=== PATIENT | female | born 1940 | race Caucasian/White ===

== ENCOUNTER 2017-04-11 17:36 | Emergency (ER) | payer MEDICARE ==
[2017-04-11] MEDS ORDERED: Sodium Chloride 0.9% 1000 ML 1,000 ML IV STA (18:19)
--- NOTE | 2017-04-11 18:25 | ERPHSYRPT ---
- History of Present Illness Time Seen by Provider: 04/11/17 18:15 Source: patient Exam Limitations: no limitations Patient Subjective Stated Complaint: HAS HAD SMALL RED AREA TO RIGHT FOREARM FOR TWO WEEKS. BEING TREATED WITH MUPIRICIN OINT. SAW THE INFUSION C[facility] TODAY FOR FLUIDS AND STARTED ON CEPHALEXIN FOR INFECTION TODAY. Triage Nursing Assessment: TO ROOM PER W/C. SKIN PALE, W/D. RESP EASY. MOUTH DRY. NO VOMITING AT PRESENT TIME. Physician History: This is a 76-year-old white female with history of peripheral neuropathy, diabetes, arrhythmia, high blood pressure, rheumatoid arthritis, She arrives with complaint of a approximately 2 cm lesion on her right distal forearm ulnar aspect symptoms for approximately 2 weeks this is been raised erythematous with a darkened center. She states that she felt like she was dehydrated she was having chills today she saw her family doctor sent her to the infusion center and was given 2 L of normal saline and given a prescription for Keflex of which she has taken one dose. She states that she feels like she is having chills and feels hot. She is not vomiting not short of breath. She denies other complaints. 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 Past surgical history includes cardiac catheter, hysterectomy, bladder suspension Timing/Duration: other (lesion on right arm for 2 weeks, feels hot and chills today) Associated Symptoms: chills, fever, rash (lesion right arm), No nausea, No vomiting, No abdominal pain, No shortness of breath, No heartburn, No diaphoresis, No cough, No chest pain, No headaches, No loss of appetite, No malaise, No syncope, No seizure, No weakness Allergies/Adverse Reactions: No Known Drug Allergies Allergy (Verified 04/11/17 18:07) Home Medications: Amlodipine Besylate [Norvasc] 2.5 mg PO DAILY 04/11/17 [History] Aspirin EC 81 mg [Ecotrin 81 mg] 81 mg PO DAILY 04/11/17 [History] Atorvastatin Calcium [Lipitor 20MG Tablet] 20 mg PO HS 04/11/17 [History] Carvedilol 6.25 mg [Coreg 6.25 MG] 6.25 mg PO BID 04/11/17 [History] Fluoxetine HCl 20 mg [Prozac 20 MG] 20 mg PO DAILY 04/11/17 [History] Folic Acid 2 tab PO DAILY 04/11/17 [History] Gabapentin [Neurontin] 600 mg PO BID 04/11/17 [History] Glipizide/Metformin HCl [Glipizide-Metformin 2.5-500 mg] 1 each PO BID 04/11/17 [History] Golimumab [Simponi Aria] 50 mg IV CLARIFY 04/11/17 [History] Hydroxychloroquine Sulfate [Plaquenil] 200 mg PO BID 04/11/17 [History] Isosorbide Mononitrate 30 mg [Imdur 30 MG] 30 mg PO DAILY 04/11/17 [History ] Losartan/Hydrochlorothiazide [Losartan-Hctz 50-12.5 mg Tab] 1 each PO DAILY [History] Lysine HCl [l-Lysine] 500 mg PO DAILY 04/11/17 [History] Methotrexate Sodium [Methotrexate] 8 tab PO WEEKLY 04/11/17 [History] [place]-3 Fatty Acids/Fish Oil [Fish Oil 1,000 mg Capsule] 1,000 mg PO DAILY 04/11/17 [History] Hx Tetanus, Diphtheria Vaccination/Date Given: No Hx Influenza Vaccination/Date Given: Yes Hx Pneumococcal Vaccination/Date Given: Yes - Review of Systems Constitutional: Fever, Chills, No Fatigue, No Lethargy, No Malaise, No Night Sweats, No Weakness, No Weight Loss Eyes: No Symptoms Ears, Nose, & Throat: No Symptoms, No Ear Pain, No Ear Discharge, No Hearing Changes, No Tinnitus, No Nose Pain, No Nose Congestion, No Nose Discharge, No Sinus Drainage, No Epistaxis, No Mouth Pain, No Loose Teeth, No Throat Pain, No Throat Swelling, No Hoarse, No Painful Swallowing, No Snoring, No Stridor Respiratory: No Cough, No Dyspnea Cardiac: No Chest Pain, No Edema, No Syncope Abdominal/Gastrointestinal: No Abdominal Pain, No Nausea, No Vomiting, No Diarrhea Genitourinary Symptoms: No Dysuria Musculoskeletal: No Back Pain, No Neck Pain Skin: Other (2 cm raised erythematous lesion right distal forearm ulnar aspect with darkened center) Neurological: No Dizziness, No Focal Weakness, No Sensory Changes Psychological: No Symptoms Endocrine: No Symptoms All Other Systems: Reviewed and Negative - Past Medical History Pertinent Past Medical History: Yes Neurological History: Peripheral Neuropathy ENT History: No Pertinent History Cardiac History: Arrhythmia, Hypertension Respiratory History: No Pertinent History Endocrine Medical History: Diabetes Type II Musculoskeletal History: Rheumatoid Arthritis, Other GI Medical History: No Pertinent History History: No Pertinent History Psycho-Social History: No Pertinent History Female Reproductive Disorders: No Pertinent History Other Medical History: Heart flutter, 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, lupus, Schograns - Past Surgical History Past Surgical History: Yes Neuro Surgical History: No Pertinent History Cardiac: Cardiac Catheterization Respiratory: No Pertinent History Gastrointestinal: No Pertinent History Genitourinary: No Pertinent History Musculoskeletal: No Pertinent History Female Surgical History: Hysterectomy Other Surgical History: bladder suspension - Social History Smoking Status: Never smoker Exposure to second hand smoke: No Drug Use: none Patient Lives Alone: No - Nursing Vital Signs Nursing Vital Signs: Initial Vital Signs Temperature 100.7 F 04/11/17 17:42 Pulse Rate 80 04/11/17 17:42 Respiratory Rate 18 04/11/17 17:42 Blood Pressure 160/66 04/11/17 17:42 O2 Sat by Pulse Oximetry 93 L 04/11/17 17:42 Pain Scale Pain Intensity 0 - Physical Exam General Appearance: no apparent distress, alert Eye Exam: PERRL/EOMI, eyes nml inspection Ears, Nose, Throat Exam: normal ENT inspection, TMs normal, pharynx normal, moist mucous membranes Neck Exam: normal inspection, non-tender, supple, full range of motion Respiratory Exam: normal breath sounds, lungs clear, No respiratory distress Cardiovascular Exam: regular rate/rhythm, normal heart sounds, normal peripheral pulses Gastrointestinal/Abdomen Exam: soft, normal bowel sounds, No tenderness, No mass Back Exam: normal inspection, normal range of motion, No CVA tenderness, No vertebral tenderness Extremity Exam: normal range of motion, other (2 cm raised erythematous lesion right distal forearm ulnar aspect) Neurologic Exam: alert, oriented x 3, cooperative, normal mood/affect, nml cerebellar function, nml station & gait, sensation nml, No motor deficits Skin Exam: other (2 cm raised erythematous lesion with darkened center right distal forearm ulnar aspect) Lymphatic Exam: No adenopathy SpO2 Interpretation: normal (93%) SpO2: 93 Oxygen Delivery: Room Air Ordered Tests: Active Orders 24 hr Category Date Time Status IV Insertion STAT Care 04/11/17 18:19 Active BLOOD CULTURE Stat Lab 04/11/17 18:45 Received CBC W DIFF Stat Lab 04/11/17 18:44 Completed CMP Stat Lab 04/11/17 18:44 Completed CULTURE,URINE Stat Lab 04/11/17 18:44 Received Manual Differential NC Stat Lab 04/11/17 18:44 Completed UA W/ MICROSCOPIC Stat Lab 04/11/17 18:44 Completed Medication Summary Generic Name Dose Route Start Last Admin Trade Name Freq PRN Reason Stop Dose Admin Sodium Chloride 1,000 mls @ 999 mls/hr 04/11/17 18:19 04/11/17 18:35 Sodium Chloride 0.9% 1000 Ml IV 04/11/17 19:19 999 mls/hr .[id number] STA Administration Discontinued Medications Generic Name Dose Route Start Last Admin Trade Name Freq PRN Reason Stop Dose Admin Sodium Chloride Confirm 04/11/17 18:34 Sodium Chloride 0.9% 1000 Ml Administered 04/11/17 18:35 Dose 1,000 mls @ ud .ROUTE .STK-MED ONE Lab/Rad Data: Laboratory Result Diagrams 04/11/17 18:44 04/11/17 18:44 Laboratory Results 04/11/17 04/11/17 04/11/17 Range/Units 18:44 18:44 18:44 WBC 14.2 H (4.0-10.5) K/mm3 RBC 3.61 L (4.1-5.4) M/mm3 Hgb 11.1 L (12.0-16.0) gm/dl Hct 33.1 L (35-47) % MCV 91.7 (78-100) fl MCH 30.7 (26-32) pg MCHC 33.5 (32-36) g/dl RDW 15.0 H (11.5-14.0) % Plt Count 143 L (150-450) K/mm3 MPV 9.9 H (6-9.5) fl Gran % 67.0 H (36.0-66.0) % Lymphocytes % 14.4 L (24.0-44.0) % Monocytes % 18.2 H (0.0-12.0) % Eosinophils % 0.1 (0.00-5.0) % Basophils % 0.3 (0.0-0.4) % Basophils # 0.04 (0-0.4) Sodium 137 (136-145) mEq/L Potassium 3.4 L (3.5-5.1) mEq/L Chloride 103 (98-107) mEq/L Carbon Dioxide 22.2 (21-32) mEq/L Anion Gap 15.0 (5-15) MEQ/L BUN 24 H (9-20) mg/dL Creatinine 1.16 (0.55-1.30) mg/dl Estimated GFR 49 ML/MIN Glucose 80 (70-110) MG/DL Calcium 8.2 L (8.5-10.1) mg/dL Total Bilirubin 1.60 H (0.2-1.0) mg/dL AST 40 H (15-37) U/L ALT 45 (12-78) U/L Alkaline Phosphatase 96 (46-116) U/L Serum Total Protein 7.0 (6.4-8.2) gm/dL Albumin 3.2 L (3.4-5.0) g/dL Ur Collection Type VOID Urine Color YELLOW (YELLOW) Urine Appearance SLIGHTLY CLOUDY (CLEAR) Urine pH 5.0 (5-6) Ur Specific [place] 1.010 (1.005-1.025) Urine Protein TRACE (Negative) Urine Ketones NEGATIVE (NEGATIVE) Urine Blood 250 (0-5) Jack/ul Urine Nitrite NEGATIVE (NEGATIVE) Urine Bilirubin NEGATIVE (NEGATIVE) Urine Urobilinogen NORMAL (0-1) mg/dL Ur Leukocyte Esterase 1+ (NEGATIVE) Urine Microscopic RBC 5-10 (0-2) /HPF Urine Microscopic WBC 25-50 (0-5) /HPF Ur Epithelial Cells FEW (FEW) /HPF Urine Bacteria MODERATE (NEGATIVE) /HPF Urine Culture Reflexed YES (NO) Urine Glucose NEGATIVE (NEGATIVE) mg/dL Specimen Received 04/11/17 1900 - Progress Progress: improved Progress Note: 04/11/17 19:16 Patient feeling better after IV fluids patient with 25-50 white cells per high- power field in her urine. Will give patient Rocephin 1 g IV. Patient does not want to be admitted. Patient does have a prescription for Keflex from her family doctor plans to follow-up with him tomorrow - Departure Time of Disposition: :17 Departure Disposition: Home Clinical Impression: Cellulitis of right forearm Fever Qualifiers: Fever type: due to other condition Qualified Code(s): R50.81 - Fever presenting with conditions classified elsewhere UTI (urinary tract infection) Qualifiers: Urinary tract infection type: acute cystitis Hematuria presence: without hematuria Qualified Code(s): N30.00 - Acute cystitis without hematuria Condition: Fair Critical Care Time: No Referrals: KATHIE HODGE MD [Primary Care Provider] - Instructions: Fever (Symptom) -- Adult Additional Instructions: Return home. Plenty of fluids Tylenol every 4 hours as needed for temperature greater than 100.5. Keflex as prescribed by your family doctor. Contact your family doctor tomorrow and schedule follow-up appointment. Return for acute distress or for severe symptoms.
[2017-04-11] MEDS ORDERED: Sodium Chloride 0.9% 1000 ML 1,000 ML ONE (18:34)
[2017-04-11 18:48] LABS: BASOPHIL % 0.3 % (0.0-0.4); Eosinophil % 0.1 % (0.00-5.0); Lymphocytes % 14.4 % (24.0-44.0); Mean Cell Volume 91.7 fl (78-100); Mean Corpuscular Hemoglobin 30.7 pg (26-32); Mean Platelet Volume 9.9 fl (6-9.5); Monocytes % 18.2 % (0.0-12.0); Platelet Count 143 K/mm3 (150-450); Red Blood Count 3.61 M/mm3 (4.1-5.4); White Blood Count 14.2 K/mm3 (4.0-10.5)
[2017-04-11 19:10] LABS: ALBUMIN 3.2 g/dL (3.4-5.0); BILIRUBIN,TOTAL 1.6 mg/dL (0.2-1.0); Carbon Dioxide 22.2 mEq/L (21-32); Potassium 3.4 mEq/L (3.5-5.1)
[2017-04-11 19:13] LABS: Bilirubin NEGATIVE (NEGATIVE); Blood 250 Ery/ul (0-5); COMPLETE URINE MICROSCOPIC? YES; Collection Type VOID; Glucose NEGATIVE (NEGATIVE); Leukocyte Esterase 1+ (NEGATIVE)
[2017-04-11 19:14] LABS: ADD URINE CULTURE? YES (NO); Bacteria MODERATE /HPF (NEGATIVE); Epithelial Cells FEW /HPF (FEW); WBC 25-50 /HPF (0-5)
[2017-04-11] MEDS ORDERED: ROCEPHIN 1 Gm-D5w 50 ml Bag** 1 G/50 ML IVPB IV STA (19:16)
[2017-04-11] MEDS ORDERED: ROCEPHIN 1 Gm-D5w 50 ml Bag** 1 G/50 ML IVPB IV ONE (19:29)
[2017-04-11 19:47] VITALS: BP 118/60; PULSE 76; O2SAT 100
[2017-04-11 20:56] LABS: ANISOCYTOSIS 1+; BAND 4 % (0.0-2.0); Basophil 1 % (0.0-1.0); Platelet Estimate NORMAL (NORMAL); Polychromasia 1+; Total Cells Counted 100
== END 2017-04-11 19:48 | disposition home or self-care (01) ==
LOC: ED 17:36
DX: R50.81 Fever presenting with conditions classified elsewhere (principal); N30.00 Acute cystitis without hematuria; L03.113 Cellulitis of right upper limb; E11.9 Type 2 diabetes mellitus without complications; I10 Essential (primary) hypertension; M35.00 Sjogren syndrome, unspecified; Z79.84 Long term (current) use of oral hypoglycemic drugs; Z79.899 Other long term (current) drug therapy
CPT/HCPCS: 36000; 36415; 80053; 81000; 85025; 87040; 87086; 96360; 96365; 99284; J0696

== ENCOUNTER 2018-10-12 08:31 | Inpatient (IN) | payer MEDICARE ==
[~2018-10-12 08:31] MED LIST: Ambien 5 MG Tablet ONE; Coreg 6.25 MG ONE; NEURONTIN 300 MG ONE; Sodium Chloride 0.9% 1000 ML 1,000 ML ONE; ZOCOR 20MG ONE
--- NOTE | 2018-10-12 09:22 | ERPHSYRPT ---
- History of Present Illness Time Seen by Provider: 10/12/18 09:15 Historian: patient Exam Limitations: no limitations Patient Subjective Stated Complaint: lower abd since last sunday. dx with uti and put on antibiotic but is not getting any better Triage Nursing Assessment: ambulated to room per self. skin w/d, color pale. patient moaning at times. abd soft, tender in lower abd. Physician History: 77-year-old white female arrives with suprapubic pain and dysuria symptoms for 5 days. She states that she was placed on an antibiotic by her family doctor doesn't think it is getting any better. She does state that she thinks she has some bladder prolapse. Past medical history includes peripheral neuropathy, arrhythmia, high blood pressure, diabetes type 2, rheumatoid arthritis, heart flutter, lupus, Sjogren' s syndrome. Past surgical history includes cardiac catheter, hysterectomy, bladder suspension Timing/Duration: day(s) (5 days) Activities at Onset: none Quality: cramping, sharpness Abdominal Pain Onset Location: suprapubic Pain Radiation: no radiation Severity of Pain-Max: moderate Severity of Pain-Current: moderate Modifying Factors: Improves With: other (patient states pain only with urinating ) Associated Symptoms: No back, No chest pain, No diaphoresis, No diarrhea, No fever/chills, No fatigue, No headache, No heartburn, No loss of appetite, No nausea, No neck pain, No rash, No shortness of breath, No syncope, No vomiting, No weakness Previous symptoms: recently seen (seen by Dr. Hodge) Allergies/Adverse Reactions: No Known Drug Allergies Allergy (Verified 10/12/18 09:02) Home Medications: Amlodipine Besylate [Norvasc] 2.5 mg PO DAILY 04/11/17 [History] Aspirin EC 81 mg [Ecotrin 81 mg] 81 mg PO DAILY 04/11/17 [History] Atorvastatin Calcium [Lipitor 20MG Tablet] 20 mg PO HS 04/11/17 [History] Carvedilol 6.25 mg [Coreg 6.25 MG] 6.25 mg PO BID 04/11/17 [History] Fluoxetine HCl 20 mg [Prozac 20 MG] 20 mg PO DAILY 04/11/17 [History] Folic Acid 2 tab PO DAILY 04/11/17 [History] Gabapentin [Neurontin] 600 mg PO BID 04/11/17 [History] Glipizide/Metformin HCl [Glipizide-Metformin 2.5-500 mg] 1 each PO BID 04/11/17 [History] Golimumab [Simponi Aria] 50 mg IV CLARIFY 04/11/17 [History] Hydroxychloroquine Sulfate [Plaquenil] 200 mg PO BID 04/11/17 [History] Isosorbide Mononitrate 30 mg [Imdur 30 MG] 30 mg PO DAILY 04/11/17 [History ] Losartan/Hydrochlorothiazide [Losartan-Hctz 50-12.5 mg Tab] 1 each PO DAILY [History] Lysine HCl [l-Lysine] 500 mg PO DAILY 04/11/17 [History] Methotrexate Sodium [Methotrexate] 8 tab PO WEEKLY 04/11/17 [History] [place]-3 Fatty Acids/Fish Oil [Fish Oil 1,000 mg Capsule] 1,000 mg PO DAILY 04/11/17 [History] Hx Tetanus, Diphtheria Vaccination/Date Given: Yes Hx Influenza Vaccination/Date Given: Yes Hx Pneumococcal Vaccination/Date Given: Yes - Review of Systems Constitutional: No Fever, No Chills Eyes: No Symptoms Ears, Nose, & Throat: No Symptoms Respiratory: No Cough, No Dyspnea Cardiac: No Chest Pain, No Edema, No Syncope Abdominal/Gastrointestinal: Abdominal Pain (suprapubic abdominal pain) Genitourinary Symptoms: Dysuria Musculoskeletal: No Symptoms Skin: No Rash Neurological: No Dizziness, No Focal Weakness, No Sensory Changes Psychological: No Symptoms Endocrine: No Symptoms All Other Systems: Reviewed and Negative (not answering the phone) - Past Medical History Pertinent Past Medical History: Yes Neurological History: Peripheral Neuropathy ENT History: No Pertinent History Cardiac History: Arrhythmia, Hypertension Respiratory History: No Pertinent History Endocrine Medical History: Diabetes Type II Musculoskeletal History: Rheumatoid Arthritis, Other GI Medical History: No Pertinent History History: No Pertinent History Psycho-Social History: No Pertinent History Female Reproductive Disorders: No Pertinent History Other Medical History: Heart flutter, 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, lupus, Schograns - Past Surgical History Past Surgical History: Yes Neuro Surgical History: No Pertinent History Cardiac: Cardiac Catheterization Respiratory: No Pertinent History Gastrointestinal: No Pertinent History Genitourinary: No Pertinent History Musculoskeletal: No Pertinent History Female Surgical History: Hysterectomy Other Surgical History: bladder suspension - Social History Smoking Status: Never smoker Exposure to second hand smoke: No Drug Use: none Patient Lives Alone: No - Female History Hx Now: No - Nursing Vital Signs Nursing Vital Signs: Initial Vital Signs Temperature 98.3 F 10/12/18 08:52 Pulse Rate 79 10/12/18 08:52 Respiratory Rate 18 10/12/18 08:52 Blood Pressure 179/77 10/12/18 08:52 O2 Sat by Pulse Oximetry 98 10/12/18 08:52 Pain Scale Pain Intensity 5 - Physical Exam General Appearance: no apparent distress, alert Eye Exam: PERRL/EOMI, eyes nml inspection Ears, Nose, Throat Exam: normal ENT inspection (return if you don't believe), pharynx normal, moist mucous membranes Neck Exam: normal inspection, non-tender, supple, full range of motion Respiratory Exam: normal breath sounds, lungs clear, No respiratory distress Cardiovascular Exam: regular rate/rhythm, normal heart sounds, capillary refill <2 sec Gastrointestinal/Abdomen Exam: soft, No tenderness, No mass Back Exam: normal inspection, normal range of motion, No CVA tenderness, No vertebral tenderness Extremity Exam: normal inspection, normal range of motion, pelvis stable Neurologic Exam: alert, oriented x 3, cooperative, timber cruiser II-XII nml as tested, normal mood/affect, nml cerebellar function, sensation nml, No motor deficits Skin Exam: normal color, warm, dry SpO2 Interpretation: normal (98%) SpO2: 98 Ordered Tests: Active Orders 24 hr Category Date Time Status IV Insertion STAT Care 10/12/18 09:18 Active AMYLASE Stat Lab 10/12/18 09:10 Completed BLOOD CULTURE Stat Lab 10/12/18 11:00 Ordered CBC W DIFF Stat Lab 10/12/18 09:10 Completed CMP Stat Lab 10/12/18 09:10 Completed CULTURE,URINE Stat Lab 10/12/18 10:19 Received LIPASE Stat Lab 10/12/18 09:10 Completed Manual Differential NC Stat Lab 10/12/18 09:10 Completed UA W/RFX UR CULTURE Stat Lab 10/12/18 10:19 Completed Medication Summary Generic Name Dose Route Start Last Admin Trade Name Freq PRN Reason Stop Dose Admin Ceftriaxone Sodium/Dextrose 1 g in 50 mls @ 100 mls/hr 10/12/18 11:02 Rocephin 1 Gm-D5w 50 Ml Bag IV 10/12/18 11:31 STAT STA Lab/Rad Data: Laboratory Result Diagrams 10/12/18 09:10 10/12/18 09:10 Laboratory Results 10/12/18 10/12/18 10/12/18 Range/Units 10:19 09:10 09:10 WBC 15.3 H (4.0-10.5) K/mm3 RBC 4.01 L (4.1-5.4) M/mm3 Hgb 12.7 (12.0-16.0) gm/dl Hct 37.6 (35-47) % MCV 93.8 (78-100) fl MCH 31.6 (26-32) pg MCHC 33.8 (32-36) g/dl RDW 14.4 H (11.5-14.0) % Plt Count 128 L (150-450) K/mm3 MPV 10.3 H (6-9.5) fl Gran % 82.1 H (36.0-66.0) % Eos # (Auto) 0 (0-0.5) Absolute Lymphs (auto) 0.67 L (1.0-4.6) Absolute Monos (auto) 2.05 H (0.0-1.3) Lymphocytes % 4.4 L (24.0-44.0) % Monocytes % 13.4 H (0.0-12.0) % Eosinophils % 0.0 (0.00-5.0) % Basophils % 0.1 (0.0-0.4) % Absolute Granulocytes 12.56 H (1.4-6.9) Segmented Neutrophils 86 H (36.0-66.0) % Band Neutrophils 4 H (0.0-2.0) % Lymphocytes (Manual) 9 L (24-44) % Monocytes (Manual) 1 (0.0-12.0) % Basophils # 0.02 (0-0.4) Platelet Estimate NORMAL (NORMAL) RBC Morphology ABNORMAL Polychromasia 1+ Anisocytosis 1+ Sodium 134 L (137-145) mmol/L Potassium 3.6 (3.5-5.1) mmol/L Chloride 100 (98-107) mmol/L Carbon Dioxide 24 (22-30) mmol/L Anion Gap 14.1 (5-15) MEQ/L BUN 21 H (7-17) mg/dL Creatinine 1.00 (0.52-1.04) mg/dL Estimated GFR 57.4 ML/MIN Glucose 158 H (74-106) mg/dL Calcium 9.5 (8.4-10.2) mg/dL Total Bilirubin 2.80 H (0.2-1.3) mg/dL AST 28 (14-36) U/L ALT 28 (0-35) U/L Alkaline Phosphatase 87 (38-126) U/L Serum Total Protein 7.0 (6.3-8.2) g/dL Albumin 3.6 (3.5-5.0) g/dL Amylase 36 (30-110) U/L Lipase 38 (23-300) U/L Urine Color RAFA (YELLOW) Urine Appearance CLOUDY (CLEAR) Urine pH 6.0 (5-6) Ur Specific [place] 1.015 (1.005-1.025) Urine Protein 100 (Negative) Urine Ketones SMALL (NEGATIVE) Urine Blood LARGE (0-5) Jack/ul Urine Nitrite NEGATIVE (NEGATIVE) Urine Bilirubin NEGATIVE (NEGATIVE) Urine Urobilinogen 2 (0-1) mg/dL Ur Leukocyte Esterase LARGE (NEGATIVE) Urine WBC (Auto) >100 (0-5) /HPF Urine RBC (Auto) >101 (0-2) /HPF U Hyaline Cast (Auto) 3-5 (0-2) /LPF U Epithel Cells (Auto) RARE (FEW) /HPF Urine Bacteria (Auto) MODERATE (NEGATIVE) /HPF U Non-Squamous Epi Cells RARE (FEW) /HPF Urine Culture Reflexed YES (NO) Urine Glucose NEGATIVE (NEGATIVE) mg/dL - Progress Progress: improved Progress Note: 10/12/18 11:03 77-year-old white female with history of peripheral neuropathy, arrhythmia, high blood pressure, diabetes type 2, rheumatoid arthritis, heart flutter, lupus , Sjogren's syndrome. Patient arrives with complaint of dysuria and some right lower quadrant abdominal pain symptoms for 5 days Patient was placed on an antibiotic by her family doctor she states that she continues to have dysuria pain with urination. She does state that she has some bladder prolapse. Patient with labs showing urinalysis specific gravity 1.015 pH 6.0 white blood cell greater than 100 red blood cell greater than 101 Patient's chemistry sodium 134 potassium 3.6 chloride 100 bicarbonate 24 BUN 21 creatinine 1.00 glucose 158 total bilirubin is 2.80 patient's CBC white blood cell 15.3 hemoglobin 12.7 hematocrit 37.6 platelets 128 I've discussed patient' s case with her she does have a urinary tract infection Will obtain blood cultures and give patient Rocephin 1 g IV. She wishes to be admitted I've discussed the case with Dr. Glover. Will go ahead and place patient on a full admission. Diagnosis urinary tract infection. Failed outpatient treatment. Will continue IV fluids IV Rocephin. - Departure Departure Disposition: In-patient Admission Clinical Impression: Failure of outpatient treatment UTI (urinary tract infection) Qualifiers: Urinary tract infection type: site unspecified Hematuria presence: with hematuria Qualified Code(s): N39.0 - Urinary tract infection, site not specified ; R31.9 - Hematuria, unspecified Condition: Fair Critical Care Time: No Referrals: KATHIE HODGE MD [Primary Care Provider] -
[2018-10-12 09:44] LABS: BASOPHIL % 0.1 % (0.0-0.4); Basophil (Absolute #) 0.02 (0-0.4); Eosinophil (Absolute #) 0 (0-0.5); Granulocyte Absolute (ANC) 12.56 (1.4-6.9); Granulocytes % 82.1 % (36.0-66.0); Hematocrit 37.6 % (35-47); Hemoglobin 12.7 gm/dl (12.0-16.0); Lymphocyte (Absolute #) 0.67 (1.0-4.6); Lymphocytes % 4.4 % (24.0-44.0); Mean Cell Volume 93.8 fl (78-100); Mean Corpuscular Hgb Concent. 33.8 g/dl (32-36); Mean Platelet Volume 10.3 fl (6-9.5); Monocyte (Absolute #) 2.05 (0.0-1.3); Monocytes % 13.4 % (0.0-12.0); Platelet Count 128 K/mm3 (150-450); Red Blood Count 4.01 M/mm3 (4.1-5.4); Red Cell Distribution Width 14.4 % (11.5-14.0); White Blood Count 15.3 K/mm3 (4.0-10.5)
[2018-10-12 09:45] LABS: ALBUMIN 3.6 g/dL (3.5-5.0); ANION GAP 14.1 MEQ/L (5-15); BILIRUBIN,TOTAL 2.8 mg/dL (0.2-1.3); Calcium 9.5 mg/dL (8.4-10.2); Potassium 3.6 mmol/L (3.5-5.1)
[2018-10-12 09:47] LABS: Mean Corpuscular Hemoglobin 31.6 pg (26-32)
[2018-10-12 10:16] LABS: BAND 4 % (0.0-2.0); Lymphocytes 9 % (24-44); Monocyte 1 % (0.0-12.0); Neutrophils 86 % (36.0-66.0); Polychromasia 1+; Total Cells Counted 100
[2018-10-12 10:17] LABS: ANISOCYTOSIS 1+; Platelet Estimate NORMAL (NORMAL)
[2018-10-12 10:33] LABS: Appearance CLOUDY (CLEAR); Bilirubin NEGATIVE (NEGATIVE); Blood LARGE Ery/ul (0-5); Epithelial Cells RARE /HPF (FEW); Glucose NEGATIVE (NEGATIVE); Ketones SMALL (NEGATIVE); Leukocyte Esterase LARGE (NEGATIVE); Nitrite NEGATIVE (NEGATIVE); Non-Squamous Epithelial Cells RARE /HPF (FEW); Protein,Urine Dip 100 (Negative); Specific Gravity 1.015 (1.005-1.025); Urobilinogen 2 mg/dL (0-1); WBC >100 /HPF (0-5)
[2018-10-12 10:34] LABS: RBC >101 /HPF (0-2)
[2018-10-12 10:35] LABS: Bacteria MODERATE /HPF (NEGATIVE)
[2018-10-12] MEDS ORDERED: ROCEPHIN 1 Gm-D5w 50 ml Bag** 1 G/50 ML IVPB IV STA (11:02)
[2018-10-12] MEDS ORDERED: ROCEPHIN 1 Gm-D5w 50 ml Bag** 1 G/50 ML IVPB IV ONE (11:09)
[2018-10-12] MEDS ORDERED: NovoLOG Insulin SQ PRN (13:02)
[2018-10-12] MEDS: NORVASC 5 MG PO SCH (14:24)
[2018-10-12] MEDS: Imdur 30 MG PO SCH (14:24)
[2018-10-12] MEDS: Cozaar 50 MG PO SCH (14:24)
[2018-10-12] MEDS: ECOTRIN 81 MG PO SCH (14:25)
[2018-10-12] MEDS: hydroDIURIL 25 MG PO SCH (14:25)
[2018-10-12] MEDS: Prozac 20 MG PO SCH (14:25)
[2018-10-12] MEDS: Coreg 6.25 MG PO SCH ×2 (14:25→21:38)
--- NOTE | 2018-10-12 14:49 | PCM.HP ---
History of Present Illness - Chief Complaint Chief Complaint: UTI History of Present Illness: is a 77 year old female pt of Dr. Hoskins with PMHx DM, HTN, RA, lupus, sjogren's and an arrhythmia who came to ER c/o dysuria and fever. She was treated starting 2d ago by Dr. Hoskins with po macrobid bid. Her dysuria has persisted, and she started having subjective fevers, vomiting, and now some R flank pain. 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 Hoskins did not do a urine culture. - Review of Systems Constitutional: Fever Abdominal/Gastrointestinal: Vomiting Genitourinary Symptoms: Dysuria, Hematuria (microscopic only, not josep), Flank Pain Psychological: No Depression, No Suicidal Ideations All Other Systems: Reviewed and Negative Medications & Allergies Home Medications: Home Medication List Amlodipine Besylate [Norvasc] 2.5 mg PO DAILY 04/11/17 [History Confirmed ] Aspirin EC 81 mg [Ecotrin 81 mg] 81 mg PO DAILY 04/11/17 [History Confirmed 10/12/18] Atorvastatin Calcium [Lipitor 20MG Tablet] 20 mg PO HS 04/11/17 [History Confirmed 10/12/18] Carvedilol 6.25 mg [Coreg 6.25 MG] 6.25 mg PO BID 04/11/17 [History Confirmed 10/12/18] Fluoxetine HCl 20 mg [Prozac 20 MG] 20 mg PO DAILY 04/11/17 [History Confirmed 10/12/18] Folic Acid 2 tab PO DAILY 04/11/17 [History Confirmed 10/12/18] Gabapentin [Neurontin] 300 mg PO UD 04/11/17 [History Confirmed 10/12/18] Glipizide/Metformin HCl [Glipizide-Metformin 2.5-500 mg] 1 each PO DAILY [History Confirmed 10/12/18] Golimumab [Simponi Aria] 50 mg IV CLARIFY 04/11/17 [History Confirmed 10/12/18] Hydroxychloroquine Sulfate [Plaquenil] 200 mg PO DAILY 04/11/17 [History Confirmed 10/12/18] Isosorbide Mononitrate 30 mg [Imdur 30 MG] 30 mg PO DAILY 04/11/17 [ History Confirmed 10/12/18] Losartan/Hydrochlorothiazide [Losartan-Hctz 50-12.5 mg Tab] 1 each PO DAILY [History Confirmed 10/12/18] Lysine HCl [l-Lysine] 500 mg PO DAILY 04/11/17 [History Confirmed 10/12/18] Methotrexate Sodium [Methotrexate] 7 tab PO WEEKLY 04/11/17 [History Confirmed 10/12/18] [place]-3 Fatty Acids/Fish Oil [Fish Oil 1,000 mg Capsule] 1,000 mg PO DAILY 04/11/17 [History Confirmed 10/12/18] Gabapentin 600 mg PO HS 10/12/18 [History Confirmed 10/12/18] Allergies/Adverse Reactions: Allergies Allergy/AdvReac Type Severity Reaction Status Date / Time No Known Drug Allergies Allergy Verified 10/12/18 09:02 - Past Medical History Past Medical History: Yes Neurological History: Peripheral Neuropathy ENT History: Cataracts Cardiac History: Arrhythmia, Hypertension Respiratory History: No Pertinent History Endocrine Medical History: Diabetes Type II Musculoskelatal History: Rheumatoid Arthritis, Other GI Medical History: No Pertinent History History: No Pertinent History Pyscho-Social History: No Pertinent History Reproductive Disorders: No Pertinent History Comment: Heart flutter, 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, lupus, Schograns and lupus - Female History Are you now?: No - Past Surgical History Past Surgical History: Yes Neuro Surgical History: No Pertinent History Cardiac History: Cardiac Catheterization Respiratory Surgery: No Pertinent History GI Surgical History: No Pertinent History Genitourinary Surgical Hx: No Pertinent History Musculskeletal Surgical Hx: No Pertinent History Female Surgical History: Hysterectomy Other Surgical History: bladder suspension - Social History Smoking Status: Never smoker Exposure to second hand smoke: No Alcohol: None Drug Use: none - Physical Exam Vital Signs: Vital Signs - 24 hr Temp Pulse Resp BP Pulse Ox 10/12/18 13:04 100.0 F 89 20 188/90 96 10/12/18 13:02 96 10/12/18 12:59 100 F 89 20 188/90 96 10/12/18 12:50 100.0 F 89 20 188/90 96 10/12/18 12:15 73 16 148/66 97 10/12/18 11:27 72 16 175/66 95 10/12/18 11:06 98 10/12/18 10:15 74 18 156/62 93 L 10/12/18 08:52 98.3 F 79 18 179/77 98 General Appearance: no apparent distress, alert Neurologic Exam: cooperative, No slurred speech Eye Exam: eyes nml inspection Ears, Nose, Throat Exam: moist mucous membranes Respiratory Exam: normal breath sounds, lungs clear, No crackles/rales, No rhonchi, No wheezing Cardiovascular Exam: regular rate/rhythm, normal heart sounds, No murmur Gastrointestinal/Abdomen Exam: soft, normal bowel sounds, No tenderness, No distention, No mass, No guarding, No rebound Back Exam: normal inspection, No CVA tenderness, No rash Extremity Exam: normal inspection, No pedal edema, No swelling Skin Exam: normal color, warm, dry, No rash Results - Labs Lab/Micro Results: Lab Results-Last 24 Hours 10/12/18 10/12/18 10/12/18 Range/Units 09:10 09:10 10:19 WBC 15.3 H (4.0-10.5) K/mm3 RBC 4.01 L (4.1-5.4) M/mm3 Hgb 12.7 (12.0-16.0) gm/dl Hct 37.6 (35-47) % MCV 93.8 (78-100) fl MCH 31.6 (26-32) pg MCHC 33.8 (32-36) g/dl RDW 14.4 H (11.5-14.0) % Plt Count 128 L (150-450) K/mm3 MPV 10.3 H (6-9.5) fl Gran % 82.1 H (36.0-66.0) % Eos # (Auto) 0 (0-0.5) Absolute Lymphs (auto) 0.67 L (1.0-4.6) Absolute Monos (auto) 2.05 H (0.0-1.3) Lymphocytes % 4.4 L (24.0-44.0) % Monocytes % 13.4 H (0.0-12.0) % Eosinophils % 0.0 (0.00-5.0) % Basophils % 0.1 (0.0-0.4) % Absolute Granulocytes 12.56 H (1.4-6.9) Segmented Neutrophils 86 H (36.0-66.0) % Band Neutrophils 4 H (0.0-2.0) % Lymphocytes (Manual) 9 L (24-44) % Monocytes (Manual) 1 (0.0-12.0) % Basophils # 0.02 (0-0.4) Platelet Estimate NORMAL (NORMAL) RBC Morphology ABNORMAL Polychromasia 1+ Anisocytosis 1+ Sodium 134 L (137-145) mmol/L Potassium 3.6 (3.5-5.1) mmol/L Chloride 100 (98-107) mmol/L Carbon Dioxide 24 (22-30) mmol/L Anion Gap 14.1 (5-15) MEQ/L BUN 21 H (7-17) mg/dL Creatinine 1.00 (0.52-1.04) mg/dL Estimated GFR 57.4 ML/MIN Glucose 158 H (74-106) mg/dL Hemoglobin A1c (4.5-6.0) % Calcium 9.5 (8.4-10.2) mg/dL Total Bilirubin 2.80 H (0.2-1.3) mg/dL AST 28 (14-36) U/L ALT 28 (0-35) U/L Alkaline Phosphatase 87 (38-126) U/L Serum Total Protein 7.0 (6.3-8.2) g/dL Albumin 3.6 (3.5-5.0) g/dL Amylase 36 (30-110) U/L Lipase 38 (23-300) U/L Urine Color RAFA (YELLOW) Urine Appearance CLOUDY (CLEAR) Urine pH 6.0 (5-6) Ur Specific [place] 1.015 (1.005-1.025) Urine Protein 100 (Negative) Urine Ketones SMALL (NEGATIVE) Urine Blood LARGE (0-5) Jack/ul Urine Nitrite NEGATIVE (NEGATIVE) Urine Bilirubin NEGATIVE (NEGATIVE) Urine Urobilinogen 2 (0-1) mg/dL Ur Leukocyte Esterase LARGE (NEGATIVE) Urine WBC (Auto) >100 (0-5) /HPF Urine RBC (Auto) >101 (0-2) /HPF U Hyaline Cast (Auto) 3-5 (0-2) /LPF U Epithel Cells (Auto) RARE (FEW) /HPF Urine Bacteria (Auto) MODERATE (NEGATIVE) /HPF U Non-Squamous Epi Cells RARE (FEW) /HPF Urine Culture Reflexed YES (NO) Urine Glucose NEGATIVE (NEGATIVE) mg/dL 10/12/18 Range/Units Unknown WBC (4.0-10.5) K/mm3 RBC (4.1-5.4) M/mm3 Hgb (12.0-16.0) gm/dl Hct (35-47) % MCV (78-100) fl MCH (26-32) pg MCHC (32-36) g/dl RDW (11.5-14.0) % Plt Count (150-450) K/mm3 MPV (6-9.5) fl Gran % (36.0-66.0) % Eos # (Auto) (0-0.5) Absolute Lymphs (auto) (1.0-4.6) Absolute Monos (auto) (0.0-1.3) Lymphocytes % (24.0-44.0) % Monocytes % (0.0-12.0) % Eosinophils % (0.00-5.0) % Basophils % (0.0-0.4) % Absolute Granulocytes (1.4-6.9) Segmented Neutrophils (36.0-66.0) % Band Neutrophils (0.0-2.0) % Lymphocytes (Manual) (24-44) % Monocytes (Manual) (0.0-12.0) % Basophils # (0-0.4) Platelet Estimate (NORMAL) RBC Morphology Polychromasia Anisocytosis Sodium (137-145) mmol/L Potassium (3.5-5.1) mmol/L Chloride (98-107) mmol/L Carbon Dioxide (22-30) mmol/L Anion Gap (5-15) MEQ/L BUN (7-17) mg/dL Creatinine (0.52-1.04) mg/dL Estimated GFR ML/MIN Glucose (74-106) mg/dL Hemoglobin A1c 5.43 (4.5-6.0) % Calcium (8.4-10.2) mg/dL Total Bilirubin (0.2-1.3) mg/dL AST (14-36) U/L ALT (0-35) U/L Alkaline Phosphatase (38-126) U/L Serum Total Protein (6.3-8.2) g/dL Albumin (3.5-5.0) g/dL Amylase (30-110) U/L Lipase (23-300) U/L Urine Color (YELLOW) Urine Appearance (CLEAR) Urine pH (5-6) Ur Specific [place] (1.005-1.025) Urine Protein (Negative) Urine Ketones (NEGATIVE) Urine Blood (0-5) Jack/ul Urine Nitrite (NEGATIVE) Urine Bilirubin (NEGATIVE) Urine Urobilinogen (0-1) mg/dL Ur Leukocyte Esterase (NEGATIVE) Urine WBC (Auto) (0-5) /HPF Urine RBC (Auto) (0-2) /HPF U Hyaline Cast (Auto) (0-2) /LPF U Epithel Cells (Auto) (FEW) /HPF Urine Bacteria (Auto) (NEGATIVE) /HPF U Non-Squamous Epi Cells (FEW) /HPF Urine Culture Reflexed (NO) Urine Glucose (NEGATIVE) mg/dL Assessment/Plan (1) UTI (urinary tract infection) Current Visit: Yes Status: Acute Qualifiers: Urinary tract infection type: site unspecified Hematuria presence: with hematuria Qualified Code(s): N39.0 - Urinary tract infection, site not specified; R31.9 - Hematuria, unspecified Assessment & Plan: on IV rocephin, ucx pending. Blood cx pending. WBC 15.8. recheck in a.m. Code(s): N39.0 - URINARY TRACT INFECTION, SITE NOT SPECIFIED (2) Diabetes mellitus Current Visit: Yes Status: Chronic Qualifiers: Diabetes mellitus type: type 2 Diabetes mellitus shelter insulin use: without intermediate accountant use Diabetes mellitus complication status: with kidney complications Diabetes mellitus complication detail: with other kidney complication Qualified Code(s): E11.29 - Type 2 diabetes mellitus with other diabetic kidney complication Code(s): E11.9 - TYPE 2 DIABETES MELLITUS WITHOUT COMPLICATIONS (3) HTN (hypertension) Current Visit: Yes Status: Chronic Qualifiers: Hypertension type: essential hypertension Qualified Code(s): I10 - Essential (primary) hypertension Assessment & Plan: BP elevated but I do not think she had any bp meds until she came to the hospital. Code(s): I10 - ESSENTIAL (PRIMARY) HYPERTENSION (4) Rheumatoid arthritis Current Visit: Yes Status: Chronic Qualifiers: Rheumatoid arthritis location: unspecified site Rheumatoid factor presence : unspecified presence Qualified Code(s): M06.9 - Rheumatoid arthritis, unspecified Assessment & Plan: I have held her rheumatoid meds for now Code(s): M06.9 - RHEUMATOID ARTHRITIS, UNSPECIFIED (5) Failure of outpatient treatment Current Visit: Yes Status: Acute Code(s): Z78.9 - OTHER SPECIFIED HEALTH STATUS (6) Total bilirubin, elevated Current Visit: Yes Status: Acute Assessment & Plan: recheck in a.m. Code(s): R17 - UNSPECIFIED JAUNDICE
[2018-10-12] MEDS: TYLENOL 325 MG PO PRN ×2 (15:12→21:54)
[2018-10-12] MEDS: NEURONTIN 300 MG PO SCH ×2 (17:56→21:39)
[2018-10-12] MEDS: ZOCOR 20MG PO SCH (21:38)
[2018-10-12] MEDS ORDERED: NON-FORMULARY ITEM (Atorvastatin Calcium 20 MG) PO SCH (22:00)
[2018-10-13 06:18] LABS: Hematocrit 34.6 % (35-47); Hemoglobin 11.6 gm/dl (12.0-16.0); Mean Cell Volume 93.8 fl (78-100); Mean Corpuscular Hemoglobin 31.4 pg (26-32); Mean Corpuscular Hgb Concent. 33.5 g/dl (32-36); Mean Platelet Volume 10.5 fl (6-9.5); Platelet Count 116 K/mm3 (150-450); Red Blood Count 3.69 M/mm3 (4.1-5.4); Red Cell Distribution Width 14.8 % (11.5-14.0); White Blood Count 18.3 K/mm3 (4.0-10.5)
[2018-10-13 06:43] LABS: ALBUMIN 3.1 g/dL (3.5-5.0); ANION GAP 13.8 MEQ/L (5-15); BILIRUBIN,TOTAL 2.1 mg/dL (0.2-1.3); Calcium 8.9 mg/dL (8.4-10.2); Creatinine 1 1.63 mg/dL (0.52-1.04); Potassium 3.7 mmol/L (3.5-5.1); Total Protein 6.4 g/dL (6.3-8.2)
[2018-10-13 07:10] LABS: BAND 6 % (0.0-2.0); Lymphocytes 11 % (24-44); Metamyelocyte 1 %; Monocyte 6 % (0.0-12.0); Neutrophils 76 % (36.0-66.0); Platelet Estimate NORMAL (NORMAL); Polychromasia 1+; Total Cells Counted 100; Toxic Granulation 1+
[2018-10-13 07:11] LABS: Poikilocytosis 1+
[2018-10-13] MEDS: TYLENOL 325 MG PO PRN ×3 (08:26→21:13)
[2018-10-13] MEDS: NEURONTIN 300 MG PO SCH ×3 (08:27→21:13)
[2018-10-13] MEDS ORDERED: Sodium Chloride 0.9% 500 ML 500 ML IV ONE (08:44)
[2018-10-13] MEDS ORDERED: NON-FORMULARY ITEM (Amlodipine Besylate [Norvasc] 2.5 MG) PO SCH (10:00)
[2018-10-13] MEDS ORDERED: NON-FORMULARY ITEM (Losartan/Hydrochlorothiazide [Losartan-Hctz 50-12.5 Mg Tab] 1 EACH) PO SCH (10:00)
[2018-10-13] MEDS ORDERED: Levofloxacin 500MG/100ML D5W 500 MG/100 ML BAG IV SCH (10:00)
[2018-10-13] MEDS ORDERED: ROCEPHIN 1 Gm-D5w 50 ml Bag** 1 G/50 ML IVPB IV SCH (10:00)
[2018-10-13] MEDS: Coreg 6.25 MG PO SCH ×2 (10:10→21:12)
[2018-10-13] MEDS: Cozaar 50 MG PO SCH (10:11)
[2018-10-13] MEDS: hydroDIURIL 25 MG PO SCH (10:11)
[2018-10-13] MEDS: ECOTRIN 81 MG PO SCH (10:11)
[2018-10-13] MEDS: NORVASC 5 MG PO SCH (10:13)
[2018-10-13] MEDS: Imdur 30 MG PO SCH (10:13)
[2018-10-13] MEDS: Prozac 20 MG PO SCH (10:14)
--- NOTE | 2018-10-13 10:27 | PCM.NOTE ---
Date and Time: 10/13/18 1023 Subjective Assessment: She is feeling weak and tired with very little appetite. She fell yesterday and had to scoot on her bottom around the edge of her bed to get to the call light. No abd pain. - Review of Systems Constitutional: No Fever (Tmax 100.1) Abdominal/Gastrointestinal: Diarrhea (x1), Appetite Changes, No Abdominal Pain Objective Exam General Appearance: no apparent distress, alert Neurologic Exam: oriented x 3, cooperative Skin Exam: normal color, warm, dry, No rash Ears, Nose, Throat Exam: moist mucous membranes Respiratory Exam: normal breath sounds, lungs clear, No crackles/rales, No rhonchi, No wheezing Cardiovascular Exam: regular rate/rhythm, normal heart sounds, No murmur Gastrointestinal/Abdomen Exam: soft, No normal bowel sounds (hypoactive), No tenderness, No distention, No mass, No guarding, No rebound Extremity Exam: normal inspection, No pedal edema, No swelling OBJECTIVE DATA Vital Signs: Vital Signs - 24 hr Temp Pulse Resp BP Pulse Ox 10/13/18 07:24 99.9 F 82 18 120/74 97 10/13/18 04:00 98.9 F 97 H 18 125/62 93 L 10/13/18 00:00 98.5 F 74 18 99/49 91 L 10/12/18 20:41 96 10/12/18 20:00 99.9 F 70 18 118/56 97 10/12/18 15:04 100.1 F 83 20 127/92 96 10/12/18 13:04 100.0 F 89 20 188/90 96 10/12/18 13:02 96 10/12/18 12:59 100 F 89 20 188/90 96 10/12/18 12:50 100.0 F 89 20 188/90 96 10/12/18 12:15 73 16 148/66 97 10/12/18 11:27 72 16 175/66 95 10/12/18 11:06 98 Pain Assessment - Last Documented Pain Intensity 4 Pain Scale Used 0-10 Pain Scale Intake and Output: Intake & Output 10/10/18 10/11/18 10/12/18 10/13/18 11:59 11:59 11:59 11:59 Intake Total 1580 Output Total 800 Balance 780 Weight 79.832 kg 60.1 kg Lab Results: Accuchecks Date 10/13/18 Date 10/12/18 Time 07:30 Time 16:30 Accucheck Value: 154 Accucheck Value: 150 Accucheck Value: 153 Lab Results-Last 24 Hours 10/12/18 10/12/18 10/13/18 Range/Units 10:19 Unknown 05:35 WBC 18.3 H (4.0-10.5) K/mm3 RBC 3.69 L (4.1-5.4) M/mm3 Hgb 11.6 L (12.0-16.0) gm/dl Hct 34.6 L (35-47) % MCV 93.8 (78-100) fl MCH 31.4 (26-32) pg MCHC 33.5 (32-36) g/dl RDW 14.8 H (11.5-14.0) % Plt Count 116 L (150-450) K/mm3 MPV 10.5 H (6-9.5) fl Segmented Neutrophils 76 H (36.0-66.0) % Band Neutrophils 6 H (0.0-2.0) % Lymphocytes (Manual) 11 L (24-44) % Monocytes (Manual) 6 (0.0-12.0) % Metamyelocytes 1 % Toxic Granulation 1+ Platelet Estimate NORMAL (NORMAL) RBC Morphology ABNORMAL Polychromasia 1+ Poikilocytosis 1+ Sodium (137-145) mmol/L Potassium (3.5-5.1) mmol/L Chloride (98-107) mmol/L Carbon Dioxide (22-30) mmol/L Anion Gap (5-15) MEQ/L BUN (7-17) mg/dL Creatinine (0.52-1.04) mg/dL Estimated GFR ML/MIN Glucose (74-106) mg/dL Hemoglobin A1c 5.43 (4.5-6.0) % Calcium (8.4-10.2) mg/dL Total Bilirubin (0.2-1.3) mg/dL AST (14-36) U/L ALT (0-35) U/L Alkaline Phosphatase (38-126) U/L Serum Total Protein (6.3-8.2) g/dL Albumin (3.5-5.0) g/dL Urine Color RAFA (YELLOW) Urine Appearance CLOUDY (CLEAR) Urine pH 6.0 (5-6) Ur Specific [place] 1.015 (1.005-1.025) Urine Protein 100 (Negative) Urine Ketones SMALL (NEGATIVE) Urine Blood LARGE (0-5) Jack/ul Urine Nitrite NEGATIVE (NEGATIVE) Urine Bilirubin NEGATIVE (NEGATIVE) Urine Urobilinogen 2 (0-1) mg/dL Ur Leukocyte Esterase LARGE (NEGATIVE) Urine WBC (Auto) >100 (0-5) /HPF Urine RBC (Auto) >101 (0-2) /HPF U Hyaline Cast (Auto) 3-5 (0-2) /LPF U Epithel Cells (Auto) RARE (FEW) /HPF Urine Bacteria (Auto) MODERATE (NEGATIVE) /HPF U Non-Squamous Epi Cells RARE (FEW) /HPF Urine Culture Reflexed YES (NO) Urine Glucose NEGATIVE (NEGATIVE) mg/dL 10/13/18 Range/Units 05:35 WBC (4.0-10.5) K/mm3 RBC (4.1-5.4) M/mm3 Hgb (12.0-16.0) gm/dl Hct (35-47) % MCV (78-100) fl MCH (26-32) pg MCHC (32-36) g/dl RDW (11.5-14.0) % Plt Count (150-450) K/mm3 MPV (6-9.5) fl Segmented Neutrophils (36.0-66.0) % Band Neutrophils (0.0-2.0) % Lymphocytes (Manual) (24-44) % Monocytes (Manual) (0.0-12.0) % Metamyelocytes % Toxic Granulation Platelet Estimate (NORMAL) RBC Morphology Polychromasia Poikilocytosis Sodium 133 L (137-145) mmol/L Potassium 3.7 (3.5-5.1) mmol/L Chloride 97 L (98-107) mmol/L Carbon Dioxide 26 (22-30) mmol/L Anion Gap 13.8 (5-15) MEQ/L BUN 31 H (7-17) mg/dL Creatinine 1.63 H (0.52-1.04) mg/dL Estimated GFR 32.7 ML/MIN Glucose 159 H (74-106) mg/dL Hemoglobin A1c (4.5-6.0) % Calcium 8.9 (8.4-10.2) mg/dL Total Bilirubin 2.10 H (0.2-1.3) mg/dL AST 43 H (14-36) U/L ALT 32 (0-35) U/L Alkaline Phosphatase 78 (38-126) U/L Serum Total Protein 6.4 (6.3-8.2) g/dL Albumin 3.1 L (3.5-5.0) g/dL Urine Color (YELLOW) Urine Appearance (CLEAR) Urine pH (5-6) Ur Specific [place] (1.005-1.025) Urine Protein (Negative) Urine Ketones (NEGATIVE) Urine Blood (0-5) Jack/ul Urine Nitrite (NEGATIVE) Urine Bilirubin (NEGATIVE) Urine Urobilinogen (0-1) mg/dL Ur Leukocyte Esterase (NEGATIVE) Urine WBC (Auto) (0-5) /HPF Urine RBC (Auto) (0-2) /HPF U Hyaline Cast (Auto) (0-2) /LPF U Epithel Cells (Auto) (FEW) /HPF Urine Bacteria (Auto) (NEGATIVE) /HPF U Non-Squamous Epi Cells (FEW) /HPF Urine Culture Reflexed (NO) Urine Glucose (NEGATIVE) mg/dL Multi-Disciplinary Progress Notes: Multi-Disciplinary Progress Notes 10/12/18 14:21 Case Management Note by Jenni Fong DISCHARGE PLAN REVIEWED NO LAYCAREGIVER ASSIGNED. NORMALLY LIVES AT HOME WITH SPOUSE, NO DME OR SERVICES. HAS TRANSPORTATION AND COVERAGE FOR RX. PLAN TO RETURN HOME TO PRE EPISODIC LEVEL OF FUNCTION. WILL CONTINUE TO MONITOR FOR ALL D/C NEEDS. Initialized on 10/12/18 14:21 - END OF NOTE Assessment/Plan (1) UTI (urinary tract infection) Current Visit: Yes Status: Acute Qualifiers: Urinary tract infection type: site unspecified Hematuria presence: with hematuria Qualified Code(s): N39.0 - Urinary tract infection, site not specified; R31.9 - Hematuria, unspecified Assessment & Plan: On IV rocephin x 1d; her WBC count is elevated so will change to IV levaquin. Code(s): N39.0 - URINARY TRACT INFECTION, SITE NOT SPECIFIED (2) Renal insufficiency Current Visit: Yes Status: Acute Assessment & Plan: Did not have any fluids running this morning, so will give 400cc bolus NS then run NS at 100cc/hr. Recheck labs in morning. May bolus her again later this afternoon. (3) Diabetes mellitus Current Visit: Yes Status: Chronic Qualifiers: Diabetes mellitus type: type 2 Diabetes mellitus custodial insulin use: without ad terminal makeup operator use Diabetes mellitus complication status: with kidney complications Diabetes mellitus complication detail: with other kidney complication Qualified Code(s): E11.29 - Type 2 diabetes mellitus with other diabetic kidney complication Code(s): E11.9 - TYPE 2 DIABETES MELLITUS WITHOUT COMPLICATIONS (4) HTN (hypertension) Current Visit: Yes Status: Chronic Qualifiers: Hypertension type: essential hypertension Qualified Code(s): I10 - Essential (primary) hypertension Code(s): I10 - ESSENTIAL (PRIMARY) HYPERTENSION (5) Rheumatoid arthritis Current Visit: Yes Status: Chronic Qualifiers: Rheumatoid arthritis location: unspecified site Rheumatoid factor presence : unspecified presence Qualified Code(s): M06.9 - Rheumatoid arthritis, unspecified Code(s): M06.9 - RHEUMATOID ARTHRITIS, UNSPECIFIED (6) Failure of outpatient treatment Current Visit: Yes Status: Acute Code(s): Z78.9 - OTHER SPECIFIED HEALTH STATUS (7) Total bilirubin, elevated Current Visit: Yes Status: Acute Assessment & Plan: down to 2.1 from 2.8; recheck in a.m. Code(s): R17 - UNSPECIFIED JAUNDICE (8) Fall Current Visit: Yes Status: Acute Qualifiers: Encounter type: initial encounter Qualified Code(s): W19.XXXA - Unspecified fall, initial encounter Assessment & Plan: no c/o injury afterward. on fall precautions now. Code(s): W19.XXXA - UNSPECIFIED FALL, INITIAL ENCOUNTER (9) DVT prophylaxis Current Visit: Yes Status: Acute Assessment & Plan: will start lovenox; I discussed with her, no hx PUD/bleeding ulcers. Code(s): [id number] -
[2018-10-13] MEDS ORDERED: ENOXAPARIN SODIUM SQ SCH (11:00)
[2018-10-13] MEDS: Sodium Chloride 0.9% 1000 ML 1,000 ML IV SCH ×2 (11:19→21:13)
[2018-10-13] MEDS: ENOXAPARIN SODIUM SQ SCH (11:20)
[2018-10-13] MEDS: ZOCOR 20MG PO SCH (21:13)
[2018-10-14 06:06] LABS: Hematocrit 35.5 % (35-47); Hemoglobin 11.9 gm/dl (12.0-16.0); Mean Cell Volume 93.2 fl (78-100); Mean Corpuscular Hemoglobin 31.2 pg (26-32); Mean Corpuscular Hgb Concent. 33.5 g/dl (32-36); Mean Platelet Volume 10.9 fl (6-9.5); Platelet Count 108 K/mm3 (150-450); Red Blood Count 3.81 M/mm3 (4.1-5.4); Red Cell Distribution Width 14.9 % (11.5-14.0)
[2018-10-14 06:45] LABS: ALBUMIN 2.5 g/dL (3.5-5.0); ANION GAP 13.7 MEQ/L (5-15); Calcium 8.5 mg/dL (8.4-10.2); Creatinine 1 1.21 mg/dL (0.52-1.04); Potassium 3.3 mmol/L (3.5-5.1); Total Protein 5.4 g/dL (6.3-8.2)
[2018-10-14 06:55] LABS: BAND 5 % (0.0-2.0); Lymphocytes 6 % (24-44); Monocyte 9 % (0.0-12.0); Neutrophils 80 % (36.0-66.0); Total Cells Counted 100
[2018-10-14 06:56] LABS: Platelet Estimate NORMAL (NORMAL); Polychromasia 1+
[2018-10-14] MEDS: Sodium Chloride 0.9% 1000 ML 1,000 ML IV SCH ×2 (08:01→17:51)
[2018-10-14] MEDS: NEURONTIN 300 MG PO SCH ×3 (08:01→21:41)
[2018-10-14] MEDS: NORVASC 5 MG PO SCH (09:26)
[2018-10-14] MEDS: Coreg 6.25 MG PO SCH ×2 (09:26→21:40)
[2018-10-14] MEDS: Cozaar 50 MG PO SCH (09:26)
[2018-10-14] MEDS: Levaquin 250MG/50ML D5W 250 MG/50 ML BAG IV SCH (09:26)
[2018-10-14] MEDS: ECOTRIN 81 MG PO SCH (09:28)
[2018-10-14] MEDS: hydroDIURIL 25 MG PO SCH (09:28)
[2018-10-14] MEDS: Imdur 30 MG PO SCH (09:28)
[2018-10-14] MEDS: Prozac 20 MG PO SCH (10:46)
[2018-10-14] MEDS: TYLENOL 325 MG PO PRN ×2 (10:46→19:45)
[2018-10-14] MEDS: ENOXAPARIN SODIUM SQ SCH (10:46)
--- NOTE | 2018-10-14 12:50 | PCM.NOTE ---
Date and Time: 10/14/18 1248 Subjective Assessment: still very weak, fever and chills - Review of Systems Constitutional: Fatigue, Malaise, Weakness, No Fever, No Chills Eyes: No Symptoms Ears, Nose, & Throat: No Symptoms Respiratory: No Cough, No Short Of Breath Cardiac: No Chest Pain, No Edema, No Syncope Abdominal/Gastrointestinal: No Abdominal Pain, No Nausea, No Vomiting, No Diarrhea Genitourinary Symptoms: No Dysuria Musculoskeletal: No Back Pain, No Neck Pain Skin: No Rash Neurological: No Dizziness, No Focal Weakness, No Sensory Changes Psychological: No Symptoms Endocrine: No Symptoms Hematologic/Lymphatic: No Symptoms Immunological/Allergic: No Symptoms Objective Exam General Appearance: no apparent distress, alert Neurologic Exam: alert, oriented x 3, cooperative, normal mood/affect, nml cerebellar function, sensation nml, No motor deficits Skin Exam: normal color, warm, dry Eye Exam: PERRL, EOMI, eyes nml inspection Ears, Nose, Throat Exam: normal ENT inspection, pharynx normal, moist mucous membranes Neck Exam: normal inspection, non-tender, supple, full range of motion Respiratory Exam: normal breath sounds, lungs clear, No respiratory distress Cardiovascular Exam: regular rate/rhythm, normal heart sounds Gastrointestinal/Abdomen Exam: soft, No tenderness, No mass Extremity Exam: normal inspection, normal range of motion Back Exam: normal inspection, normal range of motion, No CVA tenderness, No vertebral tenderness Pelvic Exam: deferred Rectal Exam: deferred OBJECTIVE DATA Vital Signs: Vital Signs - 24 hr Temp Pulse Resp BP Pulse Ox 10/14/18 08:00 99.8 F 75 18 148/66 91 L 10/14/18 04:00 100.5 F 80 20 137/72 94 L 10/13/18 23:59 99.0 F 66 16 108/53 90 L 10/13/18 20:00 99.9 F 73 20 126/59 94 L 10/13/18 16:35 101 F 76 20 138/65 94 L Pain Assessment - Last Documented Pain Intensity 4 Pain Scale Used 0-10 Pain Scale Intake and Output: Intake & Output 10/12/18 10/13/18 10/14/18 10/15/18 11:59 11:59 11:59 11:59 Intake Total 1580 4011 Output Total 800 1200 Balance 780 2811 Weight 79.832 kg 60.1 kg Lab Results: Accuchecks Date 10/13/18 Time 16:30 Accucheck Value: 99 Accucheck Value: 102 Accucheck Value: 110 Accucheck Value: 99 Lab Results-Last 24 Hours 10/14/18 10/14/18 Range/Units 05:15 05:15 WBC 15.0 H (4.0-10.5) K/mm3 RBC 3.81 L (4.1-5.4) M/mm3 Hgb 11.9 L (12.0-16.0) gm/dl Hct 35.5 (35-47) % MCV 93.2 (78-100) fl MCH 31.2 (26-32) pg MCHC 33.5 (32-36) g/dl RDW 14.9 H (11.5-14.0) % Plt Count 108 L (150-450) K/mm3 MPV 10.9 H (6-9.5) fl Segmented Neutrophils 80 H (36.0-66.0) % Band Neutrophils 5 H (0.0-2.0) % Lymphocytes (Manual) 6 L (24-44) % Monocytes (Manual) 9 (0.0-12.0) % Platelet Estimate NORMAL (NORMAL) RBC Morphology ABNORMAL Polychromasia 1+ Sodium 134 L (137-145) mmol/L Potassium 3.3 L (3.5-5.1) mmol/L Chloride 103 (98-107) mmol/L Carbon Dioxide 21 L (22-30) mmol/L Anion Gap 13.7 (5-15) MEQ/L BUN 27 H (7-17) mg/dL Creatinine 1.21 H (0.52-1.04) mg/dL Estimated GFR 46.1 ML/MIN Glucose 96 (74-106) mg/dL Calcium 8.5 (8.4-10.2) mg/dL Total Bilirubin 2.00 H (0.2-1.3) mg/dL AST 67 H (14-36) U/L ALT 40 H (0-35) U/L Alkaline Phosphatase 74 (38-126) U/L Serum Total Protein 5.4 L (6.3-8.2) g/dL Albumin 2.5 L (3.5-5.0) g/dL Assessment/Plan (1) UTI (urinary tract infection) Current Visit: Yes Status: Acute Qualifiers: Urinary tract infection type: site unspecified Hematuria presence: with hematuria Qualified Code(s): N39.0 - Urinary tract infection, site not specified; R31.9 - Hematuria, unspecified Assessment & Plan: Last Vital Signs Temp 99.8 F 10/14/18 08:00 Pulse 75 10/14/18 08:00 Resp 18 10/14/18 08:00 BP 148/66 10/14/18 08:00 Pulse Ox 91 L 10/14/18 08:00 Allergies No Known Drug Allergies Allergy (Verified 10/12/18 09:02) Active Medications Acetaminophen (Tylenol 325 Mg) 650 mg PO Q4H PRN PRN PRN Reason: PAIN AND/OR FEVER Stop: 11/11/18 14:14 Last Admin: 10/14/18 10:46 Dose: 650 mg Amlodipine Besylate (Norvasc 5 Mg) 2.5 mg PO DAILY [facility] Stop: 11/11/18 13:59 Last Admin: 10/14/18 09:26 Dose: 2.5 mg Aspirin (Ecotrin 81 Mg) 81 mg PO DAILY [facility] Stop: 11/11/18 13:59 Last Admin: 10/14/18 09:28 Dose: 81 mg Carvedilol (Coreg 6.25 Mg) 6.25 mg PO BID [facility] Stop: 11/11/18 13:59 Last Admin: 10/14/18 09:26 Dose: 6.25 mg Enoxaparin Sodium (Enoxaparin Sodium) 30 mg SQ DAILY [facility] Stop: 11/12/18 10:59 Last Admin: 10/14/18 10:46 Dose: 30 mg Fluoxetine HCl (Prozac 20 Mg) 20 mg PO DAILY [facility] Stop: 11/11/18 13:59 Last Admin: 10/14/18 10:46 Dose: 20 mg Gabapentin (Neurontin 300 Mg) 300 mg PO 0800,1800 [facility] Stop: 11/11/18 17:59 Last Admin: 10/14/18 08:01 Dose: 300 mg Gabapentin (Neurontin 300 Mg) 600 mg PO HS [facility] Stop: 11/11/18 21:59 Last Admin: 10/13/18 21:13 Dose: 600 mg Hydrochlorothiazide (Hydrodiuril 25 Mg) 12.5 mg PO DAILY [facility] Stop: 11/11/18 13:59 Last Admin: 10/14/18 09:28 Dose: 12.5 mg Sodium Chloride (Sodium Chloride 0.9% 1000 Ml) 1,000 mls @ 100 mls/hr IV .Q10H [facility] Stop: 11/12/18 08:44 Last Admin: 10/14/18 08:01 Dose: 100 mls/hr Levofloxacin/Dextrose (Levaquin 250mg/50ml D5w) 250 mg in 50 mls @ 50 mls/hr IV DAILY [facility] Stop: 11/13/18 09:59 Last Admin: 10/14/18 09:26 Dose: 50 mls/hr Insulin Aspart (Novolog Insulin) 0 unit SQ UD PRN PRN Reason: HYPERGLYCEMIA Stop: 11/11/18 13:01 Isosorbide Mononitrate (Imdur 30 Mg) 30 mg PO DAILY [facility] Stop: 11/11/18 13:59 Last Admin: 10/14/18 09:28 Dose: 30 mg Losartan Potassium (Cozaar 50 Mg) 50 mg PO DAILY [facility] Stop: 11/11/18 13:59 Last Admin: 10/14/18 09:26 Dose: 50 mg Simvastatin (Zocor 20mg) 20 mg PO HS [facility] Stop: 11/11/18 21:59 Last Admin: 10/13/18 21:13 Dose: 20 mg Intake & Output 10/14/18 10/15/18 11:59 11:59 Intake Total 4011 Output Total 1200 Balance 2811 Lab Tests 10/14/18 10/14/18 05:15 05:15 WBC 15.0 H RBC 3.81 L Hgb 11.9 L Hct 35.5 MCV 93.2 MCH 31.2 MCHC 33.5 RDW 14.9 H Plt Count 108 L MPV 10.9 H Segmented Neutrophils 80 H Band Neutrophils 5 H Lymphocytes (Manual) 6 L Monocytes (Manual) 9 Platelet Estimate NORMAL RBC Morphology ABNORMAL Polychromasia 1+ Sodium 134 L Potassium 3.3 L Chloride 103 Carbon Dioxide 21 L Anion Gap 13.7 BUN 27 H Creatinine 1.21 H Estimated GFR 46.1 Glucose 96 Calcium 8.5 Total Bilirubin 2.00 H AST 67 H ALT 40 H Alkaline Phosphatase 74 Serum Total Protein 5.4 L Albumin 2.5 L Microbiology 10/12/18 11:10 Blood Blood Culture Gram Stain - Final 10/12/18 11:10 Blood Blood Culture - Preliminary GRAM NEGATIVE ID AND SENSITIVITY PENDING 10/12/18 11:15 Blood Blood Culture - Preliminary NO GROWTH TO DATE 10/12/18 10:19 Clean Catch Midstream Urine Culture - Final Escherichia Coli Code(s): N39.0 - URINARY TRACT INFECTION, SITE NOT SPECIFIED (2) Diabetes mellitus Current Visit: Yes Status: Chronic Qualifiers: Diabetes mellitus type: type 2 Diabetes mellitus manager intermediate insulin use: without manager intermediate use Diabetes mellitus complication status: with kidney complications Diabetes mellitus complication detail: with other kidney complication Qualified Code(s): E11.29 - Type 2 diabetes mellitus with other diabetic kidney complication Code(s): E11.9 - TYPE 2 DIABETES MELLITUS WITHOUT COMPLICATIONS (3) HTN (hypertension) Current Visit: Yes Status: Chronic Qualifiers: Hypertension type: essential hypertension Qualified Code(s): I10 - Essential (primary) hypertension Code(s): I10 - ESSENTIAL (PRIMARY) HYPERTENSION
[2018-10-14 14:11] LABS: 027 TOX PROD PRESUMPTIVE NEGATIVE (NEGATIVE); TOXIGENIC C. DIFF ORG NEGATIVE (NEGATIVE)
[2018-10-14] MEDS ORDERED: IMODIUM 2 MG PO PRN (16:32)
[2018-10-14] MEDS: ZOCOR 20MG PO SCH (21:41)
[2018-10-14] MEDS: Ambien 5 MG Tablet PO SCH (21:41)
[2018-10-15] MEDS: Sodium Chloride 0.9% 1000 ML 1,000 ML IV SCH ×3 (03:35→22:53)
[2018-10-15] MEDS: TYLENOL 325 MG PO PRN ×2 (04:54→15:50)
[2018-10-15] MEDS: NEURONTIN 300 MG PO SCH ×3 (08:11→21:01)
--- NOTE | 2018-10-15 09:05 | PCM.NOTE ---
Date and Time: 10/15/18903 Subjective Assessment: doing ok - Review of Systems Constitutional: No Fever, No Chills Eyes: No Symptoms Ears, Nose, & Throat: No Symptoms Respiratory: No Cough, No Short Of Breath Cardiac: No Chest Pain, No Edema, No Syncope Abdominal/Gastrointestinal: No Abdominal Pain, No Nausea, No Vomiting, No Diarrhea Genitourinary Symptoms: No Dysuria Musculoskeletal: No Back Pain, No Neck Pain Skin: No Rash Neurological: No Dizziness, No Focal Weakness, No Sensory Changes Psychological: No Symptoms Endocrine: No Symptoms Hematologic/Lymphatic: No Symptoms Immunological/Allergic: No Symptoms Objective Exam General Appearance: no apparent distress, alert Neurologic Exam: alert, oriented x 3, cooperative, normal mood/affect, nml cerebellar function, sensation nml, No motor deficits Skin Exam: normal color, warm, dry Eye Exam: PERRL, EOMI, eyes nml inspection Ears, Nose, Throat Exam: normal ENT inspection, pharynx normal, moist mucous membranes Neck Exam: normal inspection, non-tender, supple, full range of motion Respiratory Exam: normal breath sounds, lungs clear, No respiratory distress Cardiovascular Exam: regular rate/rhythm, normal heart sounds Gastrointestinal/Abdomen Exam: soft, No tenderness, No mass Extremity Exam: normal inspection, normal range of motion Back Exam: normal inspection, normal range of motion, No CVA tenderness, No vertebral tenderness Pelvic Exam: deferred Rectal Exam: deferred OBJECTIVE DATA Vital Signs: Vital Signs - 24 hr Temp Pulse Resp BP Pulse Ox 10/15/18 07:26 98.5 F 86 20 147/80 97 10/15/18 05:30 92 L 10/15/18 05:23 86 L 10/15/18 04:00 102.1 F 77 26 H 162/69 91 L 10/15/18 00:00 99.1 F 67 16 145/66 93 L 10/14/18 20:00 101.5 F 72 20 166/67 94 L 10/14/18 16:00 99.8 F 67 18 146/67 94 L 10/14/18 12:00 101.6 F 70 18 128/74 91 L Oxygen-Last 24 hours O2 Percentage 3 Liters = 32% O2 Percentage 2 Liters = 28% Pain Assessment - Last Documented Pain Intensity 0 Pain Scale Used 0-10 Pain Scale Intake and Output: Intake & Output 0410/13/18 10/14/18 10/15/18 11:59 11:59 11:59 11:59 Intake Total 1580 4011 3943 Output Total 800 1200 Balance 780 2811 3943 Weight 79.832 kg 60.1 kg 60.1 kg Lab Results: Accuchecks Date 10/14/18 Time 22:00 Accucheck Value: 119 Accucheck Value: 111 Accucheck Value: 99 Lab Results-Last 24 Hours 10/14/18 Range/Units 13:10 Stl C. diff Tox B Gene NEGATIVE (NEGATIVE) C.difficile [id number] PRESUMPTIVE NEGATIVE (NEGATIVE) Assessment/Plan (1) Sepsis due to coliform organism Current Visit: Yes Status: Acute Assessment & Plan: sensitive to levaquin Code(s): A41.59 - OTHER GRAM-NEGATIVE SEPSIS (2) UTI (urinary tract infection) Current Visit: Yes Status: Acute Qualifiers: Urinary tract infection type: site unspecified Hematuria presence: with hematuria Qualified Code(s): N39.0 - Urinary tract infection, site not specified; R31.9 - Hematuria, unspecified Code(s): N39.0 - URINARY TRACT INFECTION, SITE NOT SPECIFIED (3) Diabetes mellitus Current Visit: Yes Status: Chronic Qualifiers: Diabetes mellitus type: type 2 Diabetes mellitus custodial insulin use: without terminal block assembler use Diabetes mellitus complication status: with kidney complications Diabetes mellitus complication detail: with other kidney complication Qualified Code(s): E11.29 - Type 2 diabetes mellitus with other diabetic kidney complication Code(s): E11.9 - TYPE 2 DIABETES MELLITUS WITHOUT COMPLICATIONS (4) HTN (hypertension) Current Visit: Yes Status: Chronic Qualifiers: Hypertension type: essential hypertension Qualified Code(s): I10 - Essential (primary) hypertension Code(s): I10 - ESSENTIAL (PRIMARY) HYPERTENSION
[2018-10-15] MEDS: Cozaar 50 MG PO SCH (09:46)
[2018-10-15] MEDS: ECOTRIN 81 MG PO SCH (09:46)
[2018-10-15] MEDS: hydroDIURIL 25 MG PO SCH (09:47)
[2018-10-15] MEDS: Prozac 20 MG PO SCH (09:49)
[2018-10-15] MEDS: NORVASC 5 MG PO SCH (09:49)
[2018-10-15] MEDS: ENOXAPARIN SODIUM SQ SCH (09:49)
[2018-10-15] MEDS: Coreg 6.25 MG PO SCH ×2 (09:50→21:01)
[2018-10-15] MEDS: Imdur 30 MG PO SCH (09:50)
[2018-10-15] MEDS: Levaquin 250MG/50ML D5W 250 MG/50 ML BAG IV SCH (09:50)
[2018-10-15] MEDS: ZOCOR 20MG PO SCH (21:01)
[2018-10-15] MEDS: Ambien 5 MG Tablet PO SCH (21:01)
[2018-10-16] MEDS: TYLENOL 325 MG PO PRN ×2 (00:26→15:00)
[2018-10-16 06:08] LABS: Hemoglobin 10.1 gm/dl (12.0-16.0); Mean Cell Volume 91.7 fl (78-100); Mean Corpuscular Hgb Concent. 33.7 g/dl (32-36); Mean Platelet Volume 10.4 fl (6-9.5); Platelet Count 125 K/mm3 (150-450); Red Blood Count 3.27 M/mm3 (4.1-5.4); Red Cell Distribution Width 14.9 % (11.5-14.0); White Blood Count 10.8 K/mm3 (4.0-10.5)
[2018-10-16 06:30] LABS: ANION GAP 11.1 MEQ/L (5-15); Creatinine 1 1.03 mg/dL (0.52-1.04); Mean Corpuscular Hemoglobin 30.8 pg (26-32)
[2018-10-16] MEDS: NEURONTIN 300 MG PO SCH ×3 (08:13→21:56)
[2018-10-16] MEDS: POTASSIUM CHLORIDE 20 mEq IN WATER 100ML 20 MEQ/100 ML BAG IV SCH ×4 (08:30→19:43)
[2018-10-16] MEDS: ECOTRIN 81 MG PO SCH (09:40)
[2018-10-16] MEDS: Coreg 6.25 MG PO SCH ×2 (09:40→21:56)
[2018-10-16] MEDS: ENOXAPARIN SODIUM SQ SCH (09:40)
[2018-10-16] MEDS: Cozaar 50 MG PO SCH (09:40)
[2018-10-16] MEDS: hydroDIURIL 25 MG PO SCH (09:41)
[2018-10-16] MEDS: NORVASC 5 MG PO SCH (09:42)
[2018-10-16] MEDS: Imdur 30 MG PO SCH (09:42)
[2018-10-16] MEDS: Prozac 20 MG PO SCH (09:42)
[2018-10-16] MEDS: Levaquin 250MG/50ML D5W 250 MG/50 ML BAG IV SCH (09:43)
--- NOTE | 2018-10-16 10:25 | XRAY ---
Indication: Short of breath. Wheezing. Comparison: August 02, 2016. Portable chest now demonstrates borderline cardiomegaly, mild interstitial edema, and small bibasilar effusions concerning for cardiac decompensation versus fluid overload. Superimposed pneumonia not completely excluded.
[2018-10-16] MEDS: Sodium Chloride 0.9% 1000 ML 1,000 ML IV SCH (11:10)
[2018-10-16] MEDS ORDERED: HOLD METFORMIN PRODUCTS FOR 48 HOURS MC SCH (12:30)
[2018-10-16] MEDS ORDERED: Lasix 40 MG/4 ML IV ONE (13:45)
--- NOTE | 2018-10-16 16:25 | XRAY ---
Indication: Short of breath. Wheezing. Elevated d-dimer. Multiple contiguous axial images obtained through the chest using 80 cc Isovue 370 contrast and PE protocol. Comparison: None There is satisfactory opacification of the pulmonary arteries to include the lobar and segmental branches. However mild respiration artifact limits evaluation of the more distal branches. No gross filling defect or pulmonary embolus. Heart is enlarged. No pedicle effusion. Aorta minimally arteriosclerotic without aneurysm/dissection. No pathologic mediastinal/hilar lymphadenopathy. Examination of the lung parenchyma demonstrates mild/moderate bilateral dependent pleural effusions with compressive atelectasis. Minimal right middle lobe and lingula fibrosis/scarring. Bony thorax intact. 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 Impression: 1. Pulmonary embolus evaluation limited by respiration artifact. No large/central pulmonary embolus. 2. Cardiomegaly with bilateral effusions favoring cardiac decompensation. 3. Incidental borderline splenomegaly and calcified splenic artery aneurysm. CTDI is 21.11
[2018-10-16] MEDS: ZOCOR 20MG PO SCH (21:56)
[2018-10-16] MEDS: Ambien 5 MG Tablet PO SCH (21:56)
[2018-10-17] MEDS: TYLENOL 325 MG PO PRN ×2 (00:31→19:48)
[2018-10-17] MEDS: NEURONTIN 300 MG PO SCH ×3 (08:02→21:18)
[2018-10-17] MEDS: Sodium Chloride 0.9% 1000 ML 1,000 ML IV SCH ×2 (08:02→12:31)
[2018-10-17] MEDS: POTASSIUM CHLORIDE 20 mEq IN WATER 100ML 20 MEQ/100 ML BAG IV SCH ×2 (09:11→11:12)
[2018-10-17] MEDS: hydroDIURIL 25 MG PO SCH (09:15)
[2018-10-17] MEDS: Imdur 30 MG PO SCH (09:15)
[2018-10-17] MEDS: NORVASC 5 MG PO SCH (09:16)
[2018-10-17] MEDS: Coreg 6.25 MG PO SCH ×2 (09:16→21:17)
[2018-10-17] MEDS: ECOTRIN 81 MG PO SCH (09:16)
[2018-10-17] MEDS: Prozac 20 MG PO SCH (09:16)
[2018-10-17] MEDS: Cozaar 50 MG PO SCH (09:16)
[2018-10-17] MEDS: ENOXAPARIN SODIUM SQ SCH (09:17)
[2018-10-17] MEDS: Levaquin 250MG/50ML D5W 250 MG/50 ML BAG IV SCH (12:35)
[2018-10-17] MEDS: ZOCOR 20MG PO SCH (21:17)
[2018-10-17] MEDS: Ambien 5 MG Tablet PO SCH (21:18)
[2018-10-18] MEDS ORDERED: Sodium Chloride 0.9% 10 ML FLUSH Syringe IV PRN (06:30)
[2018-10-18] MEDS: NEURONTIN 300 MG PO SCH (07:40)
[2018-10-18] MEDS: Levaquin 250MG/50ML D5W 250 MG/50 ML BAG IV SCH (09:33)
[2018-10-18] MEDS: ENOXAPARIN SODIUM SQ SCH (09:36)
[2018-10-18] MEDS: Cozaar 50 MG PO SCH (09:36)
[2018-10-18] MEDS: Imdur 30 MG PO SCH (09:36)
[2018-10-18] MEDS: Coreg 6.25 MG PO SCH (09:36)
[2018-10-18] MEDS: ECOTRIN 81 MG PO SCH (09:37)
[2018-10-18] MEDS: NORVASC 5 MG PO SCH (09:37)
[2018-10-18] MEDS: Prozac 20 MG PO SCH (09:37)
[2018-10-18] MEDS: hydroDIURIL 25 MG PO SCH (09:38)
[2018-10-18 13:09] VITALS: BP 165/69; PULSE 64; O2SAT 95
--- NOTE | 2018-10-18 13:18 | PCM.DS ---
Discharge Summary Date of Admission: 10/12/18 12:48 Admitting Physician: COURT BAUMAN Primary Care Provider: KATHIE HODGE Allergies Allergies No Known Drug Allergies Allergy (Verified 10/12/18 09:02) Hospital Summary - Hospital Course Hospital Course: Last Vital Signs Temp 98.5 F 10/18/18 12:00 Pulse 64 10/18/18 12:00 Resp 16 10/18/18 12:00 BP 165/69 10/18/18 12:00 Pulse Ox 95 10/18/18 12:00 Allergies No Known Drug Allergies Allergy (Verified 10/12/18 09:02) Active Medications Acetaminophen (Tylenol 325 Mg) 650 mg PO Q4H PRN PRN PRN Reason: PAIN AND/OR FEVER Stop: 11/11/18 14:14 Last Admin: 10/17/18 19:48 Dose: 650 mg Amlodipine Besylate (Norvasc 5 Mg) 2.5 mg PO DAILY [facility] Stop: 11/11/18 13:59 Last Admin: 10/18/18 09:37 Dose: 2.5 mg Aspirin (Ecotrin 81 Mg) 81 mg PO DAILY [facility] Stop: 11/11/18 13:59 Last Admin: 10/18/18 09:37 Dose: 81 mg Carvedilol (Coreg 6.25 Mg) 6.25 mg PO BID [facility] Stop: 11/11/18 13:59 Last Admin: 10/18/18 09:36 Dose: 6.25 mg Enoxaparin Sodium (Enoxaparin Sodium) 30 mg SQ DAILY [facility] Stop: 11/12/18 10:59 Last Admin: 10/18/18 09:36 Dose: 30 mg Fluoxetine HCl (Prozac 20 Mg) 20 mg PO DAILY [facility] Stop: 11/11/18 13:59 Last Admin: 10/18/18 09:37 Dose: 20 mg Gabapentin (Neurontin 300 Mg) 300 mg PO 0800,1800 [facility] Stop: 11/11/18 17:59 Last Admin: 10/18/18 07:40 Dose: 300 mg Gabapentin (Neurontin 300 Mg) 600 mg PO HS [facility] Stop: 11/11/18 21:59 Last Admin: 10/17/18 21:18 Dose: 600 mg Hydrochlorothiazide (Hydrodiuril 25 Mg) 12.5 mg PO DAILY [facility] Stop: 11/11/18 13:59 Last Admin: 10/18/18 09:38 Dose: 12.5 mg Levofloxacin/Dextrose (Levaquin 250mg/50ml D5w) 250 mg in 50 mls @ 50 mls/hr IV DAILY [facility] Stop: 11/13/18 09:59 Last Admin: 10/18/18 09:33 Dose: 50 mls/hr Insulin Aspart (Novolog Insulin) 0 unit SQ UD PRN PRN Reason: HYPERGLYCEMIA Stop: 11/11/18 13:01 Last Admin: 10/15/18 17:05 Dose: 2 unit Isosorbide Mononitrate (Imdur 30 Mg) 30 mg PO DAILY [facility] Stop: 11/11/18 13:59 Last Admin: 10/18/18 09:36 Dose: 30 mg Loperamide HCl (Imodium 2 Mg) 2 mg PO PRN PRN PRN Reason: DIARRHEA Stop: 11/13/18 16:31 Last Admin: 10/14/18 17:51 Dose: 2 mg Losartan Potassium (Cozaar 50 Mg) 50 mg PO DAILY [facility] Stop: 11/11/18 13:59 Last Admin: 10/18/18 09:36 Dose: 50 mg Simvastatin (Zocor 20mg) 20 mg PO HS [facility] Stop: 11/11/18 21:59 Last Admin: 10/17/18 21:17 Dose: 20 mg Sodium Chloride (Sodium Chloride 0.9% 10 Ml Flush Syringe) 10 ml IV Q8HT [facility] Stop: 11/17/18 13:59 Sodium Chloride (Sodium Chloride 0.9% 10 Ml Flush Syringe) 10 ml IV PRN PRN Stop: 11/17/18 06:29 Zolpidem Tartrate (Ambien 5 Mg Tablet) 5 mg PO HS [facility] Stop: 11/13/18 21:59 Last Admin: 10/17/18 21:18 Dose: 5 mg Intake & Output 10/18/18 10/19/18 11:59 11:59 Intake Total 880 Balance 880 Orders 10/17/18 14:05 RT Miscellaneous Order ROUTINE 10/17/18 14:12 PT Eval & Treat (MD Order) ROUTINE 10/17/18 14:13 OT Eval and Treat (MD Order) ROUTINE 10/18/18 06:30 NaCl 0.9% 10 ML FLUSH [Sodium Chloride 0.9% 10 ML FLUSH Syringe] 10 ml IV PRN PRN 10/18/18 14:00 NaCl 0.9% 10 ML FLUSH [Sodium Chloride 0.9% 10 ML FLUSH Syringe] 10 ml IV Q8HT Lab Tests 10/17/18 15:51 Potassium 3.5 - Vitals & Intake/Output Vital Signs: Vital Signs Temperature 98.5 F 10/18/18 12:00 Pulse Rate 64 10/18/18 12:00 Respiratory Rate 16 10/18/18 12:00 Blood Pressure 165/69 10/18/18 12:00 O2 Sat by Pulse Oximetry 95 10/18/18 12:00 Oxygen-Last Documented O2 Percentage 2 Liters = 28% Intake & Output: Intake & Output 10/16/18 10/17/18 10/18/18 10/19/18 11:59 11:59 11:59 11:59 Intake Total 5746 3741 880 Output Total 1050 Balance 4696 3741 880 - Lab Result Diagrams: 10/16/18 05:20 10/17/18 15:51 Lab Results-Last 24 Hrs: Accuchecks Date 10/18/18 Date 10/18/18 Date 10/17/18 Date 10/17/18 Time 11:30 Time 08:33 Time 22:00 Time 19:50 Accucheck Value: 143 Accucheck Value: 140 Accucheck Value: 141 Accucheck Value: 169 Lab Results-Last 24 Hours 10/17/18 Range/Units 15:51 Potassium 3.5 (3.5-5.1) mmol/L Micro Results-Entire Visit: Microbiology 10/12/18 11:15 Blood Culture Gram Stain - Final Blood Blood Culture - Final Escherichia Coli 10/12/18 11:10 Blood Culture Gram Stain - Final Blood Blood Culture - Final Escherichia Coli 10/12/18 10:19 Urine Culture - Final Clean Catch Midstream Escherichia Coli Accuchecks Date 10/18/18 Date 10/18/18 Date 10/17/18 Date 10/17/18 Time 11:30 Time 08:33 Time 22:00 Time 19:50 Accucheck Value: 143 Accucheck Value: 140 Accucheck Value: 141 Accucheck Value: 169 - Procedures and Test Procedures and Tests throughout Hospitalization: Therapy Orders & Screens 10/15/18 05:00 Oxygen NASAL CANNULA 2 lpm Comment: Diagnosis: UTI 10/15/18 05:01 Respiratory Therapy Assessment DAILY Comment: Diagnosis: UTI 10/17/18 14:05 RT Miscellaneous Order ROUTINE Comment: Physician Instructions: WEAN OXYGEN Reason For Exam: Diagnosis: UTI 10/17/18 14:12 PT Eval & Treat (MD Order) ROUTINE Reason for Eval:: WEAKNESS Diagnosis: UTI 10/17/18 14:13 OT Eval and Treat (MD Order) ROUTINE Comment: Consulting Provider: Physician Instructions: Reason For Exam: Diagnosis: UTI Discharge Exam General Appearance: no apparent distress, alert Neurologic Exam: alert, oriented x 3, cooperative, normal mood/affect, nml cerebellar function, sensation nml, No motor deficits Skin Exam: normal color, warm, dry Eye Exam: PERRL, EOMI, eyes nml inspection Ears, Nose, Throat Exam: normal ENT inspection, pharynx normal, moist mucous membranes Neck Exam: normal inspection, non-tender, supple, full range of motion Respiratory Exam: normal breath sounds, lungs clear, No respiratory distress Cardiovascular Exam: regular rate/rhythm, normal heart sounds Gastrointestinal/Abdomen Exam: soft, No tenderness, No mass Extremity Exam: normal inspection, normal range of motion Back Exam: normal inspection, normal range of motion, No CVA tenderness, No vertebral tenderness Pelvic Exam: deferred Rectal Exam: deferred Final Diagnosis/Problem List - Final Discharge Diagnosis/Problem (1) Sepsis due to coliform organism Current Visit: Yes Status: Resolved Code(s): A41.59 - OTHER GRAM-NEGATIVE SEPSIS (2) UTI (urinary tract infection) Current Visit: Yes Status: Resolved Code(s): N39.0 - URINARY TRACT INFECTION , SITE NOT SPECIFIED (3) Diabetes mellitus Current Visit: Yes Status: Chronic Code(s): E11.9 - TYPE 2 DIABETES MELLITUS WITHOUT COMPLICATIONS (4) HTN (hypertension) Current Visit: Yes Status: Chronic Code(s): I10 - ESSENTIAL (PRIMARY) HYPERTENSION (5) Hypoxia Current Visit: Yes Status: Acute Assessment & Plan: will require 2 liter O2 NC Code(s): R09.02 - HYPOXEMIA - Discharge Discharge Date: 10/18/18 Disposition: Home, Self-Care Condition: Stable Prescriptions: New Levofloxacin [Levaquin] 500 mg PO DAILY #5 tablet Continue Folic Acid 2 tab PO DAILY Glipizide/Metformin HCl [Glipizide-Metformin 2.5-500 mg] 1 each PO DAILY Fluoxetine HCl 20 mg [Prozac 20 MG] 20 mg PO DAILY Amlodipine Besylate [Norvasc] 2.5 mg PO DAILY Atorvastatin Calcium [Lipitor 20MG Tablet] 20 mg PO HS [facility]-3 Fatty Acids/Fish Oil [Fish Oil 1,000 mg Capsule] 1,000 mg PO DAILY Lysine HCl [l-Lysine] 500 mg PO DAILY Hydroxychloroquine Sulfate [Plaquenil] 200 mg PO DAILY Carvedilol 6.25 mg [Coreg 6.25 MG] 6.25 mg PO BID Isosorbide Mononitrate 30 mg [Imdur 30 MG] 30 mg PO DAILY Aspirin EC 81 mg [Ecotrin 81 mg] 81 mg PO DAILY Losartan/Hydrochlorothiazide [Losartan-Hctz 50-12.5 mg Tab] 1 each PO DAILY Golimumab [Simponi Aria] 50 mg IV CLARIFY Gabapentin [Neurontin] 300 mg PO UD Methotrexate Sodium [Methotrexate] 7 tab PO WEEKLY Gabapentin 600 mg PO HS Nitrofurantoin Monohyd/M-Cryst [Nitrofurantoin [place]-Mcr 100 mg] 100 mg PO BID Follow up with: KATHIE HODGE MD [Primary Care Provider] - 1 Week
[2018-10-18] MEDS ORDERED: Sodium Chloride 0.9% 10 ML FLUSH Syringe IV SCH (14:00)
== END 2018-10-18 15:10 | disposition home or self-care (01) | DRG 872 ==
LOC: ED 08:31 → MED SURG 12:48
PROVIDERS: ADMIT Family Medicine; ATTEND General Practice
DX: A41.89 Other specified sepsis (principal); N39.0 Urinary tract infection, site not specified; R17 Unspecified jaundice; E11.9 Type 2 diabetes mellitus without complications; M35.00 Sjogren syndrome, unspecified; I10 Essential (primary) hypertension; R09.02 Hypoxemia; Z79.899 Other long term (current) drug therapy; M06.9 Rheumatoid arthritis, unspecified; N28.9 Disorder of kidney and ureter, unspecified; W19.XXXA Unspecified fall, initial encounter; Z79.01 Long term (current) use of anticoagulants
CPT/HCPCS: 36000; 36415; 71045; 71260; 80048; 80053; 81001; 82150; 82962; 83036; 83605; 83690; 84132; 85025; 85027; 85379; 87040; 87077; 87086; 87186; 87493; 94760; 94762; 96365; 99285; J0696; J1650; J1940; J1956; J3480; A9270-GY

== ENCOUNTER 2019-05-26 14:15 | Observation (INO) | payer MEDICARE ==
[2019-05-26] MEDS ORDERED: Sodium Chloride 0.9% 1000 ML 1,000 ML IV STA (17:01)
[2019-05-26] MEDS ORDERED: PREDNISONE 5 MG PO PRN (17:03)
[2019-05-26] MEDS ORDERED: DELTASONE 5 MG PO PRN (17:18)
[2019-05-26 17:27] LABS: Absolute Neutrophil Ct (ANC) 1.92 (1.4-6.9); BASOPHIL % 0.9 % (0.0-0.4); Basophil (Absolute #) 0.04 (0-0.4); Eosinophil % 1.5 % (0.00-5.0); Eosinophil (Absolute #) 0.07 (0-0.5); Hematocrit 39.4 % (35-47); Hemoglobin 12.7 gm/dl (12.0-16.0); Lymphocyte (Absolute #) 1.86 (1.0-4.6); Mean Cell Volume 91.2 fl (78-100); Mean Corpuscular Hemoglobin 29.4 pg (26-32); Mean Corpuscular Hgb Concent. 32.2 g/dl (32-36); Mean Platelet Volume 9.3 fl (6-9.5); Monocyte (Absolute #) 0.76 (0.0-1.3); Monocytes % 16.3 % (0.0-12.0); Neutrophil % 41.3 % (36.0-66.0); Platelet Count 195 K/mm3 (150-450); Red Blood Count 4.32 M/mm3 (4.1-5.4); Red Cell Distribution Width 14.7 % (11.5-14.0); White Blood Count 4.7 K/mm3 (4.0-10.5)
[2019-05-26 17:28] LABS: Appearance CLOUDY (CLEAR); Bacteria MODERATE /HPF (NEGATIVE); Bilirubin NEGATIVE (NEGATIVE); Blood MODERATE Ery/ul (0-5); Epithelial Cells RARE /HPF (FEW); Glucose NEGATIVE (NEGATIVE); Ketones TRACE (NEGATIVE); Leukocyte Esterase LARGE (NEGATIVE); Mucus SLIGHT /HPF (NEGATIVE); Nitrite NEGATIVE (NEGATIVE); Protein,Urine Dip 100 (Negative); Specific Gravity 1.028 (1.005-1.025); Urobilinogen NEGATIVE mg/dL (0-1); WBC >100 /HPF (0-5)
[2019-05-26 17:30] LABS: ANION GAP 13.4 MEQ/L (5-15); Calcium 9.7 mg/dL (8.4-10.2); Creatinine 1 1.5 mg/dL (0.52-1.04); Potassium 3.9 mmol/L (3.5-5.1)
[2019-05-26] MEDS ORDERED: MEDICATION INTERVENTION PO SCH ×3 (17:30)
[2019-05-26 17:44] LABS: RBC >101 /HPF (0-2)
[2019-05-26] MEDS: NORVASC 5 MG PO SCH (18:00)
[2019-05-26] MEDS ORDERED: BACTRIM DS TABLET PO SCH (18:00)
[2019-05-26] MEDS: hydroDIURIL 25 MG PO SCH (18:01)
[2019-05-26] MEDS: Imdur 30 MG PO SCH (18:01)
[2019-05-26] MEDS: Cozaar 50 MG PO SCH (18:02)
[2019-05-26] MEDS: Prozac 20 MG PO SCH (18:02)
[2019-05-26] MEDS: FOLATE 1 MG PO SCH (18:02)
[2019-05-26] MEDS: Sodium Chloride 0.9% 1000 ML 1,000 ML IV SCH (18:03)
[2019-05-26] MEDS: NEURONTIN 300 MG PO SCH ×2 (18:03→22:15)
[2019-05-26] MEDS ORDERED: Zofran 4 MG/2 ML VIAL IV PRN (19:31)
[2019-05-26] MEDS ORDERED: Levofloxacin 500MG/100ML D5W 500 MG/100 ML BAG IV SCH (20:00)
[2019-05-26] MEDS ORDERED: NON-FORMULARY ITEM (Atorvastatin Calcium 10 MG) PO SCH (22:00)
[2019-05-26] MEDS: Coreg 6.25 MG PO SCH (22:16)
[2019-05-26] MEDS: Zocor 10MG PO SCH (22:16)
[2019-05-27] MEDS: Sodium Chloride 0.9% 1000 ML 1,000 ML IV SCH ×3 (03:35→22:55)
[2019-05-27] MEDS: Glucophage 500 MG PO SCH ×2 (07:55→07:58)
[2019-05-27] MEDS: Glucotrol 5 MG PO SCH (07:55)
--- NOTE | 2019-05-27 09:03 | PCM.NOTE ---
Date and Time: 05/27/19901 Subjective Assessment: doing better - Review of Systems Constitutional: No Fever, No Chills Eyes: No Symptoms Ears, Nose, & Throat: No Symptoms Respiratory: No Cough, No Short Of Breath Cardiac: No Chest Pain, No Edema, No Syncope Abdominal/Gastrointestinal: No Abdominal Pain, No Nausea, No Vomiting, No Diarrhea Genitourinary Symptoms: No Dysuria Musculoskeletal: No Back Pain, No Neck Pain Skin: No Rash Neurological: No Dizziness, No Focal Weakness, No Sensory Changes Psychological: No Symptoms Endocrine: No Symptoms Hematologic/Lymphatic: No Symptoms Immunological/Allergic: No Symptoms Objective Exam General Appearance: no apparent distress, alert Neurologic Exam: alert, oriented x 3, cooperative, normal mood/affect, nml cerebellar function, sensation nml, No motor deficits Skin Exam: normal color, warm, dry Eye Exam: PERRL, EOMI, eyes nml inspection Ears, Nose, Throat Exam: normal ENT inspection, pharynx normal, moist mucous membranes Neck Exam: normal inspection, non-tender, supple, full range of motion Respiratory Exam: normal breath sounds, lungs clear, No respiratory distress Cardiovascular Exam: regular rate/rhythm, normal heart sounds Gastrointestinal/Abdomen Exam: soft, No tenderness, No mass Extremity Exam: normal inspection, normal range of motion Back Exam: normal inspection, normal range of motion, No CVA tenderness, No vertebral tenderness Pelvic Exam: deferred Rectal Exam: deferred OBJECTIVE DATA Vital Signs: Vital Signs - 24 hr Temp Pulse Resp BP Pulse Ox 05/27/19 07:54 97.8 F 63 16 188/77 97 05/27/19 04:00 98.1 F 70 20 187/77 94 L 05/27/19 00:00 98.1 F 63 18 138/65 94 L 05/26/19 20:00 98.7 F 67 18 138/65 96 05/26/19 16:00 97.3 F 90 19178 96 05/26/19 15:24 97.3 F 90 78 96 05/26/19 15:09 97.3 F 90 96 Pain Assessment - Last Documented Pain Intensity 0 Pain Scale Used 0-10 Pain Scale Intake and Output: Intake & Output 05/24/19 05/25/19 05/26/19 05/27/19 11:59 11:59 11:59 11:59 Intake Total 2311 Output Total 200 Balance 2111 Weight 68.1 kg Lab Results: Accuchecks Date 05/27/19 Time 07:54 Accucheck Value: 97 Lab Results-Last 24 Hours 05/26/19 05/26/19 05/26/19 Range/Units 15:30 15:30 15:30 WBC 4.7 (4.0-10.5) K/mm3 RBC 4.32 (4.1-5.4) M/mm3 Hgb 12.7 (12.0-16.0) gm/dl Hct 39.4 (35-47) % MCV 91.2 (78-100) fl MCH 29.4 (26-32) pg MCHC 32.2 (32-36) g/dl RDW 14.7 H (11.5-14.0) % Plt Count 195 (150-450) K/mm3 MPV 9.3 (6-9.5) fl Gran % 41.3 (36.0-66.0) % Eos # (Auto) 0.07 (0-0.5) Absolute Lymphs (auto) 1.86 (1.0-4.6) Absolute Monos (auto) 0.76 (0.0-1.3) Lymphocytes % 40.0 (24.0-44.0) % Monocytes % 16.3 H (0.0-12.0) % Eosinophils % 1.5 (0.00-5.0) % Basophils % 0.9 (0.0-0.4) % Absolute Granulocytes 1.92 (1.4-6.9) Basophils # 0.04 (0-0.4) Sodium 140 (137-145) mmol/L Potassium 3.9 (3.5-5.1) mmol/L Chloride 108 H (98-107) mmol/L Carbon Dioxide 23 (22-30) mmol/L Anion Gap 13.4 (5-15) MEQ/L BUN 22 H (7-17) mg/dL Creatinine 1.50 H (0.52-1.04) mg/dL Estimated GFR 35.9 ML/MIN Glucose 98 (74-106) mg/dL Hemoglobin A1c 5.05 (4.5-6.0) % Calcium 9.7 (8.4-10.2) mg/dL Urine Color (YELLOW) Urine Appearance (CLEAR) Urine pH (5-6) Ur Specific [place] (1.005-1.025) Urine Protein (Negative) Urine Ketones (NEGATIVE) Urine Blood (0-5) Jack/ul Urine Nitrite (NEGATIVE) Urine Bilirubin (NEGATIVE) Urine Urobilinogen (0-1) mg/dL Ur Leukocyte Esterase (NEGATIVE) Urine WBC (Auto) (0-5) /HPF Urine RBC (Auto) (0-2) /HPF U Epithel Cells (Auto) (FEW) /HPF Urine Bacteria (Auto) (NEGATIVE) /HPF Urine Mucus (Auto) (NEGATIVE) /HPF Urine Culture Reflexed (NO) Urine Glucose (NEGATIVE) mg/dL 05/26/19 Range/Units 17:01 WBC (4.0-10.5) K/mm3 RBC (4.1-5.4) M/mm3 Hgb (12.0-16.0) gm/dl Hct (35-47) % MCV (78-100) fl MCH (26-32) pg MCHC (32-36) g/dl RDW (11.5-14.0) % Plt Count (150-450) K/mm3 MPV (6-9.5) fl Gran % (36.0-66.0) % Eos # (Auto) (0-0.5) Absolute Lymphs (auto) (1.0-4.6) Absolute Monos (auto) (0.0-1.3) Lymphocytes % (24.0-44.0) % Monocytes % (0.0-12.0) % Eosinophils % (0.00-5.0) % Basophils % (0.0-0.4) % Absolute Granulocytes (1.4-6.9) Basophils # (0-0.4) Sodium (137-145) mmol/L Potassium (3.5-5.1) mmol/L Chloride (98-107) mmol/L Carbon Dioxide (22-30) mmol/L Anion Gap (5-15) MEQ/L BUN (7-17) mg/dL Creatinine (0.52-1.04) mg/dL Estimated GFR ML/MIN Glucose (74-106) mg/dL Hemoglobin A1c (4.5-6.0) % Calcium (8.4-10.2) mg/dL Urine Color RAFA (YELLOW) Urine Appearance CLOUDY (CLEAR) Urine pH 5.0 (5-6) Ur Specific [place] 1.028 (1.005-1.025) Urine Protein 100 (Negative) Urine Ketones TRACE (NEGATIVE) Urine Blood MODERATE (0-5) Jack/ul Urine Nitrite NEGATIVE (NEGATIVE) Urine Bilirubin NEGATIVE (NEGATIVE) Urine Urobilinogen NEGATIVE (0-1) mg/dL Ur Leukocyte Esterase LARGE (NEGATIVE) Urine WBC (Auto) >100 (0-5) /HPF Urine RBC (Auto) >101 (0-2) /HPF U Epithel Cells (Auto) RARE (FEW) /HPF Urine Bacteria (Auto) MODERATE (NEGATIVE) /HPF Urine Mucus (Auto) SLIGHT (NEGATIVE) /HPF Urine Culture Reflexed YES (NO) Urine Glucose NEGATIVE (NEGATIVE) mg/dL Radiology Exams: Radiology Procedures Category Date Time Status CHEST 2 VIEWS (PA AND LAT) Urgent Exams 05/26/19 17:51 Taken Assessment/Plan (1) Pyelonephritis due to Escherichia coli Current Visit: Yes Status: Acute Assessment & Plan: Chief Complaint Diagnosis Dehydration Allergies Allergy/AdvReac Type Severity Reaction Status Date / Time No Known Drug Allergies Allergy Verified 10/12/18 09:02 Vital Signs (Last 24 hours) Temp Pulse Resp BP Pulse Ox 05/27/19 07:54 97.8 F 63 16 188/77 97 05/27/19 04:00 98.1 F 70 20 187/77 94 L 05/27/19 00:00 98.1 F 63 18 138/65 94 L 05/26/19 20:00 98.7 F 67 18 138/65 96 05/26/19 16:00 97.3 F 90 18 191/78 96 05/26/19 15:24 97.3 F 90 18 191/78 96 05/26/19 15:09 97.3 F 90 20 191/78 96 Home Medications Medication Instructions Recorded Confirmed Last Taken Type Leflunomide 20 mg PO DAILY 05/26/19 05/26/19 05/25/19 History Mirabegron [Myrbetriq] 25 mg PO DAILY 05/26/19 05/26/19 05/25/19 History Sulfamethoxazole/Trimethoprim 2 tab PO 3XW 05/26/19 05/26/19 05/23/19 History [Bactrim Ds Tablet] predniSONE [Prednisone] 5 mg PO DAILY PRN PRN 05/26/19 05/26/19 Unknown History Current Medications Generic Name Dose Route Start Last Admin Trade Name Anuj PRN Reason Stop Dose Admin Amlodipine Besylate 2.5 mg 05/26/19 18:00 05/26/19 18:00 Norvasc 5 Mg PO 06/25/19 17:59 2.5 mg DAILY HARMAN Administration Aspirin 81 mg 05/27/19 10:00 Ecotrin 81 Mg PO 06/26/19 09:59 DAILY HARMAN Carvedilol 6.25 mg 05/26/19 22:00 05/26/19 22:16 Coreg 6.25 Mg PO 06/25/19 21:59 6.25 mg BID HARMAN Administration Fluoxetine HCl 20 mg 05/26/19 18:00 05/26/19 18:02 Prozac 20 Mg PO 06/25/19 17:59 20 mg DAILY HARMAN Administration Folic Acid 1 mg 05/26/19 18:00 05/26/19 18:02 Folate 1 Mg PO 06/25/19 17:59 1 mg DAILY HARMAN Administration Gabapentin 300 mg 05/26/19 17:00 05/26/19 22:15 Neurontin 300 Mg PO 06/25/19 16:59 300 mg QID HARMAN Administration Glipizide 2.5 mg 05/27/19 08:00 05/27/19 07:55 Glucotrol 5 Mg PO 06/26/19 07:59 2.5 mg BREAKFAST HARMAN Administration Hydrochlorothiazide 12.5 mg 05/26/19 18:00 05/26/19 18:01 Hydrodiuril 25 Mg PO 06/25/19 17:59 12.5 mg DAILY HARMAN Administration Sodium Chloride 1,000 mls @ 100 mls/hr 05/26/19 18:00 05/27/19 03:35 Sodium Chloride 0.9% 1000 Ml IV 06/25/19 17:59 100 mls/hr .Q10H HARMAN Administration Levofloxacin/Dextrose 250 mg in 50 mls @ 50 mls/hr 05/27/19 20:00 Levaquin 250mg/50ml D5w IV 06/26/19 19:59 Q24H HARMAN Isosorbide Mononitrate 30 mg 05/26/19 18:00 05/26/19 18:01 Imdur 30 Mg PO 06/25/19 17:59 30 mg DAILY HARMAN Administration Losartan Potassium 50 mg 05/26/19 18:00 05/26/19 18:02 Cozaar 50 Mg PO 06/25/19 17:59 50 mg DAILY HARMAN Administration Metformin HCl 500 mg 05/27/19 08:00 05/27/19 07:58 Glucophage 500 Mg PO 06/26/19 07:59 Not Given BREAKFAST HAMRAN Miscellaneous Information 1 each 05/26/19 17:30 Medication Intervention PO 06/25/19 17:29 .RN TO CHECK ON HARMAN Miscellaneous Information 1 each 05/26/19 17:30 Medication Intervention PO 06/25/19 17:29 .RN TO CHECK ON HARMAN Miscellaneous Information 1 each 05/26/19 17:30 Medication Intervention PO 06/25/19 17:29 .RN TO CHECK ON HARMAN Ondansetron HCl 4 mg 05/26/19 19:31 05/26/19 20:06 Zofran 4 Mg/2 Ml Vial IV 06/25/19 19:30 4 mg Q6H PRN PRN Administration NAUSEA/VOMITING Prednisone 5 mg 05/26/19 17:18 Deltasone 5 Mg PO 06/25/19 17:17 DAILY PRN PRN PAIN Simvastatin 10 mg 05/26/19 22:00 05/26/19 22:16 Zocor 10mg PO 06/25/19 21:59 10 mg HS HARMAN Administration Trimethoprim/Sulfamethoxazole 2 tab 05/26/19 18:00 05/26/19 17:59 Bactrim Ds Tablet PO 06/25/19 17:59 2 tab MoWeFr HARMAN Administration Discontinued Medications Generic Name Dose Route Start Last Admin Trade Name Freq PRN Reason Stop Dose Admin Sodium Chloride 1,000 mls @ 999 mls/hr 05/26/19 17:01 05/26/19 17:14 Sodium Chloride 0.9% 1000 Ml IV 05/26/19 18:01 999 mls/hr .Q1H1M STA Administration Levofloxacin/Dextrose 500 mg in 100 mls @ 100 mls/hr 05/26/19 20:00 05/26/19 20:06 Levofloxacin 500mg/100ml D5w IV 06/25/19 19:59 100 mls/hr DAILY HARMAN Administration Intake & Output (Last 24 hours) 05/24/19 05/25/19 05/26/19 05/27/19 11:59 11:59 11:59 11:59 Intake Total 2311 Output Total 200 Balance 2111 Weight 68.1 kg Microbiology Results (Last 24 hours) 05/26/19 17:01 Urine, Void Urine Culture - Pending Laboratory Results (Last 24 hours) 05/26/19 05/26/19 05/26/19 17:01 15:30 15:30 WBC RBC Hgb Hct MCV MCH MCHC RDW Plt Count MPV Gran % Eos # (Auto) Absolute Lymphs (auto) Absolute Monos (auto) Lymphocytes % Monocytes % Eosinophils % Basophils % Absolute Granulocytes Basophils # Sodium 140 Potassium 3.9 Chloride 108 H Carbon Dioxide 23 Anion Gap 13.4 BUN 22 H Creatinine 1.50 H Estimated GFR 35.9 Glucose 98 Hemoglobin A1c 5.05 Calcium 9.7 Urine Color RAFA Urine Appearance CLOUDY Urine pH 5.0 Ur Specific [place] 1.028 Urine Protein 100 Urine Ketones TRACE Urine Blood MODERATE Urine Nitrite NEGATIVE Urine Bilirubin NEGATIVE Urine Urobilinogen NEGATIVE Ur Leukocyte Esterase LARGE Urine WBC (Auto) >100 Urine RBC (Auto) >101 U Epithel Cells (Auto) RARE Urine Bacteria (Auto) MODERATE Urine Mucus (Auto) SLIGHT Urine Culture Reflexed YES Urine Glucose NEGATIVE 05/26/19 15:30 WBC 4.7 RBC 4.32 Hgb 12.7 Hct 39.4 MCV 91.2 MCH 29.4 MCHC 32.2 RDW 14.7 H Plt Count 195 MPV 9.3 Gran % 41.3 Eos # (Auto) 0.07 Absolute Lymphs (auto) 1.86 Absolute Monos (auto) 0.76 Lymphocytes % 40.0 Monocytes % 16.3 H Eosinophils % 1.5 Basophils % 0.9 Absolute Granulocytes 1.92 Basophils # 0.04 Sodium Potassium Chloride Carbon Dioxide Anion Gap BUN Creatinine Estimated GFR Glucose Hemoglobin A1c Calcium Urine Color Urine Appearance Urine pH Ur Specific [place] Urine Protein Urine Ketones Urine Blood Urine Nitrite Urine Bilirubin Urine Urobilinogen Ur Leukocyte Esterase Urine WBC (Auto) Urine RBC (Auto) U Epithel Cells (Auto) Urine Bacteria (Auto) Urine Mucus (Auto) Urine Culture Reflexed Urine Glucose Orders (Last 24 hours) Category Date Time Status Activity as Tolerated TOLERATED Activity 05/26/19 16:56 Active ACCUCHECK [Accucheck] QAM Care 05/26/19 16:59 Active Observation [Place in Observation] ROUTINE Care 05/26/19 14:56 Active Regular Diet Diet 05/26/19 Dinner Active CHEST 2 VIEWS (PA AND LAT) Urgent Exams 05/26/19 17:51 Taken BMP Urgent Lab 05/26/19 15:30 Completed CBC AM.LAB Lab 05/28/19 04:00 Ordered CBC W DIFF Urgent Lab 05/26/19 15:30 Completed CMP AM.LAB Lab 05/28/19 04:00 Ordered CULTURE,URINE Urgent Lab 05/26/19 17:01 Received HEMOGLOBIN A1C Urgent Lab 05/26/19 15:30 Completed UA W/RFX UR CULTURE Routine Lab 05/28/19 06:00 Uncollected UA W/RFX UR CULTURE Urgent Lab 05/26/19 17:01 Completed Amlodipine Besylate 5 mg [Norvasc 5 mg] Med 05/26/19 18:00 Active 2.5 mg PO DAILY Aspirin EC 81 mg [Ecotrin 81 mg] Med 05/27/19 10:00 Active 81 mg PO DAILY Carvedilol 6.25 mg [Coreg 6.25 MG] Med 05/26/19 22:00 Active 6.25 mg PO BID Fluoxetine HCl 20 mg [Prozac 20 MG] Med 05/26/19 18:00 Active 20 mg PO DAILY Folic Acid 1 mg [Folate 1 mg] Med 05/26/19 18:00 Active 1 mg PO DAILY Gabapentin 300 mg [Neurontin 300 mg] Med 05/26/19 17:00 Active 300 mg PO QID Glipizide 5 mg [Glucotrol 5 MG] Med 05/27/19 08:00 Active 2.5 mg PO BREAKFAST Hydrochlorothiazide 25 mg [hydroDIURIL 25 MG] Med 05/26/19 18:00 Active 12.5 mg PO DAILY Isosorbide Mononitrate 30 mg [Imdur 30 MG] Med 05/26/19 18:00 Active 30 mg PO DAILY Levofloxacin [Levaquin 250MG/50ML D5W] Med 05/27/19 20:00 Active 250 mg in 50 ml IV Q24H Levofloxacin [Levofloxacin 500MG/100ML D5W] Med 05/26/19 20:00 Discontinued 500 mg in 100 ml IV DAILY Losartan Potassium 50 mg [Cozaar 50 MG] Med 05/26/19 18:00 Active 50 mg PO DAILY Medication Intervention Med 05/26/19 17:30 Active 1 each PO .RN TO CHECK ON Medication Intervention Med 05/26/19 17:30 Active 1 each PO .RN TO CHECK ON Medication Intervention Med 05/26/19 17:30 Active 1 each PO .RN TO CHECK ON Metformin HCl 500 mg [Glucophage 500 MG] Med 05/27/19 08:00 Active 500 mg PO BREAKFAST NaCl 0.9% 1000 ml [Sodium Chloride 0.9% 1000 ML] 1,000 Med 05/26/19 18:00 Active ml IV 100 mls/hr NaCl 0.9% 1000 ml [Sodium Chloride 0.9% 1000 ML] 1,000 Med 05/26/19 17:01 Discontinued ml IV 999 mls/hr Ondansetron HCl 4 mg/2 ml [Zofran 4 MG/2 ML VIAL] Med 05/26/19 19:31 Active 4 mg IV Q6H PRN PRN Prednisone 5 mg [Deltasone 5 mg] Med 05/26/19 17:18 Active 5 mg PO DAILY PRN PRN Simvastatin 10 mg [Zocor 10MG] Med 05/26/19 22:00 Active 10 mg PO HS Smz/Tmp Ds Tablet [Bactrim Ds Tablet] Med 05/26/19 18:00 Active 2 tab PO MoWeFr Patient Care Notes (Last 24 hours) 05/26/19 19:35 Nursing Note by Margaux Miller called Dr. Hoskins with UA and lab results. New orders entered Initialized on 05/26/19 19:35 - END OF NOTE Code(s): N12 - TUBULO-INTERSTITIAL NEPHRITIS, NOT SPCF ACUTE OR CHRONIC; B96.20 - UNSP ESCHERICHIA COLI THE CAUSE OF DISEASES CLASSD ELSR
[2019-05-27] MEDS: FOLATE 1 MG PO SCH (09:14)
[2019-05-27] MEDS: ECOTRIN 81 MG PO SCH (09:14)
[2019-05-27] MEDS: Imdur 30 MG PO SCH (09:14)
[2019-05-27] MEDS: hydroDIURIL 25 MG PO SCH (09:15)
[2019-05-27] MEDS: Cozaar 50 MG PO SCH (09:15)
[2019-05-27] MEDS: Coreg 6.25 MG PO SCH ×2 (09:16→21:42)
[2019-05-27] MEDS: NEURONTIN 300 MG PO SCH ×4 (09:17→21:42)
[2019-05-27] MEDS: NORVASC 5 MG PO SCH (09:17)
[2019-05-27] MEDS: Prozac 20 MG PO SCH (09:18)
[2019-05-27] MEDS ORDERED: FOLIC ACID PO SCH (10:00)
[2019-05-27] MEDS ORDERED: HYDROXYCHLOROQUINE SULFATE 400 MG PO SCH (10:00)
[2019-05-27] MEDS ORDERED: METFORMIN HCL PO SCH (10:00)
[2019-05-27] MEDS ORDERED: GLIPIZIDE PO SCH (10:00)
[2019-05-27] MEDS ORDERED: NON-FORMULARY ITEM (Mirabegron [Myrbetriq] 25 MG) PO SCH (10:00)
[2019-05-27] MEDS ORDERED: NON-FORMULARY ITEM (Amlodipine Besylate [Norvasc] 2.5 MG) PO SCH (10:00)
[2019-05-27] MEDS ORDERED: NON-FORMULARY ITEM (Losartan/Hydrochlorothiazide [Losartan-Hctz 50-12.5 Mg Tab] 1 EACH) PO SCH (10:00)
[2019-05-27] MEDS ORDERED: LEFLUNOMIDE 20 MG PO SCH (10:00)
[2019-05-27] MEDS ORDERED: Levaquin 250MG/50ML D5W 250 MG/50 ML BAG IV SCH (20:00)
[2019-05-27] MEDS: Zocor 10MG PO SCH (21:42)
[2019-05-28 04:44] VITALS: PULSE 60
[2019-05-28 04:53] LABS: Hematocrit 31.7 % (35-47); Mean Cell Volume 92.2 fl (78-100); Mean Corpuscular Hemoglobin 29.4 pg (26-32); Mean Corpuscular Hgb Concent. 31.9 g/dl (32-36); Mean Platelet Volume 8.5 fl (6-9.5); Platelet Count 107 K/mm3 (150-450); Red Blood Count 3.44 M/mm3 (4.1-5.4); Red Cell Distribution Width 14.5 % (11.5-14.0); White Blood Count 2.6 K/mm3 (4.0-10.5)
[2019-05-28 04:59] LABS: Hemoglobin 10.1 gm/dl (12.0-16.0)
[2019-05-28 05:05] LABS: ALBUMIN 2.7 g/dL (3.5-5.0); ANION GAP 7.9 MEQ/L (5-15); BILIRUBIN,TOTAL 0.5 mg/dL (0.2-1.3); Creatinine 1 1.14 mg/dL (0.52-1.04); Potassium 3.7 mmol/L (3.5-5.1); Total Protein 5.6 g/dL (6.3-8.2)
--- NOTE | 2019-05-28 07:56 | XRAY ---
Exam: Two-view chest from 10/16/2018. Comparison: AP portable chest film from 10/16/[address] of the chest with IV contrast from 10/16/2018. Also, two-view chest from 08/02/2016. Indication: Cough. Findings: Upright PA and lateral chest films were obtained. The heart size is normal. A triangular low-density opacity is seen overlying the right cardiophrenic angle which is unchanged from 08/02/2016 and is believed represented a prominent epicardial fat pad. The remainder of the renan and mediastinal structures appears unremarkable. There is average inflation of the lungs. No air space infiltrates, vascular congestion, pneumothorax, or pleural fluid is seen. No acute osseous process is seen. A 1.8 cm in diameter oval calcification with adjacent vascular calcification is seen within the left upper quadrant of the abdomen. 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 A couple surgical clips are seen within the right upper quadrant. Impression: 1. No acute infiltrates, heart failure, or other active cardiopulmonary disease is seen. 2. Incidental note of a prominent epicardial fat pad at the right cardiophrenic angle. This is similar to a prior two-view chest series from 08/02/2016.
[2019-05-28 08:24] VITALS: BP 187/79; O2SAT 96
[2019-05-28 08:33] LABS: Appearance CLEAR (CLEAR); Bacteria RARE /HPF (NEGATIVE); Bilirubin NEGATIVE (NEGATIVE); Blood NEGATIVE Ery/ul (0-5); Epithelial Cells RARE /HPF (FEW); Glucose NEGATIVE (NEGATIVE); Ketones NEGATIVE (NEGATIVE); Leukocyte Esterase NEGATIVE (NEGATIVE); Mucus SLIGHT /HPF (NEGATIVE); Nitrite NEGATIVE (NEGATIVE); Protein,Urine Dip NEGATIVE (Negative); Specific Gravity 1.006 (1.005-1.025); Urobilinogen NEGATIVE mg/dL (0-1)
[2019-05-28] MEDS: ECOTRIN 81 MG PO SCH (10:41)
[2019-05-28] MEDS: Coreg 6.25 MG PO SCH (10:41)
[2019-05-28] MEDS: Glucotrol 5 MG PO SCH (10:41)
[2019-05-28] MEDS: Cozaar 50 MG PO SCH (10:41)
[2019-05-28] MEDS: Glucophage 500 MG PO SCH (10:41)
[2019-05-28] MEDS: FOLATE 1 MG PO SCH (10:41)
[2019-05-28] MEDS: NEURONTIN 300 MG PO SCH (10:42)
[2019-05-28] MEDS: NORVASC 5 MG PO SCH (10:42)
[2019-05-28] MEDS: hydroDIURIL 25 MG PO SCH (10:42)
[2019-05-28] MEDS: Imdur 30 MG PO SCH (10:42)
[2019-05-28] MEDS: Prozac 20 MG PO SCH (10:42)
== END 2019-05-28 10:30 | disposition home or self-care (01) ==
LOC: MED SURG 14:56
PROVIDERS: ADMIT General Practice; ATTEND General Practice
DX: E86.0 Dehydration (principal); N12 Tubulo-interstitial nephritis, not specified as acute or chronic; B96.20 Unspecified Escherichia coli [E. coli] as the cause of diseases classified elsewhere; I10 Essential (primary) hypertension; E11.65 Type 2 diabetes mellitus with hyperglycemia; Z79.899 Other long term (current) drug therapy
CPT/HCPCS: 36415; 71046; 80048; 80053; 81001; 82962; 83036; 85025; 85027; 87077; 87086; 87186; G0378; J1956; J2405; A9270-GY

== ENCOUNTER 2019-09-19 18:35 | Emergency (ER) | payer MEDICARE ==
[2019-09-19] MEDS ORDERED: Reglan 10 MG/2 ML IV ONE (19:18)
[2019-09-19] MEDS ORDERED: Sodium Chloride 0.9% 1000 ML 1,000 ML IV STA (19:18)
[2019-09-19] MEDS ORDERED: Zofran 4 MG/2 ML VIAL IV ONE (19:18)
[2019-09-19 19:26] VITALS: PULSE 76
[2019-09-19] MEDS ORDERED: Reglan 10 MG/2 ML ONE ×3 (19:36→19:48)
[2019-09-19] MEDS ORDERED: Zofran 4 MG/2 ML VIAL ONE ×3 (19:36→19:47)
[2019-09-19] MEDS ORDERED: Sodium Chloride 0.9% 1000 ML 0 ML ONE ×2 (19:36→19:38)
[2019-09-19] MEDS ORDERED: Sodium Chloride 0.9% 1000 ML 1,000 ML ONE (19:48)
[2019-09-19 20:07] LABS: Absolute Neutrophil Ct (ANC) 3.89 (1.4-6.9); BASOPHIL % 0.7 % (0.0-0.4); Basophil (Absolute #) 0.05 (0-0.4); Eosinophil (Absolute #) 0.07 (0-0.5); Hematocrit 37.2 % (35-47); Hemoglobin 12.4 gm/dl (12.0-16.0); Lymphocyte (Absolute #) 2.05 (1.0-4.6); Lymphocytes % 29.5 % (24.0-44.0); Mean Cell Volume 92.1 fl (78-100); Mean Corpuscular Hemoglobin 30.7 pg (26-32); Mean Corpuscular Hgb Concent. 33.3 g/dl (32-36); Mean Platelet Volume 9.6 fl (7.5-11.0); Monocytes % 12.9 % (0.0-12.0); Neutrophil % 55.9 % (36.0-66.0); Platelet Count 188 K/mm3 (150-450); Red Blood Count 4.04 M/mm3 (4.1-5.4); Red Cell Distribution Width 13.4 % (11.5-14.0)
[2019-09-19 20:17] LABS: ALBUMIN 3.3 g/dL (3.5-5.0); ANION GAP 10.4 MEQ/L (5-15); Calcium 9.1 mg/dL (8.4-10.2); Creatinine 1 1.36 mg/dL (0.52-1.04); Potassium 3.5 mmol/L (3.5-5.1); Total Protein 6.6 g/dL (6.3-8.2)
--- NOTE | 2019-09-19 21:43 | ERPHSYRPT ---
- History of Present Illness Time Seen by Provider: 09/19/19 19:30 Historian: patient Exam Limitations: no limitations Patient Subjective Stated Complaint: pt here for vomiting and loose stools for 2 days now, vomited x4 and loose stools, she also co pain to abd, cramping in nature, no fever Triage Nursing Assessment: pt alert, walked in, resp easy, skin w/d/p. moves all ext well, Physician History: Is a 78-year-old female who presents with a 24-hour history of nausea vomiting and diarrhea she had 4 episodes of emesis today and 2 diarrhea stools the diarrhea seems to have slowed somewhat since she took Imodium earlier today. He has some crampy abdominal pain 5 of 10 no fever no cough no sweats she has been basically at home sheltering in place for the past 5 weeks. She has called her family doctor is somewhat concerned she might get dehydrated. Timing/Duration: yesterday Activities at Onset: none Quality: cramping Abdominal Pain Onset Location: generalized abdomen Pain Radiation: no radiation Severity of Pain-Max: moderate Severity of Pain-Current: moderate Modifying Factors: Improves With: nothing Associated Symptoms: diarrhea, nausea, vomiting Previous symptoms: no prior history Allergies/Adverse Reactions: No Known Drug Allergies Allergy (Verified 09/19/19 19:27) Home Medications: Amlodipine Besylate [Norvasc] 2.5 mg PO DAILY 04/11/17 [History] Aspirin EC 81 mg [Ecotrin 81 mg] 81 mg PO DAILY 04/11/17 [History] Atorvastatin Calcium [Lipitor 20MG Tablet] 10 mg PO HS 04/11/17 [History] Carvedilol 6.25 mg [Coreg 6.25 MG] 6.25 mg PO BID 04/11/17 [History] Fluoxetine HCl 20 mg [Prozac 20 MG] 20 mg PO DAILY 04/11/17 [History] Folic Acid 2 tab PO DAILY 04/11/17 [History] Gabapentin [Neurontin] 300 mg PO QID 04/11/17 [History] Glipizide/Metformin HCl [Glipizide-Metformin 2.5-500 mg] 1 each PO DAILY [History] Isosorbide Mononitrate 30 mg [Imdur 30 MG] 30 mg PO DAILY 04/11/17 [History ] Losartan/Hydrochlorothiazide [Losartan-Hctz 50-12.5 mg Tab] 1 each PO DAILY [History] Leflunomide 20 mg PO DAILY 05/26/19 [History] Mirabegron [Myrbetriq] 25 mg PO DAILY 05/26/19 [History] Sulfamethoxazole/Trimethoprim [Bactrim Ds Tablet] 2 tab PO 3XW 05/26/19 [History ] predniSONE [Prednisone] 5 mg PO DAILY PRN PRN 05/26/19 [History] Hx Tetanus, Diphtheria Vaccination/Date Given: Yes Hx Influenza Vaccination/Date Given: Yes Hx Pneumococcal Vaccination/Date Given: Yes Immunizations Up to Date: Yes Travel Risk - International Travel Have you traveled outside of the country in past 3 weeks: No Have you or anyone close to you been diagnosed with or: No Do your reside in a community with a known COVID-19 case?: Yes If Yes where:: [place] - Coronavirus Screening Has patient experienced Coronavirus symptoms: No - Review of Systems Constitutional: No Fever, No Chills Eyes: No Symptoms Ears, Nose, & Throat: No Symptoms Respiratory: No Cough, No Dyspnea Cardiac: No Chest Pain, No Edema, No Syncope Abdominal/Gastrointestinal: Abdominal Pain, Nausea, Vomiting, Diarrhea Genitourinary Symptoms: No Dysuria Musculoskeletal: No Back Pain, No Neck Pain Skin: No Rash Neurological: No Dizziness, No Focal Weakness, No Sensory Changes Psychological: No Symptoms Endocrine: No Symptoms All Other Systems: Reviewed and Negative - Past Medical History Pertinent Past Medical History: Yes Neurological History: Peripheral Neuropathy ENT History: Cataracts Cardiac History: Arrhythmia, Hypertension Respiratory History: No Pertinent History Endocrine Medical History: Diabetes Type II Musculoskeletal History: Rheumatoid Arthritis, Other GI Medical History: No Pertinent History History: Other Psycho-Social History: No Pertinent History Female Reproductive Disorders: No Pertinent History Other Medical History: Heart flutter, 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, lupus, Schograns and lupus, frequent UTI - Past Surgical History Past Surgical History: Yes Neuro Surgical History: No Pertinent History Cardiac: Cardiac Catheterization Respiratory: No Pertinent History Gastrointestinal: Cholecystectomy Genitourinary: Other Musculoskeletal: No Pertinent History Female Surgical History: Hysterectomy Other Surgical History: bladder suspension - Social History Smoking Status: Never smoker Exposure to second hand smoke: No Drug Use: none Patient Lives Alone: No - Female History Hx Last Menstrual Period: post - Nursing Vital Signs Nursing Vital Signs: Initial Vital Signs Temperature 98.0 F 09/19/19 19:17 Pulse Rate 76 09/19/19 19:17 Respiratory Rate 16 09/19/19 19:17 Blood Pressure 162/90 09/19/19 19:17 O2 Sat by Pulse Oximetry 96 09/19/19 19:17 Pain Scale Pain Intensity 0 - Physical Exam General Appearance: no apparent distress, alert Eye Exam: PERRL/EOMI, eyes nml inspection Ears, Nose, Throat Exam: normal ENT inspection, pharynx normal, moist mucous membranes Neck Exam: normal inspection, non-tender, supple, full range of motion Respiratory Exam: normal breath sounds, lungs clear, No respiratory distress Cardiovascular Exam: regular rate/rhythm, normal heart sounds Gastrointestinal/Abdomen Exam: soft, normal bowel sounds, No tenderness, No distention, No mass, No guarding Back Exam: normal inspection, normal range of motion, No CVA tenderness, No vertebral tenderness Extremity Exam: normal inspection, normal range of motion, pelvis stable Neurologic Exam: alert, oriented x 3, cooperative, normal mood/affect, nml cerebellar function, sensation nml, No motor deficits Skin Exam: normal color, warm, dry SpO2: 96 - Course Nursing assessment & vital signs reviewed: Yes - Radiology Exams Abdomen X-ray Interpretation: Interpreted by me, Other (Nonspecific bowel gas pattern no free air no obstruction) Ordered Tests: Active Orders 24 hr Category Date Time Status IV Insertion STAT Care 09/19/19 19:18 Active Isolation, Initiate & Maintain Q4H Care 09/19/19 19:26 Active OBSTR/ACUTE ABDOMEN SERIES Stat Exams 09/19/19 19:19 Taken AMYLASE Stat Lab 09/19/19 19:56 Completed CBC W DIFF Stat Lab 09/19/19 19:56 Completed CMP Stat Lab 09/19/19 19:56 Completed LIPASE Stat Lab 09/19/19 19:56 Completed Lactic Acid Stat Lab 09/19/19 19:18 Completed UA W/RFX UR CULTURE Stat Lab 09/19/19 19:19 Ordered Medication Summary Discontinued Medications Generic Name Dose Route Start Last Admin Trade Name Freq PRN Reason Stop Dose Admin Sodium Chloride 1,000 mls @ 999 mls/hr 09/19/19 19:18 09/19/19 20:51 Sodium Chloride 0.9% 1000 Ml IV 09/19/19 20:18 Infused .Q1H1M STA Infusion Sodium Chloride Confirm 09/19/19 19:36 Sodium Chloride 0.9% 1000 Ml Administered 09/19/19 19:37 Dose 1,000 mls @ ud .ROUTE .STK-MED ONE Sodium Chloride Confirm 09/19/19 19:38 Sodium Chloride 0.9% 1000 Ml Administered 09/19/19 19:39 Dose 1,000 mls @ ud .ROUTE .STK-MED ONE Sodium Chloride Confirm 09/19/19 19:48 Sodium Chloride 0.9% 1000 Ml Administered 09/19/19 19:49 Dose 1,000 mls @ ud .ROUTE .STK-MED ONE Metoclopramide HCl 10 mg 09/19/19 19:18 09/19/19 19:51 Reglan 10 Mg/2 Ml IV 09/19/19 19:19 10 mg STAT ONE Administration Metoclopramide HCl Confirm 09/19/19 19:36 Reglan 10 Mg/2 Ml Administered 09/19/19 19:37 Dose 10 mg .ROUTE .STK-MED ONE Metoclopramide HCl Confirm 09/19/19 19:37 Reglan 10 Mg/2 Ml Administered 09/19/19 19:38 Dose 10 mg .ROUTE .STK-MED ONE Metoclopramide HCl Confirm 09/19/19 19:48 Reglan 10 Mg/2 Ml Administered 09/19/19 19:49 Dose 10 mg .ROUTE .STK-MED ONE Ondansetron HCl 4 mg 09/19/19 19:18 09/19/19 19:50 Zofran 4 Mg/2 Ml Vial IV 09/19/19 19:19 4 mg STAT ONE Administration Ondansetron HCl Confirm 09/19/19 19:36 Zofran 4 Mg/2 Ml Vial Administered 09/19/19 19:37 Dose 4 mg .ROUTE .STK-MED ONE Ondansetron HCl Confirm 09/19/19 19:37 Zofran 4 Mg/2 Ml Vial Administered 09/19/19 19:38 Dose 4 mg .ROUTE .STK-MED ONE Ondansetron HCl Confirm 09/19/19 19:47 Zofran 4 Mg/2 Ml Vial Administered 09/19/19 19:48 Dose 4 mg .ROUTE .STK-MED ONE Lab/Rad Data: Laboratory Result Diagrams 09/19/19 19:56 09/19/19 19:56 Laboratory Results 09/19/19 09/19/19 09/19/19 Range/Units 19:56 19:56 19:18 WBC 7.0 (4.0-10.5) K/mm3 RBC 4.04 L (4.1-5.4) M/mm3 Hgb 12.4 (12.0-16.0) gm/dl Hct 37.2 (35-47) % MCV 92.1 (78-100) fl MCH 30.7 (26-32) pg MCHC 33.3 (32-36) g/dl RDW 13.4 (11.5-14.0) % Plt Count 188 (150-450) K/mm3 MPV 9.6 (7.5-11.0) fl Gran % 55.9 (36.0-66.0) % Eos # (Auto) 0.07 (0-0.5) Absolute Lymphs (auto) 2.05 (1.0-4.6) Absolute Monos (auto) 0.90 (0.0-1.3) Lymphocytes % 29.5 (24.0-44.0) % Monocytes % 12.9 H (0.0-12.0) % Eosinophils % 1.0 (0.00-5.0) % Basophils % 0.7 (0.0-0.4) % Absolute Granulocytes 3.89 (1.4-6.9) Basophils # 0.05 (0-0.4) Sodium 137 (137-145) mmol/L Potassium 3.5 (3.5-5.1) mmol/L Chloride 108 H (98-107) mmol/L Carbon Dioxide 22 (22-30) mmol/L Anion Gap 10.4 (5-15) MEQ/L BUN 27 H (7-17) mg/dL Creatinine 1.36 H (0.52-1.04) mg/dL Estimated GFR 40.2 ML/MIN Glucose 84 (74-106) mg/dL Lactic Acid 1.3 (0.4-2.0) Calcium 9.1 (8.4-10.2) mg/dL Total Bilirubin 1.00 (0.2-1.3) mg/dL AST 39 H (14-36) U/L ALT 32 (0-35) U/L Alkaline Phosphatase 88 (38-126) U/L Serum Total Protein 6.6 (6.3-8.2) g/dL Albumin 3.3 L (3.5-5.0) g/dL Amylase 102 (30-110) U/L Lipase 350 H (23-300) U/L - Progress Progress: unchanged - Departure Departure Disposition: Home Clinical Impression: Gastroenteritis Condition: Stable Critical Care Time: No Referrals: KATHIE HODGE MD [Primary Care Provider] - Instructions: Viral Gastroenteritis Prescriptions: Ondansetron HCl [Zofran] 4 mg PO TID PRN #10 tablet PRN Reason: Nausea/Vomiting
[2019-09-19] MEDS ORDERED: Catapres 0.1 MG PO ONE (21:45)
[2019-09-19 21:46] VITALS: O2SAT 96
[2019-09-19] MEDS ORDERED: Catapres 0.1 MG ONE (21:46)
[2019-09-19] MEDS ORDERED: ZOFRAN ODT 4 MG PO ONE (21:48)
[2019-09-19] MEDS ORDERED: ZOFRAN ODT 4 MG ONE (21:50)
[2019-09-19 22:08] VITALS: BP 194/111
--- NOTE | 2019-09-19 22:28 | XRAY ---
Indication: Nausea, vomiting, diarrhea. Comparison: Chest exam May 26, 2019. 2 views of the abdomen demonstrates nonspecific nonobstructed bowel gas pattern with incidental cholecystectomy clips, splenic artery calcifications, mild osteopenia, mild multilevel degenerative lumbar spondylosis, and mild double curvature scoliosis. Single AP chest again demonstrates normal heart and lungs with incidental prominent right AP cardiac fat. Bony thorax demonstrates new healing lateral right 9 rib fracture. Impression: Nonacute nonobstructed abdomen with chronic features. Nonacute one view chest with incidental healing right 9 rib fracture.
== END 2019-09-19 22:14 | disposition home or self-care (01) ==
LOC: ED 18:35
DX: K52.9 Noninfective gastroenteritis and colitis, unspecified (principal); R11.2 Nausea with vomiting, unspecified; R19.7 Diarrhea, unspecified; R10.9 Unspecified abdominal pain; Z79.899 Other long term (current) drug therapy; I10 Essential (primary) hypertension; E11.9 Type 2 diabetes mellitus without complications
CPT/HCPCS: 36000; 36415; 74022; 80053; 82150; 83605; 83690; 85025; 96360; 96374; 96375; 99284; J2405; Q0162; A9270-GY

== ENCOUNTER 2020-02-18 12:47 | Day surgery (SDC) | payer MEDICARE ==
[2020-02-18] MEDS ORDERED: Sensorcaine 0.25% 10 ML IJ ONE (12:48)
[2020-02-18] MEDS ORDERED: Xylocaine 1% Vial 30 ML PF IJ ONE (12:48)
[2020-02-18] MEDS ORDERED: Depo-Medrol 40 MG/ML IM ONE (12:48)
--- NOTE | 2020-02-18 21:45 | XRAY ---
Indication: Bilateral SI joint injection. Intraoperative fluoroscopy was provided for 11 seconds. 4 digital spot images submitted for interpretation demonstrates posterior needle tips projecting over the inferior left and right SI joints. Correlate with intraoperative findings/report.
--- NOTE | 2020-02-18 21:48 | XRAY ---
Indication: Head injury following fall. Multiple contiguous axial images obtained through the head without contrast. Comparison: None Age-appropriate global atrophy. No acute intracranial hemorrhage, abnormal extra-axial fluid collection, or mass effect. Fourth ventricle is midline without hydrocephalus. Moderate sized right posterior and small left posterior scalp hematomas. Bony calvarium intact. Visualized paranasal sinuses and mastoid air cells are clear. Impression: Posterior scalp hematomas. No underlying fracture or acute intracranial abnormalities.
--- NOTE | 2020-02-18 21:56 | XRAY ---
11 seconds of fluoroscopy was used in surgery for bilateral SI joint injection.
== END 2020-02-18 16:14 | disposition home or self-care (01) ==
LOC: SDC-PAIN 12:47
PROVIDERS: ATTEND Psychiatry & Neurology Pain Medicine
DX: M46.1 Sacroiliitis, not elsewhere classified (principal); I10 Essential (primary) hypertension; M06.9 Rheumatoid arthritis, unspecified; M35.00 Sjogren syndrome, unspecified; Z79.899 Other long term (current) drug therapy; S00.03XA Contusion of scalp, initial encounter; W18.30XA Fall on same level, unspecified, initial encounter; Y93.F9 Activity, other caregiving; Y92.530 Ambulatory surgery center as the place of occurrence of the external cause
CPT/HCPCS: 70450; 72202; 77002; G0260; 27096; J1030; J2001

== ENCOUNTER 2020-10-13 10:58 | Day surgery (SDC) | payer MEDICARE ==
[2020-10-13] MEDS ORDERED: Depo-Medrol 40 MG/ML IM ONE (10:59)
[2020-10-13] MEDS ORDERED: LIDOCAINE HCL 2% 100 MG/5 ML IJ ONE (10:59)
[2020-10-13] MEDS ORDERED: DIPRIVAN 200 MG/20 ML IV ONE (12:20)
--- NOTE | 2020-10-13 16:22 | XRAY ---
13 seconds fluoroscopy time in surgery for left L4-S1 MBB.
[2020-10-13] MEDS ORDERED: Lactated Ringers 1,000 ML IV ONE (16:40)
--- NOTE | 2020-10-14 22:22 | XRAY ---
Indication: Left L4-S1 MBB. Intraoperative fluoroscopy was provided for 13 seconds. A single digital spot image submitted for interpretation demonstrate posterior needle tips projected over the expected course of the left L4-S1 nerve roots. Correlate with intraoperative findings/report.
== END 2020-10-13 12:56 | disposition home or self-care (01) ==
LOC: SDC-PAIN 10:58
PROVIDERS: ATTEND Psychiatry & Neurology Pain Medicine
DX: M47.816 Spondylosis without myelopathy or radiculopathy, lumbar region (principal); E11.9 Type 2 diabetes mellitus without complications; I10 Essential (primary) hypertension; M06.9 Rheumatoid arthritis, unspecified; M35.00 Sjogren syndrome, unspecified; Z79.899 Other long term (current) drug therapy
CPT/HCPCS: 64493; 64494; 72020; 77002; 82947; J1030; J2704

== ENCOUNTER 2020-10-27 11:30 | Day surgery (SDC) | payer MEDICARE ==
[2020-10-27] MEDS ORDERED: BUPIVACAINE 0.5% VIAL IJ ONE (11:31)
[2020-10-27] MEDS ORDERED: Depo-Medrol 40 MG/ML IM ONE (11:31)
[2020-10-27] MEDS ORDERED: DIPRIVAN 200 MG/20 ML IV ONE (13:13)
[2020-10-27] MEDS ORDERED: Xylocaine-Mpf 2% 5 Ml Vial ONE (13:14)
[2020-10-27] MEDS ORDERED: Lactated Ringers 1,000 ML IV ONE (16:26)
--- NOTE | 2020-10-27 17:40 | XRAY ---
7 seconds of fluoroscopy was used in surgery for a bilateral L4-L5 and L5-S1 MBB.
== END 2020-10-27 13:41 | disposition home or self-care (01) ==
LOC: SDC-PAIN 11:30
PROVIDERS: ATTEND Psychiatry & Neurology Pain Medicine
DX: M47.816 Spondylosis without myelopathy or radiculopathy, lumbar region (principal); E11.9 Type 2 diabetes mellitus without complications; I10 Essential (primary) hypertension; M06.9 Rheumatoid arthritis, unspecified; M35.00 Sjogren syndrome, unspecified; Z79.899 Other long term (current) drug therapy
CPT/HCPCS: 64493; 64494; 72020; 77002; 82947; J1030; J2704

== ENCOUNTER 2020-11-24 07:35 | Day surgery (SDC) | payer MEDICARE ==
[2020-11-24] MEDS ORDERED: Depo-Medrol 40 MG/ML IM ONE (07:36)
[2020-11-24] MEDS ORDERED: BUPIVACAINE 0.5% VIAL IJ ONE (07:36)
[2020-11-24] MEDS ORDERED: Xylocaine-Mpf 2% 5 Ml Vial ONE (09:01)
--- NOTE | 2020-11-24 10:34 | XRAY ---
Indication: Right L4-S1 MBB. Intraoperative fluoroscopy provided 6 seconds. Single digital spot image submitted for interpretation demonstrates posterior needle tips projecting over the expected right L4-S1 nerve roots. Correlate with intraoperative findings/report.
--- NOTE | 2020-11-24 10:38 | XRAY ---
6 seconds fluoroscopy time in surgery for right L4-S1 MBB.
[2020-11-24] MEDS ORDERED: Lactated Ringers 1,000 ML IV ONE (15:39)
== END 2020-11-24 09:24 | disposition home or self-care (01) ==
LOC: SDC-PAIN 07:35
PROVIDERS: ATTEND Psychiatry & Neurology Pain Medicine
DX: M47.816 Spondylosis without myelopathy or radiculopathy, lumbar region (principal); M06.9 Rheumatoid arthritis, unspecified; I10 Essential (primary) hypertension; E11.9 Type 2 diabetes mellitus without complications; Z79.899 Other long term (current) drug therapy
CPT/HCPCS: 64493; 64494; 72020; 77002; 82947; J1030

== ENCOUNTER 2020-12-22 07:46 | Day surgery (SDC) | payer MEDICARE ==
[2020-12-22] MEDS ORDERED: Depo-Medrol 40 MG/ML IM ONE (07:47)
[2020-12-22] MEDS ORDERED: BUPIVACAINE 0.5% VIAL IJ ONE (07:47)
[2020-12-22] MEDS ORDERED: Xylocaine 1% Vial 30 ML PF IJ ONE (07:47)
[2020-12-22] MEDS ORDERED: DIPRIVAN 200 MG/20 ML IV ONE (09:28)
[2020-12-22] MEDS ORDERED: Lactated Ringers 1,000 ML IV ONE (11:31)
--- NOTE | 2020-12-22 11:49 | XRAY ---
Indication: Left L4-S1 RFA. Intraoperative fluoroscopy provided for 17 seconds. 3 digital spot image submitted for interpretation demonstrates posterior needle tips projecting over the expected left L4-S1 nerve roots. Correlate with intraoperative findings/report.
--- NOTE | 2020-12-22 11:54 | XRAY ---
17 seconds of fluoroscopy was used in surgery for a left L4-L5 and L5-S1 RFA.
== END 2020-12-22 10:02 | disposition home or self-care (01) ==
LOC: SDC-PAIN 07:46
PROVIDERS: ATTEND Psychiatry & Neurology Pain Medicine
DX: M47.817 Spondylosis without myelopathy or radiculopathy, lumbosacral region (principal); E11.9 Type 2 diabetes mellitus without complications; I10 Essential (primary) hypertension; M06.9 Rheumatoid arthritis, unspecified; M35.00 Sjogren syndrome, unspecified; Z79.899 Other long term (current) drug therapy
CPT/HCPCS: 64635; 64636; 72100; 77002; 82947; 99100; J1030; J2001; J2704

== ENCOUNTER 2020-12-29 08:06 | Day surgery (SDC) | payer MEDICARE ==
[2020-12-29] MEDS ORDERED: Xylocaine 1% Vial 30 ML PF IJ ONE (08:07)
[2020-12-29] MEDS ORDERED: Depo-Medrol 40 MG/ML IM ONE (08:07)
[2020-12-29] MEDS ORDERED: BUPIVACAINE 0.5% VIAL IJ ONE (08:07)
[2020-12-29] MEDS ORDERED: DIPRIVAN 200 MG/20 ML IV ONE (09:41)
[2020-12-29] MEDS ORDERED: Xylocaine-Mpf 2% 5 Ml Vial ONE (10:02)
--- NOTE | 2020-12-29 15:56 | XRAY ---
22 seconds of fluoroscopy was used in surgery for a right L4-S1 RFA.
[2020-12-29] MEDS ORDERED: Lactated Ringers 1,000 ML IV ONE (17:30)
== END 2020-12-29 10:14 | disposition home or self-care (01) ==
LOC: SDC-PAIN 08:06
PROVIDERS: ATTEND Psychiatry & Neurology Pain Medicine
DX: M47.816 Spondylosis without myelopathy or radiculopathy, lumbar region (principal); I10 Essential (primary) hypertension; E11.9 Type 2 diabetes mellitus without complications; M06.9 Rheumatoid arthritis, unspecified; Z79.899 Other long term (current) drug therapy
CPT/HCPCS: 64635; 64636; 72100; 77002; 82947; 99100; J1030; J2001; J2704

== ENCOUNTER 2021-07-06 07:41 | Day surgery (SDC) | payer MEDICARE ==
[2021-07-06] MEDS ORDERED: BUPIVACAINE 0.5% VIAL IJ ONE (07:42)
[2021-07-06] MEDS ORDERED: Depo-Medrol 40 MG/ML IM ONE (07:42)
[2021-07-06] MEDS ORDERED: APRESOLINE 20 MG/ML INJ ONE (08:36)
[2021-07-06] MEDS ORDERED: Lactated Ringers 1,000 ML IV ONE (08:58)
[2021-07-06] MEDS ORDERED: Xylocaine-Mpf 2% 5 Ml Vial ONE (09:15)
[2021-07-06] MEDS ORDERED: DIPRIVAN 200 MG/20 ML IV ONE (09:15)
--- NOTE | 2021-07-06 11:38 | XRAY ---
Indication: Bilateral SI joint injection. Intraoperative fluoroscopy provided for 21 seconds. 4 digital spot image submitted for interpretation demonstrates posterior needle tip projecting over the inferior left and right right SI joint. Correlate with intraoperative findings/report.
--- NOTE | 2021-07-06 11:42 | XRAY ---
21 seconds of fluoroscopy was used in surgery for a bilateral sacroiliac joint injection.
== END 2021-07-06 09:40 | disposition home or self-care (01) ==
LOC: SDC-PAIN 07:41
PROVIDERS: ATTEND Psychiatry & Neurology Pain Medicine
DX: M46.1 Sacroiliitis, not elsewhere classified (principal); E11.9 Type 2 diabetes mellitus without complications; I10 Essential (primary) hypertension; Z79.899 Other long term (current) drug therapy
CPT/HCPCS: 27096; 72202; 77002; 82947; G0260; 99100; J0360; J1030; J2704

== ENCOUNTER 2021-09-17 11:57 | Inpatient (IN) | payer MEDICARE ==
[2021-09-17] MEDS ORDERED: SUBLIMAZE 100 MCG/2 ML IV ONE ×2 (12:01→12:23)
[2021-09-17] MEDS ORDERED: Zofran 4 MG/2 ML VIAL IV ONE (12:01)
[2021-09-17] MEDS ORDERED: SUBLIMAZE 100 MCG/2 ML ONE ×2 (12:02→12:27)
[2021-09-17] MEDS ORDERED: Zofran 4 MG/2 ML VIAL ONE (12:02)
[2021-09-17 12:24] LABS: INR 1.12 (0.8-3.0); PROTIME 13.2 SECONDS (9.4-12.5)
[2021-09-17 12:25] LABS: Mean Cell Volume 96.5 fl (78-100); Mean Corpuscular Hemoglobin 32.2 pg (26-32); Mean Corpuscular Hgb Concent. 33.3 g/dl (32-36); Mean Platelet Volume 9.8 fl (7.5-11.0); Platelet Count 235 K/mm3 (150-450); Red Blood Count 4.04 M/mm3 (4.1-5.4); Red Cell Distribution Width 13.1 % (11.5-14.0); White Blood Count 12.5 K/mm3 (4.0-10.5)
[2021-09-17 12:27] LABS: PTT 26.2 SECONDS (25.1-36.5)
[2021-09-17 12:28] LABS: ALBUMIN 4.5 g/dL (3.5-5.0); ANION GAP 21.2 MEQ/L (5-15); BILIRUBIN,TOTAL 0.8 mg/dL (0.2-1.3); Calcium 9.5 mg/dL (8.4-10.2); Creatinine 1 1.91 mg/dL (0.52-1.04); Potassium 4.7 mmol/L (3.5-5.1); Total Protein 7.3 g/dL (6.3-8.2)
[2021-09-17] MEDS ORDERED: Hydromorphone 1 mg/ml Injection ONE (12:56)
[2021-09-17] MEDS ORDERED: Hydromorphone 1 mg/ml Injection IV ONE (12:57)
--- NOTE | 2021-09-17 13:26 | ERPHSYRPT ---
- History of Present Illness Source: patient Exam Limitations: no limitations Patient Subjective Stated Complaint: Pt became nauseous and was going to the restroom when she became dizzy and then passed out and injured her left ankle, pt started a zpack and a medrol dose pack yesterday for a sinus infection and she thinks that may have been what caused her to get dizzy Triage Nursing Assessment: Pt brought to the ER by EMS, hypertensive, pt's left distal lower extremity appears disloccated with redness/bruising and swelling, pt denies any other injuries in the fall, pt states that she vomitted once she was outside, pulses bounding in left foot, cap refill normal Physician History: 80 yo wf had a syncopal episode after becoming nauseated in her living room before arrival. Pt has an obvious L ankle fracture. She denies focal weakness/vomiting/fever/chest pain/abdominal pain/BECERRA/melena/hematochezia/cough. Timing/Duration: other (Before arrival) Severity: moderate Modifying Factors: Improves With: movement. Worsens With: cold therapy, eating, immobilization, medication, rest, acetaminophen, ibuprofen, nothing Allergies/Adverse Reactions: No Known Drug Allergies Allergy (Verified 09/17/21 12:13) Home Medications: Aspirin EC 81 mg [Ecotrin 81 mg] 81 mg PO DAILY 04/11/17 [History] Atorvastatin Calcium [Lipitor 20MG Tablet] 10 mg PO HS 04/11/17 [History] Carvedilol 6.25 mg [Coreg 6.25 MG] 3.125 mg PO BID 04/11/17 [History] Folic Acid 800 mcg PO DAILY 04/11/17 [History] Gabapentin [Neurontin] 400 mg PO TID 04/11/17 [History] predniSONE [Prednisone] 5 mg PO DAILY PRN PRN 05/26/19 [History] Alendronate Sodium 70 mg [Fosamax 70 MG] 70 mg PO Q7D@0600 09/17/21 [History] Cyanocobalamin (Vitamin B-12) [Vitamin B12] 2,500 mcg PO DAILY 09/17/21 [History] Furosemide 40 mg [Lasix 40 MG] 40 mg PO DAILY 09/17/21 [History] Golimumab [Simponi Aria] 50 mg IM UD 09/17/21 [History] HydrALAzine HCL 25 MG TAB [Apresoline 25 MG TABLET] 25 mg PO TID 09/17/21 [History] Isosorbide Mononitrate [Isosorbide Mononitrate ER] 60 mg PO DAILY 09/17/21 [History] Losartan Potassium 50 mg [Cozaar 50 MG] 50 mg PO BID 09/17/21 [History] Metformin HCl Xr 500 mg [Glucophage XR 500 MG] 500 mg PO BID 09/17/21 [History] [place]-3 Fatty Acids/Fish Oil [Fish Oil 1,000 mg Capsule] 1 tab PO DAILY 09/17/21 [History] Potassium Chloride 10 meq PO BID 09/17/21 [History] Hx Tetanus, Diphtheria Vaccination/Date Given: Yes Hx Influenza Vaccination/Date Given: Yes Hx Pneumococcal Vaccination/Date Given: Yes Travel Risk - International Travel Have you traveled outside of the country in past 3 weeks: No - Coronavirus Screening Are you exhibiting any of the following symptoms?: No Close contact with a COVID-19 positive Pt in past 14-21 Days: No - Vaccine Status Have you recieved a Covid-19 vaccination: Yes 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: [employer] - Vaccination Dates Date of 2cond Vaccination (if applicable): 08/10/2020 - Review of Systems Constitutional: No Symptoms Eyes: No Symptoms Ears, Nose, & Throat: No Symptoms Respiratory: No Symptoms Cardiac: No Symptoms Abdominal/Gastrointestinal: No Symptoms, Nausea Genitourinary Symptoms: No Symptoms Musculoskeletal: No Symptoms Skin: No Symptoms Neurological: No Symptoms Psychological: No Symptoms Endocrine: No Symptoms Hematologic/Lymphatic: No Symptoms Immunological/Allergic: No Symptoms - Past Medical History Pertinent Past Medical History: Yes Neurological History: No Pertinent History ENT History: Cataracts Cardiac History: Hypertension Respiratory History: No Pertinent History Endocrine Medical History: Diabetes Type II Musculoskeletal History: Osteoarthritis GI Medical History: No Pertinent History History: Other Psycho-Social History: No Pertinent History Female Reproductive Disorders: No Pertinent History Other Medical History: LUPUS, SJOGREN'S, B LE EDEMA. TAIL BONE FRACTURE. - Past Surgical History Past Surgical History: Yes Neuro Surgical History: No Pertinent History Cardiac: Cardiac Catheterization Respiratory: No Pertinent History Gastrointestinal: Cholecystectomy Genitourinary: Other Musculoskeletal: No Pertinent History Female Surgical History: Hysterectomy Other Surgical History: bladder suspension - Social History Smoking Status: Never smoker Exposure to second hand smoke: No Drug Use: none Patient Lives Alone: No Significant Family History: no pertinent family hx - Nursing Vital Signs Nursing Vital Signs: Initial Vital Signs Temperature 98.5 F 09/17/21 12:01 Pulse Rate 71 09/17/21 12:01 Blood Pressure 164/87 09/17/21 12:01 O2 Sat by Pulse Oximetry 98 09/17/21 12:01 Pain Scale Pain Intensity 6 Hypertensive - Physical Exam General Appearance: mild distress (Due to ankle pain) Eye Exam: PERRL/EOMI, eyes nml inspection Ears, Nose, Throat Exam: normal ENT inspection, TMs normal, pharynx normal, moist mucous membranes Neck Exam: normal inspection (C-spine NTTP), non-tender, supple, full range of motion, No meningismus, No mass, No Brudzinski, No Kernig's, No carotid bruit, No JVD Respiratory Exam: normal breath sounds, lungs clear, airway intact, No chest tenderness, No respiratory distress Cardiovascular Exam: regular rate/rhythm, normal heart sounds, normal peripheral pulses, capillary refill <2 sec, No murmur Gastrointestinal/Abdomen Exam: soft, normal bowel sounds, No tenderness Pelvic Exam: not done Rectal Exam: deferred Back Exam: normal inspection, normal range of motion, other (No T/L-spine TTP), No CVA tenderness Extremity Exam: other (Obvious deformity of L ankle/good pedal pulse, distal sensation, and capillary return/Marked TTP/Marked edema) Neurologic Exam: alert, oriented x 3, cooperative, 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, normal mood/affect, sensation nml, No motor deficits, No sensory deficit Skin Exam: normal color, warm, dry, No rash Lymphatic Exam: No adenopathy SpO2 Interpretation: normal SpO2: 98 O2 Delivery: Room Air Procedures - Splinting Location of Splint: Left, Lower Leg Type of Splint: Orthoglass Short Leg Splint Splint Applied By: ED Physician Pre-Proc Neuro Vasc Exam: normal Post-Proc Neuro Vasc Exam: neurovascular intact - Course Nursing assessment & vital signs reviewed: Yes EKG Interpreted by Me: RATE (NSR/Rate 71/Poor R wave progression/Prolonged QTc/IVCD/Borderline 1st degree AV block/No acute ST segment changes) - Radiology Exams Ankle X-ray Interpretation: Interpreted by me (L ankle/Mid-distal L fibula fx/Lateral malleolar fx/posterior displacement/Probable medial tibial fx/Post reduction film w good reduction) - CT Exams Head CT Interpretation: Tele-radiologist Report (NAD) Ordered Tests: Active Orders 24 hr Category Date Time Status EKG-ER Only STAT Care 09/17/21 12:03 Completed Stephens [Catheter-[place] Stephens] STAT Care 09/17/21 13:35 Completed IV Insertion STAT Care 09/17/21 12:07 Completed Heart-Healthy Diet Diet 09/17/21 Dinner Active ANKLE (2V) Stat Exams 09/17/21 14:10 Completed ANKLE (3 VIEWS) Stat Exams 09/17/21 13:18 Completed CHEST 1 VIEW (PORTABLE) Stat Exams 09/17/21 12:03 Completed HEAD WITHOUT CONTRAST [CT] Stat Exams 09/17/21 12:04 Completed CBC W DIFF Stat Lab 09/17/21 11:05 Completed CMP AM.LAB Lab 09/18/21 04:00 Ordered CMP Stat Lab 09/17/21 11:05 Completed CULTURE,URINE Stat Lab 09/17/21 15:16 Ordered Manual Differential NC Stat Lab 09/17/21 11:05 Completed POCT GLUCOSE Stat Lab 09/17/21 15:01 Completed PROTIME WITH INR Stat Lab 09/17/21 11:05 Completed PTT Stat Lab 09/17/21 11:05 Completed TROPONIN Q3H Lab 09/17/21 11:05 Completed TROPONIN Q3H Lab 09/17/21 15:40 Completed TROPONIN Q3H Lab 09/18/21 00:15 Ordered Urine Triage Profile Stat Lab 09/17/21 12:29 Completed Transfer Order Routine Transfer 09/17/21 Completed Medication Summary Generic Name Dose Route Start Last Admin Trade Name Freq PRN Reason Stop Dose Admin Aspirin 325 mg 09/17/21 22:00 09/17/21 22:14 Aspirin 325 Mg Tablet.Ec PO 10/17/21 21:59 325 mg HS HARMAN Administration Atorvastatin Calcium 10 mg 09/17/21 22:00 09/17/21 22:14 Atorvastatin Calcium 40 Mg Tablet PO 09/17/21 22:01 10 mg ONCE ONE Administration Carvedilol 3.125 mg 09/17/21 22:00 09/17/21 22:15 Carvedilol 6.25 Mg Tablet PO 09/17/21 22:01 3.125 mg ONCE ONE Administration Gabapentin 400 mg 09/17/21 22:00 09/17/21 22:14 Gabapentin 400 Mg Capsule PO 09/17/21 22:01 400 mg ONCE ONE Administration Hydralazine HCl 25 mg 09/17/21 22:00 09/17/21 22:13 Hydralazine Hcl 25 Mg Tablet PO 09/17/21 22:01 25 mg ONCE ONE Administration Hydromorphone HCl 1 mg 09/17/21 14:36 09/17/21 22:23 Hydromorphone 1 Mg/1ml Inj 1 Mg/Ml Syringe IV 09/22/21 14:35 1 mg Q1H PRN PRN Administration PAIN Sodium Chloride 1,000 mls @ 80 mls/hr 09/17/21 14:45 09/17/21 22:17 Sodium Chloride 0.9% 1000 Ml IV 10/17/21 14:44 80 mls/hr .[id number] HARMAN Administration Insulin Human Lispro 0 unit 09/17/21 14:36 Insulin Lispro 1 Unit SQ 10/17/21 14:35 UD PRN HYPERGLYCEMIA Losartan Potassium 50 mg 09/17/21 22:00 09/17/21 22:14 Losartan Potassium 50 Mg Tablet PO 09/17/21 22:01 50 mg ONCE ONE Administration Ondansetron HCl 4 mg 09/17/21 14:36 Ondansetron Hcl 4 Mg/2 Ml Vial IV 10/17/21 14:35 Q6H PRN PRN NAUSEA/VOMITING Potassium Chloride 10 meq 09/17/21 22:00 09/17/21 22:15 Potassium Chloride 10 Meq Tablet PO 09/17/21 22:01 10 meq ONCE ONE Administration Discontinued Medications Generic Name Dose Route Start Last Admin Trade Name Freq PRN Reason Stop Dose Admin Fentanyl Citrate 50 mcg 09/17/21 12:01 09/17/21 12:04 Fentanyl Citrate 100 Mcg/2 Ml* Vial IV 09/17/21 12:02 50 mcg STAT ONE Administration Fentanyl Citrate Confirm 09/17/21 12:02 Fentanyl Citrate 100 Mcg/2 Ml* Vial Administered 09/17/21 12:03 Dose 100 mcg .ROUTE .STK-MED ONE Fentanyl Citrate 50 mcg 09/17/21 12:23 09/17/21 12:33 Fentanyl Citrate 100 Mcg/2 Ml* Vial IV 09/17/21 12:24 50 mcg STAT ONE Administration Fentanyl Citrate Confirm 09/17/21 12:27 Fentanyl Citrate 100 Mcg/2 Ml* Vial Administered 09/17/21 12:28 Dose 100 mcg .ROUTE .STK-MED ONE Hydromorphone HCl 1 mg 09/17/21 12:57 09/17/21 12:58 Hydromorphone 1 Mg/1ml Inj 1 Mg/Ml Syringe IV 09/17/21 12:58 1 mg STAT ONE Administration Hydromorphone HCl Confirm 09/17/21 12:56 Hydromorphone 1 Mg/1ml Inj 1 Mg/Ml Syringe Administered 09/17/21 12:57 Dose 1 mg .ROUTE .STK-MED ONE Sodium Chloride 1,000 mls @ 999 mls/hr 09/17/21 13:34 09/17/21 14:39 Sodium Chloride 0.9% 1000 Ml IV 09/17/21 14:34 Infused .Q1H1M STA Infusion Sodium Chloride Confirm 09/17/21 13:34 Sodium Chloride 0.9% 1000 Ml Administered 09/17/21 13:35 Dose 1,000 mls @ ud .ROUTE .STK-MED ONE Ondansetron HCl 4 mg 09/17/21 12:01 09/17/21 12:04 Ondansetron Hcl 4 Mg/2 Ml Vial IV 09/17/21 12:02 4 mg STAT ONE Administration Ondansetron HCl Confirm 09/17/21 12:02 Ondansetron Hcl 4 Mg/2 Ml Vial Administered 09/17/21 12:03 Dose 4 mg .ROUTE .STK-MED ONE Simvastatin Confirm 09/17/21 22:08 Simvastatin 10 Mg Tablet Administered 09/17/21 22:09 Dose 10 mg .ROUTE .STK-MED ONE Lab/Rad Data: Laboratory Result Diagrams 09/17/21 11:05 09/17/21 11:05 Laboratory Results 09/17/21 09/17/21 09/17/21 Range/Units 15:17 15:01 12:29 WBC (4.0-10.5) K/mm3 RBC (4.1-5.4) M/mm3 Hgb (12.0-16.0) gm/dl Hct (35-47) % MCV (78-100) fl MCH (26-32) pg MCHC (32-36) g/dl RDW (11.5-14.0) % Plt Count (150-450) K/mm3 MPV (7.5-11.0) fl Segmented Neutrophils (36.0-66.0) % Band Neutrophils (0.0-2.0) % Lymphocytes (Manual) (24-44) % Monocytes (Manual) (0.0-12.0) % Toxic Granulation Platelet Estimate (NORMAL) RBC Morphology PT (9.4-12.5) SECONDS INR (0.8-3.0) APTT (25.1-36.5) SECONDS Sodium (137-145) mmol/L Potassium (3.5-5.1) mmol/L Chloride (98-107) mmol/L Carbon Dioxide (22-30) mmol/L Anion Gap (5-15) MEQ/L BUN (7-17) mg/dL Creatinine (0.52-1.04) mg/dL Estimated GFR ML/MIN Glucose (74-106) mg/dL POC Glucometer 130 H (74 to 106) mg/dL Calcium (8.4-10.2) mg/dL Total Bilirubin (0.2-1.3) mg/dL AST (14-36) U/L ALT (0-35) U/L Alkaline Phosphatase (38-126) U/L Troponin I (0.000-0.034) ng/mL Serum Total Protein (6.3-8.2) g/dL Albumin (3.5-5.0) g/dL Urinalys Dipstick Clnc MAIN LAB Urine Color YELLOW (YELLOW) Urine Appearance CLEAR (CLEAR) Urine pH 5.5 (5-6) Ur Specific [place] 1.010 (1.005-1.025) POC Urine Protein Conf NEGATIVE (Negative) Urine Ketones NEGATIVE (NEGATIVE) Urine Nitrite NEGATIVE (NEGATIVE) Urine Bilirubin NEGATIVE (NEGATIVE) Urine Urobilinogen 0.2 (0-1) mg/dL Urine Leukocytes NEGATIVE (NEGATIVE) Urine WBC (Auto) NONE (0-5) /HPF Urine RBC (Auto) NONE (0-2) /HPF U Hyaline Cast (Auto) 11-25 (0-2) /LPF U Epithel Cells (Auto) NONE (FEW) /HPF Urine Bacteria (Auto) NONE (NEGATIVE) /HPF Urine RBC NEGATIVE (0-5) Jack/ul Urine Mucus (Auto) SLIGHT (NEGATIVE) /HPF Ur Culture Indicated? ORDERED SEPARATELY Urine Glucose NEGATIVE (NEGATIVE) mg/dL Urine Opiates Level (NEGATIVE) Ur Methadone (NEGATIVE) Urine Barbiturates (NEGATIVE) Ur Phencyclidine (PCP) (NEGATIVE) Urine Amphetamine (NEGATIVE) U Benzodiazepine Level (NEGATIVE) Urine Cocaine (NEGATIVE) Urine Marijuana (THC) (NEGATIVE) Influenza Type A Ag NEGATIVE (NEGATIVE) Influenza Type B Ag NEGATIVE (NEGATIVE) RSV (PCR) NEGATIVE (Negative) SARS-CoV-2 (PCR) NEGATIVE (NEGATIVE) 09/17/21 09/17/21 09/17/21 Range/Units 12:29 12:29 11:05 WBC (4.0-10.5) K/mm3 RBC (4.1-5.4) M/mm3 Hgb (12.0-16.0) gm/dl Hct (35-47) % MCV (78-100) fl MCH (26-32) pg MCHC (32-36) g/dl RDW (11.5-14.0) % Plt Count (150-450) K/mm3 MPV (7.5-11.0) fl Segmented Neutrophils (36.0-66.0) % Band Neutrophils (0.0-2.0) % Lymphocytes (Manual) (24-44) % Monocytes (Manual) (0.0-12.0) % Toxic Granulation Platelet Estimate (NORMAL) RBC Morphology PT (9.4-12.5) SECONDS INR (0.8-3.0) APTT (25.1-36.5) SECONDS Sodium (137-145) mmol/L Potassium (3.5-5.1) mmol/L Chloride (98-107) mmol/L Carbon Dioxide (22-30) mmol/L Anion Gap (5-15) MEQ/L BUN (7-17) mg/dL Creatinine (0.52-1.04) mg/dL Estimated GFR ML/MIN Glucose (74-106) mg/dL POC Glucometer (74 to 106) mg/dL Calcium (8.4-10.2) mg/dL Total Bilirubin (0.2-1.3) mg/dL AST (14-36) U/L ALT (0-35) U/L Alkaline Phosphatase (38-126) U/L Troponin I < 0.012 (0.000-0.034) ng/mL Serum Total Protein (6.3-8.2) g/dL Albumin (3.5-5.0) g/dL Urinalys Dipstick Clnc MAIN LAB Urine Color YELLOW (YELLOW) Urine Appearance CLEAR (CLEAR) Urine pH 5.5 (5-6) Ur Specific [place] 1.010 (1.005-1.025) POC Urine Protein Conf NEGATIVE (Negative) Urine Ketones NEGATIVE (NEGATIVE) Urine Nitrite NEGATIVE (NEGATIVE) Urine Bilirubin NEGATIVE (NEGATIVE) Urine Urobilinogen 0.2 (0-1) mg/dL Urine Leukocytes NEGATIVE (NEGATIVE) Urine WBC (Auto) NONE (0-5) /HPF Urine RBC (Auto) NONE (0-2) /HPF U Hyaline Cast (Auto) 11-25 (0-2) /LPF U Epithel Cells (Auto) NONE (FEW) /HPF Urine Bacteria (Auto) NONE (NEGATIVE) /HPF Urine RBC NEGATIVE (0-5) Jack/ul Urine Mucus (Auto) (NEGATIVE) /HPF Ur Culture Indicated? YES Urine Glucose NEGATIVE (NEGATIVE) mg/dL Urine Opiates Level NEGATIVE (NEGATIVE) Ur Methadone NEGATIVE (NEGATIVE) Urine Barbiturates NEGATIVE (NEGATIVE) Ur Phencyclidine (PCP) NEGATIVE (NEGATIVE) Urine Amphetamine NEGATIVE (NEGATIVE) U Benzodiazepine Level NEGATIVE (NEGATIVE) Urine Cocaine NEGATIVE (NEGATIVE) Urine Marijuana (THC) NEGATIVE (NEGATIVE) Influenza Type A Ag (NEGATIVE) Influenza Type B Ag (NEGATIVE) RSV (PCR) (Negative) SARS-CoV-2 (PCR) (NEGATIVE) 09/17/21 09/17/21 09/17/21 Range/Units 11:05 11:05 11:05 WBC 12.5 H (4.0-10.5) K/mm3 RBC 4.04 L (4.1-5.4) M/mm3 Hgb 13.0 (12.0-16.0) gm/dl Hct 39.0 (35-47) % MCV 96.5 (78-100) fl MCH 32.2 H (26-32) pg MCHC 33.3 (32-36) g/dl RDW 13.1 (11.5-14.0) % Plt Count 235 (150-450) K/mm3 MPV 9.8 (7.5-11.0) fl Segmented Neutrophils 66 (36.0-66.0) % Band Neutrophils 3 H (0.0-2.0) % Lymphocytes (Manual) 22 L (24-44) % Monocytes (Manual) 9 (0.0-12.0) % Toxic Granulation 1+ Platelet Estimate NORMAL (NORMAL) RBC Morphology NORMAL PT 13.2 H (9.4-12.5) SECONDS INR 1.12 (0.8-3.0) APTT 26.2 (25.1-36.5) SECONDS Sodium 138 (137-145) mmol/L Potassium 4.7 (3.5-5.1) mmol/L Chloride 104 (98-107) mmol/L Carbon Dioxide 17 L (22-30) mmol/L Anion Gap 21.2 H (5-15) MEQ/L BUN 30 H (7-17) mg/dL Creatinine 1.91 H (0.52-1.04) mg/dL Estimated GFR 27.0 ML/MIN Glucose 110 H (74-106) mg/dL POC Glucometer (74 to 106) mg/dL Calcium 9.5 (8.4-10.2) mg/dL Total Bilirubin 0.80 (0.2-1.3) mg/dL AST 42 H (14-36) U/L ALT 31 (0-35) U/L Alkaline Phosphatase 55 (38-126) U/L Troponin I (0.000-0.034) ng/mL Serum Total Protein 7.3 (6.3-8.2) g/dL Albumin 4.5 (3.5-5.0) g/dL Urinalys Dipstick Clnc Urine Color (YELLOW) Urine Appearance (CLEAR) Urine pH (5-6) Ur Specific [place] (1.005-1.025) POC Urine Protein Conf (Negative) Urine Ketones (NEGATIVE) Urine Nitrite (NEGATIVE) Urine Bilirubin (NEGATIVE) Urine Urobilinogen (0-1) mg/dL Urine Leukocytes (NEGATIVE) Urine WBC (Auto) (0-5) /HPF Urine RBC (Auto) (0-2) /HPF U Hyaline Cast (Auto) (0-2) /LPF U Epithel Cells (Auto) (FEW) /HPF Urine Bacteria (Auto) (NEGATIVE) /HPF Urine RBC (0-5) Jack/ul Urine Mucus (Auto) (NEGATIVE) /HPF Ur Culture Indicated? Urine Glucose (NEGATIVE) mg/dL Urine Opiates Level (NEGATIVE) Ur Methadone (NEGATIVE) Urine Barbiturates (NEGATIVE) Ur Phencyclidine (PCP) (NEGATIVE) Urine Amphetamine (NEGATIVE) U Benzodiazepine Level (NEGATIVE) Urine Cocaine (NEGATIVE) Urine Marijuana (THC) (NEGATIVE) Influenza Type A Ag (NEGATIVE) Influenza Type B Ag (NEGATIVE) RSV (PCR) (Negative) SARS-CoV-2 (PCR) (NEGATIVE) - Progress Progress: improved Progress Note: 09/17/21 14:[address] Mullen, wants post reduction films done. Good reduction. Wants martinez kraus also. Will see on floor tonight. Admit per Dr. Aidee kraus per nursing LLE/NVI 09/17/21 14:33 09/17/21 14:43 Admitting orders written 1L NS bolus 50umg IV Fentanyl/4mg IV Zofran w mild improvement in pain 50umg IV Fentanyl w moderate improvement in pain 1mg IV Dilaudid before reduction/splinting Discussed with .: [place], Other (Dr. Mullen) Counseled pt/family regarding: lab results, diagnosis, need for follow-up, rad results - Departure Departure Disposition: Observation Clinical Impression: Ankle fracture, left, Syncope Condition: Stable Critical Care Time: No
[2021-09-17] MEDS ORDERED: Sodium Chloride 0.9% 1000 ML 1,000 ML IV STA (13:34)
[2021-09-17] MEDS ORDERED: Sodium Chloride 0.9% 1000 ML 1,000 ML ONE (13:34)
[2021-09-17 14:14] LABS: BAND 3 % (0.0-2.0); Lymphocytes 22 % (24-44); Monocyte 9 % (0.0-12.0); Neutrophils 66 % (36.0-66.0); Total Cells Counted 100
[2021-09-17 14:15] LABS: Platelet Estimate NORMAL (NORMAL); Toxic Granulation 1+
[2021-09-17] MEDS ORDERED: Zofran 4 MG/2 ML VIAL IV PRN (14:36)
[2021-09-17] MEDS ORDERED: HUMALOG SQ PRN (14:36)
[2021-09-17 14:49] LABS: Appearance CLEAR (CLEAR); Bilirubin NEGATIVE (NEGATIVE); Dipstick done @ ? MAIN LAB; Glucose NEGATIVE (NEGATIVE); Ketones NEGATIVE (NEGATIVE); Nitrite NEGATIVE (NEGATIVE); Ph 5.5 (5-6); Protein,Urine Dip NEGATIVE (Negative); RBC NEGATIVE Ery/ul (0-5); Urobilinogen 0.2 mg/dL (0-1)
[2021-09-17] MEDS: Sodium Chloride 0.9% 1000 ML 1,000 ML IV SCH ×2 (14:54→22:17)
[2021-09-17] MEDS: Hydromorphone 1 mg/ml Injection IV PRN ×5 (14:59→23:42)
[2021-09-17 15:01] LABS: Amphetamine,Urine NEGATIVE (NEGATIVE); Barbiturate,Urine NEGATIVE (NEGATIVE); Benzodiazepine,Urine NEGATIVE (NEGATIVE); Cocaine,Urine NEGATIVE (NEGATIVE); Methadone,Urine NEGATIVE (NEGATIVE); Opiate,Urine NEGATIVE (NEGATIVE); PCP,Urine NEGATIVE (NEGATIVE); THC,Urine NEGATIVE (NEGATIVE)
[2021-09-17 15:19] LABS: INFLUENZA A NEGATIVE (NEGATIVE); INFLUENZA B NEGATIVE (NEGATIVE); RESPIRATORY SYNCTIAL VIRUS NEGATIVE (Negative); SARS-CoV-2 Xpert Express NEGATIVE (NEGATIVE); Urine Cultured Indicated? YES
[2021-09-17 15:31] LABS: Appearance CLEAR (CLEAR); Bilirubin NEGATIVE (NEGATIVE); Glucose NEGATIVE (NEGATIVE); Ketones NEGATIVE (NEGATIVE); Mucus SLIGHT /HPF (NEGATIVE); RBC NEGATIVE Ery/ul (0-5)
[2021-09-17 15:32] LABS: Dipstick done @ ? MAIN LAB; Nitrite NEGATIVE (NEGATIVE); Ph 5.5 (5-6); Protein,Urine Dip NEGATIVE (Negative); Urine Cultured Indicated? ORDERED SEPARATELY; Urobilinogen 0.2 mg/dL (0-1)
--- NOTE | 2021-09-17 17:12 | PCM.CONS ---
Podiatry HPI - Consult Consulting Provider: ADALGISA CORTEZ DPM - HPI History of Present Illness: Janak is a very pleasant 80-year-old female who presents today with admission for syncopal episode resulting in traumatic fracture of left ankle. Patient indicates that she was diagnosed with a sinus infection and started on a Z-Neymar and a Medrol Dosepak yesterday. She indicates that she became nauseous and was heading to the restroom where she had a momentary syncopal episode. Patient indicates that when she hit the floor she was awake. Patient presented to the emergency department with pain to her left ankle. She does have a positive subjective history of SLE/sarcoidosis, rheumatoid arthritis and type 2 diabetes with hemoglobin A1c approximately at 5.5 per patient's recollection. She currently denies any constitutional symptoms of infection. On presentation patient was provided Dilaudid and is in minimal complaints of pain with ice pack on dorsal aspect of posterior splint. She denies any other pedal complaints at this time Medications & Allergies Home Medications: Home Medication List Aspirin EC 81 mg [Ecotrin 81 mg] 81 mg PO DAILY 04/11/17 [History Confirmed 09/17/21] Atorvastatin Calcium [Lipitor 20MG Tablet] 10 mg PO HS 04/11/17 [History Confirmed 09/17/21] Carvedilol 6.25 mg [Coreg 6.25 MG] 3.125 mg PO BID 04/11/17 [History Confirmed 09/17/21] Folic Acid 800 mcg PO DAILY 04/11/17 [History Confirmed 09/17/21] Gabapentin [Neurontin] 400 mg PO TID 04/11/17 [History Confirmed 09/17/21] predniSONE [Prednisone] 5 mg PO DAILY PRN PRN 05/26/19 [History Confirmed 09/17/21] Alendronate Sodium 70 mg [Fosamax 70 MG] 70 mg PO Q7D@0600 09/17/21 [History Confirmed 09/17/21] Cyanocobalamin (Vitamin B-12) [Vitamin B12] 2,500 mcg PO DAILY 09/17/21 [History Confirmed 09/17/21] Furosemide 40 mg [Lasix 40 MG] 40 mg PO DAILY 09/17/21 [History Confirmed 09/17/21] Golimumab [Simponi Aria] 50 mg IM UD 09/17/21 [History Confirmed 09/17/21] HydrALAzine HCL 25 MG TAB [Apresoline 25 MG TABLET] 25 mg PO TID 09/17/21 [History Confirmed 09/17/21] Isosorbide Mononitrate [Isosorbide Mononitrate ER] 60 mg PO DAILY 09/17/21 [History Confirmed 09/17/21] Losartan Potassium 50 mg [Cozaar 50 MG] 50 mg PO BID 09/17/21 [History Confirmed 09/17/21] Metformin HCl Xr 500 mg [Glucophage XR 500 MG] 500 mg PO BID 09/17/21 [History Confirmed 09/17/21] [place]-3 Fatty Acids/Fish Oil [Fish Oil 1,000 mg Capsule] 1 tab PO DAILY 09/17/21 [History Confirmed 09/17/21] Potassium Chloride 10 meq PO BID 09/17/21 [History Confirmed 09/17/21] Allergies/Adverse Reactions: Allergies Allergy/AdvReac Type Severity Reaction Status Date / Time No Known Drug Allergies Allergy Verified 09/17/21 12:13 - Past Medical History Past Medical History: Yes Neurological History: No Pertinent History ENT History: Cataracts Cardiac History: Hypertension Respiratory History: No Pertinent History Endocrine Medical History: Diabetes Type II Musculoskelatal History: Osteoarthritis GI Medical History: No Pertinent History History: Other Pyscho-Social History: No Pertinent History Reproductive Disorders: No Pertinent History Comment: LUPUS, SJOGREN'S, B LE EDEMA. TAIL BONE FRACTURE. - Female History Are you now?: No - Past Surgical History Past Surgical History: Yes Neuro Surgical History: No Pertinent History Cardiac History: Cardiac Catheterization Respiratory Surgery: No Pertinent History GI Surgical History: Cholecystectomy Genitourinary Surgical Hx: Other Musculskeletal Surgical Hx: No Pertinent History Female Surgical History: Hysterectomy Other Surgical History: bladder suspension - Social History Smoking Status: Never smoker Exposure to second hand smoke: No Alcohol: None Drug Use: none Significant Family History: no pertinent family hx Physical Exam - General General Appearance: no apparent distress (Vascular exam: DP and PT pulses are palpable to the bilateral lower extremity. Capillary refill time is less than 3 seconds to the bilateral lower extremity. There is ecchymosis and erythema along with edema to the left lower extremity in comparison to the right consistent with traumatic injury.), alert - Neuro Neurologic: Epicritic and protopathic - Vascular Peripheral Pulses: Posterior tibialis: 2+, Dorsalis-Pedis: 2+ Capillary Refill Time: < 3 seconds Hair Growth: Symmetrical and Bilateral Varicosities: Negtive Edema: None Skin: Supple, not atrophic Skin Temperature: Warm to touch - Narrative Narrative Physical Exam: Vascular exam: DP and PT pulses are palpable to the bilateral lower extremity. Capillary refill time is less than 3 seconds to the bilateral lower extremity. There is ecchymosis and erythema along with edema to the left lower extremity in comparison to the right consistent with traumatic injury. No open lesions. No cicatrix noted. No cellulitis, no lymphangitis, no lymphadenopathy on palpation of the popliteal or inguinal lymph nodes. No pain with compression to calf. No pain with passive dorsiflexion of digits. Dermatological exam: Limited at this time at bedside secondary to posterior splint with sugar tong applied to left lower extremity however ecchymosis and bruising to the lateral aspect of the left lower extremity extending into the foot on presentation in the ED. Significant edema at this time Neurologic: Protopathic and epicritic sensations are intact at this time. Garrochales test performed at bedside demonstrating 10 out of 10 to the bilateral lower extremity for protective sensation. Reflexes intact to the right lower extremity Musculoskeletal largely deferred. Patient is able to wiggle toes without pain. Digital contractures noted to digits 1 through 5 likely secondary to history of rheumatoid arthritis. Results - Labs Lab/Micro Results: Lab Results-Last 24 Hours 09/17/21 09/17/21 09/17/21 Range/Units 11:05 11:05 11:05 WBC 12.5 H (4.0-10.5) K/mm3 RBC 4.04 L (4.1-5.4) M/mm3 Hgb 13.0 (12.0-16.0) gm/dl Hct 39.0 (35-47) % MCV 96.5 (78-100) fl MCH 32.2 H (26-32) pg MCHC 33.3 (32-36) g/dl RDW 13.1 (11.5-14.0) % Plt Count 235 (150-450) K/mm3 MPV 9.8 (7.5-11.0) fl Segmented Neutrophils 66 (36.0-66.0) % Band Neutrophils 3 H (0.0-2.0) % Lymphocytes (Manual) 22 L (24-44) % Monocytes (Manual) 9 (0.0-12.0) % Toxic Granulation 1+ Platelet Estimate NORMAL (NORMAL) RBC Morphology NORMAL PT 13.2 H (9.4-12.5) SECONDS INR 1.12 (0.8-3.0) APTT 26.2 (25.1-36.5) SECONDS Sodium 138 (137-145) mmol/L Potassium 4.7 (3.5-5.1) mmol/L Chloride 104 (98-107) mmol/L Carbon Dioxide 17 L (22-30) mmol/L Anion Gap 21.2 H (5-15) MEQ/L BUN 30 H (7-17) mg/dL Creatinine 1.91 H (0.52-1.04) mg/dL Estimated GFR 27.0 ML/MIN Glucose 110 H (74-106) mg/dL POC Glucometer (74 to 106) mg/dL Calcium 9.5 (8.4-10.2) mg/dL Total Bilirubin 0.80 (0.2-1.3) mg/dL AST 42 H (14-36) U/L ALT 31 (0-35) U/L Alkaline Phosphatase 55 (38-126) U/L Troponin I (0.000-0.034) ng/mL Serum Total Protein 7.3 (6.3-8.2) g/dL Albumin 4.5 (3.5-5.0) g/dL Urinalys Dipstick Clnc Urine Color (YELLOW) Urine Appearance (CLEAR) Urine pH (5-6) Ur Specific [place] (1.005-1.025) POC Urine Protein Conf (Negative) Urine Ketones (NEGATIVE) Urine Nitrite (NEGATIVE) Urine Bilirubin (NEGATIVE) Urine Urobilinogen (0-1) mg/dL Urine Leukocytes (NEGATIVE) Urine WBC (Auto) (0-5) /HPF Urine RBC (Auto) (0-2) /HPF U Hyaline Cast (Auto) (0-2) /LPF U Epithel Cells (Auto) (FEW) /HPF Urine Bacteria (Auto) (NEGATIVE) /HPF Urine RBC (0-5) Jack/ul Urine Mucus (Auto) (NEGATIVE) /HPF Ur Culture Indicated? Urine Glucose (NEGATIVE) mg/dL Urine Opiates Level (NEGATIVE) Ur Methadone (NEGATIVE) Urine Barbiturates (NEGATIVE) Ur Phencyclidine (PCP) (NEGATIVE) Urine Amphetamine (NEGATIVE) U Benzodiazepine Level (NEGATIVE) Urine Cocaine (NEGATIVE) Urine Marijuana (THC) (NEGATIVE) Influenza Type A Ag (NEGATIVE) Influenza Type B Ag (NEGATIVE) RSV (PCR) (Negative) SARS-CoV-2 (PCR) (NEGATIVE) 09/17/21 09/17/21 09/17/21 Range/Units 11:05 12:29 12:29 WBC (4.0-10.5) K/mm3 RBC (4.1-5.4) M/mm3 Hgb (12.0-16.0) gm/dl Hct (35-47) % MCV (78-100) fl MCH (26-32) pg MCHC (32-36) g/dl RDW (11.5-14.0) % Plt Count (150-450) K/mm3 MPV (7.5-11.0) fl Segmented Neutrophils (36.0-66.0) % Band Neutrophils (0.0-2.0) % Lymphocytes (Manual) (24-44) % Monocytes (Manual) (0.0-12.0) % Toxic Granulation Platelet Estimate (NORMAL) RBC Morphology PT (9.4-12.5) SECONDS INR (0.8-3.0) APTT (25.1-36.5) SECONDS Sodium (137-145) mmol/L Potassium (3.5-5.1) mmol/L Chloride (98-107) mmol/L Carbon Dioxide (22-30) mmol/L Anion Gap (5-15) MEQ/L BUN (7-17) mg/dL Creatinine (0.52-1.04) mg/dL Estimated GFR ML/MIN Glucose (74-106) mg/dL POC Glucometer (74 to 106) mg/dL Calcium (8.4-10.2) mg/dL Total Bilirubin (0.2-1.3) mg/dL AST (14-36) U/L ALT (0-35) U/L Alkaline Phosphatase (38-126) U/L Troponin I < 0.012 (0.000-0.034) ng/mL Serum Total Protein (6.3-8.2) g/dL Albumin (3.5-5.0) g/dL Urinalys Dipstick Clnc MAIN LAB Urine Color YELLOW (YELLOW) Urine Appearance CLEAR (CLEAR) Urine pH 5.5 (5-6) Ur Specific [place] 1.010 (1.005-1.025) POC Urine Protein Conf NEGATIVE (Negative) Urine Ketones NEGATIVE (NEGATIVE) Urine Nitrite NEGATIVE (NEGATIVE) Urine Bilirubin NEGATIVE (NEGATIVE) Urine Urobilinogen 0.2 (0-1) mg/dL Urine Leukocytes NEGATIVE (NEGATIVE) Urine WBC (Auto) NONE (0-5) /HPF Urine RBC (Auto) NONE (0-2) /HPF U Hyaline Cast (Auto) 11-25 (0-2) /LPF U Epithel Cells (Auto) NONE (FEW) /HPF Urine Bacteria (Auto) NONE (NEGATIVE) /HPF Urine RBC NEGATIVE (0-5) Jack/ul Urine Mucus (Auto) (NEGATIVE) /HPF Ur Culture Indicated? YES Urine Glucose NEGATIVE (NEGATIVE) mg/dL Urine Opiates Level NEGATIVE (NEGATIVE) Ur Methadone NEGATIVE (NEGATIVE) Urine Barbiturates NEGATIVE (NEGATIVE) Ur Phencyclidine (PCP) NEGATIVE (NEGATIVE) Urine Amphetamine NEGATIVE (NEGATIVE) U Benzodiazepine Level NEGATIVE (NEGATIVE) Urine Cocaine NEGATIVE (NEGATIVE) Urine Marijuana (THC) NEGATIVE (NEGATIVE) Influenza Type A Ag (NEGATIVE) Influenza Type B Ag (NEGATIVE) RSV (PCR) (Negative) SARS-CoV-2 (PCR) (NEGATIVE) 09/17/21 09/17/21 09/17/21 Range/Units 12:29 15:01 15:17 WBC (4.0-10.5) K/mm3 RBC (4.1-5.4) M/mm3 Hgb (12.0-16.0) gm/dl Hct (35-47) % MCV (78-100) fl MCH (26-32) pg MCHC (32-36) g/dl RDW (11.5-14.0) % Plt Count (150-450) K/mm3 MPV (7.5-11.0) fl Segmented Neutrophils (36.0-66.0) % Band Neutrophils (0.0-2.0) % Lymphocytes (Manual) (24-44) % Monocytes (Manual) (0.0-12.0) % Toxic Granulation Platelet Estimate (NORMAL) RBC Morphology PT (9.4-12.5) SECONDS INR (0.8-3.0) APTT (25.1-36.5) SECONDS Sodium (137-145) mmol/L Potassium (3.5-5.1) mmol/L Chloride (98-107) mmol/L Carbon Dioxide (22-30) mmol/L Anion Gap (5-15) MEQ/L BUN (7-17) mg/dL Creatinine (0.52-1.04) mg/dL Estimated GFR ML/MIN Glucose (74-106) mg/dL POC Glucometer 130 H (74 to 106) mg/dL Calcium (8.4-10.2) mg/dL Total Bilirubin (0.2-1.3) mg/dL AST (14-36) U/L ALT (0-35) U/L Alkaline Phosphatase (38-126) U/L Troponin I (0.000-0.034) ng/mL Serum Total Protein (6.3-8.2) g/dL Albumin (3.5-5.0) g/dL Urinalys Dipstick Clnc MAIN LAB Urine Color YELLOW (YELLOW) Urine Appearance CLEAR (CLEAR) Urine pH 5.5 (5-6) Ur Specific [place] 1.010 (1.005-1.025) POC Urine Protein Conf NEGATIVE (Negative) Urine Ketones NEGATIVE (NEGATIVE) Urine Nitrite NEGATIVE (NEGATIVE) Urine Bilirubin NEGATIVE (NEGATIVE) Urine Urobilinogen 0.2 (0-1) mg/dL Urine Leukocytes NEGATIVE (NEGATIVE) Urine WBC (Auto) NONE (0-5) /HPF Urine RBC (Auto) NONE (0-2) /HPF U Hyaline Cast (Auto) 11-25 (0-2) /LPF U Epithel Cells (Auto) NONE (FEW) /HPF Urine Bacteria (Auto) NONE (NEGATIVE) /HPF Urine RBC NEGATIVE (0-5) Jack/ul Urine Mucus (Auto) SLIGHT (NEGATIVE) /HPF Ur Culture Indicated? ORDERED SEPARATELY Urine Glucose NEGATIVE (NEGATIVE) mg/dL Urine Opiates Level (NEGATIVE) Ur Methadone (NEGATIVE) Urine Barbiturates (NEGATIVE) Ur Phencyclidine (PCP) (NEGATIVE) Urine Amphetamine (NEGATIVE) U Benzodiazepine Level (NEGATIVE) Urine Cocaine (NEGATIVE) Urine Marijuana (THC) (NEGATIVE) Influenza Type A Ag NEGATIVE (NEGATIVE) Influenza Type B Ag NEGATIVE (NEGATIVE) RSV (PCR) NEGATIVE (Negative) SARS-CoV-2 (PCR) NEGATIVE (NEGATIVE) 09/17/21 Range/Units 15:40 WBC (4.0-10.5) K/mm3 RBC (4.1-5.4) M/mm3 Hgb (12.0-16.0) gm/dl Hct (35-47) % MCV (78-100) fl MCH (26-32) pg MCHC (32-36) g/dl RDW (11.5-14.0) % Plt Count (150-450) K/mm3 MPV (7.5-11.0) fl Segmented Neutrophils (36.0-66.0) % Band Neutrophils (0.0-2.0) % Lymphocytes (Manual) (24-44) % Monocytes (Manual) (0.0-12.0) % Toxic Granulation Platelet Estimate (NORMAL) RBC Morphology PT (9.4-12.5) SECONDS INR (0.8-3.0) APTT (25.1-36.5) SECONDS Sodium (137-145) mmol/L Potassium (3.5-5.1) mmol/L Chloride (98-107) mmol/L Carbon Dioxide (22-30) mmol/L Anion Gap (5-15) MEQ/L BUN (7-17) mg/dL Creatinine (0.52-1.04) mg/dL Estimated GFR ML/MIN Glucose (74-106) mg/dL POC Glucometer (74 to 106) mg/dL Calcium (8.4-10.2) mg/dL Total Bilirubin (0.2-1.3) mg/dL AST (14-36) U/L ALT (0-35) U/L Alkaline Phosphatase (38-126) U/L Troponin I < 0.012 (0.000-0.034) ng/mL Serum Total Protein (6.3-8.2) g/dL Albumin (3.5-5.0) g/dL Urinalys Dipstick Clnc Urine Color (YELLOW) Urine Appearance (CLEAR) Urine pH (5-6) Ur Specific [place] (1.005-1.025) POC Urine Protein Conf (Negative) Urine Ketones (NEGATIVE) Urine Nitrite (NEGATIVE) Urine Bilirubin (NEGATIVE) Urine Urobilinogen (0-1) mg/dL Urine Leukocytes (NEGATIVE) Urine WBC (Auto) (0-5) /HPF Urine RBC (Auto) (0-2) /HPF U Hyaline Cast (Auto) (0-2) /LPF U Epithel Cells (Auto) (FEW) /HPF Urine Bacteria (Auto) (NEGATIVE) /HPF Urine RBC (0-5) Jack/ul Urine Mucus (Auto) (NEGATIVE) /HPF Ur Culture Indicated? Urine Glucose (NEGATIVE) mg/dL Urine Opiates Level (NEGATIVE) Ur Methadone (NEGATIVE) Urine Barbiturates (NEGATIVE) Ur Phencyclidine (PCP) (NEGATIVE) Urine Amphetamine (NEGATIVE) U Benzodiazepine Level (NEGATIVE) Urine Cocaine (NEGATIVE) Urine Marijuana (THC) (NEGATIVE) Influenza Type A Ag (NEGATIVE) Influenza Type B Ag (NEGATIVE) RSV (PCR) (Negative) SARS-CoV-2 (PCR) (NEGATIVE) Accuchecks Date 09/17/21 Time 15:04 - Radiology Impressions Radiology Exams & Impressions: Radiology Procedures Category Date Time Status ANKLE (2V) Stat Exams 09/17/21 14:10 Taken ANKLE (3 VIEWS) Stat Exams 09/17/21 13:18 Taken CHEST 1 VIEW (PORTABLE) Stat Exams 09/17/21 12:03 Taken HEAD WITHOUT CONTRAST [CT] Stat Exams 09/17/21 12:04 Taken Assessment/Plan (1) Trimalleolar fracture of left ankle Current Visit: Yes Status: Acute Assessment & Plan: Initial patient examination evaluation. Radiographs reviewed and discussed with patient demonstrating significant trimalleolar fracture with syndesmotic disruption. This is a severe injury and does require surgical intervention in order to ambulate normally once again. Patient is community ambulator. Patient does have palpable pulses however complicated medical history including diabetes, rheumatoid arthritis and SLE. Concerns for microvasculature occlusions and potential of delayed healing therefore arterial ultrasound will be obtained to the bilateral lower extremity to assess for any occlusions and potentiate wound healing. We will obtain a CT scan without contrast of the left ankle in order to assess the degree of fracture. Obvious that there is a medial malleolar a type C Rosas fibular fracture and a posterior malleolus fracture that are largely displaced CT scan will be tremendously beneficial in ensuring quality reduction. Nonweightbearing left lower extremity Keep posterior splint with sugar tong clean dry and intact. Patient does have palpable pulses however ice behind the knee not directly over ankle to prevent any vasoconstriction of blood vessels directly in traumatic injury site. DVT prophylaxis. Pain prophylaxis. Tentative plan will be for surgical intervention on Sunday09/20/2021. N.p.o. 8 hours prior to procedure earlier start time will be 1200 Plan will be for open reduction internal fixation of left ankle trimalleolar fracture with syndesmotic reduction, possible application of external fixator Will follow closely Code(s): S82.852A - DISPLACED TRIMALLEOLAR FRACTURE OF LEFT LOWER LEG, INIT (2) Ankle syndesmosis disruption Current Visit: Yes Status: Acute Code(s): S93.439A - SPRAIN OF TIBIOFIBULAR LIGAMENT OF UNSP ANKLE, INIT ENCNTR (3) Pain in left ankle and joints of left foot Current Visit: Yes Status: Acute Code(s): M25.572 - PAIN IN LEFT ANKLE AND JOINTS OF LEFT FOOT (4) Risk for falls Current Visit: Yes Status: Acute Code(s): Z91.81 - HISTORY OF FALLING (5) Pyelonephritis due to Escherichia coli Current Visit: No Status: Acute Code(s): N12 - TUBULO-INTERSTITIAL NEPHRITIS, NOT SPCF ACUTE OR CHRONIC; B96.20 - UNSP ESCHERICHIA COLI THE CAUSE OF DISEASES CLASSD ELSWHR (6) Gastroenteritis Current Visit: No Status: Acute Code(s): K52.9 - NONINFECTIVE GASTROE NTERITIS AND COLITIS, UNSPECIFIED (7) Ankle fracture, left Current Visit: Yes Status: Acute Code(s): S82.892A - OTH FRACTURE OF LEFT LOWER LEG, INIT FOR CLOS FX (8) COPD exacerbation Current Visit: No Status: Acute Code(s): J44.1 - CHRONIC OBSTRUCTIVE PULMONARY DISEASE W (ACUTE) EXACERBATION (9) Fever Current Visit: No Status: Acute Code(s): R50.9 - FEVER, UNSPECIFIED (10) UTI (urinary tract infection) Current Visit: No Status: Resolved Code(s): N39.0 - URINARY TRACT INFECTION, SITE NOT SPECIFIED (11) Cellulitis of right forearm Current Visit: No Status: Acute Code(s): L03.113 - CELLULITIS OF RIGHT UPPER LIMB (12) Failure of outpatient treatment Current Visit: No Status: Acute Code(s): Z78.9 - OTHER SPECIFIED HEALTH STATUS (13) Fall Current Visit: No Status: Acute Qualifiers: Code(s): W19.XXXA - UNSPECIFIED FALL, INITIAL ENCOUNTER (14) DVT prophylaxis Current Visit: No Status: Acute Code(s): [id number] - (15) Sepsis due to coliform organism Current Visit: No Status: Resolved Code(s): A41.59 - OTHER GRAM-NEGATIVE SEPSIS (16) Hypoxia Current Visit: No Status: Acute Code(s): R09.02 - HYPOXEMIA
--- NOTE | 2021-09-17 17:13 | PCM.HP ---
History of Present Illness - Chief Complaint Chief Complaint: FRACTURED L ANKLE History of Present Illness: is a 80 year old female.had a syncopal episode after becoming nauseated in her living room before arrival. Pt has an obvious L ankle fracture. She denies focal weakness/vomiting/fever/chest pain/abdominal pain/BECERRA/melena/hematochezia/cough. Timing/Duration: other (Before arrival) Severity: moderate Modifying Factors: Improves With: movement. Worsens With: cold therapy, eating, immobilization, medication, rest, acetaminophen, ibuprofen, nothing - Review of Systems Constitutional: No Fever, No Chills Eyes: No Symptoms Ears, Nose, & Throat: No Symptoms Respiratory: No Cough, No Short Of Breath Cardiac: No Chest Pain, No Edema, No Syncope Abdominal/Gastrointestinal: No Abdominal Pain, No Nausea, No Vomiting, No Diarrhea Genitourinary Symptoms: No Dysuria Musculoskeletal: Deformity, Fall, Joint Pain, Joint Swelling, No Back Pain, No Neck Pain Skin: No Rash Neurological: Dizziness, No Focal Weakness, No Sensory Changes Psychological: No Symptoms Endocrine: No Symptoms Hematologic/Lymphatic: No Symptoms Immunological/Allergic: No Symptoms Medications & Allergies Home Medications: Home Medication List Aspirin EC 81 mg [Ecotrin 81 mg] 81 mg PO DAILY 04/11/17 [History Confirmed 09/17/21] Atorvastatin Calcium [Lipitor 20MG Tablet] 10 mg PO HS 04/11/17 [History Confirmed 09/17/21] Carvedilol 6.25 mg [Coreg 6.25 MG] 3.125 mg PO BID 04/11/17 [History Confirmed 09/17/21] Folic Acid 800 mcg PO DAILY 04/11/17 [History Confirmed 09/17/21] Gabapentin [Neurontin] 400 mg PO TID 04/11/17 [History Confirmed 09/17/21] predniSONE [Prednisone] 5 mg PO DAILY PRN PRN 05/26/19 [History Confirmed 09/17/21] Alendronate Sodium 70 mg [Fosamax 70 MG] 70 mg PO Q7D@0600 09/17/21 [Hi story Confirmed 09/17/21] Cyanocobalamin (Vitamin B-12) [Vitamin B12] 2,500 mcg PO DAILY 09/17/21 [History Confirmed 09/17/21] Furosemide 40 mg [Lasix 40 MG] 40 mg PO DAILY 09/17/21 [History Confirmed 09/17/21] Golimumab [Simponi Aria] 50 mg IM UD 09/17/21 [History Confirmed 09/17/21] HydrALAzine HCL 25 MG TAB [Apresoline 25 MG TABLET] 25 mg PO TID 09/17/21 [History Confirmed 09/17/21] Isosorbide Mononitrate [Isosorbide Mononitrate ER] 60 mg PO DAILY 09/17/21 [History Confirmed 09/17/21] Losartan Potassium 50 mg [Cozaar 50 MG] 50 mg PO BID 09/17/21 [History Confirmed 09/17/21] Metformin HCl Xr 500 mg [Glucophage XR 500 MG] 500 mg PO BID 09/17/21 [History Confirmed 09/17/21] [place]-3 Fatty Acids/Fish Oil [Fish Oil 1,000 mg Capsule] 1 tab PO DAILY 09/17/21 [History Confirmed 09/17/21] Potassium Chloride 10 meq PO BID 09/17/21 [History Confirmed 09/17/21] Allergies/Adverse Reactions: Allergies Allergy/AdvReac Type Severity Reaction Status Date / Time No Known Drug Allergies Allergy Verified 09/17/21 12:13 - Past Medical History Past Medical History: Yes Neurological History: No Pertinent History ENT History: Cataracts Cardiac History: Hypertension Respiratory History: No Pertinent History Endocrine Medical History: Diabetes Type II Musculoskelatal History: Osteoarthritis GI Medical History: No Pertinent History History: Other Pyscho-Social History: No Pertinent History Reproductive Disorders: No Pertinent History Comment: LUPUS, SJOGREN'S, B LE EDEMA. TAIL BONE FRACTURE. - Female History Are you now?: No - Past Surgical History Past Surgical History: Yes Neuro Surgical History: No Pertinent History Cardiac History: Cardiac Catheterization Respiratory Surgery: No Pertinent History GI Surgical History: Cholecystectomy Genitourinary Surgical Hx: Other Musculskeletal Surgical Hx: No Pertinent History Female Surgical History: Hysterectomy Other Surgical History: bladder suspension - Social History Smoking Status: Never smoker Exposure to second hand smoke: No Alcohol: None Drug Use: none Significant Family History: no pertinent family hx - Physical Exam Vital Signs: Vital Signs - 24 hr Temp Pulse Resp BP Pulse Ox 09/17/21 15:49 99.5 F 76 16 166/94 96 09/17/21 15:03 76 16 176/103 96 09/17/21 14:49 98 09/17/21 14:10 68 170/87 97 09/17/21 13:00 72 18 167/101 98 09/17/21 12:01 98.5 F 71 164/87 98 General Appearance: no apparent distress, alert Neurologic Exam: alert, oriented x 3, cooperative, normal mood/affect, nml cerebellar function, nml station & gait, sensation nml, No motor deficits Eye Exam: PERRL/EOMI, eyes nml inspection Ears, Nose, Throat Exam: normal ENT inspection, TMs normal, pharynx normal, moist mucous membranes Neck Exam: normal inspection, non-tender, supple, full range of motion Respiratory Exam: normal breath sounds, lungs clear, No respiratory distress Cardiovascular Exam: regular rate/rhythm, normal heart sounds, normal peripheral pulses Gastrointestinal/Abdomen Exam: soft, normal bowel sounds, No tenderness, No mass Back Exam: normal inspection, normal range of motion, No CVA tenderness, No vertebral tenderness Extremity Exam: normal inspection, normal range of motion, pelvis stable, joint swelling, limited range of motion Skin Exam: normal color, warm, dry, No rash Lymphatic Exam: No adenopathy Results - Labs Lab/Micro Results: Lab Results-Last 24 Hours 09/17/21 09/17/21 09/17/21 Range/Units 11:05 11:05 11:05 WBC 12.5 H (4.0-10.5) K/mm3 RBC 4.04 L (4.1-5.4) M/mm3 Hgb 13.0 (12.0-16.0) gm/dl Hct 39.0 (35-47) % MCV 96.5 (78-100) fl MCH 32.2 H (26-32) pg MCHC 33.3 (32-36) g/dl RDW 13.1 (11.5-14.0) % Plt Count 235 (150-450) K/mm3 MPV 9.8 (7.5-11.0) fl Segmented Neutrophils 66 (36.0-66.0) % Band Neutrophils 3 H (0.0-2.0) % Lymphocytes (Manual) 22 L (24-44) % Monocytes (Manual) 9 (0.0-12.0) % Toxic Granulation 1+ Platelet Estimate NORMAL (NORMAL) RBC Morphology NORMAL PT 13.2 H (9.4-12.5) SECONDS INR 1.12 (0.8-3.0) APTT 26.2 (25.1-36.5) SECONDS Sodium 138 (137-145) mmol/L Potassium 4.7 (3.5-5.1) mmol/L Chloride 104 (98-107) mmol/L Carbon Dioxide 17 L (22-30) mmol/L Anion Gap 21.2 H (5-15) MEQ/L BUN 30 H (7-17) mg/dL Creatinine 1.91 H (0.52-1.04) mg/dL Estimated GFR 27.0 ML/MIN Glucose 110 H (74-106) mg/dL POC Glucometer (74 to 106) mg/dL Calcium 9.5 (8.4-10.2) mg/dL Total Bilirubin 0.80 (0.2-1.3) mg/dL AST 42 H (14-36) U/L ALT 31 (0-35) U/L Alkaline Phosphatase 55 (38-126) U/L Troponin I (0.000-0.034) ng/mL Serum Total Protein 7.3 (6.3-8.2) g/dL Albumin 4.5 (3.5-5.0) g/dL Urinalys Dipstick Clnc Urine Color (YELLOW) Urine Appearance (CLEAR) Urine pH (5-6) Ur Specific [place] (1.005-1.025) POC Urine Protein Conf (Negative) Urine Ketones (NEGATIVE) Urine Nitrite (NEGATIVE) Urine Bilirubin (NEGATIVE) Urine Urobilinogen (0-1) mg/dL Urine Leukocytes (NEGATIVE) Urine WBC (Auto) (0-5) /HPF Urine RBC (Auto) (0-2) /HPF U Hyaline Cast (Auto) (0-2) /LPF U Epithel Cells (Auto) (FEW) /HPF Urine Bacteria (Auto) (NEGATIVE) /HPF Urine RBC (0-5) Jack/ul Urine Mucus (Auto) (NEGATIVE) /HPF Ur Culture Indicated? Urine Glucose (NEGATIVE) mg/dL Urine Opiates Level (NEGATIVE) Ur Methadone (NEGATIVE) Urine Barbiturates (NEGATIVE) Ur Phencyclidine (PCP) (NEGATIVE) Urine Amphetamine (NEGATIVE) U Benzodiazepine Level (NEGATIVE) Urine Cocaine (NEGATIVE) Urine Marijuana (THC) (NEGATIVE) Influenza Type A Ag (NEGATIVE) Influenza Type B Ag (NEGATIVE) RSV (PCR) (Negative) SARS-CoV-2 (PCR) (NEGATIVE) 09/17/21 09/17/21 09/17/21 Range/Units 11:05 12:29 12:29 WBC (4.0-10.5) K/mm3 RBC (4.1-5.4) M/mm3 Hgb (12.0-16.0) gm/dl Hct (35-47) % MCV (78-100) fl MCH (26-32) pg MCHC (32-36) g/dl RDW (11.5-14.0) % Plt Count (150-450) K/mm3 MPV (7.5-11.0) fl Segmented Neutrophils (36.0-66.0) % Band Neutrophils (0.0-2.0) % Lymphocytes (Manual) (24-44) % Monocytes (Manual) (0.0-12.0) % Toxic Granulation Platelet Estimate (NORMAL) RBC Morphology PT (9.4-12.5) SECONDS INR (0.8-3.0) APTT (25.1-36.5) SECONDS Sodium (137-145) mmol/L Potassium (3.5-5.1) mmol/L Chloride (98-107) mmol/L Carbon Dioxide (22-30) mmol/L Anion Gap (5-15) MEQ/L BUN (7-17) mg/dL Creatinine (0.52-1.04) mg/dL Estimated GFR ML/MIN Glucose (74-106) mg/dL POC Glucometer (74 to 106) mg/dL Calcium (8.4-10.2) mg/dL Total Bilirubin (0.2-1.3) mg/dL AST (14-36) U/L ALT (0-35) U/L Alkaline Phosphatase (38-126) U/L Troponin I < 0.012 (0.000-0.034) ng/mL Serum Total Protein (6.3-8.2) g/dL Albumin (3.5-5.0) g/dL Urinalys Dipstick Clnc MAIN LAB Urine Color YELLOW (YELLOW) Urine Appearance CLEAR (CLEAR) Urine pH 5.5 (5-6) Ur Specific [place] 1.010 (1.005-1.025) POC Urine Protein Conf NEGATIVE (Negative) Urine Ketones NEGATIVE (NEGATIVE) Urine Nitrite NEGATIVE (NEGATIVE) Urine Bilirubin NEGATIVE (NEGATIVE) Urine Urobilinogen 0.2 (0-1) mg/dL Urine Leukocytes NEGATIVE (NEGATIVE) Urine WBC (Auto) NONE (0-5) /HPF Urine RBC (Auto) NONE (0-2) /HPF U Hyaline Cast (Auto) 11-25 (0-2) /LPF U Epithel Cells (Auto) NONE (FEW) /HPF Urine Bacteria (Auto) NONE (NEGATIVE) /HPF Urine RBC NEGATIVE (0-5) Jack/ul Urine Mucus (Auto) (NEGATIVE) /HPF Ur Culture Indicated? YES Urine Glucose NEGATIVE (NEGATIVE) mg/dL Urine Opiates Level NEGATIVE (NEGATIVE) Ur Methadone NEGATIVE (NEGATIVE) Urine Barbiturates NEGATIVE (NEGATIVE) Ur Phencyclidine (PCP) NEGATIVE (NEGATIVE) Urine Amphetamine NEGATIVE (NEGATIVE) U Benzodiazepine Level NEGATIVE (NEGATIVE) Urine Cocaine NEGATIVE (NEGATIVE) Urine Marijuana (THC) NEGATIVE (NEGATIVE) Influenza Type A Ag (NEGATIVE) Influenza Type B Ag (NEGATIVE) RSV (PCR) (Negative) SARS-CoV-2 (PCR) (NEGATIVE) 09/17/21 09/17/21 09/17/21 Range/Units 12:29 15:01 15:17 WBC (4.0-10.5) K/mm3 RBC (4.1-5.4) M/mm3 Hgb (12.0-16.0) gm/dl Hct (35-47) % MCV (78-100) fl MCH (26-32) pg MCHC (32-36) g/dl RDW (11.5-14.0) % Plt Count (150-450) K/mm3 MPV (7.5-11.0) fl Segmented Neutrophils (36.0-66.0) % Band Neutrophils (0.0-2.0) % Lymphocytes (Manual) (24-44) % Monocytes (Manual) (0.0-12.0) % Toxic Granulation Platelet Estimate (NORMAL) RBC Morphology PT (9.4-12.5) SECONDS INR (0.8-3.0) APTT (25.1-36.5) SECONDS Sodium (137-145) mmol/L Potassium (3.5-5.1) mmol/L Chloride (98-107) mmol/L Carbon Dioxide (22-30) mmol/L Anion Gap (5-15) MEQ/L BUN (7-17) mg/dL Creatinine (0.52-1.04) mg/dL Estimated GFR ML/MIN Glucose (74-106) mg/dL POC Glucometer 130 H (74 to 106) mg/dL Calcium (8.4-10.2) mg/dL Total Bilirubin (0.2-1.3) mg/dL AST (14-36) U/L ALT (0-35) U/L Alkaline Phosphatase (38-126) U/L Troponin I (0.000-0.034) ng/mL Serum Total Protein (6.3-8.2) g/dL Albumin (3.5-5.0) g/dL Urinalys Dipstick Clnc MAIN LAB Urine Color YELLOW (YELLOW) Urine Appearance CLEAR (CLEAR) Urine pH 5.5 (5-6) Ur Specific [place] 1.010 (1.005-1.025) POC Urine Protein Conf NEGATIVE (Negative) Urine Ketones NEGATIVE (NEGATIVE) Urine Nitrite NEGATIVE (NEGATIVE) Urine Bilirubin NEGATIVE (NEGATIVE) Urine Urobilinogen 0.2 (0-1) mg/dL Urine Leukocytes NEGATIVE (NEGATIVE) Urine WBC (Auto) NONE (0-5) /HPF Urine RBC (Auto) NONE (0-2) /HPF U Hyaline Cast (Auto) 11-25 (0-2) /LPF U Epithel Cells (Auto) NONE (FEW) /HPF Urine Bacteria (Auto) NONE (NEGATIVE) /HPF Urine RBC NEGATIVE (0-5) Jack/ul Urine Mucus (Auto) SLIGHT (NEGATIVE) /HPF Ur Culture Indicated? ORDERED SEPARATELY Urine Glucose NEGATIVE (NEGATIVE) mg/dL Urine Opiates Level (NEGATIVE) Ur Methadone (NEGATIVE) Urine Barbiturates (NEGATIVE) Ur Phencyclidine (PCP) (NEGATIVE) Urine Amphetamine (NEGATIVE) U Benzodiazepine Level (NEGATIVE) Urine Cocaine (NEGATIVE) Urine Marijuana (THC) (NEGATIVE) Influenza Type A Ag NEGATIVE (NEGATIVE) Influenza Type B Ag NEGATIVE (NEGATIVE) RSV (PCR) NEGATIVE (Negative) SARS-CoV-2 (PCR) NEGATIVE (NEGATIVE) 09/17/21 Range/Units 15:40 WBC (4.0-10.5) K/mm3 RBC (4.1-5.4) M/mm3 Hgb (12.0-16.0) gm/dl Hct (35-47) % MCV (78-100) fl MCH (26-32) pg MCHC (32-36) g/dl RDW (11.5-14.0) % Plt Count (150-450) K/mm3 MPV (7.5-11.0) fl Segmented Neutrophils (36.0-66.0) % Band Neutrophils (0.0-2.0) % Lymphocytes (Manual) (24-44) % Monocytes (Manual) (0.0-12.0) % Toxic Granulation Platelet Estimate (NORMAL) RBC Morphology PT (9.4-12.5) SECONDS INR (0.8-3.0) APTT (25.1-36.5) SECONDS Sodium (137-145) mmol/L Potassium (3.5-5.1) mmol/L Chloride (98-107) mmol/L Carbon Dioxide (22-30) mmol/L Anion Gap (5-15) MEQ/L BUN (7-17) mg/dL Creatinine (0.52-1.04) mg/dL Estimated GFR ML/MIN Glucose (74-106) mg/dL POC Glucometer (74 to 106) mg/dL Calcium (8.4-10.2) mg/dL Total Bilirubin (0.2-1.3) mg/dL AST (14-36) U/L ALT (0-35) U/L Alkaline Phosphatase (38-126) U/L Troponin I < 0.012 (0.000-0.034) ng/mL Serum Total Protein (6.3-8.2) g/dL Albumin (3.5-5.0) g/dL Urinalys Dipstick Clnc Urine Color (YELLOW) Urine Appearance (CLEAR) Urine pH (5-6) Ur Specific [place] (1.005-1.025) POC Urine Protein Conf (Negative) Urine Ketones (NEGATIVE) Urine Nitrite (NEGATIVE) Urine Bilirubin (NEGATIVE) Urine Urobilinogen (0-1) mg/dL Urine Leukocytes (NEGATIVE) Urine WBC (Auto) (0-5) /HPF Urine RBC (Auto) (0-2) /HPF U Hyaline Cast (Auto) (0-2) /LPF U Epithel Cells (Auto) (FEW) /HPF Urine Bacteria (Auto) (NEGATIVE) /HPF Urine RBC (0-5) Jack/ul Urine Mucus (Auto) (NEGATIVE) /HPF Ur Culture Indicated? Urine Glucose (NEGATIVE) mg/dL Urine Opiates Level (NEGATIVE) Ur Methadone (NEGATIVE) Urine Barbiturates (NEGATIVE) Ur Phencyclidine (PCP) (NEGATIVE) Urine Amphetamine (NEGATIVE) U Benzodiazepine Level (NEGATIVE) Urine Cocaine (NEGATIVE) Urine Marijuana (THC) (NEGATIVE) Influenza Type A Ag (NEGATIVE) Influenza Type B Ag (NEGATIVE) RSV (PCR) (Negative) SARS-CoV-2 (PCR) (NEGATIVE) Accuchecks Date 09/17/21 Time 15:04 - Radiology Impressions Radiology Exams & Impressions: Radiology Procedures Category Date Time Status ANKLE (2V) Stat Exams 09/17/21 14:10 Taken ANKLE (3 VIEWS) Stat Exams 09/17/21 13:18 Taken CHEST 1 VIEW (PORTABLE) Stat Exams 09/17/21 12:03 Taken HEAD WITHOUT CONTRAST [CT] Stat Exams 09/17/21 12:04 Taken
--- NOTE | 2021-09-17 20:46 | XRAY ---
Indication: Syncope. Status post fall. Multiple contiguous axial images obtained through the head without contrast. Comparison: February 18, 2020. Again age-appropriate global atrophy with minimal periventricular degenerative micro-ischemia bilaterally. No acute intracranial hemorrhage, abnormal extra-axial fluid collection, or mass effect. Fourth ventricle is midline without hydrocephalus. Bony calvarium intact. Visualized paranasal sinuses and mastoid are cells are clear. Impression: Nonacute senile brain. Comment: Preliminary interpretation made by [facility]. No critical discrepancy.
--- NOTE | 2021-09-17 20:48 | XRAY ---
Indication: Syncope. Comparison: May 26, 2019. Portable chest remains hyperinflated and clear. Heart not enlarged again with incidental prominent right epicardiac fat. Bony thorax intact again with mild osteopenia and degenerative changes. Impression: Continued nonacute chest with chronic features.
--- NOTE | 2021-09-17 20:50 | XRAY ---
Indication: Trauma following fall. Comparison: None 3 view left ankle demonstrates displaced medial/posterior malleolus fractures and mildly angulated distal fibula shaft fracture with soft tissue swelling. Also talus subluxation posterior laterally. Incidental osteopenia and tiny heel spurs. Remaining ankle unremarkable.
--- NOTE | 2021-09-17 20:52 | XRAY ---
Indication: Post reduction. Comparison: None AP/lateral left ankle demonstrates new posterior splint material. Remaining ankle unchanged again with displaced medial/posterior malleolus fractures, valgus angulated fibula shaft fracture, posterior lateral subluxed talus, tiny spurs, and osteopenia.
--- NOTE | 2021-09-17 21:02 | XRAY ---
Indication: Fracture following fall. Multiple contiguous images obtained through the left ankle. Sagittal and coronal reformatted images obtained. Comparison: Same day left ankle radiograph. Osseous structures demineralized consistent with patient's age. There are displaced medial and posterior malleolus fractures with tiny fracture fragments. Also mild posterior lateral angulated comminuted fracture distal shaft fibula. Talus is subluxed posteriorly laterally. Incidental tiny posterior/plantar spurs. Diffuse soft tissue swelling. Mild scattered vascular calcifications. Remaining visualized noncontrasted soft tissues unremarkable. Impression: 1. Fractures of the medial/posterior malleolus and distal fibula shaft with soft tissue swelling as detailed. 2. Posterior lateral subluxed talus. 3. Incidental osteopenia and tiny heel spurs. Comment: Preliminary interpretation made by [facility]. No critical discrepancy.
[2021-09-17] MEDS ORDERED: Cozaar 50 MG PO ONE (22:00)
[2021-09-17] MEDS ORDERED: LIPITOR 40MG PO ONE (22:00)
[2021-09-17] MEDS ORDERED: Apresoline 25 MG TABLET PO ONE (22:00)
[2021-09-17] MEDS ORDERED: Neurontin 400 MG PO ONE (22:00)
[2021-09-17] MEDS ORDERED: Klor Con 10 MEQ PO ONE (22:00)
[2021-09-17] MEDS ORDERED: Coreg 6.25 MG PO ONE (22:00)
[2021-09-17] MEDS ORDERED: Ecotrin 325 MG PO SCH (22:00)
[2021-09-17] MEDS ORDERED: Zocor 10MG ONE (22:08)
[2021-09-18] MEDS: Hydromorphone 1 mg/ml Injection IV PRN ×5 (04:52→21:04)
[2021-09-18 05:52] LABS: ALBUMIN 3.7 g/dL (3.5-5.0); ANION GAP 14.3 MEQ/L (5-15); BILIRUBIN,TOTAL 0.7 mg/dL (0.2-1.3); Calcium 8.2 mg/dL (8.4-10.2); Creatinine 1 1.73 mg/dL (0.52-1.04); EST GLOMERULAR FILTRATION RATE 30.3 ML/MIN; Potassium 4.1 mmol/L (3.5-5.1); Total Protein 6.2 g/dL (6.3-8.2)
[2021-09-18] MEDS ORDERED: Zocor 10MG PO ONE (08:00)
--- NOTE | 2021-09-18 08:27 | PCM.NOTE ---
Date and Time: 09/18/21824 Subjective Assessment: doing ok - Review of Systems Constitutional: No Fever, No Chills Eyes: No Symptoms Ears, Nose, & Throat: No Symptoms Respiratory: No Cough, No Short Of Breath Cardiac: No Chest Pain, No Edema, No Syncope Abdominal/Gastrointestinal: No Abdominal Pain, No Nausea, No Vomiting, No Diarrhea Genitourinary Symptoms: No Dysuria Musculoskeletal: Deformity, Fall, No Back Pain, No Neck Pain Skin: No Rash Neurological: No Dizziness, No Focal Weakness, No Sensory Changes Psychological: No Symptoms Endocrine: No Symptoms Hematologic/Lymphatic: No Symptoms Immunological/Allergic: No Symptoms Objective Exam General Appearance: no apparent distress, alert Neurologic Exam: alert, oriented x 3, cooperative, normal mood/affect, nml cerebellar function, sensation nml, No motor deficits Skin Exam: normal color, warm, dry Eye Exam: PERRL, EOMI, eyes nml inspection Ears, Nose, Throat Exam: normal ENT inspection, pharynx normal, moist mucous membranes Neck Exam: normal inspection, non-tender, supple, full range of motion Respiratory Exam: normal breath sounds, lungs clear, No respiratory distress Cardiovascular Exam: regular rate/rhythm, normal heart sounds Gastrointestinal/Abdomen Exam: soft, No tenderness, No mass Extremity Exam: normal inspection, normal range of motion Back Exam: normal inspection, normal range of motion, No CVA tenderness, No vertebral tenderness Pelvic Exam: deferred Rectal Exam: deferred OBJECTIVE DATA Vital Signs: Vital Signs - 24 hr Temp Pulse Resp BP Pulse Ox 09/18/21 07:48 97 09/18/21 05:20 98 09/18/21 04:00 98.7 F 80 17 144/65 82 L 09/18/21 00:00 98.0 F 69 15 178/72 97 09/17/21 22:45 98 09/17/21 19:59 98.7 F 80 17 154/68 92 L 09/17/21 16:00 99.5 F 76 24 166/94 95 09/17/21 15:49 99.5 F 76 16 166/94 96 09/17/21 15:03 76 16 176/103 96 09/17/21 14:10 68 170/87 97 09/17/21 13:00 72 18 167/101 98 09/17/21 12:01 98.5 F 71 164/87 98 Pain Assessment - Last Documented Pain Intensity 4 Pain Scale Used 0-10 Pain Scale Intake and Output: Intake & Output 09/15/21 09/16/21 09/17/21 09/18/21 11:59 11:59 11:59 11:59 Intake Total 1563 Output Total 700 Balance 863 Weight 77 kg Lab Results: Lab Results-Last 24 Hours 09/17/21 09/17/21 09/17/21 Range/Units 11:05 11:05 11:05 WBC 12.5 H (4.0-10.5) K/mm3 RBC 4.04 L (4.1-5.4) M/mm3 Hgb 13.0 (12.0-16.0) gm/dl Hct 39.0 (35-47) % MCV 96.5 (78-100) fl MCH 32.2 H (26-32) pg MCHC 33.3 (32-36) g/dl RDW 13.1 (11.5-14.0) % Plt Count 235 (150-450) K/mm3 MPV 9.8 (7.5-11.0) fl Segmented Neutrophils 66 (36.0-66.0) % Band Neutrophils 3 H (0.0-2.0) % Lymphocytes (Manual) 22 L (24-44) % Monocytes (Manual) 9 (0.0-12.0) % Toxic Granulation 1+ Platelet Estimate NORMAL (NORMAL) RBC Morphology NORMAL PT 13.2 H (9.4-12.5) SECONDS INR 1.12 (0.8-3.0) APTT 26.2 (25.1-36.5) SECONDS Sodium 138 (137-145) mmol/L Potassium 4.7 (3.5-5.1) mmol/L Chloride 104 (98-107) mmol/L Carbon Dioxide 17 L (22-30) mmol/L Anion Gap 21.2 H (5-15) MEQ/L BUN 30 H (7-17) mg/dL Creatinine 1.91 H (0.52-1.04) mg/dL Estimated GFR 27.0 ML/MIN Glucose 110 H (74-106) mg/dL POC Glucometer (74 to 106) mg/dL Calcium 9.5 (8.4-10.2) mg/dL Total Bilirubin 0.80 (0.2-1.3) mg/dL AST 42 H (14-36) U/L ALT 31 (0-35) U/L Alkaline Phosphatase 55 (38-126) U/L Troponin I (0.000-0.034) ng/mL Serum Total Protein 7.3 (6.3-8.2) g/dL Albumin 4.5 (3.5-5.0) g/dL Urinalys Dipstick Clnc Urine Color (YELLOW) Urine Appearance (CLEAR) Urine pH (5-6) Ur Specific Howard (1.005-1.025) POC Urine Protein Conf (Negative) Urine Ketones (NEGATIVE) Urine Nitrite (NEGATIVE) Urine Bilirubin (NEGATIVE) Urine Urobilinogen (0-1) mg/dL Urine Leukocytes (NEGATIVE) Urine WBC (Auto) (0-5) /HPF Urine RBC (Auto) (0-2) /HPF U Hyaline Cast (Auto) (0-2) /LPF U Epithel Cells (Auto) (FEW) /HPF Urine Bacteria (Auto) (NEGATIVE) /HPF Urine RBC (0-5) Jack/ul Urine Mucus (Auto) (NEGATIVE) /HPF Ur Culture Indicated? Urine Glucose (NEGATIVE) mg/dL Urine Opiates Level (NEGATIVE) Ur Methadone (NEGATIVE) Urine Barbiturates (NEGATIVE) Ur Phencyclidine (PCP) (NEGATIVE) Urine Amphetamine (NEGATIVE) U Benzodiazepine Level (NEGATIVE) Urine Cocaine (NEGATIVE) Urine Marijuana (THC) (NEGATIVE) Influenza Type A Ag (NEGATIVE) Influenza Type B Ag (NEGATIVE) RSV (PCR) (Negative) SARS-CoV-2 (PCR) (NEGATIVE) 09/17/21 09/17/21 09/17/21 Range/Units 11:05 12:29 12:29 WBC (4.0-10.5) K/mm3 RBC (4.1-5.4) M/mm3 Hgb (12.0-16.0) gm/dl Hct (35-47) % MCV (78-100) fl MCH (26-32) pg MCHC (32-36) g/dl RDW (11.5-14.0) % Plt Count (150-450) K/mm3 MPV (7.5-11.0) fl Segmented Neutrophils (36.0-66.0) % Band Neutrophils (0.0-2.0) % Lymphocytes (Manual) (24-44) % Monocytes (Manual) (0.0-12.0) % Toxic Granulation Platelet Estimate (NORMAL) RBC Morphology PT (9.4-12.5) SECONDS INR (0.8-3.0) APTT (25.1-36.5) SECONDS Sodium (137-145) mmol/L Potassium (3.5-5.1) mmol/L Chloride (98-107) mmol/L Carbon Dioxide (22-30) mmol/L Anion Gap (5-15) MEQ/L BUN (7-17) mg/dL Creatinine (0.52-1.04) mg/dL Estimated GFR ML/MIN Glucose (74-106) mg/dL POC Glucometer (74 to 106) mg/dL Calcium (8.4-10.2) mg/dL Total Bilirubin (0.2-1.3) mg/dL AST (14-36) U/L ALT (0-35) U/L Alkaline Phosphatase (38-126) U/L Troponin I < 0.012 (0.000-0.034) ng/mL Serum Total Protein (6.3-8.2) g/dL Albumin (3.5-5.0) g/dL Urinalys Dipstick Clnc MAIN LAB Urine Color YELLOW (YELLOW) Urine Appearance CLEAR (CLEAR) Urine pH 5.5 (5-6) Ur Specific Howard 1.010 (1.005-1.025) POC Urine Protein Conf NEGATIVE (Negative) Urine Ketones NEGATIVE (NEGATIVE) Urine Nitrite NEGATIVE (NEGATIVE) Urine Bilirubin NEGATIVE (NEGATIVE) Urine Urobilinogen 0.2 (0-1) mg/dL Urine Leukocytes NEGATIVE (NEGATIVE) Urine WBC (Auto) NONE (0-5) /HPF Urine RBC (Auto) NONE (0-2) /HPF U Hyaline Cast (Auto) 11-25 (0-2) /LPF U Epithel Cells (Auto) NONE (FEW) /HPF Urine Bacteria (Auto) NONE (NEGATIVE) /HPF Urine RBC NEGATIVE (0-5) Jack/ul Urine Mucus (Auto) (NEGATIVE) /HPF Ur Culture Indicated? YES Urine Glucose NEGATIVE (NEGATIVE) mg/dL Urine Opiates Level NEGATIVE (NEGATIVE) Ur Methadone NEGATIVE (NEGATIVE) Urine Barbiturates NEGATIVE (NEGATIVE) Ur Phencyclidine (PCP) NEGATIVE (NEGATIVE) Urine Amphetamine NEGATIVE (NEGATIVE) U Benzodiazepine Level NEGATIVE (NEGATIVE) Urine Cocaine NEGATIVE (NEGATIVE) Urine Marijuana (THC) NEGATIVE (NEGATIVE) Influenza Type A Ag (NEGATIVE) Influenza Type B Ag (NEGATIVE) RSV (PCR) (Negative) SARS-CoV-2 (PCR) (NEGATIVE) 09/17/21 09/17/21 09/17/21 Range/Units 12:29 15:01 15:17 WBC (4.0-10.5) K/mm3 RBC (4.1-5.4) M/mm3 Hgb (12.0-16.0) gm/dl Hct (35-47) % MCV (78-100) fl MCH (26-32) pg MCHC (32-36) g/dl RDW (11.5-14.0) % Plt Count (150-450) K/mm3 MPV (7.5-11.0) fl Segmented Neutrophils (36.0-66.0) % Band Neutrophils (0.0-2.0) % Lymphocytes (Manual) (24-44) % Monocytes (Manual) (0.0-12.0) % Toxic Granulation Platelet Estimate (NORMAL) RBC Morphology PT (9.4-12.5) SECONDS INR (0.8-3.0) APTT (25.1-36.5) SECONDS Sodium (137-145) mmol/L Potassium (3.5-5.1) mmol/L Chloride (98-107) mmol/L Carbon Dioxide (22-30) mmol/L Anion Gap (5-15) MEQ/L BUN (7-17) mg/dL Creatinine (0.52-1.04) mg/dL Estimated GFR ML/MIN Glucose (74-106) mg/dL POC Glucometer 130 H (74 to 106) mg/dL Calcium (8.4-10.2) mg/dL Total Bilirubin (0.2-1.3) mg/dL AST (14-36) U/L ALT (0-35) U/L Alkaline Phosphatase (38-126) U/L Troponin I (0.000-0.034) ng/mL Serum Total Protein (6.3-8.2) g/dL Albumin (3.5-5.0) g/dL Urinalys Dipstick Clnc MAIN LAB Urine Color YELLOW (YELLOW) Urine Appearance CLEAR (CLEAR) Urine pH 5.5 (5-6) Ur Specific Howard 1.010 (1.005-1.025) POC Urine Protein Conf NEGATIVE (Negative) Urine Ketones NEGATIVE (NEGATIVE) Urine Nitrite NEGATIVE (NEGATIVE) Urine Bilirubin NEGATIVE (NEGATIVE) Urine Urobilinogen 0.2 (0-1) mg/dL Urine Leukocytes NEGATIVE (NEGATIVE) Urine WBC (Auto) NONE (0-5) /HPF Urine RBC (Auto) NONE (0-2) /HPF U Hyaline Cast (Auto) 11-25 (0-2) /LPF U Epithel Cells (Auto) NONE (FEW) /HPF Urine Bacteria (Auto) NONE (NEGATIVE) /HPF Urine RBC NEGATIVE (0-5) Jack/ul Urine Mucus (Auto) SLIGHT (NEGATIVE) /HPF Ur Culture Indicated? ORDERED SEPARATELY Urine Glucose NEGATIVE (NEGATIVE) mg/dL Urine Opiates Level (NEGATIVE) Ur Methadone (NEGATIVE) Urine Barbiturates (NEGATIVE) Ur Phencyclidine (PCP) (NEGATIVE) Urine Amphetamine (NEGATIVE) U Benzodiazepine Level (NEGATIVE) Urine Cocaine (NEGATIVE) Urine Marijuana (THC) (NEGATIVE) Influenza Type A Ag NEGATIVE (NEGATIVE) Influenza Type B Ag NEGATIVE (NEGATIVE) RSV (PCR) NEGATIVE (Negative) SARS-CoV-2 (PCR) NEGATIVE (NEGATIVE) 09/17/21 09/17/21 09/18/21 Range/Units 15:40 20:37 05:20 WBC (4.0-10.5) K/mm3 RBC (4.1-5.4) M/mm3 Hgb (12.0-16.0) gm/dl Hct (35-47) % MCV (78-100) fl MCH (26-32) pg MCHC (32-36) g/dl RDW (11.5-14.0) % Plt Count (150-450) K/mm3 MPV (7.5-11.0) fl Segmented Neutrophils (36.0-66.0) % Band Neutrophils (0.0-2.0) % Lymphocytes (Manual) (24-44) % Monocytes (Manual) (0.0-12.0) % Toxic Granulation Platelet Estimate (NORMAL) RBC Morphology PT (9.4-12.5) SECONDS INR (0.8-3.0) APTT (25.1-36.5) SECONDS Sodium 136 L (137-145) mmol/L Potassium 4.1 (3.5-5.1) mmol/L Chloride 104 (98-107) mmol/L Carbon Dioxide 22 (22-30) mmol/L Anion Gap 14.3 (5-15) MEQ/L BUN 32 H (7-17) mg/dL Creatinine 1.73 H (0.52-1.04) mg/dL Estimated GFR 30.3 ML/MIN Glucose 113 H (74-106) mg/dL POC Glucometer 126 H (74 to 106) mg/dL Calcium 8.2 L (8.4-10.2) mg/dL Total Bilirubin 0.70 (0.2-1.3) mg/dL AST 42 H (14-36) U/L ALT 29 (0-35) U/L Alkaline Phosphatase 50 (38-126) U/L Troponin I < 0.012 (0.000-0.034) ng/mL Serum Total Protein 6.2 L (6.3-8.2) g/dL Albumin 3.7 (3.5-5.0) g/dL Urinalys Dipstick Clnc Urine Color (YELLOW) Urine Appearance (CLEAR) Urine pH (5-6) Ur Specific Howard (1.005-1.025) POC Urine Protein Conf (Negative) Urine Ketones (NEGATIVE) Urine Nitrite (NEGATIVE) Urine Bilirubin (NEGATIVE) Urine Urobilinogen (0-1) mg/dL Urine Leukocytes (NEGATIVE) Urine WBC (Auto) (0-5) /HPF Urine RBC (Auto) (0-2) /HPF U Hyaline Cast (Auto) (0-2) /LPF U Epithel Cells (Auto) (FEW) /HPF Urine Bacteria (Auto) (NEGATIVE) /HPF Urine RBC (0-5) Jack/ul Urine Mucus (Auto) (NEGATIVE) /HPF Ur Culture Indicated? Urine Glucose (NEGATIVE) mg/dL Urine Opiates Level (NEGATIVE) Ur Methadone (NEGATIVE) Urine Barbiturates (NEGATIVE) Ur Phencyclidine (PCP) (NEGATIVE) Urine Amphetamine (NEGATIVE) U Benzodiazepine Level (NEGATIVE) Urine Cocaine (NEGATIVE) Urine Marijuana (THC) (NEGATIVE) Influenza Type A Ag (NEGATIVE) Influenza Type B Ag (NEGATIVE) RSV (PCR) (Negative) SARS-CoV-2 (PCR) (NEGATIVE) 09/18/21 Range/Units 07:22 WBC (4.0-10.5) K/mm3 RBC (4.1-5.4) M/mm3 Hgb (12.0-16.0) gm/dl Hct (35-47) % MCV (78-100) fl MCH (26-32) pg MCHC (32-36) g/dl RDW (11.5-14.0) % Plt Count (150-450) K/mm3 MPV (7.5-11.0) fl Segmented Neutrophils (36.0-66.0) % Band Neutrophils (0.0-2.0) % Lymphocytes (Manual) (24-44) % Monocytes (Manual) (0.0-12.0) % Toxic Granulation Platelet Estimate (NORMAL) RBC Morphology PT (9.4-12.5) SECONDS INR (0.8-3.0) APTT (25.1-36.5) SECONDS Sodium (137-145) mmol/L Potassium (3.5-5.1) mmol/L Chloride (98-107) mmol/L Carbon Dioxide (22-30) mmol/L Anion Gap (5-15) MEQ/L BUN (7-17) mg/dL Creatinine (0.52-1.04) mg/dL Estimated GFR ML/MIN Glucose (74-106) mg/dL POC Glucometer 122 H (74 to 106) mg/dL Calcium (8.4-10.2) mg/dL Total Bilirubin (0.2-1.3) mg/dL AST (14-36) U/L ALT (0-35) U/L Alkaline Phosphatase (38-126) U/L Troponin I (0.000-0.034) ng/mL Serum Total Protein (6.3-8.2) g/dL Albumin (3.5-5.0) g/dL Urinalys Dipstick Clnc Urine Color (YELLOW) Urine Appearance (CLEAR) Urine pH (5-6) Ur Specific Howard (1.005-1.025) POC Urine Protein Conf (Negative) Urine Ketones (NEGATIVE) Urine Nitrite (NEGATIVE) Urine Bilirubin (NEGATIVE) Urine Urobilinogen (0-1) mg/dL Urine Leukocytes (NEGATIVE) Urine WBC (Auto) (0-5) /HPF Urine RBC (Auto) (0-2) /HPF U Hyaline Cast (Auto) (0-2) /LPF U Epithel Cells (Auto) (FEW) /HPF Urine Bacteria (Auto) (NEGATIVE) /HPF Urine RBC (0-5) Jack/ul Urine Mucus (Auto) (NEGATIVE) /HPF Ur Culture Indicated? Urine Glucose (NEGATIVE) mg/dL Urine Opiates Level (NEGATIVE) Ur Methadone (NEGATIVE) Urine Barbiturates (NEGATIVE) Ur Phencyclidine (PCP) (NEGATIVE) Urine Amphetamine (NEGATIVE) U Benzodiazepine Level (NEGATIVE) Urine Cocaine (NEGATIVE) Urine Marijuana (THC) (NEGATIVE) Influenza Type A Ag (NEGATIVE) Influenza Type B Ag (NEGATIVE) RSV (PCR) (Negative) SARS-CoV-2 (PCR) (NEGATIVE) Radiology Exams: Radiology Procedures Category Date Time Status ANKLE (2V) Stat Exams 09/17/21 14:10 Completed ANKLE (3 VIEWS) Stat Exams 09/17/21 13:18 Completed ARTERIAL BILAT LOWER EXTREMITY [US] Routine Exams 09/19/21 Ordered ARTERIAL BILAT LOWER EXTREMITY [US] Urgent Exams 09/17/21 Stop Req CHEST 1 VIEW (PORTABLE) Stat Exams 09/17/21 12:03 Completed HEAD WITHOUT CONTRAST [CT] Stat Exams 09/17/21 12:04 Completed LOWER EXTREMITY WO CONTRAST [CT] Stat Exams 09/17/21 17:25 Completed Assessment/Plan (1) Ankle fracture, left Current Visit: Yes Status: Acute Qualifiers: Encounter type: subsequent encounter Fracture type: closed Fracture healing: with routine healing Qualified Code(s): S82.892D - Other fracture of left lower leg, subsequent encounter for closed fracture with routine healing Assessment & Plan: Chief Complaint Diagnosis FRACTURED L ANKLE Allergies Allergy/AdvReac Type Severity Reaction Status Date / Time No Known Drug Allergies Allergy Verified 09/17/21 12:13 Vital Signs (Last 24 hours) Temp Pulse Resp BP Pulse Ox 09/18/21 07:48 97 09/18/21 05:20 98 09/18/21 04:00 98.7 F 80 17 144/65 82 L 09/18/21 00:00 98.0 F 69 15 178/72 97 09/17/21 22:45 98 09/17/21 19:59 98.7 F 80 17 154/68 92 L 09/17/21 16:00 99.5 F 76 24 166/94 95 09/17/21 15:49 99.5 F 76 16 166/94 96 09/17/21 15:03 76 16 176/103 96 09/17/21 14:10 68 170/87 97 09/17/21 13:00 72 18 167/101 98 09/17/21 12:01 98.5 F 71 164/87 98 Home Medications Medication Instructions Recorded Confirmed Last Taken Type Alendronate Sodium 70 mg 70 mg PO Q7D@0600 09/17/21 09/17/21 Unknown History [Fosamax 70 MG] Cyanocobalamin (Vitamin B-12) 2,500 mcg PO DAILY 09/17/21 09/17/21 Unknown History [Vitamin B12] Furosemide 40 mg [Lasix 40 40 mg PO DAILY 09/17/21 09/17/21 Unknown History MG] Golimumab [Simponi Aria] 50 mg IM UD 09/17/21 09/17/21 Unknown History HydrALAzine HCL 25 MG TAB 25 mg PO TID 09/17/21 09/17/21 Unknown History [Apresoline 25 MG TABLET] Isosorbide Mononitrate [Isosorbide 60 mg PO DAILY 09/17/21 09/17/21 Unknown History Mononitrate ER] Losartan Potassium 50 mg 50 mg PO BID 09/17/21 09/17/21 Unknown History [Cozaar 50 MG] Metformin HCl Xr 500 mg 500 mg PO BID 09/17/21 09/17/21 Unknown History [Glucophage XR 500 MG] [place]-3 Fatty Acids/Fish Oil [Fish 1 tab PO DAILY 09/17/21 09/17/21 Unknown History Oil 1,000 mg Capsule] Potassium Chloride 10 meq PO BID 09/17/21 09/17/21 Unknown History Current Medications Generic Name Dose Route Start Last Admin Trade Name Freq PRN Reason Stop Dose Admin Aspirin 325 mg 09/17/21 22:00 09/17/21 22:14 Aspirin 325 Mg Tablet.Ec PO 10/17/21 21:59 325 mg HS HARMAN Administration Hydromorphone HCl 1 mg 09/17/21 14:36 09/18/21 04:52 Hydromorphone 1 Mg/1ml Inj 1 Mg/Ml Syringe IV 09/22/21 14:35 1 mg Q1H PRN PRN Administration PAIN Sodium Chloride 1,000 mls @ 80 mls/hr 09/17/21 14:45 09/17/21 22:17 Sodium Chloride 0.9% 1000 Ml IV 10/17/21 14:44 80 mls/hr .[id number] HARMAN Administration Insulin Human Lispro 0 unit 09/17/21 14:36 Insulin Lispro 1 Unit SQ 10/17/21 14:35 UD PRN HYPERGLYCEMIA Ondansetron HCl 4 mg 09/17/21 14:36 Ondansetron Hcl 4 Mg/2 Ml Vial IV 10/17/21 14:35 Q6H PRN PRN NAUSEA/VOMITING Discontinued Medications Generic Name Dose Route Start Last Admin Trade Name Freq PRN Reason Stop Dose Admin Atorvastatin Calcium 10 mg 09/17/21 22:00 09/17/21 22:14 Atorvastatin Calcium 40 Mg Tablet PO 09/17/21 22:01 10 mg ONCE ONE Administration Carvedilol 3.125 mg 09/17/21 22:00 09/17/21 22:15 Carvedilol 6.25 Mg Tablet PO 09/17/21 22:01 3.125 mg ONCE ONE Administration Fentanyl Citrate 50 mcg 09/17/21 12:01 09/17/21 12:04 Fentanyl Citrate 100 Mcg/2 Ml* Vial IV 09/17/21 12:02 50 mcg STAT ONE Administration Fentanyl Citrate Confirm 09/17/21 12:02 Fentanyl Citrate 100 Mcg/2 Ml* Vial Administered 09/17/21 12:03 Dose 100 mcg .ROUTE .STK-MED ONE Fentanyl Citrate 50 mcg 09/17/21 12:23 09/17/21 12:33 Fentanyl Citrate 100 Mcg/2 Ml* Vial IV 09/17/21 12:24 50 mcg STAT ONE Administration Fentanyl Citrate Confirm 09/17/21 12:27 Fentanyl Citrate 100 Mcg/2 Ml* Vial Administered 09/17/21 12:28 Dose 100 mcg .ROUTE .STK-MED ONE Gabapentin 400 mg 09/17/21 22:00 09/17/21 22:14 Gabapentin 400 Mg Capsule PO 09/17/21 22:01 400 mg ONCE ONE Administration Hydralazine HCl 25 mg 09/17/21 22:00 09/17/21 22:13 Hydralazine Hcl 25 Mg Tablet PO 09/17/21 22:01 25 mg ONCE ONE Administration Hydromorphone HCl 1 mg 09/17/21 12:57 09/17/21 12:58 Hydromorphone 1 Mg/1ml Inj 1 Mg/Ml Syringe IV 09/17/21 12:58 1 mg STAT ONE Administration Hydromorphone HCl Confirm 09/17/21 12:56 Hydromorphone 1 Mg/1ml Inj 1 Mg/Ml Syringe Administered 09/17/21 12:57 Dose 1 mg .ROUTE .STK-MED ONE Sodium Chloride 1,000 mls @ 999 mls/hr 09/17/21 13:34 09/17/21 14:39 Sodium Chloride 0.9% 1000 Ml IV 09/17/21 14:34 Infused .Q1H1M STA Infusion Sodium Chloride Confirm 09/17/21 13:34 Sodium Chloride 0.9% 1000 Ml Administered 09/17/21 13:35 Dose 1,000 mls @ ud .ROUTE .STK-MED ONE Losartan Potassium 50 mg 09/17/21 22:00 09/17/21 22:14 Losartan Potassium 50 Mg Tablet PO 09/17/21 22:01 50 mg ONCE ONE Administration Ondansetron HCl 4 mg 09/17/21 12:01 09/17/21 12:04 Ondansetron Hcl 4 Mg/2 Ml Vial IV 09/17/21 12:02 4 mg STAT ONE Administration Ondansetron HCl Confirm 09/17/21 12:02 Ondansetron Hcl 4 Mg/2 Ml Vial Administered 09/17/21 12:03 Dose 4 mg .ROUTE .STK-MED ONE Potassium Chloride 10 meq 09/17/21 22:00 09/17/21 22:15 Potassium Chloride 10 Meq Tablet PO 09/17/21 22:01 10 meq ONCE ONE Administration Simvastatin Confirm 09/17/21 22:08 Simvastatin 10 Mg Tablet Administered 09/17/21 22:09 Dose 10 mg .ROUTE .STK-MED ONE Simvastatin 10 mg 09/18/21 08:00 Simvastatin 10 Mg Tablet PO 09/18/21 08:01 ONCE ONE Intake & Output (Last 24 hours) 09/15/21 09/16/21 09/17/21 09/18/21 11:59 11:59 11:59 11:59 Intake Total 1563 Output Total 700 Balance 863 Weight 77 kg Microbiology Results (Last 24 hours) 09/17/21 15:16 Catherized Urine Culture - Pending Laboratory Results (Last 24 hours) 09/18/21 09/18/21 09/17/21 07:22 05:20 20:37 WBC RBC Hgb Hct MCV MCH MCHC RDW Plt Count MPV Segmented Neutrophils Band Neutrophils Lymphocytes (Manual) Monocytes (Manual) Toxic Granulation Platelet Estimate RBC Morphology PT INR APTT Sodium 136 L Potassium 4.1 Chloride 104 Carbon Dioxide 22 Anion Gap 14.3 BUN 32 H Creatinine 1.73 H Estimated GFR 30.3 Glucose 113 H POC Glucometer 122 H 126 H Calcium 8.2 L Total Bilirubin 0.70 AST 42 H ALT 29 Alkaline Phosphatase 50 Troponin I Serum Total Protein 6.2 L Albumin 3.7 Urinalys Dipstick Clnc Urine Color Urine Appearance Urine pH Ur Specific Howard POC Urine Protein Conf Urine Ketones Urine Nitrite Urine Bilirubin Urine Urobilinogen Urine Leukocytes Urine WBC (Auto) Urine RBC (Auto) U Hyaline Cast (Auto) U Epithel Cells (Auto) Urine Bacteria (Auto) Urine RBC Urine Mucus (Auto) Ur Culture Indicated? Urine Glucose Urine Opiates Level Ur Methadone Urine Barbiturates Ur Phencyclidine (PCP) Urine Amphetamine U Benzodiazepine Level Urine Cocaine Urine Marijuana (THC) Influenza Type A Ag Influenza Type B Ag RSV (PCR) SARS-CoV-2 (PCR) 09/17/21 09/17/21 09/17/21 15:40 15:17 15:01 WBC RBC Hgb Hct MCV MCH MCHC RDW Plt Count MPV Segmented Neutrophils Band Neutrophils Lymphocytes (Manual) Monocytes (Manual) Toxic Granulation Platelet Estimate RBC Morphology PT INR APTT Sodium Potassium Chloride Carbon Dioxide Anion Gap BUN Creatinine Estimated GFR Glucose POC Glucometer 130 H Calcium Total Bilirubin AST ALT Alkaline Phosphatase Troponin I < 0.012 Serum Total Protein Albumin Urinalys Dipstick Clnc MAIN LAB Urine Color YELLOW Urine Appearance CLEAR Urine pH 5.5 Ur Specific Howard 1.010 POC Urine Protein Conf NEGATIVE Urine Ketones NEGATIVE Urine Nitrite NEGATIVE Urine Bilirubin NEGATIVE Urine Urobilinogen 0.2 Urine Leukocytes NEGATIVE Urine WBC (Auto) NONE Urine RBC (Auto) NONE U Hyaline Cast (Auto) 11-25 U Epithel Cells (Auto) NONE Urine Bacteria (Auto) NONE Urine RBC NEGATIVE Urine Mucus (Auto) SLIGHT Ur Culture Indicated? ORDERED SEPARATELY Urine Glucose NEGATIVE Urine Opiates Level Ur Methadone Urine Barbiturates Ur Phencyclidine (PCP) Urine Amphetamine U Benzodiazepine Level Urine Cocaine Urine Marijuana (THC) Influenza Type A Ag Influenza Type B Ag RSV (PCR) SARS-CoV-2 (PCR) 09/17/21 09/17/21 09/17/21 12:29 12:29 12:29 WBC RBC Hgb Hct MCV MCH MCHC RDW Plt Count MPV Segmented Neutrophils Band Neutrophils Lymphocytes (Manual) Monocytes (Manual) Toxic Granulation Platelet Estimate RBC Morphology PT INR APTT Sodium Potassium Chloride Carbon Dioxide Anion Gap BUN Creatinine Estimated GFR Glucose POC Glucometer Calcium Total Bilirubin AST ALT Alkaline Phosphatase Troponin I Serum Total Protein Albumin Urinalys Dipstick Clnc MAIN LAB Urine Color YELLOW Urine Appearance CLEAR Urine pH 5.5 Ur Specific Howard 1.010 POC Urine Protein Conf NEGATIVE Urine Ketones NEGATIVE Urine Nitrite NEGATIVE Urine Bilirubin NEGATIVE Urine Urobilinogen 0.2 Urine Leukocytes NEGATIVE Urine WBC (Auto) NONE Urine RBC (Auto) NONE U Hyaline Cast (Auto) 11-25 U Epithel Cells (Auto) NONE Urine Bacteria (Auto) NONE Urine RBC NEGATIVE Urine Mucus (Auto) Ur Culture Indicated? YES Urine Glucose NEGATIVE Urine Opiates Level NEGATIVE Ur Methadone NEGATIVE Urine Barbiturates NEGATIVE Ur Phencyclidine (PCP) NEGATIVE Urine Amphetamine NEGATIVE U Benzodiazepine Level NEGATIVE Urine Cocaine NEGATIVE Urine Marijuana (THC) NEGATIVE Influenza Type A Ag NEGATIVE Influenza Type B Ag NEGATIVE RSV (PCR) NEGATIVE SARS-CoV-2 (PCR) NEGATIVE 09/17/21 09/17/21 09/17/21 11:05 11:05 11:05 WBC RBC Hgb Hct MCV MCH MCHC RDW Plt Count MPV Segmented Neutrophils Band Neutrophils Lymphocytes (Manual) Monocytes (Manual) Toxic Granulation Platelet Estimate RBC Morphology PT 13.2 H INR 1.12 APTT 26.2 Sodium 138 Potassium 4.7 Chloride 104 Carbon Dioxide 17 L Anion Gap 21.2 H BUN 30 H Creatinine 1.91 H Estimated GFR 27.0 Glucose 110 H POC Glucometer Calcium 9.5 Total Bilirubin 0.80 AST 42 H ALT 31 Alkaline Phosphatase 55 Troponin I < 0.012 Serum Total Protein 7.3 Albumin 4.5 Urinalys Dipstick Clnc Urine Color Urine Appearance Urine pH Ur Specific Howard POC Urine Protein Conf Urine Ketones Urine Nitrite Urine Bilirubin Urine Urobilinogen Urine Leukocytes Urine WBC (Auto) Urine RBC (Auto) U Hyaline Cast (Auto) U Epithel Cells (Auto) Urine Bacteria (Auto) Urine RBC Urine Mucus (Auto) Ur Culture Indicated? Urine Glucose Urine Opiates Level Ur Methadone Urine Barbiturates Ur Phencyclidine (PCP) Urine Amphetamine U Benzodiazepine Level Urine Cocaine Urine Marijuana (THC) Influenza Type A Ag Influenza Type B Ag RSV (PCR) SARS-CoV-2 (PCR) 09/17/21 11:05 WBC 12.5 H RBC 4.04 L Hgb 13.0 Hct 39.0 MCV 96.5 MCH 32.2 H MCHC 33.3 RDW 13.1 Plt Count 235 MPV 9.8 Segmented Neutrophils 66 Band Neutrophils 3 H Lymphocytes (Manual) 22 L Monocytes (Manual) 9 Toxic Granulation 1+ Platelet Estimate NORMAL RBC Morphology NORMAL PT INR APTT Sodium Potassium Chloride Carbon Dioxide Anion Gap BUN Creatinine Estimated GFR Glucose POC Glucometer Calcium Total Bilirubin AST ALT Alkaline Phosphatase Troponin I Serum Total Protein Albumin Urinalys Dipstick Clnc Urine Color Urine Appearance Urine pH Ur Specific Howard POC Urine Protein Conf Urine Ketones Urine Nitrite Urine Bilirubin Urine Urobilinogen Urine Leukocytes Urine WBC (Auto) Urine RBC (Auto) U Hyaline Cast (Auto) U Epithel Cells (Auto) Urine Bacteria (Auto) Urine RBC Urine Mucus (Auto) Ur Culture Indicated? Urine Glucose Urine Opiates Level Ur Methadone Urine Barbiturates Ur Phencyclidine (PCP) Urine Amphetamine U Benzodiazepine Level Urine Cocaine Urine Marijuana (THC) Influenza Type A Ag Influenza Type B Ag RSV (PCR) SARS-CoV-2 (PCR) Orders (Last 24 hours) Category Date Time Status Non Weight Bearing to the op extremity ROUTINE Activity 09/17/21 17:25 Active Code Status Order ROUTINE Care 09/17/21 14:36 Active EKG-ER Only STAT Care 09/17/21 12:03 Completed [place] [Catheter-Callery Stephens] STAT Care 09/17/21 13:35 Completed IV Care Q6H Care 09/17/21 14:36 Completed IV Insertion STAT Care 09/17/21 12:07 Completed Miscellaneous Nursing Order ROUTINE Care 09/18/21 08:00 Active POCT Glucose Check ACHS Care 09/17/21 15:[address] in Observation ROUTINE Care 09/17/21 14:36 Active Vital Signs Q4H Care 09/17/21 14:36 Active Consult Cardiology ROUTINE Cons 09/18/21 08:00 Active Consult Podiatry ROUTINE Cons 09/17/21 14:36 Active Notify Anesthesia Provider ROUTINE Cons 09/17/21 17:25 Active Heart-Healthy Diet Diet 09/17/21 Dinner Active ANKLE (2V) Stat Exams 09/17/21 14:10 Completed ANKLE (3 VIEWS) Stat Exams 09/17/21 13:18 Completed ARTERIAL BILAT LOWER EXTREMITY [US] Routine Exams 09/19/21 Ordered CHEST 1 VIEW (PORTABLE) Stat Exams 09/17/21 12:03 Completed HEAD WITHOUT CONTRAST [CT] Stat Exams 09/17/21 12:04 Completed LOWER EXTREMITY WO CONTRAST [CT] Stat Exams 09/17/21 17:25 Completed CBC W DIFF Stat Lab 09/17/21 11:05 Completed CMP AM.LAB Lab 09/18/21 05:20 Completed CMP Stat Lab 09/17/21 11:05 Completed CULTURE,URINE Stat Lab 09/17/21 15:16 Ordered Manual Differential NC Stat Lab 09/17/21 11:05 Completed POCT GLUCOSE Stat Lab 09/17/21 15:01 Completed POCT GLUCOSE Stat Lab 09/17/21 20:37 Completed POCT GLUCOSE Stat Lab 09/18/21 07:22 Completed PROTIME WITH INR Stat Lab 09/17/21 11:05 Completed PTT Stat Lab 09/17/21 11:05 Completed TROPONIN Q3H Lab 09/17/21 11:05 Completed TROPONIN Q3H Lab 09/17/21 15:40 Completed Urine Triage Profile Stat Lab 09/17/21 12:29 Completed Aspirin EC 325 mg [Ecotrin 325 MG] Med 09/17/21 22:00 Active 325 mg PO HS Atorvastatin Calcium [Lipitor 40Mg] Med 09/17/21 22:00 Discontinued 10 mg PO ONCE ONE Carvedilol 6.25 mg [Coreg 6.25 MG] Med 09/17/21 22:00 Discontinued 3.125 mg PO ONCE ONE Fentanyl Citrate 100 Mcg/2 ml* [Sublimaze 100 Mcg/2 ml* Med 09/17/21 12:02 Discontinued ] 100 mcg .ROUTE .STK-MED ONE Fentanyl Citrate 100 Mcg/2 ml* [Sublimaze 100 Mcg/2 ml* Med 09/17/21 12:27 Di scontinued ] 100 mcg .ROUTE .STK-MED ONE Fentanyl Citrate 100 Mcg/2 ml* [Sublimaze 100 Mcg/2 ml* Med 09/17/21 12:01 Discontinued ] 50 mcg IV STAT ONE Fentanyl Citrate 100 Mcg/2 ml* [Sublimaze 100 Mcg/2 ml* Med 09/17/21 12:23 Discontinued ] 50 mcg IV STAT ONE Gabapentin 400 mg [Neurontin 400 MG] Med 09/17/21 22:00 Discontinued 400 mg PO ONCE ONE HydrALAzine HCL 25 MG TAB [Apresoline 25 MG TABLET Med 09/17/21 22:00 Discontinued *] 25 mg PO ONCE ONE Hydromorphone 1 mg/1Ml Inj [Hydromorphone 1 mg/ml Med 09/17/21 12:56 Discontinued Injection] 1 mg .ROUTE .STK-MED ONE Hydromorphone 1 mg/1Ml Inj [Hydromorphone 1 mg/ml Med 09/17/21 14:36 Active Injection] 1 mg IV Q1H PRN PRN Hydromorphone 1 mg/1Ml Inj [Hydromorphone 1 mg/ml Med 09/17/21 12:57 Discontinued Injection] 1 mg IV STAT ONE Insulin Lispro [Humalog] Med 09/17/21 14:36 Active See Dose Instructions SQ UD PRN Losartan Potassium 50 mg [Cozaar 50 MG] Med 09/17/21 22:00 Discontinued 50 mg PO ONCE ONE NaCl 0.9% 1000 ml [Sodium Chloride 0.9% 1000 ML] 1,000 Med 09/17/21 13:34 Discontinued ml .ROUTE UD NaCl 0.9% 1000 ml [Sodium Chloride 0.9% 1000 ML] 1,000 Med 09/17/21 14:45 Active ml IV 80 mls/hr NaCl 0.9% 1000 ml [Sodium Chloride 0.9% 1000 ML] 1,000 Med 09/17/21 13:34 Discontinued ml IV 999 mls/hr Ondansetron HCl 4 mg/2 ml [Zofran 4 MG/2 ML VIAL] Med 09/17/21 12:02 Discontinued 4 mg .ROUTE .STK-MED ONE Ondansetron HCl 4 mg/2 ml [Zofran 4 MG/2 ML VIAL] Med 09/17/21 14:36 Active 4 mg IV Q6H PRN PRN Ondansetron HCl 4 mg/2 ml [Zofran 4 MG/2 ML VIAL] Med 09/17/21 12:01 Discontinued 4 mg IV STAT ONE Potassium Chloride 10 Meq Tab* [Klor Con 10 MEQ] Med 09/17/21 22:00 Discontinued 10 meq PO ONCE ONE Simvastatin 10 mg [Zocor 10MG] Med 09/17/21 22:08 Discontinued 10 mg .ROUTE .STK-MED ONE Simvastatin 10 mg [Zocor 10MG] Med 09/18/21 08:00 Discontinued 10 mg PO ONCE ONE PT Eval & Treat (MD Order) ONCE PT 09/17/21 17:25 Active Incentive Spirometry TID RT 09/18/21 07:00 Active Oxygen NASAL CANNULA 2 lpm RT 09/18/21 05:35 Active Pulse Oximetry .continuos RT 09/18/21 05:35 Active Patient Care Notes (Last 24 hours) 09/18/21 04:10 CONDUIT INSTALLER Note by Paula Torres took vitals and pts O2 was really low retook it and was lower notified nurse rebel nurse put her on 2l nasel canula Initialized on 09/18/21 04:10 - END OF NOTE 09/17/21 18:29 Nursing Note by Margaux Balderrama CALLED DR DIANA AFTER EILEEN MIRANDA ROUNDED ON PATIENT. ORDER TO START ASPIRIN 325 DAILY TONIGHT. STATES ULTRASOUND CAN WAIT UNTIL SUNDAY, BUT MUST BE DONE BEFORE PATIENT GOES TO SURGERY ON 09/20/21 Initialized on 09/17/21 18:29 - END OF NOTE 09/17/21 18:27 Nursing Note by Lorie Pinon SPOKE WITH RUTH ARELLANO. STATED THAT ASPIRIN IS OKAY TO START PER DR. CHIANG REQUEST. REQUESTED FOR STAFF TO GET CARDIO NOTES AND STUDIES FROM DR. MENDES OFFICE. PATIENT WILL NEED CARDIAC CLEARANCE. PLAN FOR PATIENT TO GO TO SURGERY 09/20/21 Initialized on 09/17/21 18:27 - END OF NOTE Code(s): S82.892A - OTH FRACTURE OF LEFT LOWER LEG, INIT FOR CLOS FX (2) Ankle syndesmosis disruption Current Visit: Yes Status: Acute Code(s): S93.439A - SPRAIN OF TIBIOFIBULAR LIGAMENT OF UNSP ANKLE, INIT ENCNTR (3) Trimalleolar fracture of left ankle Current Visit: Yes Status: Acute Code(s): S82.852A - DISPLACED TRIMALLEOLAR FRACTURE OF LEFT LOWER LEG, INIT (4) Diabetes mellitus Current Visit: No Status: Chronic Qualifiers: Diabetes mellitus type: type 2 Diabetes mellitus ferry terminal supervisor insulin use: without ferry terminal supervisor use Diabetes mellitus complication status: with kidney complications Diabetes mellitus complication detail: with other kidney complication Qualified Code(s): E11.29 - Type 2 diabetes mellitus with other diabetic kidney complication Code(s): E11.9 - TYPE 2 DIABETES MELLITUS WITHOUT COMPLICATIONS (5) HTN (hypertension) Current Visit: No Status: Chronic Qualifiers: Hypertension type: essential hypertension Qualified Code(s): I10 - Essential (primary) hypertension Code(s): I10 - ESSENTIAL (PRIMARY) HYPERTENSION
[2021-09-18] MEDS ORDERED: PREDNISONE 5 MG PO PRN (09:48)
[2021-09-18] MEDS ORDERED: NON-FORMULARY ITEM (Omega-3 Fatty Acids/Fish Oil [Fish Oil 1,000 Mg Capsule] 1 EACH Capsul PO SCH (10:00)
[2021-09-18] MEDS ORDERED: FOLIC ACID 0.8 MG PO SCH (10:00)
[2021-09-18] MEDS ORDERED: NON-FORMULARY ITEM (Potassium Chloride [Potassium Chloride] 10 MEQ Tab.Er.Prt) PO SCH (10:00)
[2021-09-18] MEDS ORDERED: NEURONTIN 300 MG PO SCH (10:00)
[2021-09-18] MEDS ORDERED: Glucophage XR 500 MG PO SCH (10:00)
[2021-09-18] MEDS ORDERED: GOLIMUMAB IM SCH (10:00)
[2021-09-18] MEDS ORDERED: NON-FORMULARY ITEM (Cyanocobalamin (Vitamin B-12) [Vitamin B12] 2,500 MCG Tablet) PO SCH (10:00)
[2021-09-18] MEDS: Klor Con 10 MEQ PO SCH ×2 (10:55→21:07)
[2021-09-18] MEDS: Neurontin 400 MG PO SCH ×3 (10:55→21:10)
[2021-09-18] MEDS: FISH OIL 1,000 MG CAPSULE PO SCH (10:55)
[2021-09-18] MEDS: Imdur 60MG PO SCH (10:56)
[2021-09-18] MEDS: Apresoline 25 MG TABLET PO SCH ×3 (10:56→21:05)
[2021-09-18] MEDS: ECOTRIN 81 MG PO SCH (10:56)
[2021-09-18] MEDS: Coreg 6.25 MG PO SCH ×2 (10:56→21:06)
[2021-09-18] MEDS: Cozaar 50 MG PO SCH ×2 (10:56→21:05)
[2021-09-18] MEDS: Lasix 40 MG PO SCH (10:56)
[2021-09-18] MEDS: Sodium Chloride 0.9% 1000 ML 1,000 ML IV SCH (14:22)
[2021-09-18] MEDS: Zocor 10MG PO SCH (21:10)
[2021-09-18] MEDS ORDERED: NON-FORMULARY ITEM (Atorvastatin Calcium 20 MG Tab) PO SCH (22:00)
[2021-09-19] MEDS: Hydromorphone 1 mg/ml Injection IV PRN ×2 (00:37→10:46)
[2021-09-19] MEDS: Sodium Chloride 0.9% 1000 ML 1,000 ML IV SCH ×2 (00:44→13:11)
[2021-09-19] MEDS ORDERED: FOLATE 1 MG PO SCH (10:00)
[2021-09-19] MEDS: Vitamin B-12 500 MCG PO SCH (10:35)
[2021-09-19] MEDS: Neurontin 400 MG PO SCH ×3 (10:35→21:17)
[2021-09-19] MEDS: Klor Con 10 MEQ PO SCH ×2 (10:35→21:18)
[2021-09-19] MEDS: FISH OIL 1,000 MG CAPSULE PO SCH (10:35)
[2021-09-19] MEDS: Cozaar 50 MG PO SCH ×2 (10:36→21:17)
[2021-09-19] MEDS: Imdur 60MG PO SCH (10:36)
[2021-09-19] MEDS: Lasix 40 MG PO SCH (10:36)
[2021-09-19] MEDS: Apresoline 25 MG TABLET PO SCH ×3 (10:36→21:18)
[2021-09-19] MEDS: Coreg 6.25 MG PO SCH (10:39)
[2021-09-19] MEDS: ECOTRIN 81 MG PO SCH (10:39)
--- NOTE | 2021-09-19 12:51 | XRAY ---
Indication: Syncope. Two-dimensional sonogram and color Doppler imaging of the carotid arteries of the neck performed. Comparison: July 09, 2020. Examination of the right carotid circulation again demonstrates tortuous common carotid artery. There is now punctate calcified plaquing in the proximal internal carotid artery. Remaining common carotid, carotid bulb, internal carotid arteries are widely patent. PSV of the CCA is 143 cm/s. PSV of the ICA is 141 cm/s. ICA/CCA ratio is 1.0. Normal antegrade vertebral artery flow. Examination of the left carotid circulation again demonstrates mild eccentric calcified plaquing at the level of bulb and origin internal carotid artery. Remaining common carotid and external carotid arteries are widely patent. PSV of the CCA is 123 cm/s. PSV of the ICA is 163 cm/s. ICA/CCA ratio is 1.3. Normal antegrade vertebral artery flow. Impression: Stable carotid sonogram again demonstrating minimal calcified plaquing bilaterally as detailed. Velocity measurements and ratios remain negative for hemodynamically significant flow-limiting stenosis.
--- NOTE | 2021-09-19 12:53 | XRAY ---
Indication: Peripheral vascular disease. Two-dimensional sonogram and color Doppler imaging of the major arteries of the left and right leg performed. Comparison: None Examination of the right leg demonstrates widely patent common femoral, deep femoral, superficial femoral, popliteal, posterior tibial, and dorsal pedal arteries all demonstrating multiphasic arterial waveforms. Examination of the left leg demonstrates widely patent common femoral, deep femoral, superficial femoral, popliteal, posterior tibial, and dorsal pedal arteries. Arterial waveforms are multiphasic with the exception of the popliteal, posterior tibial, and dorsal pedal arteries appear monophasic. Impression: Left and right leg arterial sonogram negative for critical stenosis/obstruction. CTA abdominal aorta with bilateral runoff may yield further information if there remains clinical concern.
[2021-09-19] MEDS: FOLATE 1 MG PO SCH (14:55)
[2021-09-19 17:58] LABS: Hematocrit 30.9 % (35-47); Hemoglobin 9.9 gm/dl (12.0-16.0); Mean Corpuscular Hemoglobin 32.7 pg (26-32); Mean Platelet Volume 9.9 fl (7.5-11.0); Platelet Count 123 K/mm3 (150-450); Red Blood Count 3.03 M/mm3 (4.1-5.4); White Blood Count 7.2 K/mm3 (4.0-10.5)
--- NOTE | 2021-09-19 18:00 | PCM.NOTE ---
Date and Time: 09/19/211753 Subjective Assessment: Janak is a very pleasant 80-year-old female who is seen at bedside this afternoon with machine tech at bedside. Patient is in some pain today. She currently denies any constitutional symptoms of infection. She does endorse calf pain however pain tends to get worse towards the lower leg and with any motion. She denies any shortness of breath or chest pain.She currently denies any other pedal complaints at this time Physical Exam - Narrative Narrative Physical Exam: Podiatry Physical Exam Physical exam limited secondary to patient's extreme pain. Dermatological exam with a small fracture blister measuring 2.3 x 1.9 at the anterior aspect of the ankle proximal to the medial malleolus of the left lower extremity. This is serous in nature. Soft tissue otherwise is with normal re resting skin tension lines and minimal edema. Patient is amenable for surgical intervention at this time given diminished edema to the extremity.Patient is able to wiggle toesNo pain with passive flexion of digits in dorsiflexed position OBJECTIVE DATA Vital Signs: Vital Signs - 24 hr Temp Pulse Resp BP Pulse Ox 09/19/21 16:00 99.1 F 70 20 184/81 97 09/19/21 12:00 98.7 F 69 12 158/68 96 09/19/21 08:38 93 L 09/19/21 08:00 98.6 F 76 19 146/60 98 09/19/21 04:00 99.8 F 75 20 132/60 96 09/19/21 00:00 99.1 F 66 16 126/60 95 09/18/21 20:00 99.8 F 77 16 154/68 95 09/18/21 18:58 93 L Pain Assessment - Last Documented Pain Intensity 10 Pain Scale Used 0-10 Pain Scale Intake and Output: Intake & Output 09/17/21 09/18/21 09/19/21 09/20/21 11:59 11:59 11:59 11:59 Intake Total 1803 2117 100 Output Total 700 2350 1250 Balance 1103 -233 -1150 Weight 77 kg Lab Results: Lab Results-Last 24 Hours 09/18/21 09/18/21 09/19/21 Range/Units 16:35 22:17 06:57 POC Glucometer 123 H 115 H (74 to 106) mg/dL Hemoglobin A1c 5.63 (4.5-6.0) % 09/19/21 09/19/21 Range/Units 11:46 15:57 POC Glucometer 154 H 139 H (74 to 106) mg/dL Hemoglobin A1c (4.5-6.0) % Radiology Exams: Radiology Procedures Category Date Time Status ARTERIAL BILAT LOWER EXTREMITY [US] Routine Exams 09/19/21 12:10 Completed CAROTID BILATERAL [US] Routine Exams 09/19/21 08:00 Completed ECHO W/2D AND DOPPLER [US] Routine Exams 09/19/21 08:00 Taken LOWER EXTREMITY WO CONTRAST [CT] Stat Exams 09/17/21 17:25 Completed Assessment/Plan (1) Trimalleolar fracture of left ankle Current Visit: Yes Status: Acute Assessment & Plan: Patient examination and evaluation. Given patient's clinical examination with minimal soft tissue considerations we may proceed with surgical intervention at this time consisting of open reduction internal fixation of the left ankle with syndesmotic reduction. Patient understands all risks benefits and complications of surgical intervention include and not limited to delayed skin healing delayed bone healing on skin healing and potentially nonunion. No guarantees were made as to the outcome of surgical intervention. Plenty of time was allowed for patient to ask questions which were answered to the patient's apparent satisfaction. N.p.o. 8 hours prior to surgical intervention. Consent to be signed and into the patient's paper chart prior to surgical intervention stating "open reduction internal fixation of left trimalleolar ankle fracture with syndesmotic reduction" Pain control 2 g Ancef prior to surgical intervention tomorrow Nonweightbearing to left lower extremity We will follow closely Code(s): S82.852A - DISPLACED TRIMALLEOLAR FRACTURE OF LEFT LOWER LEG, INIT (2) Ankle syndesmosis disruption Current Visit: Yes Status: Acute Code(s): S93.439A - SPRAIN OF TIBIOFIBULAR LIGAMENT OF UNSP ANKLE, INIT ENCNTR (3) Pain in left ankle and joints of left foot Current Visit: Yes Status: Acute Code(s): M25.572 - PAIN IN LEFT ANKLE AND JOINTS OF LEFT FOOT (4) Risk for falls Current Visit: Yes Status: Acute Code(s): Z91.81 - HISTORY OF FALLING (5) Gastroenteritis Current Visit: No Status: Acute Code(s): K52.9 - NONINFECTIVE GASTROENTERITIS AND COLITIS, UNSPECIFIED (6) Ankle fracture, left Current Visit: Yes Status: Acute Qualifiers: Encounter type: subsequent encounter Fracture type: closed Fracture healing: with routine healing Qualified Code(s): S82.892D - Other fracture of left lower leg, subsequent encounter for closed fracture with routine healing Code(s): S82.892A - OTH FRACTURE OF LEFT LOWER LEG, INIT FOR CLOS FX (7) COPD exacerbation Current Visit: No Status: Acute Code(s): J44.1 - CHRONIC OBSTRUCTIVE PULMONARY DISEASE W (ACUTE) EXACERBATION (8) Fever Current Visit: No Status: Acute Code(s): R50.9 - FEVER, UNSPECIFIED (9) Failure of outpatient treatment Current Visit: No Status: Acute Code(s): Z78.9 - OTHER SPECIFIED HEALTH STATUS (10) Fall Current Visit: No Status: Acute Qualifiers: Code(s): W19.XXXA - UNSPECIFIED FALL, INITIAL ENCOUNTER (11) DVT prophylaxis Current Visit: No Status: Acute Code(s): NKE5514 - (12) Hypoxia Current Visit: No Status: Acute Code(s): R09.02 - HYPOXEMIA
--- NOTE | 2021-09-19 18:09 | PCM.NOTE ---
Date and Time: 09/19/211806 Subjective Assessment: confused. c/o pain in left ankle - Review of Systems Constitutional: Lethargy, No Fever, No Chills Eyes: No Symptoms Ears, Nose, & Throat: No Symptoms Respiratory: No Cough, No Short Of Breath Cardiac: No Chest Pain, No Edema, No Syncope Abdominal/Gastrointestinal: No Abdominal Pain, No Nausea, No Vomiting, No Diarrhea Genitourinary Symptoms: No Dysuria Musculoskeletal: No Back Pain, No Neck Pain Skin: No Rash Neurological: No Dizziness, No Focal Weakness, No Sensory Changes Psychological: No Symptoms Endocrine: No Symptoms Hematologic/Lymphatic: No Symptoms Immunological/Allergic: No Symptoms Objective Exam General Appearance: no apparent distress, alert Neurologic Exam: alert, oriented x 3, cooperative, normal mood/affect, nml cerebellar function, sensation nml, No motor deficits Skin Exam: normal color, warm, dry Eye Exam: PERRL, EOMI, eyes nml inspection Ears, Nose, Throat Exam: normal ENT inspection, pharynx normal, moist mucous membranes Neck Exam: normal inspection, non-tender, supple, full range of motion Respiratory Exam: normal breath sounds, lungs clear, No respiratory distress Cardiovascular Exam: regular rate/rhythm, normal heart sounds Gastrointestinal/Abdomen Exam: soft, No tenderness, No mass Extremity Exam: normal inspection, normal range of motion, limited range of motion (left ankle) Back Exam: normal inspection, normal range of motion, No CVA tenderness, No vertebral tenderness Pelvic Exam: deferred Rectal Exam: deferred OBJECTIVE DATA Vital Signs: Vital Signs - 24 hr Temp Pulse Resp BP Pulse Ox 09/19/21 16:00 99.1 F 70 20 184/81 97 09/19/21 12:00 98.7 F 69 12 158/68 96 09/19/21 08:38 93 L 09/19/21 08:00 98.6 F 76 19 146/60 98 09/19/21 04:00 99.8 F 75 20 132/60 96 09/19/21 00:00 99.1 F 66 16 126/60 95 09/18/21 20:00 99.8 F 77 16 154/68 95 09/18/21 18:58 93 L Pain Assessment - Last Documented Pain Intensity 10 Pain Scale Used 0-10 Pain Scale Intake and Output: Intake & Output 09/17/21 09/18/21 09/19/2109/20/22 11:59 11:59 11:59 11:59 Intake Total 1803 2117 200 Output Total 753 2350 1250 Balance 1103 -233 -1050 Weight 77 kg Lab Results: Lab Results-Last 24 Hours 09/18/21 09/18/21 09/19/21 Range/Units 16:35 22:17 06:57 WBC (4.0-10.5) K/mm3 RBC (4.1-5.4) M/mm3 Hgb (12.0-16.0) gm/dl Hct (35-47) % MCV (78-100) fl MCH (26-32) pg MCHC (32-36) g/dl RDW (11.5-14.0) % Plt Count (150-450) K/mm3 MPV (7.5-11.0) fl POC Glucometer 123 H 115 H (74 to 106) mg/dL Hemoglobin A1c 5.63 (4.5-6.0) % 09/19/21 09/19/21 09/19/21 Range/Units 11:46 15:57 17:45 WBC 7.2 (4.0-10.5) K/mm3 RBC 3.03 L (4.1-5.4) M/mm3 Hgb 9.9 L (12.0-16.0) gm/dl Hct 30.9 L (35-47) % MCV 102.0 H (78-100) fl MCH 32.7 H (26-32) pg MCHC 32.0 (32-36) g/dl RDW 13.0 (11.5-14.0) % Plt Count 123 L (150-450) K/mm3 MPV 9.9 (7.5-11.0) fl POC Glucometer 154 H 139 H (74 to 106) mg/dL Hemoglobin A1c (4.5-6.0) % Radiology Exams: Radiology Procedures Category Date Time Status ARTERIAL BILAT LOWER EXTREMITY [US] Routine Exams 09/19/21 12:10 Completed CAROTID BILATERAL [US] Routine Exams 09/19/21 08:00 Completed ECHO W/2D AND DOPPLER [US] Routine Exams 09/19/21 08:00 Taken LOWER EXTREMITY WO CONTRAST [CT] Stat Exams 09/17/21 17:25 Completed Assessment/Plan (1) Ankle fracture, left Current Visit: Yes Status: Acute Qualifiers: Encounter type: subsequent encounter Fracture type: closed Fracture healing: with routine healing Qualified Code(s): S82.892D - Other fracture of left lower leg, subsequent encounter for closed fracture with routine healing Assessment & Plan: Chief Complaint Diagnosis FRACTURED L ANKLE, SYNCOPAL EPISODE, FALL AT HOME Allergies Allergy/AdvReac Type Severity Reaction Status Date / Time No Known Drug Allergies Allergy Verified 09/17/21 12:13 Vital Signs (Last 24 hours) Temp Pulse Resp BP Pulse Ox 09/19/21 16:00 99.1 F 70 20 184/81 97 09/19/21 12:00 98.7 F 69 12 158/68 96 09/19/21 08:38 93 L 09/19/21 08:00 98.6 F 76 19 146/60 98 09/19/21 04:00 99.8 F 75 20 132/60 96 09/19/21 00:00 99.1 F 66 16 126/60 95 09/18/21 20:00 99.8 F 77 16 154/68 95 09/18/21 18:58 93 L Home Medications Medication Instructions Recorded Confirmed Last Taken Type Alendronate Sodium 70 mg 70 mg PO Q7D@0600 09/17/21 09/17/21 Unknown History [Fosamax 70 MG] Cyanocobalamin (Vitamin B-12) 2,500 mcg PO DAILY 09/17/21 09/17/21 Unknown History [Vitamin B12] Furosemide 40 mg [Lasix 40 40 mg PO DAILY 09/17/21 09/17/21 Unknown History MG] Golimumab [Simponi Aria] 50 mg IM UD 09/17/21 09/17/21 Unknown History HydrALAzine HCL 25 MG TAB 25 mg PO TID 09/17/21 09/17/21 Unknown History [Apresoline 25 MG TABLET] Isosorbide Mononitrate [Isosorbide 60 mg PO DAILY 09/17/21 09/17/21 Unknown History Mononitrate ER] Losartan Potassium 50 mg 50 mg PO BID 09/17/21 09/17/21 Unknown History [Cozaar 50 MG] Metformin HCl Xr 500 mg 500 mg PO BID 09/17/21 09/17/21 Unknown History [Glucophage XR 500 MG] Stryker-3 Fatty Acids/Fish Oil [Fish 1 tab PO DAILY 09/17/21 09/17/21 Unknown History Oil 1,000 mg Capsule] Potassium Chloride 10 meq PO BID 09/17/21 09/17/21 Unknown History Current Medications Generic Name Dose Route Start Last Admin Trade Name Anuj PRN Reason Stop Dose Admin Alendronate Sodium 70 mg 09/25/21 06:00 Alendronate Sodium 70 Mg Tablet PO 10/25/21 05:59 Q7D@0600 HARMAN Aspirin 81 mg 09/18/21 10:00 09/19/21 10:39 Aspirin 81 Mg Tablet.Ec PO 10/18/21 09:59 81 mg DAILY HARMAN Administration Carvedilol 3.125 mg 09/19/21 22:00 Carvedilol 3.125 Mg Tablet PO 10/19/21 21:59 BID HARMAN Cyanocobalamin 2,500 mcg 09/19/21 10:00 09/19/21 10:35 Cyanocobalamin 500 Mcg Tablet PO 10/19/21 09:59 2,500 mcg DAILY HARMAN Administration Fish Oil 1,000 mg 09/18/21 11:00 09/19/21 10:35 Stryker-3 Fatty Acids/Fish Oil 1000 Mg Capsule PO 10/18/21 10:59 1,000 mg DAILY HARMAN Administration Folic Acid 1 mg 09/19/21 14:00 09/19/21 14:55 Folic Acid 1 Mg Tablet PO 10/19/21 13:59 1 mg DAILY HARMAN Administration Furosemide 40 mg 09/18/21 10:00 09/19/21 10:36 Furosemide 40 Mg Tablet PO 10/18/21 09:59 40 mg DAILY HARMAN Administration Gabapentin 400 mg 09/18/21 10:00 09/19/21 14:55 Gabapentin 400 Mg Capsule PO 10/18/21 09:59 400 mg TID HARMAN Administration Hydralazine HCl 25 mg 09/18/21 10:00 09/19/21 14:55 Hydralazine Hcl 25 Mg Tablet PO 10/18/21 09:59 25 mg TID HARMAN Administration Hydromorphone HCl 1 mg 09/17/21 14:36 09/19/21 10:46 Hydromorphone 1 Mg/1ml Inj 1 Mg/Ml Syringe IV 09/22/21 14:35 1 mg Q1H PRN PRN Administration PAIN Sodium Chloride 1,000 mls @ 80 mls/hr 09/17/21 14:45 09/19/21 13:11 Sodium Chloride 0.9% 1000 Ml IV 10/17/21 14:44 80 mls/hr .[id number] HARMAN Administration Insulin Human Lispro 0 unit 09/17/21 14:36 Insulin Lispro 1 Unit SQ 10/17/21 14:35 UD PRN HYPERGLYCEMIA Isosorbide Mononitrate 60 mg 09/18/21 10:00 09/19/21 10:36 Isosorbide Mononitrate 60 Mg Tab PO 10/18/21 09:59 60 mg DAILY HARMAN Administration Losartan Potassium 50 mg 09/18/21 10:00 09/19/21 10:36 Losartan Potassium 50 Mg Tablet PO 10/18/21 09:59 50 mg BID HARMAN Administration Ondansetron HCl 4 mg 09/17/21 14:36 Ondansetron Hcl 4 Mg/2 Ml Vial IV 10/17/21 14:35 Q6H PRN PRN NAUSEA/VOMITING Potassium Chloride 10 meq 09/18/21 11:00 09/19/21 10:35 Potassium Chloride 10 Meq Tablet PO 10/18/21 10:59 10 meq BID HARMAN Administration Simvastatin 10 mg 09/18/21 22:00 09/18/21 21:10 Simvastatin 10 Mg Tablet PO 10/18/21 21:59 10 mg HS HARMAN Administration Discontinued Medications Generic Name Dose Route Start Last Admin Trade Name Freq PRN Reason Stop Dose Admin Aspirin 325 mg 09/17/21 22:00 09/17/21 22:14 Aspirin 325 Mg Tablet.Ec PO 10/17/21 21:59 325 mg HS HARMAN Administration Atorvastatin Calcium 10 mg 09/17/21 22:00 09/17/21 22:14 Atorvastatin Calcium 40 Mg Tablet PO 09/17/21 22:01 10 mg ONCE ONE Administration Carvedilol 3.125 mg 09/17/21 22:00 09/17/21 22:15 Carvedilol 6.25 Mg Tablet PO 09/17/21 22:01 3.125 mg ONCE ONE Administration Carvedilol 3.125 mg 09/18/21 10:00 09/19/21 10:39 Carvedilol 6.25 Mg Tablet PO 10/18/21 09:59 3.125 mg BID HARMAN Administration Fentanyl Citrate 50 mcg 09/17/21 12:01 09/17/21 12:04 Fentanyl Citrate 100 Mcg/2 Ml* Vial IV 09/17/21 12:02 50 mcg STAT ONE Administration Fentanyl Citrate Confirm 09/17/21 12:02 Fentanyl Citrate 100 Mcg/2 Ml* Vial Administered 09/17/21 12:03 Dose 100 mcg .ROUTE .STK-MED ONE Fentanyl Citrate 50 mcg 09/17/21 12:23 09/17/21 12:33 Fentanyl Citrate 100 Mcg/2 Ml* Vial IV 09/17/21 12:24 50 mcg STAT ONE Administration Fentanyl Citrate Confirm 09/17/21 12:27 Fentanyl Citrate 100 Mcg/2 Ml* Vial Administered 09/17/21 12:28 Dose 100 mcg .ROUTE .STK-MED ONE Folic Acid 1,000 mg 09/19/21 10:00 09/19/21 10:58 Folic Acid 1 Mg Tablet PO 10/19/21 09:59 Not Given DAILY HARMAN Gabapentin 400 mg 09/17/21 22:00 09/17/21 22:14 Gabapentin 400 Mg Capsule PO 09/17/21 22:01 400 mg ONCE ONE Administration Hydralazine HCl 25 mg 09/17/21 22:00 09/17/21 22:13 Hydralazine Hcl 25 Mg Tablet PO 09/17/21 22:01 25 mg ONCE ONE Administration Hydromorphone HCl 1 mg 09/17/21 12:57 09/17/21 12:58 Hydromorphone 1 Mg/1ml Inj 1 Mg/Ml Syringe IV 09/17/21 12:58 1 mg STAT ONE Administration Hydromorphone HCl Confirm 09/17/21 12:56 Hydromorphone 1 Mg/1ml Inj 1 Mg/Ml Syringe Administered 09/17/21 12:57 Dose 1 mg .ROUTE .STK-MED ONE Sodium Chloride 1,000 mls @ 999 mls/hr 09/17/21 13:34 09/17/21 14:39 Sodium Chloride 0.9% 1000 Ml IV 09/17/21 14:34 Infused .Q1H1M STA Infusion Sodium Chloride Confirm 09/17/21 13:34 Sodium Chloride 0.9% 1000 Ml Administered 09/17/21 13:35 Dose 1,000 mls @ ud .ROUTE .STK-MED ONE Losartan Potassium 50 mg 09/17/21 22:00 09/17/21 22:14 Losartan Potassium 50 Mg Tablet PO 09/17/21 22:01 50 mg ONCE ONE Administration Metformin HCl 500 mg 09/18/21 10:00 Metformin Hcl Er 500 Mg Tab PO 10/18/21 09:59 BID HARMAN Non-Formulary Medication 5 mg 09/18/21 09:48 Prednisone [Prednisone] PO DAILY PRN PRN PAIN Non-Formulary Medication 50 mg 09/18/21 10:00 Golimumab IM 10/18/21 09:59 UD HARMAN Ondansetron HCl 4 mg 09/17/21 12:01 09/17/21 12:04 Ondansetron Hcl 4 Mg/2 Ml Vial IV 09/17/21 12:02 4 mg STAT ONE Administration Ondansetron HCl Confirm 09/17/21 12:02 Ondansetron Hcl 4 Mg/2 Ml Vial Administered 09/17/21 12:03 Dose 4 mg .ROUTE .STK-MED ONE Potassium Chloride 10 meq 09/17/21 22:00 09/17/21 22:15 Potassium Chloride 10 Meq Tablet PO 09/17/21 22:01 10 meq ONCE ONE Administration Simvastatin Confirm 09/17/21 22:08 Simvastatin 10 Mg Tablet Administered 09/17/21 22:09 Dose 10 mg .ROUTE .STK-MED ONE Simvastatin 10 mg 09/18/21 08:00 Simvastatin 10 Mg Tablet PO 09/18/21 08:01 ONCE ONE Intake & Output (Last 24 hours) 09/17/21 09/18/21 09/19/21 09/20/21 11:59 11:59 11:59 11:59 Intake Total 1803 2117 200 Output Total 700 2350 1250 Balance 1103 -233 -1050 Weight 77 kg Microbiology Results (Last 24 hours) 09/17/21 15:16 Catherized Urine Culture - Final NO GROWTH Laboratory Results (Last 24 hours) 09/19/21 09/19/21 09/19/21 17:45 15:57 11:46 WBC 7.2 RBC 3.03 L Hgb 9.9 L Hct 30.9 L MCV 102.0 H MCH 32.7 H MCHC 32.0 RDW 13.0 Plt Count 123 L MPV 9.9 POC Glucometer 139 H 154 H Hemoglobin A1c 09/19/21 09/18/21 09/18/21 06:57 22:17 16:35 WBC RBC Hgb Hct MCV MCH MCHC RDW Plt Count MPV POC Glucometer 115 H 123 H Hemoglobin A1c 5.63 Orders (Last 24 hours) Category Date Time Status ARTERIAL BILAT LOWER EXTREMITY [US] Routine Exams 09/19/21 12:10 Completed CAROTID BILATERAL [US] Routine Exams 09/19/21 08:00 Completed ECHO W/2D AND DOPPLER [US] Routine Exams 09/19/21 08:00 Taken CBC Stat Lab 09/19/21 17:45 Completed CMP Stat Lab 09/19/21 17:45 Received MAG [MAGNESIUM] Stat Lab 09/19/21 17:45 Received POCT GLUCOSE Stat Lab 09/18/21 22:17 Completed POCT GLUCOSE Stat Lab 09/19/21 06:57 Completed POCT GLUCOSE Stat Lab 09/19/21 11:46 Completed POCT GLUCOSE Stat Lab 09/19/21 15:57 Completed Alendronate Sodium 70 mg [Fosamax 70 MG] Med 09/25/21 06:00 Active 70 mg PO Q7D@0600 Carvedilol 3.125 mg [Coreg 3.125 MG] Med 09/19/21 22:00 Active 3.125 mg PO BID Cyanocobalamin 500 Mcg [Vitamin B-12 500 MCG] Med 09/19/21 10:00 Active 2,500 mcg PO DAILY Folic Acid 1 mg [Folate 1 mg] Med 09/19/21 14:00 Active 1 mg PO DAILY Folic Acid 1 mg [Folate 1 mg] Med 09/19/21 10:00 Discontinued 1,000 mg PO DAILY Simvastatin 10 mg [Zocor 10MG] Med 09/18/21 22:00 Active 10 mg PO HS Patient Care Notes (Last 24 hours) 09/19/21 16:00 (created 09/19/21 18:05) Nursing Note by Mike Garcia CALLED DR ESQUIVEL OFFICE TO CHECK ON CARDIAC CLEARANCE STATUS. NURSE STATES IT STILL NEEDS TO BE ADDRESSED THEN THEY WILL FAX IT TO US Initialized on 09/19/21 18:05 - END OF NOTE 09/19/21 12:00 Nursing Note by Alejandra King PROGRESS NOTES FROM DR MENDES HAVE BEEN FAXED TO DR AYESHA MORENO 09-19-20 1200PM Initialized on 09/19/21 12:00 - END OF NOTE 09/19/21 11:58 Nursing Note by Mike Garcia CALLED DR MENDES'S OFFICE REQUESTING CARDIAC CLEARANCE. SPOKE WITH HIS NURSE HAYLEE, SHE STATES SHE WILL GET INFORMATION TO MD AND WILL GET BACK WITH US Initialized on 09/19/21 11:58 - END OF NOTE 09/19/21 09:04 Nursing Note by Mike Garcia NIGHT NURSE VIJI STATED IN REPORT THIS AM THAT SHE GAVE PT DILAUDID AT [id number] BUT FOR SOME REASON IT DID NOT SAVE WHEN SHE DOCUMENTED IT IN MAR. SHE ATTEMPTED TO DOCUMENT IT AGAIN BUT IS STILL NOT SAVED IN THE MAR Initialized on 09/19/21 09:04 - END OF NOTE 09/19/21 08:40 Nursing Note by Mike Garcia BP 192/77 ON MONITOR, RECHECKED MANUALLY, 146/60 Initialized on 09/19/21 08:40 - END OF NOTE Code(s): S82.892A - OTH FRACTURE OF LEFT LOWER LEG, INIT FOR CLOS FX (2) Ankle syndesmosis disruption Current Visit: Yes Status: Acute Code(s): S93.439A - SPRAIN OF TIBIOFIBULAR LIGAMENT OF UNSP ANKLE, INIT ENCNTR (3) Trimalleolar fracture of left ankle Current Visit: Yes Status: Acute Code(s): S82.852A - DISPLACED TRIMALLEOLAR FRACTURE OF LEFT LOWER LEG, INIT (4) Diabetes mellitus Current Visit: No Status: Chronic Qualifiers: Diabetes mellitus type: type 2 Diabetes mellitus long-term insulin use: without long-term use Diabetes mellitus complication status: with kidney complications Diabetes mellitus complication detail: with other kidney complication Qualified Code(s): E11.29 - Type 2 diabetes mellitus with other diabetic kidney complication Code(s): E11.9 - TYPE 2 DIABETES MELLITUS WITHOUT COMPLICATIONS (5) HTN (hypertension) Current Visit: No Status: Chronic Qualifiers: Hypertension type: essential hypertension Qualified Code(s): I10 - Essential (primary) hypertension Code(s): I10 - ESSENTIAL (PRIMARY) HYPERTENSION
[2021-09-19 18:12] LABS: ALBUMIN 3.4 g/dL (3.5-5.0); ANION GAP 12.5 MEQ/L (5-15); BILIRUBIN,TOTAL 1.1 mg/dL (0.2-1.3); Calcium 8.3 mg/dL (8.4-10.2); Creatinine 1 1.17 mg/dL (0.52-1.04); EST GLOMERULAR FILTRATION RATE 47.5 ML/MIN; MAGNESIUM 1.7 mg/dL (1.6-2.3); Potassium 3.9 mmol/L (3.5-5.1); Total Protein 6.1 g/dL (6.3-8.2)
[2021-09-19] MEDS: SUBLIMAZE 100 MCG/2 ML IV PRN (18:31)
[2021-09-19] MEDS: Zocor 10MG PO SCH (21:18)
[2021-09-19] MEDS: Coreg 3.125 MG PO SCH (21:19)
[2021-09-20] MEDS: SUBLIMAZE 100 MCG/2 ML IV PRN ×2 (00:15→05:39)
[2021-09-20 05:02] LABS: Absolute Neutrophil Ct (ANC) 2.94 (1.4-6.9); Basophil (Absolute #) 0.02 (0-0.4); Eosinophil % 1.9 % (0.00-5.0); Eosinophil (Absolute #) 0.11 (0-0.5); Hematocrit 27.9 % (35-47); Hemoglobin 9.2 gm/dl (12.0-16.0); Lymphocyte (Absolute #) 1.83 (1.0-4.6); Lymphocytes % 31.8 % (24.0-44.0); Mean Cell Volume 99.3 fl (78-100); Mean Corpuscular Hemoglobin 32.7 pg (26-32); Mean Platelet Volume 9.6 fl (7.5-11.0); Monocyte (Absolute #) 0.85 (0.0-1.3); Monocytes % 14.8 % (0.0-12.0); Neutrophil % 51.2 % (36.0-66.0); Platelet Count 106 K/mm3 (150-450); Red Blood Count 2.81 M/mm3 (4.1-5.4); Red Cell Distribution Width 12.4 % (11.5-14.0); White Blood Count 5.8 K/mm3 (4.0-10.5)
[2021-09-20 06:18] LABS: ANION GAP 10.5 MEQ/L (5-15); BILIRUBIN,TOTAL 1.1 mg/dL (0.2-1.3); Potassium 3.9 mmol/L (3.5-5.1); TROPONIN 0.014 ng/mL (0.000-0.034); TSH, 3RD Generation 0.54 mIU/L (0.47-4.68); Total Protein 5.6 g/dL (6.3-8.2)
[2021-09-20] MEDS ORDERED: DILAUDID 1 MG/1ML PCA IV PRN (07:39)
[2021-09-20] MEDS ORDERED: Narcan 0.4 MG/ML IV PRN (07:45)
[2021-09-20] MEDS ORDERED: Lactated Ringers 1,000 ML IV SCH (09:00)
[2021-09-20] MEDS ORDERED: Lactated Ringers 1,000 ML IV ONE (09:37)
[2021-09-20] MEDS ORDERED: XYLOCAINE 1% HCL 20 ML MDV ONE (09:37)
[2021-09-20] MEDS ORDERED: BUPIVACAINE 0.5% VIAL IJ ONE (09:37)
[2021-09-20] MEDS ORDERED: TRANDATE 20 MG/4 ML SYRINGE IV ONE (10:05)
[2021-09-20] MEDS: Sodium Chloride 0.9% 1000 ML 1,000 ML IV SCH ×2 (10:31→18:10)
[2021-09-20] MEDS: Apresoline 25 MG TABLET PO SCH ×3 (11:16→19:35)
[2021-09-20] MEDS: Cozaar 50 MG PO SCH ×2 (11:16→19:35)
[2021-09-20] MEDS: Lasix 40 MG PO SCH (11:16)
[2021-09-20] MEDS: Coreg 3.125 MG PO SCH ×2 (11:16→19:35)
[2021-09-20] MEDS ORDERED: Zemuron 100 MG/10 ML ONE (12:15)
[2021-09-20] MEDS ORDERED: Versed 2 MG/2 ML Injection ONE (12:15)
[2021-09-20] MEDS ORDERED: DIPRIVAN 200 MG/20 ML IV ONE (12:15)
[2021-09-20] MEDS ORDERED: KEFZOL 1 GM ONE (12:58)
--- NOTE | 2021-09-20 13:15 | PCM.NOTE ---
Date and Time: 09/20/21 1314 Subjective Assessment: s/p surgery for fracture repair left ankle - Review of Systems Constitutional: No Fever, No Chills Eyes: No Symptoms Ears, Nose, & Throat: No Symptoms Respiratory: No Cough, No Short Of Breath Cardiac: No Chest Pain, No Edema, No Syncope Abdominal/Gastrointestinal: No Abdominal Pain, No Nausea, No Vomiting, No Diarrhea Genitourinary Symptoms: No Dysuria Musculoskeletal: Deformity, Fall, Joint Swelling, No Back Pain, No Neck Pain Skin: No Rash Neurological: No Dizziness, No Focal Weakness, No Sensory Changes Psychological: No Symptoms Endocrine: No Symptoms Hematologic/Lymphatic: No Symptoms Immunological/Allergic: No Symptoms Objective Exam General Appearance: no apparent distress, alert Neurologic Exam: alert, oriented x 3, cooperative, normal mood/affect, nml cerebellar function, sensation nml, No motor deficits Skin Exam: normal color, warm, dry Eye Exam: PERRL, EOMI, eyes nml inspection Ears, Nose, Throat Exam: normal ENT inspection, pharynx normal, moist mucous membranes Neck Exam: normal inspection, non-tender, supple, full range of motion Respiratory Exam: normal breath sounds, lungs clear, No respiratory distress Cardiovascular Exam: regular rate/rhythm, normal heart sounds Gastrointestinal/Abdomen Exam: soft, No tenderness, No mass Extremity Exam: normal inspection, normal range of motion, other (s/p fracture repair) Back Exam: normal inspection, normal range of motion, No CVA tenderness, No vertebral tenderness Pelvic Exam: deferred Rectal Exam: deferred OBJECTIVE DATA Vital Signs: Vital Signs - 24 hr Temp Pulse Resp BP BP Pulse Ox 09/20/21 12:36 98.6 F 83 21 96 09/20/21 11:53 98.7 F 69 18 202/84 95 09/20/21 11:16 09/20/21 10:30 211/84 95 09/20/21 10:07 211/84 09/20/21 08:00 98.7 F 76 19 204/88 94 L 09/20/21 07:52 96 09/20/21 04:00 98.9 F 71 21 187/78 96 09/20/21 00:05 94 L 09/20/21 00:00 98.9 F 74 20 161/70 88 L 09/19/21 20:00 99.1 F 78 18 162/69 92 L 09/19/21 19:33 94 L 09/19/21 16:00 99.1 F 70 20 184/81 97 Pain Assessment - Last Documented Pain Intensity 3 Pain Scale Used 0-10 Pain Scale Intake and Output: Intake & Output 09/18/21 09/19/21 09/20/21 09/21/21 11:59 11:59 11:59 11:59 Intake Total 1803 2117 3780 Output Total 226 4350 6470 Balance 1103 -805 -796 Weight 77 kg 77 kg Lab Results: Lab Results-Last 24 Hours 09/19/21 09/19/21 09/19/21 Range/Units 15:57 17:45 17:45 WBC 7.2 (4.0-10.5) K/mm3 RBC 3.03 L (4.1-5.4) M/mm3 Hgb 9.9 L (12.0-16.0) gm/dl Hct 30.9 L (35-47) % MCV 102.0 H (78-100) fl MCH 32.7 H (26-32) pg MCHC 32.0 (32-36) g/dl RDW 13.0 (11.5-14.0) % Plt Count 123 L (150-450) K/mm3 MPV 9.9 (7.5-11.0) fl Gran % (36.0-66.0) % Eos # (Auto) (0-0.5) Absolute Lymphs (auto) (1.0-4.6) Absolute Monos (auto) (0.0-1.3) Lymphocytes % (24.0-44.0) % Monocytes % (0.0-12.0) % Eosinophils % (0.00-5.0) % Basophils % (0.0-0.4) % Absolute Granulocytes (1.4-6.9) Basophils # (0-0.4) Sodium 136 L (137-145) mmol/L Potassium 3.9 (3.5-5.1) mmol/L Chloride 103 (98-107) mmol/L Carbon Dioxide 25 (22-30) mmol/L Anion Gap 12.5 (5-15) MEQ/L BUN 22 H (7-17) mg/dL Creatinine 1.17 H (0.52-1.04) mg/dL Estimated GFR 47.5 ML/MIN Glucose 138 H (74-106) mg/dL POC Glucometer 139 H (74 to 106) mg/dL Calcium 8.3 L (8.4-10.2) mg/dL Magnesium 1.7 (1.6-2.3) mg/dL Total Bilirubin 1.10 (0.2-1.3) mg/dL AST 37 H (14-36) U/L ALT 27 (0-35) U/L Alkaline Phosphatase 55 (38-126) U/L Troponin I (0.000-0.034) ng/mL NT-Pro-B Natriuret Pep (0-1800) pg/mL Serum Total Protein 6.1 L (6.3-8.2) g/dL Albumin 3.4 L (3.5-5.0) g/dL Vitamin B12 (239-931) pg/mL TSH 3rd Generation (0.47-4.68) mIU/L 09/19/21 09/20/21 09/20/21 Range/Units 20:48 04:40 04:40 WBC 5.8 (4.0-10.5) K/mm3 RBC 2.81 L (4.1-5.4) M/mm3 Hgb 9.2 L (12.0-16.0) gm/dl Hct 27.9 L (35-47) % MCV 99.3 (78-100) fl MCH 32.7 H (26-32) pg MCHC 33.0 (32-36) g/dl RDW 12.4 (11.5-14.0) % Plt Count 106 L (150-450) K/mm3 MPV 9.6 (7.5-11.0) fl Gran % 51.2 (36.0-66.0) % Eos # (Auto) 0.11 (0-0.5) Absolute Lymphs (auto) 1.83 (1.0-4.6) Absolute Monos (auto) 0.85 (0.0-1.3) Lymphocytes % 31.8 (24.0-44.0) % Monocytes % 14.8 H (0.0-12.0) % Eosinophils % 1.9 (0.00-5.0) % Basophils % 0.3 (0.0-0.4) % Absolute Granulocytes 2.94 (1.4-6.9) Basophils # 0.02 (0-0.4) Sodium (137-145) mmol/L Potassium (3.5-5.1) mmol/L Chloride (98-107) mmol/L Carbon Dioxide (22-30) mmol/L Anion Gap (5-15) MEQ/L BUN (7-17) mg/dL Creatinine (0.52-1.04) mg/dL Estimated GFR ML/MIN Glucose (74-106) mg/dL POC Glucometer 153 H (74 to 106) mg/dL Calcium (8.4-10.2) mg/dL Magnesium (1.6-2.3) mg/dL Total Bilirubin (0.2-1.3) mg/dL AST (14-36) U/L ALT (0-35) U/L Alkaline Phosphatase (38-126) U/L Troponin I (0.000-0.034) ng/mL NT-Pro-B Natriuret Pep 1850 H (0-1800) pg/mL Serum Total Protein (6.3-8.2) g/dL Albumin (3.5-5.0) g/dL Vitamin B12 (239-931) pg/mL TSH 3rd Generation (0.47-4.68) mIU/L 09/20/21 09/20/21 09/20/21 Range/Units 04:40 07:42 11:50 WBC (4.0-10.5) K/mm3 RBC (4.1-5.4) M/mm3 Hgb (12.0-16.0) gm/dl Hct (35-47) % MCV (78-100) fl MCH (26-32) pg MCHC (32-36) g/dl RDW (11.5-14.0) % Plt Count (150-450) K/mm3 MPV (7.5-11.0) fl Gran % (36.0-66.0) % Eos # (Auto) (0-0.5) Absolute Lymphs (auto) (1.0-4.6) Absolute Monos (auto) (0.0-1.3) Lymphocytes % (24.0-44.0) % Monocytes % (0.0-12.0) % Eosinophils % (0.00-5.0) % Basophils % (0.0-0.4) % Absolute Granulocytes (1.4-6.9) Basophils # (0-0.4) Sodium 136 L (137-145) mmol/L Potassium 3.9 (3.5-5.1) mmol/L Chloride 105 (98-107) mmol/L Carbon Dioxide 24 (22-30) mmol/L Anion Gap 10.5 (5-15) MEQ/L BUN 19 H (7-17) mg/dL Creatinine 1.00 (0.52-1.04) mg/dL Estimated GFR 57.0 ML/MIN Glucose 142 H (74-106) mg/dL POC Glucometer 157 H 140 H (74 to 106) mg/dL Calcium 8.0 L (8.4-10.2) mg/dL Magnesium (1.6-2.3) mg/dL Total Bilirubin 1.10 (0.2-1.3) mg/dL AST 33 (14-36) U/L ALT 25 (0-35) U/L Alkaline Phosphatase 50 (38-126) U/L Troponin I 0.014 (0.000-0.034) ng/mL NT-Pro-B Natriuret Pep (0-1800) pg/mL Serum Total Protein 5.6 L (6.3-8.2) g/dL Albumin 3.0 L (3.5-5.0) g/dL Vitamin B12 841 (239-931) pg/mL TSH 3rd Generation 0.540 (0.47-4.68) mIU/L Radiology Exams: Radiology Procedures Category Date Time Status ANKLE (3 VIEWS) Routine Exams 09/20/21 Ordered ARTERIAL BILAT LOWER EXTREMITY [US] Routine Exams 09/19/21 12:10 Completed CAROTID BILATERAL [US] Routine Exams 09/19/21 08:00 Completed ECHO W/2D AND DOPPLER [US] Routine Exams 09/19/21 08:00 Taken FLUOROSCOPY UP TO 1 HR Routine Exams 09/20/21 Ordered Multi-Disciplinary Progress Notes: Multi-Disciplinary Progress Notes 09/20/21 11:14 Physical Therapy Note by Pedrito/[id number],Lexii CONT. TO HOLD P.T. INTERVENTION UNTIL AFTER SX. PT. STILL AWAITING CARDIAC CLEARANCE. WILL CHECK W/ NSG RE: ANY NEEDS TO ASSIST W/ TOILETING AND BED MOBILITY PRIOR TO SX. Initialized on 09/20/21 11:14 - END OF NOTE 09/20/21 09:51 Case Management Note by Maki Shah PATIENT SCHEDULED FOR OT TODAY- PER NURSING STAFF STILL WAITING ON CARDIA CLEARANCE AT THIS TIME Initialized on 09/20/21 09:51 - END OF NOTE Assessment/Plan (1) Ankle fracture, left Current Visit: Yes Status: Acute Qualifiers: Encounter type: subsequent encounter Fracture type: closed Fracture healing: with routine healing Qualified Code(s): S82.892D - Other fracture of left lower leg, subsequent encounter for closed fracture with routine healing Assessment & Plan: Chief Complaint Diagnosis FRACTURED L ANKLE, SYNCOPAL EPISODE, FALL AT HOME Allergies Allergy/AdvReac Type Severity Reaction Status Date / Time No Known Drug Allergies Allergy Verified 09/17/21 12:13 Vital Signs (Last 24 hours) Temp Pulse Resp BP BP Pulse Ox 09/20/21 12:36 98.6 F 83 21 96 09/20/21 11:53 98.7 F 69 18 202/84 95 09/20/21 11:16 202/84 09/20/21 10:30 211/84 95 09/20/21 10:07 211/84 09/20/21 08:00 98.7 F 76 19 204/88 94 L 09/20/21 07:52 96 09/20/21 04:00 98.9 F 71 21 187/78 96 09/20/21 00:05 94 L 09/20/21 00:00 98.9 F 74 20 161/70 88 L 09/19/21 20:00 99.1 F 78 18 162/69 92 L 09/19/21 19:33 94 L 09/19/21 16:00 99.1 F 70 20 184/81 97 Home Medications Medication Instructions Recorded Confirmed Last Taken Type Alendronate Sodium 70 mg 70 mg PO Q7D@0600 09/17/21 09/17/21 Unknown History [Fosamax 70 MG] Cyanocobalamin (Vitamin B-12) 2,500 mcg PO DAILY 09/17/21 09/17/21 Unknown History [Vitamin B12] Furosemide 40 mg [Lasix 40 40 mg PO DAILY 09/17/21 09/17/21 Unknown History MG] Golimumab [Simponi Aria] 50 mg IM UD 09/17/21 09/17/21 Unknown History HydrALAzine HCL 25 MG TAB 25 mg PO TID 09/17/21 09/17/21 Unknown History [Apresoline 25 MG TABLET] Isosorbide Mononitrate [Isosorbide 60 mg PO DAILY 09/17/21 09/17/21 Unknown History Mononitrate ER] Losartan Potassium 50 mg 50 mg PO BID 09/17/21 09/17/21 Unknown History [Cozaar 50 MG] Metformin HCl Xr 500 mg 500 mg PO BID 09/17/21 09/17/21 Unknown History [Glucophage XR 500 MG] Milroy-3 Fatty Acids/Fish Oil [Fish 1 tab PO DAILY 09/17/21 09/17/21 Unknown History Oil 1,000 mg Capsule] Potassium Chloride 10 meq PO BID 09/17/21 09/17/21 Unknown History Current Medications Generic Name Dose Route Start Last Admin Trade Name Freq PRN Reason Stop Dose Admin Alendronate Sodium 70 mg 09/25/21 06:00 Alendronate Sodium 70 Mg Tablet PO 10/25/21 05:59 Q7D@0600 HARMAN Aspirin 81 mg 09/18/21 10:00 09/19/21 10:39 Aspirin 81 Mg Tablet.Ec PO 10/18/21 09:59 81 mg DAILY HARMAN Administration Carvedilol 3.125 mg 09/19/21 22:00 09/20/21 11:16 Carvedilol 3.125 Mg Tablet PO 10/19/21 21:59 3.125 mg BID HARMAN Administration Cyanocobalamin 2,500 mcg 09/19/21 10:00 09/19/21 10:35 Cyanocobalamin 500 Mcg Tablet PO 10/19/21 09:59 2,500 mcg DAILY HARMAN Administration Fish Oil 1,000 mg 09/18/21 11:00 09/19/21 10:35 Milroy-3 Fatty Acids/Fish Oil 1000 Mg Capsule PO 10/18/21 10:59 1,000 mg DAILY HARMAN Administration Folic Acid 1 mg 09/19/21 14:00 09/19/21 14:55 Folic Acid 1 Mg Tablet PO 10/19/21 13:59 1 mg DAILY HARMAN Administration Furosemide 40 mg 09/18/21 10:00 09/20/21 11:16 Furosemide 40 Mg Tablet PO 10/18/21 09:59 40 mg DAILY HARMAN Administration Gabapentin 400 mg 09/18/21 10:00 09/19/21 21:17 Gabapentin 400 Mg Capsule PO 10/18/21 09:59 400 mg TID HARMAN Administration Hydralazine HCl 25 mg 09/18/21 10:00 09/20/21 11:16 Hydralazine Hcl 25 Mg Tablet PO 10/18/21 09:59 25 mg TID HARMAN Administration Hydromorphone HCl 30 mg 09/20/21 07:39 09/20/21 07:52 Hydromorphone Hcl 30 Mg/30 Ml Documentation Supervisor Vial IV 09/25/21 07:38 30 mg UD PRN Administration PAIN Sodium Chloride 1,000 mls @ 80 mls/hr 09/17/21 14:45 09/20/21 10:31 Sodium Chloride 0.9% 1000 Ml IV 10/17/21 14:44 80 mls/hr .[id number] HARMAN Administration Insulin Human Lispro 0 unit 09/17/21 14:36 Insulin Lispro 1 Unit SQ 10/17/21 14:35 UD PRN HYPERGLYCEMIA Isosorbide Mononitrate 60 mg 09/18/21 10:00 09/19/21 10:36 Isosorbide Mononitrate 60 Mg Tab PO 10/18/21 09:59 60 mg DAILY HARMAN Administration Losartan Potassium 50 mg 09/18/21 10:00 09/20/21 11:16 Losartan Potassium 50 Mg Tablet PO 10/18/21 09:59 50 mg BID HARMAN Administration Naloxone HCl 0.2 - 0.4 mg 09/20/21 07:45 Naloxone Hcl 0.4 Mg/Ml Ml IV 10/20/21 07:44 PRN PRN RESP. DEPRESSION / DLOC Ondansetron HCl 4 mg 09/17/21 14:36 Ondansetron Hcl 4 Mg/2 Ml Vial IV 10/17/21 14:35 Q6H PRN PRN NAUSEA/VOMITING Potassium Chloride 10 meq 09/18/21 11:00 09/19/21 21:18 Potassium Chloride 10 Meq Tablet PO 10/18/21 10:59 10 meq BID HARMAN Administration Simvastatin 10 mg 09/18/21 22:00 09/19/21 21:18 Simvastatin 10 Mg Tablet PO 10/18/21 21:59 10 mg HS HARMAN Administration Discontinued Medications Generic Name Dose Route Start Last Admin Trade Name Anuj PRN Reason Stop Dose Admin Aspirin 325 mg 09/17/21 22:00 09/17/21 22:14 Aspirin 325 Mg Tablet.Ec PO 10/17/21 21:59 325 mg HS HARMAN Administration Atorvastatin Calcium 10 mg 09/17/21 22:00 09/17/21 22:14 Atorvastatin Calcium 40 Mg Tablet PO 09/17/21 22:01 10 mg ONCE ONE Administration Bupivacaine HCl Confirm 09/20/21 09:37 Bupivacaine Hcl/Pf 50 Mg/10 Ml Vial Administered 09/20/21 09:38 Dose 100 mg IJ .STK-MED ONE Carvedilol 3.125 mg 09/17/21 22:00 09/17/21 22:15 Carvedilol 6.25 Mg Tablet PO 09/17/21 22:01 3.125 mg ONCE ONE Administration Carvedilol 3.125 mg 09/18/21 10:00 09/19/21 10:39 Carvedilol 6.25 Mg Tablet PO 10/18/21 09:59 3.125 mg BID HARMAN Administration Cefazolin Sodium Confirm 09/20/21 12:58 Cefazolin Sodium 1 Gm Vial Administered 09/20/21 12:59 Dose 2 g .ROUTE .STK-MED ONE Fentanyl Citrate 50 mcg 09/17/21 12:01 09/17/21 12:04 Fentanyl Citrate 100 Mcg/2 Ml* Vial IV 09/17/21 12:02 50 mcg STAT ONE Administration Fentanyl Citrate Confirm 09/17/21 12:02 Fentanyl Citrate 100 Mcg/2 Ml* Vial Administered 09/17/21 12:03 Dose 100 mcg .ROUTE .STK-MED ONE Fentanyl Citrate 50 mcg 09/17/21 12:23 09/17/21 12:33 Fentanyl Citrate 100 Mcg/2 Ml* Vial IV 09/17/21 12:24 50 mcg STAT ONE Administration Fentanyl Citrate Confirm 09/17/21 12:27 Fentanyl Citrate 100 Mcg/2 Ml* Vial Administered 09/17/21 12:28 Dose 100 mcg .ROUTE .STK-MED ONE Fentanyl Citrate 50 mcg 09/19/21 18:24 09/20/21 05:39 Fentanyl Citrate 100 Mcg/2 Ml* Vial IV 09/24/21 18:23 50 mcg Q6HPRN PRN Administration PAIN Folic Acid 1,000 mg 09/19/21 10:00 09/19/21 10:58 Folic Acid 1 Mg Tablet PO 10/19/21 09:59 Not Given DAILY HARMAN Gabapentin 400 mg 09/17/21 22:00 09/17/21 22:14 Gabapentin 400 Mg Capsule PO 09/17/21 22:01 400 mg ONCE ONE Administration Hydralazine HCl 25 mg 09/17/21 22:00 09/17/21 22:13 Hydralazine Hcl 25 Mg Tablet PO 09/17/21 22:01 25 mg ONCE ONE Administration Hydromorphone HCl 1 mg 09/17/21 12:57 09/17/21 12:58 Hydromorphone 1 Mg/1ml Inj 1 Mg/Ml Syringe IV 09/17/21 12:58 1 mg STAT ONE Administration Hydromorphone HCl Confirm 09/17/21 12:56 Hydromorphone 1 Mg/1ml Inj 1 Mg/Ml Syringe Administered 09/17/21 12:57 Dose 1 mg .ROUTE .STK-MED ONE Hydromorphone HCl 1 mg 09/17/21 14:36 09/19/21 10:46 Hydromorphone 1 Mg/1ml Inj 1 Mg/Ml Syringe IV 09/22/21 14:35 1 mg Q1H PRN PRN Administration PAIN Sodium Chloride 1,000 mls @ 999 mls/hr 09/17/21 13:34 09/17/21 14:39 Sodium Chloride 0.9% 1000 Ml IV 09/17/21 14:34 Infused .Q1H1M STA Infusion Sodium Chloride Confirm 09/17/21 13:34 Sodium Chloride 0.9% 1000 Ml Administered 09/17/21 13:35 Dose 1,000 mls @ ud .ROUTE .STK-MED ONE Lactated Ringer's Confirm 09/20/21 09:37 Lactated Ringers Administered 09/20/21 09:38 Dose 1,000 mls @ ud IV .STK-MED ONE Labetalol HCl 10 mg 09/20/21 10:05 09/20/21 10:30 Labetalol Hcl 20 Mg/4 Ml Disp.Syringe IV 09/20/21 10:06 10 mg ONCE ONE Administration Lidocaine HCl Confirm 09/20/21 09:37 Lidocaine Hcl 1% 20 Ml Mdv 20 Ml Ml Administered 09/20/21 09:38 Dose 20 ml .ROUTE .STK-MED ONE Losartan Potassium 50 mg 09/17/21 22:00 09/17/21 22:14 Losartan Potassium 50 Mg Tablet PO 09/17/21 22:01 50 mg ONCE ONE Administration Metformin HCl 500 mg 09/18/21 10:00 Metformin Hcl Er 500 Mg Tab PO 10/18/21 09:59 BID HARMAN Midazolam HCl Confirm 09/20/21 12:15 Midazolam Hcl 2 Mg/2 Ml Vial Administered 09/20/21 12:16 Dose 2 mg .ROUTE .STK-MED ONE Non-Formulary Medication 5 mg 09/18/21 09:48 Prednisone [Prednisone] PO DAILY PRN PRN PAIN Non-Formulary Medication 50 mg 09/18/21 10:00 Golimumab IM 10/18/21 09:59 UD HARMAN Ondansetron HCl 4 mg 09/17/21 12:01 09/17/21 12:04 Ondansetron Hcl 4 Mg/2 Ml Vial IV 09/17/21 12:02 4 mg STAT ONE Administration Ondansetron HCl Confirm 09/17/21 12:02 Ondansetron Hcl 4 Mg/2 Ml Vial Administered 09/17/21 12:03 Dose 4 mg .ROUTE .STK-MED ONE Potassium Chloride 10 meq 09/17/21 22:00 09/17/21 22:15 Potassium Chloride 10 Meq Tablet PO 09/17/21 22:01 10 meq ONCE ONE Administration Propofol Confirm 09/20/21 12:15 Propofol 10 Mg/Ml 20ml Vial Administered 09/20/21 12:16 Dose 200 mg IV .STK-MED ONE Rocuronium Wolverine Confirm 09/20/21 12:15 Rocuronium Wolverine 100 Mg/10ml Vial Administered 09/20/21 12:16 Dose 50 mg .ROUTE .STK-MED ONE Simvastatin Confirm 09/17/21 22:08 Simvastatin 10 Mg Tablet Administered 09/17/21 22:09 Dose 10 mg .ROUTE .STK-MED ONE Simvastatin 10 mg 09/18/21 08:00 Simvastatin 10 Mg Tablet PO 09/18/21 08:01 ONCE ONE Intake & Output (Last 24 hours) 04/09/0609/19/21 09/20/21 09/21/21 11:59 11:59 11:59 11:59 Intake Total 1804 9326 3783 Output Total 307 3327 2388 Balance 1747 -486 -004 Weight 77 kg 77 kg Laboratory Results (Last 24 hours) 09/20/21 09/20/21 09/20/21 11:50 07:42 04:40 WBC RBC Hgb Hct MCV MCH MCHC RDW Plt Count MPV Gran % Eos # (Auto) Absolute Lymphs (auto) Absolute Monos (auto) Lymphocytes % Monocytes % Eosinophils % Basophils % Absolute Granulocytes Basophils # Sodium 136 L Potassium 3.9 Chloride 105 Carbon Dioxide 24 Anion Gap 10.5 BUN 19 H Creatinine 1.00 Estimated GFR 57.0 Glucose 142 H POC Glucometer 140 H 157 H Calcium 8.0 L Magnesium Total Bilirubin 1.10 AST 33 ALT 25 Alkaline Phosphatase 50 Troponin I 0.014 NT-Pro-B Natriuret Pep Serum Total Protein 5.6 L Albumin 3.0 L Vitamin B12 841 TSH 3rd Generation 0.540 09/20/21 09/20/21 09/19/21 04:40 04:40 20:48 WBC 5.8 RBC 2.81 L Hgb 9.2 L Hct 27.9 L MCV 99.3 MCH 32.7 H MCHC 33.0 RDW 12.4 Plt Count 106 L MPV 9.6 Gran % 51.2 Eos # (Auto) 0.11 Absolute Lymphs (auto) 1.83 Absolute Monos (auto) 0.85 Lymphocytes % 31.8 Monocytes % 14.8 H Eosinophils % 1.9 Basophils % 0.3 Absolute Granulocytes 2.94 Basophils # 0.02 Sodium Potassium Chloride Carbon Dioxide Anion Gap BUN Creatinine Estimated GFR Glucose POC Glucometer 153 H Calcium Magnesium Total Bilirubin AST ALT Alkaline Phosphatase Troponin I NT-Pro-B Natriuret Pep 1850 H Serum Total Protein Albumin Vitamin B12 TSH 3rd Generation 09/19/21 09/19/21 09/19/21 17:45 17:45 15:57 WBC 7.2 RBC 3.03 L Hgb 9.9 L Hct 30.9 L MCV 102.0 H MCH 32.7 H MCHC 32.0 RDW 13.0 Plt Count 123 L MPV 9.9 Gran % Eos # (Auto) Absolute Lymphs (auto) Absolute Monos (auto) Lymphocytes % Monocytes % Eosinophils % Basophils % Absolute Granulocytes Basophils # Sodium 136 L Potassium 3.9 Chloride 103 Carbon Dioxide 25 Anion Gap 12.5 BUN 22 H Creatinine 1.17 H Estimated GFR 47.5 Glucose 138 H POC Glucometer 139 H Calcium 8.3 L Magnesium 1.7 Total Bilirubin 1.10 AST 37 H ALT 27 Alkaline Phosphatase 55 Troponin I NT-Pro-B Natriuret Pep Serum Total Protein 6.1 L Albumin 3.4 L Vitamin B12 TSH 3rd Generation Orders (Last 24 hours) Category Date Time Status NPO Diet 09/20/21 01:15 Active ANKLE (3 VIEWS) Routine Exams 09/20/21 Ordered FLUOROSCOPY UP TO 1 HR Routine Exams 09/20/21 Ordered BNP [NT PRO BNP] AM.LAB Lab 09/20/21 04:40 Completed BNP [NT PRO BNP] AM.LAB Lab 09/21/21 04:00 Ordered CBC Stat Lab 09/19/21 17:45 Completed CBC W DIFF AM.LAB Lab 09/20/21 04:40 Completed CBC W DIFF AM.LAB Lab 09/21/21 04:00 Ordered CMP AM.LAB Lab 09/20/21 04:40 Completed CMP Stat Lab 09/19/21 17:45 Completed MAG [MAGNESIUM] Stat Lab 09/19/21 17:45 Completed POCT GLUCOSE Stat Lab 09/19/21 15:57 Completed POCT GLUCOSE Stat Lab 09/19/21 20:48 Completed POCT GLUCOSE Stat Lab 09/20/21 07:42 Completed POCT GLUCOSE Stat Lab 09/20/21 11:50 Completed TROPONIN AM.LAB Lab 09/20/21 04:40 Completed TSH [TSH, 3RD Generation] AM.LAB Lab 09/20/21 04:40 Completed Vitamin B12 DAILY Lab 09/20/21 04:40 Completed Alendronate Sodium 70 mg [Fosamax 70 MG] Med 09/25/21 06:00 Active 70 mg PO Q7D@0600 Bupivacaine HCl/Pf [Bupivacaine 0.5% Vial] Med 09/20/21 09:37 Discontinued 100 mg IJ .STK-MED ONE Carvedilol 3.125 mg [Coreg 3.125 MG] Med 09/19/21 22:00 Active 3.125 mg PO BID Cefazolin Sodium 1 gm [Kefzol 1 gm] Med 09/20/21 12:58 Discontinued 2 g .ROUTE .STK-MED ONE Fentanyl Citrate 100 Mcg/2 ml* [Sublimaze 100 Mcg/2 ml* Med 09/19/21 18:24 Discontinued ] 50 mcg IV Q6HPRN PRN Folic Acid 1 mg [Folate 1 mg] Med 09/19/21 14:00 Active 1 mg PO DAILY Hydromorphone HCl 30 mg/30 ml* [Dilaudid 1 mg/1Ml [employer] Med 09/20/21 07:39 Active *] 30 mg IV UD PRN Labetalol HCl 20 mg/4 ml [Trandate 20 mg/4 ml Med 09/20/21 10:05 Discontinued Syringe] 10 mg IV ONCE ONE Lidocaine HCl 1% 20 ml Mdv [Xylocaine 1% HCl 20 ml Med 09/20/21 09:37 Discontinued Mdv] 20 ml .ROUTE .STK-MED ONE Midazolam HCl 2 mg/2 ml [Versed 2 MG/2 ML Injection* Med 09/20/21 12:15 Discontinued ] 2 mg .ROUTE .STK-MED ONE Naloxone HCl 0.4 mg/ml [Narcan 0.4 MG/ML] Med 09/20/21 07:45 Active 0.2 - 0.4 mg IV PRN PRN Propofol 200 mg/20 ml [Diprivan 200 mg/20 ml] Med 09/20/21 12:15 Discontinued 200 mg IV .STK-MED ONE Ringers Solution,Lactated [Lactated Ringers] 1,000 ml Med 09/20/21 09:37 Discontinued IV UD Rocuronium Wolverine 100 mg/10Ml [Zemuron 100 MG/10 ML] Med 09/20/21 12:15 Discontinued 50 mg .ROUTE .STK-MED ONE Patient Care Notes (Last 24 hours) 09/20/21 11:14 Physical Therapy Note by Pedrito/lic.[id number],Lexii CONT. TO HOLD P.T. INTERVENTION UNTIL AFTER SX. PT. STILL AWAITING CARDIAC CLEARANCE. WILL CHECK W/ NSG RE: ANY NEEDS TO ASSIST W/ TOILETING AND BED MOBILITY PRIOR TO SX. Initialized on 09/20/21 11:14 - END OF NOTE 09/20/21 10:16 Nursing Note by Ruby Farr [id number] spoke everett Hare at Dr Umm hernandez concerning cardiac clearance for pt. Stressed pt scheduled for surgery today @1200, and Clearance is required for surgery to be performed as scheduled. States information will be given to Dr Salomon Initialized on 09/20/21 10:16 - END OF NOTE 09/20/21 10:08 Nursing Note by Lynne Mendoza pt having high blood pressure through the morning. pt pain level has decreased since earlier this AM from a 10 to a 3/10 but blood pressure is still 211/84. Pulse 68. Called Dr. Hodge to notify received order for Labetalol 10mg IV once. Will administer and continue to monitor. Initialized on 09/20/21 10:08 - END OF NOTE 09/20/21 09:56 Nursing Note by Ruby Farr this nurse phoned Dr Umm hernandez to obtain cardiac clearance for pt surgery today. Spoke w [facility] sales representative [employer], stated would send it for needed approval Initialized on 09/20/21 09:56 - END OF NOTE 09/20/21 09:51 Case Management Note by Maki Shah PATIENT SCHEDULED FOR OT TODAY- PER NURSING STAFF STILL WAITING ON CARDIA CLEARANCE AT THIS TIME Initialized on 09/20/21 09:51 - END OF NOTE 09/20/21 08:42 ASSISTANT TECHNICIAN Note by Clara Angel reported blood pressure to nurse 0730 B/P 207/84 retake 0830 B/P 204/88 Initialized on 09/20/21 08:42 - END OF NOTE 09/19/21 21:39 Nursing Note by Inida Sheehan Pt pulled out IV on the previous shift, DR ovalles notified and does NOT order a new IV at this time. Dr Ovalles also orders a CBC w diff, CMP, BNP, B12, Trop, and TSH Initialized on 09/19/21 21:39 - END OF NOTE 09/19/21 18:44 Nursing Note by Mike Garcia STATED PT WAS ACTING CONFUSED AND WEIRD, SLAPPED ICE WATER OUT OF HIS HAND AND BECOMING HOSTILE. ENTERED PTS ROOM, SHE STATED "YOURE NOT MY NORMAL NURSE, WHERES VIJI? SHE WAS MY NURSE" TRIED TO EXPLAIN TO PT AND REORIENT BUT SHE DENIED IT. STATED "YOU GAVE ME THE WRONG MEDICINE, YOURE TRYING TO KILL ME" PT TOOK THIS NURSES BADGE AND PUT IT UNDER HER BLANKET. MULTIPLE STAFF ATTEMPTED TO GET IT BACK BUT PT REFUSED. PT C/O PAIN BUT STATED "YOURE NOT GIVING ME ANY MEDICINE, IM NOT TAKING ANYTHING UNTIL VIJI GETS HERE" CALLED DR HODGE TO INFORM. STATES DILAUDID WILL BE IN HER SYSTEM UNTIL TOMORROW. DRAW CBC, CMP AND MAG NOW AND CALL WITH RESULTS. CALLED DR HODGE WITH RESULTS, NEW ORDER TO DC DILAUDID, START FENTANYL 50MCG IV [id number] Initialized on 09/19/21 18:44 - END OF NOTE 09/19/21 16:00 (created 09/19/21 18:05) Nursing Note by Mike Garcia CALLED DR ESQUIVEL OFFICE TO CHECK ON CARDIAC CLEARANCE STATUS. NURSE STATES IT STILL NEEDS TO BE ADDRESSED THEN THEY WILL FAX IT TO US Initialized on 09/19/21 18:05 - END OF NOTE 09/19/21 15:00 (created 09/19/21 18:06) Nursing Note by Mike Garcia 1500 TODAY PT WAS ASLEEP, WOKE UP WITH CONFUSION AND DROWSY. STATING "YOU GAVE ME THE WRONG MEDICINE, YOU GAVE ME A DIFFERENCE PATIENTS MEDS. YOU GAVE ME CHARLIES MEDS" ATTEMPTED TO REORIENT PT, SHE REFUSED AND BECAME FRUSTRATED. I ASKED WHO EUSEBIO WAS SHE STATED "YOUR PATIENT. YOU GAVE ME HIS 'S MEDICINE" AFTER FEW MINS PT CALMED DOWN AND WAS MORE ORIENTED Initialized on 09/19/21 18:06 - END OF NOTE Code(s): S82.892A - OTH FRACTURE OF LEFT LOWER LEG, INIT FOR CLOS FX (2) Ankle syndesmosis disruption Current Visit: Yes Status: Acute Code(s): S93.439A - SPRAIN OF TIBIOFIBULAR LIGAMENT OF UNSP ANKLE, INIT ENCNTR (3) Trimalleolar fracture of left ankle Current Visit: Yes Status: Acute Code(s): S82.852A - DISPLACED TRIMALLEOLAR FRACTURE OF LEFT LOWER LEG, INIT (4) Diabetes mellitus Current Visit: No Status: Chronic Qualifiers: Diabetes mellitus type: type 2 Diabetes mellitus chcf insulin use: without chcf use Diabetes mellitus complication status: with kidney complications Diabetes mellitus complication detail: with other kidney complication Qualified Code(s): E11.29 - Type 2 diabetes mellitus with other diabetic kidney complication Code(s): E11.9 - TYPE 2 DIABETES MELLITUS WITHOUT COMPLICATIONS (5) HTN (hypertension) Current Visit: No Status: Chronic Qualifiers: Hypertension type: essential hypertension Qualified Code(s): I10 - Essential (primary) hypertension Code(s): I10 - ESSENTIAL (PRIMARY) HYPERTENSION
[2021-09-20] MEDS ORDERED: Sodium Chloride 0.9% 1000 ML 1,000 ML ONE (13:29)
[2021-09-20] MEDS: Imdur 60MG PO SCH (14:52)
[2021-09-20] MEDS: FOLATE 1 MG PO SCH (14:52)
[2021-09-20] MEDS: FISH OIL 1,000 MG CAPSULE PO SCH (14:52)
[2021-09-20] MEDS: ECOTRIN 81 MG PO SCH (14:52)
[2021-09-20] MEDS: Klor Con 10 MEQ PO SCH ×2 (14:53→22:16)
[2021-09-20] MEDS: Vitamin B-12 500 MCG PO SCH (14:53)
[2021-09-20] MEDS: Neurontin 400 MG PO SCH ×3 (14:53→22:16)
[2021-09-20] MEDS ORDERED: BRIDION 200MG/2ML IV ONE (16:30)
[2021-09-20] MEDS ORDERED: Naropin 0.5% 30 ML VIAL ONE (16:31)
[2021-09-20] MEDS ORDERED: Marcaine 0.5%/Epinephrine 10 ML ONE (16:31)
--- NOTE | 2021-09-20 16:32 | XRAY ---
Indication: Left ankle ORIF surgery. Intraoperative fluoroscopy provided for 7 minutes 9 seconds. 42 digital spot images submitted for interpretation ultimately demonstrates lateral fixation plate/screws fixating distal fibula shaft fracture. Single screw fixates heel malleolus fracture. Both fracture apposition/alignment appears anatomic. Correlate with intraoperative findings/report.
[2021-09-20] MEDS ORDERED: TRANDATE 100 MG/20 ML MDV FOR DRIP IV ONE (17:04)
[2021-09-20] MEDS ORDERED: SUBLIMAZE 100 MCG/2 ML ONE (17:08)
--- NOTE | 2021-09-20 17:27 | PCM.NOTE ---
Date and Time: 09/20/211716 Subjective Assessment: Patient postop day 0 status post open reduction internal fixation of the left ankle with syndesmotic reduction. Physical Exam - Narrative Narrative Physical Exam: Podiatry Physical Exam: Posterior splint with sugar tong applied to the left lower extremity clean dry and intact without any evidence of strikethrough. Patient in minimal pain status post popliteal with saphenous block OBJECTIVE DATA Vital Signs: Vital Signs - 24 hr Temp Pulse Resp BP BP Pulse Ox 09/20/21 12:36 98.6 F 83 21 96 09/20/21 11:53 98.7 F 69 18 /84 95 09/20/21 11:16 /84 09/20/21 10:30 / 95 09/20/21 10:07 09/20/21 08:00 98.7 F 76 19 204/88 94 L 09/20/21 07:52 96 09/20/21 04:00 98.9 F 71 21 187/78 96 09/20/21 00:05 94 L 09/20/21 00:00 98.9 F 74 20 161/70 88 L 09/19/21 20:00 99.1 F 78 18 162/69 92 L 09/19/21 19:33 94 L Pain Assessment - Last Documented Pain Intensity 3 Pain Scale Used 0-10 Pain Scale Intake and Output: Intake & Output 09/18/21 09/19/21 09/20/21 09/21/21 11:59 11:59 11:59 11:59 Intake Total 1803 2117 3780 0 Output Total 700 2350 4450 Balance 1103 -233 -670 0 Weight 77 kg 77 kg Lab Results: Lab Results-Last 24 Hours 09/19/21 09/19/21 09/19/21 Range/Units 17:45 17:45 20:48 WBC 7.2 (4.0-10.5) K/mm3 RBC 3.03 L (4.1-5.4) M/mm3 Hgb 9.9 L (12.0-16.0) gm/dl Hct 30.9 L (35-47) % MCV 102.0 H (78-100) fl MCH 32.7 H (26-32) pg MCHC 32.0 (32-36) g/dl RDW 13.0 (11.5-14.0) % Plt Count 123 L (150-450) K/mm3 MPV 9.9 (7.5-11.0) fl Gran % (36.0-66.0) % Eos # (Auto) (0-0.5) Absolute Lymphs (auto) (1.0-4.6) Absolute Monos (auto) (0.0-1.3) Lymphocytes % (24.0-44.0) % Monocytes % (0.0-12.0) % Eosinophils % (0.00-5.0) % Basophils % (0.0-0.4) % Absolute Granulocytes (1.4-6.9) Basophils # (0-0.4) Sodium 136 L (137-145) mmol/L Potassium 3.9 (3.5-5.1) mmol/L Chloride 103 (98-107) mmol/L Carbon Dioxide 25 (22-30) mmol/L Anion Gap 12.5 (5-15) MEQ/L BUN 22 H (7-17) mg/dL Creatinine 1.17 H (0.52-1.04) mg/dL Estimated GFR 47.5 ML/MIN Glucose 138 H (74-106) mg/dL POC Glucometer 153 H (74 to 106) mg/dL Calcium 8.3 L (8.4-10.2) mg/dL Magnesium 1.7 (1.6-2.3) mg/dL Total Bilirubin 1.10 (0.2-1.3) mg/dL AST 37 H (14-36) U/L ALT 27 (0-35) U/L Alkaline Phosphatase 55 (38-126) U/L Troponin I (0.000-0.034) ng/mL NT-Pro-B Natriuret Pep (0-1800) pg/mL Serum Total Protein 6.1 L (6.3-8.2) g/dL Albumin 3.4 L (3.5-5.0) g/dL Vitamin B12 (239-931) pg/mL TSH 3rd Generation (0.47-4.68) mIU/L 09/20/21 09/20/21 09/20/21 Range/Units 04:40 04:40 04:40 WBC 5.8 (4.0-10.5) K/mm3 RBC 2.81 L (4.1-5.4) M/mm3 Hgb 9.2 L (12.0-16.0) gm/dl Hct 27.9 L (35-47) % MCV 99.3 (78-100) fl MCH 32.7 H (26-32) pg MCHC 33.0 (32-36) g/dl RDW 12.4 (11.5-14.0) % Plt Count 106 L (150-450) K/mm3 MPV 9.6 (7.5-11.0) fl Gran % 51.2 (36.0-66.0) % Eos # (Auto) 0.11 (0-0.5) Absolute Lymphs (auto) 1.83 (1.0-4.6) Absolute Monos (auto) 0.85 (0.0-1.3) Lymphocytes % 31.8 (24.0-44.0) % Monocytes % 14.8 H (0.0-12.0) % Eosinophils % 1.9 (0.00-5.0) % Basophils % 0.3 (0.0-0.4) % Absolute Granulocytes 2.94 (1.4-6.9) Basophils # 0.02 (0-0.4) Sodium 136 L (137-145) mmol/L Potassium 3.9 (3.5-5.1) mmol/L Chloride 105 (98-107) mmol/L Carbon Dioxide 24 (22-30) mmol/L Anion Gap 10.5 (5-15) MEQ/L BUN 19 H (7-17) mg/dL Creatinine 1.00 (0.52-1.04) mg/dL Estimated GFR 57.0 ML/MIN Glucose 142 H (74-106) mg/dL POC Glucometer (74 to 106) mg/dL Calcium 8.0 L (8.4-10.2) mg/dL Magnesium (1.6-2.3) mg/dL Total Bilirubin 1.10 (0.2-1.3) mg/dL AST 33 (14-36) U/L ALT 25 (0-35) U/L Alkaline Phosphatase 50 (38-126) U/L Troponin I 0.014 (0.000-0.034) ng/mL NT-Pro-B Natriuret Pep 1850 H (0-1800) pg/mL Serum Total Protein 5.6 L (6.3-8.2) g/dL Albumin 3.0 L (3.5-5.0) g/dL Vitamin B12 841 (239-931) pg/mL TSH 3rd Generation 0.540 (0.47-4.68) mIU/L 09/20/21 09/20/21 Range/Units 07:42 11:50 WBC (4.0-10.5) K/mm3 RBC (4.1-5.4) M/mm3 Hgb (12.0-16.0) gm/dl Hct (35-47) % MCV (78-100) fl MCH (26-32) pg MCHC (32-36) g/dl RDW (11.5-14.0) % Plt Count (150-450) K/mm3 MPV (7.5-11.0) fl Gran % (36.0-66.0) % Eos # (Auto) (0-0.5) Absolute Lymphs (auto) (1.0-4.6) Absolute Monos (auto) (0.0-1.3) Lymphocytes % (24.0-44.0) % Monocytes % (0.0-12.0) % Eosinophils % (0.00-5.0) % Basophils % (0.0-0.4) % Absolute Granulocytes (1.4-6.9) Basophils # (0-0.4) Sodium (137-145) mmol/L Potassium (3.5-5.1) mmol/L Chloride (98-107) mmol/L Carbon Dioxide (22-30) mmol/L Anion Gap (5-15) MEQ/L BUN (7-17) mg/dL Creatinine (0.52-1.04) mg/dL Estimated GFR ML/MIN Glucose (74-106) mg/dL POC Glucometer 157 H 140 H (74 to 106) mg/dL Calcium (8.4-10.2) mg/dL Magnesium (1.6-2.3) mg/dL Total Bilirubin (0.2-1.3) mg/dL AST (14-36) U/L ALT (0-35) U/L Alkaline Phosphatase (38-126) U/L Troponin I (0.000-0.034) ng/mL NT-Pro-B Natriuret Pep (0-1800) pg/mL Serum Total Protein (6.3-8.2) g/dL Albumin (3.5-5.0) g/dL Vitamin B12 (239-931) pg/mL TSH 3rd Generation (0.47-4.68) mIU/L Radiology Exams: Radiology Procedures Category Date Time Status ANKLE (3 VIEWS) Routine Exams 09/20/21 15:48 Completed ARTERIAL BILAT LOWER EXTREMITY [US] Routine Exams 09/19/21 12:10 Completed CAROTID BILATERAL [US] Routine Exams 09/19/21 08:00 Completed CHEST 1 VIEW (PORTABLE) Stat Exams 09/20/21 17:16 Taken ECHO W/2D AND DOPPLER [US] Routine Exams 09/19/21 08:00 Taken FLUOROSCOPY UP TO 1 HR Routine Exams 09/20/21 15:48 Taken Multi-Disciplinary Progress Notes: Multi-Disciplinary Progress Notes 09/20/21 11:14 Physical Therapy Note by [id number],Lexii CONT. TO HOLD P.T. INTERVENTION UNTIL AFTER SX. PT. STILL AWAITING CARDIAC CLEARANCE. WILL CHECK W/ NSG RE: ANY NEEDS TO ASSIST W/ TOILETING AND BED MOBILITY PRIOR TO SX. Initialized on 09/20/21 11:14 - END OF NOTE 09/20/21 09:51 Case Management Note by Maki Shah PATIENT SCHEDULED FOR OT TODAY- PER NURSING STAFF STILL WAITING ON CARDIA CLEARANCE AT THIS TIME Initialized on 09/20/21 09:51 - END OF NOTE Assessment/Plan (1) Trimalleolar fracture of left ankle Current Visit: Yes Status: Acute Assessment & Plan: Patient postop day 0 Pain control [place] 5/325 mg p.o. every 4 hours for pain. Dilaudid for severe pain as needed. DVT prophylaxis: Lovenox Infection prophylaxis: Levofloxacin 500 mg p.o. daily for 10 days Nonweightbearing to left lower extremity. Incentive spirometry Antiembolism stocking to right lower extremity with sequential compression device Dressings to remain clean dry and intact with the foot orthogonal relative to the longitudinal axis of the leg with no strikethrough on posterior splint. Physical therapy for assessment postsurgical nonweightbearing to the left lower extremity Social work for rehab facility placement Will follow closely Code(s): S82.852A - DISPLACED TRIMALLEOLAR FRACTURE OF LEFT LOWER LEG, INIT (2) Ankle syndesmosis disruption Current Visit: Yes Status: Acute Code(s): S93.439A - SPRAIN OF TIBIOFIBULAR LIGAMENT OF UNSP ANKLE, INIT ENCNTR (3) Pain in left ankle and joints of left foot Current Visit: Yes Status: Acute Code(s): M25.572 - PAIN IN LEFT ANKLE AND JOINTS OF LEFT FOOT (4) Risk for falls Current Visit: Yes Status: Acute Code(s): Z91.81 - HISTORY OF FALLING (5) Gastroenteritis Current Visit: No Status: Acute Code(s): K52.9 - NONINFECTIVE GASTROENTERITIS AND COLITIS, UNSPECIFIED (6) Ankle fracture, left Current Visit: Yes Status: Acute Qualifiers: Encounter type: subsequent encounter Fracture type: closed Fracture healing: with routine healing Qualified Code(s): S82.892D - Other fracture of left lower leg, subsequent encounter for closed fracture with routine healing Code(s): S82.892A - OTH FRACTURE OF LEFT LOWER LEG, INIT FOR CLOS FX (7) COPD exacerbation Current Visit: No Status: Acute Code(s): J44.1 - CHRONIC OBSTRUCTIVE PULMONARY DISEASE W (ACUTE) EXACERBATION (8) Fever Current Visit: No Status: Acute Code(s): R50.9 - FEVER, UNSPECIFIED (9) Failure of outpatient treatment Current Visit: No Status: Acute Code(s): Z78.9 - OTHER SPECIFIED HEALTH STATUS (10) Fall Current Visit: No Status: Acute Qualifiers: Code(s): W19.XXXA - UNSPECIFIED FALL, INITIAL ENCOUNTER (11) DVT prophylaxis Current Visit: No Status: Acute Code(s): YBJ0791 - (12) Hypoxia Current Visit: No Status: Acute Code(s): R09.02 - HYPOXEMIA
--- NOTE | 2021-09-20 17:33 | XRAY ---
Indication: Hypoxia. Postop pain. Comparison: September 17, 2021. Portable chest less inflated with new minimal bibasilar infiltrates versus atelectasis. Remaining heart and upper lungs unremarkable. No pneumothorax.
[2021-09-20] MEDS: Zocor 10MG PO SCH (22:16)
[2021-09-21 05:23] LABS: Absolute Neutrophil Ct (ANC) 5.57 (1.4-6.9); Basophil (Absolute #) 0.02 (0-0.4); Eosinophil % 0.4 % (0.00-5.0); Eosinophil (Absolute #) 0.03 (0-0.5); Hemoglobin 9.7 gm/dl (12.0-16.0); Lymphocyte (Absolute #) 1.79 (1.0-4.6); Lymphocytes % 21.2 % (24.0-44.0); Mean Cell Volume 99.3 fl (78-100); Mean Corpuscular Hemoglobin 32.1 pg (26-32); Mean Corpuscular Hgb Concent. 32.3 g/dl (32-36); Mean Platelet Volume 9.8 fl (7.5-11.0); Monocyte (Absolute #) 1.05 (0.0-1.3); Monocytes % 12.4 % (0.0-12.0); Neutrophil % 65.8 % (36.0-66.0); Platelet Count 125 K/mm3 (150-450); Red Blood Count 3.02 M/mm3 (4.1-5.4); Red Cell Distribution Width 12.6 % (11.5-14.0); White Blood Count 8.5 K/mm3 (4.0-10.5)
[2021-09-21] MEDS: Sodium Chloride 0.9% 1000 ML 1,000 ML IV SCH (06:23)
--- NOTE | 2021-09-21 09:38 | OP ---
SURGERY DATE/TIME: 09/20/2021 1237 PREOPERATIVE DIAGNOSIS: Trimalleolar fracture left ankle with syndesmotic disruption. POSTOPERATIVE DIAGNOSIS: Trimalleolar fracture left ankle with syndesmotic disruption. PROCEDURE: Open reduction internal fixation of the left ankle with syndesmotic reduction. SURGEON: Sebas Snow DPM. [employer] SUPERVISOR: None. ANESTHESIA: General plus postoperative popliteal and saphenous block to the left lower extremity. See anesthesia report for details. HEMOSTASIS: Thigh tourniquet set to 300 mm of Mercury for 120 minutes total tourniquet time. ESTIMATED BLOOD LOSS: Less than 20 cc. MATERIALS: Sarahi one-third tibial 10 hole dynamic compression plate with 3.5 mm locking and nonlocking screws as well as two - 3.5 mm x 45 mm syndesmotic screws and a 70 mm partially threaded medial malleolar screw, 2-0 Vicryl and surgical lucio. INJECTABLES: See anesthesia report for details. INDICATION FOR SURGERY: Chetna is a very pleasant 80-year-old female who presented to the emergency department on Sunday after a syncopal episode and fall resulting in a traumatic ankle fracture to the left ankle. The patient was seen in the emergency department and was consulted and admitted for syncopal episode resulting in a traumatic injury to the ankle. The patient wishes to proceed as she is largely ambulatory and would like to continue to do so to proceed with surgical intervention at this time. The patient was worked up and assessed to have adequate healing capability although she is a diabetic, has rheumatoid arthritis as well as lupus and is being treated for all three. The patient is still an adequate surgical candidate due to her independence and mobility. The patient understands all risks, benefits and complications of surgical intervention including but not limited to delayed skin healing, nonskin healing, skin healing issues, delayed union, nonunion, possibility of pain and arthritis relatively quickly after a traumatic injury like this. The patient understands that due to patient factors and her lifestyle, she will likely need rehab following surgical fixation of the ankle. The patient has been described the procedure and the possible risks, complications and benefits and wishes to proceed at this time. She understands no guarantees were provided as to the outcome of surgical intervention as this is traumatic injury, likely her mobility will not be the same to prior to the injury and procedure. The patient understands all of this and wishes to proceed at this time with surgical intervention. DESCRIPTION OF PROCEDURE AND FINDINGS: The patient is brought into the OR and placed on the OR table in the supine position. At this time, a thigh tourniquet was placed on the patient's left thigh tourniquet was placed on the patient's left thigh and the tourniquet was set to 300 mm of Mercury. At this time, the left lower extremity was prepped and draped in the typical sterile fashion and the extremity was lowered onto the surgical field. At this time, Ioban was utilized to block off the surgical site. Fluoroscopy was brought in and an Esmarch was utilized to exsanguinate the leg while the tourniquet was inflated. At this time, fluoroscopy was utilized to identify the fracture site and surgical planning was performed. At this time, a 15 blade was utilized to make an incision at the posterior border of the fibula being careful through the subcutaneous dissection utilizing combination of sharp and blunt dissection being careful not to damage any neurovascular structures. At this time, the sural nerve was encountered and retracted out of the surgical field. The fracture site was then encountered and deemed to be extremely comminuted. At this time, a gentle distraction of the ankle was adequate to bring the fibula out to length. At this time, the lobster reduction clamps and point of reduction forceps as well as a plate to bone reduction clamp was utilized to hold the fracture in its ideal position at the ankle and a one-third tibial plate was applied to the lateral aspect of the ankle with the ankle mortise lining up and a dime sign as well as Shentons line being present at the lateral aspect at the lateral aspect of the talar dome and lateral talar process respectively. At this time, this was checked under fluoroscopy and deemed to be adequate. Attention then was directed to the medial malleolus fragment which a 15 blade was utilized to make an incision at the medial aspect of the ankle this was then deepened utilizing a combination of sharp and blunt dissection identifying the fracture site and examining the medial talar dome from this opening which appeared to be free of any osteochondral defects and no arthrotomy was necessary for this portion of the procedure. A K-wire was utilized to stabilize the anterior collicular fragment that had avulsed. Deltoid appeared to be intact at this time so no repair of this was necessary. A 70 mm x 3.5 mm partially threaded cannulated compression screw was inserted from the tip of the anterior colliculus to the long axis was inserted and deemed to be in adequate position. At this time, syndesmotic stress test was performed utilizing internal rotation of the tibia with external rotation of the ankle and deemed to be ruptured which was deemed to be obvious from the presurgical film. This was reduced utilizing a reduction forceps at the anterior one-third of the tibia as well and the peroneal groove of the fibula. The positions were deemed to be adequate. At this time, two syndesmotic screws were introduced 2 to 5 cm above the tibial plafond in a slightly converging-type fashion 30 degrees from the longitudinal axis of the fibula, seven cortices were captured in order to stabilize the syndesmosis. Final films were assessed at this time and deemed to be in adequate position at the ankle joint with ankle mortise being equal and confluent throughout and the length of the fibula deemed to be adequate for healing. This was checked on multiple views of fluoroscopy. Following this, copious amounts of sterile saline were utilized to flush the surgical site. At this time the tourniquet was then dropped providing for an internal flush for the surgical site and a closure was maintained with 2-0 Vicryl and surgical skin lucio in an everted mattress-type fashion. A postoperative dressing consisting of Betadine, Adaptic 4x4, Kerlix was applied to the left lower extremity with a well-padded posterior splint with Sugar-Tong to the left lower extremity secured with a 4-inch and 6-inch RUSSEL. The patient then underwent a popliteal and saphenous block. See anesthesia report for details. The patient was returned to the postoperative anesthesia care unit with vital signs stable and vascular status intact. The patient handled the procedure without complication. Postoperative orders as indicated in the patient's chart.
--- NOTE | 2021-09-21 09:46 | XRAY ---
7 minutes 9 seconds of fluoroscopy was used in surgery for a left ankle ORIF.
[2021-09-21] MEDS: Vitamin B-12 500 MCG PO SCH (10:01)
[2021-09-21] MEDS: ECOTRIN 81 MG PO SCH (10:01)
[2021-09-21] MEDS: Coreg 3.125 MG PO SCH ×2 (10:01→21:38)
[2021-09-21] MEDS: FISH OIL 1,000 MG CAPSULE PO SCH (10:01)
[2021-09-21] MEDS: Levofloxacin 500 MG Tablet PO SCH (10:01)
[2021-09-21] MEDS: Neurontin 400 MG PO SCH ×3 (10:02→21:38)
[2021-09-21] MEDS: Cozaar 50 MG PO SCH ×2 (10:02→21:38)
[2021-09-21] MEDS: Imdur 60MG PO SCH (10:02)
[2021-09-21] MEDS: FOLATE 1 MG PO SCH (10:02)
[2021-09-21] MEDS: Lasix 40 MG PO SCH (10:03)
[2021-09-21] MEDS: Apresoline 25 MG TABLET PO SCH ×3 (10:03→21:38)
[2021-09-21] MEDS: Klor Con 10 MEQ PO SCH ×2 (10:03→21:37)
[2021-09-21] MEDS: ENOXAPARIN SODIUM SQ SCH (10:20)
[2021-09-21] MEDS: NORCO 5/325 MG PO PRN ×3 (11:30→20:17)
--- NOTE | 2021-09-21 14:46 | ECHO ---
DATE OF PROCEDURE: 09/19/2021 CLINICAL INFORMATION: Syncope. The M-mode 2D, and Doppler echocardiogram including color flow Doppler shows the left ventricle is normal in size at 5.1 cm. The apex is not well visualized. The septal wall thickness is increased at 1.6 cm. The left ventricular posterior wall thickness is 0.9 cm. There is normal contractility of the left ventricle. The ejection fraction is calculated to be 80%. The mitral valve E/A inflow velocity ratio is decreased at 0.8 consistent with possible impaired left ventricular relaxation. The right ventricle is grossly normal. The left atrium is normal in size at 3.3 cm. The interatrial septum is intact. The right atrium is normal. The aortic valve opens well. There is no aortic regurgitation. There is mitral valve calcification associated with mild mitral regurgitation. There is mild tricuspid regurgitation. The right ventricular systolic pressure is calculated to be 25 mm of Mercury. The pulmonic valve is not well visualized. The aortic root is normal at 3.2 cm. There is no pericardial effusion present. IMPRESSION: 1) NORMAL CONTRACTILITY OF THE LEFT VENTRICLE. 2) MODERATE ASYMMETRIC LEFT VENTRICULAR HYPERTROPHY. 3) POSSIBLE IMPAIRED LEFT VENTRICULAR RELAXATION. 4) MILD MITRAL REGURGITATION. 5) MILD TRICUSPID REGURGITATION. 6) NORMAL RIGHT VENTRICULAR SYSTOLIC PRESSURE.
--- NOTE | 2021-09-21 17:41 | PCM.NOTE ---
Date and Time: 09/21/211740 Subjective Assessment: Patient postop day 1 status post open reduction internal fixation of the left ankle with syndesmotic reduction.Minimal complaints of pain patient indicates that the pain has significantly improved from prior to surgical intervention. Indicates that she has voided Stephens in place. She does endorse some calf pain to the bilateral lower extremity however denies any shortness of breath or cough.She currently denies any constitutional symptoms of infection. She denies any other pedal complaints at this time Physical Exam - Narrative Narrative Physical Exam: Podiatry Physical Exam Foot warm to the touch to the bilateral lower extremity equal and symmetrical sensation. Patient is able to wiggle toes. Minimal pain with compression to calf. OBJECTIVE DATA Vital Signs: Vital Signs - 24 hr Temp Pulse Resp BP Pulse Ox 09/21/21 16:05 97.7 F 61 19 135/60 94 L 09/21/21 11:24 98.4 F 67 17 151/67 96 09/21/21 07:13 97.3 F 67 17 173/72 94 L 09/21/21 06:56 94 L 09/21/21 04:00 99.8 F 77 18 187/80 91 L 09/20/21 21:15 99.3 F 78 18 181/72 92 L 09/20/21 20:15 80 18 167/90 93 L 09/20/21 20:05 92 L 09/20/21 18:45 78 24 182/78 90 L 09/20/21 18:15 78 182/78 91 L 09/20/21 18:00 98.7 F 78 23 193/84 90 L Pain Assessment - Last Documented Pain Intensity 2 Pain Scale Used [facility] Intake and Output: Intake & Output 09/19/21 09/20/21 09/21/21 09/22/21 11:59 11:59 11:59 11:59 Intake Total 2117 3780 2240 240 Output Total 2350 4450 2800 Balance -233 670 -560 240 Weight 77 kg 77 kg Lab Results: Lab Results-Last 24 Hours 09/20/21 09/21/21 09/21/21 Range/Units 22:24 04:30 04:30 WBC 8.5 (4.0-10.5) K/mm3 RBC 3.02 L (4.1-5.4) M/mm3 Hgb 9.7 L (12.0-16.0) gm/dl Hct 30.0 L (35-47) % MCV 99.3 (78-100) fl MCH 32.1 H (26-32) pg MCHC 32.3 (32-36) g/dl RDW 12.6 (11.5-14.0) % Plt Count 125 L (150-450) K/mm3 MPV 9.8 (7.5-11.0) fl Gran % 65.8 (36.0-66.0) % Eos # (Auto) 0.03 (0-0.5) Absolute Lymphs (auto) 1.79 (1.0-4.6) Absolute Monos (auto) 1.05 (0.0-1.3) Lymphocytes % 21.2 L (24.0-44.0) % Monocytes % 12.4 H (0.0-12.0) % Eosinophils % 0.4 (0.00-5.0) % Basophils % 0.2 (0.0-0.4) % Absolute Granulocytes 5.57 (1.4-6.9) Basophils # 0.02 (0-0.4) POC Glucometer 139 H (74 to 106) mg/dL NT-Pro-B Natriuret Pep 5350 H (0-1800) pg/mL 09/21/21 09/21/21 09/21/21 Range/Units 06:52 11:17 16:00 WBC (4.0-10.5) K/mm3 RBC (4.1-5.4) M/mm3 Hgb (12.0-16.0) gm/dl Hct (35-47) % MCV (78-100) fl MCH (26-32) pg MCHC (32-36) g/dl RDW (11.5-14.0) % Plt Count (150-450) K/mm3 MPV (7.5-11.0) fl Gran % (36.0-66.0) % Eos # (Auto) (0-0.5) Absolute Lymphs (auto) (1.0-4.6) Absolute Monos (auto) (0.0-1.3) Lymphocytes % (24.0-44.0) % Monocytes % (0.0-12.0) % Eosinophils % (0.00-5.0) % Basophils % (0.0-0.4) % Absolute Granulocytes (1.4-6.9) Basophils # (0-0.4) POC Glucometer 133 H 166 H 121 H (74 to 106) mg/dL NT-Pro-B Natriuret Pep (0-1800) pg/mL Radiology Exams: Radiology Procedures Category Date Time Status ANKLE (3 VIEWS) Routine Exams 09/20/21 10:11 Completed CHEST 1 VIEW (PORTABLE) Stat Exams 09/20/21 10:11 Completed FLUOROSCOPY UP TO 1 HR Routine Exams 09/20/21 10:11 Completed Multi-Disciplinary Progress Notes: Multi-Disciplinary Progress Notes 09/21/21 10:01 Case Management Note by Maki Shah S/Neema PATIENT AND AGREEABLE TO REHAB. THEY WOULD LIKE PATIENT TO GO TO [facility]. REFERRAL FAXED AT THIS TIME Initialized on 09/21/21 10:01 - END OF NOTE 09/21/21 09:22 Case Management Note by Maki Shah/Neema HODGE- HE WOULD LIKE PATIENT TO TO GO TO [facility] FOR REHAB. HE ALSO ORDERED TO DC PATIENT'S DETAIL SERGEANT. START PATIENT ON PO [place]. ORDERS ENTERED AT THIS TIME. PRIMARY RN NOTIFIED Initialized on 09/21/21 09:22 - END OF NOTE Assessment/Plan (1) Trimalleolar fracture of left ankle Current Visit: Yes Status: Acute Assessment & Plan: Patient progressing without complication status post open reduction internal fixation of trimalleolar fracture with syndesmotic reduction. Patient is postop day #1. Pain control [place] 5/325 mg p.o. every 4 hours for pain. Dilaudid for severe pain as needed. DVT prophylaxis: Lovenox 40 mg subcu daily. On discharge switch to aspirin 325 mg p.o. daily Until weightbearing Infection prophylaxis: Levofloxacin 500 mg p.o. daily for 10 days Nonweightbearing to left lower extremity. Incentive spirometry Antiembolism stocking to right lower extremity with sequential compression device Dressings to remain clean dry and intact with the foot orthogonal relative to the longitudinal axis of the leg with no strikethrough on posterior splint. Physical therapy for assessment postsurgical nonweightbearing to the left lower extremity Social work for rehab facility placement. Okay for discharge from my standpoint. Patient will need follow-up appointment 1 week from date of surgery upon placement Will follow closely Code(s): S82.852A - DISPLACED TRIMALLEOLAR FRACTURE OF LEFT LOWER LEG, INIT (2) Ankle syndesmosis disruption Current Visit: Yes Status: Acute Code(s): S93.439A - SPRAIN OF TIBIOFIBULAR LIGAMENT OF UNSP ANKLE, INIT ENCNTR (3) Pain in left ankle and joints of left foot Current Visit: Yes Status: Acute Code(s): M25.572 - PAIN IN LEFT ANKLE AND JOINTS OF LEFT FOOT (4) Risk for falls Current Visit: Yes Status: Acute Code(s): Z91.81 - HISTORY OF FALLING (5) Gastroenteritis Current Visit: No Status: Acute Code(s): K52.9 - NONINFECTIVE GASTROENTERITIS AND COLITIS, UNSPECIFIED (6) Ankle fracture, left Current Visit: Yes Status: Acute Qualifiers: Encounter type: subsequent encounter Fracture type: closed Fracture healing: with routine healing Qualified Code(s): S82.892D - Other fracture of left lower leg, subsequent encounter for closed fracture with routine healing Code(s): S82.892A - OTH FRACTURE OF LEFT LOWER LEG, INIT FOR CLOS FX (7) COPD exacerbation Current Visit: No Status: Acute Code(s): J44.1 - CHRONIC OBSTRUCTIVE PULMONARY DISEASE W (ACUTE) EXACERBATION (8) Fever Current Visit: No Status: Acute Code(s): R50.9 - FEVER, UNSPECIFIED (9) Failure of outpatient treatment Current Visit: No Status: Acute Code(s): Z78.9 - OTHER SPECIFIED HEALTH STATUS (10) Fall Current Visit: No Status: Acute Qualifiers: Code(s): W19.XXXA - UNSPECIFIED FALL, INITIAL ENCOUNTER (11) DVT prophylaxis Current Visit: No Status: Acute Code(s): JII6343 - (12) Hypoxia Current Visit: No Status: Acute Code(s): R09.02 - HYPOXEMIA
--- NOTE | 2021-09-21 21:32 | PCM.NOTE ---
Date and Time: 09/21/212130 Subjective Assessment: doing better. s/p surgery - Review of Systems Constitutional: No Fever, No Chills Eyes: No Symptoms Ears, Nose, & Throat: No Symptoms Respiratory: No Cough, No Short Of Breath Cardiac: No Chest Pain, No Edema, No Syncope Abdominal/Gastrointestinal: No Abdominal Pain, No Nausea, No Vomiting, No Diarrhea Genitourinary Symptoms: No Dysuria Musculoskeletal: No Back Pain, No Neck Pain Skin: No Rash Neurological: No Dizziness, No Focal Weakness, No Sensory Changes Psychological: No Symptoms Endocrine: No Symptoms Hematologic/Lymphatic: No Symptoms Immunological/Allergic: No Symptoms Objective Exam General Appearance: no apparent distress, alert Neurologic Exam: alert, oriented x 3, cooperative, normal mood/affect, nml cerebellar function, sensation nml, No motor deficits Skin Exam: normal color, warm, dry Wound Assessment: Skin/Wound Assessment Wound/Incision Assessment Start: 09/20/21 23:12 Text: Status: Active Freq: Q6H Protocol: Document 09/21/21 14:00 BECERRA (Rec: 09/21/21 14:30 BECERRA [id number]) Wound/Incision Assessment Left Ankle Wound Assessment Shift Assessment Wound Type Incision Dressing Status Dry & Intact Drainage Amount None Comment patient able to wiggle toes and can feel touch. cap refill <3. toes are pink and warm Eye Exam: PERRL, EOMI, eyes nml inspection Ears, Nose, Throat Exam: normal ENT inspection, pharynx normal, moist mucous membranes Neck Exam: normal inspection, non-tender, supple, full range of motion Respiratory Exam: normal breath sounds, lungs clear, No respiratory distress Cardiovascular Exam: regular rate/rhythm, normal heart sounds Gastrointestinal/Abdomen Exam: soft, No tenderness, No mass Extremity Exam: normal inspection, normal range of motion Back Exam: normal inspection, normal range of motion, No CVA tenderness, No vertebral tenderness Pelvic Exam: deferred Rectal Exam: deferred OBJECTIVE DATA Vital Signs: Vital Signs - 24 hr Temp Pulse Resp BP Pulse Ox 09/21/21 19:03 97 09/21/21 16:05 97.7 F 61 19 135/60 94 L 09/21/21 11:24 98.4 F 67 17 151/67 96 09/21/21 07:13 97.3 F 67 17 173/72 94 L 09/21/21 06:56 94 L 09/21/21 04:00 99.8 F 77 18 187/80 91 L Pain Assessment - Last Documented Pain Intensity 8 Pain Scale Used 0-10 Pain Scale Intake and Output: Intake & Output 09/19/21 09/20/21 09/21/21 09/22/21 11:59 11:59 11:59 11:59 Intake Total 2117 3780 2240 1233 Output Total 2350 4450 2800 1250 Balance -233 -670 -560 -17 Weight 77 kg 77 kg Lab Results: Lab Results-Last 24 Hours 09/20/21 09/21/21 09/21/21 Range/Units 22:24 04:30 04:30 WBC 8.5 (4.0-10.5) K/mm3 RBC 3.02 L (4.1-5.4) M/mm3 Hgb 9.7 L (12.0-16.0) gm/dl Hct 30.0 L (35-47) % MCV 99.3 (78-100) fl MCH 32.1 H (26-32) pg MCHC 32.3 (32-36) g/dl RDW 12.6 (11.5-14.0) % Plt Count 125 L (150-450) K/mm3 MPV 9.8 (7.5-11.0) fl Gran % 65.8 (36.0-66.0) % Eos # (Auto) 0.03 (0-0.5) Absolute Lymphs (auto) 1.79 (1.0-4.6) Absolute Monos (auto) 1.05 (0.0-1.3) Lymphocytes % 21.2 L (24.0-44.0) % Monocytes % 12.4 H (0.0-12.0) % Eosinophils % 0.4 (0.00-5.0) % Basophils % 0.2 (0.0-0.4) % Absolute Granulocytes 5.57 (1.4-6.9) Basophils # 0.02 (0-0.4) POC Glucometer 139 H (74 to 106) mg/dL NT-Pro-B Natriuret Pep 5350 H (0-1800) pg/mL 09/21/21 09/21/21 09/21/21 Range/Units 06:52 11:17 16:00 WBC (4.0-10.5) K/mm3 RBC (4.1-5.4) M/mm3 Hgb (12.0-16.0) gm/dl Hct (35-47) % MCV (78-100) fl MCH (26-32) pg MCHC (32-36) g/dl RDW (11.5-14.0) % Plt Count (150-450) K/mm3 MPV (7.5-11.0) fl Gran % (36.0-66.0) % Eos # (Auto) (0-0.5) Absolute Lymphs (auto) (1.0-4.6) Absolute Monos (auto) (0.0-1.3) Lymphocytes % (24.0-44.0) % Monocytes % (0.0-12.0) % Eosinophils % (0.00-5.0) % Basophils % (0.0-0.4) % Absolute Granulocytes (1.4-6.9) Basophils # (0-0.4) POC Glucometer 133 H 166 H 121 H (74 to 106) mg/dL NT-Pro-B Natriuret Pep (0-1800) pg/mL Radiology Exams: Radiology Procedures Category Date Time Status ANKLE (3 VIEWS) Routine Exams 09/20/21 10:11 Completed CHEST 1 VIEW (PORTABLE) Stat Exams 09/20/21 10:11 Completed FLUOROSCOPY UP TO 1 HR Routine Exams 09/20/21 10:11 Completed Multi-Disciplinary Progress Notes: Multi-Disciplinary Progress Notes 09/21/21 10:01 Case Management Note by Maki Shah/Neema PATIENT AND AGREEABLE TO REHAB. THEY WOULD LIKE PATIENT TO GO TO [facility]. REFERRAL FAXED AT THIS TIME Initialized on 09/21/21 10:01 - END OF NOTE 09/21/21 09:22 Case Management Note by Maki Shah/Neema HODGE- HE WOULD LIKE PATIENT TO TO GO TO [facility] FOR REHAB. HE ALSO ORDERED TO DC PATIENT'S OIL BURNER. START PATIENT ON PO NORCO. ORDERS ENTERED AT THIS TIME. PRIMARY RN NOTIFIED Initialized on 09/21/21 09:22 - END OF NOTE Assessment/Plan (1) Ankle fracture, left Current Visit: Yes Status: Acute Qualifiers: Encounter type: subsequent encounter Fracture type: closed Fracture healing: with routine healing Qualified Code(s): S82.892D - Other fracture of left lower leg, subsequent encounter for closed fracture with routine healing Assessment & Plan: Chief Complaint Diagnosis FRACTURED L ANKLE, SYNCOPAL EPISODE, FALL AT HOME Allergies Allergy/AdvReac Type Severity Reaction Status Date / Time No Known Drug Allergies Allergy Verified 09/17/21 12:13 Vital Signs (Last 24 hours) Temp Pulse Resp BP Pulse Ox 09/21/21 19:03 97 09/21/21 16:05 97.7 F 61 19 135/60 94 L 09/21/21 11:24 98.4 F 67 17 151/67 96 09/21/21 07:13 97.3 F 67 17 173/72 94 L 09/21/21 06:56 94 L 09/21/21 04:00 99.8 F 77 18 187/80 91 L Home Medications Medication Instructions Recorded Confirmed Last Taken Type Alendronate Sodium 70 mg 70 mg PO Q7D@0600 09/17/21 09/17/21 Unknown History [Fosamax 70 MG] Cyanocobalamin (Vitamin B-12) 2,500 mcg PO DAILY 09/17/21 09/17/21 Unknown History [Vitamin B12] Furosemide 40 mg [Lasix 40 40 mg PO DAILY 09/17/21 09/17/21 Unknown History MG] Golimumab [Simponi Aria] 50 mg IM UD 09/17/21 09/17/21 Unknown History HydrALAzine HCL 25 MG TAB 25 mg PO TID 09/17/21 09/17/21 Unknown History [Apresoline 25 MG TABLET] Isosorbide Mononitrate [Isosorbide 60 mg PO DAILY 09/17/21 09/17/21 Unknown History Mononitrate ER] Losartan Potassium 50 mg 50 mg PO BID 09/17/21 09/17/21 Unknown History [Cozaar 50 MG] Metformin HCl Xr 500 mg 500 mg PO BID 09/17/21 09/17/21 Unknown History [Glucophage XR 500 MG] Ranger-3 Fatty Acids/Fish Oil [Fish 1 tab PO DAILY 09/17/21 09/17/21 Unknown History Oil 1,000 mg Capsule] Potassium Chloride 10 meq PO BID 09/17/21 09/17/21 Unknown History Current Medications Generic Name Dose Route Start Last Admin Trade Name Freq PRN Reason Stop Dose Admin Hydrocodone Bitart/Acetaminophen 1 tab 09/21/21 09:22 09/21/21 20:17 Hydrocodone/Apap 5/325 Mg Tablet PO 09/26/21 09:21 1 tab Q4H PRN PRN Administration PAIN Alendronate Sodium 70 mg 09/25/21 06:00 Alendronate Sodium 70 Mg Tablet PO 10/25/21 05:59 Q7D@0600 HARMAN Aspirin 81 mg 09/18/21 10:00 09/21/21 10:01 Aspirin 81 Mg Tablet.Ec PO 10/18/21 09:59 81 mg DAILY HARMAN Administration Carvedilol 3.125 mg 09/19/21 22:00 09/21/21 10:01 Carvedilol 3.125 Mg Tablet PO 10/19/21 21:59 3.125 mg BID HARMAN Administration Cyanocobalamin 2,500 mcg 09/19/21 10:00 09/21/21 10:01 Cyanocobalamin 500 Mcg Tablet PO 10/19/21 09:59 2,500 mcg DAILY HARMAN Administration Enoxaparin Sodium 40 mg 09/21/21 10:00 09/21/21 10:20 Enoxaparin Sodium 40 Mg/0.4 Ml Syringe SQ 10/21/21 09:59 40 mg DAILY HARMAN Administration Fish Oil 1,000 mg 09/18/21 11:00 09/21/21 10:01 Ranger-3 Fatty Acids/Fish Oil 1000 Mg Capsule PO 10/18/21 10:59 1,000 mg DAILY HARMAN Administration Folic Acid 1 mg 09/19/21 14:00 09/21/21 10:02 Folic Acid 1 Mg Tablet PO 10/19/21 13:59 1 mg DAILY HARMAN Administration Furosemide 40 mg 09/18/21 10:00 09/21/21 10:03 Furosemide 40 Mg Tablet PO 10/18/21 09:59 40 mg DAILY HARMAN Administration Gabapentin 400 mg 09/18/21 10:00 09/21/21 15:30 Gabapentin 400 Mg Capsule PO 10/18/21 09:59 400 mg TID HARMAN Administration Hydralazine HCl 25 mg 09/18/21 10:00 09/21/21 15:30 Hydralazine Hcl 25 Mg Tablet PO 10/18/21 09:59 25 mg TID HARMAN Administration Sodium Chloride 1,000 mls @ 80 mls/hr 09/17/21 14:45 09/21/21 06:23 Sodium Chloride 0.9% 1000 Ml IV 10/17/21 14:44 80 mls/hr .[id number] HARMAN Administration Insulin Human Lispro 0 unit 09/17/21 14:36 Insulin Lispro 1 Unit SQ 10/17/21 14:35 UD PRN HYPERGLYCEMIA Isosorbide Mononitrate 60 mg 09/18/21 10:00 09/21/21 10:02 Isosorbide Mononitrate 60 Mg Tab PO 10/18/21 09:59 60 mg DAILY HARMAN Administration Levofloxacin 500 mg 09/21/21 10:00 09/21/21 10:01 Levofloxacin 500 Mg Tablet PO 10/21/21 09:59 500 mg DAILY HARMAN Administration Losartan Potassium 50 mg 09/18/21 10:00 09/21/21 10:02 Losartan Potassium 50 Mg Tablet PO 10/18/21 09:59 50 mg BID HARMAN Administration Ondansetron HCl 4 mg 09/17/21 14:36 09/20/21 18:04 Ondansetron Hcl 4 Mg/2 Ml Vial IV 10/17/21 14:35 4 mg Q6H PRN PRN Administration NAUSEA/VOMITING Potassium Chloride 10 meq 09/18/21 11:00 09/21/21 10:03 Potassium Chloride 10 Meq Tablet PO 10/18/21 10:59 10 meq BID HARMAN Administration Simvastatin 10 mg 09/18/21 22:00 09/20/21 22:16 Simvastatin 10 Mg Tablet PO 10/18/21 21:59 10 mg HS HARMAN Administration Discontinued Medications Generic Name Dose Route Start Last Admin Trade Name Freq PRN Reason Stop Dose Admin Aspirin 325 mg 09/17/21 22:00 09/17/21 22:14 Aspirin 325 Mg Tablet.Ec PO 10/17/21 21:59 325 mg HS HARMAN Administration Atorvastatin Calcium 10 mg 09/17/21 22:00 09/17/21 22:14 Atorvastatin Calcium 40 Mg Tablet PO 09/17/21 22:01 10 mg ONCE ONE Administration Bupivacaine HCl Confirm 09/20/21 09:37 Bupivacaine Hcl/Pf 50 Mg/10 Ml Vial Administered 09/20/21 09:38 Dose 100 mg IJ .STK-MED ONE Bupivacaine HCl/Epinephrine Bitart Confirm 09/20/21 16:31 Bupivacaine Hcl/Epinephrine 10 Ml Vial Administered 09/20/21 16:32 Dose 20 ml .ROUTE .STK-MED ONE Carvedilol 3.125 mg 09/17/21 22:00 09/17/21 22:15 Carvedilol 6.25 Mg Tablet PO 09/17/21 22:01 3.125 mg ONCE ONE Administration Carvedilol 3.125 mg 09/18/21 10:00 09/19/21 10:39 Carvedilol 6.25 Mg Tablet PO 10/18/21 09:59 3.125 mg BID HARMAN Administration Cefazolin Sodium Confirm 09/20/21 12:58 Cefazolin Sodium 1 Gm Vial Administered 09/20/21 12:59 Dose 2 g .ROUTE .STK-MED ONE Fentanyl Citrate 50 mcg 09/17/21 12:01 09/17/21 12:04 Fentanyl Citrate 100 Mcg/2 Ml* Vial IV 09/17/21 12:02 50 mcg STAT ONE Administration Fentanyl Citrate Confirm 09/17/21 12:02 Fentanyl Citrate 100 Mcg/2 Ml* Vial Administered 09/17/21 12:03 Dose 100 mcg .ROUTE .STK-MED ONE Fentanyl Citrate 50 mcg 09/17/21 12:23 09/17/21 12:33 Fentanyl Citrate 100 Mcg/2 Ml* Vial IV 09/17/21 12:24 50 mcg STAT ONE Administration Fentanyl Citrate Confirm 09/17/21 12:27 Fentanyl Citrate 100 Mcg/2 Ml* Vial Administered 09/17/21 12:28 Dose 100 mcg .ROUTE .STK-MED ONE Fentanyl Citrate 50 mcg 09/19/21 18:24 09/20/21 05:39 Fentanyl Citrate 100 Mcg/2 Ml* Vial IV 09/24/21 18:23 50 mcg Q6HPRN PRN Administration PAIN Fentanyl Citrate Confirm 09/20/21 17:08 Fentanyl Citrate 100 Mcg/2 Ml* Vial Administered 09/20/21 17:09 Dose 100 mcg .ROUTE .STK-MED ONE Folic Acid 1,000 mg 09/19/21 10:00 09/19/21 10:58 Folic Acid 1 Mg Tablet PO 10/19/21 09:59 Not Given DAILY HARMAN Gabapentin 400 mg 09/17/21 22:00 09/17/21 22:14 Gabapentin 400 Mg Capsule PO 09/17/21 22:01 400 mg ONCE ONE Administration Hydralazine HCl 25 mg 09/17/21 22:00 09/17/21 22:13 Hydralazine Hcl 25 Mg Tablet PO 09/17/21 22:01 25 mg ONCE ONE Administration Hydromorphone HCl 1 mg 09/17/21 12:57 09/17/21 12:58 Hydromorphone 1 Mg/1ml Inj 1 Mg/Ml Syringe IV 09/17/21 12:58 1 mg STAT ONE Administration Hydromorphone HCl Confirm 09/17/21 12:56 Hydromorphone 1 Mg/1ml Inj 1 Mg/Ml Syringe Administered 09/17/21 12:57 Dose 1 mg .ROUTE .STK-MED ONE Hydromorphone HCl 1 mg 09/17/21 14:36 09/19/21 10:46 Hydromorphone 1 Mg/1ml Inj 1 Mg/Ml Syringe IV 09/22/21 14:35 1 mg Q1H PRN PRN Administration PAIN Hydromorphone HCl 30 mg 09/20/21 07:39 09/20/21 07:52 Hydromorphone Hcl 30 Mg/30 Ml [employer] Executive Vial IV 09/25/21 07:38 30 mg UD PRN Administration PAIN Sodium Chloride 1,000 mls @ 999 mls/hr 09/17/21 13:34 09/17/21 14:39 Sodium Chloride 0.9% 1000 Ml IV 09/17/21 14:34 Infused .Q1H1M STA Infusion Sodium Chloride Confirm 09/17/21 13:34 Sodium Chloride 0.9% 1000 Ml Administered 09/17/21 13:35 Dose 1,000 mls @ ud .ROUTE .STK-MED ONE Lactated Ringer's Confirm 09/20/21 09:37 Lactated Ringers Administered 09/20/21 09:38 Dose 1,000 mls @ ud IV .STK-MED ONE Sodium Chloride Confirm 09/20/21 13:29 Sodium Chloride 0.9% 1000 Ml Administered 09/20/21 13:30 Dose 1,000 mls @ ud .ROUTE .STK-MED ONE Lactated Ringer's 1,000 mls @ 50 mls/hr 09/20/21 09:00 Lactated Ringers IV 09/21/21 11:05 .Q20H HARMAN Labetalol HCl 10 mg 09/20/21 10:05 09/20/21 10:30 Labetalol Hcl 20 Mg/4 Ml Disp.Syringe IV 09/20/21 10:06 10 mg ONCE ONE Administration Labetalol HCl Confirm 09/20/21 17:04 Labetalol Hcl 100 Mg/20 Ml Mdv Administered 09/20/21 17:05 Dose 100 mg IV .STK-MED ONE Lidocaine HCl Confirm 09/20/21 09:37 Lidocaine Hcl 1% 20 Ml Mdv 20 Ml Ml Administered 09/20/21 09:38 Dose 20 ml .ROUTE .STK-MED ONE Losartan Potassium 50 mg 09/17/21 22:00 09/17/21 22:14 Losartan Potassium 50 Mg Tablet PO 09/17/21 22:01 50 mg ONCE ONE Administration Metformin HCl 500 mg 09/18/21 10:00 Metformin Hcl Er 500 Mg Tab PO 10/18/21 09:59 BID HARMAN Midazolam HCl Confirm 09/20/21 12:15 Midazolam Hcl 2 Mg/2 Ml Vial Administered 09/20/21 12:16 Dose 2 mg .ROUTE .STK-MED ONE Naloxone HCl 0.2 - 0.4 mg 09/20/21 07:45 Naloxone Hcl 0.4 Mg/Ml Ml IV 10/20/21 07:44 PRN PRN RESP. DEPRESSION / DLOC Non-Formulary Medication 5 mg 09/18/21 09:48 Prednisone [Prednisone] PO DAILY PRN PRN PAIN Non-Formulary Medication 50 mg 09/18/21 10:00 Golimumab IM 10/18/21 09:59 UD HARMAN Ondansetron HCl 4 mg 09/17/21 12:01 09/17/21 12:04 Ondansetron Hcl 4 Mg/2 Ml Vial IV 09/17/21 12:02 4 mg STAT ONE Administration Ondansetron HCl Confirm 09/17/21 12:02 Ondansetron Hcl 4 Mg/2 Ml Vial Administered 09/17/21 12:03 Dose 4 mg .ROUTE .STK-MED ONE Potassium Chloride 10 meq 09/17/21 22:00 09/17/21 22:15 Potassium Chloride 10 Meq Tablet PO 09/17/21 22:01 10 meq ONCE ONE Administration Propofol Confirm 09/20/21 12:15 Propofol 10 Mg/Ml 20ml Vial Administered 09/20/21 12:16 Dose 200 mg IV .STK-MED ONE Rocuronium [place] Confirm 09/20/21 12:15 Rocuronium [place] 100 Mg/10ml Vial Administered 09/20/21 12:16 Dose 50 mg .ROUTE .STK-MED ONE Ropivacaine Confirm 09/20/21 16:31 Ropivacaine Hcl 5 Mg/Ml 30ml Vial Administered 09/20/21 16:32 Dose 150 mg .ROUTE .STK-MED ONE Simvastatin Confirm 09/17/21 22:08 Simvastatin 10 Mg Tablet Administered 09/17/21 22:09 Dose 10 mg .ROUTE .STK-MED ONE Simvastatin 10 mg 09/18/21 08:00 Simvastatin 10 Mg Tablet PO 09/18/21 08:01 ONCE ONE Sugammadex Sodium Confirm 09/20/21 16:30 Sugammadex Sodium 200 Mg/2 Ml Vial Administered 09/20/21 16:31 Dose 200 mg IV .STK-MED ONE Intake & Output (Last 24 hours) 09/19/21 09/20/21 09/21/21 09/22/21 11:59 11:59 11:59 11:59 Intake Total 2117 3780 2240 1233 Output Total 2350 4450 2800 1250 Balance -233 -670 -560 -17 Weight 77 kg 77 kg Laboratory Results (Last 24 hours) 09/21/21 09/21/21 09/21/21 16:00 11:17 06:52 WBC RBC Hgb Hct MCV MCH MCHC RDW Plt Count MPV Gran % Eos # (Auto) Absolute Lymphs (auto) Absolute Monos (auto) Lymphocytes % Monocytes % Eosinophils % Basophils % Absolute Granulocytes Basophils # POC Glucometer 121 H 166 H 133 H NT-Pro-B Natriuret Pep 09/21/21 09/21/21 09/20/21 04:30 04:30 22:24 WBC 8.5 RBC 3.02 L Hgb 9.7 L Hct 30.0 L MCV 99.3 MCH 32.1 H MCHC 32.3 RDW 12.6 Plt Count 125 L MPV 9.8 Gran % 65.8 Eos # (Auto) 0.03 Absolute Lymphs (auto) 1.79 Absolute Monos (auto) 1.05 Lymphocytes % 21.2 L Monocytes % 12.4 H Eosinophils % 0.4 Basophils % 0.2 Absolute Granulocytes 5.57 Basophils # 0.02 POC Glucometer 139 H NT-Pro-B Natriuret Pep 5350 H Orders (Last 24 hours) Category Date Time Status BNP [NT PRO BNP] AM.LAB Lab 09/21/21 04:30 Completed CBC W DIFF AM.LAB Lab 09/21/21 04:30 Completed POCT GLUCOSE Stat Lab 09/20/21 22:24 Completed POCT GLUCOSE Stat Lab 09/21/21 06:52 Completed POCT GLUCOSE Stat Lab 09/21/21 11:17 Completed POCT GLUCOSE Stat Lab 09/21/21 16:00 Completed Alendronate Sodium 70 mg [Fosamax 70 MG] Med 09/25/21 06:00 Active 70 mg PO Q7D@0600 Enoxaparin Sodium [Enoxaparin Sodium] Med 09/21/21 10:00 Active 40 mg SQ DAILY Hydrocodone/APAP 5/325 [[place] 5/325 mg] Med 09/21/21 09:22 Active 1 tab PO Q4H PRN PRN Levofloxacin [Levofloxacin 500 MG Tablet] Med 09/21/21 10:00 Active 500 mg PO DAILY Patient Care Notes (Last 24 hours) 09/21/21 15:00 (created 09/21/21 15:21) Nursing Note by Ruby Mckeon is here to eval patient. Initialized on 09/21/21 15:21 - END OF NOTE 09/21/21 10:25 Nursing Note by Lynne Mendoza pt on dilaudid OIL BURNER pump beginning about 0750 on 09/20/21. pt received 0.4mg loading dose initially. pt was to have surgery pending cardiac clearance at 1200 on 09/20/21 but was decided at 1205 to take pt right then to surgery without being cleared d/t nature of injury. pt OIL BURNER turned off for surgery but I failed to clear the pump before turning it off losing all the data of pt's morning doses. pt then brought back from surgery at 1815 and OIL BURNER was restarted but unable to resume from last stop so the pump was completely started again. No need to clear at end of shift due to pt not using pump in that time. Approximately 2mg of Dilaudid used between 0750 and pt going to surgery at approximately 1205. Pumped cleared this AM (09/21/21) with 1.6mg given since start of my shift. 24mg wasted with Peyton Arauz RN and documented in MAR. Initialized on 09/21/21 10:25 - END OF NOTE 09/21/21 10:01 Case Management Note by Maki Shah S/Neema PATIENT AND AGREEABLE TO REHAB. THEY WOULD LIKE PATIENT TO GO TO [facility]. REFERRAL FAXED AT THIS TIME Initialized on 09/21/21 10:01 - END OF NOTE 09/21/21 09:22 Case Management Note by Maki Shah S/Neema HODGE- HE WOULD LIKE PATIENT TO TO GO TO [facility] FOR REHAB. HE ALSO ORDERED TO DC PATIENT'S OIL BURNER. START PATIENT ON PO NORCO. ORDERS ENTERED AT THIS TIME. PRIMARY RN NOTIFIED Initialized on 09/21/21 09:22 - END OF NOTE 09/20/21 23:28 Nursing Note by Kota White 09/19/2021 0702 Dilaudid 1mg given IV for c/oleft ankle pain 01/25. Initialized on 09/20/21 23:28 - END OF NOTE Code(s): S82.892A - OTH FRACTURE OF LEFT LOWER LEG, INIT FOR CLOS FX (2) Ankle syndesmosis disruption Current Visit: Yes Status: Acute Code(s): S93.439A - SPRAIN OF TIBIOFIBULAR LIGAMENT OF UNSP ANKLE, INIT ENCNTR (3) Trimalleolar fracture of left ankle Current Visit: Yes Status: Acute Code(s): S82.852A - DISPLACED TRIMALLEOLAR FRACTURE OF LEFT LOWER LEG, INIT (4) Diabetes mellitus Current Visit: No Status: Chronic Qualifiers: Diabetes mellitus type: type 2 Diabetes mellitus senior living insulin use: without senior living use Diabetes mellitus complication status: with kidney complications Diabetes mellitus complication detail: with other kidney complication Qualified Code(s): E11.29 - Type 2 diabetes mellitus with other diabetic kidney complication Code(s): E11.9 - TYPE 2 DIABETES MELLITUS WITHOUT COMPLICATIONS (5) HTN (hypertension) Current Visit: No Status: Chronic Qualifiers: Hypertension type: essential hypertension Qualified Code(s): I10 - Essential (primary) hypertension Code(s): I10 - ESSENTIAL (PRIMARY) HYPERTENSION
[2021-09-21] MEDS: Zocor 10MG PO SCH (21:38)
[2021-09-22] MEDS: NORCO 5/325 MG PO PRN ×3 (00:34→08:30)
[2021-09-22] MEDS: Sodium Chloride 0.9% 1000 ML 1,000 ML IV SCH (02:10)
[2021-09-22 07:09] VITALS: O2SAT 97
[2021-09-22] MEDS ORDERED: NORCO 5/325 MG PO PRN ×2 (08:39→08:42)
[2021-09-22] MEDS ORDERED: HYDROCODONE-ACETAMIN 10-325 MG PO PRN (08:42)
[2021-09-22] MEDS: FOLATE 1 MG PO SCH (09:05)
[2021-09-22] MEDS: ECOTRIN 81 MG PO SCH (09:05)
[2021-09-22] MEDS: Cozaar 50 MG PO SCH (09:05)
[2021-09-22] MEDS: Vitamin B-12 500 MCG PO SCH (09:05)
[2021-09-22] MEDS: FISH OIL 1,000 MG CAPSULE PO SCH (09:06)
[2021-09-22] MEDS: Imdur 60MG PO SCH (09:06)
[2021-09-22] MEDS: ENOXAPARIN SODIUM SQ SCH (09:06)
[2021-09-22] MEDS: Coreg 3.125 MG PO SCH (09:06)
[2021-09-22] MEDS: Levofloxacin 500 MG Tablet PO SCH (09:06)
[2021-09-22] MEDS: Klor Con 10 MEQ PO SCH (09:06)
[2021-09-22] MEDS: Lasix 40 MG PO SCH (09:06)
[2021-09-22] MEDS: Apresoline 25 MG TABLET PO SCH (09:06)
[2021-09-22] MEDS: Neurontin 400 MG PO SCH (09:06)
[2021-09-22 11:46] VITALS: BP 175/69; PULSE 68
--- NOTE | 2021-09-22 13:13 | PCM.DS ---
Discharge Summary Date of Admission: 09/17/21 17:11 Admitting Physician: KATHIE WALKER Consults: Consults on Case 09/17/21 14:36 Consult Podiatry ROUTINE 09/17/21 17:25 Notify Anesthesia Provider ROUTINE 09/18/21 08:00 Consult Cardiology ROUTINE Primary Care Provider: KATHIE WALKER Allergies Allergies No Known Drug Allergies Allergy (Verified 09/17/21 12:13) Hospital Summary - Hospital Course Hospital Course: Chief Complaint Diagnosis FRACTURED L ANKLE, SYNCOPAL EPISODE, FALL AT HOME Allergies Allergy/AdvReac Type Severity Reaction Status Date / Time No Known Drug Allergies Allergy Verified 09/17/21 12:13 Vital Signs (Last 24 hours) Temp Pulse Resp BP Pulse Ox 09/22/21 11:46 98.6 F 68 20 175/69 97 09/22/21 07:09 97.7 F 66 18 188/80 97 09/22/21 06:48 96 09/22/21 05:00 98.2 F 64 21 179/74 97 09/22/21 00:19 98.2 F 64 17 165/68 92 L 09/21/21 21:00 98.7 F 67 18 111/56 95 09/21/21 19:03 97 09/21/21 16:05 97.7 F 61 19 135/60 94 L Home Medications Medication Instructions Recorded Confirmed Last Taken Type Alendronate Sodium 70 mg 70 mg PO Q7D@0600 09/17/21 09/17/21 Unknown History [Fosamax 70 MG] Cyanocobalamin (Vitamin B-12) 2,500 mcg PO DAILY 09/17/21 09/17/21 Unknown History [Vitamin B12] Furosemide 40 mg [Lasix 40 40 mg PO DAILY 09/17/21 09/17/21 Unknown History MG] Golimumab [Simponi Aria] 50 mg IM UD 09/17/21 09/17/21 Unknown History HydrALAzine HCL 25 MG TAB 25 mg PO TID 09/17/21 09/17/21 Unknown History [Apresoline 25 MG TABLET] Isosorbide Mononitrate [Isosorbide 60 mg PO DAILY 09/17/21 09/17/21 Unknown History Mononitrate ER] Losartan Potassium 50 mg 50 mg PO BID 09/17/21 09/17/21 Unknown History [Cozaar 50 MG] Metformin HCl Xr 500 mg 500 mg PO BID 09/17/21 09/17/21 Unknown History [Glucophage XR 500 MG] [place]-3 Fatty Acids/Fish Oil [Fish 1 tab PO DAILY 09/17/21 09/17/21 Unknown History Oil 1,000 mg Capsule] Potassium Chloride 10 meq PO BID 09/17/21 09/17/21 Unknown History Aspirin EC 325 mg [Ecotrin 325 325 mg PO DAILY 1 Days #1 09/22/21 Unknown Rx MG] Levofloxacin [Levofloxacin 500 500 mg PO DAILY #8 tablet 09/22/21 Unknown Rx MG Tablet] Current Medications Generic Name Dose Route Start Last Admin Trade Name Freq PRN Reason Stop Dose Admin Hydrocodone Bitart/Acetaminophen 1 tablet 09/22/21 08:42 09/22/21 12:56 Hydrocodone/Acetamin 10-325 Mg Tablet PO 09/27/21 08:41 1 tablet Q4H PRN PRN Administration PAIN Alendronate Sodium 70 mg 09/25/21 06:00 Alendronate Sodium 70 Mg Tablet PO 10/25/21 05:59 Q7D@0600 HARMAN Aspirin 81 mg 09/18/21 10:00 09/22/21 09:05 Aspirin 81 Mg Tablet.Ec PO 10/18/21 09:59 81 mg DAILY HARMAN Administration Carvedilol 3.125 mg 09/19/21 22:00 09/22/21 09:06 Carvedilol 3.125 Mg Tablet PO 10/19/21 21:59 3.125 mg BID HARMAN Administration Cyanocobalamin 2,500 mcg 09/19/21 10:00 09/22/21 09:05 Cyanocobalamin 500 Mcg Tablet PO 10/19/21 09:59 2,500 mcg DAILY HARMAN Administration Enoxaparin Sodium 40 mg 09/21/21 10:00 09/22/21 09:06 Enoxaparin Sodium 40 Mg/0.4 Ml Syringe SQ 10/21/21 09:59 40 mg DAILY HARMAN Administration Fish Oil 1,000 mg 09/18/21 11:00 09/22/21 09:06 [place]-3 Fatty Acids/Fish Oil 1000 Mg Capsule PO 10/18/21 10:59 1,000 mg DAILY HARMAN Administration Folic Acid 1 mg 09/19/21 14:00 09/22/21 09:05 Folic Acid 1 Mg Tablet PO 10/19/21 13:59 1 mg DAILY HARMAN Administration Furosemide 40 mg 09/18/21 10:00 09/22/21 09:06 Furosemide 40 Mg Tablet PO 10/18/21 09:59 40 mg DAILY HARMAN Administration Gabapentin 400 mg 09/18/21 10:00 09/22/21 09:06 Gabapentin 400 Mg Capsule PO 10/18/21 09:59 400 mg TID HARMAN Administration Hydralazine HCl 25 mg 09/18/21 10:00 09/22/21 09:06 Hydralazine Hcl 25 Mg Tablet PO 10/18/21 09:59 25 mg TID HARMAN Administration Sodium Chloride 1,000 mls @ 80 mls/hr 09/17/21 14:45 09/22/21 02:10 Sodium Chloride 0.9% 1000 Ml IV 10/17/21 14:44 80 mls/hr .[id number] HARMAN Administration Insulin Human Lispro 0 unit 09/17/21 14:36 Insulin Lispro 1 Unit SQ 10/17/21 14:35 UD PRN HYPERGLYCEMIA Isosorbide Mononitrate 60 mg 09/18/21 10:00 09/22/21 09:06 Isosorbide Mononitrate 60 Mg Tab PO 10/18/21 09:59 60 mg DAILY HARMAN Administration Levofloxacin 500 mg 09/21/21 10:00 09/22/21 09:06 Levofloxacin 500 Mg Tablet PO 10/21/21 09:59 500 mg DAILY HARMAN Administration Losartan Potassium 50 mg 09/18/21 10:00 09/22/21 09:05 Losartan Potassium 50 Mg Tablet PO 10/18/21 09:59 50 mg BID HARMAN Administration Ondansetron HCl 4 mg 09/17/21 14:36 09/20/21 18:04 Ondansetron Hcl 4 Mg/2 Ml Vial IV 10/17/21 14:35 4 mg Q6H PRN PRN Administration NAUSEA/VOMITING Potassium Chloride 10 meq 09/18/21 11:00 09/22/21 09:06 Potassium Chloride 10 Meq Tablet PO 10/18/21 10:59 10 meq BID HARMAN Administration Simvastatin 10 mg 09/18/21 22:00 09/21/21 21:38 Simvastatin 10 Mg Tablet PO 10/18/21 21:59 10 mg HS HARMAN Administration Discontinued Medications Generic Name Dose Route Start Last Admin Trade Name Anuj PRN Reason Stop Dose Admin Hydrocodone Bitart/Acetaminophen 1 tab 09/21/21 09:22 09/22/21 08:30 Hydrocodone/Apap 5/325 Mg Tablet PO 09/26/21 09:21 1 tab Q4H PRN PRN Administration PAIN Hydrocodone Bitart/Acetaminophen 2 tab 09/22/21 08:39 Hydrocodone/Apap 5/325 Mg Tablet PO 09/26/21 09:21 Q4H PRN PRN PAIN Hydrocodone Bitart/Acetaminophen 1 tab 09/22/21 08:42 09/22/21 09:04 Hydrocodone/Apap 5/325 Mg Tablet PO 09/22/21 10:00 1 tab 1XONLY PRN Administration PAIN Aspirin 325 mg 09/17/21 22:00 09/17/21 22:14 Aspirin 325 Mg Tablet.Ec PO 10/17/21 21:59 325 mg HS HARMAN Administration Atorvastatin Calcium 10 mg 09/17/21 22:00 09/17/21 22:14 Atorvastatin Calcium 40 Mg Tablet PO 09/17/21 22:01 10 mg ONCE ONE Administration Bupivacaine HCl Confirm 09/20/21 09:37 Bupivacaine Hcl/Pf 50 Mg/10 Ml Vial Administered 09/20/21 09:38 Dose 100 mg IJ .STK-MED ONE Bupivacaine HCl/Epinephrine Bitart Confirm 09/20/21 16:31 Bupivacaine Hcl/Epinephrine 10 Ml Vial Administered 09/20/21 16:32 Dose 20 ml .ROUTE .STK-MED ONE Carvedilol 3.125 mg 09/17/21 22:00 09/17/21 22:15 Carvedilol 6.25 Mg Tablet PO 09/17/21 22:01 3.125 mg ONCE ONE Administration Carvedilol 3.125 mg 09/18/21 10:00 09/19/21 10:39 Carvedilol 6.25 Mg Tablet PO 10/18/21 09:59 3.125 mg BID HARMAN Administration Cefazolin Sodium Confirm 09/20/21 12:58 Cefazolin Sodium 1 Gm Vial Administered 09/20/21 12:59 Dose 2 g .ROUTE .STK-MED ONE Fentanyl Citrate 50 mcg 09/17/21 12:01 04/02/22 12:04 Fentanyl Citrate 100 Mcg/2 Ml* Vial IV 09/17/21 12:02 50 mcg STAT ONE Administration Fentanyl Citrate Confirm 09/17/21 12:02 Fentanyl Citrate 100 Mcg/2 Ml* Vial Administered 09/17/21 12:03 Dose 100 mcg .ROUTE .STK-MED ONE Fentanyl Citrate 50 mcg 09/17/21 12:23 09/17/21 12:33 Fentanyl Citrate 100 Mcg/2 Ml* Vial IV 09/17/21 12:24 50 mcg STAT ONE Administration Fentanyl Citrate Confirm 09/17/21 12:27 Fentanyl Citrate 100 Mcg/2 Ml* Vial Administered 09/17/21 12:28 Dose 100 mcg .ROUTE .STK-MED ONE Fentanyl Citrate 50 mcg 09/19/21 18:24 09/20/21 05:39 Fentanyl Citrate 100 Mcg/2 Ml* Vial IV 09/24/21 18:23 50 mcg Q6HPRN PRN Administration PAIN Fentanyl Citrate Confirm 09/20/21 17:08 Fentanyl Citrate 100 Mcg/2 Ml* Vial Administered 09/20/21 17:09 Dose 100 mcg .ROUTE .STK-MED ONE Folic Acid 1,000 mg 09/19/21 10:00 09/19/21 10:58 Folic Acid 1 Mg Tablet PO 10/19/21 09:59 Not Given DAILY HARMAN Gabapentin 400 mg 09/17/21 22:00 09/17/21 22:14 Gabapentin 400 Mg Capsule PO 09/17/21 22:01 400 mg ONCE ONE Administration Hydralazine HCl 25 mg 09/17/21 22:00 09/17/21 22:13 Hydralazine Hcl 25 Mg Tablet PO 09/17/21 22:01 25 mg ONCE ONE Administration Hydromorphone HCl 1 mg 09/17/21 12:57 09/17/21 12:58 Hydromorphone 1 Mg/1ml Inj 1 Mg/Ml Syringe IV 09/17/21 12:58 1 mg STAT ONE Administration Hydromorphone HCl Confirm 09/17/21 12:56 Hydromorphone 1 Mg/1ml Inj 1 Mg/Ml Syringe Administered 09/17/21 12:57 Dose 1 mg .ROUTE .STK-MED ONE Hydromorphone HCl 1 mg 09/17/21 14:36 09/19/21 10:46 Hydromorphone 1 Mg/1ml Inj 1 Mg/Ml Syringe IV 09/22/21 14:35 1 mg Q1H PRN PRN Administration PAIN Hydromorphone HCl 30 mg 09/20/21 07:39 09/20/21 07:52 Hydromorphone Hcl 30 Mg/30 Ml Organ Assembler Vial IV 09/25/21 07:38 30 mg UD PRN Administration PAIN Sodium Chloride 1,000 mls @ 999 mls/hr 09/17/21 13:34 09/17/21 14:39 Sodium Chloride 0.9% 1000 Ml IV 09/17/21 14:34 Infused .Q1H1M STA Infusion Sodium Chloride Confirm 09/17/21 13:34 Sodium Chloride 0.9% 1000 Ml Administered 09/17/21 13:35 Dose 1,000 mls @ ud .ROUTE .STK-MED ONE Lactated Ringer's Confirm 09/20/21 09:37 Lactated Ringers Administered 09/20/21 09:38 Dose 1,000 mls @ ud IV .STK-MED ONE Sodium Chloride Confirm 09/20/21 13:29 Sodium Chloride 0.9% 1000 Ml Administered 09/20/21 13:30 Dose 1,000 mls @ ud .ROUTE .STK-MED ONE Lactated Ringer's 1,000 mls @ 50 mls/hr 09/20/21 09:00 Lactated Ringers IV 09/21/21 11:05 .Q20H HARMAN Labetalol HCl 10 mg 09/20/21 10:05 09/20/21 10:30 Labetalol Hcl 20 Mg/4 Ml Disp.Syringe IV 09/20/21 10:06 10 mg ONCE ONE Administration Labetalol HCl Confirm 09/20/21 17:04 Labetalol Hcl 100 Mg/20 Ml Mdv Administered 09/20/21 17:05 Dose 100 mg IV .STK-MED ONE Lidocaine HCl Confirm 09/20/21 09:37 Lidocaine Hcl 1% 20 Ml Mdv 20 Ml Ml Administered 09/20/21 09:38 Dose 20 ml .ROUTE .STK-MED ONE Losartan Potassium 50 mg 09/17/21 22:00 09/17/21 22:14 Losartan Potassium 50 Mg Tablet PO 09/17/21 22:01 50 mg ONCE ONE Administration Metformin HCl 500 mg 09/18/21 10:00 Metformin Hcl Er 500 Mg Tab PO 10/18/21 09:59 BID HARMAN Midazolam HCl Confirm 09/20/21 12:15 Midazolam Hcl 2 Mg/2 Ml Vial Administered 09/20/21 12:16 Dose 2 mg .ROUTE .STK-MED ONE Naloxone HCl 0.2 - 0.4 mg 09/20/21 07:45 Naloxone Hcl 0.4 Mg/Ml Ml IV 10/20/21 07:44 PRN PRN RESP. DEPRESSION / DLOC Non-Formulary Medication 5 mg 09/18/21 09:48 Prednisone [Prednisone] PO DAILY PRN PRN PAIN Non-Formulary Medication 50 mg 09/18/21 10:00 Golimumab IM 10/18/21 09:59 UD HARMAN Ondansetron HCl 4 mg 09/17/21 12:01 09/17/21 12:04 Ondansetron Hcl 4 Mg/2 Ml Vial IV 09/17/21 12:02 4 mg STAT ONE Administration Ondansetron HCl Confirm 09/17/21 12:02 Ondansetron Hcl 4 Mg/2 Ml Vial Administered 09/17/21 12:03 Dose 4 mg .ROUTE .STK-MED ONE Potassium Chloride 10 meq 09/17/21 22:00 09/17/21 22:15 Potassium Chloride 10 Meq Tablet PO 09/17/21 22:01 10 meq ONCE ONE Administration Propofol Confirm 09/20/21 12:15 Propofol 10 Mg/Ml 20ml Vial Administered 09/20/21 12:16 Dose 200 mg IV .STK-MED ONE Rocuronium [place] Confirm 09/20/21 12:15 Rocuronium [place] 100 Mg/10ml Vial Administered 09/20/21 12:16 Dose 50 mg .ROUTE .STK-MED ONE Ropivacaine Confirm 09/20/21 16:31 Ropivacaine Hcl 5 Mg/Ml 30ml Vial Administered 09/20/21 16:32 Dose 150 mg .ROUTE .STK-MED ONE Simvastatin Confirm 09/17/21 22:08 Simvastatin 10 Mg Tablet Administered 09/17/21 22:09 Dose 10 mg .ROUTE .STK-MED ONE Simvastatin 10 mg 09/18/21 08:00 Simvastatin 10 Mg Tablet PO 09/18/21 08:01 ONCE ONE Sugammadex Sodium Confirm 09/20/21 16:30 Sugammadex Sodium 200 Mg/2 Ml Vial Administered 09/20/21 16:31 Dose 200 mg IV .STK-MED ONE Intake & Output (Last 24 hours) 09/20/21 09/21/21 09/22/21 09/23/21 11:59 11:59 11:59 11:59 Intake Total 3780 2240 1953 Output Total 4450 2800 2750 Balance -670 -560 -797 Weight 77 kg 77 kg Laboratory Results (Last 24 hours) 09/22/21 09/22/21 09/21/21 11:28 07:03 21:40 POC Glucometer 125 H 108 H 127 H 09/21/21 16:00 POC Glucometer 121 H Orders (Last 24 hours) Category Date Time Status Nursing [Miscellaneous Nursing Order] ROUTINE Care 09/22/21 09:57 Active POCT GLUCOSE Stat Lab 09/21/21 16:00 Completed POCT GLUCOSE Stat Lab 09/21/21 21:40 Completed POCT GLUCOSE Stat Lab 09/22/21 07:03 Completed POCT GLUCOSE Stat Lab 09/22/21 11:28 Completed Alendronate Sodium 70 mg [Fosamax 70 MG] Med 09/25/21 06:00 Active 70 mg PO Q7D@0600 Hydrocodone/APAP 5/325 [[place] 5/325 mg] Med 09/22/21 08:42 Discontinued 1 tab PO 1XONLY PRN Hydrocodone/APAP 5/325 [[place] 5/325 mg] Med 09/22/21 08:39 Discontinued 2 tab PO Q4H PRN PRN Hydrocodone/Acetaminophen [Hydrocodone-Acetamin 10-325 Med 09/22/21 08:42 Active mg] 1 tablet PO Q4H PRN PRN Patient Care Notes (Last 24 hours) 09/22/21 10:20 Case Management Note by Maki Shah HAS ACCEPTED PATIENT- PATIENT AND FAMILY NOTIFIED Initialized on 09/22/21 10:20 - END OF NOTE 09/22/21 08:42 Case Management Note by Maki Shah HAS ACCEPTED PATIENT- THEY ARE JUST WAITING ON HER INSURANCE INFORMATION TO COME BACK. THEY EXPECT THAT BY NOON TODAY Initialized on 09/22/21 08:42 - END OF NOTE 09/22/21 08:40 Nursing Note by Larisa Callaway pt reports norco helps her pain but "doesn't last very long". discussed with dr. walker. new order for norco 10/325 po obtained. pt educated on med change Initialized on 09/22/21 08:40 - END OF NOTE 09/22/21 07:13 Respiratory Note by Juana Domingo RESTING ROOM AIR SAT 80%. PLACED ON 2L NC SAT UP TO 93% Initialized on 09/22/21 07:13 - END OF NOTE 09/21/21 15:00 (created 09/21/21 15:21) Nursing Note by Ruby Mckeon MMM is here to eval patient. Initialized on 09/21/21 15:21 - END OF NOTE - Vitals & Intake/Output Vital Signs: Vital Signs Temperature 98.6 F 09/22/21 11:46 Pulse Rate 68 09/22/21 11:46 Respiratory Rate 20 09/22/21 11:46 Blood Pressure 175/69 09/22/21 11:46 O2 Sat by Pulse Oximetry 97 09/22/21 11:46 Intake & Output: Intake & Output 09/20/21 09/21/21 09/22/21 09/23/21 11:59 11:59 11:59 11:59 Intake Total 3780 2240 1953 Output Total 4450 2800 2750 Balance -735 -953 -595 Weight 77 kg 77 kg - Lab Result Diagrams: 09/21/21 04:30 09/20/21 04:40 Lab Results-Last 24 Hrs: Lab Results-Last 24 Hours 09/21/21 09/21/21 09/22/21 Range/Units 16:00 21:40 07:03 POC Glucometer 121 H 127 H 108 H (74 to 106) mg/dL 09/22/21 Range/Units 11:28 POC Glucometer 125 H (74 to 106) mg/dL Micro Results-Entire Visit: Microbiology 09/17/21 15:16 Urine Culture - Final Catherized NO GROWTH Accuchecks Date 09/22/21 Date 09/22/21 Date 09/21/21 Date 09/21/21 Time 11:41 Time 07:09 Time 10:00 Time 16:05 - Procedures and Test Procedures and Tests throughout Hospitalization: Therapy Orders & Screens 09/17/21 17:25 PT Eval & Treat (MD Order) ONCE Reason for Eval:: Post surgical weight bearing. Strengthen hamstrings and quads. Assess for transfers. Non weigh tbearing to the left lower extremity. Diagnosis: FRACTURED L ANKLE 09/18/21 05:35 Oxygen NASAL CANNULA 2 lpm Comment: Diagnosis: FRACTURED L ANKLE 09/18/21 07:00 Incentive Spirometry TID Comment: Diagnosis: FRACTURED L ANKLE 09/20/21 17:30 PT Eval & Treat (MD Order) ROUTINE Reason for Eval:: POST-OP CARE Diagnosis: FRACTURED L ANKLE, SYNCOPAL EPISODE, FALL AT HOME Incentive Spirometry Q2HWA Comment: Diagnosis: FRACTURED L ANKLE, SYNCOPAL EPISODE, FALL AT HOME 09/20/21 17:31 EKG ROUTINE Comment: Diagnosis: FRACTURED L ANKLE, SYNCOPAL EPISODE, FALL AT HOME Discharge Exam General Appearance: no apparent distress, alert Neurologic Exam: alert, oriented x 3, cooperative, normal mood/affect, nml cerebellar function, sensation nml, No motor deficits Eye Exam: PERRL, EOMI, eyes nml inspection Ears, Nose, Throat Exam: normal ENT inspection, pharynx normal, moist mucous membranes Neck Exam: normal inspection, non-tender, supple, full range of motion Respiratory Exam: normal breath sounds, lungs clear, No respiratory distress Cardiovascular Exam: regular rate/rhythm, normal heart sounds Gastrointestinal/Abdomen Exam: soft, No tenderness, No mass Pelvic Exam: deferred Rectal Exam: deferred Back Exam: normal inspection, normal range of motion, No CVA tenderness, No vertebral tenderness Extremity Exam: normal inspection, normal range of motion Skin Exam: normal color, warm, dry Wound Assessment: Skin/Wound Assessment Wound/Incision Assessment Start: 09/20/21 23:12 Text: Status: Active Freq: Q6H Protocol: Document 09/22/21 08:30 MJ (Rec: 09/22/21 08:53 MJ [id number]) Wound/Incision Assessment Left Ankle Wound Assessment Shift Assessment Wound Type Incision Dressing Status Dry & Intact Drainage Amount None Comment patient able to wiggle toes and can feel touch. cap refill <3. toes are pink and warm, leg elevated on pillow Final Diagnosis/Problem List - Final Discharge Diagnosis/Problem (1) Ankle fracture, left Current Visit: Yes Status: Acute Code(s): S82.892A - OTH FRACTURE OF LEFT LOWER LEG, INIT FOR CLOS FX (2) Ankle syndesmosis disruption Current Visit: Yes Status: Acute Code(s): S93.439A - SPRAIN OF TIBIOFIBULAR LIGAMENT OF UNSP ANKLE, INIT ENCNTR (3) Trimalleolar fracture of left ankle Current Visit: Yes Status: Acute Code(s): S82.852A - DISPLACED TRIMALLEOLAR FRACTURE OF LEFT LOWER LEG, INIT (4) Diabetes mellitus Current Visit: No Status: Chronic Code(s): E11.9 - TYPE 2 DIABETES MELLITUS WITHOUT COMPLICATIONS (5) HTN (hypertension) Current Visit: No Status: Chronic Code(s): I10 - ESSENTIAL (PRIMARY) HYPERTENSION - Discharge Discharge Date: 09/22/21 Disposition: [place] TO [facility] Condition: Stable Prescriptions: New Aspirin EC 325 mg [Ecotrin 325 MG] 325 mg PO DAILY 1 Days #1 Levofloxacin [Levofloxacin 500 MG Tablet] 500 mg PO DAILY #8 tablet Hydrocodone/Acetaminophen [Hydrocodone-Acetamin 10-325 mg] 1 tablet PO Q4H PRN PRN #60 tablet MDD 4 PRN Reason: Moderate Pain Continue Folic Acid 800 mcg PO DAILY Atorvastatin Calcium [Lipitor 20MG Tablet] 10 mg PO HS Carvedilol 6.25 mg [Coreg 6.25 MG] 3.125 mg PO BID Aspirin EC 81 mg [Ecotrin 81 mg] 81 mg PO DAILY Gabapentin [Neurontin] 400 mg PO TID predniSONE [Prednisone] 5 mg PO DAILY PRN PRN PRN Reason: Pain Potassium Chloride 10 meq PO BID HydrALAzine HCL 25 MG TAB [Apresoline 25 MG TABLET] 25 mg PO TID Metformin HCl Xr 500 mg [Glucophage XR 500 MG] 500 mg PO BID Furosemide 40 mg [Lasix 40 MG] 40 mg PO DAILY Alendronate Sodium 70 mg [Fosamax 70 MG] 70 mg PO Q7D@0600 Isosorbide Mononitrate [Isosorbide Mononitrate ER] 60 mg PO DAILY Losartan Potassium 50 mg [Cozaar 50 MG] 50 mg PO BID Golimumab [Simponi Aria] 50 mg IM UD Cyanocobalamin (Vitamin B-12) [Vitamin B12] 2,500 mcg PO DAILY [place]-3 Fatty Acids/Fish Oil [Fish Oil 1,000 mg Capsule] 1 tab PO DAILY Additional Instructions: LONG-TERM ORDERS: ADMIT TO LONG-TERM FACILITY CONSISTENT CARBOHYDRATE DIET ACHS ACCU CHECKS OXYGEN AT 2L/NC SEE ATTACHED MED LIST DR. CHIANG ORDERS FOR [facility]: CONTINUE ASPIRIN ORDERED (UNTIL WEIGHT BEARING) CONTINUE LEVAQUIN ORDERED FOR A COMPLETE COURSE OF 10 DAYS (STARTED AT [facility] 09/21/21) NON WEIGHT BEARING ON LEFT LOWER EXTREMITY ANTIEMBOLISM STOCKING AND SCD TO NON OP EXTREMITY KEEP DRESSING CLEAN, DRY AND INTACT INCENTIVE SPIROMETRY DR. DIANA WILL CALL PHYSICAL THERAPY ORDERS TO M DR. DIANA WILL SEE PATIENT ON WEDNESDAY 09/27 AT [facility] Follow up with: ADALGISA CORTEZ DPM [ACTIVE STAFF] - 09/27/21 10:00 am KATHIE WALKER MD [Primary Care Provider] - Forms: Ambulance Transport Record, Transfer Record Fpc
[2021-09-25] MEDS ORDERED: Fosamax 70 MG PO SCH (06:00)
== END 2021-09-22 14:06 | DRG 493 ==
LOC: ED 11:57 → MED SURG 15:35 → OBSVTOIN 17:11
PROVIDERS: ADMIT General Practice; ATTEND General Practice
PROC: 2W3RX1Z Immobilization of Left Lower Leg using Splint (ICD-10-PCS; 2021-09-17)
PROC: 0QSH04Z Reposition Left Tibia with Internal Fixation Device, Open Approach (ICD-10-PCS; principal; 2021-09-20)
PROC: 0SSG0ZZ Reposition Left Ankle Joint, Open Approach (ICD-10-PCS; 2021-09-20)
DX: S82.852A Displaced trimalleolar fracture of left lower leg, initial encounter for closed fracture (principal); N12 Tubulo-interstitial nephritis, not specified as acute or chronic; J44.1 Chronic obstructive pulmonary disease with (acute) exacerbation; L03.113 Cellulitis of right upper limb; S93.432A Sprain of tibiofibular ligament of left ankle, initial encounter; E11.9 Type 2 diabetes mellitus without complications; R55 Syncope and collapse; W19.XXXA Unspecified fall, initial encounter; M25.572 Pain in left ankle and joints of left foot; I10 Essential (primary) hypertension; B96.20 Unspecified Escherichia coli [E. coli] as the cause of diseases classified elsewhere; Z91.81 History of falling; K52.9 Noninfective gastroenteritis and colitis, unspecified; R50.9 Fever, unspecified; Z79.899 Other long term (current) drug therapy
CPT/HCPCS: 0241U; 27822; 27829; 29515; 36000; 36415; 51702; 64450; 70450; 71045; 73600; 73610; 73700; 76000; 76937; 76942; 80053; 80307; 81015; 82607; 82947; 83036; 83735; 83880; 84443; 84484; 85025; 85027; 85610; 85730; 87086; 93005; 93268; 93306; 93880; 93925; 94762; 96374; 96375; 96376; 99024; 99100; 99223; 99233; 99285; J0690; J1170; J1650; J2250; J2405; J2704; J2795; J3010; A9270-GY; C1713

== ENCOUNTER 2022-03-08 18:05 | Emergency (ER) | payer MEDICARE ==
[2022-03-08 18:17] VITALS: O2SAT 97
[2022-03-08 19:16] VITALS: BP 166/86; PULSE 57
--- NOTE | 2022-03-08 19:26 | ERPHSYRPT ---
- History of Present Illness Source: patient Exam Limitations: no limitations Patient Subjective Stated Complaint: PT HERE FOR LEFT FOOT PAIN TODAY, NO INJURY Triage Nursing Assessment: PT ARRIVED PER WC, REPS EASY, SKIN W/D/P. ALERT, FACE MASK IN PLACE, NO SWELLING OR BRUISING TO LEFT FOOT, STRONG PEDAL PULSE Physician History: 81 yo wf w L lateral foot pain starting this afternoon. Pt denies injury but can not bear weight. Pain is mild but severe w weight bearing. She has a h/o ORIF of her L ankle. Pt denies other injuries at this time. Method of Injury: unknown Occurred: this afternoon Quality: constant Severity of Pain-Max: severe Severity of Pain-Current: mild Lower Extremities Pain: foot: left Modifying Factors: Improves With: movement Associated Symptoms: unable to bear weight Allergies/Adverse Reactions: No Known Drug Allergies Allergy (Verified 03/08/22 18:17) Home Medications: Atorvastatin Calcium [Lipitor 20MG Tablet] 10 mg PO HS 04/11/17 [History] Carvedilol [Coreg ] 3.125 mg PO BID 04/11/17 [History] Folic Acid 800 mcg PO DAILY 04/11/17 [History] Gabapentin [Neurontin] 400 mg PO TID 04/11/17 [History] Alendronate Sodium 70 mg [Fosamax 70 MG] 70 mg PO Q7D@0600 09/17/21 [History] Furosemide 40 mg [Lasix 40 MG] 40 mg PO DAILY 09/17/21 [History] Golimumab [Simponi Aria] 50 mg IM UD 09/17/21 [History] Isosorbide Mononitrate [Isosorbide Mononitrate ER] 30 mg PO DAILY 09/17/21 [History] Losartan Potassium 50 mg [Cozaar 50 MG] 50 mg PO DAILY 09/17/21 [History] Metformin HCl Xr 500 mg [Glucophage XR 500 MG] 500 mg PO DAILY 09/17/21 [History] Potassium Chloride 10 meq PO BID 09/17/21 [History] Hx Tetanus, Diphtheria Vaccination/Date Given: Yes Hx Influenza Vaccination/Date Given: Yes Hx Pneumococcal Vaccination/Date Given: Yes Immunizations Up to Date: Yes Travel Risk - International Travel Have you traveled outside of the country in past 3 weeks: No - Coronavirus Screening Are you exhibiting any of the following symptoms?: No - Vaccine Status Have you recieved a Covid-19 vaccination: Yes Contact Agent: Pf[employer] - Vaccination Dates Date of 2cond Vaccination (if applicable): 08/10/2020 - Review of Systems Constitutional: No Symptoms Eyes: No Symptoms Ears, Nose, & Throat: No Symptoms Respiratory: No Symptoms Cardiac: No Symptoms Abdominal/Gastrointestinal: No Symptoms Genitourinary Symptoms: No Symptoms Skin: No Symptoms Neurological: No Symptoms Psychological: No Symptoms Endocrine: No Symptoms Hematologic/Lymphatic: No Symptoms Immunological/Allergic: No Symptoms - Past Medical History Pertinent Past Medical History: Yes Neurological History: No Pertinent History ENT History: Cataracts Cardiac History: Hypertension Respiratory History: No Pertinent History Endocrine Medical History: Diabetes Type II Musculoskeletal History: Osteoarthritis GI Medical History: No Pertinent History History: Other Psycho-Social History: No Pertinent History Female Reproductive Disorders: No Pertinent History Other Medical History: LUPUS, SJOGREN'S, B LE EDEMA. TAIL BONE FRACTURE. - Past Surgical History Past Surgical History: Yes Neuro Surgical History: No Pertinent History Cardiac: Cardiac Catheterization Respiratory: No Pertinent History Gastrointestinal: Cholecystectomy Genitourinary: Other Musculoskeletal: No Pertinent History Female Surgical History: Hysterectomy Other Surgical History: bladder suspension - Social History Smoking Status: Never smoker Exposure to second hand smoke: No Drug Use: none Patient Lives Alone: No Significant Family History: no pertinent family hx - Nursing Vital Signs Nursing Vital Signs: Initial Vital Signs Temperature 99.4 F 03/08/22 18:16 Pulse Rate 61 03/08/22 18:16 Respiratory Rate 18 03/08/22 18:16 Blood Pressure 201/94 03/08/22 18:16 O2 Sat by Pulse Oximetry 97 03/08/22 18:16 Pain Scale Pain Intensity 5 Hypertensive - Physical Exam General Appearance: no apparent distress Eyes, Ears, Nose, Throat Exam: normal ENT inspection, TMs normal, pharynx normal, moist mucous membranes Neck Exam: normal inspection, non-tender, supple, full range of motion, No Brudzinski, No Kernig's, No meningismus Cardiovascular/Respiratory Exam: normal breath sounds, regular rate/rhythm, heart sounds normal Gastrointestinal/Abdominal Exam: non-tender, soft, No no organomegaly Back Exam: normal inspection, normal range of motion, No CVA tenderness, No vertebral tenderness Hips Exam: bilateral: non-tender, normal inspection, normal range of motion, no evidence of injury Legs Exam: bilateral leg: non-tender, normal inspection, normal range of motion, no evidence of injury Knees Exam: bilateral knee: non-tender, normal inspection, normal range of motion, no evidence of injury Ankle Exam: bilateral ankle: non-tender, normal inspection, normal range of motion, no evidence of injury Foot Exam: left foot: soft tissue tenderness (TTP L lateral foot/No edema/No deformity/Good pedal pulse, distal sensation, and capillary return) Neuro/Tendon Exam: normal sensation, normal motor functions, normal tendon functions, responds to pain, no evidence tendon injury, No motor deficit, No sensory deficit Mental Status Exam: alert, oriented x 3, cooperative Skin Exam: normal color, warm, dry, No rash SpO2 Interpretation: normal SpO2: 97 O2 Delivery: Room Air - Course Nursing assessment & vital signs reviewed: Yes - Radiology Exams Foot X-ray Interpretation: Interpreted by me (L 5th metatarsal base fx) Ordered Tests: Active Orders 24 hr Category Date Time Status Crutches STAT Care 03/08/22 19:20 Active FOOT (MINIMUM 3 VIEWS) Stat Exams 03/08/22 18:00 Taken - Progress Progress Note: 03/08/22 19:25 Pt refused all pain meds Does not want walking boot because she wants to use her own at home Crutches dispensed Pt established w Dr. Mullen and will f/u with him 03/08/22 19:28 03/08/22 19:47 BP decreased before discharge Counseled pt/family regarding: diagnosis, need for follow-up, rad results - Departure Departure Disposition: Home Clinical Impression: Metatarsal fracture Condition: Stable Critical Care Time: No Referrals: KATHIE HODGE MD [Primary Care Provider] - Follow up/PCP as directed ADALGISA CORTEZ DPM [ACTIVE STAFF] - Follow up/PCP as directed Instructions: Foot Fracture (DC) Additional Instructions: No weight bearing/Use crutches Motrin-tylenol for pain Follow up with Dr. Mullen Ice to foot for 12-24 hours Return to ER as needed
--- NOTE | 2022-03-09 08:40 | XRAY ---
Indication: Pain. No known injury. Comparison: None 3 nonweightbearing views left foot demonstrates partially united old fractures distal 5th metatarsal shaft and also base. Elsewhere old trimalleolar fractures with intact hardware, partial united old distal fibula shaft fracture, osteopenia, tiny heel spurs, and mild scattered vascular calcifications. No other bony, articular, or soft tissue abnormalities.
== END 2022-03-08 19:48 | disposition home or self-care (01) ==
LOC: ED 18:05
DX: S92.352A Displaced fracture of fifth metatarsal bone, left foot, initial encounter for closed fracture (principal); M79.672 Pain in left foot; I10 Essential (primary) hypertension; E11.9 Type 2 diabetes mellitus without complications; Z79.84 Long term (current) use of oral hypoglycemic drugs; Z79.899 Other long term (current) drug therapy
CPT/HCPCS: 73630; 99282

== ENCOUNTER 2022-04-26 07:50 | Day surgery (SDC) | payer MEDICARE ==
[2022-04-26] MEDS ORDERED: Depo-Medrol 40 MG/ML IM ONE (07:51)
[2022-04-26] MEDS ORDERED: BUPIVACAINE 0.5% VIAL IJ ONE (07:51)
[2022-04-26] MEDS ORDERED: DIPRIVAN 200 MG/20 ML IV ONE (09:18)
[2022-04-26] MEDS ORDERED: Xylocaine-Mpf 2% 5 Ml Vial ONE (09:18)
[2022-04-26] MEDS ORDERED: Lactated Ringers 1,000 ML IV ONE (10:02)
--- NOTE | 2022-04-26 11:39 | XRAY ---
Indication: Bilateral SI joint injection. Intraoperative fluoroscopy provided for 21 seconds. 4 digital spot image submitted for interpretation demonstrates posterior needle tip projecting over the left and right SI joint. Correlate with intraoperative findings/report.
--- NOTE | 2022-04-26 12:32 | XRAY ---
21 seconds of fluoroscopy was used in surgery for a bilateral sacroiliac joint injection.
== END 2022-04-26 09:24 | disposition home or self-care (01) ==
LOC: SDC-PAIN 07:50
PROVIDERS: ATTEND Psychiatry & Neurology Pain Medicine
DX: M46.1 Sacroiliitis, not elsewhere classified (principal); Z79.899 Other long term (current) drug therapy
CPT/HCPCS: 27096; 72202; 77002; 82947; G0260; 99100; J1030; J2704

== ENCOUNTER 2022-07-12 09:01 | Day surgery (SDC) | payer MEDICARE ==
[2022-07-12] MEDS ORDERED: BUPIVACAINE 0.5% VIAL IJ ONE (09:02)
[2022-07-12] MEDS ORDERED: LIDOCAINE HCL 1% 50 MG/5 ML VL PF IJ ONE (09:02)
[2022-07-12] MEDS ORDERED: Depo-Medrol 40 MG/ML IM ONE (09:02)
--- NOTE | 2022-07-12 11:18 | XRAY ---
Indication: Right L4-S1 RFA. Intraoperative fluoroscopy provided for 17 seconds. 3 digital spot image submitted for interpretation demonstrates posterior needle tips projecting over the expected right L4-S1 nerve root. Correlate with intraoperative findings/report.
--- NOTE | 2022-07-12 11:22 | XRAY ---
17 seconds fluoroscopy time in surgery for right L4-S1 RFA.
[2022-07-12] MEDS ORDERED: Lactated Ringers 1,000 ML IV ONE (13:27)
== END 2022-07-12 11:15 | disposition home or self-care (01) ==
LOC: SDC-PAIN 09:01
PROVIDERS: ATTEND Psychiatry & Neurology Pain Medicine
DX: M47.816 Spondylosis without myelopathy or radiculopathy, lumbar region (principal); E11.9 Type 2 diabetes mellitus without complications; Z79.899 Other long term (current) drug therapy
CPT/HCPCS: 64635; 64636; 72100; 77002; 82947; 99100; J1030; J2001

== ENCOUNTER 2022-07-19 08:32 | Day surgery (SDC) | payer MEDICARE ==
[2022-07-19] MEDS ORDERED: BUPIVACAINE 0.5% VIAL IJ ONE (08:33)
[2022-07-19] MEDS ORDERED: Depo-Medrol 40 MG/ML IM ONE (08:33)
[2022-07-19] MEDS ORDERED: LIDOCAINE HCL 1% 50 MG/5 ML VL PF IJ ONE (08:33)
[2022-07-19] MEDS ORDERED: Xylocaine-Mpf 2% 5 Ml Vial ONE (10:18)
[2022-07-19] MEDS ORDERED: DIPRIVAN 200 MG/20 ML IV ONE (10:18)
--- NOTE | 2022-07-19 11:27 | XRAY ---
Indication: Left L4-S1 RFA. Intraoperative fluoroscopy provided for 15 seconds. 3 digital spot images submitted for interpretation demonstrates posterior needle tips projecting over the expected left L4-S1 nerve roots. Correlate with intraoperative findings/report.
--- NOTE | 2022-07-19 11:29 | XRAY ---
15 seconds of fluoroscopy was used in surgery for a left L4-S1 RFA.
[2022-07-19] MEDS ORDERED: Lactated Ringers 1,000 ML IV ONE (14:00)
== END 2022-07-19 10:50 | disposition left against medical advice (07) ==
LOC: SDC-PAIN 08:32
PROVIDERS: ATTEND Psychiatry & Neurology Pain Medicine
DX: M47.816 Spondylosis without myelopathy or radiculopathy, lumbar region (principal); E11.9 Type 2 diabetes mellitus without complications; Z79.899 Other long term (current) drug therapy
CPT/HCPCS: 64635; 64636; 72100; 77002; 82947; 99100; J1030; J2001; J2704

== ENCOUNTER 2022-12-06 11:49 | Inpatient (IN) | payer MEDICARE ==
[~2022-12-06 11:49] MED LIST changes: +APRESOLINE 20 MG/ML INJ ONE; -Ambien 5 MG Tablet ONE; -Coreg 6.25 MG ONE; -NEURONTIN 300 MG ONE; -Sodium Chloride 0.9% 1000 ML 1,000 ML ONE; -ZOCOR 20MG ONE
[2022-12-06] MEDS ORDERED: BABY ASPIRIN 81 MG CHEW PO ONE (12:14)
[2022-12-06] MEDS ORDERED: APRESOLINE 20 MG/ML INJ IV ONE (12:15)
[2022-12-06] MEDS ORDERED: BABY ASPIRIN 81 MG CHEW ONE (12:27)
[2022-12-06] MEDS ORDERED: APRESOLINE 20 MG/ML INJ ONE (12:28)
[2022-12-06 12:29] LABS: BASOPHIL % 0.7 % (0.0-0.4); Basophil (Absolute #) 0.04 x10^3/uL (0-0.4); Eosinophil % 1.5 % (0.00-5.0); Eosinophil (Absolute #) 0.09 x10^3/uL (0-0.5); Hematocrit 34.4 % (35-47); Hemoglobin 11.4 g/dL (12.0-16.0); IMMATURE GRAN # 0.05 x10^3u/L (0.00-0.03); IMMATURE GRAN % 0.8 % (0.00-0.4); Lymphocyte (Absolute #) 2.16 x10^3/uL (1.0-4.6); Lymphocytes % 35.6 % (24.0-44.0); Mean Cell Volume 93.5 fL (78-100); Mean Corpuscular Hgb Concent. 33.1 g/dL (32-36); Mean Platelet Volume 9.6 fL (7.5-11.0); Monocyte (Absolute #) 0.52 x10^3/uL (0.0-1.3); Monocytes % 8.6 % (0.0-12.0); Neutrophil % 52.8 % (36.0-66.0); Platelet Count 131 x10^3/uL (150-450); Red Blood Count 3.68 x10^6/uL (4.1-5.4); Red Cell Distribution Width 13.5 % (11.5-14.0); White Blood Count 6.1 x10^3/uL (4.0-10.5)
--- NOTE | 2022-12-06 12:39 | XRAY ---
Indication: Chest pain. Elevated blood pressure. Comparison: September 20, 2021 Portable chest rotated with new mild right middle lobe infiltrate/atelectasis. Remaining lungs clear. Heart now enlarged with new left dual-lead pacemaker. Bony thorax intact.
[2022-12-06 12:46] LABS: ALBUMIN 3.7 g/dL (3.5-5.0); ANION GAP 14.5 MEQ/L (5-15); BILIRUBIN,TOTAL 0.9 mg/dL (0.2-1.3); Calcium 8.5 mg/dL (8.4-10.2); Creatinine 1 1.17 mg/dL (0.52-1.04); EST GLOMERULAR FILTRATION RATE 47.4 ML/MIN; Potassium 4.1 mmol/L (3.5-5.1); Total Protein 7.3 g/dL (6.3-8.2)
[2022-12-06] MEDS ORDERED: Zofran 4 MG/2 ML VIAL IV ONE (14:42)
[2022-12-06] MEDS ORDERED: Zofran 4 MG/2 ML VIAL ONE (14:45)
--- NOTE | 2022-12-06 15:14 | ERPHSYRPT ---
- History of Present Illness Time Seen by Provider: 12/06/22 12:09 Source: patient Exam Limitations: no limitations Patient Subjective Stated Complaint: HTN Triage Nursing Assessment: Patient brought down to ED per outpatient RN. Patient A+O X.3 Patient's skin pink, warm and dry. Patient has 22 gauge noted to left wrist from outpatient. Outpatient RN states patient was coming to have back injection done today and when she got there today her B/P was elevated, which they gave meds and got down. Patient went back to OR and blood pressure was el evated, patient had became nauseated and vomited X 1. Patient complains of headache 5/10. Patient cont to have nausea. Physician History: Patient here with hypertension. Patient was seen at outpatient procedure lab today had elevated blood pressure some mild chest pain threw up once. Therefore was brought to the emergency department. Patient blood pressure here is 212/92. They have been doing several blood pressure adjustments due to her chronic renal failure. Patient follows with cardiology and nephrology. Allergies/Adverse Reactions: No Known Drug Allergies Allergy (Verified 12/06/22 11:59) Home Medications: Atorvastatin Calcium [Lipitor 20MG Tablet] 10 mg PO HS 04/11/17 [History] Carvedilol [Coreg ] 3.125 mg PO BID 04/11/17 [History] Folic Acid 800 mcg PO DAILY 04/11/17 [History] Gabapentin [Neurontin] 400 mg PO TID 04/11/17 [History] Alendronate Sodium 70 mg [Fosamax 70 MG] 70 mg PO Q7D@0600 09/17/21 [History] Furosemide 40 mg [Lasix 40 MG] 40 mg PO DAILY 09/17/21 [History] Golimumab [Simponi Aria] 50 mg IM UD 09/17/21 [History] Isosorbide Mononitrate [Isosorbide Mononitrate ER] 30 mg PO DAILY 09/17/21 [History] Losartan Potassium 50 mg [Cozaar 50 MG] 50 mg PO DAILY 09/17/21 [History] Metformin HCl Xr 500 mg [Glucophage XR 500 MG] 500 mg PO DAILY 09/17/21 [History] Potassium Chloride 10 meq PO BID 09/17/21 [History] Hx Tetanus, Diphtheria Vaccination/Date Given: Yes Hx Influenza Vaccination/Date Given: Yes Hx Pneumococcal Vaccination/Date Given: Yes Immunizations Up to Date: Yes Travel Risk - International Travel Have you traveled outside of the country in past 3 weeks: No - Coronavirus Screening Are you exhibiting any of the following symptoms?: No Close contact with a COVID-19 positive Pt in past 14-21 Days: No - Vaccine Status Have you recieved a Covid-19 vaccination: Yes Epic Radiant Analyst: Unknown - Vaccination Dates Dates if Unknown: na - Review of Systems Constitutional: No Fever, No Chills Eyes: No Symptoms Ears, Nose, & Throat: No Symptoms Respiratory: No Cough, No Dyspnea Cardiac: Chest Pain, No Edema, No Syncope Abdominal/Gastrointestinal: Nausea, No Abdominal Pain, No Vomiting, No Diarrhea Genitourinary Symptoms: No Dysuria Musculoskeletal: No Back Pain, No Neck Pain Skin: No Rash Neurological: No Dizziness, No Focal Weakness, No Sensory Changes Psychological: No Symptoms Endocrine: No Symptoms All Other Systems: Reviewed and Negative - Past Medical History Pertinent Past Medical History: Yes Neurological History: No Pertinent History ENT History: Cataracts Cardiac History: Hypertension Respiratory History: No Pertinent History Endocrine Medical History: Diabetes Type II Musculoskeletal History: Osteoarthritis GI Medical History: No Pertinent History History: Other Psycho-Social History: No Pertinent History Female Reproductive Disorders: No Pertinent History Other Medical History: LUPUS, SJOGREN'S, B LE EDEMA. TAIL BONE FRACTURE. - Past Surgical History Past Surgical History: Yes Neuro Surgical History: No Pertinent History Cardiac: Cardiac Catheterization Respiratory: No Pertinent History Gastrointestinal: Cholecystectomy Genitourinary: Other Musculoskeletal: No Pertinent History Female Surgical History: Hysterectomy Other Surgical History: bladder suspension - Social History Smoking Status: Never smoker Exposure to second hand smoke: No Drug Use: none Patient Lives Alone: No Significant Family History: no pertinent family hx - Nursing Vital Signs Nursing Vital Signs: Initial Vital Signs Temperature 97.6 F 12/06/22 11:59 Pulse Rate 81 12/06/22 11:59 Respiratory Rate 17 12/06/22 11:59 Blood Pressure 205/92 12/06/22 11:59 O2 Sat by Pulse Oximetry 97 12/06/22 11:59 Pain Scale Pain Intensity 0 - Physical Exam General Appearance: no apparent distress, alert Eye Exam: PERRL/EOMI, eyes nml inspection Ears, Nose, Throat Exam: normal ENT inspection, TMs normal, pharynx normal, moist mucous membranes Neck Exam: normal inspection, non-tender, supple, full range of motion Respiratory Exam: normal breath sounds, lungs clear, No respiratory distress Cardiovascular Exam: regular rate/rhythm, normal heart sounds, normal peripheral pulses Gastrointestinal/Abdomen Exam: soft, normal bowel sounds, No tenderness, No mass Back Exam: normal inspection, normal range of motion, No CVA tenderness, No vertebral tenderness Extremity Exam: normal inspection, normal range of motion Neurologic Exam: alert, oriented x 3, cooperative, normal mood/affect, sensation nml, No motor deficits Skin Exam: normal color, warm, dry, No rash Lymphatic Exam: No adenopathy SpO2: 95 - Course Nursing assessment & vital signs reviewed: Yes EKG Interpreted by Me: Sinus Rhythm Ordered Tests: Active Orders 24 hr Category Date Time Status Code Status Order ROUTINE Care 12/06/22 14:40 Active EKG-ER Only STAT Care 12/06/22 12:14 Active IV Care Q6H Care 12/06/22 14:40 Active IV Insertion STAT Care 12/06/22 12:[address] in Observation ROUTINE Care 12/06/22 14:40 Active Heart-Healthy Diet Diet 12/07/22 Breakfast Active CHEST 1 VIEW (PORTABLE) Stat Exams 12/06/22 12:14 Completed CBC W DIFF Stat Lab 12/06/22 12:25 Completed CK-Creatinine Phosphokinase Stat Lab 12/06/22 12:25 Completed CMP Stat Lab 12/06/22 12:25 Completed D-DIMER QUANTITATIVE Stat Lab 12/06/22 12:25 Completed NT PRO BNPII Stat Lab 12/06/22 12:25 Completed POCT GLUCOSE Stat Lab 12/06/22 09:11 Completed POCT GLUCOSE Stat Lab 12/06/22 11:01 Completed POCT GLUCOSE Stat Lab 12/06/22 11:30 Completed PROCALCITONIN Stat Lab 12/06/22 12:25 Completed TROPONIN Q4H Lab 12/06/22 12:25 Completed TROPONIN Q4H Lab 12/06/22 16:15 Ordered TROPONIN Q4H Lab 12/06/22 20:15 Ordered Transfer Order Routine Transfer 12/06/22 Ordered Medication Summary Generic Name Dose Route Start Last Admin Trade Name Freq PRN Reason Stop Dose Admin Furosemide 40 mg 12/07/22 10:00 Furosemide 100 Mg/10 Ml Vial IV 01/06/23 09:59 DAILY HARMAN Discontinued Medications Generic Name Dose Route Start Last Admin Trade Name Anuj PRN Reason Stop Dose Admin Aspirin 324 mg 12/06/22 12:14 12/06/22 12:30 Aspirin 81 Mg Tab.Chew PO 12/06/22 12:15 324 mg STAT ONE Administration Aspirin Confirm 12/06/22 12:27 Aspirin 81 Mg Tab.Chew Administered 12/06/22 12:28 Dose 324 mg .ROUTE .STK-MED ONE Hydralazine HCl Confirm 12/06/22 10:06 Hydralazine Hcl 20 Mg/Ml Vial Administered 12/06/22 10:07 Dose 20 mg .ROUTE .STK-MED ONE Hydralazine HCl 10 mg 12/06/22 12:15 12/06/22 12:30 Hydralazine Hcl 20 Mg/Ml Vial IV 12/06/22 12:16 10 mg STAT ONE Administration Hydralazine HCl Confirm 12/06/22 12:28 Hydralazine Hcl 20 Mg/Ml Vial Administered 12/06/22 12:29 Dose 20 mg .ROUTE .STK-MED ONE Ondansetron HCl 8 mg 12/06/22 14:42 12/06/22 14:45 Ondansetron Hcl 4 Mg/2 Ml Vial IV 12/06/22 14:43 8 mg STAT ONE Administration Ondansetron HCl Confirm 12/06/22 14:45 Ondansetron Hcl 4 Mg/2 Ml Vial Administered 12/06/22 14:46 Dose 8 mg .ROUTE .STK-MED ONE Lab/Rad Data: Laboratory Result Diagrams 12/06/22 12:25 12/06/22 12:25 Laboratory Results 12/06/22 12/06/22 12/06/22 Range/Units 12:25 12:25 12:25 WBC (4.0-10.5) x10^3/uL RBC (4.1-5.4) x10^6/uL Hgb (12.0-16.0) g/dL Hct (35-47) % MCV (78-100) fL MCH (26-32) pg MCHC (32-36) g/dL RDW (11.5-14.0) % Plt Count (150-450) x10^3/uL MPV (7.5-11.0) fL Gran % (36.0-66.0) % Immature Gran % (Auto) (0.00-0.4) % Nucleat RBC Rel Count (0.00-0.1) % Eos # (Auto) (0-0.5) x10^3/uL Immature Gran # (Auto) (0.00-0.03) x10^3u/L Absolute Lymphs (auto) (1.0-4.6) x10^3/uL Absolute Monos (auto) (0.0-1.3) x10^3/uL Absolute Nucleated RBC (0.00-0.01) x10^3u/L Lymphocytes % (24.0-44.0) % Monocytes % (0.0-12.0) % Eosinophils % (0.00-5.0) % Basophils % (0.0-0.4) % Absolute Granulocytes (1.4-6.9) x10^3/uL Basophils # (0-0.4) x10^3/uL D-Dimer 0.71 H* (0.0-0.50) mg/L Sodium (137-145) mmol/L Potassium (3.5-5.1) mmol/L Chloride (98-107) mmol/L Carbon Dioxide (22-30) mmol/L Anion Gap (5-15) MEQ/L BUN (7-17) mg/dL Creatinine (0.52-1.04) mg/dL Estimated GFR ML/MIN Glucose (74-106) mg/dL POC Glucometer (74 to 106) mg/dL Calcium (8.4-10.2) mg/dL Total Bilirubin (0.2-1.3) mg/dL AST (14-36) U/L ALT (0-35) U/L Alkaline Phosphatase (38-126) U/L Creatine Kinase (30-135) U/L Troponin I (0.000-0.034) ng/mL NT-Pro-B Natriuret Pep 6170 (<300) pg/mL Serum Total Protein (6.3-8.2) g/dL Albumin (3.5-5.0) g/dL Procalcitonin 0.068 (0.030-0.080) ng/mL 12/06/22 12/06/22 12/06/22 Range/Units 12:25 12:25 12:25 WBC 6.1 (4.0-10.5) x10^3/uL RBC 3.68 L (4.1-5.4) x10^6/uL Hgb 11.4 L (12.0-16.0) g/dL Hct 34.4 L (35-47) % MCV 93.5 (78-100) fL MCH 31.0 (26-32) pg MCHC 33.1 (32-36) g/dL RDW 13.5 (11.5-14.0) % Plt Count 131 L (150-450) x10^3/uL MPV 9.6 (7.5-11.0) fL Gran % 52.8 (36.0-66.0) % Immature Gran % (Auto) 0.8 H (0.00-0.4) % Nucleat RBC Rel Count 0.0 (0.00-0.1) % Eos # (Auto) 0.09 (0-0.5) x10^3/uL Immature Gran # (Auto) 0.05 H (0.00-0.03) x10^3u/L Absolute Lymphs (auto) 2.16 (1.0-4.6) x10^3/uL Absolute Monos (auto) 0.52 (0.0-1.3) x10^3/uL Absolute Nucleated RBC 0.00 (0.00-0.01) x10^3u/L Lymphocytes % 35.6 (24.0-44.0) % Monocytes % 8.6 (0.0-12.0) % Eosinophils % 1.5 (0.00-5.0) % Basophils % 0.7 (0.0-0.4) % Absolute Granulocytes 3.20 (1.4-6.9) x10^3/uL Basophils # 0.04 (0-0.4) x10^3/uL D-Dimer (0.0-0.50) mg/L Sodium 140 (137-145) mmol/L Potassium 4.1 (3.5-5.1) mmol/L Chloride 110 H (98-107) mmol/L Carbon Dioxide 19 L (22-30) mmol/L Anion Gap 14.5 (5-15) MEQ/L BUN 19 H (7-17) mg/dL Creatinine 1.17 H (0.52-1.04) mg/dL Estimated GFR 47.4 ML/MIN Glucose 154 H (74-106) mg/dL POC Glucometer (74 to 106) mg/dL Calcium 8.5 (8.4-10.2) mg/dL Total Bilirubin 0.90 (0.2-1.3) mg/dL AST 26 (14-36) U/L ALT 21 (0-35) U/L Alkaline Phosphatase 58 (38-126) U/L Creatine Kinase 80 (30-135) U/L Troponin I < 0.012 (0.000-0.034) ng/mL NT-Pro-B Natriuret Pep (<300) pg/mL Serum Total Protein 7.3 (6.3-8.2) g/dL Albumin 3.7 (3.5-5.0) g/dL Procalcitonin (0.030-0.080) ng/mL 12/06/22 12/06/22 12/06/22 Range/Units 11:30 11:01 09:11 WBC (4.0-10.5) x10^3/uL RBC (4.1-5.4) x10^6/uL Hgb (12.0-16.0) g/dL Hct (35-47) % MCV (78-100) fL MCH (26-32) pg MCHC (32-36) g/dL RDW (11.5-14.0) % Plt Count (150-450) x10^3/uL MPV (7.5-11.0) fL Gran % (36.0-66.0) % Immature Gran % (Auto) (0.00-0.4) % Nucleat RBC Rel Count (0.00-0.1) % Eos # (Auto) (0-0.5) x10^3/uL Immature Gran # (Auto) (0.00-0.03) x10^3u/L Absolute Lymphs (auto) (1.0-4.6) x10^3/uL Absolute Monos (auto) (0.0-1.3) x10^3/uL Absolute Nucleated RBC (0.00-0.01) x10^3u/L Lymphocytes % (24.0-44.0) % Monocytes % (0.0-12.0) % Eosinophils % (0.00-5.0) % Basophils % (0.0-0.4) % Absolute Granulocytes (1.4-6.9) x10^3/uL Basophils # (0-0.4) x10^3/uL D-Dimer (0.0-0.50) mg/L Sodium (137-145) mmol/L Potassium (3.5-5.1) mmol/L Chloride (98-107) mmol/L Carbon Dioxide (22-30) mmol/L Anion Gap (5-15) MEQ/L BUN (7-17) mg/dL Creatinine (0.52-1.04) mg/dL Estimated GFR ML/MIN Glucose (74-106) mg/dL POC Glucometer 150 H 138 H 126 H (74 to 106) mg/dL Calcium (8.4-10.2) mg/dL Total Bilirubin (0.2-1.3) mg/dL AST (14-36) U/L ALT (0-35) U/L Alkaline Phosphatase (38-126) U/L Creatine Kinase (30-135) U/L Troponin I (0.000-0.034) ng/mL NT-Pro-B Natriuret Pep (<300) pg/mL Serum Total Protein (6.3-8.2) g/dL Albumin (3.5-5.0) g/dL Procalcitonin (0.030-0.080) ng/mL - Progress Progress Note: 12/06/22 15:15 differential diagnosis includes: PNA, STEMI, NSTEMI, other infection, musculoskeletal pain, pneumothorax - We'll obtain basic labs, fluids, EKG, troponin, chest x-ray - first troponin is negative - EKG shows no ST changes - my read. See full read below. - O2 saturations consistently greater than 95%. - CXR shows mild infiltrate versus atelectasis (normal procalcitonin, no elevated white blood cell therefore we did not start antibiotics) - D-dimer is slightly elevated, elevated GFR, creatinine. Therefore we will hold off on IV contrast of a CTA today. Lower suspicion for PE given other causes of symptoms Blood pressure did come down with IV hydralazine here. 185/91. I did speak over the phone the patient's termite renewal inspector, Dr. Salomon. He did recommend admission to the hospital, continue close monitoring, serial troponins, IV La six. Therefore, we did discuss with on-call telehospitalist, Dr. Merino. He did accept the patient for possible admission. Counseled pt/family regarding: lab results, diagnosis, need for follow-up, rad results - Departure Departure Disposition: Observation Clinical Impression: Elevated blood pressure reading, Chest discomfort Condition: Stable Critical Care Time: No Referrals: KATHIE HODGE MD [Primary Care Provider] - Follow up/PCP as directed
[2022-12-06] MEDS ORDERED: Lasix 40 MG/4 ML ONE (16:01)
[2022-12-06] MEDS ORDERED: Lasix 40 MG/4 ML IV ONE (16:02)
[2022-12-06] MEDS ORDERED: Coreg 3.125 MG PO ONE (16:04)
[2022-12-06] MEDS ORDERED: Coreg 3.125 MG ONE (16:11)
[2022-12-06] MEDS ORDERED: Apresoline 25 MG TABLET PO PRN (17:39)
[2022-12-06] MEDS ORDERED: Cozaar 50 MG PO ONE (18:00)
[2022-12-06] MEDS ORDERED: Apresoline 25 MG TABLET ONE (18:06)
[2022-12-06] MEDS ORDERED: PHENERGAN 25 MG PO PRN (18:18)
[2022-12-06] MEDS ORDERED: HUMALOG SQ PRN (18:18)
--- NOTE | 2022-12-06 18:23 | PCM.HP ---
History of Present Illness - Chief Complaint Chief Complaint: HTN Date: 12/06/22 History of Present Illness: 81-year-old woman with history of hypertension, CKD stage III, DM2, lupus, Sjogren's, sick sinus syndrome, and peripheral neuropathy, who presented in pain clinic with hypertension, headache, and chest pain. Patient notes that she is a longstanding history of difficult to control hypertension requiring multiple medications. Most recently, her bottle house quality control technician, Dr. Lopez, noted that patient was having worsening renal function, and decreased or stopped many of her antihypertensives. Of note, he stopped her furosemide and decreased her losartan. She had improving renal function, but she began to have higher blood pressure. Just recently, they started to uptitrate her blood pressure meds again, and put her on spironolactone, although still holding her Lasix. She has been having some intermittent headache for the past 2 weeks, associated with elevations in blood pressure. Today, she was at her pain clinic for back injection when she was noted to have severe hypertension of 212/92. Afterward, she developed severe headache, associated with nausea with 1 episode of vomiting. Just prior to vomiting, she had a few seconds of substernal chest pressure associated with some diaphoresis, relieved immediately after vomiting. Has no further chest pain or dyspnea since then, and no further nausea since her headache has improved. Still has some mild headache, associated with some mild vision blurriness, but no focal weakness or numbness. She denies hematuria, melena, or hematochezia. However, she has noted some worsening leg edema in the past few weeks, as well as early satiety. She has difficulty sleeping at night due to insomnia, but denies orthopnea. Denies PND. However, she has had multiple falls, 4 times in the last 2-1/2 weeks. - Review of Systems Constitutional: No Fever, No Chills, No Fatigue, No Night Sweats, No Weakness, No Weight Loss Eyes: Vision Changes, No Eye Pain, No Photophobia, No Double Vision Ears, Nose, & Throat: No Nose Discharge, No Throat Pain, No Throat Swelling Respiratory: Short Of Breath, No Cough, No Orthopnea, No Wheezing Cardiac: Chest Pain, Edema, No Palpitations, No Syncope, No Orthopnea, No PND Abdominal/Gastrointestinal: Nausea, Vomiting, No Abdominal Pain, No Diarrhea, No Constipation, No Hematemesis, No Hematochezia, No Melena Genitourinary Symptoms: No Dysuria, No Hematuria Musculoskeletal: Back Pain, Joint Pain Skin: No Symptoms Neurological: Dizziness, Headache, No Focal Weakness, No Gait Changes, No Seizure, No Sensory Changes, No Speech Changes Psychological: No Symptoms Endocrine: No Symptoms Hematologic/Lymphatic: No Symptoms Immunological/Allergic: No Symptoms Medications & Allergies Home Medications: Home Medication List Atorvastatin Calcium [Lipitor 20MG Tablet] 10 mg PO HS 04/11/17 [History Confirmed 12/06/22] Carvedilol [Coreg ] 6.25 mg PO BID 04/11/17 [History Confirmed 12/06/22] Gabapentin [Neurontin] 300 mg PO QID 04/11/17 [History Confirmed 12/06/22] Isosorbide Mononitrate [Isosorbide Mononitrate ER] 60 mg PO DAILY 09/17/21 [History Confirmed 12/06/22] Losartan Potassium 50 mg [Cozaar 50 MG] 50 mg PO DAILY 09/17/21 [History Confirmed 12/06/22] Metformin HCl Xr 500 mg [Glucophage XR 500 MG] 500 mg PO BID 09/17/21 [History Confirmed 12/06/22] Potassium Chloride 10 meq PO BID 09/17/21 [History Confirmed 12/06/22] Aspirin EC 81 mg [Ecotrin 81 mg] 81 mg PO DAILY 12/06/22 [History Confirmed 12/06/22] Cyanocobalamin 500 Mcg [Vitamin B-12 500 MCG] 500 mcg PO DAILY 12/06/22 [History Confirmed 12/06/22] Folic Acid 1 mg [Folate 1 mg] 2 mg PO DAILY 12/06/22 [History Confirmed 12/06/22] Spironolactone 25 mg [Aldactone 25 MG] 25 mg PO BID 12/06/22 [History Confirmed 12/06/22] Allergies/Adverse Reactions: Allergies Allergy/AdvReac Type Severity Reaction Status Date / Time No Known Drug Allergies Allergy Verified 12/06/22 11:59 - Past Medical History Past Medical History: Yes Neurological History: No Pertinent History ENT History: Cataracts Cardiac History: Hypertension Respiratory History: No Pertinent History Endocrine Medical History: Diabetes Type II Musculoskelatal History: Osteoarthritis GI Medical History: No Pertinent History History: Renal Disease Pyscho-Social History: No Pertinent History Reproductive Disorders: No Pertinent History Comment: LUPUS, SJOGREN'S, B LE EDEMA. TAIL BONE FRACTURE. - Female History Are you now?: No - Past Surgical History Past Surgical History: Yes Neuro Surgical History: No Pertinent History Cardiac History: Cardiac Catheterization Respiratory Surgery: No Pertinent History GI Surgical History: Cholecystectomy Genitourinary Surgical Hx: Other Musculskeletal Surgical Hx: No Pertinent History Female Surgical History: Hysterectomy Other Surgical History: bladder suspension - Social History Smoking Status: Never smoker Exposure to second hand smoke: No Alcohol: None Drug Use: none Significant Family History: no pertinent family hx (No significant hypertension. No cardiac disease.) - Physical Exam Vital Signs: Vital Signs - 24 hr Temp Pulse Resp BP BP Pulse Ox 12/06/22 17:19 97.1 F 233/104 12/06/22 15:45 88 22 208/96 95 12/06/22 15:30 87 28 H 196/93 96 12/06/22 15:20 95 12/06/22 15:15 86 17 199/90 95 12/06/22 15:00 87 29 H 203/90 203/90 96 12/06/22 14:45 88 20 218/102 96 12/06/22 14:30 92 H 26 H 199/98 97 12/06/22 12:44 86 18 181/91 97 12/06/22 11:59 97.6 F 81 17 205/92 97 General Appearance: no apparent distress (Sitting up in chair) Neurologic Exam: alert, oriented x 3, normal mood/affect, No motor deficits, No sensory deficit, No facial droop, No slurred speech Eye Exam: PERRL/EOMI, eyes nml inspection Neck Exam: normal inspection Respiratory Exam: normal breath sounds, lungs clear, No respiratory distress, No accessory muscle use Cardiovascular Exam: regular rate/rhythm, edema (Mild pitting edema to bilateral ankles), No murmur, No gallop Gastrointestinal/Abdomen Exam: soft, No tenderness, No distention Skin Exam: No rash, No petechiae Results - Labs Lab/Micro Results: Lab Results-Last 24 Hours 12/06/22 12/06/22 12/06/22 Range/Units 09:11 11:01 11:30 WBC (4.0-10.5) x10^3/uL RBC (4.1-5.4) x10^6/uL Hgb (12.0-16.0) g/dL Hct (35-47) % MCV (78-100) fL MCH (26-32) pg MCHC (32-36) g/dL RDW (11.5-14.0) % Plt Count (150-450) x10^3/uL MPV (7.5-11.0) fL Gran % (36.0-66.0) % Immature Gran % (Auto) (0.00-0.4) % Nucleat RBC Rel Count (0.00-0.1) % Eos # (Auto) (0-0.5) x10^3/uL Immature Gran # (Auto) (0.00-0.03) x10^3u/L Absolute Lymphs (auto) (1.0-4.6) x10^3/uL Absolute Monos (auto) (0.0-1.3) x10^3/uL Absolute Nucleated RBC (0.00-0.01) x10^3u/L Lymphocytes % (24.0-44.0) % Monocytes % (0.0-12.0) % Eosinophils % (0.00-5.0) % Basophils % (0.0-0.4) % Absolute Granulocytes (1.4-6.9) x10^3/uL Basophils # (0-0.4) x10^3/uL D-Dimer (0.0-0.50) mg/L Sodium (137-145) mmol/L Potassium (3.5-5.1) mmol/L Chloride (98-107) mmol/L Carbon Dioxide (22-30) mmol/L Anion Gap (5-15) MEQ/L BUN (7-17) mg/dL Creatinine (0.52-1.04) mg/dL Estimated GFR ML/MIN Glucose (74-106) mg/dL POC Glucometer 126 H 138 H 150 H (74 to 106) mg/dL Calcium (8.4-10.2) mg/dL Total Bilirubin (0.2-1.3) mg/dL AST (14-36) U/L ALT (0-35) U/L Alkaline Phosphatase (38-126) U/L Creatine Kinase (30-135) U/L Troponin I (0.000-0.034) ng/mL NT-Pro-B Natriuret Pep (<300) pg/mL Serum Total Protein (6.3-8.2) g/dL Albumin (3.5-5.0) g/dL Procalcitonin (0.030-0.080) ng/mL 12/06/22 12/06/22 12/06/22 Range/Units 12:25 12:25 12:25 WBC 6.1 (4.0-10.5) x10^3/uL RBC 3.68 L (4.1-5.4) x10^6/uL Hgb 11.4 L (12.0-16.0) g/dL Hct 34.4 L (35-47) % MCV 93.5 (78-100) fL MCH 31.0 (26-32) pg MCHC 33.1 (32-36) g/dL RDW 13.5 (11.5-14.0) % Plt Count 131 L (150-450) x10^3/uL MPV 9.6 (7.5-11.0) fL Gran % 52.8 (36.0-66.0) % Immature Gran % (Auto) 0.8 H (0.00-0.4) % Nucleat RBC Rel Count 0.0 (0.00-0.1) % Eos # (Auto) 0.09 (0-0.5) x10^3/uL Immature Gran # (Auto) 0.05 H (0.00-0.03) x10^3u/L Absolute Lymphs (auto) 2.16 (1.0-4.6) x10^3/uL Absolute Monos (auto) 0.52 (0.0-1.3) x10^3/uL Absolute Nucleated RBC 0.00 (0.00-0.01) x10^3u/L Lymphocytes % 35.6 (24.0-44.0) % Monocytes % 8.6 (0.0-12.0) % Eosinophils % 1.5 (0.00-5.0) % Basophils % 0.7 (0.0-0.4) % Absolute Granulocytes 3.20 (1.4-6.9) x10^3/uL Basophils # 0.04 (0-0.4) x10^3/uL D-Dimer (0.0-0.50) mg/L Sodium 140 (137-145) mmol/L Potassium 4.1 (3.5-5.1) mmol/L Chloride 110 H (98-107) mmol/L Carbon Dioxide 19 L (22-30) mmol/L Anion Gap 14.5 (5-15) MEQ/L BUN 19 H (7-17) mg/dL Creatinine 1.17 H (0.52-1.04) mg/dL Estimated GFR 47.4 ML/MIN Glucose 154 H (74-106) mg/dL POC Glucometer (74 to 106) mg/dL Calcium 8.5 (8.4-10.2) mg/dL Total Bilirubin 0.90 (0.2-1.3) mg/dL AST 26 (14-36) U/L ALT 21 (0-35) U/L Alkaline Phosphatase 58 (38-126) U/L Creatine Kinase 80 (30-135) U/L Troponin I < 0.012 (0.000-0.034) ng/mL NT-Pro-B Natriuret Pep (<300) pg/mL Serum Total Protein 7.3 (6.3-8.2) g/dL Albumin 3.7 (3.5-5.0) g/dL Procalcitonin (0.030-0.080) ng/mL 12/06/22 12/06/22 12/06/22 Range/Units 12:25 12:25 12:25 WBC (4.0-10.5) x10^3/uL RBC (4.1-5.4) x10^6/uL Hgb (12.0-16.0) g/dL Hct (35-47) % MCV (78-100) fL MCH (26-32) pg MCHC (32-36) g/dL RDW (11.5-14.0) % Plt Count (150-450) x10^3/uL MPV (7.5-11.0) fL Gran % (36.0-66.0) % Immature Gran % (Auto) (0.00-0.4) % Nucleat RBC Rel Count (0.00-0.1) % Eos # (Auto) (0-0.5) x10^3/uL Immature Gran # (Auto) (0.00-0.03) x10^3u/L Absolute Lymphs (auto) (1.0-4.6) x10^3/uL Absolute Monos (auto) (0.0-1.3) x10^3/uL Absolute Nucleated RBC (0.00-0.01) x10^3u/L Lymphocytes % (24.0-44.0) % Monocytes % (0.0-12.0) % Eosinophils % (0.00-5.0) % Basophils % (0.0-0.4) % Absolute Granulocytes (1.4-6.9) x10^3/uL Basophils # (0-0.4) x10^3/uL D-Dimer 0.71 H* (0.0-0.50) mg/L Sodium (137-145) mmol/L Potassium (3.5-5.1) mmol/L Chloride (98-107) mmol/L Carbon Dioxide (22-30) mmol/L Anion Gap (5-15) MEQ/L BUN (7-17) mg/dL Creatinine (0.52-1.04) mg/dL Estimated GFR ML/MIN Glucose (74-106) mg/dL POC Glucometer (74 to 106) mg/dL Calcium (8.4-10.2) mg/dL Total Bilirubin (0.2-1.3) mg/dL AST (14-36) U/L ALT (0-35) U/L Alkaline Phosphatase (38-126) U/L Creatine Kinase (30-135) U/L Troponin I (0.000-0.034) ng/mL NT-Pro-B Natriuret Pep 6170 (<300) pg/mL Serum Total Protein (6.3-8.2) g/dL Albumin (3.5-5.0) g/dL Procalcitonin 0.068 (0.030-0.080) ng/mL 12/06/22 Range/Units 16:20 WBC (4.0-10.5) x10^3/uL RBC (4.1-5.4) x10^6/uL Hgb (12.0-16.0) g/dL Hct (35-47) % MCV (78-100) fL MCH (26-32) pg MCHC (32-36) g/dL RDW (11.5-14.0) % Plt Count (150-450) x10^3/uL MPV (7.5-11.0) fL Gran % (36.0-66.0) % Immature Gran % (Auto) (0.00-0.4) % Nucleat RBC Rel Count (0.00-0.1) % Eos # (Auto) (0-0.5) x10^3/uL Immature Gran # (Auto) (0.00-0.03) x10^3u/L Absolute Lymphs (auto) (1.0-4.6) x10^3/uL Absolute Monos (auto) (0.0-1.3) x10^3/uL Absolute Nucleated RBC (0.00-0.01) x10^3u/L Lymphocytes % (24.0-44.0) % Monocytes % (0.0-12.0) % Eosinophils % (0.00-5.0) % Basophils % (0.0-0.4) % Absolute Granulocytes (1.4-6.9) x10^3/uL Basophils # (0-0.4) x10^3/uL D-Dimer (0.0-0.50) mg/L Sodium (137-145) mmol/L Potassium (3.5-5.1) mmol/L Chloride (98-107) mmol/L Carbon Dioxide (22-30) mmol/L Anion Gap (5-15) MEQ/L BUN (7-17) mg/dL Creatinine (0.52-1.04) mg/dL Estimated GFR ML/MIN Glucose (74-106) mg/dL POC Glucometer (74 to 106) mg/dL Calcium (8.4-10.2) mg/dL Total Bilirubin (0.2-1.3) mg/dL AST (14-36) U/L ALT (0-35) U/L Alkaline Phosphatase (38-126) U/L Creatine Kinase (30-135) U/L Troponin I 0.015 (0.000-0.034) ng/mL NT-Pro-B Natriuret Pep (<300) pg/mL Serum Total Protein (6.3-8.2) g/dL Albumin (3.5-5.0) g/dL Procalcitonin (0.030-0.080) ng/mL - Radiology Impressions Radiology Exams & Impressions: Radiology Procedures Category Date Time Status CHEST 1 VIEW (PORTABLE) Stat Exams 12/06/22 12:14 Completed Chest x-ray: Right middle lobe infiltrate versus atelectasis. Presence of dual- lead pacemaker. (Images personally reviewed.) Assessment/Plan (1) HTN (hypertension) Current Visit: No Status: Chronic Qualifiers: Hypertension type: essential hypertension Qualified Code(s): I10 - Essential (primary) hypertension Assessment & Plan: 81-year-old woman with a history of hypertension, DM 2, CKD 3, lupus, Sjogren's, sick sinus syndrome, and peripheral neuropathy, who presents from pain medicine clinic with hypertensive urgency, associated with evidence of congestive heart failure and very transient chest pain. ## Hypertension patient has history of very difficult to control hypertension. Recently had adjustments to her blood pressure medication secondary to worsening of her renal function, and this has apparently led to poorly controlled blood pressures. Currently has been in the 200s/90s. This has been causing some fluid retention as well as some headache and nausea today. Other than the fluid retention, there is no other evidence of endorgan damage. No hematuria. No elevated troponin. Resume home regimen of spironolactone 25 BID, Coreg 6.25 BID, losartan 50 daily Start PRN hydralazine 25 mg q.6 hours for SBP greater than 160 Expect will need to titrate her above medications, particularly her carvedilol, for better blood pressure control ## Congestive heart failure suspected diastolic heart failure secondary to longstanding hypertension. Patient was on furosemide previously, but this was stopped because of acute kidney injury. Now acutely worsening in the setting of high afterload from severely elevated blood pressures. Now with pulmonary edema, early satiety, and elevation of BNP from 700 up to 6170. Patient follows with three dimensional map modeler Dr. Salomon, who was contacted by the ED provider. Give Lasix 40 mg IV Afterload control with blood pressure control as above Check echocardiogram ## Chest pain atypical, lasting only a few seconds, in the setting of severe hypertension. Initial troponin is negative, arguing against endorgan damage from hypertension. Follow on telemetry Serial troponins ## CKD stage III. It appears her creatinine has improved, from peak of 2.1 in August to 1.2 today. Follow BMP with initiation of diuretics Continue losartan as above ## Type 2 diabetes only requiring metformin at home. However, somewhat questionable to use this given her prior renal function, although improving now with GFR around 45. Continue metformin Cover with low-dose sliding scale insulin ## Recurrent falls unclear if this is actually associated with her hypertension, although it is contemporaneous. PT evaluate and treat ## Right middle lobe atelectasis differential diagnosis includes pneumonia, but patient has no fever, no cough, no leukocytosis, and her procalcitonin is very low. No plans for evaluation or coverage for pneumonia and less patient develops symptoms CODE STATUS: Full code Prophylaxis: Ambulate, short stay Entirety of encounter took place via telemedicine. Patient consented to telemedicine. Code(s): I10 - ESSENTIAL (PRIMARY) HYPERTENSION (2) CHF (congestive heart failure) Current Visit: Yes Status: Acute Code(s): I50.9 - HEART FAILURE, UNSPECIFIED (3) CKD (chronic kidney disease) stage 3, GFR 30-59 ml/min Current Visit: Yes Status: Acute Code(s): N18.30 - CHRONIC KIDNEY DISEASE, STAGE 3 UNSPECIFIED (4) Chest discomfort Current Visit: Yes Status: Acute Code(s): R07.89 - OTHER CHEST PAIN Telemedicine Encounter - Telemedicine Encounter Telemedicine Encounter: The entirety of this encounter was performed via Telemedicine"
[2022-12-06] MEDS ORDERED: COREG 12.5 MG ONE (20:15)
[2022-12-06] MEDS: Coreg PO SCH (20:18)
[2022-12-06] MEDS: Zofran 4 MG/2 ML VIAL IV PRN (20:35)
[2022-12-06] MEDS ORDERED: TYLENOL 325 MG PO PRN (21:11)
[2022-12-06] MEDS ORDERED: NORCO 5/325 MG PO PRN (21:14)
[2022-12-06] MEDS: Apresoline 25 MG TABLET PO PRN (21:53)
[2022-12-06] MEDS: Zocor 10MG PO SCH (21:57)
[2022-12-06] MEDS ORDERED: NEURONTIN PO ONE (22:00)
[2022-12-06] MEDS ORDERED: Aldactone 25 MG PO ONE (22:00)
[2022-12-06] MEDS ORDERED: Klor Con PO ONE (22:00)
[2022-12-06] MEDS ORDERED: Coreg PO ONE (22:00)
[2022-12-07] MEDS: Coreg PO SCH (00:02)
[2022-12-07] MEDS: Apresoline 25 MG TABLET PO PRN (04:19)
[2022-12-07] MEDS: Zofran 4 MG/2 ML VIAL IV PRN (05:45)
[2022-12-07 05:57] LABS: ANION GAP 14.7 MEQ/L (5-15); Calcium 8.3 mg/dL (8.4-10.2); Creatinine 1 1.62 mg/dL (0.52-1.04); EST GLOMERULAR FILTRATION RATE 32.6 ML/MIN
[2022-12-07 05:59] LABS: Hematocrit 35.6 % (35-47); Hemoglobin 11.8 g/dL (12.0-16.0); Mean Cell Volume 94.7 fL (78-100); Mean Corpuscular Hemoglobin 31.4 pg (26-32); Mean Corpuscular Hgb Concent. 33.1 g/dL (32-36); Mean Platelet Volume 10.1 fL (7.5-11.0); Platelet Count 151 x10^3/uL (150-450); Red Blood Count 3.76 x10^6/uL (4.1-5.4); Red Cell Distribution Width 14.1 % (11.5-14.0)
[2022-12-07] MEDS ORDERED: Glucophage XR 500 MG PO SCH (08:00)
[2022-12-07] MEDS ORDERED: Cozaar 50 MG PO SCH (10:00)
[2022-12-07] MEDS ORDERED: Lasix 40 MG PO SCH (10:00)
[2022-12-07] MEDS ORDERED: Furosemide 100mg/10 ml Vial IV SCH (10:00)
[2022-12-07] MEDS: ECOTRIN 81 MG PO SCH (11:09)
[2022-12-07] MEDS: Imdur 60MG PO SCH (11:09)
[2022-12-07] MEDS: Klor Con PO SCH ×2 (11:09→22:54)
[2022-12-07] MEDS: NORVASC 5 MG PO SCH (11:09)
[2022-12-07] MEDS: NEURONTIN PO SCH ×4 (11:09→22:54)
[2022-12-07] MEDS: COREG 12.5 MG PO SCH ×2 (11:09→22:53)
[2022-12-07] MEDS: Aldactone 25 MG PO SCH ×2 (11:10→22:54)
[2022-12-07] MEDS: Vitamin B-12 500 MCG PO SCH (11:10)
[2022-12-07] MEDS: FOLATE 1 MG PO SCH (11:10)
[2022-12-07] MEDS ORDERED: CLONIDINE 0.1 MG TABLET PO PRN (13:00)
--- NOTE | 2022-12-07 13:11 | PCM.NOTE ---
Date and Time: 12/07/22 1301 Subjective Assessment: Overnight, patient had persistent hypertension with systolic blood pressure in the 200s. She also had persistent severe headache. This morning, blood pressure initially coming down a little, in the 180s over 90s. Her headache has resolved. She denies any dyspnea. She had fair urine output overnight with the Lasix. She denies chest pain, dyspnea, or nausea today. - Review of Systems Constitutional: No Fever Neurological: Headache All Other Systems: Reviewed and Negative Objective Exam General Appearance: no apparent distress Neurologic Exam: alert, oriented x 3, normal mood/affect Skin Exam: No rash Eye Exam: eyes nml inspection Respiratory Exam: normal breath sounds, No lungs clear, No respiratory distress Cardiovascular Exam: regular rate/rhythm, edema (Mild pedal edema improved today), No murmur Gastrointestinal/Abdomen Exam: soft, No tenderness, No distention OBJECTIVE DATA Vital Signs: Vital Signs - 24 hr Temp Pulse Resp BP BP BP Pulse Ox 12/07/22 11:59 98.7 F 74 16 200/88 96 12/07/22 08:56 78 186/81 12/07/22 07:42 97.5 F 74 16 190/83 95 12/07/22 04:00 98.0 F 74 18 190/82 95 12/07/22 00:00 98.0 F 76 18 161/78 95 12/06/22 21:30 242/109 12/06/22 19:45 97.8 F 77 18 224/101 96 12/06/22 17:19 97.1 F 233/104 12/06/22 15:45 88 22 208/96 95 12/06/22 15:30 87 28 H 196/93 96 12/06/22 15:20 95 12/06/22 15:15 86 17 199/90 95 12/06/22 15:00 87 29 H 203/90 203/90 96 12/06/22 14:45 88 20 218/102 96 12/06/22 14:30 92 H 26 H 199/98 97 Pain Assessment - Last Documented Pain Intensity 5 Pain Scale Used 0-10 Pain Scale Intake and Output: Intake & Output 12/05/22 12/06/22 12/07/22 12/08/22 11:59 11:59 11:59 11:59 Intake Total 400 Balance 400 Weight 72.575 kg 72.575 kg Lab Results: Lab Results-Last 24 Hours 12/06/22 12/06/22 12/06/22 Range/Units 12:25 12:25 12:25 WBC (4.0-10.5) x10^3/uL RBC (4.1-5.4) x10^6/uL Hgb (12.0-16.0) g/dL Hct (35-47) % MCV (78-100) fL MCH (26-32) pg MCHC (32-36) g/dL RDW (11.5-14.0) % Plt Count (150-450) x10^3/uL MPV (7.5-11.0) fL D-Dimer (0.0-0.50) mg/L Sodium 140 (137-145) mmol/L Potassium 4.1 (3.5-5.1) mmol/L Chloride 110 H (98-107) mmol/L Carbon Dioxide 19 L (22-30) mmol/L Anion Gap 14.5 (5-15) MEQ/L BUN 19 H (7-17) mg/dL Creatinine 1.17 H (0.52-1.04) mg/dL Estimated GFR 47.4 ML/MIN Glucose 154 H (74-106) mg/dL POC Glucometer (74 to 106) mg/dL Calcium 8.5 (8.4-10.2) mg/dL Total Bilirubin 0.90 (0.2-1.3) mg/dL AST 26 (14-36) U/L ALT 21 (0-35) U/L Alkaline Phosphatase 58 (38-126) U/L Creatine Kinase 80 (30-135) U/L Troponin I < 0.012 (0.000-0.034) ng/mL NT-Pro-B Natriuret Pep 6170 (<300) pg/mL Serum Total Protein 7.3 (6.3-8.2) g/dL Albumin 3.7 (3.5-5.0) g/dL Procalcitonin (0.030-0.080) ng/mL 12/06/22 12/06/22 12/06/22 Range/Units 12:25 12:25 16:20 WBC (4.0-10.5) x10^3/uL RBC (4.1-5.4) x10^6/uL Hgb (12.0-16.0) g/dL Hct (35-47) % MCV (78-100) fL MCH (26-32) pg MCHC (32-36) g/dL RDW (11.5-14.0) % Plt Count (150-450) x10^3/uL MPV (7.5-11.0) fL D-Dimer 0.71 H* (0.0-0.50) mg/L Sodium (137-145) mmol/L Potassium (3.5-5.1) mmol/L Chloride (98-107) mmol/L Carbon Dioxide (22-30) mmol/L Anion Gap (5-15) MEQ/L BUN (7-17) mg/dL Creatinine (0.52-1.04) mg/dL Estimated GFR ML/MIN Glucose (74-106) mg/dL POC Glucometer (74 to 106) mg/dL Calcium (8.4-10.2) mg/dL Total Bilirubin (0.2-1.3) mg/dL AST (14-36) U/L ALT (0-35) U/L Alkaline Phosphatase (38-126) U/L Creatine Kinase (30-135) U/L Troponin I 0.015 (0.000-0.034) ng/mL NT-Pro-B Natriuret Pep (<300) pg/mL Serum Total Protein (6.3-8.2) g/dL Albumin (3.5-5.0) g/dL Procalcitonin 0.068 (0.030-0.080) ng/mL 12/06/22 12/06/22 12/07/22 Range/Units 19:59 21:38 05:04 WBC 7.0 (4.0-10.5) x10^3/uL RBC 3.76 L (4.1-5.4) x10^6/uL Hgb 11.8 L (12.0-16.0) g/dL Hct 35.6 (35-47) % MCV 94.7 (78-100) fL MCH 31.4 (26-32) pg MCHC 33.1 (32-36) g/dL RDW 14.1 H (11.5-14.0) % Plt Count 151 (150-450) x10^3/uL MPV 10.1 (7.5-11.0) fL D-Dimer (0.0-0.50) mg/L Sodium (137-145) mmol/L Potassium (3.5-5.1) mmol/L Chloride (98-107) mmol/L Carbon Dioxide (22-30) mmol/L Anion Gap (5-15) MEQ/L BUN (7-17) mg/dL Creatinine (0.52-1.04) mg/dL Estimated GFR ML/MIN Glucose (74-106) mg/dL POC Glucometer 148 H (74 to 106) mg/dL Calcium (8.4-10.2) mg/dL Total Bilirubin (0.2-1.3) mg/dL AST (14-36) U/L ALT (0-35) U/L Alkaline Phosphatase (38-126) U/L Creatine Kinase (30-135) U/L Troponin I 0.022 (0.000-0.034) ng/mL NT-Pro-B Natriuret Pep (<300) pg/mL Serum Total Protein (6.3-8.2) g/dL Albumin (3.5-5.0) g/dL Procalcitonin (0.030-0.080) ng/mL 12/07/22 12/07/22 12/07/22 Range/Units 05:04 07:18 11:23 WBC (4.0-10.5) x10^3/uL RBC (4.1-5.4) x10^6/uL Hgb (12.0-16.0) g/dL Hct (35-47) % MCV (78-100) fL MCH (26-32) pg MCHC (32-36) g/dL RDW (11.5-14.0) % Plt Count (150-450) x10^3/uL MPV (7.5-11.0) fL D-Dimer (0.0-0.50) mg/L Sodium 136 L (137-145) mmol/L Potassium 4.0 (3.5-5.1) mmol/L Chloride 105 (98-107) mmol/L Carbon Dioxide 20 L (22-30) mmol/L Anion Gap 14.7 (5-15) MEQ/L BUN 23 H (7-17) mg/dL Creatinine 1.62 H (0.52-1.04) mg/dL Estimated GFR 32.6 ML/MIN Glucose 139 H (74-106) mg/dL POC Glucometer 160 H 126 H (74 to 106) mg/dL Calcium 8.3 L (8.4-10.2) mg/dL Total Bilirubin (0.2-1.3) mg/dL AST (14-36) U/L ALT (0-35) U/L Alkaline Phosphatase (38-126) U/L Creatine Kinase (30-135) U/L Troponin I (0.000-0.034) ng/mL NT-Pro-B Natriuret Pep (<300) pg/mL Serum Total Protein (6.3-8.2) g/dL Albumin (3.5-5.0) g/dL Procalcitonin (0.030-0.080) ng/mL Radiology Exams: Radiology Procedures Category Date Time Status CHEST 1 VIEW (PORTABLE) Stat Exams 12/06/22 12:14 Completed ECHO W/2D AND DOPPLER [US] Routine Exams 12/07/22 18:27 Taken Assessment/Plan (1) HTN (hypertension) Current Visit: No Status: Chronic Qualifiers: Hypertension type: essential hypertension Qualified Code(s): I10 - Essential (primary) hypertension Assessment & Plan: 81-year-old woman with a history of hypertension, DM 2, CKD 3, lupus, Sjogren's, sick sinus syndrome, and peripheral neuropathy, who presents from pain medicine clinic with hypertensive urgency, associated with evidence of congestive heart failure and very transient chest pain. ## Hypertensive urgency patient has history of very difficult to control hypertension. Recently had adjustments to her blood pressure medication secondary to worsening of her renal function, and this has apparently led to poorly controlled blood pressures. Some fluid tension headache, but no evidence of endorgan damage. Blood pressures were very difficult to control overnight, requiring increased dosing of Coreg and frequent use of high-dose PRN hydralazine. Some improvement initially, but still elevated. Increased Coreg to 25 BID Start scheduled hydralazine 100 mg q.8 hours Start PRN clonidine 0.1 mg PRN SBP greater than 160 Continue prior home spironolactone 25 BID, losartan 50 daily, although we will need to monitor carefully given worsening renal function today Continue titrating for better blood pressure control Consulting her nephrology group here for further assistance ## Congestive heart failure suspected diastolic heart failure secondary to longstanding hypertension. Patient was on furosemide previously, but this was stopped because of acute kidney injury. Now acutely worsening in the setting of high afterload from severely elevated blood pressures. Patient follows with airborne sensor specialist Dr. Salomon. Had some good urine output overnight, but rising creatinine. Decrease furosemide to 40 mg p.o. daily Continue afterload control with blood pressure control as above Pending echocardiogram ## CKD stage III. It appears her creatinine has improved, from peak of 2.1 in August to 1.2 on admission. Today up slightly to 1.6. I suspect this is related to her Lasix, reinitiation of losartan, and severe hypertension. Decreasing furosemide as above Continue losartan as above, but may need to decrease. ## Type 2 diabetes only requiring metformin at home. Discontinue metformin due to worsening renal function Continue low-dose sliding scale insulin ## Chest pain atypical, lasting only a few seconds, in the setting of severe hypertension. Serial troponins are all below the lower limit of normal. ## Recurrent falls unclear if this is actually associated with her hypertension, although it is contemporaneous. PT evaluate and treat ## Right middle lobe atelectasis differential diagnosis includes pneumonia, but patient has no fever, no cough, no leukocytosis, and her procalcitonin is very low. No plans for evaluation or coverage for pneumonia and less patient develops symptoms CODE STATUS: Full code Prophylaxis: Start heparin TID Entirety of encounter took place via telemedicine. Patient consented to telemedicine. Code(s): I10 - ESSENTIAL (PRIMARY) HYPERTENSION (2) CHF (congestive heart failure) Current Visit: Yes Status: Acute Code(s): I50.9 - HEART FAILURE, UNSPECIFIED (3) CKD (chronic kidney disease) stage 3, GFR 30-59 ml/min Current Visit: Yes Status: Acute Code(s): N18.30 - CHRONIC KIDNEY DISEASE, STAGE 3 UNSPECIFIED (4) Chest discomfort Current Visit: Yes Status: Acute Code(s): R07.89 - OTHER CHEST PAIN Telemedicine Encounter - Telemedicine Encounter Telemedicine Encounter: The entirety of this encounter was performed via Telemedicine"
[2022-12-07] MEDS: Apresoline 25 MG TABLET PO SCH ×2 (13:37→22:53)
[2022-12-07] MEDS: HEPARIN 5000 UNITS/0.5 ML (HIGH RISK MED) SQ SCH ×2 (14:19→22:52)
[2022-12-07] MEDS: NORCO 5/325 MG PO PRN (14:30)
[2022-12-07] MEDS ORDERED: Coreg 3.125 MG PO ONE (16:04)
[2022-12-07] MEDS ORDERED: Cozaar 50 MG PO ONE (17:50)
[2022-12-07] MEDS: Zocor 10MG PO SCH (22:54)
[2022-12-08 05:12] LABS: Hematocrit 33.2 % (35-47); Hemoglobin 10.4 g/dL (12.0-16.0); Mean Cell Volume 97.1 fL (78-100); Mean Corpuscular Hemoglobin 30.4 pg (26-32); Mean Corpuscular Hgb Concent. 31.3 g/dL (32-36); Mean Platelet Volume 9.7 fL (7.5-11.0); Platelet Count 124 x10^3/uL (150-450); Red Blood Count 3.42 x10^6/uL (4.1-5.4); Red Cell Distribution Width 13.8 % (11.5-14.0); White Blood Count 6.1 x10^3/uL (4.0-10.5)
[2022-12-08 05:41] LABS: ANION GAP 14.7 MEQ/L (5-15); Calcium 7.8 mg/dL (8.4-10.2); Creatinine 1 2.61 mg/dL (0.52-1.04); EST GLOMERULAR FILTRATION RATE 18.8 ML/MIN; Potassium 3.9 mmol/L (3.5-5.1)
[2022-12-08] MEDS: Apresoline 25 MG TABLET PO SCH ×3 (06:33→21:07)
[2022-12-08] MEDS: HEPARIN 5000 UNITS/0.5 ML (HIGH RISK MED) SQ SCH ×3 (06:33→21:08)
[2022-12-08] MEDS: Vitamin B-12 500 MCG PO SCH (09:45)
[2022-12-08] MEDS: NORVASC 5 MG PO SCH (09:45)
[2022-12-08] MEDS: Klor Con PO SCH ×2 (09:45→21:08)
[2022-12-08] MEDS: NEURONTIN PO SCH ×4 (09:45→21:08)
[2022-12-08] MEDS: ECOTRIN 81 MG PO SCH (09:46)
[2022-12-08] MEDS: COREG 12.5 MG PO SCH ×2 (09:46→21:07)
[2022-12-08] MEDS: FOLATE 1 MG PO SCH (09:46)
[2022-12-08] MEDS: Imdur 60MG PO SCH (09:48)
[2022-12-08] MEDS: NORCO 5/325 MG PO PRN ×2 (13:02→21:08)
--- NOTE | 2022-12-08 14:08 | PCM.NOTE ---
Date and Time: 12/08/22 5621 Subjective Assessment: No acute events overnight. Her blood pressure has been much better controlled since late last night. She "feels a whole lot better". Denies any further headache, and has no nausea or dyspnea. Her leg edema has also almost completely resolved. She has been able to walk around the room without difficulty, using a rolling walker. - Review of Systems Constitutional: No Fever, No Chills, No Malaise Eyes: No Eye Pain, No Photophobia Respiratory: No Cough, No Short Of Breath, No Wheezing Cardiac: No Chest Pain, No Edema Abdominal/Gastrointestinal: No Abdominal Pain, No Nausea, No Vomiting Neurological: No Dizziness, No Focal Weakness, No Headache, No Parasthesia All Other Systems: Reviewed and Negative Objective Exam General Appearance: no apparent distress Neurologic Exam: alert, oriented x 3, No normal mood/affect Eye Exam: eyes nml inspection Respiratory Exam: normal breath sounds, No respiratory distress, No accessory muscle use Cardiovascular Exam: regular rate/rhythm, normal heart sounds, No murmur, No edema Gastrointestinal/Abdomen Exam: soft, No tenderness, No distention OBJECTIVE DATA Vital Signs: Vital Signs - 24 hr Temp Pulse Resp BP Pulse Ox 12/08/22 11:22 98.0 F 62 16 123/58 93 L 12/08/22 07:25 98.2 F 62 15 144/65 94 L 12/08/22 04:00 97.8 F 78 18 143/65 96 12/07/22 23:32 97.5 F 68 20 169/74 95 12/07/22 20:00 97.8 F 92 H 18 159/68 96 12/07/22 17:00 98.4 F 69 16 146/65 92 L Pain Assessment - Last Documented Pain Intensity 8 Pain Scale Used 0-10 Pain Scale Intake and Output: Intake & Output 12/06/22 12/07/22 12/08/22 12/09/22 11:59 11:59 11:59 11:59 Intake Total 400 660 Balance 400 660 Weight 72.575 kg 72.575 kg Lab Results: Lab Results-Last 24 Hours 12/07/22 12/07/22 12/07/22 Range/Units 05:00 16:36 21:18 WBC (4.0-10.5) x10^3/uL RBC (4.1-5.4) x10^6/uL Hgb (12.0-16.0) g/dL Hct (35-47) % MCV (78-100) fL MCH (26-32) pg MCHC (32-36) g/dL RDW (11.5-14.0) % Plt Count (150-450) x10^3/uL MPV (7.5-11.0) fL Sodium (137-145) mmol/L Potassium (3.5-5.1) mmol/L Chloride (98-107) mmol/L Carbon Dioxide (22-30) mmol/L Anion Gap (5-15) MEQ/L BUN (7-17) mg/dL Creatinine (0.52-1.04) mg/dL Estimated GFR ML/MIN Glucose (74-106) mg/dL POC Glucometer 138 H 121 H (74 to 106) mg/dL Hemoglobin A1c 5.61 (4.5-6.0) % Calcium (8.4-10.2) mg/dL 12/08/22 12/08/22 12/08/22 Range/Units 04:59 04:59 06:30 WBC 6.1 (4.0-10.5) x10^3/uL RBC 3.42 L (4.1-5.4) x10^6/uL Hgb 10.4 L (12.0-16.0) g/dL Hct 33.2 L (35-47) % MCV 97.1 (78-100) fL MCH 30.4 (26-32) pg MCHC 31.3 L (32-36) g/dL RDW 13.8 (11.5-14.0) % Plt Count 124 L (150-450) x10^3/uL MPV 9.7 (7.5-11.0) fL Sodium 134 L (137-145) mmol/L Potassium 3.9 (3.5-5.1) mmol/L Chloride 101 (98-107) mmol/L Carbon Dioxide 22 (22-30) mmol/L Anion Gap 14.7 (5-15) MEQ/L BUN 38 H (7-17) mg/dL Creatinine 2.61 H (0.52-1.04) mg/dL Estimated GFR 18.8 ML/MIN Glucose 130 H (74-106) mg/dL POC Glucometer 136 H (74 to 106) mg/dL Hemoglobin A1c (4.5-6.0) % Calcium 7.8 L (8.4-10.2) mg/dL 12/08/22 Range/Units 11:11 WBC (4.0-10.5) x10^3/uL RBC (4.1-5.4) x10^6/uL Hgb (12.0-16.0) g/dL Hct (35-47) % MCV (78-100) fL MCH (26-32) pg MCHC (32-36) g/dL RDW (11.5-14.0) % Plt Count (150-450) x10^3/uL MPV (7.5-11.0) fL Sodium (137-145) mmol/L Potassium (3.5-5.1) mmol/L Chloride (98-107) mmol/L Carbon Dioxide (22-30) mmol/L Anion Gap (5-15) MEQ/L BUN (7-17) mg/dL Creatinine (0.52-1.04) mg/dL Estimated GFR ML/MIN Glucose (74-106) mg/dL POC Glucometer 228 H (74 to 106) mg/dL Hemoglobin A1c (4.5-6.0) % Calcium (8.4-10.2) mg/dL Radiology Exams: Radiology Procedures Category Date Time Status ECHO W/2D AND DOPPLER [US] Routine Exams 12/07/22 18:27 Taken Multi-Disciplinary Progress Notes: Multi-Disciplinary Progress Notes 12/08/22 09:27 Case Management Note by Maki Shah S/W PATIENT AND - SHE CONTINUES TO PLAN TO DC HOME AT TIME OF DC. SHE HAS WORKED WITH PHYSICAL THERAPY AND WOULD LIKE TO DO OTPT PT AFTER DC. PATIENT ALREADY HAS AN APPOINTMENT ON CHART-IF DR. MOELLER APPROVES PLAN. NO OTHER NEEDS AT TIME OF DC Initialized on 12/08/22 09:27 - END OF NOTE Assessment/Plan (1) HTN (hypertension) Current Visit: No Status: Chronic Qualifiers: Hypertension type: essential hypertension Qualified Code(s): I10 - Essential (primary) hypertension Assessment & Plan: 81-year-old woman with a history of hypertension, DM 2, CKD 3, lupus, Sjogren's, sick sinus syndrome, and peripheral neuropathy, who presents from pain medicine clinic with hypertensive urgency, associated with evidence of congestive heart failure and very transient chest pain. ## Hypertensive urgency patient has history of very difficult to control hypertension, and likely admitted with very elevated BP because of recent adjustments of her medications for worsening renal function. During the day yesterday, her blood pressure became quickly controlled. She dropped a little more than would be desired, but that was with without the intervention of new medications. Eventually settled around 140s over 80s. However, now having worsening BETTY. Continue Coreg 25 BID hydralazine 100 q.8 hours, amlodipine 10 mg daily DC losartan 50, spironolactone 25 BID, and Lasix due to worsening renal function Continue PRN clonidine 0.1 mg PRN SBP greater than [address] Lopez consulted and reviewing the case ##BETTY on CKD stage III creatinine had prior peak of 2.1, and was down to 1.2 on admission. Has now risen to 2.6. Partially this is due to her Lasix and continuation of losartan and spironolactone, and partially due to a direct effect of the severe hypertension. Stop furosemide, losartan, and spironolactone Check urine sodium, creatinine, and urea nitrogen (patient has been on diureti cs) Nephrology Dr. Lopez consulted ## Congestive heart failure suspected diastolic heart failure secondary to longstanding hypertension. Edema improved after getting 2 doses of furosemide. Stop furosemide due to BETTY Continue afterload control with blood pressure control as above Pending echocardiogram ## Type 2 diabetes only requiring metformin at home. Glucose levels generally controlled here. Metformin stopped due to worsening renal function. Continue low-dose sliding scale insulin ## Chest pain atypical, lasting only a few seconds, in the setting of severe hypertension. Serial troponins are all below the lower limit of normal. ## Recurrent falls unclear if this is actually associated with her hypertension, although it is contemporaneous. PT evaluate and treat ## Right middle lobe atelectasis differential diagnosis includes pneumonia, but patient has no fever, no cough, no leukocytosis, and her procalcitonin is very low. No plans for evaluation or coverage for pneumonia and less patient develops symptoms CODE STATUS: Full code Prophylaxis: Start heparin TID Entirety of encounter took place via telemedicine. Patient consented to telemedicine. Code(s): I10 - ESSENTIAL (PRIMARY) HYPERTENSION (2) CHF (congestive heart failure) Current Visit: Yes Status: Acute Code(s): I50.9 - HEART FAILURE, UNSPECIFIED (3) CKD (chronic kidney disease) stage 3, GFR 30-59 ml/min Current Visit: Yes Status: Acute Code(s): N18.30 - CHRONIC KIDNEY DISEASE, STAGE 3 UNSPECIFIED (4) Chest discomfort Current Visit: Yes Status: Acute Code(s): R07.89 - OTHER CHEST PAIN Telemedicine Encounter - Telemedicine Encounter Telemedicine Encounter: The entirety of this encounter was performed via Telemedicine"
[2022-12-08] MEDS: Zocor 10MG PO SCH (21:08)
[2022-12-09] MEDS: HEPARIN 5000 UNITS/0.5 ML (HIGH RISK MED) SQ SCH ×3 (05:59→21:07)
[2022-12-09] MEDS: Apresoline 25 MG TABLET PO SCH ×3 (06:13→21:07)
[2022-12-09 06:16] LABS: Hematocrit 31.1 % (35-47); Hemoglobin 10.4 g/dL (12.0-16.0); Mean Cell Volume 95.1 fL (78-100); Mean Corpuscular Hemoglobin 31.8 pg (26-32); Mean Corpuscular Hgb Concent. 33.4 g/dL (32-36); Mean Platelet Volume 9.8 fL (7.5-11.0); Platelet Count 118 x10^3/uL (150-450); Red Blood Count 3.27 x10^6/uL (4.1-5.4); Red Cell Distribution Width 13.7 % (11.5-14.0)
[2022-12-09 06:53] LABS: ANION GAP 16.2 MEQ/L (5-15); Calcium 7.6 mg/dL (8.4-10.2); Creatinine 1 2.9 mg/dL (0.52-1.04); EST GLOMERULAR FILTRATION RATE 16.6 ML/MIN; Potassium 4.2 mmol/L (3.5-5.1)
[2022-12-09] MEDS: FOLATE 1 MG PO SCH (09:24)
[2022-12-09] MEDS: COREG 12.5 MG PO SCH ×2 (09:25→21:07)
[2022-12-09] MEDS: NEURONTIN PO SCH ×4 (09:26→21:06)
[2022-12-09] MEDS: ECOTRIN 81 MG PO SCH (09:26)
[2022-12-09] MEDS: Klor Con PO SCH ×2 (09:27→21:06)
[2022-12-09] MEDS: Imdur 60MG PO SCH (09:27)
[2022-12-09] MEDS: NORVASC 5 MG PO SCH (09:28)
[2022-12-09] MEDS: Vitamin B-12 500 MCG PO SCH (09:29)
--- NOTE | 2022-12-09 10:20 | PCM.DS ---
Discharge Summary Date of Admission: 12/06/22 18:18 Date of Discharge: 12/09/2022 Admitting Physician: DEBBIE MOELLER MD Consults: Consults on Case 12/07/22 09:41 Consult Nephrology ROUTINE Primary Care Provider: KATHIE HODGE Allergies Allergies No Known Drug Allergies Allergy (Verified 12/06/22 11:59) Hospital Summary - Hospital Course Hospital Course: 89-year-old woman with history of paroxysmal atrial tachycardia and hypertension, who was admitted with initial complaints of intermittent persistent chest pain. She also noted that she been having some episodes of palpitations for a few days. She had been on the medication previously, but has been stopped because of side effects, although she was unable to identify what those were. Patient was admitted for observation. EKG and serial troponins were negative for ischemic changes. Her rhythm was baseline sinus bradycardia with occasional PACs. I spoke with patient's party demonstrator Dr. Salomon, and reviewed patient's prior Holter monitor, and show that patient has a history of paroxysmal atrial tachycardia. In discussion with Dr. Salomon, decided to stop patient's metoprolol because of her baseline bradycardia. Started patient on low-dose amiodarone 100 mg daily, as this was the least likely to cause her bradycardia while still preventing these episodes of A. tach. Patient also complained of frequent urination overnight. Her PCP Dr. Hodge was available, and in consultation, changed her chlorthalidone to Lasix 20 mg daily. Patient was able to ambulate around the room without difficulty, although was still complaining of intermittent generalized weakness. She will follow-up with Dr. Hodge next week, and will arrange follow-up with Dr. Salomon to see if we are adequately controlling her heart rate. Entirety of encounter took place via telemedicine, to which patient consented. Greater than 30 minutes were spent arranging patient discharge. - Vitals & Intake/Output Vital Signs: Vital Signs Temperature 97.1 F 12/09/22 06:14 Pulse Rate 64 12/09/22 06:14 Respiratory Rate 18 12/09/22 03:58 Blood Pressure 138/61 12/09/22 06:14 O2 Sat by Pulse Oximetry 94 L 12/09/22 06:14 Intake & Output: Intake & Output 12/06/22 12/07/22 12/08/22 12/09/22 11:59 11:59 11:59 11:59 Intake Total 400 660 960 Balance 400 660 960 Weight 72.575 kg 72.575 kg - Lab Result Diagrams: 12/09/22 05:45 12/09/22 05:45 Lab Results-Last 24 Hrs: Lab Results-Last 24 Hours 12/08/22 12/08/22 12/08/22 Range/Units 11:11 14:53 16:48 WBC (4.0-10.5) x10^3/uL RBC (4.1-5.4) x10^6/uL Hgb (12.0-16.0) g/dL Hct (35-47) % MCV (78-100) fL MCH (26-32) pg MCHC (32-36) g/dL RDW (11.5-14.0) % Plt Count (150-450) x10^3/uL MPV (7.5-11.0) fL Sodium (137-145) mmol/L Potassium (3.5-5.1) mmol/L Chloride (98-107) mmol/L Carbon Dioxide (22-30) mmol/L Anion Gap (5-15) MEQ/L BUN (7-17) mg/dL Creatinine (0.52-1.04) mg/dL Estimated GFR ML/MIN Glucose (74-106) mg/dL POC Glucometer 228 H 116 H 138 H (74 to 106) mg/dL Calcium (8.4-10.2) mg/dL 12/08/22 12/09/22 12/09/22 Range/Units 20:23 05:45 05:45 WBC 5.0 (4.0-10.5) x10^3/uL RBC 3.27 L (4.1-5.4) x10^6/uL Hgb 10.4 L (12.0-16.0) g/dL Hct 31.1 L (35-47) % MCV 95.1 (78-100) fL MCH 31.8 (26-32) pg MCHC 33.4 (32-36) g/dL RDW 13.7 (11.5-14.0) % Plt Count 118 L (150-450) x10^3/uL MPV 9.8 (7.5-11.0) fL Sodium 130 L (137-145) mmol/L Potassium 4.2 (3.5-5.1) mmol/L Chloride 99 (98-107) mmol/L Carbon Dioxide 20 L (22-30) mmol/L Anion Gap 16.2 H (5-15) MEQ/L BUN 47 H (7-17) mg/dL Creatinine 2.90 H (0.52-1.04) mg/dL Estimated GFR 16.6 ML/MIN Glucose 139 H (74-106) mg/dL POC Glucometer 118 H (74 to 106) mg/dL Calcium 7.6 L (8.4-10.2) mg/dL 12/09/22 Range/Units 07:24 WBC (4.0-10.5) x10^3/uL RBC (4.1-5.4) x10^6/uL Hgb (12.0-16.0) g/dL Hct (35-47) % MCV (78-100) fL MCH (26-32) pg MCHC (32-36) g/dL RDW (11.5-14.0) % Plt Count (150-450) x10^3/uL MPV (7.5-11.0) fL Sodium (137-145) mmol/L Potassium (3.5-5.1) mmol/L Chloride (98-107) mmol/L Carbon Dioxide (22-30) mmol/L Anion Gap (5-15) MEQ/L BUN (7-17) mg/dL Creatinine (0.52-1.04) mg/dL Estimated GFR ML/MIN Glucose (74-106) mg/dL POC Glucometer 144 H (74 to 106) mg/dL Calcium (8.4-10.2) mg/dL Micro Results-Entire Visit: Accuchecks Date 12/09/22 Date 12/08/22 Date 12/08/22 Date 12/08/22 Time 07:26 Time 21:00 Time 15:30 Time 11:21 - Radiology Exams Ordered Rad Exams-Entire Visit: Radiology Procedures Category Date Time Status ECHO W/2D AND DOPPLER [US] Routine Exams 12/07/22 18:27 Taken - Procedures and Test Procedures and Tests throughout Hospitalization: Therapy Orders & Screens 12/06/22 18:10 PT Screen per Nursing Assess ONCE Comment: Protocol Order Physician Instructions: Greater than 3 points order PT Admission Screenin Reason For Exam: Triggered on Admission Diagnosis: HTN Open Wound/Cellutlitis/Pressure Ulcers: No Acute Fx/ORIF/Change in wt bearing status: Yes Severe MUSCULOSKELETAL pain: No ADL Dysfunction: No Acute CVA w/Hemiparesis/Hemiplegia: No Decreased Functional Mobility/Strength: Yes Sprain/Strain: No Acute Post-op Mobility Dysfunction: No Total Points: 6 12/06/22 18:18 PT Eval & Treat (MD Order) ONCE Reason for Eval:: Recurrent falls Diagnosis: HTN 12/07/22 08:00 OT Screen per Nursing Assess ONCE Comment: Protocol Order Physician Instructions: Greater than 3 points order OT Admission Screening Reason For Exam: Triggered on Admission Diagnosis: HTN Open Wound/Cellutlitis/Pressure Ulcers: No Acute Fx/ORIF/Change in wt bearing status: Yes Severe MUSCULOSKELETAL pain: No ADL Dysfunction: No Acute CVA w/Hemiparesis/Hemiplegia: No Decreased Functional Mobility/Strength: Yes Sprain/Strain: No Acute Post-op Mobility Dysfunction: No Total Points: 6 Final Diagnosis/Problem List - Final Discharge Diagnosis/Problem (1) HTN (hypertension) Current Visit: No Status: Chronic Code(s): I10 - ESSENTIAL (PRIMARY) HYPERTENSION (2) CHF (congestive heart failure) Current Visit: Yes Status: Acute Code(s): I50.9 - HEART FAILURE, UNSPECIFIED (3) CKD (chronic kidney disease) stage 3, GFR 30-59 ml/min Current Visit: Yes Status: Acute Code(s): N18.30 - CHRONIC KIDNEY DISEASE, STAGE 3 UNSPECIFIED (4) Chest discomfort Current Visit: Yes Status: Acute Code(s): R07.89 - OTHER CHEST PAIN Telemedicine Encounter - Telemedicine Encounter Telemedicine Encounter: The entirety of this encounter was performed via Telemedicine" - Discharge Disposition: Home, Self-Care Condition: Stable Prescriptions: No Action Atorvastatin Calcium [Lipitor 20MG Tablet] 10 mg PO HS Carvedilol [Coreg ] 6.25 mg PO BID Gabapentin [Neurontin] 300 mg PO QID Potassium Chloride 10 meq PO BID Metformin HCl Xr 500 mg [Glucophage XR 500 MG] 500 mg PO BID Isosorbide Mononitrate [Isosorbide Mononitrate ER] 60 mg PO DAILY Losartan Potassium 50 mg [Cozaar 50 MG] 50 mg PO DAILY Cyanocobalamin 500 Mcg [Vitamin B-12 500 MCG] 500 mcg PO DAILY Aspirin EC 81 mg [Ecotrin 81 mg] 81 mg PO DAILY Folic Acid 1 mg [Folate 1 mg] 2 mg PO DAILY Spironolactone 25 mg [Aldactone 25 MG] 25 mg PO BID Outpatient Orders: Physical Therapy Eval & Treat Facility: [facility], Location: PHYSICAL THERAPY Additional Instructions: First physical therapy appointment is 12/14/2022 at 10am Follow up with: KATHIE HODGE MD [Primary Care Provider] -
--- NOTE | 2022-12-09 13:02 | PCM.NOTE ---
Date and Time: 12/09/22 1257 Subjective Assessment: No acute events overnight. Yesterday, patient's nephrology had recommended her to transfer to [place], but patient declined. She is willing to visit today included. However, spoke with patient's sports administrator, who is fine with patient being monitored here now that creatinine levels are starting to level off. Patient feels well, with resolution of prior headache. - Review of Systems Respiratory: No Short Of Breath Cardiac: No Chest Pain Neurological: No Headache All Other Systems: Reviewed and Negative Objective Exam General Appearance: no apparent distress Neurologic Exam: alert, oriented x 3 Respiratory Exam: normal breath sounds, No respiratory distress Cardiovascular Exam: regular rate/rhythm, No murmur, No edema Gastrointestinal/Abdomen Exam: soft, No tenderness, No distention OBJECTIVE DATA Vital Signs: Vital Signs - 24 hr Temp Pulse Resp BP Pulse Ox 12/09/22 10:00 98.0 F 63 16 124/58 95 12/09/22 06:14 97.1 F 64 138/61 94 L 12/09/22 03:58 98.2 F 63 18 112/53 94 L 12/09/22 00:00 96.8 F 73 17 116/57 92 L 12/08/22 19:50 98.4 F 70 18 124/59 96 12/08/22 15:25 98.0 F 74 16 125/60 95 Pain Assessment - Last Documented Pain Intensity 0 Pain Scale Used 0-10 Pain Scale Intake and Output: Intake & Output 12/07/22 12/08/22 12/09/22 12/10/22 11:59 11:59 11:59 11:59 Intake Total 400 660 960 Balance 400 660 960 Weight 72.575 kg Lab Results: Lab Results-Last 24 Hours 12/08/22 12/08/22 12/08/22 Range/Units 14:53 16:48 20:23 WBC (4.0-10.5) x10^3/uL RBC (4.1-5.4) x10^6/uL Hgb (12.0-16.0) g/dL Hct (35-47) % MCV (78-100) fL MCH (26-32) pg MCHC (32-36) g/dL RDW (11.5-14.0) % Plt Count (150-450) x10^3/uL MPV (7.5-11.0) fL Sodium (137-145) mmol/L Potassium (3.5-5.1) mmol/L Chloride (98-107) mmol/L Carbon Dioxide (22-30) mmol/L Anion Gap (5-15) MEQ/L BUN (7-17) mg/dL Creatinine (0.52-1.04) mg/dL Estimated GFR ML/MIN Glucose (74-106) mg/dL POC Glucometer 116 H 138 H 118 H (74 to 106) mg/dL Calcium (8.4-10.2) mg/dL 12/09/22 12/09/22 12/09/22 Range/Units 05:45 05:45 07:24 WBC 5.0 (4.0-10.5) x10^3/uL RBC 3.27 L (4.1-5.4) x10^6/uL Hgb 10.4 L (12.0-16.0) g/dL Hct 31.1 L (35-47) % MCV 95.1 (78-100) fL MCH 31.8 (26-32) pg MCHC 33.4 (32-36) g/dL RDW 13.7 (11.5-14.0) % Plt Count 118 L (150-450) x10^3/uL MPV 9.8 (7.5-11.0) fL Sodium 130 L (137-145) mmol/L Potassium 4.2 (3.5-5.1) mmol/L Chloride 99 (98-107) mmol/L Carbon Dioxide 20 L (22-30) mmol/L Anion Gap 16.2 H (5-15) MEQ/L BUN 47 H (7-17) mg/dL Creatinine 2.90 H (0.52-1.04) mg/dL Estimated GFR 16.6 ML/MIN Glucose 139 H (74-106) mg/dL POC Glucometer 144 H (74 to 106) mg/dL Calcium 7.6 L (8.4-10.2) mg/dL 12/09/22 Range/Units 11:23 WBC (4.0-10.5) x10^3/uL RBC (4.1-5.4) x10^6/uL Hgb (12.0-16.0) g/dL Hct (35-47) % MCV (78-100) fL MCH (26-32) pg MCHC (32-36) g/dL RDW (11.5-14.0) % Plt Count (150-450) x10^3/uL MPV (7.5-11.0) fL Sodium (137-145) mmol/L Potassium (3.5-5.1) mmol/L Chloride (98-107) mmol/L Carbon Dioxide (22-30) mmol/L Anion Gap (5-15) MEQ/L BUN (7-17) mg/dL Creatinine (0.52-1.04) mg/dL Estimated GFR ML/MIN Glucose (74-106) mg/dL POC Glucometer 154 H (74 to 106) mg/dL Calcium (8.4-10.2) mg/dL Radiology Exams: Radiology Procedures Category Date Time Status ECHO W/2D AND DOPPLER [US] Routine Exams 12/07/22 18:27 Taken Assessment/Plan (1) HTN (hypertension) Current Visit: No Status: Chronic Qualifiers: Hypertension type: essential hypertension Qualified Code(s): I10 - Essential (primary) hypertension Assessment & Plan: 81-year-old woman with a history of hypertension, DM 2, CKD 3, lupus, Sjogren's, sick sinus syndrome, and peripheral neuropathy, who presents from pain medicine clinic with hypertensive urgency, associated with evidence of congestive heart failure and very transient chest pain. ## Hypertensive urgency patient has history of very difficult to control hypertension, and likely admitted with very elevated BP because of recent adjustments of her medications for worsening renal function. Initially difficult to control, but BP now controlled despite stopping all nephrotoxic medications. Has not been receiving all of the doses of hydralazine due to confusion with orders. but BP was down to 110s/70s overnight without it. Continue Coreg 25 BID, amlodipine 10 mg daily - decrease hydralazine to 25 TID Continue PRN clonidine 0.1 mg PRN SBP greater than 160 Ncontinue holding losartan, lasix. ##BETTY on CKD stage III creatinine had prior peak of 2.1, and was down to 1.2 on admission. Has now risen to 2.6, then 2.9 today. Partially this is due to her Lasix and continuation of losartan and spironolactone, and partially due to a direct effect of the severe hypertension. Nephrology Dr. Lopez consulted, and expects levels to start to improve. Would prefer to keep her in [place] now and no longer wants to transfer to [place]. continue holding furosemide, losartan, and spironolactone pending urine sodium, creatinine, and urea nitrogen (patient has been on diuretics) ## Congestive heart failure suspected diastolic heart failure secondary to longstanding hypertension. Edema improved after getting 2 doses of furosemide. continue to hold furosemide due to BETTY Continue afterload control with blood pressure control as above Pending echocardiogram (done but not yet read) ## Type 2 diabetes only requiring metformin at home. Glucose levels generally controlled here. Metformin stopped due to worsening renal function. Glc levels controlled on sliding scale. Continue low-dose sliding scale insulin ## Chest pain atypical, lasting only a few seconds, in the setting of severe hypertension. Serial troponins are all below the lower limit of normal. ## Recurrent falls unclear if this is actually associated with her hypertension, although it is contemporaneous. PT evaluation ## Right middle lobe atelectasis differential diagnosis includes pneumonia, but patient has no fever, no cough, no leukocytosis, and her procalcitonin is very low. No plans for evaluation or coverage for pneumonia and less patient develops symptoms CODE STATUS: Full code Prophylaxis: Start heparin TID Entirety of encounter took place via telemedicine. Patient consented to telemedicine. Code(s): I10 - ESSENTIAL (PRIMARY) HYPERTENSION (2) CHF (congestive heart failure) Current Visit: Yes Status: Acute Code(s): I50.9 - HEART FAILURE, UNSPECIFIED (3) CKD (chronic kidney disease) stage 3, GFR 30-59 ml/min Current Visit: Yes Status: Acute Code(s): N18.30 - CHRONIC KIDNEY DISEASE, STAGE 3 UNSPECIFIED (4) Chest discomfort Current Visit: Yes Status: Acute Code(s): R07.89 - OTHER CHEST PAIN Telemedicine Encounter - Telemedicine Encounter Telemedicine Encounter: The entirety of this encounter was performed via Telemedicine"
[2022-12-09] MEDS: NORCO 5/325 MG PO PRN (15:24)
[2022-12-09 15:55] LABS: CREATININE,URINE RANDOM 68.2 MG/DL
[2022-12-09] MEDS: Miralax Powder 17GM PACKET PO PRN (18:10)
[2022-12-09] MEDS: Zocor 10MG PO SCH (21:07)
[2022-12-10] MEDS: HEPARIN 5000 UNITS/0.5 ML (HIGH RISK MED) SQ SCH ×2 (05:13→14:23)
[2022-12-10] MEDS: Apresoline 25 MG TABLET PO SCH (05:13)
[2022-12-10] MEDS: Miralax Powder 17GM PACKET PO PRN (05:24)
[2022-12-10 05:56] LABS: Hematocrit 31.2 % (35-47); Hemoglobin 10.6 g/dL (12.0-16.0); Mean Corpuscular Hemoglobin 31.9 pg (26-32); Platelet Count 113 x10^3/uL (150-450); Red Blood Count 3.32 x10^6/uL (4.1-5.4); Red Cell Distribution Width 13.4 % (11.5-14.0); White Blood Count 4.5 x10^3/uL (4.0-10.5)
[2022-12-10 06:26] LABS: ANION GAP 15.2 MEQ/L (5-15); Calcium 7.9 mg/dL (8.4-10.2); Creatinine 1 1.95 mg/dL (0.52-1.04); EST GLOMERULAR FILTRATION RATE 26.3 ML/MIN; Potassium 4.7 mmol/L (3.5-5.1)
[2022-12-10] MEDS: FOLATE 1 MG PO SCH (08:34)
[2022-12-10] MEDS: COREG 12.5 MG PO SCH (08:34)
[2022-12-10] MEDS: NEURONTIN PO SCH ×2 (08:34→13:53)
[2022-12-10] MEDS: NORVASC 5 MG PO SCH (08:34)
[2022-12-10] MEDS: Klor Con PO SCH (08:34)
[2022-12-10] MEDS: ECOTRIN 81 MG PO SCH (08:34)
[2022-12-10] MEDS: Imdur 60MG PO SCH (08:35)
[2022-12-10] MEDS: Vitamin B-12 500 MCG PO SCH (08:35)
[2022-12-10] MEDS ORDERED: Dulcolax 10 MG SUPP PR PRN (10:23)
--- NOTE | 2022-12-10 12:21 | PCM.DS ---
Discharge Summary Date of Admission: 12/06/22 18:18 Date of Discharge: 12/10/2022 Admitting Physician: DEBBIE MOELLER MD Consults: Consults on Case 12/07/22 09:41 Consult Nephrology ROUTINE Primary Care Provider: KATHIE HODGE Allergies Allergies No Known Drug Allergies Allergy (Verified 12/06/22 11:59) Hospital Summary - Hospital Course Hospital Course: 81-year-old woman with history of hypertension, CKD stage III, DM2, lupus, Sjogren's, sick sinus syndrome, and peripheral neuropathy, who was admitted from pain clinic with hypertensive urgency with severe headahce, nausea, vomiting, and brief chest pain. Her BP was in the 210s/90s, and had some mild edema suggesting acute (on chronic?) diastolic heart failure. Chest pain was transient and atypical for ACS, and serial troponins and EKG were negative for ischemia. The cause of her rising BP was felt to be due to changes in her medications. She had developed worsening CKD in the past few months, and her tire changer aircraft Dr. Lopez had been decreasing some of her medications, including stopping her Lasix and decreasing her losartan, as well as some other changes the patient could not recall. Her BP started to rise and she was starting back on some medications, but was very uncontrolled leading to admission. She initially required rapid titration of her oral medications, but she was not placed on IV antihypertensive drips because of the lack of end-organ damage. She was also initially given Lasix for her edema. Her BP remained very elevated, and she developed worsening renal function. Her BP was eventually controlled with maximizing her carvedilol dose, adding amlodipine, and briefly adding hydralazine. Her furosemide, losa rtan, and spironolactone were all stopped due to worsening renal function. Her BP was eventually controlled on just amlodipine and carvedilol, and the hydralazine was able to be stopped. Her Cr donavan at first, up to 2.9 at the peak, but was imroving, down to 1.9 at time of discharge. She had complete resolution of her headache, as well as her leg edema and generalized weakness. She had an echocardiogram performed to evaluate for heart failure; it has been sent to her fashion stylist Dr. Mendes's group to read, but has not yet been read. However, suspect patient has diastolic heart failure from her long-standing hypertension. Dr. Lopez was consulted during the stay and was following patient peripherally; he had initially requested patient be transferred to [facility] where he was for closer evaluation when her Cr went from 1.6 to 2.6, but patient declined, wanting to observe longer in [facility]. When her Cr leveled off and started to improve, Dr. Lopez agreed with monitoring locally, and discharging to follow up in clinic with him tomorrow with repeat labs. Patient is also on metformin for diabetes. This was held in the setting of rising Cr, and will be stopped on discharge due to her CKD. She also described recurrent falls prior to admission, improving during stay. Arranged for outpatient PT (see discharge instructions.) Entirety of encounter took place via telemedicine, to which patient consented. Greater than 30 minutes was spent arranging discharge. - Vitals & Intake/Output Vital Signs: Vital Signs Temperature 98.1 F 12/10/22 06:46 Pulse Rate 75 12/10/22 06:46 Respiratory Rate 18 12/10/22 06:46 Blood Pressure 134/60 12/10/22 06:46 O2 Sat by Pulse Oximetry 90 L 12/10/22 06:46 Intake & Output: Intake & Output 12/08/22 12/09/22 12/10/22 12/11/22 11:59 11:59 11:59 11:59 Intake Total 660 960 960 Output Total 300 Balance 660 960 660 - Lab Result Diagrams: 12/10/22 05:35 12/10/22 05:35 Lab Results-Last 24 Hrs: Lab Results-Last 24 Hours 12/08/22 12/09/22 12/09/22 Range/Units 15:46 16:14 20:22 WBC (4.0-10.5) x10^3/uL RBC (4.1-5.4) x10^6/uL Hgb (12.0-16.0) g/dL Hct (35-47) % MCV (78-100) fL MCH (26-32) pg MCHC (32-36) g/dL RDW (11.5-14.0) % Plt Count (150-450) x10^3/uL MPV (7.5-11.0) fL Sodium (137-145) mmol/L Potassium (3.5-5.1) mmol/L Chloride (98-107) mmol/L Carbon Dioxide (22-30) mmol/L Anion Gap (5-15) MEQ/L BUN (7-17) mg/dL Creatinine (0.52-1.04) mg/dL Estimated GFR ML/MIN Glucose (74-106) mg/dL POC Glucometer 155 H 154 H (74 to 106) mg/dL Calcium (8.4-10.2) mg/dL Ur Random Creatinine 68.2 MG/DL Urine Sodium 11 L (30-90) mmol/L 12/10/22 12/10/22 12/10/22 Range/Units 05:35 05:35 06:26 WBC 4.5 (4.0-10.5) x10^3/uL RBC 3.32 L (4.1-5.4) x10^6/uL Hgb 10.6 L (12.0-16.0) g/dL Hct 31.2 L (35-47) % MCV 94.0 (78-100) fL MCH 31.9 (26-32) pg MCHC 34.0 (32-36) g/dL RDW 13.4 (11.5-14.0) % Plt Count 113 L (150-450) x10^3/uL MPV 10.0 (7.5-11.0) fL Sodium 128 L (137-145) mmol/L Potassium 4.7 (3.5-5.1) mmol/L Chloride 97 L (98-107) mmol/L Carbon Dioxide 20 L (22-30) mmol/L Anion Gap 15.2 H (5-15) MEQ/L BUN 48 H (7-17) mg/dL Creatinine 1.95 H (0.52-1.04) mg/dL Estimated GFR 26.3 ML/MIN Glucose 161 H (74-106) mg/dL POC Glucometer 171 H (74 to 106) mg/dL Calcium 7.9 L (8.4-10.2) mg/dL Ur Random Creatinine MG/DL Urine Sodium (30-90) mmol/L 12/10/22 Range/Units 11:55 WBC (4.0-10.5) x10^3/uL RBC (4.1-5.4) x10^6/uL Hgb (12.0-16.0) g/dL Hct (35-47) % MCV (78-100) fL MCH (26-32) pg MCHC (32-36) g/dL RDW (11.5-14.0) % Plt Count (150-450) x10^3/uL MPV (7.5-11.0) fL Sodium (137-145) mmol/L Potassium (3.5-5.1) mmol/L Chloride (98-107) mmol/L Carbon Dioxide (22-30) mmol/L Anion Gap (5-15) MEQ/L BUN (7-17) mg/dL Creatinine (0.52-1.04) mg/dL Estimated GFR ML/MIN Glucose (74-106) mg/dL POC Glucometer 156 H (74 to 106) mg/dL Calcium (8.4-10.2) mg/dL Ur Random Creatinine MG/DL Urine Sodium (30-90) mmol/L Micro Results-Entire Visit: Accuchecks Date 12/10/22 Date 12/09/22 Time 06:46 Time 16:20 - Procedures and Test Procedures and Tests throughout Hospitalization: Therapy Orders & Screens 12/06/22 18:10 PT Screen per Nursing Assess ONCE Comment: Protocol Order Physician Instructions: Greater than 3 points order PT Admission Screenin Reason For Exam: Triggered on Admission Diagnosis: HTN Open Wound/Cellutlitis/Pressure Ulcers: No Acute Fx/ORIF/Change in wt bearing status: Yes Severe MUSCULOSKELETAL pain: No ADL Dysfunction: No Acute CVA w/Hemiparesis/Hemiplegia: No Decreased Functional Mobility/Strength: Yes Sprain/Strain: No Acute Post-op Mobility Dysfunction: No Total Points: 6 12/06/22 18:18 PT Eval & Treat ( Order) ONCE Reason for Eval:: Recurrent falls Diagnosis: HTN 12/07/22 08:00 OT Screen per Nursing Assess ONCE Comment: Protocol Order Physician Instructions: Greater than 3 points order OT Admission Screening Reason For Exam: Triggered on Admission Diagnosis: HTN Open Wound/Cellutlitis/Pressure Ulcers: No Acute Fx/ORIF/Change in wt bearing status: Yes Severe MUSCULOSKELETAL pain: No ADL Dysfunction: No Acute CVA w/Hemiparesis/Hemiplegia: No Decreased Functional Mobility/Strength: Yes Sprain/Strain: No Acute Post-op Mobility Dysfunction: No Total Points: 6 Discharge Exam General Appearance: no apparent distress Neurologic Exam: alert, oriented x 3 Eye Exam: eyes nml inspection Respiratory Exam: normal breath sounds, No accessory muscle use Cardiovascular Exam: regular rate/rhythm, normal heart sounds, No edema Gastrointestinal/Abdomen Exam: soft, No tenderness, No distention Final Diagnosis/Problem List - Final Discharge Diagnosis/Problem (1) HTN (hypertension) Current Visit: No Status: Chronic Code(s): I10 - ESSENTIAL (PRIMARY) HYPERTENSION (2) CHF (congestive heart failure) Current Visit: Yes Status: Acute Code(s): I50.9 - HEART FAILURE, UNSPECIFIED (3) CKD (chronic kidney disease) stage 3, GFR 30-59 ml/min Current Visit: Yes Status: Acute Code(s): N18.30 - CHRONIC KIDNEY DISEASE, STAGE 3 UNSPECIFIED (4) Chest discomfort Current Visit: Yes Status: Acute Code(s): R07.89 - OTHER CHEST PAIN (5) Acute kidney failure Current Visit: Yes Status: Acute (6) Diabetes mellitus Current Visit: No Status: Chronic Code(s): E11.9 - TYPE 2 DIABETES MELLITUS WITHOUT COMPLICATIONS Telemedicine Encounter - Telemedicine Encounter Telemedicine Encounter: The entirety of this encounter was performed via Telemedicine" - Discharge Discharge Date: 12/10/22 Disposition: Home, Self-Care Condition: Stable Prescriptions: New Amlodipine Besylate 10 mg PO DAILY #30 tablet carvediloL [Carvedilol] 25 mg PO BID #60 tablet Continue Atorvastatin Calcium [Lipitor 20MG Tablet] 10 mg PO HS Gabapentin [Neurontin] 300 mg PO QID Potassium Chloride 10 meq PO BID Isosorbide Mononitrate [Isosorbide Mononitrate ER] 60 mg PO DAILY Cyanocobalamin 500 Mcg [Vitamin B-12 500 MCG] 500 mcg PO DAILY Aspirin EC 81 mg [Ecotrin 81 mg] 81 mg PO DAILY Folic Acid 1 mg [Folate 1 mg] 2 mg PO DAILY Discontinued Carvedilol [Coreg ] 6.25 mg PO BID Metformin HCl Xr 500 mg [Glucophage XR 500 MG] 500 mg PO BID Losartan Potassium 50 mg [Cozaar 50 MG] 50 mg PO DAILY Spironolactone 25 mg [Aldactone 25 MG] 25 mg PO BID Outpatient Orders: Physical Therapy Eval & Treat Facility: [facility], Location: PHYSICAL THERAPY Additional Instructions: First physical therapy appointment is 12/14/2022 at 10am Follow up with: BIJU LOPEZ [CONSULTING PHYSICIAN] - 1 Day KATHIE HODGE MD [Primary Care Provider] - 1 Week ALFRED MENDES [CONSULTING PHYSICIAN] - 1 month
[2022-12-10 12:22] VITALS: BP 129/60; PULSE 67; O2SAT 91
== END 2022-12-10 14:20 | disposition home or self-care (01) | DRG 293 ==
LOC: EDSTATUS 11:49 → ED 11:49 → MED SURG 16:24 → OBSVTOIN 18:18
PROVIDERS: ADMIT Internal Medicine; ATTEND Internal Medicine
DX: I13.0 Hypertensive heart and chronic kidney disease with heart failure and stage 1 through stage 4 chronic kidney disease, or unspecified chronic kidney disease (principal); I50.9 Heart failure, unspecified; E11.22 Type 2 diabetes mellitus with diabetic chronic kidney disease; N18.30 Chronic kidney disease, stage 3 unspecified; E11.42 Type 2 diabetes mellitus with diabetic polyneuropathy; R07.89 Other chest pain; M35.00 Sjogren syndrome, unspecified; R60.0 Localized edema; Z79.899 Other long term (current) drug therapy; Z20.828 Contact with and (suspected) exposure to other viral communicable diseases
CPT/HCPCS: 36000; 36415; 71045; 80048; 80053; 82550; 82570; 82947; 83036; 83880; 84145; 84300; 84484; 84540; 85025; 85027; 85379; 93005; 93268; 93306; 96374; 96375; 97161; 99285; Q3014; J0360; J1644; J1817; J1940; J2405; A9270-GY

== ENCOUNTER 2023-02-07 07:21 | Day surgery (SDC) | payer MEDICARE ==
[2023-02-07] MEDS ORDERED: BUPIVACAINE 0.5% VIAL IJ ONE (07:22)
[2023-02-07] MEDS ORDERED: Depo-Medrol 40 MG/ML IM ONE (07:22)
[2023-02-07] MEDS ORDERED: Xylocaine-Mpf 2% 5 Ml Vial ONE (09:02)
[2023-02-07] MEDS ORDERED: DIPRIVAN 200 MG/20 ML IV ONE (09:12)
[2023-02-07] MEDS ORDERED: Lactated Ringers 1,000 ML IV ONE (09:47)
--- NOTE | 2023-02-07 10:28 | XRAY ---
Indication: Bilateral SI joint injection. Intraoperative fluoroscopy provided for 14 seconds. 3 digital spot images submitted for interpretation demonstrate posterior needle tip projecting over the expected left and right SI joint. Correlate with intraoperative findings/report.
--- NOTE | 2023-02-07 11:53 | XRAY ---
14 seconds of fluoroscopy was used in surgery for a bilateral sacroiliac joint injection.
== END 2023-02-07 09:26 | disposition home or self-care (01) ==
LOC: SDC-PAIN 07:21
PROVIDERS: ATTEND Psychiatry & Neurology Pain Medicine
DX: M46.1 Sacroiliitis, not elsewhere classified (principal); E11.9 Type 2 diabetes mellitus without complications; Z79.899 Other long term (current) drug therapy
CPT/HCPCS: 01992; 27096; 72202; 77002; 82947; 99100; G0260; J1030; J2704

== ENCOUNTER 2023-04-22 09:44 | Emergency (ER) | payer MEDICARE ==
[2023-04-22 09:58] VITALS: TEMP 98.2
[2023-04-22] MEDS ORDERED: MORPHINE SULFATE 2 MG INJ IV ONE ×2 (10:05→12:01)
[2023-04-22] MEDS ORDERED: Zofran 4 MG/2 ML VIAL IV ONE (10:05)
[2023-04-22 10:26] LABS: Absolute Neutrophil Ct (ANC) 2.94 x10^3/uL (1.4-6.9); BASOPHIL % 0.5 % (0.0-0.4); Basophil (Absolute #) 0.03 x10^3/uL (0-0.4); Eosinophil % 0.5 % (0.00-5.0); Eosinophil (Absolute #) 0.03 x10^3/uL (0-0.5); Hematocrit 27.2 % (35-47); Hemoglobin 8.5 g/dL (12.0-16.0); IMMATURE GRAN # 0.05 x10^3u/L (0.00-0.03); IMMATURE GRAN % 0.9 % (0.00-0.4); Lymphocyte (Absolute #) 1.69 x10^3/uL (1.0-4.6); Lymphocytes % 30.5 % (24.0-44.0); Mean Cell Volume 93.8 fL (78-100); Mean Corpuscular Hemoglobin 29.3 pg (26-32); Mean Corpuscular Hgb Concent. 31.3 g/dL (32-36); Mean Platelet Volume 9.2 fL (7.5-11.0); Monocytes % 14.4 % (0.0-12.0); Neutrophil % 53.2 % (36.0-66.0); Platelet Count 185 x10^3/uL (150-450); Red Cell Distribution Width 13.7 % (11.5-14.0); White Blood Count 5.5 x10^3/uL (4.0-10.5)
[2023-04-22] MEDS ORDERED: Zofran 4 MG/2 ML VIAL ONE (10:34)
[2023-04-22] MEDS ORDERED: MORPHINE SULFATE 2 MG INJ ONE ×2 (10:35→12:07)
[2023-04-22 11:08] LABS: ALBUMIN 3.6 g/dL (3.5-5.0); ANION GAP 18.1 MEQ/L (5-15); BILIRUBIN,TOTAL 0.5 mg/dL (0.2-1.3); Calcium 8.9 mg/dL (8.4-10.2); Creatinine 1 2.33 mg/dL (0.52-1.04); EST GLOMERULAR FILTRATION RATE 20.6 ML/MIN; Potassium 4.4 mmol/L (3.5-5.1); Total Protein 7.3 g/dL (6.3-8.2)
[2023-04-22] MEDS ORDERED: Sodium Chloride 0.9% 500 ML 500 ML IV ONE ×2 (11:48→11:52)
[2023-04-22 12:32] VITALS: RESP 17
--- NOTE | 2023-04-22 12:55 | ERPHSYRPT ---
- History of Present Illness Time Seen by Provider: 04/22/23 10:03 Patient Subjective Stated Complaint: L shoulder pain to back of shoulder x 3 days, NKI Triage Nursing Assessment: Pt arrives to ED bed 8 ambulatory. Changed into gown, placed on monitor. All vitals stable. Pt a &OX3, answers questions appropriately. Reports pain to back of L shoulder/scapular area x 3 days. NKI. No bruising, open area, lacerations noted to site. Area is tender upon palpation. Skin PWD. Pain does not radiate. Denies chest pain or other symptoms. Has taken extra strength tylenol without any relief. Pain 9/10, constant. EKG obtained, Dr. Pleitez at bedside evaluating pt. Physician History: 82 years old female with history of hyperlipidemia, sick sinus syndrome status post pacemaker placement presented in the ER with 3 days history of left scapular pain. Patient reports no fall or trauma. No difficulty breathing are chest pain. Pain is moderate to severe sharp throbbing more at the lower end/tip of his scapula, nonradiating, aggravated with movements at the shoulder without any numbness or tingling in the left upper extremity. No fever chills or cough reported. Lungs bilateral clear to auscultation. Has tenderness on the inner lower border of scapula and the tip of scapula. No rib cage tenderness. Reproducible pain with movements of scapula/shoulder. Intact distal neurovascular in left upper extremity. EKG did not show any acute ischemic changes. I have obtain x-rays which are negative for any acute findings reviewed by me, official report is pending. She has negative troponins. She has mild worsening of renal functions with a baseline around 2 and today is 2.3 creatinine and mild elevation of gap. I have given her gentle hydration bolus of 500 mL normal saline. She is given symptomatic treatment with morphine, on reevaluation she is much improved and wants to leave. I have convinced her to get fluids and will give her Tylenol with codeine to go home. I do not believe this is cardiac or pulmonary etiology but more of a musculoskeletal and recommended outpatient follow-up with primary care. Discussed signs symptoms of worsening needing return to ER which she seems understanding. Stable for discharge. Allergies/Adverse Reactions: No Known Drug Allergies Allergy (Verified 04/22/23 09:58) Home Medications: Atorvastatin Calcium [Lipitor 20MG Tablet] 10 mg PO HS 04/11/17 [History] Gabapentin [Neurontin] 300 mg PO QID 04/11/17 [History] Isosorbide Mononitrate [Isosorbide Mononitrate ER] 60 mg PO DAILY 09/17/21 [History] Potassium Chloride 10 meq PO BID 09/17/21 [History] Aspirin EC 81 mg [Ecotrin 81 mg] 81 mg PO DAILY 12/06/22 [History] Cyanocobalamin 500 Mcg [Vitamin B-12 500 MCG] 500 mcg PO DAILY 12/06/22 [History] Folic Acid 1 mg [Folate 1 mg] 2 mg PO DAILY 12/06/22 [History] Hx Tetanus, Diphtheria Vaccination/Date Given: Yes Hx Influenza Vaccination/Date Given: Yes Hx Pneumococcal Vaccination/Date Given: Yes Travel Risk - International Travel Have you traveled outside of the country in past 3 weeks: No - Coronavirus Screening Are you exhibiting any of the following symptoms?: No - Vaccine Status Have you recieved a Covid-19 vaccination: Yes 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 - Vaccination Dates Dates if Unknown: na - Review of Systems Constitutional: No Symptoms Eyes: No Symptoms Ears, Nose, & Throat: No Symptoms Respiratory: No Symptoms Cardiac: No Symptoms Abdominal/Gastrointestinal: No Symptoms Genitourinary Symptoms: No Symptoms Musculoskeletal: Other Skin: No Symptoms Neurological: No Symptoms Endocrine: No Symptoms - Past Medical History Pertinent Past Medical History: Yes Neurological History: No Pertinent History, Peripheral Neuropathy ENT History: Cataracts Cardiac History: Arrhythmia, Hypertension Respiratory History: No Pertinent History Endocrine Medical History: Diabetes Type II, Other Musculoskeletal History: Arthritis, Osteoarthritis, Rheumatoid Arthritis GI Medical History: No Pertinent History History: Renal Disease Psycho-Social History: No Pertinent History Female Reproductive Disorders: No Pertinent History Other Medical History: LUPUS, SJOGREN'S, B LE EDEMA. PACEMAKER - Past Surgical History Past Surgical History: Yes Neuro Surgical History: No Pertinent History Cardiac: Cardiac Catheterization Respiratory: No Pertinent History Gastrointestinal: Cholecystectomy Genitourinary: Other Musculoskeletal: No Pertinent History Female Surgical History: Hysterectomy Other Surgical History: bladder suspension - Social History Smoking Status: Never smoker Exposure to second hand smoke: No Drug Use: none Patient Lives Alone: No Significant Family History: no pertinent family hx (No significant hypertension. No cardiac disease.) - Nursing Vital Signs Nursing Vital Signs: Initial Vital Signs Temperature 98.2 F 04/22/23 09:53 Pulse Rate 68 04/22/23 09:53 Respiratory Rate 16 04/22/23 09:53 Blood Pressure 128/56 04/22/23 09:53 O2 Sat by Pulse Oximetry 96 04/22/23 09:53 Pain Scale Pain Intensity 2 - Physical Exam General Appearance: no apparent distress, alert Eye Exam: PERRL/EOMI Ears, Nose, Throat Exam: normal ENT inspection Neck Exam: normal inspection, non-tender, supple, full range of motion Respiratory Exam: normal breath sounds, lungs clear Cardiovascular Exam: regular rate/rhythm, normal heart sounds Gastrointestinal/Abdomen Exam: soft, No tenderness Back Exam: normal inspection, normal range of motion Extremity Exam: normal inspection, normal range of motion, pelvis stable, tenderness (Tenderness left inner lower border and lower end of scapula. No crepitus. No rib tenderness.), other Neurologic Exam: alert, oriented x 3, cooperative SpO2 Interpretation: normal SpO2: 96 O2 Delivery: Room Air Ordered Tests: Active Orders 24 hr Category Date Time Status Pals Nurse STAT Care 04/22/23 10:06 Completed EKG-ER Only STAT Care 04/22/23 10:05 Completed IV Insertion STAT Care 04/22/23 10:05 Completed CHEST 2 VIEWS (PA AND LAT) Stat Exams 04/22/23 10:06 Completed CBC W DIFF Stat Lab 04/22/23 10:15 Completed CK-Creatinine Phosphokinase Stat Lab 04/22/23 10:15 Completed CMP Stat Lab 04/22/23 10:15 Completed NT PRO BNPII Stat Lab 04/22/23 10:15 Completed TROPONIN Q4H Lab 04/22/23 10:15 Completed Medication Summary Discontinued Medications Generic Name Dose Route Start Last Admin Trade Name Freq PRN Reason Stop Dose Admin Sodium Chloride 500 mls @ 500 mls/hr 04/22/23 11:48 04/22/23 12:55 Sodium Chloride 0.9% 500 Ml IV 04/22/23 12:47 Infused .Q1H ONE Infusion Sodium Chloride Confirm 04/22/23 11:52 Sodium Chloride 0.9% 500 Ml Administered 04/22/23 11:53 Dose 500 mls @ ud IV .STK-MED ONE Morphine Sulfate 2 mg 04/22/23 10:05 04/22/23 10:38 Morphine Sulfate 2 Mg/Ml Inj IV 04/22/23 10:06 2 mg STAT ONE Administration Morphine Sulfate Confirm 04/22/23 10:35 Morphine Sulfate 2 Mg/Ml Inj Administered 04/22/23 10:36 Dose 2 mg .ROUTE .STK-MED ONE Morphine Sulfate 2 mg 04/22/23 12:01 04/22/23 12:08 Morphine Sulfate 2 Mg/Ml Inj IV 04/22/23 12:02 2 mg STAT ONE Administration Morphine Sulfate Confirm 04/22/23 12:07 Morphine Sulfate 2 Mg/Ml Inj Administered 04/22/23 12:08 Dose 2 mg .ROUTE .STK-MED ONE Ondansetron HCl 4 mg 04/22/23 10:05 04/22/23 10:38 Ondansetron Hcl 4 Mg/2 Ml Vial IV 04/22/23 10:06 4 mg STAT ONE Administration Ondansetron HCl Confirm 04/22/23 10:34 Ondansetron Hcl 4 Mg/2 Ml Vial Administered 04/22/23 10:35 Dose 4 mg .ROUTE .STK-MED ONE Lab/Rad Data: Laboratory Result Diagrams 04/22/23 10:15 04/22/23 10:15 Laboratory Results 04/22/23 04/22/23 04/22/23 Range/Units 10:15 10:15 10:15 WBC (4.0-10.5) x10^3/uL RBC (4.1-5.4) x10^6/uL Hgb (12.0-16.0) g/dL Hct (35-47) % MCV (78-100) fL MCH (26-32) pg MCHC (32-36) g/dL RDW (11.5-14.0) % Plt Count (150-450) x10^3/uL MPV (7.5-11.0) fL Gran % (36.0-66.0) % Immature Gran % (Auto) (0.00-0.4) % Nucleat RBC Rel Count (0.00-0.1) % Eos # (Auto) (0-0.5) x10^3/uL Immature Gran # (Auto) (0.00-0.03) x10^3u/L Absolute Lymphs (auto) (1.0-4.6) x10^3/uL Absolute Monos (auto) (0.0-1.3) x10^3/uL Absolute Nucleated RBC (0.00-0.01) x10^3u/L Lymphocytes % (24.0-44.0) % Monocytes % (0.0-12.0) % Eosinophils % (0.00-5.0) % Basophils % (0.0-0.4) % Absolute Granulocytes (1.4-6.9) x10^3/uL Basophils # (0-0.4) x10^3/uL Sodium 133 L (137-145) mmol/L Potassium 4.4 (3.5-5.1) mmol/L Chloride 102 (98-107) mmol/L Carbon Dioxide 17 L (22-30) mmol/L Anion Gap 18.1 H (5-15) MEQ/L BUN 34 H (7-17) mg/dL Creatinine 2.33 H (0.52-1.04) mg/dL Estimated GFR 20.6 ML/MIN Glucose 135 H (74-106) mg/dL Calcium 8.9 (8.4-10.2) mg/dL Total Bilirubin 0.50 (0.2-1.3) mg/dL AST 35 (14-36) U/L ALT 26 (0-35) U/L Alkaline Phosphatase 91 (38-126) U/L Creatine Kinase 45 (30-135) U/L Troponin I < 0.012 (0.000-0.034) ng/mL NT-Pro-B Natriuret Pep 2910 (<300) pg/mL Serum Total Protein 7.3 (6.3-8.2) g/dL Albumin 3.6 (3.5-5.0) g/dL 04/22/23 Range/Units 10:15 WBC 5.5 (4.0-10.5) x10^3/uL RBC 2.90 L (4.1-5.4) x10^6/uL Hgb 8.5 L (12.0-16.0) g/dL Hct 27.2 L (35-47) % MCV 93.8 (78-100) fL MCH 29.3 (26-32) pg MCHC 31.3 L (32-36) g/dL RDW 13.7 (11.5-14.0) % Plt Count 185 (150-450) x10^3/uL MPV 9.2 (7.5-11.0) fL Gran % 53.2 (36.0-66.0) % Immature Gran % (Auto) 0.9 H (0.00-0.4) % Nucleat RBC Rel Count 0.0 (0.00-0.1) % Eos # (Auto) 0.03 (0-0.5) x10^3/uL Immature Gran # (Auto) 0.05 H (0.00-0.03) x10^3u/L Absolute Lymphs (auto) 1.69 (1.0-4.6) x10^3/uL Absolute Monos (auto) 0.80 (0.0-1.3) x10^3/uL Absolute Nucleated RBC 0.00 (0.00-0.01) x10^3u/L Lymphocytes % 30.5 (24.0-44.0) % Monocytes % 14.4 H (0.0-12.0) % Eosinophils % 0.5 (0.00-5.0) % Basophils % 0.5 (0.0-0.4) % Absolute Granulocytes 2.94 (1.4-6.9) x10^3/uL Basophils # 0.03 (0-0.4) x10^3/uL Sodium (137-145) mmol/L Potassium (3.5-5.1) mmol/L Chloride (98-107) mmol/L Carbon Dioxide (22-30) mmol/L Anion Gap (5-15) MEQ/L BUN (7-17) mg/dL Creatinine (0.52-1.04) mg/dL Estimated GFR ML/MIN Glucose (74-106) mg/dL Calcium (8.4-10.2) mg/dL Total Bilirubin (0.2-1.3) mg/dL AST (14-36) U/L ALT (0-35) U/L Alkaline Phosphatase (38-126) U/L Creatine Kinase (30-135) U/L Troponin I (0.000-0.034) ng/mL NT-Pro-B Natriuret Pep (<300) pg/mL Serum Total Protein (6.3-8.2) g/dL Albumin (3.5-5.0) g/dL - Progress Progress: improved, re-examined Progress Note: 04/22/23 12:55 82 years old female with history of hyperlipidemia, sick sinus syndrome status post pacemaker placement presented in the ER with 3 days history of left scapular pain. Patient reports no fall or trauma. No difficulty breathing are chest pain. Pain is moderate to severe sharp throbbing more at the lower end/tip of his scapula, nonradiating, aggravated with movements at the shoulder without any numbness or tingling in the left upper extremity. No fever chills or cough reported. Lungs bilateral clear to auscultation. Has tenderness on the inner lower border of scapula and the tip of scapula. No rib cage tenderness. Reproducible pain with movements of scapula/shoulder. Intact distal neurovascular in left upper extremity. EKG did not show any acute ischemic changes. I have obtain x-rays which are negative for any acute findings reviewed by me, official report is pending. She has negative troponins. She has mild worsening of renal functions with a baseline around 2 and today is 2.3 creatinine and mild elevation of gap. I have given her gentle hydration bolus of 500 mL normal saline. She is given symptom atic treatment with morphine, on reevaluation she is much improved and wants to leave. I have convinced her to get fluids and will give her Tylenol with codeine to go home. I do not believe this is cardiac or pulmonary etiology but more of a musculoskeletal and recommended outpatient follow-up with primary care. Discussed signs symptoms of worsening needing return to ER which she seems understanding. Stable for discharge. Counseled pt/family regarding: lab results, diagnosis, need for follow-up, rad results Medical Desision Making - Diagnostic Testing Diagnostic test were ordered, analyzed, and reviewed by me: Yes Radiological Interpretation: Interpreted by me, Reviewed by me - Risk of complications The pt has a mod risk of morbidity or mortality based on: Need for prescription drug management - Departure Departure Disposition: Home Clinical Impression: Pain of left scapula, BETTY (acute kidney injury) Condition: Stable Critical Care Time: No Referrals: KATHIE HODGE MD [Primary Care Provider] - Follow up/PCP as directed Instructions: Acute Kidney Injury (DC), Shoulder Tendinopathy (DC) Additional Instructions: Take pain medications as needed. Avoid exertional activities. Follow-up with primary care for reevaluation in the morning. Return to ER for any worsening. Prescriptions: Codeine Phosphate/APAP #3 [Tylenol #3 Tablet] 1 tab PO TID PRN #10 tablet PRN Reason: Pain
[2023-04-22 13:06] VITALS: BP 140/61; PULSE 64
--- NOTE | 2023-04-22 18:38 | XRAY ---
Indication: Left scapula pain. Comparison: December 06, 2022 PA/lateral chest now hyperinflated again with right middle lobe infiltrate/atelectasis less than before. Minimal left base subsegmental atelectasis/scarring. Remaining heart and lungs unremarkable again with left pacemaker. Bony thorax intact again with osteopenia, degenerative changes, and levorotoscoliosis.
[2023-04-22 21:19] VITALS: O2SAT 96
== END 2023-04-22 13:11 | disposition home or self-care (01) ==
LOC: ED 09:44
DX: M25.512 Pain in left shoulder (principal); N17.9 Acute kidney failure, unspecified; I10 Essential (primary) hypertension; E11.42 Type 2 diabetes mellitus with diabetic polyneuropathy; Z79.899 Other long term (current) drug therapy; Z79.891 Long term (current) use of opiate analgesic
CPT/HCPCS: 36000; 36415; 71046; 80053; 82550; 83880; 84484; 85025; 93005; 93041; 96374; 99284; J2270; J2405

== ENCOUNTER 2023-09-05 07:36 | Day surgery (SDC) | payer MEDICARE ==
[2023-09-05] MEDS ORDERED: BUPIVACAINE 0.5% VIAL IJ ONE (07:37)
[2023-09-05] MEDS ORDERED: Depo-Medrol 40 MG/ML IM ONE (07:37)
[2023-09-05] MEDS ORDERED: DIPRIVAN 200 MG/20 ML IV ONE (09:04)
[2023-09-05] MEDS ORDERED: Xylocaine-Mpf 2% 5 Ml Vial ONE (09:05)
[2023-09-05] MEDS ORDERED: Lactated Ringers 1,000 ML IV ONE (10:54)
--- NOTE | 2023-09-05 11:37 | XRAY ---
Indication: Bilateral SI joints injection. Intraoperative fluoroscopy provided for 15 seconds. 4 digital spot image submitted for interpretation demonstrates posterior needle tip projecting over the left and right SI joint. Correlate with intraoperative findings/report.
--- NOTE | 2023-09-05 13:07 | XRAY ---
15 seconds of fluoroscopy was used in surgery for a bilateral sacroiliac joint injection.
== END 2023-09-05 09:35 | disposition home or self-care (01) ==
LOC: SDC-PAIN 07:36
PROVIDERS: ATTEND Psychiatry & Neurology Pain Medicine
DX: M46.1 Sacroiliitis, not elsewhere classified (principal); E11.9 Type 2 diabetes mellitus without complications
CPT/HCPCS: 27096; 72202; 77002; 82947; 99100; J1030; J2704; G0260

== ENCOUNTER 2024-03-21 09:48 | Inpatient (IN) | payer MEDICARE ==
--- NOTE | 2024-03-21 11:02 | ERPHSYRPT ---
- History of Present Illness Time Seen by Provider: 03/21/24 10:00 Source: patient, family Exam Limitations: no limitations Patient Subjective Stated Complaint: UTI Symptoms Triage Nursing Assessment: Patient brought into ED per w/c and transferred to bed with assist of 1. Patient A+O X 3. Patien'ts skin pink, warm and dry. Patient states she has been dealing with a UTI for several months. Patient states she wants to be tested for UTI due to having urgency, frequency, hesitency and drysuria. Patient currently denies pain or discomfort. Physician History: 83-year-old female with multiple medical problems including CKD, recurrent UTIs who has been taking antibiotics multiple times for the last few months but sympt oms are recurring. Patient reports dysuria, increased frequency, bladder spasming but denies any hematuria. No abdominal pain otherwise. Has some nausea and dry heaving as well. No fever or chills reported. Denies any flank pain. Complaining of generalized weakness fatigue and tiredness. No chest pain palpitations or shortness of breath. Allergies/Adverse Reactions: dapagliflozin [From Farxiga] Adverse Reaction (Unknown, Verified 03/21/24 10:21) doxazosin Adverse Reaction (Unknown, Verified 03/21/24 10:21) rituximab [From Rituxan] Adverse Reaction (Unknown, Verified 03/21/24 10:21) Home Medications: Atorvastatin Calcium [Lipitor 20MG Tablet] 10 mg PO HS 04/11/17 [History] Gabapentin [Neurontin] 300 mg PO TID 04/11/17 [History] Isosorbide Mononitrate [Isosorbide Mononitrate ER] 60 mg PO DAILY 09/17/21 [History] Aspirin EC 81 mg [Ecotrin 81 mg] 81 mg PO DAILY 12/06/22 [History] Folic Acid 1 mg [Folate 1 mg] 2 mg PO DAILY 12/06/22 [History] Ferrous Sulfate 325 mg PO BID 03/13/24 [History] Furosemide [Lasix] 40 mg PO DAILY 03/13/24 [History] Glimepiride 2 mg PO DAILY 03/13/24 [History] Hydralazine HCl 100 mg PO DAILY 03/13/24 [History] Hydrocodone/Acetaminophen [Hydrocodone-Acetamin 5-325 mg] 1 tab PO TID PRN 03/13/24 [History] allopurinoL [Zyloprim] 100 mg PO BID 03/13/24 [History] lisinopriL [Lisinopril] 10 mg PO DAILY 03/13/24 [History] methylPREDNISolone [Methylprednisolone] 2 mg PO BID 03/13/24 [History] Hx Tetanus, Diphtheria Vaccination/Date Given: Yes Hx Influenza Vaccination/Date Given: Yes Hx Pneumococcal Vaccination/Date Given: Yes Travel Risk - International Travel Have you traveled outside of the country in past 3 weeks: No - Emerging Infectious Disease Are you exhibiting symptoms associated with any current EIDs: No - Review of Systems Constitutional: Fatigue Eyes: No Symptoms Ears, Nose, & Throat: No Symptoms Respiratory: No Symptoms Cardiac: No Symptoms Abdominal/Gastrointestinal: Nausea, Vomiting Genitourinary Symptoms: Dysuria, Frequency Musculoskeletal: Arthralgias Skin: No Symptoms Neurological: No Symptoms Endocrine: No Symptoms - Past Medical History Pertinent Past Medical History: Yes Neurological History: No Pertinent History ENT History: Cataracts Cardiac History: Arrhythmia, Hypertension, Other Respiratory History: No Pertinent History Endocrine Medical History: Diabetes Type II, Other Musculoskeletal History: Osteoarthritis GI Medical History: No Pertinent History History: Renal Disease Psycho-Social History: No Pertinent History Female Reproductive Disorders: No Pertinent History Other Medical History: L ANKLE FRACTURE, PACEMAKER. 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 No cardiac disease.) - Social History Smoking Status: Never smoker Exposure to second hand smoke: No Drug Use: none Patient Lives Alone: No - Social Determinants of Health Will the patient participate in the screening: Yes Do you worry about a steady place to live?: No Do you have any problems with any of the following?: No known problems In the past 12 months,have you had to go without utilities?: No Transportation Issues: No Has anyone in your support network made you feel unsafe?: No Have you or anyone in your house had to go without enough: No - Nursing Vital Signs Nursing Vital Signs: Initial Vital Signs Temperature 97.8 F 03/21/24 10:22 Pulse Rate 68 03/21/24 10:22 Respiratory Rate 20 03/21/24 10:22 Blood Pressure 178/68 03/21/24 10:22 O2 Sat by Pulse Oximetry 97 03/21/24 10:22 Pain Scale Pain Intensity 0 - Physical Exam General Appearance: no apparent distress, alert Ears, Nose, Throat Exam: normal ENT inspection, pharynx normal Neck Exam: normal inspection, full range of motion Respiratory Exam: normal breath sounds, lungs clear Cardiovascular Exam: regular rate/rhythm, normal heart sounds Gastrointestinal/Abdomen Exam: soft, normal bowel sounds, No tenderness, No distention, No guarding Back Exam: normal inspection, normal range of motion Extremity Exam: normal inspection, normal range of motion Neurologic Exam: alert, oriented x 3, cooperative Skin Exam: normal color SpO2 Interpretation: normal SpO2: 97 O2 Delivery: Room Air Ordered Tests: Active Orders 24 hr Category Date Time Status IV Insertion STAT Care 03/21/24 10:34 Active CBC W DIFF Stat Lab 03/21/24 10:50 Completed CMP Stat Lab 03/21/24 10:50 Completed CULTURE,URINE Stat Lab 03/21/24 10:42 Received LIPASE Stat Lab 03/21/24 10:50 Completed Lactic Acid Stat Lab 03/21/24 10:50 Completed Manual Differential NC Stat Lab 03/21/24 10:50 Completed UA W/RFX UR CULTURE Stat Lab 03/21/24 10:42 Completed Transfer Order Routine Transfer 03/21/24 Ordered Medication Summary Generic Name Dose Route Start Last Admin Trade Name Freq PRN Reason Stop Dose Admin Ceftriaxone Sodium 1 gm in 100 mls @ 200 mls/hr 03/21/24 12:02 03/21/24 12:16 Rocephin 1 Gm / 100 Ml Nacl IV 03/21/24 12:31 200 mls/hr STAT ONE 200 mls/hr Administration Discontinued Medications Generic Name Dose Route Start Last Admin Trade Name Freq PRN Reason Stop Dose Admin Sodium Chloride 500 mls @ 500 mls/hr 03/21/24 10:34 03/21/24 12:19 Sodium Chloride 0.9% 500 Ml IV 03/21/24 11:33 Infused .Q1H ONE Infusion Sodium Chloride Confirm 03/21/24 11:05 Sodium Chloride 0.9% 500 Ml Administered 03/21/24 11:06 Dose 500 mls @ ud IV .STK-MED ONE Ceftriaxone Sodium Confirm 03/21/24 12:15 Rocephin 1 Gm / 100 Ml Nacl Administered 03/21/24 12:16 Dose 1 gm in 100 mls @ ud IV .STK-MED ONE Ondansetron HCl 4 mg 03/21/24 10:34 03/21/24 11:08 Ondansetron Hcl 4 Mg/2 Ml Vial IV 03/21/24 10:35 4 mg STAT ONE Administration Ondansetron HCl Confirm 03/21/24 11:05 Ondansetron Hcl 4 Mg/2 Ml Vial Administered 03/21/24 11:06 Dose 4 mg .ROUTE .STK-MED ONE Lab/Rad Data: Laboratory Result Diagrams 03/21/24 10:50 03/21/24 10:50 Laboratory Results 03/21/24 03/21/24 03/21/24 Range/Units 10:50 10:50 10:50 WBC 12.0 H (3.98-10.04) x10^3/uL RBC 2.89 L (3.93-5.22) x10^6/uL Hgb 9.1 L (11.2-15.7) g/dL Hct 28.4 L (34.1-44.9) % MCV 98.3 H (79.4-94.8) fL MCH 31.5 (25.6-32.2) pg MCHC 32.0 L (32.2-35.5) g/dL RDW 17.2 H (11.7-14.4) % Plt Count 129 L (182-369) x10^3/uL MPV 10.1 (9.4-12.3) fL Sodium 130 L (135-145) mmol/L Potassium 3.3 L (3.5-5.1) mmol/L Chloride 100 (98-107) mmol/L Carbon Dioxide 18 L (22-30) mmol/L Anion Gap 14.7 (5-15) MEQ/L BUN 71 H (7-17) mg/dL Creatinine 2.73 H (0.52-1.04) mg/dL Estimated GFR 17.0 ML/MIN Glucose 182 H (74-106) mg/dL Lactic Acid 0.9 (0.4-2.0) Calcium 8.7 (8.4-10.2) mg/dL Total Bilirubin 0.80 (0.2-1.3) mg/dL AST 26 (14-36) U/L ALT 24 (0-35) U/L Alkaline Phosphatase 66 (38-126) U/L Serum Total Protein 6.1 L (6.3-8.2) g/dL Albumin 3.4 L (3.5-5.0) g/dL Lipase 135 (23-300) U/L Urine Color (Yellow) Urine Appearance (Clear) Urine pH (4.6-8.0) Ur Specific [place] (1.005-1.030) Urine Protein (Negative) Urine Glucose (UA) (Negative) mg/dL Urine Ketones (Negative) Urine Blood (Negative) Urine Nitrite (Negative) Urine Bilirubin (Negative) Urine Urobilinogen (0.2) mg/dL Ur Leukocyte Esterase (Negative) Urine Microscopic RBC (0-5) /HPF Urine Microscopic WBC (0-5) /HPF Ur Epithelial Cells (None Seen) /HPF Urine Bacteria (None Seen) /HPF Urine Culture Reflexed (NO) 03/21/24 Range/Units 10:42 WBC (3.98-10.04) x10^3/uL RBC (3.93-5.22) x10^6/uL Hgb (11.2-15.7) g/dL Hct (34.1-44.9) % MCV (79.4-94.8) fL MCH (25.6-32.2) pg MCHC (32.2-35.5) g/dL RDW (11.7-14.4) % Plt Count (182-369) x10^3/uL MPV (9.4-12.3) fL Sodium (135-145) mmol/L Potassium (3.5-5.1) mmol/L Chloride (98-107) mmol/L Carbon Dioxide (22-30) mmol/L Anion Gap (5-15) MEQ/L BUN (7-17) mg/dL Creatinine (0.52-1.04) mg/dL Estimated GFR ML/MIN Glucose (74-106) mg/dL Lactic Acid (0.4-2.0) Calcium (8.4-10.2) mg/dL Total Bilirubin (0.2-1.3) mg/dL AST (14-36) U/L ALT (0-35) U/L Alkaline Phosphatase (38-126) U/L Serum Total Protein (6.3-8.2) g/dL Albumin (3.5-5.0) g/dL Lipase (23-300) U/L Urine Color Yellow (Yellow) Urine Appearance Turbid A (Clear) Urine pH 5.5 (4.6-8.0) Ur Specific [place] 1.010 (1.005-1.030) Urine Protein 100 A (Negative) Urine Glucose (UA) Negative (Negative) mg/dL Urine Ketones Negative (Negative) Urine Blood Negative (Negative) Urine Nitrite Positive A (Negative) Urine Bilirubin Negative (Negative) Urine Urobilinogen 0.2 (0.2) mg/dL Ur Leukocyte Esterase Large A (Negative) Urine Microscopic RBC 3-5 (0-5) /HPF Urine Microscopic WBC >100 A (0-5) /HPF Ur Epithelial Cells Rare (None Seen) /HPF Urine Bacteria Rare A (None Seen) /HPF Urine Culture Reflexed YES (NO) - Progress Progress: unchanged Air Movement: good Progress Note: 03/21/24 12:22 83-year-old with multiple medical problems including diabetes mellitus, hypertension, CKD, recurrent UTIs needing multiple rounds of antibiotic is evaluated in the ER for recurrent UTI symptoms. She has no abdominal tender ness. She is given gentle hydration. Workup showed white count of 12, hemoglobin 9.1, patient does have chronic anemia. Patient has a creatinine baseline around 1.3-1.8 but today is 2.7 with a BUN of 70. Does have UTI. Given a dose of Rocephin. I believe patient has BETTY on CKD and would benefit with gentle hydration and monitoring of renal functions along with IV antibiotics for UTI and follow the culture results. Discussed with Dr. Vivar and patient is being admitted. Shared the results of workup with patient and family and plan of admission which they understand and agree. Blood Culture(s) Obtained: No Antibiotics given: Yes Discussed with DrVick: Other (Dr. Saab ) Will see patient in: hospital (observation) Counseled pt/family regarding: lab results, diagnosis Medical Desision Making - Independent Historian Additional History obtained from: Spouse - Discussion of managment Care discussed with:: hospitalist Reviewed:: Test results Agreed on:: Treatment plan, place in obs Will see patient: in hospital - Diagnostic Testing Diagnostic test were ordered, analyzed, and reviewed by me: Yes - Risk of complications The pt has a mod risk of morbidity or mortality based on: Need for prescription drug management The pt has a high risk of morbidity or mortality based on: Decision regarding hospitilization or escalation of hosp level of care - Departure Departure Disposition: Observation Clinical Impression: Acute kidney injury superimposed on CKD, Acute UTI (urinary tract infection) Condition: Stable Critical Care Time: No Referrals: KATHIE HODGE MD [Primary Care Provider] - Follow up/PCP as directed
[2024-03-21 11:03] LABS: Hematocrit 28.4 % (34.1-44.9); Hemoglobin 9.1 g/dL (11.2-15.7); Mean Cell Volume 98.3 fL (79.4-94.8); Mean Corpuscular Hemoglobin 31.5 pg (25.6-32.2); Mean Platelet Volume 10.1 fL (9.4-12.3); Platelet Count 129 x10^3/uL (182-369); Red Blood Count 2.89 x10^6/uL (3.93-5.22); Red Cell Distribution Width 17.2 % (11.7-14.4)
[2024-03-21 11:03] LABS: Appearance Turbid (Clear); Bilirubin Negative (Negative); Blood Negative (Negative); Glucose, Urine Negative (Negative); Ketones Negative (Negative); Leukocyte Esterase Large (Negative); Nitrite Positive (Negative); Ph 5.5 (4.6-8.0); Protein,Urine Dip 100 (Negative); Urobilinogen 0.2 mg/dL (0.2)
[2024-03-21] MEDS ORDERED: Sodium Chloride 0.9% 500 ML 500 ML IV ONE (11:05)
[2024-03-21] MEDS ORDERED: Zofran 4 MG/2 ML VIAL ONE (11:05)
[2024-03-21] MEDS: Sodium Chloride 0.9% 500 ML 500 ML IV ONE (11:08)
[2024-03-21] MEDS: Zofran 4 MG/2 ML VIAL IV ONE (11:08)
[2024-03-21 11:12] LABS: ALBUMIN 3.4 g/dL (3.5-5.0); ANION GAP 14.7 MEQ/L (5-15); BILIRUBIN,TOTAL 0.8 mg/dL (0.2-1.3); Calcium 8.7 mg/dL (8.4-10.2); Creatinine 1 2.73 mg/dL (0.52-1.04); Potassium 3.3 mmol/L (3.5-5.1); Total Protein 6.1 g/dL (6.3-8.2)
[2024-03-21 11:36] LABS: Epithelial Cells Rare /HPF (None Seen); WBC >100 /HPF (0-5)
[2024-03-21 11:37] LABS: Bacteria Rare /HPF (None Seen)
[2024-03-21] MEDS ORDERED: ROCEPHIN 1 GM / 100 ML NaCl 1 GM/100 ML IVPB IV ONE (12:15)
[2024-03-21] MEDS: ROCEPHIN 1 GM / 100 ML NaCl 1 GM/100 ML IVPB IV ONE (12:16)
[2024-03-21 12:34] LABS: BAND 3 % (0.0-2.0); Lymphocytes 22 % (19.3-51.7); Metamyelocyte 4 %; Monocyte 6 % (4.7-12.5); Myelocyte 2 %; Neutrophils 63 % (34.0-71.1); Total Cells Counted 100
[2024-03-21 12:40] LABS: ANISOCYTOSIS 2+; Platelet Estimate DECREASED (NORMAL); Polychromasia 1+
--- NOTE | 2024-03-21 13:05 | PCM.HP ---
History of Present Illness - Chief Complaint Chief Complaint: dysuria/frequency Date: 03/21/24 History of Present Illness: is a 83 year old female hypertension, CKD, RA, stage III, DM2, lupus, Sjogren's, sick sinus syndrome,recurrent UTI's, anemia, CHF, and peripheral neuropathy who presented to ED 03/21/24 with complaints of dysuria, frequency, subjective fevers, nausea, and vomiting for the past week. She reports she has had recurrent UTI's for several months now and has been prescribed cefpodoxime most recently by her hot frame tender Dr. Lopez. She denies hematuria or flank pain. Patient is incontinent with multiple areas of dermatitis on her buttocks. She also reports a poor appetite and energy level, shortness of breath with exertion, and occasional constipation. Denies cp, abdominal pain, BECERRA, or diarrhea. Upon exam patient is euvolemic with clear lung sounds on auscultation. Upon presentation patient hypertensive. Lab findings remarkable for leukocytosis at 12.0, hyponatremia at 130, hypokalemia at 3.3, acidosis with co2 at 18, BETTY with BUN at 71, and creat 2.73 (baseline 1.3-1.8). UA with positive nitrites and leukocytes. Patient given 500ml fluid bolus and ceftriaxone in ED. Admit for UTI and Acute on chronic kidney disease. - Review of Systems Constitutional: Fever, Chills, Weakness Eyes: No Symptoms Ears, Nose, & Throat: No Symptoms Respiratory: Short Of Breath Cardiac: No Symptoms Abdominal/Gastrointestinal: Nausea, Vomiting, Constipation Genitourinary Symptoms: Dysuria, Frequency, Incontinence Musculoskeletal: Back Pain Skin: Other (incontinence dermatitis - two open areas to bilateral buttocks) Neurological: No Symptoms Psychological: No Symptoms Endocrine: No Symptoms Hematologic/Lymphatic: Anemia Immunological/Allergic: No Symptoms Medications & Allergies Home Medications: Home Medication List Atorvastatin Calcium [Lipitor 20MG Tablet] 10 mg PO HS 04/11/17 [History Confirmed 03/21/24] Gabapentin [Neurontin] 300 mg PO TID 04/11/17 [History Confirmed 03/21/24] Isosorbide Mononitrate [Isosorbide Mononitrate ER] 60 mg PO DAILY 09/17/21 [History Confirmed 03/21/24] Aspirin EC 81 mg [Ecotrin 81 mg] 81 mg PO DAILY 12/06/22 [History Confirmed 03/21/24] Folic Acid 1 mg [Folate 1 mg] 1 mg PO DAILY 12/06/22 [History Confirmed 03/21/24] carvediloL [Carvedilol] 25 mg PO BID #60 tablet 12/10/22 [Rx Confirmed 03/21/24] Ferrous Sulfate 325 mg PO BID 03/13/24 [History Confirmed 03/21/24] Furosemide [Lasix] 40 mg PO DAILY 03/13/24 [History Confirmed 03/21/24] Glimepiride 2 mg PO DAILY 03/13/24 [History Confirmed 03/21/24] Hydralazine HCl 100 mg PO DAILY 03/13/24 [History Confirmed 03/21/24] Hydrocodone/Acetaminophen [Hydrocodone-Acetamin 5-325 mg] 1 tab PO TID PRN 03/13/24 [History Confirmed 03/21/24] allopurinoL [Zyloprim] 100 mg PO BID 03/13/24 [History Confirmed 03/21/24] lisinopriL [Lisinopril] 10 mg PO DAILY 03/13/24 [History Confirmed 03/21/24] methylPREDNISolone [Methylprednisolone] 4 mg PO DAILY 03/13/24 [History Confirmed 03/21/24] Allergies/Adverse Reactions: Allergies Allergy/AdvReac Type Severity Reaction Status Date / Time dapagliflozin [From Farxiga] AdvReac Unknown Verified 03/21/24 10:21 doxazosin AdvReac Unknown Verified 03/21/24 10:21 rituximab [From Rituxan] AdvReac Unknown Verified 03/21/24 10:21 - Past Medical History Past Medical History: Yes Neurological History: No Pertinent History ENT History: Cataracts Cardiac History: Arrhythmia, Hypertension, Other Respiratory History: No Pertinent History Endocrine Medical History: Diabetes Type II, Other Musculoskelatal History: Osteoarthritis GI Medical History: No Pertinent History History: Renal Disease Pyscho-Social History: No Pertinent History Reproductive Disorders: No Pertinent History Comment: L ANKLE FRACTURE, PACEMAKER. LOW FUNCTIONING KIDNEYS - Past Surgical History Past Surgical History: Yes Neuro Surgical History: No Pertinent History Cardiac History: Cardiac Catheterization Respiratory Surgery: No Pertinent History GI Surgical History: Cholecystectomy Genitourinary Surgical Hx: Other Musculskeletal Surgical Hx: No Pertinent History Female Surgical History: Hysterectomy Other Surgical History: bladder suspension Significant Family History: no pertinent family hx (No significant hypertension. No cardiac disease.) - Social History Smoking Status: Never smoker Exposure to second hand smoke: No Alcohol: None Drug Use: none - Social Determinants of Health Will the patient participate in the screening: Yes Do you worry about a steady place to live?: No Do you have any problems with any of the following?: No known problems In the past 12 months,have you had to go without utilities?: No Have you or anyone in your house had to go without enough: No Transportation Issues: No Has anyone in your support network made you feel unsafe?: No - Physical Exam Vital Signs: Vital Signs - 24 hr Temp Pulse Resp BP BP Pulse Ox 03/21/24 12:24 97 03/21/24 11:30 91 H 16 163/83 94 L 03/21/24 10:30 66 16 174/73 93 L 03/21/24 10:22 97.8 F 68 20 178/68 97 General Appearance: no apparent distress Neurologic Exam: alert, oriented x 3, cooperative Eye Exam: PERRL/EOMI Ears, Nose, Throat Exam: normal ENT inspection Neck Exam: normal inspection Respiratory Exam: normal breath sounds, lungs clear Cardiovascular Exam: regular rate/rhythm, normal heart sounds Gastrointestinal/Abdomen Exam: normal bowel sounds, other (firm abdomen) Pelvic Exam: not done Rectal Exam: deferred Back Exam: normal inspection Extremity Exam: normal inspection Skin Exam: other (incontinence dermatitis - two open areas to bilateral buttocks -see media in chart) Results - Labs Lab/Micro Results: Lab Results-Last 24 Hours 03/21/24 03/21/24 03/21/24 Range/Units 10:42 10:50 10:50 WBC 12.0 H (3.98-10.04) x10^3/uL RBC 2.89 L (3.93-5.22) x10^6/uL Hgb 9.1 L (11.2-15.7) g/dL Hct 28.4 L (34.1-44.9) % MCV 98.3 H (79.4-94.8) fL MCH 31.5 (25.6-32.2) pg MCHC 32.0 L (32.2-35.5) g/dL RDW 17.2 H (11.7-14.4) % Plt Count 129 L (182-369) x10^3/uL MPV 10.1 (9.4-12.3) fL Segmented Neutrophils 63 (34.0-71.1) % Band Neutrophils 3 H (0.0-2.0) % Lymphocytes (Manual) 22 (19.3-51.7) % Monocytes (Manual) 6 (4.7-12.5) % Metamyelocytes 4 % Myelocytes 2 % Platelet Estimate DECREASED (NORMAL) RBC Morphology ABNORMAL Polychromasia 1+ Anisocytosis 2+ Sodium (135-145) mmol/L Potassium (3.5-5.1) mmol/L Chloride (98-107) mmol/L Carbon Dioxide (22-30) mmol/L Anion Gap (5-15) MEQ/L BUN (7-17) mg/dL Creatinine (0.52-1.04) mg/dL Estimated GFR ML/MIN Glucose (74-106) mg/dL Lactic Acid 0.9 (0.4-2.0) Calcium (8.4-10.2) mg/dL Total Bilirubin (0.2-1.3) mg/dL AST (14-36) U/L ALT (0-35) U/L Alkaline Phosphatase (38-126) U/L Serum Total Protein (6.3-8.2) g/dL Albumin (3.5-5.0) g/dL Lipase (23-300) U/L Urine Color Yellow (Yellow) Urine Appearance Turbid A (Clear) Urine pH 5.5 (4.6-8.0) Ur Specific [place] 1.010 (1.005-1.030) Urine Protein 100 A (Negative) Urine Glucose (UA) Negative (Negative) mg/dL Urine Ketones Negative (Negative) Urine Blood Negative (Negative) Urine Nitrite Positive A (Negative) Urine Bilirubin Negative (Negative) Urine Urobilinogen 0.2 (0.2) mg/dL Ur Leukocyte Esterase Large A (Negative) Urine Microscopic RBC 3-5 (0-5) /HPF Urine Microscopic WBC >100 A (0-5) /HPF Ur Epithelial Cells Rare (None Seen) /HPF Urine Bacteria Rare A (None Seen) /HPF Urine Culture Reflexed YES (NO) 03/21/24 Range/Units 10:50 WBC (3.98-10.04) x10^3/uL RBC (3.93-5.22) x10^6/uL Hgb (11.2-15.7) g/dL Hct (34.1-44.9) % MCV (79.4-94.8) fL MCH (25.6-32.2) pg MCHC (32.2-35.5) g/dL RDW (11.7-14.4) % Plt Count (182-369) x10^3/uL MPV (9.4-12.3) fL Segmented Neutrophils (34.0-71.1) % Band Neutrophils (0.0-2.0) % Lymphocytes (Manual) (19.3-51.7) % Monocytes (Manual) (4.7-12.5) % Metamyelocytes % Myelocytes % Platelet Estimate (NORMAL) RBC Morphology Polychromasia Anisocytosis Sodium 130 L (135-145) mmol/L Potassium 3.3 L (3.5-5.1) mmol/L Chloride 100 (98-107) mmol/L Carbon Dioxide 18 L (22-30) mmol/L Anion Gap 14.7 (5-15) MEQ/L BUN 71 H (7-17) mg/dL Creatinine 2.73 H (0.52-1.04) mg/dL Estimated GFR 17.0 ML/MIN Glucose 182 H (74-106) mg/dL Lactic Acid (0.4-2.0) Calcium 8.7 (8.4-10.2) mg/dL Total Bilirubin 0.80 (0.2-1.3) mg/dL AST 26 (14-36) U/L ALT 24 (0-35) U/L Alkaline Phosphatase 66 (38-126) U/L Serum Total Protein 6.1 L (6.3-8.2) g/dL Albumin 3.4 L (3.5-5.0) g/dL Lipase 135 (23-300) U/L Urine Color (Yellow) Urine Appearance (Clear) Urine pH (4.6-8.0) Ur Specific [place] (1.005-1.030) Urine Protein (Negative) Urine Glucose (UA) (Negative) mg/dL Urine Ketones (Negative) Urine Blood (Negative) Urine Nitrite (Negative) Urine Bilirubin (Negative) Urine Urobilinogen (0.2) mg/dL Ur Leukocyte Esterase (Negative) Urine Microscopic RBC (0-5) /HPF Urine Microscopic WBC (0-5) /HPF Ur Epithelial Cells (None Seen) /HPF Urine Bacteria (None Seen) /HPF Urine Culture Reflexed (NO) Assessment/Plan (1) Acute UTI (urinary tract infection) Current Visit: Yes Status: Acute Assessment & Plan: -UA suspicious for UTI - Previous cultures reviewed as patient has had recurrent infections - most recently with ECOLI - multiple UTIs since December with recent treatment with cefpodoxime- recent cultures resistant to levaquin/bactrim - received ceftriaxone in ED - will continue with Zosyn- follow cultures Code(s): N39.0 - URINARY TRACT INFECTION, SITE NOT SPECIFIED (2) Acute kidney injury superimposed on CKD Current Visit: Yes Status: Acute Assessment & Plan: -Patient of Dr. Lopez -baseline creat 1.3-1.8 -Urine sodium, creat, and urea nitrogen -check FEUrea when urine sodium, urea nitrogen, and creat available - patient on diurectics -IVF @ 75ml/hr in the setting of CHF- monitor for fluid overload -strict I&O's -renal US -Avoid nephrotoxic agents - contrast -monitor renal/lytes closely Code(s): N17.9 - ACUTE KIDNEY FAILURE, UNSPECIFIED; N18.9 - CHRONIC KIDNEY DISEASE, UNSPECIFIED (3) Hypokalemia Current Visit: Yes Status: Acute Assessment & Plan: -Replenish per protocol - recheck 2 hours after final dose -tele Code(s): E87.6 - HYPOKALEMIA (4) Metabolic acidosis Current Visit: Yes Status: Acute Assessment & Plan: -sodium bicarb po Code(s): E87.20 - ACIDOSIS, UNSPECIFIED (5) Chronic anemia Current Visit: Yes Status: Acute Assessment & Plan: -Hgb at 9.1 -macrocytic -iron profile -transfuse if hgb < 7 -Continue ferrous sulfate Code(s): D64.9 - ANEMIA, UNSPECIFIED (6) Lupus Current Visit: Yes Status: Acute Code(s): [id number] - (7) Sick sinus syndrome Current Visit: Yes Status: Acute Assessment & Plan: -noted with pacemaker Code(s): I49.5 - SICK SINUS SYNDROME (8) HTN (hypertension) Current Visit: Yes Status: Acute Assessment & Plan: -stable - continue home meds coreg, hydralazine TID dosing, add amlodipine, - hold lisinopril due to BETTY Code(s): I10 - ESSENTIAL (PRIMARY) HYPERTENSION (9) Sjogren syndrome Current Visit: Yes Status: Acute Assessment & Plan: -continue home meds Code(s): M35.00 - SJOGREN SYNDROME, UNSPECIFIED (10) CHF (congestive heart failure) Current Visit: Yes Status: Acute Assessment & Plan: -Echo performed today - pending -Echo from 12/07/22 reviewed EF 50-55% IMPRESSION: 1) MILD TO MODERATE ASYMMETRIC LEFT VENTRICULAR HYPERTROPHY WITHOUT EVIDENCE OF LEFT VENTRICULAR OUTFLOW TRACT OBSTRUCTION. 2) LOW NORMAL LEFT VENTRICULAR SYSTOLIC FUNCTION. 3) CALCIFIC AORTIC SCLEROSIS WITHOUT EVIDENCE OF ANY STENOSIS. 4) MODERATE MITRAL REGURGITATION. 5) TRACE TRICUSPID REGURGITATION. -does not appear to be in exacerbation - no edema on exam -Daily weights- monitor I&O's -watch for fluid overload -cxr -BNP -Hold lasix due to BETYT -continue Imdur/coreg Continue afterload control with blood pressure Code(s): I50.9 - HEART FAILURE, UNSPECIFIED (11) Diabetes mellitus Current Visit: No Status: Chronic Qualifiers: Assessment & Plan: -ADA diet -SSI -A1c Code(s): E11.9 - TYPE 2 DIABETES MELLITUS WITHOUT COMPLICATIONS (12) Hyponatremia Current Visit: Yes Status: Acute Assessment & Plan: -NS at 75ml/hr -serum osmo, TSH, lipid -urine sodium , urine osmo Code(s): E87.1 - HYPO-OSMOLALITY AND HYPONATREMIA (13) Incontinence associated dermatitis Current Visit: Yes Status: Acute Assessment & Plan: -Turn q2h -purewick -barrier cream Code(s): L25.8 - UNSPECIFIED CONTACT DERMATITIS DUE TO OTHER AGENTS; R32 - UNSPECIFIED URINARY INCONTINENCE (14) Pressure ulcer, stage 1 Current Visit: Yes Status: Acute Assessment & Plan: -see incontinence dermatitis- pictures in chart Code(s): L89.91 - PRESSURE ULCER OF UNSPECIFIED SITE, STAGE 1 (15) HLD (hyperlipidemia) Current Visit: Yes Status: Acute Assessment & Plan: -continue statin VTE: Heparin Dispo: 1-2 days Code Status: full code Code(s): E78.5 - HYPERLIPIDEMIA, UNSPECIFIED Telemedicine Encounter - Telemedicine Encounter Telemedicine Encounter: "The entirety of this encounter was performed via Telemedicine" This visit was performed using real-time audio and video connection between my location and thepatients locationwith the assistance of a surrogateat the patients location. Written or verbal consent was obtained from the patient/guardian to perform this visit usingsynchronoustelemedicine technology. Any patient questions regarding the telemedicine interaction were answered.
[2024-03-21] MEDS: SODIUM BICARBONATE PO SCH (15:49)
[2024-03-21] MEDS: Sodium Chloride 0.9% 1000 ML 1,000 ML IV SCH (15:49)
[2024-03-21] MEDS: Klor Con PO SCH (15:49)
[2024-03-21] MEDS: Apresoline 25 MG TABLET PO SCH (15:50)
[2024-03-21] MEDS: NEURONTIN PO SCH ×2 (16:05→21:19)
[2024-03-21] MEDS: PHARMACY RENAL DOSING MC ONE (16:05)
[2024-03-21] MEDS: Piperacillin/Tazobactam 2.25 GM 2.25 GM in Sodium Chloride 100ML MINI-BAG PLUS 100 ML IV SCH (17:44)
[2024-03-21] MEDS: HUMALOG SQ PRN (18:04)
[2024-03-21] MEDS: HEPARIN 5000 UNITS/0.5 ML (HIGH RISK MED) SQ SCH (21:19)
[2024-03-21] MEDS: FEOSOL 325 MG PO SCH (21:19)
[2024-03-21] MEDS: Zocor 10MG PO SCH (21:20)
[2024-03-21] MEDS: COREG 12.5 MG PO SCH (21:20)
[2024-03-21] MEDS ORDERED: ZYLOPRIM 100 MG PO SCH (22:00)
--- NOTE | 2024-03-21 23:18 | XRAY ---
Indication: Short of breath. Comparison: April 22, 2023 AP/lateral chest obtained. Lateral limited by suboptimal positioning and respiration. Heart now enlarged. Lungs demonstrates new small left effusion. Stable right infrahilar infiltrate/atelectasis. Bony thorax intact again with osteopenia, degenerative changes, and lumbar levoscoliosis. New left dual-lead pacemaker. Impression: Limited chest. New cardiomegaly with small left effusion, possible mild/early CHF. Superimposed pneumonia not completely excluded.
--- NOTE | 2024-03-21 23:29 | XRAY ---
Indication: Acute kidney injury. Two-dimensional renal sonogram performed. Comparison: August 29, 2022 Again both kidneys are normal in reniform shape with normal color perfusion. Right kidney measures 9.6 x 4.5 x 4.8 cm and left measures 11.0 x 4.4 x 4.9 cm. 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 Right kidney demonstrates a few cortical cysts, largest 1.2 cm. No focal solid renal mass or hydronephrosis. Corticomedullary differentiation preserved. Minimally distended urinary bladder is grossly unremarkable. Ureteral jets not seen within the allotted exam time. Impression: Stable right renal angiomyolipoma. Incidental small right renal cyst. Remaining renal sonogram negative.
[2024-03-22] MEDS: NORCO 5/325 MG PO PRN (00:48)
[2024-03-22 04:46] LABS: Hematocrit 22.9 % (34.1-44.9); Hemoglobin 7.7 g/dL (11.2-15.7); Mean Cell Volume 95.4 fL (79.4-94.8); Mean Corpuscular Hemoglobin 32.1 pg (25.6-32.2); Mean Corpuscular Hgb Concent. 33.6 g/dL (32.2-35.5); Mean Platelet Volume 10.1 fL (9.4-12.3); Platelet Count 117 x10^3/uL (182-369); Red Cell Distribution Width 16.9 % (11.7-14.4); White Blood Count 10.6 x10^3/uL (3.98-10.04)
[2024-03-22 05:00] LABS: ALBUMIN 2.7 g/dL (3.5-5.0); BILIRUBIN,TOTAL 0.6 mg/dL (0.2-1.3); Calcium 7.9 mg/dL (8.4-10.2); Creatinine 1 2.57 mg/dL (0.52-1.04); EST GLOMERULAR FILTRATION RATE 18.2 ML/MIN; MAGNESIUM 2.1 mg/dL (1.6-2.3); Potassium 3.5 mmol/L (3.5-5.1); Total Protein 5.5 g/dL (6.3-8.2)
--- NOTE | 2024-03-22 05:25 | PCM.NOTE ---
Date and Time: 03/22/24520 Subjective Assessment: is a 83 year old female hypertension, CKD, RA, stage III, DM2, lupus, Sjogren's, sick sinus syndrome,recurrent UTI's, anemia, CHF, and peripheral neuropathy who presented to ED 03/21/24 with complaints of dysuria, frequency, subjective fevers, nausea, and vomiting for the past week. 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 Lopez. She denies hematuria or flank pain. Patient is incontinent with multiple areas of dermatitis on her buttocks. She also reports a poor appetite and energy level, shortness of breath with exertion, and occasional constipation. Denies cp, abdominal pain, BECERRA, or diarrhea. Upon exam patient is euvolemic with clear lung sounds on auscultation. Upon presentation patient hypertensive. Lab findings remarkable for leukocytosis at 12.0, hyponatremia at 130, hypokalemia at 3.3, acidosis with co2 at 18, BETTY with BUN at 71, and creat 2.73 (baseline 1.3-1.8). UA with positive nitrites and leukocytes. Patient given 500ml fluid bolus and ceftriaxone in ED. Admit for UTI and Acute on chronic kidney disease. 03/22/24: Patient feeling much better today. No further Dysuria. Appetite improving. Still feeling weak. Ucult with gram negative ID. Plan to continue abx until culture results are back. BETTY improving. - Review of Systems Constitutional: Weakness Eyes: No Symptoms Ears, Nose, & Throat: No Symptoms Respiratory: No Symptoms Cardiac: No Symptoms Abdominal/Gastrointestinal: No Symptoms Genitourinary Symptoms: No Symptoms Musculoskeletal: Back Pain (chronic) Skin: Other (Stage 1 pressure ulcer ) Neurological: No Symptoms Psychological: No Symptoms Endocrine: No Symptoms Hematologic/Lymphatic: No Symptoms Immunological/Allergic: No Symptoms Objective Exam General Appearance: no apparent distress Neurologic Exam: alert, oriented x 3, cooperative Skin Exam: pale Wound Assessment: Skin/Wound Assessment Wound/Incision Assessment Start: 03/21/24 14:08 Text: Status: Active Freq: Q6H Protocol: Document 03/21/24 18:00 RF (Rec: 03/21/24 18:41 RF [id number]) Wound/Incision Assessment Medial Buttock Wound Assessment Shift Assessment Wound Type Pressure Ulcer Wound Stage Stage I Dressing Status Dry & Intact Drainage Amount None General Appearance Clean/Dry Wound Bed Greatest Portion Red (Granulation) Surrounding Tissue [place],Purple Topical Solution/Irrigant Medicated Ointment Primary Dressing mepilex Wound Photo Photo Taken No Comment: photos taken on admission Eye Exam: PERRL Ears, Nose, Throat Exam: normal ENT inspection Neck Exam: normal inspection Respiratory Exam: normal breath sounds, lungs clear Cardiovascular Exam: regular rate/rhythm, normal heart sounds Gastrointestinal/Abdomen Exam: soft, normal bowel sounds Extremity Exam: other (scattered bruising to BUE -chronic) Back Exam: normal inspection Pelvic Exam: deferred Rectal Exam: deferred Objective Data Vital Signs: Vital Signs - 24 hr Temp Pulse Resp BP BP Pulse Ox 03/22/24 04:00 97.6 F 81 18 176/76 95 03/21/24 23:33 97.8 F 78 18 192/77 94 L 03/21/24 19:27 97.3 F 81 18 147/67 95 03/21/24 16:00 97.7 F 72 18 181/72 95 03/21/24 13:35 98.2 F 79 18 180/80 96 03/21/24 13:32 98.2 F 79 20 180/80 96 03/21/24 13:00 75 21 147/71 95 03/21/24 12:31 75 16 173/63 92 L 03/21/24 12:24 97 03/21/24 12:00 76 19 172/76 93 L 03/21/24 11:30 91 H 16 163/83 94 L 03/21/24 10:30 66 16 174/73 93 L 03/21/24 10:22 97.8 F 68 20 178/68 97 Pain Assessment - Last Documented Pain Intensity 6 Pain Scale Used 0-10 Pain Scale Intake and Output: Intake & Output 03/19/24 03/20/24 03/21/24 03/22/24 11:59 11:59 11:59 11:59 Intake Total 1176 Balance 1176 Weight 71.9 kg 71 kg Lab Results: Lab Results-Last 24 Hours 03/21/24 03/21/24 03/21/24 Range/Units 10:42 10:50 10:50 WBC 12.0 H (3.98-10.04) x10^3/uL RBC 2.89 L (3.93-5.22) x10^6/uL Hgb 9.1 L (11.2-15.7) g/dL Hct 28.4 L (34.1-44.9) % MCV 98.3 H (79.4-94.8) fL MCH 31.5 (25.6-32.2) pg MCHC 32.0 L (32.2-35.5) g/dL RDW 17.2 H (11.7-14.4) % Plt Count 129 L (182-369) x10^3/uL MPV 10.1 (9.4-12.3) fL Segmented Neutrophils 63 (34.0-71.1) % Band Neutrophils 3 H (0.0-2.0) % Lymphocytes (Manual) 22 (19.3-51.7) % Monocytes (Manual) 6 (4.7-12.5) % Metamyelocytes 4 % Myelocytes 2 % Platelet Estimate DECREASED (NORMAL) RBC Morphology ABNORMAL Polychromasia 1+ Anisocytosis 2+ Smear Path Review Pending Sodium (135-145) mmol/L Potassium (3.5-5.1) mmol/L Chloride (98-107) mmol/L Carbon Dioxide (22-30) mmol/L Anion Gap (5-15) MEQ/L BUN (7-17) mg/dL Creatinine (0.52-1.04) mg/dL Estimated GFR ML/MIN Glucose (74-106) mg/dL POC Glucometer (74 to 106) mg/dL Hemoglobin A1c (4.5-6.0) % Lactic Acid 0.9 (0.4-2.0) Calcium (8.4-10.2) mg/dL Magnesium (1.6-2.3) mg/dL Total Bilirubin (0.2-1.3) mg/dL AST (14-36) U/L ALT (0-35) U/L Alkaline Phosphatase (38-126) U/L NT-Pro-B Natriuret Pep (<300) pg/mL Serum Total Protein (6.3-8.2) g/dL Albumin (3.5-5.0) g/dL Lipase (23-300) U/L Urine Color Yellow (Yellow) Urine Appearance Turbid A (Clear) Urine pH 5.5 (4.6-8.0) Ur Specific [place] 1.010 (1.005-1.030) Urine Protein 100 A (Negative) Urine Glucose (UA) Negative (Negative) mg/dL Urine Ketones Negative (Negative) Urine Blood Negative (Negative) Urine Nitrite Positive A (Negative) Urine Bilirubin Negative (Negative) Urine Urobilinogen 0.2 (0.2) mg/dL Ur Leukocyte Esterase Large A (Negative) Urine Microscopic RBC 3-5 (0-5) /HPF Urine Microscopic WBC >100 A (0-5) /HPF Ur Epithelial Cells Rare (None Seen) /HPF Urine Bacteria Rare A (None Seen) /HPF Urine Culture Reflexed YES (NO) 03/21/24 03/21/24 03/21/24 Range/Units 10:50 10:50 10:50 WBC (3.98-10.04) x10^3/uL RBC (3.93-5.22) x10^6/uL Hgb (11.2-15.7) g/dL Hct (34.1-44.9) % MCV (79.4-94.8) fL MCH (25.6-32.2) pg MCHC (32.2-35.5) g/dL RDW (11.7-14.4) % Plt Count (182-369) x10^3/uL MPV (9.4-12.3) fL Segmented Neutrophils (34.0-71.1) % Band Neutrophils (0.0-2.0) % Lymphocytes (Manual) (19.3-51.7) % Monocytes (Manual) (4.7-12.5) % Metamyelocytes % Myelocytes % Platelet Estimate (NORMAL) RBC Morphology Polychromasia Anisocytosis Smear Path Review Sodium 130 L (135-145) mmol/L Potassium 3.3 L (3.5-5.1) mmol/L Chloride 100 (98-107) mmol/L Carbon Dioxide 18 L (22-30) mmol/L Anion Gap 14.7 (5-15) MEQ/L BUN 71 H (7-17) mg/dL Creatinine 2.73 H (0.52-1.04) mg/dL Estimated GFR 17.0 ML/MIN Glucose 182 H (74-106) mg/dL POC Glucometer (74 to 106) mg/dL Hemoglobin A1c (4.5-6.0) % Lactic Acid (0.4-2.0) Calcium 8.7 (8.4-10.2) mg/dL Magnesium 2.3 (1.6-2.3) mg/dL Total Bilirubin 0.80 (0.2-1.3) mg/dL AST 26 (14-36) U/L ALT 24 (0-35) U/L Alkaline Phosphatase 66 (38-126) U/L NT-Pro-B Natriuret Pep 69438 (<300) pg/mL Serum Total Protein 6.1 L (6.3-8.2) g/dL Albumin 3.4 L (3.5-5.0) g/dL Lipase 135 (23-300) U/L Urine Color (Yellow) Urine Appearance (Clear) Urine pH (4.6-8.0) Ur Specific [place] (1.005-1.030) Urine Protein (Negative) Urine Glucose (UA) (Negative) mg/dL Urine Ketones (Negative) Urine Blood (Negative) Urine Nitrite (Negative) Urine Bilirubin (Negative) Urine Urobilinogen (0.2) mg/dL Ur Leukocyte Esterase (Negative) Urine Microscopic RBC (0-5) /HPF Urine Microscopic WBC (0-5) /HPF Ur Epithelial Cells (None Seen) /HPF Urine Bacteria (None Seen) /HPF Urine Culture Reflexed (NO) 03/21/24 03/21/24 03/21/24 Range/Units 10:50 16:50 18:03 WBC (3.98-10.04) x10^3/uL RBC (3.93-5.22) x10^6/uL Hgb (11.2-15.7) g/dL Hct (34.1-44.9) % MCV (79.4-94.8) fL MCH (25.6-32.2) pg MCHC (32.2-35.5) g/dL RDW (11.7-14.4) % Plt Count (182-369) x10^3/uL MPV (9.4-12.3) fL Segmented Neutrophils (34.0-71.1) % Band Neutrophils (0.0-2.0) % Lymphocytes (Manual) (19.3-51.7) % Monocytes (Manual) (4.7-12.5) % Metamyelocytes % Myelocytes % Platelet Estimate (NORMAL) RBC Morphology Polychromasia Anisocytosis Smear Path Review Sodium (135-145) mmol/L Potassium 3.4 L (3.5-5.1) mmol/L Chloride (98-107) mmol/L Carbon Dioxide (22-30) mmol/L Anion Gap (5-15) MEQ/L BUN (7-17) mg/dL Creatinine (0.52-1.04) mg/dL Estimated GFR ML/MIN Glucose (74-106) mg/dL POC Glucometer 313 H (74 to 106) mg/dL Hemoglobin A1c 6.38 H (4.5-6.0) % Lactic Acid (0.4-2.0) Calcium (8.4-10.2) mg/dL Magnesium (1.6-2.3) mg/dL Total Bilirubin (0.2-1.3) mg/dL AST (14-36) U/L ALT (0-35) U/L Alkaline Phosphatase (38-126) U/L NT-Pro-B Natriuret Pep (<300) pg/mL Serum Total Protein (6.3-8.2) g/dL Albumin (3.5-5.0) g/dL Lipase (23-300) U/L Urine Color (Yellow) Urine Appearance (Clear) Urine pH (4.6-8.0) Ur Specific [place] (1.005-1.030) Urine Protein (Negative) Urine Glucose (UA) (Negative) mg/dL Urine Ketones (Negative) Urine Blood (Negative) Urine Nitrite (Negative) Urine Bilirubin (Negative) Urine Urobilinogen (0.2) mg/dL Ur Leukocyte Esterase (Negative) Urine Microscopic RBC (0-5) /HPF Urine Microscopic WBC (0-5) /HPF Ur Epithelial Cells (None Seen) /HPF Urine Bacteria (None Seen) /HPF Urine Culture Reflexed (NO) 03/21/24 03/21/24 03/22/24 Range/Units 21:22 22:20 04:44 WBC 10.6 H (3.98-10.04) x10^3/uL RBC 2.40 L (3.93-5.22) x10^6/uL Hgb 7.7 L (11.2-15.7) g/dL Hct 22.9 L (34.1-44.9) % MCV 95.4 H (79.4-94.8) fL MCH 32.1 (25.6-32.2) pg MCHC 33.6 (32.2-35.5) g/dL RDW 16.9 H (11.7-14.4) % Plt Count 117 L (182-369) x10^3/uL MPV 10.1 (9.4-12.3) fL Segmented Neutrophils (34.0-71.1) % Band Neutrophils (0.0-2.0) % Lymphocytes (Manual) (19.3-51.7) % Monocytes (Manual) (4.7-12.5) % Metamyelocytes % Myelocytes % Platelet Estimate (NORMAL) RBC Morphology Polychromasia Anisocytosis Smear Path Review Sodium (135-145) mmol/L Potassium 3.7 (3.5-5.1) mmol/L Chloride (98-107) mmol/L Carbon Dioxide (22-30) mmol/L Anion Gap (5-15) MEQ/L BUN (7-17) mg/dL Creatinine (0.52-1.04) mg/dL Estimated GFR ML/MIN Glucose (74-106) mg/dL POC Glucometer 290 H (74 to 106) mg/dL Hemoglobin A1c (4.5-6.0) % Lactic Acid (0.4-2.0) Calcium (8.4-10.2) mg/dL Magnesium (1.6-2.3) mg/dL Total Bilirubin (0.2-1.3) mg/dL AST (14-36) U/L ALT (0-35) U/L Alkaline Phosphatase (38-126) U/L NT-Pro-B Natriuret Pep (<300) pg/mL Serum Total Protein (6.3-8.2) g/dL Albumin (3.5-5.0) g/dL Lipase (23-300) U/L Urine Color (Yellow) Urine Appearance (Clear) Urine pH (4.6-8.0) Ur Specific [place] (1.005-1.030) Urine Protein (Negative) Urine Glucose (UA) (Negative) mg/dL Urine Ketones (Negative) Urine Blood (Negative) Urine Nitrite (Negative) Urine Bilirubin (Negative) Urine Urobilinogen (0.2) mg/dL Ur Leukocyte Esterase (Negative) Urine Microscopic RBC (0-5) /HPF Urine Microscopic WBC (0-5) /HPF Ur Epithelial Cells (None Seen) /HPF Urine Bacteria (None Seen) /HPF Urine Culture Reflexed (NO) 03/22/24 Range/Units 04:44 WBC (3.98-10.04) x10^3/uL RBC (3.93-5.22) x10^6/uL Hgb (11.2-15.7) g/dL Hct (34.1-44.9) % MCV (79.4-94.8) fL MCH (25.6-32.2) pg MCHC (32.2-35.5) g/dL RDW (11.7-14.4) % Plt Count (182-369) x10^3/uL MPV (9.4-12.3) fL Segmented Neutrophils (34.0-71.1) % Band Neutrophils (0.0-2.0) % Lymphocytes (Manual) (19.3-51.7) % Monocytes (Manual) (4.7-12.5) % Metamyelocytes % Myelocytes % Platelet Estimate (NORMAL) RBC Morphology Polychromasia Anisocytosis Smear Path Review Sodium 134 L (135-145) mmol/L Potassium 3.5 (3.5-5.1) mmol/L Chloride 104 (98-107) mmol/L Carbon Dioxide 22 (22-30) mmol/L Anion Gap 11.0 (5-15) MEQ/L BUN 67 H (7-17) mg/dL Creatinine 2.57 H (0.52-1.04) mg/dL Estimated GFR 18.2 ML/MIN Glucose 65 L (74-106) mg/dL POC Glucometer (74 to 106) mg/dL Hemoglobin A1c (4.5-6.0) % Lactic Acid (0.4-2.0) Calcium 7.9 L (8.4-10.2) mg/dL Magnesium 2.1 (1.6-2.3) mg/dL Total Bilirubin 0.60 (0.2-1.3) mg/dL AST 25 (14-36) U/L ALT 19 (0-35) U/L Alkaline Phosphatase 55 (38-126) U/L NT-Pro-B Natriuret Pep (<300) pg/mL Serum Total Protein 5.5 L (6.3-8.2) g/dL Albumin 2.7 L (3.5-5.0) g/dL Lipase (23-300) U/L Urine Color (Yellow) Urine Appearance (Clear) Urine pH (4.6-8.0) Ur Specific [place] (1.005-1.030) Urine Protein (Negative) Urine Glucose (UA) (Negative) mg/dL Urine Ketones (Negative) Urine Blood (Negative) Urine Nitrite (Negative) Urine Bilirubin (Negative) Urine Urobilinogen (0.2) mg/dL Ur Leukocyte Esterase (Negative) Urine Microscopic RBC (0-5) /HPF Urine Microscopic WBC (0-5) /HPF Ur Epithelial Cells (None Seen) /HPF Urine Bacteria (None Seen) /HPF Urine Culture Reflexed (NO) Radiology Exams: Radiology Procedures Category Date Time Status CHEST 2 VIEWS (PA AND LAT) Routine Exams 03/21/24 14:21 Completed KIDNEY [US] Stat Exams 03/21/24 14:32 Completed Multi-Disciplinary Progress Notes: Multi-Disciplinary Progress Notes 03/21/24 16:14 Occupational Therapy Note by Elena (L#[id number])[facility] OT will hold evaluation this date following chart review and discussion with physical therapist. Per chart review, patient presents with significant fatigue, leukocytosis, hyponatremia, hypokalemia, acidosis, and BETTY; undergoing multiple testing/imaging. Per PTElsa, patient declines to participate in evaluation due to the continued testing and fatigue of the day. Chetna also participated in outpatient imaging this morning before hospitalization. OT will follow up as appropriate. Initialized on 03/21/24 16:14 - END OF NOTE 03/21/24 15:17 Pharmacy Note by Nicolás Alcantar Renal dosing: Estimated crcl is 14ml/min. Zosyn dosed at 2.25gm iv q8h. Lowered Gabapentin to 300mg po bid and Zyloprim 50mg daily. Initialized on 03/21/24 15:17 - END OF NOTE Assessment/Plan (1) Acute UTI (urinary tract infection) Current Visit: Yes Status: Acute Assessment & Plan: -UA suspicious for UTI - Previous cultures reviewed as patient has had recurrent infections - most recently with [facility] - multiple UTIs since December with recent treatment with cefpodoxime- recent cultures resistant to levaquin/bactrim - received ceftriaxone in ED - will continue with Zosyn- follow cultures -gram negative ID - Code(s): N39.0 - URINARY TRACT INFECTION, SITE NOT SPECIFIED (2) Acute kidney injury superimposed on CKD Current Visit: Yes Status: Acute Assessment & Plan: -Patient of Dr. Lopez -baseline creat 1.3-1.8 -Urine sodium, creat, and urea nitrogen -check FEUrea when urine sodium, urea nitrogen, and creat available - patient on diurectics -IVF @ 75ml/hr in the setting of CHF- monitor for fluid overload -strict I&O's -renal US -Avoid nephrotoxic agents - contrast -monitor renal/lytes closely 03/22: -pharmacy renally dosing meds -Creat improved 2.57<2.73 Code(s): N17.9 - ACUTE KIDNEY FAILURE, UNSPECIFIED; N18.9 - CHRONIC KIDNEY DISEASE, UNSPECIFIED (3) Hypokalemia Current Visit: Yes Status: Acute Assessment & Plan: -Replenish per protocol - recheck 2 hours after final dose -tele 03/22: -resolved Code(s): E87.6 - HYPOKALEMIA (4) Metabolic acidosis Current Visit: Yes Status: Acute Assessment & Plan: -sodium bicarb po 03/22: -resolved Code(s): E87.20 - ACIDOSIS, UNSPECIFIED (5) Chronic anemia Current Visit: Yes Status: Acute Assessment & Plan: -Hgb at 7.7 -macrocytic -iron profile - with iron sat at 45% -transfuse if hgb < 7 -Continue ferrous sulfate Code(s): D64.9 - ANEMIA, UNSPECIFIED (6) Lupus Current Visit: Yes Status: Acute Code(s): [id number] - -Follows with Dr. Webb OP (7) Sick sinus syndrome Current Visit: Yes Status: Acute Assessment & Plan: -noted with pacemaker Code(s): I49.5 - SICK SINUS SYNDROME Metabolic Acidosis -Sodium bicarb po (8) HTN (hypertension) Current Visit: Yes Status: Acute Assessment & Plan: -stable - continue home meds coreg, hydralazine TID dosing, add amlodipine, - hold lisinopril due to BETTY Code(s): I10 - ESSENTIAL (PRIMARY) HYPERTENSION (9) Sjogren syndrome Current Visit: Yes Status: Acute Assessment & Plan: -continue home meds Code(s): M35.00 - SJOGREN SYNDROME, UNSPECIFIED (10) CHF (congestive heart failure) Current Visit: Yes Status: Acute Assessment & Plan: -Echo performed today - pending -Echo from 12/07/22 reviewed EF 50-55% IMPRESSION: 1) MILD TO MODERATE ASYMMETRIC LEFT VENTRICULAR HYPERTROPHY WITHOUT EVIDENCE OF LEFT VENTRICULAR OUTFLOW TRACT OBSTRUCTION. 2) LOW NORMAL LEFT VENTRICULAR SYSTOLIC FUNCTION. 3) CALCIFIC AORTIC SCLEROSIS WITHOUT EVIDENCE OF ANY STENOSIS. 4) MODERATE MITRAL REGURGITATION. 5) TRACE TRICUSPID REGURGITATION. -does not appear to be in exacerbation - no edema on exam -Daily weights- monitor I&O's -watch for fluid overload -cxr -BNP -Hold lasix due to BETTY -continue Imdur/coreg Continue afterload control with blood pressure Code(s): I50.9 - HEART FAILURE, UNSPECIFIED (11) Diabetes mellitus Current Visit: No Status: Chronic Qualifiers: Assessment & Plan: -ADA diet -SSI -A1c 6.38 Code(s): E11.9 - TYPE 2 DIABETES MELLITUS WITHOUT COMPLICATIONS (12) Hyponatremia Current Visit: Yes Status: Acute Assessment & Plan: -NS at 75ml/hr -serum osmo, TSH, lipid -urine sodium , urine osmo 03/22: -Resolving - now at 134 Code(s): E87.1 - HYPO-OSMOLALITY AND HYPONATREMIA (13) Incontinence associated dermatitis Current Visit: Yes Status: Acute Assessment & Plan: -Turn q2h -purewick -barrier cream Code(s): L25.8 - UNSPECIFIED CONTACT DERMATITIS DUE TO OTHER AGENTS; R32 - UNSPECIFIED URINARY INCONTINENCE (14) Pressure ulcer, stage 1 Current Visit: Yes Status: Acute Assessment & Plan: -see incontinence dermatitis- pictures in chart Code(s): L89.91 - PRESSURE ULCER OF UNSPECIFIED SITE, STAGE 1 (15) HLD (hyperlipidemia) Current Visit: Yes Status: Acute Assessment & Plan: -continue statin VTE: Heparin Dispo: 1-2 days Code Status: full code Code(s): N39.0 - URINARY TRACT INFECTION, SITE NOT SPECIFIED (2) Acute kidney injury superimposed on CKD Current Visit: Yes Status: Acute Code(s): N17.9 - ACUTE KIDNEY FAILURE, UNSPECIFIED; N18.9 - CHRONIC KIDNEY DISEASE, UNSPECIFIED (3) Hypokalemia Current Visit: Yes Status: Acute Code(s): E87.6 - HYPOKALEMIA (4) Metabolic acidosis Current Visit: Yes Status: Acute Code(s): E87.20 - ACIDOSIS, UNSPECIFIED (5) Chronic anemia Current Visit: Yes Status: Acute Code(s): D64.9 - ANEMIA, UNSPECIFIED (6) Lupus Current Visit: Yes Status: Acute Code(s): [id number] - (7) Sick sinus syndrome Current Visit: Yes Status: Acute Code(s): I49.5 - SICK SINUS SYNDROME (8) HTN (hypertension) Current Visit: Yes Status: Acute Code(s): I10 - ESSENTIAL (PRIMARY) HYPERTENSION (9) Sjogren syndrome Current Visit: Yes Status: Acute Code(s): M35.00 - SJOGREN SYNDROME, UNSPECIFIED (10) CHF (congestive heart failure) Current Visit: Yes Status: Acute Code(s): I50.9 - HEART FAILURE, UNSPECIFIED (11) Diabetes mellitus Current Visit: No Status: Chronic Qualifiers: Code(s): E11.9 - TYPE 2 DIABETES MELLITUS WITHOUT COMPLICATIONS (12) Hyponatremia Current Visit: Yes Status: Acute Code(s): E87.1 - HYPO-OSMOLALITY AND HYPONATREMIA (13) Incontinence associated dermatitis Current Visit: Yes Status: Acute Code(s): L25.8 - UNSPECIFIED CONTACT DERMATITIS DUE TO OTHER AGENTS; R32 - UNSPECIFIED URINARY INCONTINENCE (14) Pressure ulcer, stage 1 Current Visit: Yes Status: Acute Code(s): L89.91 - PRESSURE ULCER OF UNSPECIFIED SITE, STAGE 1 (15) HLD (hyperlipidemia) Current Visit: Yes Status: Acute Code(s): E78.5 - HYPERLIPIDEMIA, UNSPECIFIED (16) Metabolic acidosis Current Visit: Yes Status: Acute Code(s): E87.20 - ACIDOSIS, UNSPECIFIED
[2024-03-22 05:38] LABS: BAND 11 % (0.0-2.0); Basophil 1 % (0.1-1.2); Lymphocytes 23 % (19.3-51.7); Monocyte 14 % (4.7-12.5); Neutrophils 51 % (34.0-71.1); Nucleated Red Blood Cell 1 %; Total Cells Counted 100
[2024-03-22 05:39] LABS: ANISOCYTOSIS 1+; Platelet Estimate DECREASED (NORMAL); Polychromasia 1+
[2024-03-22 07:43] LABS: Iron 99 ug/dL (37-170); Iron Saturation 45 % (20-39); TIBC 221 ug/dL (265-462)
[2024-03-22 08:41] LABS: Folate (Folic Acid) > 20.0 ng/mL (2.76 - >20)
[2024-03-22] MEDS ORDERED: NON-FORMULARY ITEM (Hydralazine Hcl [Hydralazine Hcl] 50 MG Tablet) PO SCH (10:00)
[2024-03-22] MEDS: Imdur 60MG PO SCH (10:30)
[2024-03-22] MEDS: MEDROL 4 MG PO SCH (10:30)
[2024-03-22] MEDS: ZYLOPRIM 100 MG PO SCH (10:30)
[2024-03-22] MEDS: ECOTRIN 81 MG PO SCH (10:31)
[2024-03-22] MEDS: FOLATE 1 MG PO SCH (10:31)
[2024-03-22] MEDS: NORVASC 5 MG PO SCH (10:31)
[2024-03-22 11:18] LABS: Ferritin 346 ng/mL (11.1-264); Vitamin B12 857 pg/mL (239-931)
[2024-03-22] MEDS: TYLENOL 325 MG PO PRN (15:12)
[2024-03-23 04:55] LABS: CREATININE,URINE RANDOM 67.1 MG/DL
[2024-03-23 06:19] LABS: Hematocrit 21.9 % (34.1-44.9); Hemoglobin 7.2 g/dL (11.2-15.7); Mean Cell Volume 96.9 fL (79.4-94.8); Mean Corpuscular Hemoglobin 31.9 pg (25.6-32.2); Mean Corpuscular Hgb Concent. 32.9 g/dL (32.2-35.5); Mean Platelet Volume 10.2 fL (9.4-12.3); Platelet Count 113 x10^3/uL (182-369); Red Blood Count 2.26 x10^6/uL (3.93-5.22); Red Cell Distribution Width 17.3 % (11.7-14.4); White Blood Count 9.6 x10^3/uL (3.98-10.04)
[2024-03-23 06:35] LABS: ALBUMIN 2.5 g/dL (3.5-5.0); ANION GAP 11.6 MEQ/L (5-15); BILIRUBIN,TOTAL 0.6 mg/dL (0.2-1.3); Calcium 7.7 mg/dL (8.4-10.2); Creatinine 1 2.31 mg/dL (0.52-1.04); EST GLOMERULAR FILTRATION RATE 20.7 ML/MIN; Potassium 3.4 mmol/L (3.5-5.1); Total Protein 5.1 g/dL (6.3-8.2)
[2024-03-23 07:22] LABS: BAND 8 % (0.0-2.0); Lymphocytes 24 % (19.3-51.7); Metamyelocyte 5 %; Monocyte 13 % (4.7-12.5); Neutrophils 47 % (34.0-71.1); Promyelocyte 3 %; Total Cells Counted 100
[2024-03-23 07:23] LABS: ANISOCYTOSIS 1+; Hypochromia 1+; Poikilocytosis 1+; Polychromasia 1+
[2024-03-23 07:24] LABS: Spherocyte 1+
[2024-03-23 07:25] LABS: Platelet Estimate NORMAL (NORMAL)
--- NOTE | 2024-03-23 09:57 | PCM.NOTE ---
Date and Time: 03/23/24 0952 Subjective Assessment: is a 83 year old female hypertension, CKD, RA, stage III, DM2, lupus, Sjogren's, sick sinus syndrome,recurrent UTI's, anemia, CHF, and peripheral neuropathy who presented to ED 03/21/24 with complaints of dysuria, frequency, subjective fevers, nausea, and vomiting for the past week. 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 Lopez. She denies hematuria or flank pain. Patient is incontinent with multiple areas of dermatitis on her buttocks. She also reports a poor appetite and energy level, shortness of breath with exertion, and occasional constipation. Denies cp, abdominal pain, BECERRA, or diarrhea. Upon exam patient is euvolemic with clear lung sounds on auscultation. Upon presentation patient hypertensive. Lab findings remarkable for leukocytosis at 12.0, hyponatremia at 130, hypokalemia at 3.3, acidosis with co2 at 18, BETTY with BUN at 71, and creat 2.73 (baseline 1.3-1.8). UA with positive nitrites and leukocytes. Patient given 500ml fluid bolus and ceftriaxone in ED. Admit for UTI and Acute on chronic kidney disease. 03/22/24: Patient feeling much better today. No further Dysuria. Appetite improving. Still feeling weak. Ucult with gram negative ID. Plan to continue abx until culture results are back. BETTY improving. 03/23/24: Met with patient and at bedside. Patient febrile yesterday evening with tmax at 101.3. Continues to feel weak and mild dysuria this morning. Culture showing pseudomonas - Will change abx to levaquin. BP remains elevated despite increase of hydralazine and adding amlodipine. She is allergic to doxazosin. Lisinopril held with BETTY. Will add clonodine 0.1mg QHS. BETTY is improving. No edema, clear lung sounds noted on exam. Will continue fluids at 75ml/hr. - Review of Systems Constitutional: Weakness Eyes: No Symptoms Ears, Nose, & Throat: No Symptoms Respiratory: No Symptoms Cardiac: No Symptoms Abdominal/Gastrointestinal: No Symptoms Genitourinary Symptoms: Dysuria Musculoskeletal: No Symptoms Skin: Other (scattered ecchymosis BUE) Neurological: No Symptoms Psychological: No Symptoms Endocrine: No Symptoms Hematologic/Lymphatic: Anemia, Easy Bruising Immunological/Allergic: No Symptoms Objective Exam General Appearance: no apparent distress Neurologic Exam: alert, oriented x 3, cooperative Skin Exam: normal color Wound Assessment: Skin/Wound Assessment Wound/Incision Assessment Start: 03/21/24 14:08 Text: Status: Active Freq: Q6H Protocol: Document 03/23/24 02:00 MP (Rec: 03/23/24 03:43 MP [id number]) Wound/Incision Assessment Medial Buttock Wound Assessment Shift Assessment Dressing Status Dry & Intact Primary Dressing mepilex Wound Photo Photo Taken No Eye Exam: PERRL Ears, Nose, Throat Exam: normal ENT inspection Neck Exam: normal inspection Respiratory Exam: normal breath sounds, lungs clear Cardiovascular Exam: regular rate/rhythm, normal heart sounds Gastrointestinal/Abdomen Exam: soft, normal bowel sounds Extremity Exam: other (scattered ecchymosis BUE) Back Exam: normal inspection Pelvic Exam: deferred Rectal Exam: deferred Objective Data Vital Signs: Vital Signs - 24 hr Temp Pulse Resp BP Pulse Ox 03/23/24 08:00 97.8 F 70 18 189/83 93 L 03/23/24 04:00 97.7 F 78 18 158/65 96 03/22/24 23:59 97.6 F 83 18 167/70 95 03/22/24 20:00 97.8 F 74 22 177/77 96 03/22/24 16:00 100.7 F 79 17 164/79 94 L 03/22/24 15:16 101.3 F 03/22/24 12:00 99.8 F 77 18 172/71 93 L Pain Assessment - Last Documented Pain Intensity 2 Pain Scale Used 0-10 Pain Scale Intake and Output: Intake & Output 03/20/24 03/21/24 03/22/24 03/23/24 11:59 11:59 11:59 11:59 Intake Total 1776 2147 Output Total 850 Balance 926 2147 Weight 71.9 kg 70.9 kg 74.9 kg Lab Results: Lab Results-Last 24 Hours 03/21/24 03/22/24 03/22/24 Range/Units 04:40 06:55 10:59 WBC (3.98-10.04) x10^3/uL RBC (3.93-5.22) x10^6/uL Hgb (11.2-15.7) g/dL Hct (34.1-44.9) % MCV (79.4-94.8) fL MCH (25.6-32.2) pg MCHC (32.2-35.5) g/dL RDW (11.7-14.4) % Plt Count (182-369) x10^3/uL MPV (9.4-12.3) fL Segmented Neutrophils (34.0-71.1) % Band Neutrophils (0.0-2.0) % Lymphocytes (Manual) (19.3-51.7) % Monocytes (Manual) (4.7-12.5) % Metamyelocytes % Promyelocytes % Hypochromia Platelet Estimate (NORMAL) RBC Morphology Polychromasia Poikilocytosis Anisocytosis Spherocytes Smear Path Review Sodium (135-145) mmol/L Potassium (3.5-5.1) mmol/L Chloride (98-107) mmol/L Carbon Dioxide (22-30) mmol/L Anion Gap (5-15) MEQ/L BUN (7-17) mg/dL Creatinine (0.52-1.04) mg/dL Estimated GFR ML/MIN Glucose (74-106) mg/dL POC Glucometer 147 H (74 to 106) mg/dL Calcium (8.4-10.2) mg/dL Ferritin 346 H (11.1-264) ng/mL Total Bilirubin (0.2-1.3) mg/dL AST (14-36) U/L ALT (0-35) U/L Alkaline Phosphatase (38-126) U/L Serum Total Protein (6.3-8.2) g/dL Albumin (3.5-5.0) g/dL Vitamin B12 857 (239-931) pg/mL Folic Acid > 20.0 (2.76 - >20) ng/mL Ur Random Creatinine 67.1 MG/DL Urine Sodium 51 (30-90) mmol/L 03/22/24 03/22/24 03/23/24 Range/Units 16:24 21:34 05:56 WBC 9.6 (3.98-10.04) x10^3/uL RBC 2.26 L (3.93-5.22) x10^6/uL Hgb 7.2 L (11.2-15.7) g/dL Hct 21.9 L (34.1-44.9) % MCV 96.9 H (79.4-94.8) fL MCH 31.9 (25.6-32.2) pg MCHC 32.9 (32.2-35.5) g/dL RDW 17.3 H (11.7-14.4) % Plt Count 113 L (182-369) x10^3/uL MPV 10.2 (9.4-12.3) fL Segmented Neutrophils 47 (34.0-71.1) % Band Neutrophils 8 H (0.0-2.0) % Lymphocytes (Manual) 24 (19.3-51.7) % Monocytes (Manual) 13 H (4.7-12.5) % Metamyelocytes 5 % Promyelocytes 3 % Hypochromia 1+ Platelet Estimate NORMAL (NORMAL) RBC Morphology ABNORMAL Polychromasia 1+ Poikilocytosis 1+ Anisocytosis 1+ Spherocytes 1+ Smear Path Review Cancelled Sodium (135-145) mmol/L Potassium (3.5-5.1) mmol/L Chloride (98-107) mmol/L Carbon Dioxide (22-30) mmol/L Anion Gap (5-15) MEQ/L BUN (7-17) mg/dL Creatinine (0.52-1.04) mg/dL Estimated GFR ML/MIN Glucose (74-106) mg/dL POC Glucometer 202 H 234 H (74 to 106) mg/dL Calcium (8.4-10.2) mg/dL Ferritin (11.1-264) ng/mL Total Bilirubin (0.2-1.3) mg/dL AST (14-36) U/L ALT (0-35) U/L Alkaline Phosphatase (38-126) U/L Serum Total Protein (6.3-8.2) g/dL Albumin (3.5-5.0) g/dL Vitamin B12 (239-931) pg/mL Folic Acid (2.76 - >20) ng/mL Ur Random Creatinine MG/DL Urine Sodium (30-90) mmol/L 03/23/24 03/23/24 Range/Units 05:56 07:36 WBC (3.98-10.04) x10^3/uL RBC (3.93-5.22) x10^6/uL Hgb (11.2-15.7) g/dL Hct (34.1-44.9) % MCV (79.4-94.8) fL MCH (25.6-32.2) pg MCHC (32.2-35.5) g/dL RDW (11.7-14.4) % Plt Count (182-369) x10^3/uL MPV (9.4-12.3) fL Segmented Neutrophils (34.0-71.1) % Band Neutrophils (0.0-2.0) % Lymphocytes (Manual) (19.3-51.7) % Monocytes (Manual) (4.7-12.5) % Metamyelocytes % Promyelocytes % Hypochromia Platelet Estimate (NORMAL) RBC Morphology Polychromasia Poikilocytosis Anisocytosis Spherocytes Smear Path Review Sodium 137 (135-145) mmol/L Potassium 3.4 L (3.5-5.1) mmol/L Chloride 109 H (98-107) mmol/L Carbon Dioxide 19 L (22-30) mmol/L Anion Gap 11.6 (5-15) MEQ/L BUN 55 H (7-17) mg/dL Creatinine 2.31 H (0.52-1.04) mg/dL Estimated GFR 20.7 ML/MIN Glucose 108 H (74-106) mg/dL POC Glucometer 95 (74 to 106) mg/dL Calcium 7.7 L (8.4-10.2) mg/dL Ferritin (11.1-264) ng/mL Total Bilirubin 0.60 (0.2-1.3) mg/dL AST 26 (14-36) U/L ALT 20 (0-35) U/L Alkaline Phosphatase 55 (38-126) U/L Serum Total Protein 5.1 L (6.3-8.2) g/dL Albumin 2.5 L (3.5-5.0) g/dL Vitamin B12 (239-931) pg/mL Folic Acid (2.76 - >20) ng/mL Ur Random Creatinine MG/DL Urine Sodium (30-90) mmol/L Radiology Exams: Radiology Procedures Category Date Time Status CHEST 2 VIEWS (PA AND LAT) Routine Exams 03/21/24 14:21 Completed KIDNEY [US] Stat Exams 03/21/24 14:32 Completed Multi-Disciplinary Progress Notes: Multi-Disciplinary Progress Notes 03/23/24 08:01 Pharmacy Note by Nicolás Alcantar Levaquin dosinmg the first dose, then 500mg q48h. Initialized on 03/23/24 08:01 - END OF NOTE Assessment/Plan (1) Acute UTI (urinary tract infection) Current Visit: Yes Status: Acute Assessment & Plan: -UA suspicious for UTI - Previous cultures reviewed as patient has had recurrent infections - most recently with ECOLI - multiple UTIs since December with recent treatment with cefpodoxime- recent cultures resistant to levaquin/bactrim - received ceftriaxone in ED - will continue with Zosyn- follow cultures -gram negative ID - 03/23: culture with pseudomonas- abx changed to levaquin - renal dosed Code(s): N39.0 - URINARY TRACT INFECTION, SITE NOT SPECIFIED (2) Acute kidney injury superimposed on CKD Current Visit: Yes Status: Acute Assessment & Plan: -Patient of Dr. Lopez -baseline creat 1.3-1.8 -Urine sodium, creat, and urea nitrogen -check FEUrea when urine sodium, urea nitrogen, and creat available - patient on diurectics -IVF @ 75ml/hr in the setting of CHF- monitor for fluid overload -strict I&O's -renal US -Avoid nephrotoxic agents - contrast -monitor renal/lytes closely 03/22: -pharmacy renally dosing meds -Creat improved 2.57<2.73 03/23: -renal us with stable right renal angiomyolipoma. Incidental small right renal cyst. Remaining renal sonogram negative. -continue IVF -improveing 2.31<2.57<27.3 -continue to hold lisinopril -urine sodium normal -urine creat-normal -urine urea-pending Code(s): N17.9 - ACUTE KIDNEY FAILURE, UNSPECIFIED; N18.9 - CHRONIC KIDNEY DISEASE, UNSPECIFIED (3) Hypokalemia Current Visit: Yes Status: Acute Assessment & Plan: -Replenish per protocol - recheck 2 hours after final dose -tele 03/22: -resolved 03/23: -20 meq of potassium in the setting of BETTY- recheck 2 hours after administration Code(s): E87.6 - HYPOKALEMIA (4) Metabolic acidosis Current Visit: Yes Status: Acute Assessment & Plan: -sodium bicarb po 03/22: -resolved 03/23: -continue sodium bicarb Code(s): E87.20 - ACIDOSIS, UNSPECIFIED (5) Chronic anemia Current Visit: Yes Status: Acute Assessment & Plan: -Hgb at 7.2 -macrocytic -? decrease secondary to infection -occult stools -denies hematuria/melena -hold heparin - SCDs -iron profile - with iron sat at 45% -transfuse if hgb < 7 -Continue ferrous sulfate Code(s): D64.9 - ANEMIA, UNSPECIFIED (6) Lupus Current Visit: Yes Status: Acute Code(s): [id number] - -Follows with Dr. Webb OP (7) Sick sinus syndrome Current Visit: Yes Status: Acute Assessment & Plan: -noted with pacemaker Code(s): I49.5 - SICK SINUS SYNDROME (8) HTN (hypertension) Current Visit: Yes Status: Acute Assessment & Plan: -Remains elevated - continue home meds coreg, hydralazine TID dosing, add amlodipine, add clonodine 0.1mg QHS-hold lisinopril due to BETTY Code(s): I10 - ESSENTIAL (PRIMARY) HYPERTENSION (9) Sjogren syndrome Current Visit: Yes Status: Acute Assessment & Plan: -continue home meds Code(s): M35.00 - SJOGREN SYNDROME, UNSPECIFIED (10) CHF (congestive heart failure) Current Visit: Yes Status: Acute Assessment & Plan: -Echo performed today - pending -Echo from 12/07/22 reviewed EF 50-55% IMPRESSION: 1) MILD TO MODERATE ASYMMETRIC LEFT VENTRICULAR HYPERTROPHY WITHOUT EVIDENCE OF LEFT VENTRICULAR OUTFLOW TRACT OBSTRUCTION. 2) LOW NORMAL LEFT VENTRICULAR SYSTOLIC FUNCTION. 3) CALCIFIC AORTIC SCLEROSIS WITHOUT EVIDENCE OF ANY STENOSIS. 4) MODERATE MITRAL REGURGITATION. 5) TRACE TRICUSPID REGURGITATION. -does not appear to be in exacerbation - no edema on exam -Daily weights- monitor I&O's -watch for fluid overload -cxr -BNP -Hold lasix due to BETTY -continue Imdur/coreg Continue afterload control with blood pressure Code(s): I50.9 - HEART FAILURE, UNSPECIFIED (11) Diabetes mellitus Current Visit: No Status: Chronic Qualifiers: Assessment & Plan: -ADA diet -SSI -A1c 6.38 Code(s): E11.9 - TYPE 2 DIABETES MELLITUS WITHOUT COMPLICATIONS (12) Hyponatremia Current Visit: Yes Status: Acute Assessment & Plan: -NS at 75ml/hr -serum osmo, TSH, lipid -urine sodium , urine osmo 10/5: -Resolving - now at 134 10/6 -resolved Code(s): E87.1 - HYPO-OSMOLALITY AND HYPONATREMIA (13) Incontinence associated dermatitis Current Visit: Yes Status: Acute Assessment & Plan: -Turn q2h -purewick -barrier cream Code(s): L25.8 - UNSPECIFIED CONTACT DERMATITIS DUE TO OTHER AGENTS; R32 - UNSPECIFIED URINARY INCONTINENCE (14) Pressure ulcer, stage 1 Current Visit: Yes Status: Acute Assessment & Plan: -see incontinence dermatitis- pictures in chart Code(s): L89.91 - PRESSURE ULCER OF UNSPECIFIED SITE, STAGE 1 (15) HLD (hyperlipidemia) Current Visit: Yes Status: Acute Assessment & Plan: -continue statin VTE: Heparin d/c -bilateral SCD due to anemia Dispo: 1-2 days Code Status: full code Code(s): N39.0 - URINARY TRACT INFECTION, SITE NOT SPECIFIED (2) Acute kidney injury superimposed on CKD Current Visit: Yes Status: Acute Code(s): N17.9 - ACUTE KIDNEY FAILURE, UNSPECIFIED; N18.9 - CHRONIC KIDNEY DISEASE, UNSPECIFIED (3) Hypokalemia Current Visit: Yes Status: Acute Code(s): E87.6 - HYPOKALEMIA (4) Metabolic acidosis Current Visit: Yes Status: Acute Code(s): E87.20 - ACIDOSIS, UNSPECIFIED (5) Chronic anemia Current Visit: Yes Status: Acute Code(s): D64.9 - ANEMIA, UNSPECIFIED (6) Lupus Current Visit: Yes Status: Acute Code(s): [id number] - (7) Sick sinus syndrome Current Visit: Yes Status: Acute Code(s): I49.5 - SICK SINUS SYNDROME (8) HTN (hypertension) Current Visit: Yes Status: Acute Code(s): I10 - ESSENTIAL (PRIMARY) HYPERTENSION (9) Sjogren syndrome Current Visit: Yes Status: Acute Code(s): M35.00 - SJOGREN SYNDROME, UNSPECIFIED (10) CHF (congestive heart failure) Current Visit: Yes Status: Acute Code(s): I50.9 - HEART FAILURE, UNSPECIFIED (11) Diabetes mellitus Current Visit: No Status: Chronic Qualifiers: Code(s): E11.9 - TYPE 2 DIABETES MELLITUS WITHOUT COMPLICATIONS (12) Hyponatremia Current Visit: Yes Status: Acute Code(s): E87.1 - HYPO-OSMOLALITY AND HYPONATREMIA (13) Incontinence associated dermatitis Current Visit: Yes Status: Acute Code(s): L25.8 - UNSPECIFIED CONTACT DERMATITIS DUE TO OTHER AGENTS; R32 - UNSPECIFIED URINARY INCONTINENCE (14) Pressure ulcer, stage 1 Current Visit: Yes Status: Acute Code(s): L89.91 - PRESSURE ULCER OF UNSPECIFIED SITE, STAGE 1 (15) HLD (hyperlipidemia) Current Visit: Yes Status: Acute Code(s): E78.5 - HYPERLIPIDEMIA, UNSPECIFIED (16) Metabolic acidosis Current Visit: Yes Status: Acute Code(s): E87.20 - ACIDOSIS, UNSPECIFIED
[2024-03-23] MEDS: PHARMACY DOSING REQUEST MC ONE ×2 (10:49→17:05)
[2024-03-23] MEDS: SODIUM BICARBONATE PO SCH (10:50)
[2024-03-23] MEDS: LEVOFLOXACIN 750MG/150ML D5W 750 MG/150 ML BAG IV SCH (10:51)
[2024-03-23] MEDS: Klor Con PO ONE (10:53)
[2024-03-23 15:40] LABS: Hemoglobin 7.7 g/dL (11.2-15.7)
[2024-03-23 16:11] LABS: INFLUENZA A NEGATIVE (NEGATIVE); INFLUENZA B NEGATIVE (NEGATIVE); RESPIRATORY SYNCTIAL VIRUS NEGATIVE (NEGATIVE); SARS-CoV-2 Xpert Express NEGATIVE (NEGATIVE)
[2024-03-23] MEDS: PHARMACY RENAL DOSING MC ONE (17:05)
[2024-03-23] MEDS ORDERED: MERREM IV ONE (17:19)
[2024-03-23] MEDS ORDERED: Sodium Chloride 100ML MINI-BAG PLUS 100 ML IV ONE (17:20)
[2024-03-23] MEDS: MERREM 500 MG in Sodium Chloride 100ML MINI-BAG PLUS 100 ML IV SCH (17:30)
[2024-03-23] MEDS: Zofran 4 MG/2 ML VIAL IV PRN (20:03)
[2024-03-23] MEDS: Compazine 10 MG/2 ML IV PRN (22:33)
[2024-03-23 23:04] LABS: 027 TOX PROD PRESUMPTIVE NEGATIVE (NEGATIVE); TOXIGENIC C. DIFF ORG NEGATIVE (NEGATIVE)
[2024-03-24] MEDS: CLONIDINE 0.1 MG TABLET PO SCH (00:08)
[2024-03-24] MEDS: Compazine 10 MG/2 ML IV ONE (00:30)
[2024-03-24 04:54] LABS: Hematocrit 23.1 % (34.1-44.9); Hemoglobin 7.4 g/dL (11.2-15.7); Mean Cell Volume 99.6 fL (79.4-94.8); Mean Corpuscular Hemoglobin 31.9 pg (25.6-32.2); Mean Platelet Volume 9.9 fL (9.4-12.3); Platelet Count 100 x10^3/uL (182-369); Red Blood Count 2.32 x10^6/uL (3.93-5.22); Red Cell Distribution Width 17.5 % (11.7-14.4); White Blood Count 10.8 x10^3/uL (3.98-10.04)
[2024-03-24 05:08] LABS: ALBUMIN 2.5 g/dL (3.5-5.0); ANION GAP 11.1 MEQ/L (5-15); BILIRUBIN,TOTAL 0.6 mg/dL (0.2-1.3); Calcium 7.7 mg/dL (8.4-10.2); Creatinine 1 1.97 mg/dL (0.52-1.04); EST GLOMERULAR FILTRATION RATE 25.1 ML/MIN; Potassium 3.4 mmol/L (3.5-5.1); Total Protein 5.1 g/dL (6.3-8.2)
[2024-03-24 06:34] LABS: ANISOCYTOSIS 1+; BAND 11 % (0.0-2.0); Eosinophil 1 % (0.7-5.8); Lymphocytes 8 % (19.3-51.7); Metamyelocyte 4 %; Monocyte 7 % (4.7-12.5); Neutrophils 66 % (34.0-71.1); Poikilocytosis 1+; Promyelocyte 3 %; Total Cells Counted 100
[2024-03-24 06:35] LABS: Polychromasia 1+; Spherocyte 1+
[2024-03-24 06:36] LABS: Nucleated Red Blood Cell 2 %; Platelet Estimate NORMAL (NORMAL)
[2024-03-24] MEDS ORDERED: TYLENOL 325 MG PO PRN (07:55)
[2024-03-24] MEDS: IMODIUM 2 MG PO PRN (09:00)
[2024-03-24] MEDS: NORVASC 5 MG PO SCH (09:00)
[2024-03-24] MEDS: Klor Con PO SCH (09:01)
[2024-03-24 09:24] LABS: IFOB TEST RESULTS POSITIVE (NEGATIVE)
[2024-03-24 09:56] LABS: Potassium 3.5 mmol/L (3.5-5.1)
[2024-03-24] MEDS: Levofloxacin 500 MG Tablet PO SCH (11:32)
[2024-03-24] MEDS: Levofloxacin 250MG Tablet PO ONE (11:32)
--- NOTE | 2024-03-24 11:36 | PCM.NOTE ---
Date and Time: 03/24/24 1129 Subjective Assessment: is a 83 year old female hypertension, CKD, RA, stage III, DM2, lupus, Sjogren's, sick sinus syndrome,recurrent UTI's, anemia, CHF, and peripheral neuropathy who presented to ED 03/21/24 with complaints of dysuria, frequency, subjective fevers, nausea, and vomiting for the past week. She reports she has had recurrent UTI's for several months now and has been prescribed cefpodoxime most recently by her real estate associate attorney Dr. Lopez. She denies hematuria or flank pain. Patient is incontinent with multiple areas of dermatitis on her buttocks. She also reports a poor appetite and energy level, shortness of breath with exertion, and occasional constipation. Denies cp, abdominal pain, BECERRA, or diarrhea. Upon exam patient is euvolemic with clear lung sounds on auscultation. Upon presentation patient hypertensive. Lab findings remarkable for leukocytosis at 12.0, hyponatremia at 130, hypokalemia at 3.3, acidosis with co2 at 18, BETTY with BUN at 71, and creat 2.73 (baseline 1.3-1.8). UA with positive nitrites and leukocytes. Patient given 500ml fluid bolus and ceftriaxone in ED. Admitted for UTI and Acute on chronic kidney disease. Levaquin changed to Merrem yesterday. Last night pt began vomiting and having diarrhea. HGB dropped to 7.4. Occult stool +. Pt does not want to take Merrem and felt this caused her sxs last night. Changed antibiotics back to Levaquin per pt request. Per sensitivity this will also work well for UTI. + fever of 99 last night, and up to 100.7 the previous day, blood cultures x2 ordered today. Pt continues to have BETTY. Amlodipine increased to 10mg today as morning BP 185/80. Will continue to monitor. K+ 3.4 replaced. General surgery consulted for + occult and anemia. Plan is to start prep today and Colonoscopy tomorrow. Pt continues to have weakness. She denies CP, SOB. - Review of Systems Constitutional: Fever, Weakness, No Chills Eyes: No Symptoms Ears, Nose, & Throat: No Symptoms Respiratory: No Cough, No Short Of Breath Cardiac: No Chest Pain, No Edema, No Syncope Abdominal/Gastrointestinal: Abdominal Pain, Nausea, Vomiting, Diarrhea Genitourinary Symptoms: No Dysuria Musculoskeletal: No Back Pain, No Neck Pain Skin: No Rash Neurological: No Dizziness, No Focal Weakness, No Sensory Changes Psychological: No Symptoms Endocrine: No Symptoms Hematologic/Lymphatic: No Symptoms Immunological/Allergic: No Symptoms Objective Exam General Appearance: no apparent distress, alert Neurologic Exam: alert, oriented x 3, cooperative, normal mood/affect, nml cerebellar function, sensation nml, motor weakness, No motor deficits Skin Exam: normal color, warm, dry Wound Assessment: Skin/Wound Assessment Wound/Incision Assessment Start: 03/21/24 14:08 Text: Status: Active Freq: Q6H Protocol: Document 03/24/24 05:00 KD (Rec: 03/24/24 05:29 KD [id number]) Wound/Incision Assessment Left Buttock Wound Assessment Shift Assessment Wound Type scar from previous pressure wound Dressing Status Changed Drainage Amount None Topical Solution/Irrigant Medicated Ointment Primary Dressing mepilex Comment dressing CDI - remains true Right Upper Buttock Wound Assessment Shift Assessment Wound Type purple area, non-blanchable Wound Stage Deep Tissue Injury Dressing Status Changed Surrounding Tissue [place] Topical Solution/Irrigant Medicated Ointment Primary Dressing mepilex Comment dressing CDI - remains true Right Buttock Wound Assessment Shift Assessment Wound Type Pressure Ulcer Wound Stage Stage II Dressing Status Changed Drainage Amount None Drainage Odor None/Absent Wound Bed Greatest Portion Red (Granulation) Wound Bed Lesser Portion Yellow (Slough) Surrounding Tissue [place] Topical Solution/Irrigant Medicated Ointment Primary Dressing mepilex Comment dressing CDI - remains true Wound Photo Photo Taken No Eye Exam: PERRL, EOMI, eyes nml inspection Ears, Nose, Throat Exam: normal ENT inspection, pharynx normal, moist mucous membranes Neck Exam: normal inspection, non-tender, supple, full range of motion Respiratory Exam: normal breath sounds, lungs clear, No respiratory distress Cardiovascular Exam: regular rate/rhythm, normal heart sounds Gastrointestinal/Abdomen Exam: soft, tenderness (generalized), distention, No mass Extremity Exam: normal inspection, normal range of motion Back Exam: normal inspection, normal range of motion, No CVA tenderness, No vertebral tenderness Pelvic Exam: deferred Rectal Exam: deferred Objective Data Vital Signs: Vital Signs - 24 hr Temp Pulse Resp BP Pulse Ox 03/24/24 07:17 98.1 F 67 16 185/80 93 L 03/24/24 04:00 99.1 F 71 18 173/71 91 L 03/24/24 00:00 99.6 F 85 20 191/81 94 L 03/23/24 20:00 98.9 F 77 18 177/71 93 L 03/23/24 17:44 99.1 F 03/23/24 16:00 100.7 F 78 19 165/74 93 L 03/23/24 11:51 97.8 F 77 20 185/78 94 L Pain Assessment - Last Documented Pain Intensity 3 Pain Scale Used [facility] Intake and Output: Intake & Output 03/21/24 03/22/24 03/23/24 03/24/24 11:59 11:59 11:59 11:59 Intake Total 1776 2147 2960 Output Total 850 1600 Balance 926 2147 1360 Weight 71.9 kg 70.9 kg 74.9 kg 74.6 kg Lab Results: Lab Results-Last 24 Hours 03/23/24 03/23/24 03/23/24 Range/Units 11:46 12:50 15:25 WBC (3.98-10.04) x10^3/uL RBC (3.93-5.22) x10^6/uL Hgb 7.7 L (11.2-15.7) g/dL Hct 24.0 L (34.1-44.9) % MCV (79.4-94.8) fL MCH (25.6-32.2) pg MCHC (32.2-35.5) g/dL RDW (11.7-14.4) % Plt Count (182-369) x10^3/uL MPV (9.4-12.3) fL Segmented Neutrophils (34.0-71.1) % Band Neutrophils (0.0-2.0) % Lymphocytes (Manual) (19.3-51.7) % Monocytes (Manual) (4.7-12.5) % Eosinophils (Manual) (0.7-5.8) % Metamyelocytes % Promyelocytes % Nucleated RBCs % Platelet Estimate (NORMAL) RBC Morphology Polychromasia Poikilocytosis Anisocytosis Spherocytes Sodium (135-145) mmol/L Potassium 3.6 (3.5-5.1) mmol/L Chloride (98-107) mmol/L Carbon Dioxide (22-30) mmol/L Anion Gap (5-15) MEQ/L BUN (7-17) mg/dL Creatinine (0.52-1.04) mg/dL Estimated GFR ML/MIN Glucose (74-106) mg/dL POC Glucometer 142 H (74 to 106) mg/dL Calcium (8.4-10.2) mg/dL Magnesium (1.6-2.3) mg/dL Total Bilirubin (0.2-1.3) mg/dL AST (14-36) U/L ALT (0-35) U/L Alkaline Phosphatase (38-126) U/L Serum Total Protein (6.3-8.2) g/dL Albumin (3.5-5.0) g/dL Stl Occult Blood (IFOB) (NEGATIVE) C. difficile Screen (NEGATIVE) C.difficile 027-NAP1-B1 (NEGATIVE) Influenza Type A Ag (NEGATIVE) Influenza Type B Ag (NEGATIVE) RSV (PCR) (NEGATIVE) SARS-CoV-2 (PCR) (NEGATIVE) 03/23/24 03/23/24 03/23/24 Range/Units 15:28 16:14 22:17 WBC (3.98-10.04) x10^3/uL RBC (3.93-5.22) x10^6/uL Hgb (11.2-15.7) g/dL Hct (34.1-44.9) % MCV (79.4-94.8) fL MCH (25.6-32.2) pg MCHC (32.2-35.5) g/dL RDW (11.7-14.4) % Plt Count (182-369) x10^3/uL MPV (9.4-12.3) fL Segmented Neutrophils (34.0-71.1) % Band Neutrophils (0.0-2.0) % Lymphocytes (Manual) (19.3-51.7) % Monocytes (Manual) (4.7-12.5) % Eosinophils (Manual) (0.7-5.8) % Metamyelocytes % Promyelocytes % Nucleated RBCs % Platelet Estimate (NORMAL) RBC Morphology Polychromasia Poikilocytosis Anisocytosis Spherocytes Sodium (135-145) mmol/L Potassium (3.5-5.1) mmol/L Chloride (98-107) mmol/L Carbon Dioxide (22-30) mmol/L Anion Gap (5-15) MEQ/L BUN (7-17) mg/dL Creatinine (0.52-1.04) mg/dL Estimated GFR ML/MIN Glucose (74-106) mg/dL POC Glucometer 286 H (74 to 106) mg/dL Calcium (8.4-10.2) mg/dL Magnesium (1.6-2.3) mg/dL Total Bilirubin (0.2-1.3) mg/dL AST (14-36) U/L ALT (0-35) U/L Alkaline Phosphatase (38-126) U/L Serum Total Protein (6.3-8.2) g/dL Albumin (3.5-5.0) g/dL Stl Occult Blood (IFOB) (NEGATIVE) C. difficile Screen NEGATIVE (NEGATIVE) C.difficile 027-NAP1-B1 PRESUMPTIVE NEGATIVE (NEGATIVE) Influenza Type A Ag NEGATIVE (NEGATIVE) Influenza Type B Ag NEGATIVE (NEGATIVE) RSV (PCR) NEGATIVE (NEGATIVE) SARS-CoV-2 (PCR) NEGATIVE (NEGATIVE) 03/23/24 03/24/24 03/24/24 Range/Units 22:54 04:30 04:30 WBC 10.8 H (3.98-10.04) x10^3/uL RBC 2.32 L (3.93-5.22) x10^6/uL Hgb 7.4 L (11.2-15.7) g/dL Hct 23.1 L (34.1-44.9) % MCV 99.6 H (79.4-94.8) fL MCH 31.9 (25.6-32.2) pg MCHC 32.0 L (32.2-35.5) g/dL RDW 17.5 H (11.7-14.4) % Plt Count 100 L (182-369) x10^3/uL MPV 9.9 (9.4-12.3) fL Segmented Neutrophils 66 (34.0-71.1) % Band Neutrophils 11 H (0.0-2.0) % Lymphocytes (Manual) 8 L (19.3-51.7) % Monocytes (Manual) 7 (4.7-12.5) % Eosinophils (Manual) 1 (0.7-5.8) % Metamyelocytes 4 % Promyelocytes 3 % Nucleated RBCs 2 % Platelet Estimate NORMAL (NORMAL) RBC Morphology ABNORMAL Polychromasia 1+ Poikilocytosis 1+ Anisocytosis 1+ Spherocytes 1+ Sodium 136 (135-145) mmol/L Potassium 3.4 L (3.5-5.1) mmol/L Chloride 110 H (98-107) mmol/L Carbon Dioxide 18 L (22-30) mmol/L Anion Gap 11.1 (5-15) MEQ/L BUN 44 H (7-17) mg/dL Creatinine 1.97 H (0.52-1.04) mg/dL Estimated GFR 25.1 ML/MIN Glucose 142 H (74-106) mg/dL POC Glucometer 150 H (74 to 106) mg/dL Calcium 7.7 L (8.4-10.2) mg/dL Magnesium (1.6-2.3) mg/dL Total Bilirubin 0.60 (0.2-1.3) mg/dL AST 28 (14-36) U/L ALT 21 (0-35) U/L Alkaline Phosphatase 55 (38-126) U/L Serum Total Protein 5.1 L (6.3-8.2) g/dL Albumin 2.5 L (3.5-5.0) g/dL Stl Occult Blood (IFOB) (NEGATIVE) C. difficile Screen (NEGATIVE) C.difficile 027-NAP1-B1 (NEGATIVE) Influenza Type A Ag (NEGATIVE) Influenza Type B Ag (NEGATIVE) RSV (PCR) (NEGATIVE) SARS-CoV-2 (PCR) (NEGATIVE) 03/24/24 03/24/24 03/24/24 Range/Units 07:41 09:23 09:37 WBC (3.98-10.04) x10^3/uL RBC (3.93-5.22) x10^6/uL Hgb (11.2-15.7) g/dL Hct (34.1-44.9) % MCV (79.4-94.8) fL MCH (25.6-32.2) pg MCHC (32.2-35.5) g/dL RDW (11.7-14.4) % Plt Count (182-369) x10^3/uL MPV (9.4-12.3) fL Segmented Neutrophils (34.0-71.1) % Band Neutrophils (0.0-2.0) % Lymphocytes (Manual) (19.3-51.7) % Monocytes (Manual) (4.7-12.5) % Eosinophils (Manual) (0.7-5.8) % Metamyelocytes % Promyelocytes % Nucleated RBCs % Platelet Estimate (NORMAL) RBC Morphology Polychromasia Poikilocytosis Anisocytosis Spherocytes Sodium (135-145) mmol/L Potassium 3.5 (3.5-5.1) mmol/L Chloride (98-107) mmol/L Carbon Dioxide (22-30) mmol/L Anion Gap (5-15) MEQ/L BUN (7-17) mg/dL Creatinine (0.52-1.04) mg/dL Estimated GFR ML/MIN Glucose (74-106) mg/dL POC Glucometer 102 (74 to 106) mg/dL Calcium (8.4-10.2) mg/dL Magnesium 2.0 (1.6-2.3) mg/dL Total Bilirubin (0.2-1.3) mg/dL AST (14-36) U/L ALT (0-35) U/L Alkaline Phosphatase (38-126) U/L Serum Total Protein (6.3-8.2) g/dL Albumin (3.5-5.0) g/dL Stl Occult Blood (IFOB) POSITIVE A (NEGATIVE) C. difficile Screen (NEGATIVE) C.difficile 027-NAP1-B1 (NEGATIVE) Influenza Type A Ag (NEGATIVE) Influenza Type B Ag (NEGATIVE) RSV (PCR) (NEGATIVE) SARS-CoV-2 (PCR) (NEGATIVE) Assessment/Plan (1) Acute UTI (urinary tract infection) Current Visit: Yes Status: Acute Code(s): N39.0 - URINARY TRACT INFECTION, SITE NOT SPECIFIED (2) Acute kidney injury superimposed on CKD Current Visit: Yes Status: Acute Code(s): N17.9 - ACUTE KIDNEY FAILURE, UNSPECIFIED; N18.9 - CHRONIC KIDNEY DISEASE, UNSPECIFIED (3) Chronic anemia Current Visit: Yes Status: Acute Code(s): D64.9 - ANEMIA, UNSPECIFIED (4) HLD (hyperlipidemia) Current Visit: Yes Status: Acute Code(s): E78.5 - HYPERLIPIDEMIA, UNSPECIFIED (5) HTN (hypertension) Current Visit: Yes Status: Acute Code(s): I10 - ESSENTIAL (PRIMARY) HYPERTENSION (6) Hypokalemia Current Visit: Yes Status: Acute Code(s): E87.6 - HYPOKALEMIA (7) Hyponatremia Current Visit: Yes Status: Acute Code(s): E87.1 - HYPO-OSMOLALITY AND HYPONATREMIA (8) Incontinence associated dermatitis Current Visit: Yes Status: Acute Code(s): L25.8 - UNSPECIFIED CONTACT DERMATITIS DUE TO OTHER AGENTS; R32 - UNSPECIFIED URINARY INCONTINENCE (9) Lupus Current Visit: Yes Status: Acute Code(s): [id number] - (10) Metabolic acidosis Current Visit: Yes Status: Acute Code(s): E87.20 - ACIDOSIS, UNSPECIFIED (11) Pressure ulcer, stage 1 Current Visit: Yes Status: Acute Code(s): L89.91 - PRESSURE ULCER OF UNSPECIFIED SITE, STAGE 1 (12) Sjogren syndrome Current Visit: Yes Status: Acute Code(s): M35.00 - SJOGREN SYNDROME, UNSPECIFIED (13) CHF (congestive heart failure) Current Visit: No Status: Acute Code(s): I50.9 - HEART FAILURE, UNSPECIFIED (14) Diabetes mellitus Current Visit: No Status: Chronic Qualifiers: Assessment & Plan: (1) Acute UTI (urinary tract infection) Current Visit: Yes Status: Acute Assessment & Plan: - culture with pseudomonas- abx changed to levaquin - renal dosed - WBC 10.8 - Temp 99.0 last night and 100.7 the previous day. - BC x2 ordered Code(s): N39.0 - URINARY TRACT INFECTION, SITE NOT SPECIFIED (2) Acute kidney injury superimposed on CKD Current Visit: Yes Status: Acute Assessment & Plan: -Patient of Dr. Lopez -baseline creat 1.1-1.8 - Creat 1.11 today - IVF Code(s): N17.9 - ACUTE KIDNEY FAILURE, UNSPECIFIED; N18.9 - CHRONIC KIDNEY DISEASE, UNSPECIFIED (3) Hypokalemia Current Visit: Yes Status: Acute Assessment & Plan: - tele - K+ 3.4- replaced- trend Code(s): E87.6 - HYPOKALEMIA (4) Metabolic acidosis Current Visit: Yes Status: Acute Assessment & Plan: - Co2 18 - continue sodium bicarb BID - + diarrhea Code(s): E87.20 - ACIDOSIS, UNSPECIFIED (5) Chronic anemia Current Visit: Yes Status: Acute Assessment & Plan: - Chronic iron def - Continue ferrous sulfate - Hgb 7.4- trend - + occult stool this am - consult Code(s): D64.9 - ANEMIA, UNSPECIFIED (6) Lupus Current Visit: Yes Status: Acute Code(s): [id number] - -Follows with Dr. Webb OP (7) Sick sinus syndrome Current Visit: Yes Status: Acute Assessment & Plan: -noted with pacemaker Code(s): I49.5 - SICK SINUS SYNDROME (8) HTN (hypertension) Current Visit: Yes Status: Acute Assessment & Plan: -Remains elevated - continue home meds coreg, hydralazine TID dosing, add amlodipine, add clonodine 0.1mg QHS-hold lisinopril due to BETTY 03/24 - increased amlodipine Code(s): I10 - ESSENTIAL (PRIMARY) HYPERTENSION (9) Sjogren syndrome Current Visit: Yes Status: Acute Assessment & Plan: -continue home meds Code(s): M35.00 - SJOGREN SYNDROME, UNSPECIFIED (10) CHF (congestive heart failure) Current Visit: Yes Status: Acute Assessment & Plan: -Echo performed today - pending -Echo from 12/07/22 reviewed EF 50-55% IMPRESSION: 1) MILD TO MODERATE ASYMMETRIC LEFT VENTRICULAR HYPERTROPHY WITHOUT EVIDENCE OF LEFT VENTRICULAR OUTFLOW TRACT OBSTRUCTION. 2) LOW NORMAL LEFT VENTRICULAR SYSTOLIC FUNCTION. 3) CALCIFIC AORTIC SCLEROSIS WITHOUT EVIDENCE OF ANY STENOSIS. 4) MODERATE MITRAL REGURGITATION. 5) TRACE TRICUSPID REGURGITATION. -does not appear to be in exacerbation - no edema on exam -Daily weights- monitor I&O's -watch for fluid overload -cxr -BNP -Hold lasix due to BETTY -continue Imdur/coreg Continue afterload control with blood pressure Code(s): I50.9 - HEART FAILURE, UNSPECIFIED (11) Diabetes mellitus Current Visit: No Status: Chronic Qualifiers: Assessment & Plan: -ADA diet -SSI -A1c 6.38- controlled Code(s): E11.9 - TYPE 2 DIABETES MELLITUS WITHOUT COMPLICATIONS (12) Hyponatremia Current Visit: Yes Status: Acute Assessment & Plan: -resolved Code(s): E87.1 - HYPO-OSMOLALITY AND HYPONATREMIA (13) Incontinence associated dermatitis Current Visit: Yes Status: Acute Assessment & Plan: -Turn q2h -purewick -barrier cream Code(s): L25.8 - UNSPECIFIED CONTACT DERMATITIS DUE TO OTHER AGENTS; R32 - UNSPECIFIED URINARY INCONTINENCE (14) Pressure ulcer, stage 1 Current Visit: Yes Status: Acute Assessment & Plan: -see incontinence dermatitis- pictures in chart Code(s): L89.91 - PRESSURE ULCER OF UNSPECIFIED SITE, STAGE 1 (15) HLD (hyperlipidemia) Current Visit: Yes Status: Acute Assessment & Plan: -continue statin Code(s): N39.0 - URINARY TRACT INFECTION, SITE NOT SPECIFIED Code(s): E11.9 - TYPE 2 DIABETES MELLITUS WITHOUT COMPLICATIONS (15) Weakness Current Visit: Yes Status: Acute Assessment & Plan: - PT eval and treat Code(s): R53.1 - WEAKNESS (16) Yeast dermatitis Current Visit: Yes Status: Acute Assessment & Plan: - groin regions - Nystatin powder Code(s): B37.2 - CANDIDIASIS OF SKIN AND NAIL (17) Diarrhea Current Visit: Yes Status: Acute Assessment & Plan: - C-Diff negative - Probiotics - Imodium Code(s): R19.7 - DIARRHEA, UNSPECIFIED (18) Occult blood positive stool Current Visit: Yes Status: Acute Assessment & Plan: -03/24 + Occult stool - GS consulted- Prep to start today with colonoscopy tomorrow. - H&H Q6 VTE: Heparin d/c -bilateral SCD due to anemia Dispo: 1-2 days Code Status: full code
[2024-03-24] MEDS: PHARMACY RENAL DOSING MC ONE (11:45)
[2024-03-24 12:20] LABS: Hematocrit 23.6 % (34.1-44.9); Hemoglobin 7.8 g/dL (11.2-15.7)
[2024-03-24] MEDS: NYSTOP POWDER 15 GM TP SCH (13:24)
[2024-03-24] MEDS: Acidophilus TABLET PO SCH (13:24)
[2024-03-24] MEDS ORDERED: MERREM 500 MG in Sodium Chloride 100ML MINI-BAG PLUS 100 ML IV SCH (14:00)
[2024-03-24] MEDS ORDERED: Golytely Solution 4000 ML PO ONE (17:00)
[2024-03-24] MEDS: DULCOLAX 5 MG PO ONE (17:26)
[2024-03-24] MEDS: GAVILAX PO ONE (17:26)
[2024-03-24 18:17] LABS: Hematocrit 24.7 % (34.1-44.9)
[2024-03-25 00:35] LABS: Hematocrit 23.1 % (34.1-44.9); Hemoglobin 7.4 g/dL (11.2-15.7); Mean Cell Volume 101.3 fL (79.4-94.8); Mean Corpuscular Hemoglobin 32.5 pg (25.6-32.2); Mean Platelet Volume 10.2 fL (9.4-12.3); Platelet Count 108 x10^3/uL (182-369); Red Blood Count 2.28 x10^6/uL (3.93-5.22); Red Cell Distribution Width 18.2 % (11.7-14.4); White Blood Count 11.2 x10^3/uL (3.98-10.04)
[2024-03-25 00:49] LABS: ALBUMIN 2.5 g/dL (3.5-5.0); ANION GAP 13.3 MEQ/L (5-15); BILIRUBIN,TOTAL 0.7 mg/dL (0.2-1.3); Calcium 7.6 mg/dL (8.4-10.2); Creatinine 1 1.96 mg/dL (0.52-1.04); EST GLOMERULAR FILTRATION RATE 25.2 ML/MIN; Total Protein 4.9 g/dL (6.3-8.2)
[2024-03-25 01:55] LABS: BAND 6 % (0.0-2.0); Lymphocytes 17 % (19.3-51.7); Macrocytosis 1+; Metamyelocyte 7 %; Myelocyte 7 %; Neutrophils 63 % (34.0-71.1); Platelet Estimate DECREASED (NORMAL); Total Cells Counted 100
[2024-03-25 05:27] LABS: ANION GAP 10.5 MEQ/L (5-15); Calcium 7.6 mg/dL (8.4-10.2); Creatinine 1 2.09 mg/dL (0.52-1.04); EST GLOMERULAR FILTRATION RATE 23.4 ML/MIN; Potassium 4.6 mmol/L (3.5-5.1)
[2024-03-25] MEDS: PROTONIX 40 MG IV IV SCH (08:34)
[2024-03-25] MEDS ORDERED: Levofloxacin 500MG/100ML D5W 500 MG/100 ML BAG IV SCH (10:00)
--- NOTE | 2024-03-25 10:10 | CONS ---
HISTORY OF PRESENT ILLNESS: The patient was admitted on 03/21/2024. She has been here all weekend. She said she came in originally with a UTI. She has multiple medical problems, hypertension, chronic renal disease, rheumatoid arthritis, diabetes, lupus, Sjogren's, sick sinus syndrome, current UTI, history of anemia, peripheral neuropathy, CHF in the past. She did have some anemia. She was Hemoccult positive. There was a question whether she had any rectal bleeding but the nursing staff says they have not seen any bright red rectal bleeding but she was Hemoccult positive. Again, hemoglobin had been down to 7.1; it was 9.[address] 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 They then called her for our group. I was asked that I see the patient today. PAST MEDICAL HISTORY: Extensive history as noted above. HOME MEDICATIONS: Prior to admission, atorvastatin, gabapentin, isosorbide mononitrate, aspirin, folic acid, carvedilol, ferrous sulfate, furosemide, glimepiride, hydralazine, hydrocodone, allopurinol, lisinopril, methylprednisolone. PAST SURGICAL HISTORY: She had a hysterectomy and cholecystectomy in the past. She had a bladder suspension in the past. SOCIAL HISTORY: No smoking. FAMILY HISTORY: Negative with regard to this problem. REVIEW OF SYSTEMS: Twelve systems reviewed. No chest pain or palpitations. No current abdominal pain. She said last colonoscopy was years ago. Other systems negative or as noted above per pre-admission assessment. PHYSICAL EXAMINATION: GENERAL: A 83-year-old female. She has some bruises on her skin. Afebrile. VITAL SIGNS: Stable. HEENT: Sclerae nonicteric. NECK: No JVD. CHEST: Equal excursion, nonlabored breathing. ABDOMEN: Soft. Nontender. No peritoneal signs. EXTREMITIES: No cyanosis. She does have bruising to the upper extremities. NEUROLOGIC: Alert. PSYCHIATRIC: Appropriate mood and affect. ASSESSMENT: She has significant anemia. She is Hemoccult positive. Told her she definitely needs EGD and colonoscopy at some point. She is willing to do so while she is in the hospital. She understands the risk of bleeding and infection, risk of bowel injury or perforation, possibly requiring open procedure, risk of morbidity and mortality, risk of ongoing renal insufficiency, or dehydration with the bowel prep. Possibly of worsening by continued hemoglobin drop. She understands all of the risks of anesthesia, sedation, and the bowel prep but not limited to. She prefers to proceed if she can do a bowel prep. Either myself or one of my partners will proceed with EGD and colonoscopy tomorrow when OR time is available, sometime possibly late in the afternoon or evening. Otherwise, continue medical management of her renal insufficiency, UTI, Sjogren syndrome, sick sinus syndrome. She has her pacemaker. We will continue medical management of her hypertension and her history of heart failure.
--- NOTE | 2024-03-25 10:36 | PCM.NOTE ---
Date and Time: 03/25/24 1029 Subjective Assessment: 03/24/24 is a 83 year old female hypertension, CKD, RA, stage III, DM2, lupus, Sjogren's, sick sinus syndrome,recurrent UTI's, anemia, CHF, and peripheral neuropathy who presented to ED 03/21/24 with complaints of dysuria, frequency, subjective fevers, nausea, and vomiting for the past week. She reports she has had recurrent UTI's for several months now and has been prescribed cefpodoxime most recently by her port steward Dr. Lopez. She denies hematuria or flank pain. Patient is incontinent with multiple areas of dermatitis on her buttocks. She also reports a poor appetite and energy level, shortness of breath with exertion, and occasional constipation. Denies cp, abdominal pain, BECERRA, or diarrhea. Upon exam patient is euvolemic with clear lung sounds on auscultation. Upon presentation patient hypertensive. Lab findings remarkable for leukocytosis at 12.0, hyponatremia at 130, hypokalemia at 3.3, acidosis with co2 at 18, BETTY with BUN at 71, and creat 2.73 (baseline 1.3-1.8). UA with positive nitrites and leukocytes. Patient given 500ml fluid bolus and ceftriaxone in ED. Admitted for UTI and Acute on chronic kidney disease. Levaquin changed to Merrem yesterday. Last night pt began vomiting and having diarrhea. HGB dropped to 7.4. Occult stool +. Pt does not want to take Merrem and felt this caused her sxs last night. Changed antibiotics back to Levaquin per pt request. Per sensitivity this will also work well for UTI. + fever of 99 last night, and up to 100.7 the previous day, blood cultures x2 ordered today. Pt continues to have BETTY. Amlodipine increased to 10mg today as morning BP 185/80. Will continue to monitor. K+ 3.4 replaced. General surgery consulted for + occult and anemia. Plan is to start prep today and Colonoscopy tomorrow. Pt continues to have weakness. She denies CP, SOB. 03/25/24 Pt resting in bed. She states she is feeling weak but better and would like to be able to go home today. She is scheduled for an EGD and colonoscopy today. Hgb stable at 7.4. Continue antibiotics for UTI. Depending on results of EGD/ Colonoscopy that will determine if she is able to d/c. She likeley needs another day d/t weakness. She refused to work with PT yesterday, encouraged her to try today. She did not have a fever overnight. BCx2 still pending. She continues to have some BETTY, continue IVF. She denies Cp, SOB, Abd. pain. She did have some N/V overnight. - Review of Systems Constitutional: No Fever, No Chills Eyes: No Symptoms Ears, Nose, & Throat: No Symptoms Respiratory: No Cough, No Short Of Breath Cardiac: No Chest Pain, No Edema, No Syncope Abdominal/Gastrointestinal: Nausea, Vomiting, Diarrhea, Hematochezia, No Abdominal Pain Genitourinary Symptoms: No Dysuria Musculoskeletal: No Back Pain, No Neck Pain Skin: No Rash Neurological: No Dizziness, No Focal Weakness, No Sensory Changes Psychological: No Symptoms Endocrine: No Symptoms Hematologic/Lymphatic: No Symptoms Immunological/Allergic: No Symptoms Objective Exam General Appearance: no apparent distress, alert Neurologic Exam: alert, oriented x 3, cooperative, normal mood/affect, nml cerebellar function, sensation nml, No motor deficits Skin Exam: normal color, warm, dry Wound Assessment: Skin/Wound Assessment Wound/Incision Assessment Start: 03/21/24 14:08 Text: Status: Active Freq: Q6H Protocol: Document 03/25/24 05:00 MP (Rec: 03/25/24 05:01 MP [id number]) Wound/Incision Assessment Left Buttock Wound Assessment Shift Assessment Wound Type scar from previous pressure wound Drainage Amount None Topical Solution/Irrigant Medicated Ointment Comment REMOVED DRESSING DUE TO FREQUENT BOWEL INCONTINENCE AND SCHEDULED BOWEL PREP - ZINC OXIDE BARRIER CREAM APPLIED TO BILATERAL BUTTOCKS - ASSISTING WITH TURNING AND REPOSITIONING EVERY 2 HRS AND PRN Right Upper Buttock Wound Assessment Shift Assessment Wound Type purple area, non-blanchable Wound Stage Deep Tissue Injury Surrounding Tissue [place] Topical Solution/Irrigant Medicated Ointment Comment REMOVED DRESSING DUE TO FREQUENT BOWEL INCONTINENCE AND SCHEDULED BOWEL PREP - ZINC OXIDE BARRIER CREAM APPLIED TO BILATERAL BUTTOCKS - ASSISTING WITH TURNING AND REPOSITIONING EVERY 2 HRS AND PRN Right Buttock Wound Assessment Shift Assessment Wound Type Pressure Ulcer Wound Stage Stage II Dressing Status Changed Drainage Amount None Drainage Odor None/Absent Wound Bed Greatest Portion Red (Granulation) Wound Bed Lesser Portion Yellow (Slough) Surrounding Tissue [place] Topical Solution/Irrigant Medicated Ointment Comment REMOVED DRESSING DUE TO FREQUENT BOWEL INCONTINENCE AND SCHEDULED BOWEL PREP - ZINC OXIDE BARRIER CREAM APPLIED TO BILATERAL BUTTOCKS - ASSISTING WITH TURNING AND REPOSITIONING EVERY 2 HRS AND PRN Wound Photo Photo Taken No Eye Exam: PERRL, EOMI, eyes nml inspection Ears, Nose, Throat Exam: normal ENT inspection, pharynx normal, moist mucous membranes Neck Exam: normal inspection, non-tender, supple, full range of motion Respiratory Exam: normal breath sounds, lungs clear, No respiratory distress Cardiovascular Exam: regular rate/rhythm, normal heart sounds Gastrointestinal/Abdomen Exam: soft, No tenderness, No mass Extremity Exam: normal inspection, normal range of motion Back Exam: normal inspection, normal range of motion, No CVA tenderness, No vertebral tenderness Pelvic Exam: deferred Rectal Exam: deferred Objective Data Vital Signs: Vital Signs - 24 hr Temp Pulse Resp BP Pulse Ox 03/25/24 07:45 99.6 F 75 16 178/74 92 L 03/25/24 04:00 97.1 F 73 18 165/71 93 L 03/24/24 19:15 97.7 F 78 16 159/60 93 L 03/24/24 15:51 98.6 F 72 16 149/63 93 L 03/24/24 12:00 98.6 F 72 16 149/63 93 L Pain Assessment - Last Documented Pain Intensity 8 Pain Scale Used 0-10 Pain Scale Intake and Output: Intake & Output 03/22/24 03/23/24 03/24/24 03/25/24 11:59 11:59 11:59 11:59 Intake Total 1776 2147 2960 1367 Output Total 850 1600 Balance 926 2147 1360 1367 Weight 70.9 kg 74.9 kg 74.6 kg 75.2 kg Lab Results: Lab Results-Last 24 Hours 03/21/24 03/24/24 03/24/24 Range/Units 04:40 12:04 12:19 WBC (3.98-10.04) x10^3/uL RBC (3.93-5.22) x10^6/uL Hgb (11.2-15.7) g/dL Hct (34.1-44.9) % MCV (79.4-94.8) fL MCH (25.6-32.2) pg MCHC (32.2-35.5) g/dL RDW (11.7-14.4) % Plt Count (182-369) x10^3/uL MPV (9.4-12.3) fL Segmented Neutrophils (34.0-71.1) % Band Neutrophils (0.0-2.0) % Lymphocytes (Manual) (19.3-51.7) % Metamyelocytes % Myelocytes % Platelet Estimate (NORMAL) RBC Morphology Macrocytosis Sodium (135-145) mmol/L Potassium 4.0 (3.5-5.1) mmol/L Chloride (98-107) mmol/L Carbon Dioxide (22-30) mmol/L Anion Gap (5-15) MEQ/L BUN (7-17) mg/dL Creatinine (0.52-1.04) mg/dL Estimated GFR ML/MIN Glucose (74-106) mg/dL POC Glucometer 146 H (74 to 106) mg/dL Calcium (8.4-10.2) mg/dL Total Bilirubin (0.2-1.3) mg/dL AST (14-36) U/L ALT (0-35) U/L Alkaline Phosphatase (38-126) U/L Serum Total Protein (6.3-8.2) g/dL Albumin (3.5-5.0) g/dL Ur Random Urea Nitrogn 495 (Not Estab.) mg/dL 03/24/24 03/24/24 03/24/24 Range/Units 12:19 16:33 18:00 WBC (3.98-10.04) x10^3/uL RBC (3.93-5.22) x10^6/uL Hgb 7.8 L 8.0 L (11.2-15.7) g/dL Hct 23.6 L 24.7 L (34.1-44.9) % MCV (79.4-94.8) fL MCH (25.6-32.2) pg MCHC (32.2-35.5) g/dL RDW (11.7-14.4) % Plt Count (182-369) x10^3/uL MPV (9.4-12.3) fL Segmented Neutrophils (34.0-71.1) % Band Neutrophils (0.0-2.0) % Lymphocytes (Manual) (19.3-51.7) % Metamyelocytes % Myelocytes % Platelet Estimate (NORMAL) RBC Morphology Macrocytosis Sodium (135-145) mmol/L Potassium (3.5-5.1) mmol/L Chloride (98-107) mmol/L Carbon Dioxide (22-30) mmol/L Anion Gap (5-15) MEQ/L BUN (7-17) mg/dL Creatinine (0.52-1.04) mg/dL Estimated GFR ML/MIN Glucose (74-106) mg/dL POC Glucometer 185 H (74 to 106) mg/dL Calcium (8.4-10.2) mg/dL Total Bilirubin (0.2-1.3) mg/dL AST (14-36) U/L ALT (0-35) U/L Alkaline Phosphatase (38-126) U/L Serum Total Protein (6.3-8.2) g/dL Albumin (3.5-5.0) g/dL Ur Random Urea Nitrogn (Not Estab.) mg/dL 03/24/24 03/24/24 03/25/24 Range/Units 18:00 21:32 00:15 WBC 11.2 H (3.98-10.04) x10^3/uL RBC 2.28 L (3.93-5.22) x10^6/uL Hgb 7.4 L (11.2-15.7) g/dL Hct 23.1 L (34.1-44.9) % MCV 101.3 H (79.4-94.8) fL MCH 32.5 H (25.6-32.2) pg MCHC 32.0 L (32.2-35.5) g/dL RDW 18.2 H (11.7-14.4) % Plt Count 108 L (182-369) x10^3/uL MPV 10.2 (9.4-12.3) fL Segmented Neutrophils 63 (34.0-71.1) % Band Neutrophils 6 H (0.0-2.0) % Lymphocytes (Manual) 17 L (19.3-51.7) % Metamyelocytes 7 % Myelocytes 7 % Platelet Estimate DECREASED (NORMAL) RBC Morphology ABNORMAL Macrocytosis 1+ Sodium (135-145) mmol/L Potassium 5.2 H D (3.5-5.1) mmol/L Chloride (98-107) mmol/L Carbon Dioxide (22-30) mmol/L Anion Gap (5-15) MEQ/L BUN (7-17) mg/dL Creatinine (0.52-1.04) mg/dL Estimated GFR ML/MIN Glucose (74-106) mg/dL POC Glucometer 196 H (74 to 106) mg/dL Calcium (8.4-10.2) mg/dL Total Bilirubin (0.2-1.3) mg/dL AST (14-36) U/L ALT (0-35) U/L Alkaline Phosphatase (38-126) U/L Serum Total Protein (6.3-8.2) g/dL Albumin (3.5-5.0) g/dL Ur Random Urea Nitrogn (Not Estab.) mg/dL 03/25/24 03/25/24 03/25/24 Range/Units 00:15 04:58 07:07 WBC (3.98-10.04) x10^3/uL RBC (3.93-5.22) x10^6/uL Hgb (11.2-15.7) g/dL Hct (34.1-44.9) % MCV (79.4-94.8) fL MCH (25.6-32.2) pg MCHC (32.2-35.5) g/dL RDW (11.7-14.4) % Plt Count (182-369) x10^3/uL MPV (9.4-12.3) fL Segmented Neutrophils (34.0-71.1) % Band Neutrophils (0.0-2.0) % Lymphocytes (Manual) (19.3-51.7) % Metamyelocytes % Myelocytes % Platelet Estimate (NORMAL) RBC Morphology Macrocytosis Sodium 135 135 (135-145) mmol/L Potassium 5.0 4.6 (3.5-5.1) mmol/L Chloride 111 H 111 H (98-107) mmol/L Carbon Dioxide 16 L* 18 L (22-30) mmol/L Anion Gap 13.3 10.5 (5-15) MEQ/L BUN 40 H 39 H (7-17) mg/dL Creatinine 1.96 H 2.09 H (0.52-1.04) mg/dL Estimated GFR 25.2 23.4 ML/MIN Glucose 173 H 157 H (74-106) mg/dL POC Glucometer 153 H (74 to 106) mg/dL Calcium 7.6 L 7.6 L (8.4-10.2) mg/dL Total Bilirubin 0.70 (0.2-1.3) mg/dL AST 28 (14-36) U/L ALT 23 (0-35) U/L Alkaline Phosphatase 49 (38-126) U/L Serum Total Protein 4.9 L (6.3-8.2) g/dL Albumin 2.5 L (3.5-5.0) g/dL Ur Random Urea Nitrogn (Not Estab.) mg/dL Multi-Disciplinary Progress Notes: Multi-Disciplinary Progress Notes 03/24/24 16:13 Occupational Therapy Note by Elean (L#[id number])[facility] Occupational Therapy evaluation attempt from 8:22-8:30; as Chava participated in the history portion but declined out of bed activity. Physical therapist called this OT in afternoon and reports that Chava continues to decline out of bed activity. She is to undergo procedures tomorrow and has started bowel prep. OT will follow up as appropriate. Baseline: Chava lives with spouse in single level home, 1 step to enter, 1 hand rail; uses a rollator PRN,uses a walk in shower, shower seat, hand held shower hose, and raised toilet seat. She is independent with ADLs and splits home ma nagement tasks, meal prep, and laundry with her spouse. She reports chronic back pain which inhibits her ability to complete I/ADLs. Initialized on 03/24/24 16:13 - END OF NOTE Assessment/Plan (1) Acute UTI (urinary tract infection) Current Visit: Yes Status: Acute Code(s): N39.0 - URINARY TRACT INFECTION, SITE NOT SPECIFIED (2) Acute kidney injury superimposed on CKD Current Visit: Yes Status: Acute Code(s): N17.9 - ACUTE KIDNEY FAILURE, UNSPECIFIED; N18.9 - CHRONIC KIDNEY DISEASE, UNSPECIFIED (3) Chronic anemia Current Visit: Yes Status: Acute Code(s): D64.9 - ANEMIA, UNSPECIFIED (4) HLD (hyperlipidemia) Current Visit: Yes Status: Acute Code(s): E78.5 - HYPERLIPIDEMIA, UNSPECIFIED (5) HTN (hypertension) Current Visit: Yes Status: Acute Code(s): I10 - ESSENTIAL (PRIMARY) HYPERTENSION (6) Hypokalemia Current Visit: Yes Status: Acute Code(s): E87.6 - HYPOKALEMIA (7) Hyponatremia Current Visit: Yes Status: Acute Code(s): E87.1 - HYPO-OSMOLALITY AND HYPONATREMIA (8) Incontinence associated dermatitis Current Visit: Yes Status: Acute Code(s): L25.8 - UNSPECIFIED CONTACT DERMATITIS DUE TO OTHER AGENTS; R32 - UNSPECIFIED URINARY INCONTINENCE (9) Lupus Current Visit: Yes Status: Acute Code(s): [id number] - (10) Metabolic acidosis Current Visit: Yes Status: Acute Code(s): E87.20 - ACIDOSIS, UNSPECIFIED (11) Pressure ulcer, stage 1 Current Visit: Yes Status: Acute Code(s): L89.91 - PRESSURE ULCER OF UNSPECIFIED SITE, STAGE 1 (12) Sjogren syndrome Current Visit: Yes Status: Acute Code(s): M35.00 - SJOGREN SYNDROME, UNSPECIFIED (13) CHF (congestive heart failure) Current Visit: No Status: Acute Code(s): I50.9 - HEART FAILURE, UNSPECIFIED (14) Diabetes mellitus Current Visit: No Status: Chronic Qualifiers: Code(s): E11.9 - TYPE 2 DIABETES MELLITUS WITHOUT COMPLICATIONS (15) Weakness Current Visit: Yes Status: Acute Code(s): R53.1 - WEAKNESS (16) Yeast dermatitis Current Visit: Yes Status: Acute Code(s): B37.2 - CANDIDIASIS OF SKIN AND NAIL (17) Diarrhea Current Visit: Yes Status: Acute Code(s): R19.7 - DIARRHEA, UNSPECIFIED (18) Occult blood positive stool Current Visit: Yes Status: Acute Assessment & Plan: (1) Acute UTI (urinary tract infection) Current Visit: Yes Status: Acute Assessment & Plan: - culture with pseudomonas- abx changed to levaquin - renal dosed - WBC 10.8 - Temp 99.0 last night and 100.7 the previous day. - BC x2 ordered Code(s): N39.0 - URINARY TRACT INFECTION, SITE NOT SPECIFIED (2) Acute kidney injury superimposed on CKD Current Visit: Yes Status: Acute Assessment & Plan: -Patient of Dr. Lopez -baseline creat 1.1-1.8 - Creat 1.11 today - IVF 03/25 - Creat 2.09, BL 1.08 Code(s): N17.9 - ACUTE KIDNEY FAILURE, UNSPECIFIED; N18.9 - CHRONIC KIDNEY DISEASE, UNSPECIFIED (3) Hypokalemia Current Visit: Yes Status: Acute Assessment & Plan: - tele - K+ 3.4- replaced- trend 03/25 - resolved Code(s): E87.6 - HYPOKALEMIA (4) Metabolic acidosis Current Visit: Yes Status: Acute Assessment & Plan: - Co2 18 - continue sodium bicarb BID - + diarrhea Code(s): E87.20 - ACIDOSIS, UNSPECIFIED (5) Chronic anemia Current Visit: Yes Status: Acute Assessment & Plan: - Chronic iron def - Continue ferrous sulfate - Hgb 7.4- trend - + occult stool - GS consult 03/25 - HGB 7.4 - EGD/ Colonoscopy today - PPI Code(s): D64.9 - ANEMIA, UNSPECIFIED (6) Lupus Current Visit: Yes Status: Acute Code(s): [id number] - -Follows with Dr. Webb OP (7) Sick sinus syndrome Current Visit: Yes Status: Acute Assessment & Plan: -noted with pacemaker Code(s): I49.5 - SICK SINUS SYNDROME (8) HTN (hypertension) Current Visit: Yes Status: Acute Assessment & Plan: -Remains elevated - continue home meds coreg, hydralazine TID dosing, add amlodipine, add clonodine 0.1mg QHS-hold lisinopril due to BETTY 03/24 - increased amlodipine Code(s): I10 - ESSENTIAL (PRIMARY) HYPERTENSION (9) Sjogren syndrome Current Visit: Yes Status: Acute Assessment & Plan: -continue home meds Code(s): M35.00 - SJOGREN SYNDROME, UNSPECIFIED (10) CHF (congestive heart failure) Current Visit: Yes Status: Acute Assessment & Plan: -Echo done OP last Sunday - pending read by cardiology -Echo from 12/07/22 reviewed EF 50-55% IMPRESSION: 1) MILD TO MODERATE ASYMMETRIC LEFT VENTRICULAR HYPERTROPHY WITHOUT EVIDENCE OF LEFT VENTRICULAR OUTFLOW TRACT OBSTRUCTION. 2) LOW NORMAL LEFT VENTRICULAR SYSTOLIC FUNCTION. 3) CALCIFIC AORTIC SCLEROSIS WITHOUT EVIDENCE OF ANY STENOSIS. 4) MODERATE MITRAL REGURGITATION. 5) TRACE TRICUSPID REGURGITATION. -does not appear to be in exacerbation - no edema on exam -Daily weights- monitor I&O's -watch for fluid overload -CXR 03/21 Impression: Limited chest. New cardiomegaly with small left effusion, possible mild/early CHF. Superimposed pneumonia not completely excluded. -BNP -Hold lasix due to BETTY -continue Imdur/coreg Continue afterload control with blood pressure Code(s): I50.9 - HEART FAILURE, UNSPECIFIED (11) Diabetes mellitus Current Visit: No Status: Chronic Qualifiers: Assessment & Plan: -ADA diet -SSI -A1c 6.38- controlled Code(s): E11.9 - TYPE 2 DIABETES MELLITUS WITHOUT COMPLICATIONS (12) Hyponatremia Current Visit: Yes Status: Acute Assessment & Plan: -resolved Code(s): E87.1 - HYPO-OSMOLALITY AND HYPONATREMIA (13) Incontinence associated dermatitis Current Visit: Yes Status: Acute Assessment & Plan: -Turn q2h -purewick -barrier cream Code(s): L25.8 - UNSPECIFIED CONTACT DERMATITIS DUE TO OTHER AGENTS; R32 - UNSPE CIFIED URINARY INCONTINENCE (14) Pressure ulcer, stage 1 Current Visit: Yes Status: Acute Assessment & Plan: -see incontinence dermatitis- pictures in chart Code(s): L89.91 - PRESSURE ULCER OF UNSPECIFIED SITE, STAGE 1 (15) HLD (hyperlipidemia) Current Visit: Yes Status: Acute Assessment & Plan: -continue statin Code(s): N39.0 - URINARY TRACT INFECTION, SITE NOT SPECIFIED Code(s): E11.9 - TYPE 2 DIABETES MELLITUS WITHOUT COMPLICATIONS (15) Weakness Current Visit: Yes Status: Acute Assessment & Plan: - PT eval and treat Code(s): R53.1 - WEAKNESS (16) Yeast dermatitis Current Visit: Yes Status: Acute Assessment & Plan: - groin regions - Nystatin powder Code(s): B37.2 - CANDIDIASIS OF SKIN AND NAIL (17) Diarrhea Current Visit: Yes Status: Acute Assessment & Plan: - C-Diff negative - Probiotics - Imodium Code(s): R19.7 - DIARRHEA, UNSPECIFIED (18) Occult blood positive stool Current Visit: Yes Status: Acute Assessment & Plan: -03/24 + Occult stool - GS consulted- Prep to start today with colonoscopy tomorrow. - H&H Q6 03/25 - Hgb 7.4 - EGD/ Colonoscopy today - PPI (19) Thrombocytopenia Current Visit: Yes Status: Acute Assessment & Plan: - associated with OP meds prescribed by Rheumatology? - + bruising on BL arms in various stages of healing - PLT 108 VTE: Heparin d/c -bilateral SCD due to anemia Dispo: 1-2 days Code Status: full code
[2024-03-25] MEDS: Lactated Ringers 1,000 ML IV SCH (13:58)
[2024-03-25] MEDS ORDERED: Xylocaine-Mpf 2% 5 Ml Vial ONE (16:00)
[2024-03-25] MEDS ORDERED: DIPRIVAN 200 MG/20 ML IV ONE (16:00)
[2024-03-26 05:58] LABS: Hematocrit 22.6 % (34.1-44.9); Hemoglobin 7.1 g/dL (11.2-15.7); Mean Cell Volume 104.1 fL (79.4-94.8); Mean Corpuscular Hemoglobin 32.7 pg (25.6-32.2); Mean Corpuscular Hgb Concent. 31.4 g/dL (32.2-35.5); Mean Platelet Volume 10.1 fL (9.4-12.3); Platelet Count 88 x10^3/uL (182-369); Red Blood Count 2.17 x10^6/uL (3.93-5.22); Red Cell Distribution Width 18.6 % (11.7-14.4); White Blood Count 11.2 x10^3/uL (3.98-10.04)
[2024-03-26 06:02] LABS: ALBUMIN 2.4 g/dL (3.5-5.0); ANION GAP 12.5 MEQ/L (5-15); BILIRUBIN,TOTAL 0.7 mg/dL (0.2-1.3); Calcium 7.8 mg/dL (8.4-10.2); Creatinine 1 2.38 mg/dL (0.52-1.04); Potassium 4.3 mmol/L (3.5-5.1); Total Protein 4.9 g/dL (6.3-8.2)
[2024-03-26 06:18] LABS: ANISOCYTOSIS 1+; BAND 7 % (0.0-2.0); Lymphocytes 16 % (19.3-51.7); Metamyelocyte 4 %; Monocyte 4 % (4.7-12.5); Neutrophils 67 % (34.0-71.1); Nucleated Red Blood Cell 2 %; Poikilocytosis 1+; Polychromasia 1+; Promyelocyte 2 %; Spherocyte 1+; Total Cells Counted 100
[2024-03-26 06:19] LABS: Platelet Estimate DECREASED (NORMAL)
[2024-03-26] MEDS: Sodium Bicarbonate 50 MEQ/50 ML VIAL*** 150 MEQ in Dextrose 5%/Water IV Soln. 1000 ML 1... IV SCH (08:30)
[2024-03-26] MEDS: Protonix 40MG Tablet PO SCH (08:55)
[2024-03-26] MEDS: MEDICATION ON HOLD MC SCH (09:01)
--- NOTE | 2024-03-26 12:50 | PCM.NOTE ---
Date and Time: 03/26/24 1243 Subjective Assessment: 03/24/24 is a 83 year old female hypertension, CKD, RA, stage III, DM2, lupus, Sjogren's, sick sinus syndrome,recurrent UTI's, anemia, CHF, and peripheral neuropathy who presented to ED 03/21/24 with complaints of dysuria, frequency, subjective fevers, nausea, and vomiting for the past week. She reports she has had recurrent UTI's for several months now and has been prescribed cefpodoxime most recently by her insurance sales manager Dr. Lopez. She denies hematuria or flank pain. Patient is incontinent with multiple areas of dermatitis on her buttocks. She also reports a poor appetite and energy level, shortness of breath with exertion, and occasional constipation. Denies cp, abdominal pain, BECERRA, or diarrhea. Upon exam patient is euvolemic with clear lung sounds on auscultation. Upon presentation patient hypertensive. Lab findings remarkable for leukocytosis at 12.0, hyponatremia at 130, hypokalemia at 3.3, acidosis with co2 at 18, BETTY with BUN at 71, and creat 2.73 (baseline 1.3-1.8). UA with positive nitrites and leukocytes. Patient given 500ml fluid bolus and ceftriaxone in ED. Admitted for UTI and Acute on chronic kidney disease. Levaquin changed to Merrem yesterday. Last night pt began vomiting and having diarrhea. HGB dropped to 7.4. Occult stool +. Pt does not want to take Merrem and felt this caused her sxs last night. Changed antibiotics back to Levaquin per pt request. Per sensitivity this will also work well for UTI. + fever of 99 last night, and up to 100.7 the previous day, blood cultures x2 ordered today. Pt continues to have BETTY. Amlodipine increased to 10mg today as morning BP 185/80. Will continue to monitor. K+ 3.4 replaced. General surgery consulted for + occult and anemia. Plan is to start prep today and Colonoscopy tomorrow. Pt continues to have weakness. She denies CP, SOB. 03/25/24 Pt resting in bed. She states she is feeling weak but better and would like to be able to go home today. She is scheduled for an EGD and colonoscopy today. Hgb stable at 7.4. Continue antibiotics for UTI. Depending on results of EGD/ Colonoscopy that will determine if she is able to d/c. She likeley needs another day d/t weakness. She refused to work with PT yesterday, encouraged her to try today. She did not have a fever overnight. BCx2 still pending. She continues to have some BETTY, continue IVF. She denies Cp, SOB, Abd. pain. She did have some N/V overnight. 03/26/24 Pt resting in bed. Yesterday she had an EGD and Colonoscopy late evening. Per GS she was found to have pre-pyloric ulcers, gastritis, diverticulosis, and several biopsies were done. Hgb 7.1 today. She denies dark or bloody stools last night. Denies N/V/D. Co2 14 and sodium bicarb gtt started. will recheck labs at 1400 today. Creat increased at 2.38. Nephrology consulted. Allopurinol stopped. Continue Levaquin for UTI, pharmacy to renal dose. Pt denies any further concerns and states she actually feels better today. She is willing to work with PT today to assess home needs. - Review of Systems Constitutional: Weakness, No Fever, No Chills Eyes: No Symptoms Ears, Nose, & Throat: No Symptoms Respiratory: No Cough, No Short Of Breath Cardiac: No Chest Pain, No Edema, No Syncope Abdominal/Gastrointestinal: No Abdominal Pain, No Nausea, No Vomiting, No Diarrhea Genitourinary Symptoms: No Dysuria Musculoskeletal: No Back Pain, No Neck Pain Skin: No Rash Neurological: No Dizziness, No Focal Weakness, No Sensory Changes Psychological: No Symptoms Endocrine: No Symptoms Hematologic/Lymphatic: No Symptoms Immunological/Allergic: No Symptoms Objective Exam General Appearance: no apparent distress, alert Neurologic Exam: alert, oriented x 3, cooperative, normal mood/affect, nml cerebellar function, sensation nml, motor weakness, No motor deficits Skin Exam: normal color, warm, dry Wound Assessment: Skin/Wound Assessment Wound/Incision Assessment Start: 03/21/24 14:08 Text: Status: Active Freq: Q6H Protocol: Document 03/26/24 11:00 AR (Rec: 03/26/24 11:12 AR [id number]) Wound/Incision Assessment Left Buttock Wound Assessment Shift Assessment Wound Type scar from previous pressure wound Drainage Amount None Right Upper Buttock Wound Assessment Shift Assessment Wound Type purple area, non-blanchable Wound Stage Deep Tissue Injury Surrounding Tissue [place] Right Buttock Wound Assessment Shift Assessment Wound Type Pressure Ulcer Wound Stage Stage II Drainage Amount None Surrounding Tissue [place] Wound Photo Photo Taken No Eye Exam: PERRL, EOMI, eyes nml inspection Ears, Nose, Throat Exam: normal ENT inspection, pharynx normal, moist mucous membranes Neck Exam: normal inspection, non-tender, supple, full range of motion Respiratory Exam: normal breath sounds, lungs clear, No respiratory distress Cardiovascular Exam: regular rate/rhythm, normal heart sounds Gastrointestinal/Abdomen Exam: soft, No tenderness, No mass Extremity Exam: normal inspection, normal range of motion Back Exam: normal inspection, normal range of motion, No CVA tenderness, No vertebral tenderness Pelvic Exam: deferred Rectal Exam: deferred Objective Data Vital Signs: Vital Signs - 24 hr Temp Pulse Resp BP Pulse Ox 03/26/24 11:30 97.5 F 69 18 169/70 93 L 03/26/24 07:49 99.5 F 65 18 150/67 93 L 03/26/24 04:00 97.8 F 67 16 129/62 92 L 03/25/24 23:32 97.9 F 69 16 150/66 93 L 03/25/24 20:00 97.8 F 73 18 153/69 93 L 03/25/24 14:07 99.2 F 73 17 146/68 92 L Pain Assessment - Last Documented Pain Intensity 0 Pain Scale Used 0-10 Pain Scale Intake and Output: Intake & Output 03/24/24 03/25/24 03/26/24 03/27/24 11:59 11:59 11:59 11:59 Intake Total 2960 1367 2311 Output Total 1600 200 Balance 1360 1367 2111 Weight 74.6 kg 75.2 kg 75.2 kg Lab Results: Lab Results-Last 24 Hours 03/21/24 03/25/24 03/26/24 Range/Units 10:50 21:04 05:11 WBC 11.2 H (3.98-10.04) x10^3/uL RBC 2.17 L (3.93-5.22) x10^6/uL Hgb 7.1 L (11.2-15.7) g/dL Hct 22.6 L (34.1-44.9) % MCV 104.1 H (79.4-94.8) fL MCH 32.7 H (25.6-32.2) pg MCHC 31.4 L (32.2-35.5) g/dL RDW 18.6 H (11.7-14.4) % Plt Count 88 L (182-369) x10^3/uL MPV 10.1 (9.4-12.3) fL Segmented Neutrophils 67 (34.0-71.1) % Band Neutrophils 7 H (0.0-2.0) % Lymphocytes (Manual) 16 L (19.3-51.7) % Monocytes (Manual) 4 L (4.7-12.5) % Metamyelocytes 4 % Promyelocytes 2 % Nucleated RBCs 2 % Platelet Estimate DECREASED (NORMAL) RBC Morphology ABNORMAL Polychromasia 1+ Poikilocytosis 1+ Anisocytosis 1+ Spherocytes 1+ Smear Path Review Sodium (135-145) mmol/L Potassium (3.5-5.1) mmol/L Chloride (98-107) mmol/L Carbon Dioxide (22-30) mmol/L Anion Gap (5-15) MEQ/L BUN (7-17) mg/dL Creatinine (0.52-1.04) mg/dL Estimated GFR ML/MIN Glucose (74-106) mg/dL POC Glucometer 160 H (74 to 106) mg/dL Calcium (8.4-10.2) mg/dL Total Bilirubin (0.2-1.3) mg/dL AST (14-36) U/L ALT (0-35) U/L Alkaline Phosphatase (38-126) U/L Serum Total Protein (6.3-8.2) g/dL Albumin (3.5-5.0) g/dL 03/26/24 03/26/24 03/26/24 Range/Units 05:11 06:56 12:03 WBC (3.98-10.04) x10^3/uL RBC (3.93-5.22) x10^6/uL Hgb (11.2-15.7) g/dL Hct (34.1-44.9) % MCV (79.4-94.8) fL MCH (25.6-32.2) pg MCHC (32.2-35.5) g/dL RDW (11.7-14.4) % Plt Count (182-369) x10^3/uL MPV (9.4-12.3) fL Segmented Neutrophils (34.0-71.1) % Band Neutrophils (0.0-2.0) % Lymphocytes (Manual) (19.3-51.7) % Monocytes (Manual) (4.7-12.5) % Metamyelocytes % Promyelocytes % Nucleated RBCs % Platelet Estimate (NORMAL) RBC Morphology Polychromasia Poikilocytosis Anisocytosis Spherocytes Smear Path Review Sodium 136 (135-145) mmol/L Potassium 4.3 (3.5-5.1) mmol/L Chloride 114 H (98-107) mmol/L Carbon Dioxide 14 L* (22-30) mmol/L Anion Gap 12.5 (5-15) MEQ/L BUN 37 H (7-17) mg/dL Creatinine 2.38 H (0.52-1.04) mg/dL Estimated GFR 20.0 ML/MIN Glucose 99 (74-106) mg/dL POC Glucometer 92 144 H (74 to 106) mg/dL Calcium 7.8 L (8.4-10.2) mg/dL Total Bilirubin 0.70 (0.2-1.3) mg/dL AST 22 (14-36) U/L ALT 17 (0-35) U/L Alkaline Phosphatase 50 (38-126) U/L Serum Total Protein 4.9 L (6.3-8.2) g/dL Albumin 2.4 L (3.5-5.0) g/dL Multi-Disciplinary Progress Notes: Multi-Disciplinary Progress Notes 03/26/24 12:17 Case Management Note by Maki Shah S/W PATIENT- SHE CONTINUES TO DECLINE ANY HHC AND PLANS TO DC HOME TO HER PLF AT TIME OF DC WITH HER SPOUSE Initialized on 03/26/24 12:17 - END OF NOTE 03/25/24 13:33 Occupational Therapy Note by Elena (Owen#[id number])[facility] OT followed up with patient regarding evaluation, but patient continues to be NPO for EGD and colonoscopy this date. She declines any needs prior to d/c, OT will follow up as appropriate. Initialized on 03/25/24 13:33 - END OF NOTE Assessment/Plan (1) Acute UTI (urinary tract infection) Current Visit: Yes Status: Acute Code(s): N39.0 - URINARY TRACT INFECTION, SITE NOT SPECIFIED (2) Acute kidney injury superimposed on CKD Current Visit: Yes Status: Acute Code(s): N17.9 - ACUTE KIDNEY FAILURE, U NSPECIFIED; N18.9 - CHRONIC KIDNEY DISEASE, UNSPECIFIED (3) Chronic anemia Current Visit: Yes Status: Acute Code(s): D64.9 - ANEMIA, UNSPECIFIED (4) HLD (hyperlipidemia) Current Visit: Yes Status: Acute Code(s): E78.5 - HYPERLIPIDEMIA, UNSPECIFIED (5) HTN (hypertension) Current Visit: Yes Status: Acute Code(s): I10 - ESSENTIAL (PRIMARY) HYPERTENSION (6) Hypokalemia Current Visit: Yes Status: Acute Code(s): E87.6 - HYPOKALEMIA (7) Hyponatremia Current Visit: Yes Status: Acute Code(s): E87.1 - HYPO-OSMOLALITY AND HYP ONATREMIA (8) Incontinence associated dermatitis Current Visit: Yes Status: Acute Code(s): L25.8 - UNSPECIFIED CONTACT DERMATITIS DUE TO OTHER AGENTS; R32 - UNSPECIFIED URINARY INCONTINENCE (9) Lupus Current Visit: Yes Status: Acute Code(s): [id number] - (10) Metabolic acidosis Current Visit: Yes Status: Acute Code(s): E87.20 - ACIDOSIS, UNSPECIFIED (11) Pressure ulcer, stage 1 Current Visit: Yes Status: Acute Code(s): L89.91 - PRESSURE ULCER OF UNSPECIFIED SITE, STAGE 1 (12) Sjogren syndrome Current Visit: Yes Status: Acute Code(s): M35.00 - SJOGREN SYNDROME, UNSPECIFIED (13) CHF (congestive heart failure) Current Visit: No Status: Acute Code(s): I50.9 - HEART FAILURE, UNSPECIFIED (14) Diabetes mellitus Current Visit: No Status: Chronic Qualifiers: Code(s): E11.9 - TYPE 2 DIABETES MELLITUS WITHOUT COMPLICATIONS (15) Weakness Current Visit: Yes Status: Acute Code(s): R53.1 - WEAKNESS (16) Yeast dermatitis Current Visit: Yes Status: Acute Code(s): B37.2 - CANDIDIASIS OF SKIN AND NAIL (17) Diarrhea Current Visit: Yes Status: Acute Code(s): R19.7 - DIARRHEA, UNSPECIFIED (18) Occult blood positive stool Current Visit: Yes Status: Acute (19) Thrombocytopenia Current Visit: Yes Status: Acute Assessment & Plan: (1) Acute UTI (urinary tract infection) Current Visit: Yes Status: Acute Assessment & Plan: - culture with pseudomonas- abx changed to levaquin - renal dosed - WBC 10.8 - Temp 99.0 last night and 100.7 the previous day. - BC x2 ordered 03/26 - BC x2 negative - no further fever Code(s): N39.0 - URINARY TRACT INFECTION, SITE NOT SPECIFIED (2) Acute kidney injury superimposed on CKD Current Visit: Yes Status: Acute Assessment & Plan: -Patient of Dr. Lopez -baseline creat 1.1-1.8 - Creat 1.11 today - IVF 03/25 - Creat 2.09, BL 1.08 03/26 - Creat 2.38 - sodium bicarb gtt started Code(s): N17.9 - ACUTE KIDNEY FAILURE, UNSPECIFIED; N18.9 - CHRONIC KIDNEY DISEASE, UNSPECIFIED (3) Hypokalemia Current Visit: Yes Status: Acute Assessment & Plan: - tele - K+ 3.4- replaced- trend 03/25 - resolved Code(s): E87.6 - HYPOKALEMIA (4) Metabolic acidosis Current Visit: Yes Status: Acute Assessment & Plan: - Co2 18 - continue sodium bicarb BID - + diarrhea 03/26 - Denies N/V/D overnight - Changed sodium bicarb to IV gtt - CO2 14- recheck at 1400 Code(s): E87.20 - ACIDOSIS, UNSPECIFIED (5) Chronic anemia Current Visit: Yes Status: Acute Assessment & Plan: - Chronic iron def anemia - Continue ferrous sulfate - Hgb 7.4- trend - + occult stool - GS consult 03/25 - HGB 7.4 - EGD/ Colonoscopy today - PPI 03/26 - Hgb 7.1 Code(s): D64.9 - ANEMIA, UNSPECIFIED (6) Lupus Current Visit: Yes Status: Acute Code(s): [id number] - -Follows with Dr. Webb OP (7) Sick sinus syndrome Current Visit: Yes Status: Acute Assessment & Plan: -noted with pacemaker - Tele Code(s): I49.5 - SICK SINUS SYNDROME (8) HTN (hypertension) Current Visit: Yes Status: Acute Assessment & Plan: -Remains elevated - continue home meds coreg, hydralazine TID dosing, add amlodipine, add clonodine 0.1mg QHS-hold lisinopril due to BETTY 03/24 - increased amlodipine 03/25 - Bp improved today- trend Code(s): I10 - ESSENTIAL (PRIMARY) HYPERTENSION (9) Sjogren syndrome Current Visit: Yes Status: Acute Assessment & Plan: -continue home meds Code(s): M35.00 - SJOGREN SYNDROME, UNSPECIFIED (10) CHF (congestive heart failure) Current Visit: Yes Status: Acute Assessment & Plan: -Echo done OP last Sunday - pending read by cardiology -Echo from 12/07/22 reviewed EF 50-55% IMPRESSION: 1) MILD TO MODERATE ASYMMETRIC LEFT VENTRICULAR HYPERTROPHY WITHOUT EVIDENCE OF LEFT VENTRICULAR OUTFLOW TRACT OBSTRUCTION. 2) LOW NORMAL LEFT VENTRICULAR SYSTOLIC FUNCTION. 3) CALCIFIC AORTIC SCLEROSIS WITHOUT EVIDENCE OF ANY STENOSIS. 4) MODERATE MITRAL REGURGITATION. 5) TRACE TRICUSPID REGURGITATION. -does not appear to be in exacerbation - no edema on exam -Daily weights- monitor I&O's -watch for fluid overload -CXR 03/21 Impression: Limited chest. New cardiomegaly with small left effusion, possible mild/early CHF. Superimposed pneumonia not completely excluded. -BNP -Hold lasix due to BETTY -continue Imdur/coreg Continue afterload control with blood pressure Code(s): I50.9 - HEART FAILURE, UNSPECIFIED (11) Diabetes mellitus Current Visit: No Status: Chronic Qualifiers: Assessment & Plan: -ADA diet -SSI -A1c 6.38- controlled Code(s): E11.9 - TYPE 2 DIABETES MELLITUS WITHOUT COMPLICATIONS (12) Hyponatremia Current Visit: Yes Status: Acute Assessment & Plan: -resolved Code(s): E87.1 - HYPO-OSMOLALITY AND HYPONATREMIA (13) Incontinence associated dermatitis Current Visit: Yes Status: Acute Assessment & Plan: -Turn q2h -purewick -barrier cream Code(s): L25.8 - UNSPECIFIED CONTACT DERMATITIS DUE TO OTHER AGENTS; R32 - UNSPECIFIED URINARY INCONTINENCE (14) Pressure ulcer, stage 1 Current Visit: Yes Status: Acute Assessment & Plan: -see incontinence dermatitis- pictures in chart Code(s): L89.91 - PRESSURE ULCER OF UNSPECIFIED SITE, STAGE 1 (15) HLD (hyperlipidemia) Current Visit: Yes Status: Acute Assessment & Plan: -continue statin Code: E78.5- HLD (16) Weakness Current Visit: Yes Status: Acute Assessment & Plan: - PT eval and treat Code(s): R53.1 - WEAKNESS (17) Yeast dermatitis Current Visit: Yes Status: Acute Assessment & Plan: - groin regions - Nystatin powder Code(s): B37.2 - CANDIDIASIS OF SKIN AND NAIL (18) Diarrhea Current Visit: Yes Status: Acute Assessment & Plan: - C-Diff negative - Probiotics - Imodium 03/26 - resolved Code(s): R19.7 - DIARRHEA, UNSPECIFIED (19) Occult blood positive stool Current Visit: Yes Status: Acute Assessment & Plan: -03/24 + Occult stool - GS consulted- Prep to start today with colonoscopy tomorrow. - H&H Q6 03/25 - Hgb 7.4 - EGD/ Colonoscopy- Per GS she was found to have pre-pyloric ulcers, gastritis, diverticulosis, and several biopsies were done. - PPI 03/26 - Hgb 7.1 today.- repeat H&H at 1400 (20) Thrombocytopenia Current Visit: Yes Status: Acute Assessment & Plan: - associated with OP meds prescribed by Rheumatology? - + bruising on BL arms in various stages of healing - PLT 108 - Heparin held 03/26 - Plt 88- trend VTE: bilateral SCD due to anemia Dispo: 1-2 days Code Status: full code
[2024-03-26] MEDS: PHARMACY RENAL DOSING MC ONE (15:52)
[2024-03-26 16:12] LABS: Hematocrit 24.3 % (34.1-44.9)
[2024-03-26 16:25] LABS: ALBUMIN 2.8 g/dL (3.5-5.0); ANION GAP 14.1 MEQ/L (5-15); BILIRUBIN,TOTAL 0.8 mg/dL (0.2-1.3); Creatinine 1 2.82 mg/dL (0.52-1.04); EST GLOMERULAR FILTRATION RATE 16.3 ML/MIN; Potassium 4.7 mmol/L (3.5-5.1); Total Protein 5.4 g/dL (6.3-8.2)
[2024-03-26] MEDS: SODIUM BICARBONATE PO SCH (21:55)
[2024-03-27 05:35] LABS: Hematocrit 21.5 % (34.1-44.9); Mean Cell Volume 100.5 fL (79.4-94.8); Mean Corpuscular Hemoglobin 31.8 pg (25.6-32.2); Mean Corpuscular Hgb Concent. 31.6 g/dL (32.2-35.5); Mean Platelet Volume 10.5 fL (9.4-12.3); Platelet Count 94 x10^3/uL (182-369); Red Blood Count 2.14 x10^6/uL (3.93-5.22); Red Cell Distribution Width 18.6 % (11.7-14.4); White Blood Count 9.4 x10^3/uL (3.98-10.04)
[2024-03-27 05:53] LABS: Hemoglobin 6.8 g/dL (11.2-15.7)
[2024-03-27 06:01] LABS: ALBUMIN 2.5 g/dL (3.5-5.0); ANION GAP 11.8 MEQ/L (5-15); BILIRUBIN,TOTAL 0.7 mg/dL (0.2-1.3); Calcium 7.7 mg/dL (8.4-10.2); Creatinine 1 2.87 mg/dL (0.52-1.04); Potassium 4.1 mmol/L (3.5-5.1); Total Protein 4.9 g/dL (6.3-8.2)
[2024-03-27 06:42] LABS: BAND 10 % (0.0-2.0); Lymphocytes 17 % (19.3-51.7); Metamyelocyte 5 %; Monocyte 5 % (4.7-12.5); Neutrophils 62 % (34.0-71.1); Nucleated Red Blood Cell 1 %; Promyelocyte 1 %; Total Cells Counted 100
[2024-03-27 06:43] LABS: ANISOCYTOSIS 1+; Poikilocytosis 1+; Polychromasia 1+; Spherocyte 1+
[2024-03-27 06:47] LABS: Platelet Estimate NORMAL (NORMAL)
[2024-03-27 07:10] VITALS: TEMP 97.7
[2024-03-27 07:55] LABS: ABO TYPING O; Antibody Screen NEGATIVE (NEGATIVE); RH TYPING NEGATIVE
[2024-03-27 07:58] LABS: CROSS MATCH (PRBC) COMPATIBLE (COMPATIBLE)
[2024-03-27] MEDS: Sodium Chloride 0.9% 500 ML 500 ML IV SCH (09:30)
--- NOTE | 2024-03-27 10:20 | PCM.DS ---
Discharge Summary Date of Admission: 03/21/24 13:25 Date of Discharge: 03/27/24 Admitting Physician: DYLAN MCKEE MD Consults: Consults on Case 03/24/24 09:37 Consult Surgery ROUTINE 03/26/24 08:07 Consult Nephrology ROUTINE Primary Care Provider: CORI HODGEYESH Allergies Allergies dapagliflozin [From Farxiga] Adverse Reaction (Unknown, Verified 03/21/24 10:21) doxazosin Adverse Reaction (Unknown, Verified 03/21/24 10:21) rituximab [From Rituxan] Adverse Reaction (Unknown, Verified 03/21/24 10:21) Hospital Summary - Hospital Course Hospital Course: 03/24/24 is a 83 year old female hypertension, CKD, RA, stage III, DM2, lupus, Sjogren's, sick sinus syndrome,recurrent UTI's, anemia, CHF, and peripheral neuropathy who presented to ED 03/21/24 with complaints of dysuria, frequency, subjective fevers, nausea, and vomiting for the past week. She reports she has had recurrent UTI's for several months now and has been prescribed cefpodoxime most recently by her haunted history tour guide Dr. Lopez. She denies hematuria or flank pain. Patient is incontinent with multiple areas of dermatitis on her buttocks. She also reports a poor appetite and energy level, shortness of breath with exertion, and occasional constipation. Denies cp, abdominal pain, BECERRA, or diarrhea. Upon exam patient is euvolemic with clear lung sounds on auscultation. Upon presentation patient hypertensive. Lab findings remarkable for leukocytosis at 12.0, hyponatremia at 130, hypokalemia at 3.3, acidosis with co2 at 18, BETTY with BUN at 71, and creat 2.73 (baseline 1.3-1.8). UA with positive nitrites and leukocytes. Patient given 500ml fluid bolus and ceftriaxone in ED. Admitted for UTI and Acute on chronic kidney disease. Levaquin changed to Merrem yesterday. Last night pt began vomiting and having diarrhea. HGB dropped to 7.4. Occult stool +. Pt does not want to take Merrem and felt this caused her sxs last night. Changed antibiotics back to Levaquin per pt request. Per sensitivity this will also work well for UTI. + fever of 99 last night, and up to 100.7 the previous day, blood cultures x2 ordered today. Pt continues to have BETTY. Amlodipine increased to 10mg today as morning BP 185/80. Will continue to monitor. K+ 3.4 replaced. General surgery consulted for + occult and anemia. Plan is to start prep today and Colonoscopy tomorrow. Pt continues to have weakness. She denies CP, SOB. 03/25/24 Pt resting in bed. She states she is feeling weak but better and would like to be able to go home today. She is scheduled for an EGD and colonoscopy today. Hgb stable at 7.4. Continue antibiotics for UTI. Depending on results of EGD/ Colonoscopy that will determine if she is able to d/c. She likeley needs another day d/t weakness. She refused to work with PT yesterday, encouraged her to try today. She did not have a fever overnight. BCx2 still pending. She continues to have some BETTY, continue IVF. She denies Cp, SOB, Abd. pain. She did have some N/V overnight. 03/26/24 Pt resting in bed. Yesterday she had an EGD and Colonoscopy late evening. Per GS she was found to have pre-pyloric ulcers, gastritis, diverticulosis, and several biopsies were done. Hgb 7.1 today. She denies dark or bloody stools last night. Denies N/V/D. Co2 14 and sodium bicarb gtt started. will recheck labs at 1400 today. Creat increased at 2.38. Nephrology consulted. Allopurinol stopped. Continue Levaquin for UTI, pharmacy to renal dose. Pt denies any further concerns and states she actually feels better today. She is willing to work with PT today to assess home needs. 03/27/24 Pt resting in bed and states she feels worse today. Hgb 6.8 and 1 unit PRBC ordered. Yesterday nephrology consulted and recommended transfer as she is a complicated pt and needs close monitoring. She refused transfer. Nephrology called back again yesterday evening and she again refused transfer as it would be to hard on her to drive that far and she likes the care here. After discussion with case management she is wiling to transfer today. Notifed nephrology- Dr. Lopez. Bruising of BLLE and BLUE worsening. She is feeling weaker. Bicarb gtt stopped last night and PO bicarb started again as her kidney function worsened with IVF. She has + 3 pitting edema of BLLE. She denies CP, SOB, abd pain, N/V/D. - Vitals & Intake/Output Vital Signs: Vital Signs Temperature 97.7 F 03/27/24 07:09 Pulse Rate 72 03/27/24 07:09 Respiratory Rate 16 03/27/24 07:09 Blood Pressure 143/68 03/27/24 07:09 O2 Sat by Pulse Oximetry 95 03/27/24 07:09 Intake & Output: Intake & Output 03/24/24 03/25/24 03/26/24 03/27/24 11:59 11:59 11:59 11:59 Intake Total 2960 1367 2311 2126 Output Total 1600 200 400 Balance 1360 1367 2111 1726 Weight 74.6 kg 75.2 kg 75.2 kg - Lab Result Diagrams: 03/27/24 04:30 03/27/24 04:30 Lab Results-Last 24 Hrs: Lab Results-Last 24 Hours 03/26/24 03/26/24 03/26/24 Range/Units 12:03 16:05 16:05 WBC (3.98-10.04) x10^3/uL RBC (3.93-5.22) x10^6/uL Hgb 8.0 L (11.2-15.7) g/dL Hct 24.3 L (34.1-44.9) % MCV (79.4-94.8) fL MCH (25.6-32.2) pg MCHC (32.2-35.5) g/dL RDW (11.7-14.4) % Plt Count (182-369) x10^3/uL MPV (9.4-12.3) fL Segmented Neutrophils (34.0-71.1) % Band Neutrophils (0.0-2.0) % Lymphocytes (Manual) (19.3-51.7) % Monocytes (Manual) (4.7-12.5) % Metamyelocytes % Promyelocytes % Nucleated RBCs % Platelet Estimate (NORMAL) RBC Morphology Polychromasia Poikilocytosis Anisocytosis Spherocytes Sodium 135 (135-145) mmol/L Potassium 4.7 (3.5-5.1) mmol/L Chloride 109 H (98-107) mmol/L Carbon Dioxide 17 L (22-30) mmol/L Anion Gap 14.1 (5-15) MEQ/L BUN 38 H (7-17) mg/dL Creatinine 2.82 H (0.52-1.04) mg/dL Estimated GFR 16.3 ML/MIN Glucose 217 H (74-106) mg/dL POC Glucometer 144 H (74 to 106) mg/dL Calcium 8.0 L (8.4-10.2) mg/dL Total Bilirubin 0.80 (0.2-1.3) mg/dL AST 27 (14-36) U/L ALT 25 (0-35) U/L Alkaline Phosphatase 62 (38-126) U/L Serum Total Protein 5.4 L (6.3-8.2) g/dL Albumin 2.8 L (3.5-5.0) g/dL ABO Group Rh Factor Antibody Screen (NEGATIVE) Crossmatch (COMPATIBLE) 03/26/24 03/26/24 03/27/24 Range/Units 16:29 21:05 04:30 WBC 9.4 (3.98-10.04) x10^3/uL RBC 2.14 L (3.93-5.22) x10^6/uL Hgb 6.8 L* (11.2-15.7) g/dL Hct 21.5 L (34.1-44.9) % MCV 100.5 H (79.4-94.8) fL MCH 31.8 (25.6-32.2) pg MCHC 31.6 L (32.2-35.5) g/dL RDW 18.6 H (11.7-14.4) % Plt Count 94 L (182-369) x10^3/uL MPV 10.5 (9.4-12.3) fL Segmented Neutrophils 62 (34.0-71.1) % Band Neutrophils 10 H (0.0-2.0) % Lymphocytes (Manual) 17 L (19.3-51.7) % Monocytes (Manual) 5 (4.7-12.5) % Metamyelocytes 5 % Promyelocytes 1 % Nucleated RBCs 1 % Platelet Estimate NORMAL (NORMAL) RBC Morphology ABNORMAL Polychromasia 1+ Poikilocytosis 1+ Anisocytosis 1+ Spherocytes 1+ Sodium (135-145) mmol/L Potassium (3.5-5.1) mmol/L Chloride (98-107) mmol/L Carbon Dioxide (22-30) mmol/L Anion Gap (5-15) MEQ/L BUN (7-17) mg/dL Creatinine (0.52-1.04) mg/dL Estimated GFR ML/MIN Glucose (74-106) mg/dL POC Glucometer 223 H 211 H (74 to 106) mg/dL Calcium (8.4-10.2) mg/dL Total Bilirubin (0.2-1.3) mg/dL AST (14-36) U/L ALT (0-35) U/L Alkaline Phosphatase (38-126) U/L Serum Total Protein (6.3-8.2) g/dL Albumin (3.5-5.0) g/dL ABO Group Rh Factor Antibody Screen (NEGATIVE) Crossmatch (COMPATIBLE) 03/27/24 03/27/24 03/27/24 Range/Units 04:30 06:22 06:50 WBC (3.98-10.04) x10^3/uL RBC (3.93-5.22) x10^6/uL Hgb (11.2-15.7) g/dL Hct (34.1-44.9) % MCV (79.4-94.8) fL MCH (25.6-32.2) pg MCHC (32.2-35.5) g/dL RDW (11.7-14.4) % Plt Count (182-369) x10^3/uL MPV (9.4-12.3) fL Segmented Neutrophils (34.0-71.1) % Band Neutrophils (0.0-2.0) % Lymphocytes (Manual) (19.3-51.7) % Monocytes (Manual) (4.7-12.5) % Metamyelocytes % Promyelocytes % Nucleated RBCs % Platelet Estimate (NORMAL) RBC Morphology Polychromasia Poikilocytosis Anisocytosis Spherocytes Sodium 134 L (135-145) mmol/L Potassium 4.1 (3.5-5.1) mmol/L Chloride 108 H (98-107) mmol/L Carbon Dioxide 18 L (22-30) mmol/L Anion Gap 11.8 (5-15) MEQ/L BUN 42 H (7-17) mg/dL Creatinine 2.87 H (0.52-1.04) mg/dL Estimated GFR 16.0 ML/MIN Glucose 136 H (74-106) mg/dL POC Glucometer 136 H (74 to 106) mg/dL Calcium 7.7 L (8.4-10.2) mg/dL Total Bilirubin 0.70 (0.2-1.3) mg/dL AST 20 (14-36) U/L ALT 16 (0-35) U/L Alkaline Phosphatase 50 (38-126) U/L Serum Total Protein 4.9 L (6.3-8.2) g/dL Albumin 2.5 L (3.5-5.0) g/dL ABO Group O Rh Factor NEGATIVE Antibody Screen NEGATIVE (NEGATIVE) Crossmatch COMPATIBLE (COMPATIBLE) Micro Results-Entire Visit: Microbiology 03/24/24 09:38 Blood Culture - Preliminary Blood 03/24/24 08:08 Blood Culture - Preliminary Blood 03/21/24 10:42 Urine Culture - Final Catherized Pseudomonas Aeruginosa Accuchecks Date 03/27/24 Date 03/26/24 Date 03/26/24 - Procedures and Test Procedures and Tests throughout Hospitalization: Therapy Orders & Screens 03/21/24 14:08 OT Screen per Nursing Assess ONCE Comment: Protocol Order Physician Instructions: Greater than 3 points order OT Admission Screening Reason For Exam: Triggered on Admission Diagnosis: dysuria/frequency Open Wound/Cellutlitis/Pressure Ulcers: Yes Acute Fx/ORIF/Change in wt bearing status: No Severe MUSCULOSKELETAL pain: No ADL Dysfunction: No Acute CVA w/Hemiparesis/Hemiplegia: No Decreased Functional Mobility/Strength: Yes Sprain/Strain: No Acute Post-op Mobility Dysfunction: No Total Points: 6 PT Screen per Nursing Assess ONCE Comment: Protocol Order Physician Instructions: Greater than 3 points order PT Admission Screenin Reason For Exam: Triggered on Admission Diagnosis: dysuria/frequency Open Wound/Cellutlitis/Pressure Ulcers: Yes Acute Fx/ORIF/Change in wt bearing status: No Severe MUSCULOSKELETAL pain: No ADL Dysfunction: No Acute CVA w/Hemiparesis/Hemiplegia: No Decreased Functional Mobility/Strength: Yes Sprain/Strain: No Acute Post-op Mobility Dysfunction: No Total Points: 6 03/21/24 14:21 PT Eval & Treat (MD Order) ONCE Reason for Eval:: weakness Diagnosis: dysuria/frequency OT Eval and Treat (MD Order) ONCE Comment: Physician Instructions: Reason For Exam: Diagnosis: dysuria/frequency 03/25/24 15:02 EKG STAT Comment: Diagnosis: RECURRENT UTI, BETTY, METABOLIC ACIDOSIS, HYPOKALEMIA EKG Reason: Post Cardiac History Discharge Exam General Appearance: no apparent distress, alert Neurologic Exam: alert, oriented x 3, cooperative, normal mood/affect, nml cerebellar function, sensation nml, motor weakness, No motor deficits Eye Exam: PERRL, EOMI, eyes nml inspection Ears, Nose, Throat Exam: normal ENT inspection, pharynx normal, moist mucous membranes Neck Exam: normal inspection, non-tender, supple, full range of motion Respiratory Exam: normal breath sounds, lungs clear, No respiratory distress Cardiovascular Exam: regular rate/rhythm, normal heart sounds, edema (+3 pitting BLLE, LUE) Gastrointestinal/Abdomen Exam: soft, No tenderness, No mass Pelvic Exam: deferred Rectal Exam: deferred Back Exam: normal inspection, normal range of motion, No CVA tenderness, No vertebral tenderness Extremity Exam: normal inspection, normal range of motion Skin Exam: normal color, warm, dry, other (brusing of BLLE) Wound Assessment: Skin/Wound Assessment Wound/Incision Assessment Start: 03/21/24 14:08 Text: Status: Active Freq: Q6H Protocol: Document 03/27/24 08:00 AR (Rec: 03/27/24 10:09 AR [email or web address]) Wound/Incision Assessment Left Buttock Wound Assessment Shift Assessment Wound Type SCAR FROM PREVIOUS PRESSURE ULCER Secondary Dressing mepilex Comment DRESSING C/D/I Right Upper Buttock Wound Type PURPLE AREA NON BLANCHABLE Surrounding Tissue [place] Right Buttock Wound Assessment Shift Assessment Wound Type Pressure Ulcer Wound Stage Stage II Secondary Dressing mepilex Comment DRESSING C/D/I Wound Photo Photo Taken No Final Diagnosis/Problem List - Final Discharge Diagnosis/Problem (1) Acute UTI (urinary tract infection) Current Visit: Yes Status: Acute Code(s): N39.0 - URINARY TRACT INFECTION, SITE NOT SPECIFIED (2) Acute kidney injury superimposed on CKD Current Visit: Yes Status: Acute Code(s): N17.9 - ACUTE KIDNEY FAILURE, UNSPECIFIED; N18.9 - CHRONIC KIDNEY DISEASE, UNSPECIFIED (3) Chronic anemia Current Visit: Yes Status: Acute Code(s): D64.9 - ANEMIA, UNSPECIFIED (4) HLD (hyperlipidemia) Current Visit: Yes Status: Acute Code(s): E78.5 - HYPERLIPIDEMIA, UNSPECIFIED (5) HTN (hypertension) Current Visit: Yes Status: Acute Code(s): I10 - ESSENTIAL (PRIMARY) HYPERTENSION (6) Hypokalemia Current Visit: Yes Status: Acute Code(s): E87.6 - HYPOKALEMIA (7) Hyponatremia Current Visit: Yes Status: Acute Code(s): E87.1 - HYPO-OSMOLALITY AND HYPONATREMIA (8) Incontinence associated dermatitis Current Visit: Yes Status: Acute Code(s): L25.8 - UNSPECIFIED CONTACT DERMATITIS DUE TO OTHER AGENTS; R32 - UNSPECIFIED URINARY INCONTINENCE (9) Lupus Current Visit: Yes Status: Acute Code(s): [id number] - (10) Metabolic acidosis Current Visit: Yes Status: Acute Code(s): E87.20 - ACIDOSIS, UNSPECIFIED (11) Pressure ulcer, stage 1 Current Visit: Yes Status: Acute Code(s): L89.91 - PRESSURE ULCER OF UNSPECIFIED SITE, STAGE 1 (12) Sjogren syndrome Current Visit: Yes Status: Acute Code(s): M35.00 - SJOGREN SYNDROME, UNSPECIFIED (13) CHF (congestive heart failure) Current Visit: No Status: Acute Code(s): I50.9 - HEART FAILURE, UNSPECIFIED (14) Diabetes mellitus Current Visit: No Status: Chronic Code(s): E11.9 - TYPE 2 DIABETES MELLITUS WITHOUT COMPLICATIONS (15) Weakness Current Visit: Yes Status: Acute Code(s): R53.1 - WEAKNESS (16) Yeast dermatitis Current Visit: Yes Status: Acute Code(s): B37.2 - CANDIDIASIS OF SKIN AND NAIL (17) Diarrhea Current Visit: Yes Status: Acute Code(s): R19.7 - DIARRHEA, UNSPECIFIED (18) Occult blood positive stool Current Visit: Yes Status: Acute (19) Thrombocytopenia Current Visit: Yes Status: Acute Assessment & Plan: (1) Acute UTI (urinary tract infection) Current Visit: Yes Status: Acute Assessment & Plan: - culture with pseudomonas- abx changed to levaquin - renal dosed - WBC 10.8 - Temp 99.0 last night and 100.7 the previous day. - BC x2 ordered 03/26 - BC x2 negative - no further fever Code(s): N39.0 - URINARY TRACT INFECTION, SITE NOT SPECIFIED (2) Acute kidney injury superimposed on CKD Current Visit: Yes Status: Acute Assessment & Plan: -Patient of Dr. Lopez -baseline creat 1.1-1.8 - Creat 1.11 today - IVF 03/25 - Creat 2.09, BL 1.08 03/26 - Creat 2.38 - sodium bicarb gtt started - nephrology consult 03/27 - Creat 2.87- worsening - Pt willing to transfer to higher level of care per nephrology recs Code(s): N17.9 - ACUTE KIDNEY FAILURE, UNSPECIFIED; N18.9 - CHRONIC KIDNEY DISEASE, UNSPECIFIED (3) Hypokalemia Current Visit: Yes Status: Acute Assessment & Plan: - tele - K+ 3.4- replaced- trend 03/25 - resolved Code(s): E87.6 - HYPOKALEMIA (4) Metabolic acidosis Current Visit: Yes Status: Acute Assessment & Plan: - Co2 18 - continue sodium bicarb BID - + diarrhea 03/26 - Denies N/V/D overnight - Changed sodium bicarb to IV gtt - CO2 14- recheck at 1400 03/27 - Bibarb gtt stopped yesterday evening as BETTY worsening- changed to PO bicarb - CO@ 18- improved Code(s): E87.20 - ACIDOSIS, UNSPECIFIED (5) Chronic anemia Current Visit: Yes Status: Acute Assessment & Plan: - Chronic iron def anemia - Continue ferrous sulfate - Hgb 7.4- trend - + occult stool - GS consult 03/25 - HGB 7.4 - EGD/ Colonoscopy today - PPI 03/26 - Hgb 7.1 03/27 - Hgb 6.8- 1 unit PRBC ordered- trend Code(s): D64.9 - ANEMIA, UNSPECIFIED (6) Lupus Current Visit: Yes Status: Acute Code(s): [id number] - -Follows with Dr. Webb OP (7) Sick sinus syndrome Current Visit: Yes Status: Acute Assessment & Plan: -noted with pacemaker - Tele Code(s): I49.5 - SICK SINUS SYNDROME (8) HTN (hypertension) Current Visit: Yes Status: Acute Assessment & Plan: -Remains elevated - continue home meds coreg, hydralazine TID dosing, add amlodipine, add clonodine 0.1mg QHS-hold lisinopril due to BETTY 03/24 - increased amlodipine 03/25 - Bp improved today- trend Code(s): I10 - ESSENTIAL (PRIMARY) HYPERTENSION (9) Sjogren syndrome Current Visit: Yes Status: Acute Assessment & Plan: -continue home meds Code(s): M35.00 - SJOGREN SYNDROME, UNSPECIFIED (10) CHF (congestive heart failure) Current Visit: Yes Status: Acute Assessment & Plan: -Echo done OP last Sunday - pending read by cardiology -Echo from 12/07/22 reviewed EF 50-55% IMPRESSION: 1) MILD TO MODERATE ASYMMETRIC LEFT VENTRICULAR HYPERTROPHY WITHOUT EVIDENCE OF LEFT VENTRICULAR OUTFLOW TRACT OBSTRUCTION. 2) LOW NORMAL LEFT VENTRICULAR SYSTOLIC FUNCTION. 3) CALCIFIC AORTIC SCLEROSIS WITHOUT EVIDENCE OF ANY STENOSIS. 4) MODERATE MITRAL REGURGITATION. 5) TRACE TRICUSPID REGURGITATION. -does not appear to be in exacerbation - no edema on exam -Daily weights- monitor I&O's -watch for fluid overload -CXR 03/21 Impression: Limited chest. New cardiomegaly with small left effusion, possible mild/early CHF. Superimposed pneumonia not completely excluded. -BNP -Hold lasix due to BETTY -continue Imdur/coreg Continue afterload control with blood pressure Code(s): I50.9 - HEART FAILURE, UNSPECIFIED (11) Diabetes mellitus Current Visit: No Status: Chronic Qualifiers: Assessment & Plan: -ADA diet -SSI -A1c 6.38- controlled Code(s): E11.9 - TYPE 2 DIABETES MELLITUS WITHOUT COMPLICATIONS (12) Hyponatremia Current Visit: Yes Status: Acute Assessment & Plan: -resolved Code(s): E87.1 - HYPO-OSMOLALITY AND HYPONATREMIA (13) Incontinence associated dermatitis Current Visit: Yes Status: Acute Assessment & Plan: -Turn q2h -purewick -barrier cream Code(s): L25.8 - UNSPECIFIED CONTACT DERMATITIS DUE TO OTHER AGENTS; R32 - UNSPECIFIED URINARY INCONTINENCE (14) Pressure ulcer, stage 1 Current Visit: Yes Status: Acute Assessment & Plan: -see incontinence dermatitis- pictures in chart Code(s): L89.91 - PRESSURE ULCER OF UNSPECIFIED SITE, STAGE 1 (15) HLD (hyperlipidemia) Current Visit: Yes Status: Acute Assessment & Plan: -continue statin Code: E78.5- HLD (16) Weakness Current Visit: Yes Status: Acute Assessment & Plan: - PT eval and treat Code(s): R53.1 - WEAKNESS (17) Yeast dermatitis Current Visit: Yes Status: Acute Assessment & Plan: - groin regions - Nystatin powder Code(s): B37.2 - CANDIDIASIS OF SKIN AND NAIL (18) Diarrhea Current Visit: Yes Status: Acute Assessment & Plan: - C-Diff negative - Probiotics - Imodium 03/26 - resolved Code(s): R19.7 - DIARRHEA, UNSPECIFIED (19) Occult blood positive stool Current Visit: Yes Status: Acute Assessment & Plan: -03/24 + Occult stool - GS consulted- Prep to start today with colonoscopy tomorrow. - H&H Q6 03/25 - Hgb 7.4 - EGD/ Colonoscopy- Per GS she was found to have pre-pyloric ulcers, gastritis, diverticulosis, and several biopsies were done. - PPI 03/26 - Hgb 7.1 today.- repeat H&H at 1400 03/27 - Hgb 6.8- 1 unit PRBC ordered- trend (20) Thrombocytopenia Current Visit: Yes Status: Acute Assessment & Plan: - associated with OP meds prescribed by Rheumatology? - + bruising on BL arms in various stages of healing - PLT 108 - Heparin held 03/26 - Plt 88- trend 03/27 - trend - Will need hematology F/U Op - Discharge Discharge Date: 03/27/24 Disposition[facility] Condition: Stable Prescriptions: New Clonidine HCl 0.1 mg [Clonidine 0.1 mg Tablet] 0.1 mg PO QHS tablet Loperamide HCl 2 mg [Imodium 2 mg] 2 mg PO Q4H PRN PRN cap PRN Reason: Diarrhea Levofloxacin [Levofloxacin 500 MG Tablet] 500 mg PO QOD tablet Amlodipine Besylate 5 mg [Norvasc 5 mg] 10 mg PO QAM tablet Nystatin Powder 15 gm [Nystop Powder 15 gm] 1 gm TP BID PANTOPRAZOLE 40 mg Tablet [Protonix 40MG Tablet] 40 mg PO BID tablet Sodium Bicarbonate 650 mg PO BID tablet Acetaminophen 325 mg [Tylenol 325 mg] 650 mg PO Q6H PRN PRN tablet PRN Reason: Pain, Fever, Headache Continue Atorvastatin Calcium [Lipitor 20MG Tablet] 10 mg PO HS Gabapentin [Neurontin] 300 mg PO TID Isosorbide Mononitrate [Isosorbide Mononitrate ER] 60 mg PO DAILY Aspirin EC 81 mg [Ecotrin 81 mg] 81 mg PO DAILY Folic Acid 1 mg [Folate 1 mg] 1 mg PO DAILY carvediloL [Carvedilol] 25 mg PO BID #60 tablet lisinopriL [Lisinopril] 10 mg PO DAILY Ferrous Sulfate 325 mg PO BID allopurinoL [Zyloprim] 100 mg PO BID Furosemide [Lasix] 40 mg PO DAILY Hydralazine HCl 100 mg PO DAILY Glimepiride 2 mg PO DAILY methylPREDNISolone [Methylprednisolone] 4 mg PO DAILY Hydrocodone/Acetaminophen [Hydrocodone-Acetamin 5-325 mg] 1 tab PO TID PRN PRN Reason: Pain Additional Instructions: HOLD ASPIRIN AND NSAIDS FOR 2 WEEKS FROM PROCEDURE ON 03/25/24 Follow up with: AMBER BALES MD [CONSULTING PHYSICIAN] - 04/28/24 2:30 pm KATHIE HODGE MD [Primary Care Provider] -
[2024-03-27 12:28] VITALS: BP 152/65; PULSE 68; RESP 13; O2SAT 93
--- NOTE | 2024-03-28 11:17 | OP ---
SURGERY DATE/TIME: 03/25/2024 [id number] PREOPERATIVE DIAGNOSIS: History of colon polyps as well as history of severe anemia. POSTOPERATIVE DIAGNOSES: 1) Multiple prepyloric ulcers with evidence of past bleeding (likely source of anemia). 2) Gastritis with few proximal erosions. 3) Minimal duodenitis with superficial erosions. 4) Fairly normal esophagus. 5) Fair on the limited side colon prep. 6) Diverticulosis, left colon. 7) Small cecal polyp. 8) Small transverse colon polyp. 9) Withdrawal time was approximately 12 minutes. ASA class 3. SURGEON: Sj Abebe MD ESTIMATED BLOOD LOSS: Minimal. INDICATIONS: As noted above. The risks and benefits were explained in detail. Consent obtained. DESCRIPTION OF PROCEDURE AND FINDINGS: Patient was taken to the endoscopy room. MAC anesthesia was induced. After official time-out and no disagreement with planned procedure, bite block positioned. Video gastroscope passed down the esophagus to the junction of the third and fourth portions of the duodenum. There was a little bit of erythema in the duodenum, maybe some very, very minimal superficial erosions. No ulcers. Back in the stomach, there were at least 3 small prepyloric ulcers. They looked like they had some dark clot over the top, looked like it had some evidence of bleeding in the past. Otherwise, the patient had a little bit of gastritis with superficial erosions in the proximal stomach, GE junction. Z line was fairly crisp. Esophagus was fairly normal. Cold biopsy had been taken in the antrum for H pylori. Attention was then turned to colonoscopy. Digital rectal exam did not reveal any rectal masses. She did have some internal hemorrhoids. Videocolonoscope was inserted and passed up through the tortuous sigmoid, descending, transverse, and ascending colon. With external pressure, scope was passed around to the cecum. Appendiceal orifice and valve well visualized and photo documented. Prep overall was on the fair but very limited side with some liquidy semi-solid stools throughout the colon. It was suctioned and irrigated as clear as possible. It did limit the exam for very small lesions. There was a small 2 mm polyp that was hot biopsy polypectomied in the cecum. Another one in the transverse colon removed with hot biopsy polypectomy. Otherwise, she had diverticulosis in the left colon. No signs of any large polyps, masses, or obstructing lesions. It was felt likely her anemia was the result of these ulcers up in the prepyloric area, so she will continue proton pump inhibitors and continue following her hemoglobin. Could consider following up upper endoscopy in 10 weeks or so after proton pump inhibitor treatment. Avoid nonsteroidals or aspirin or oral steroids in the interim. Findings discussed with family out in the waiting area.
== END 2024-03-27 13:58 | disposition short-term general hospital (02) | DRG 982 ==
LOC: ED 09:48 → MED SURG 13:25 → OBSVTOIN 13:25
PROVIDERS: ADMIT Internal Medicine; ATTEND Internal Medicine
PROC: 0DB38ZX Excision of Lower Esophagus, Via Natural or Artificial Opening Endoscopic, Diagnostic (ICD-10-PCS; principal; 2024-03-25)
PROC: 0DBH0ZZ Excision of Cecum, Open Approach (ICD-10-PCS; 2024-03-25)
PROC: 0DBL0ZZ Excision of Transverse Colon, Open Approach (ICD-10-PCS; 2024-03-25)
DX: N39.0 Urinary tract infection, site not specified (principal); E87.1 Hypo-osmolality and hyponatremia; N17.9 Acute kidney failure, unspecified; E87.20 Acidosis, unspecified; D64.9 Anemia, unspecified; E78.5 Hyperlipidemia, unspecified; B96.20 Unspecified Escherichia coli [E. coli] as the cause of diseases classified elsewhere; E11.22 Type 2 diabetes mellitus with diabetic chronic kidney disease; I12.9 Hypertensive chronic kidney disease with stage 1 through stage 4 chronic kidney disease, or unspecified chronic kidney disease; N18.30 Chronic kidney disease, stage 3 unspecified; I50.9 Heart failure, unspecified; E87.6 Hypokalemia; L25.8 Unspecified contact dermatitis due to other agents; R32 Unspecified urinary incontinence; M32.9 Systemic lupus erythematosus, unspecified; L89.301 Pressure ulcer of unspecified buttock, stage 1; M35.00 Sjogren syndrome, unspecified; R53.1 Weakness; B37.2 Candidiasis of skin and nail; R19.7 Diarrhea, unspecified; R19.5 Other fecal abnormalities; D69.6 Thrombocytopenia, unspecified; Z09 Encounter for follow-up examination after completed treatment for conditions other than malignant neoplasm; Z86.0100 Personal history of colon polyps, unspecified; K64.8 Other hemorrhoids; K27.9 Peptic ulcer, site unspecified, unspecified as acute or chronic, without hemorrhage or perforation; K29.70 Gastritis, unspecified, without bleeding; K29.80 Duodenitis without bleeding; K57.30 Diverticulosis of large intestine without perforation or abscess without bleeding; K63.5 Polyp of colon; Z79.899 Other long term (current) drug therapy
CPT/HCPCS: 00813; 0241U; 36000; 36415; 36430; 43239; 45384; 71046; 76770; 80048; 80053; 81001; 82570; 82607; 82728; 82746; 82947; 83036; 83540; 83550; 83605; 83690; 83735; 83880; 84132; 84300; 84540; 85014; 85018; 85025; 86850; 86900; 86901; 86922; 87040; 87077; 87086; 87186; 87493; 93005; 96365; 96374; 99100; 99140; 99285; G0328; P9016; Q3014; 82274; J0696; J1644; J1817; J1956; J2405; J2543; J2704; A9270-GY

== ENCOUNTER 2024-04-01 18:13 | Observation (INO) | payer MEDICARE ==
[2024-04-01 19:25] LABS: Absolute Neutrophil Ct (ANC) 5.81 x10^3/uL (1.56-6.13); BASOPHIL % 0.6 % (0.1-1.2); Basophil (Absolute #) 0.05 x10^3/uL (0.01-0.08); Eosinophil % 0.2 % (0.7-5.8); Eosinophil (Absolute #) 0.02 x10^3/uL (0.04-0.36); Hematocrit 31.2 % (34.1-44.9); Hemoglobin 10.2 g/dL (11.2-15.7); IMMATURE GRAN % 2.3 % (0.001-0.429); Lymphocyte (Absolute #) 1.81 x10^3/uL (1.18-3.74); Lymphocytes % 20.6 % (19.3-51.7); Mean Corpuscular Hemoglobin 32.4 pg (25.6-32.2); Mean Corpuscular Hgb Concent. 32.7 g/dL (32.2-35.5); Mean Platelet Volume 9.7 fL (9.4-12.3); Monocytes % 10.2 % (4.7-12.5); Neutrophil % 66.1 % (34.0-71.1); Platelet Count 118 x10^3/uL (182-369); Red Blood Count 3.15 x10^6/uL (3.93-5.22); Red Cell Distribution Width 18.2 % (11.7-14.4); White Blood Count 8.8 x10^3/uL (3.98-10.04)
[2024-04-01 19:39] LABS: ALBUMIN 3.1 g/dL (3.5-5.0); ANION GAP 14.4 MEQ/L (5-15); BILIRUBIN,TOTAL 0.9 mg/dL (0.2-1.3); Calcium 8.3 mg/dL (8.4-10.2); Creatinine 1 3.55 mg/dL (0.52-1.04); EST GLOMERULAR FILTRATION RATE 12.4 ML/MIN; Potassium 3.9 mmol/L (3.5-5.1); Total Protein 5.8 g/dL (6.3-8.2)
[2024-04-01] MEDS ORDERED: D50W 50 ml Abboject IV ONE (19:56)
[2024-04-01] MEDS: D50W 50 ml Abboject IV ONE (19:57)
[2024-04-01] MEDS ORDERED: Dextrose 5%-NS IV Solution 1000 ML 1,000 ML IV ONE (20:18)
[2024-04-01] MEDS: Dextrose 5%-NS IV Solution 1000 ML 1,000 ML IV SCH (20:21)
[2024-04-01] MEDS: Hydromorphone 1 mg/ml Injection IV ONE (21:27)
--- NOTE | 2024-04-01 21:47 | ERPHSYRPT ---
- History of Present Illness Time Seen by Provider: 04/01/24 18:30 Source: patient Exam Limitations: no limitations Patient Subjective Stated Complaint: pt here for low blood sugar,today she was found on in chair. bs was 43, was given d10 and is now alert,was recently dc w ith UTI and is on antibotics Triage Nursing Assessment: pt arrived per ems, alert, oriented, skin w/d/p, has mulit brusing and red areas to arms, she states from ivs and stick while admitted moves all ext well Physician History: Patient is an 83-year-old female presents to emergency department for evaluation of hypoglycemia. Patient was found unresponsive at home. EMS observed glucose to be 43. Patient received D50. Patient's glucose recheck was 140. Upon arrival patient glucose was 105. Will go with trending downward some. Patient otherwise asymptomatic. Patient felt well back at her baseline. No trauma. No chest pain or shortness of breath. No nausea vomiting or diaphoresis. Patient reports she is diabetic and has not been eating much due to the antibiotic she is on to treat urinary tract infection. Family at bedside. Patient voices no other complaints or concerns at this time. Portions of this note were created with voice recognition technology. There may be grammatical, spelling, punctuation or sound alike errors Timing/Duration: today Severity: moderate Associated Symptoms: nausea Allergies/Adverse Reactions: dapagliflozin [From Farxiga] Adverse Reaction (Unknown, Verified 04/01/24 18:16) doxazosin Adverse Reaction (Unknown, Verified 04/01/24 18:16) rituximab [From Rituxan] Adverse Reaction (Unknown, Verified 04/01/24 18:16) Home Medications: Atorvastatin Calcium [Lipitor 20MG Tablet] 10 mg PO HS 04/11/17 [History] Gabapentin [Neurontin] 300 mg PO TID 04/11/17 [History] Isosorbide Mononitrate [Isosorbide Mononitrate ER] 60 mg PO DAILY 09/17/21 [History] Aspirin EC 81 mg [Ecotrin 81 mg] 81 mg PO DAILY 12/06/22 [History] Folic Acid 1 mg [Folate 1 mg] 1 mg PO DAILY 12/06/22 [History] Ferrous Sulfate 325 mg PO BID 03/13/24 [History] Furosemide [Lasix] 40 mg PO DAILY 03/13/24 [History] Glimepiride 2 mg PO DAILY 03/13/24 [History] Hydralazine HCl 100 mg PO DAILY 03/13/24 [History] Hydrocodone/Acetaminophen [Hydrocodone-Acetamin 5-325 mg] 1 tab PO TID PRN 03/13/24 [History] allopurinoL [Zyloprim] 100 mg PO BID 03/13/24 [History] lisinopriL [Lisinopril] 10 mg PO DAILY 03/13/24 [History] methylPREDNISolone [Methylprednisolone] 4 mg PO DAILY 03/13/24 [History] Hx Tetanus, Diphtheria Vaccination/Date Given: Yes Hx Influenza Vaccination/Date Given: Yes Hx Pneumococcal Vaccination/Date Given: No Immunizations Up to Date: Yes Travel Risk - International Travel Have you traveled outside of the country in past 3 weeks: No - Emerging Infectious Disease Are you exhibiting symptoms associated with any current EIDs: No - Review of Systems Constitutional: No Symptoms, No Fever, No Chills Eyes: No Symptoms Ears, Nose, & Throat: No Symptoms Respiratory: No Symptoms, No Cough, No Dyspnea Cardiac: No Symptoms, No Chest Pain, No Edema, No Syncope Abdominal/Gastrointestinal: No Symptoms, No Abdominal Pain, No Nausea, No Vomiting, No Diarrhea Genitourinary Symptoms: No Symptoms, No Dysuria Musculoskeletal: No Symptoms, No Back Pain, No Neck Pain Skin: No Symptoms, No Rash Neurological: No Symptoms, No Dizziness, No Focal Weakness, No Sensory Changes Psychological: No Symptoms Endocrine: No Symptoms Hematologic/Lymphatic: No Symptoms Immunological/Allergic: No Symptoms All Other Systems: Reviewed and Negative - Past Medical History Pertinent Past Medical History: Yes Neurological History: No Pertinent History ENT History: Cataracts Cardiac History: Arrhythmia, Hypertension, Other Respiratory History: No Pertinent History Endocrine Medical History: Diabetes Type II, Other Musculoskeletal History: Osteoarthritis GI Medical History: No Pertinent History History: Renal Disease Psycho-Social History: No Pertinent History Female Reproductive Disorders: No Pertinent History Other Medical History: L ANKLE FRACTURE, PACEMAKER. 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 No cardiac disease.) - Social History Smoking Status: Never smoker Exposure to second hand smoke: No Drug Use: none Patient Lives Alone: No - Social Determinants of Health Will the patient participate in the screening: Yes Do you worry about a steady place to live?: No Do you have any problems with any of the following?: No known problems In the past 12 months,have you had to go without utilities?: No Transportation Issues: No Has anyone in your support network made you feel unsafe?: No Have you or anyone in your house had to go without enough: No - Nursing Vital Signs Nursing Vital Signs: Initial Vital Signs Blood Pressure 152/76 04/01/24 18:19 O2 Sat by Pulse Oximetry 95 04/01/24 18:19 Pain Scale Pain Intensity 0 - Physical Exam General Appearance: no apparent distress, alert Eye Exam: PERRL/EOMI, eyes nml inspection Ears, Nose, Throat Exam: normal ENT inspection, TMs normal, pharynx normal, dry mucous membranes Neck Exam: normal inspection, non-tender, supple, full range of motion Respiratory Exam: normal breath sounds, lungs clear, airway intact, No respiratory distress Cardiovascular Exam: regular rate/rhythm, normal heart sounds, normal peripheral pulses Gastrointestinal/Abdomen Exam: soft, normal bowel sounds, No tenderness, No mass Back Exam: normal inspection, normal range of motion, No CVA tenderness, No vertebral tenderness Extremity Exam: normal inspection, normal range of motion, pelvis stable, other (Bilateral lower extremity pitting edema) Neurologic Exam: alert, oriented x 3, cooperative, normal mood/affect, nml cerebellar function, nml station & gait, sensation nml, No motor deficits Skin Exam: normal color, warm, dry, No rash Lymphatic Exam: No adenopathy SpO2 Interpretation: normal SpO2: 97 O2 Delivery: Room Air - Course Nursing assessment & vital signs reviewed: Yes EKG Interpreted by Me: RATE (65), Sinus Rhythm, NORMAL AXIS, NORMAL INTERVALS, NORMAL QRS Ordered Tests: Active Orders 24 hr Category Date Time Status EKG-ER Only STAT Care 04/01/24 21:44 Active IV Insertion STAT Care 04/01/24 19:06 Active POCT Glucose Check STAT Care 04/01/24 18:16 Active CBC W DIFF Stat Lab 04/01/24 19:15 Completed CMP Stat Lab 04/01/24 19:15 Completed POCT GLUCOSE Stat Lab 04/01/24 19:49 Completed POCT GLUCOSE Stat Lab 04/01/24 20:54 Completed POCT GLUCOSE Stat Lab 04/01/24 21:28 Completed UA W/RFX UR CULTURE Stat Lab 04/01/24 19:06 Ordered Transfer Order Routine Transfer 04/01/24 Ordered Medication Summary Generic Name Dose Route Start Last Admin Trade Name Anuj PRN Reason Stop Dose Admin Dextrose/Sodium Chloride 1,000 mls @ 100 mls/hr 04/01/24 20:00 04/01/24 21:33 Dextrose 5%-Ns Iv Solution 1000 Ml IV 05/01/24 19:59 200 mls/hr .Q10H HARMAN Infusion Discontinued Medications Generic Name Dose Route Start Last Admin Trade Name Melitonq PRN Reason Stop Dose Admin Dextrose 50 ml 04/01/24 19:53 04/01/24 19:57 Dextrose 50%-Water 50 Ml Abboject IV 04/01/24 19:54 50 ml STAT ONE Administration Dextrose Confirm 04/01/24 19:56 Dextrose 50%-Water 50 Ml Abboject Administered 04/01/24 19:57 Dose 50 ml IV .STK-MED ONE Hydromorphone HCl 0.5 mg 04/01/24 21:11 04/01/24 21:27 Hydromorphone 1 Mg/1ml Inj IV 04/01/24 21:12 Not Given STAT ONE Lab/Rad Data: Laboratory Result Diagrams 04/01/24 19:15 04/01/24 19:15 Laboratory Results 04/01/24 04/01/24 04/01/24 Range/Units 21:28 20:54 19:49 WBC (3.98-10.04) x10^3/uL RBC (3.93-5.22) x10^6/uL Hgb (11.2-15.7) g/dL Hct (34.1-44.9) % MCV (79.4-94.8) fL MCH (25.6-32.2) pg MCHC (32.2-35.5) g/dL RDW (11.7-14.4) % Plt Count (182-369) x10^3/uL MPV (9.4-12.3) fL Gran % (34.0-71.1) % Immature Gran % (Auto) (0.001-0.429) % Nucleat RBC Rel Count (0.00-0.2) % Eos # (Auto) (0.04-0.36) x10^3/uL Immature Gran # (Auto) (0.001-0.031) x10^3u/L Absolute Lymphs (auto) (1.18-3.74) x10^3/uL Absolute Monos (auto) (0.24-0.86) x10^3/uL Absolute Nucleated RBC (0.00-0.012) x10^3u/L Lymphocytes % (19.3-51.7) % Monocytes % (4.7-12.5) % Eosinophils % (0.7-5.8) % Basophils % (0.1-1.2) % Absolute Granulocytes (1.56-6.13) x10^3/uL Basophils # (0.01-0.08) x10^3/uL Sodium (135-145) mmol/L Potassium (3.5-5.1) mmol/L Chloride (98-107) mmol/L Carbon Dioxide (22-30) mmol/L Anion Gap (5-15) MEQ/L BUN (7-17) mg/dL Creatinine (0.52-1.04) mg/dL Estimated GFR ML/MIN Glucose (74-106) mg/dL POC Glucometer 97 114 H 44 L* (50 to 500) mg/dL Calcium (8.4-10.2) mg/dL Total Bilirubin (0.2-1.3) mg/dL AST (14-36) U/L ALT (0-35) U/L Alkaline Phosphatase (38-126) U/L Serum Total Protein (6.3-8.2) g/dL Albumin (3.5-5.0) g/dL 04/01/24 04/01/24 Range/Units 19:15 19:15 WBC 8.8 (3.98-10.04) x10^3/uL RBC 3.15 L (3.93-5.22) x10^6/uL Hgb 10.2 L (11.2-15.7) g/dL Hct 31.2 L (34.1-44.9) % MCV 99.0 H (79.4-94.8) fL MCH 32.4 H (25.6-32.2) pg MCHC 32.7 (32.2-35.5) g/dL RDW 18.2 H (11.7-14.4) % Plt Count 118 L (182-369) x10^3/uL MPV 9.7 (9.4-12.3) fL Gran % 66.1 (34.0-71.1) % Immature Gran % (Auto) 2.3 H (0.001-0.429) % Nucleat RBC Rel Count 0.0 (0.00-0.2) % Eos # (Auto) 0.02 L (0.04-0.36) x10^3/uL Immature Gran # (Auto) 0.20 H (0.001-0.031) x10^3u/L Absolute Lymphs (auto) 1.81 (1.18-3.74) x10^3/uL Absolute Monos (auto) 0.90 H (0.24-0.86) x10^3/uL Absolute Nucleated RBC 0.00 (0.00-0.012) x10^3u/L Lymphocytes % 20.6 (19.3-51.7) % Monocytes % 10.2 (4.7-12.5) % Eosinophils % 0.2 L (0.7-5.8) % Basophils % 0.6 (0.1-1.2) % Absolute Granulocytes 5.81 (1.56-6.13) x10^3/uL Basophils # 0.05 (0.01-0.08) x10^3/uL Sodium 133 L (135-145) mmol/L Potassium 3.9 (3.5-5.1) mmol/L Chloride 104 (98-107) mmol/L Carbon Dioxide 18 L (22-30) mmol/L Anion Gap 14.4 (5-15) MEQ/L BUN 46 H (7-17) mg/dL Creatinine 3.55 H (0.52-1.04) mg/dL Estimated GFR 12.4 ML/MIN Glucose 59 L (74-106) mg/dL POC Glucometer (50 to 500) mg/dL Calcium 8.3 L (8.4-10.2) mg/dL Total Bilirubin 0.90 (0.2-1.3) mg/dL AST 23 (14-36) U/L ALT 18 (0-35) U/L Alkaline Phosphatase 53 (38-126) U/L Serum Total Protein 5.8 L (6.3-8.2) g/dL Albumin 3.1 L (3.5-5.0) g/dL - Progress Progress: improved Progress Note: Patient reassessed. She is comfortable. Patient endorsed to Dr. Merino at 9:30 PM. 83-year-old female presents to emergency department via EMS for evaluation of hypoglycemia. Physical exam reveals bilateral lower extremity swelling that is reported as chronic. Dry oral mucous membranes patient otherwise at her baseline. No trauma. Workup reveals known renal insufficiency. Patient observed for several hours in our ED. Patient's blood glucose observed to trend downward. Patient started on D5 half-normal. Blood glucose appears to be stabilized. Patient is comfortable. Patient denies pain. No chest pain or shortness of breath. No nausea vomiting or diaphoresis. Patient will require hospitalization for further evaluation and treatment. Patient accepted by Dr. Boyle hospitalist at 9:30 PM. Plan of care discussed with patient and family. They agree to admission [facility] for further evaluation and treatment. EKG sinus rhythm Portions of this note were created with voice recognition technology. There may be grammatical, spelling, punctuation or sound alike errors Complexity problem addressed is moderate acute complicated. No critical care time. Complex of data reviewed and analyzed is extensive. Test ordered chest reviewed results analyzed and correlated clinically with history and physical exam. Management discussed with Dr. Boyle who accepts admission to observation. Risk of complication and or risk of morbidity/mortality of patient management is high. Patient requires hospitalization for further evaluation and treatment. Portions of this note were created with voice recognition technology. There may be grammatical, spelling, punctuation or sound alike errors 04/01/24 21:49 Counseled pt/family regarding: lab results, diagnosis - Departure Departure Disposition: Home Clinical Impression: Hypoglycemia, Chronic renal insufficiency, Dehydration Condition: Stable Critical Care Time: No Referrals: KATHIE HODGE MD [Primary Care Provider] - Follow up/PCP as directed
[2024-04-01] MEDS ORDERED: HUMALOG SQ PRN (22:56)
--- NOTE | 2024-04-01 23:59 | PCM.HP ---
History of Present Illness - Chief Complaint Chief Complaint: Hypoglycemia Date: 04/01/24 History of Present Illness: is a 83 year old female with h/o HTN, CKD3, DM2, and lupus, brought in due to syncope and hypoglycemia. Patient was recently admitted with recurrent UTI, but she developed worsening BETTY on CKD (as well as anemia) and was transferred to [facility]. She was only discharged two days ago (Sunday), and she says the care was bad there and she does not want to go back, and she doesn't know what they did because they wouldn't tell her anything. Today, her family found the patient unconscious. Upon EMS arrival, found to have Glc <40. She responded to initial D50 in the field, and Glc improved, but in the ED, she again dropped in to the 40s, and was given another amp D50 and stated on D5NS drip. Patient states she has been having a bad appetite for about a week, and that the antibiotics she is taking are taking away all taste. She also has not been getting as much fluid intake. She continues to take her glimepiride, last taken this morning. She also states that she is taking her Levaquin daily, although the last order for levaquin was for QOD dosing due to her renal function. She denies further fevers or worsening dysuria. - Review of Systems All Other Systems: Reviewed and Negative Medications & Allergies Home Medications: Home Medication List Atorvastatin Calcium [Lipitor 20MG Tablet] 10 mg PO HS 04/11/17 [History Confirmed 04/01/24] Gabapentin [Neurontin] 300 mg PO TID 04/11/17 [History Confirmed 04/01/24] Isosorbide Mononitrate [Isosorbide Mononitrate ER] 60 mg PO DAILY 09/17/21 [History Confirmed 04/01/24] Aspirin EC 81 mg [Ecotrin 81 mg] 81 mg PO DAILY 12/06/22 [History Confirmed 04/01/24] Folic Acid 1 mg [Folate 1 mg] 1 mg PO DAILY 12/06/22 [History Confirmed 04/01/24] carvediloL [Carvedilol] 25 mg PO BID #60 tablet 12/10/22 [Rx Confirmed 04/01/24] Ferrous Sulfate 325 mg PO BID 03/13/24 [History Confirmed 04/01/24] Furosemide [Lasix] 40 mg PO DAILY 03/13/24 [History Confirmed 04/01/24] Glimepiride 2 mg PO DAILY 03/13/24 [History Confirmed 04/01/24] Hydralazine HCl 100 mg PO DAILY 03/13/24 [History Confirmed 04/01/24] Hydrocodone/Acetaminophen [Hydrocodone-Acetamin 5-325 mg] 1 tab PO TID PRN 03/13/24 [History Confirmed 04/01/24] allopurinoL [Zyloprim] 100 mg PO BID 03/13/24 [History Confirmed 04/01/24] lisinopriL [Lisinopril] 10 mg PO DAILY 03/13/24 [History Confirmed 04/01/24] methylPREDNISolone [Methylprednisolone] 2 mg PO BID 03/13/24 [History Confirmed 04/01/24] Levofloxacin [Levofloxacin 500 MG Tablet] 500 mg PO QOD tablet 03/27/24 [Rx Confirmed 04/01/24] Allergies/Adverse Reactions: Allergies Allergy/AdvReac Type Severity Reaction Status Date / Time dapagliflozin [From Farxiga] AdvReac Unknown Verified 04/01/24 18:16 doxazosin AdvReac Unknown Verified 04/01/24 18:16 rituximab [From Rituxan] AdvReac Unknown Verified 04/01/24 18:16 - Past Medical History Past Medical History: Yes Neurological History: No Pertinent History ENT History: Cataracts Cardiac History: Arrhythmia, Hypertension, Other Respiratory History: No Pertinent History Endocrine Medical History: Diabetes Type II, Other Musculoskelatal History: Osteoarthritis GI Medical History: No Pertinent History History: Renal Disease Pyscho-Social History: No Pertinent History Reproductive Disorders: No Pertinent History Comment: L ANKLE FRACTURE, PACEMAKER. 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 No cardiac disease.) - Social History Smoking Status: Never smoker Exposure to second hand smoke: No Alcohol: None Drug Use: none - Social Determinants of Health Will the patient participate in the screening: Yes Do you worry about a steady place to live?: No Do you have any problems with any of the following?: No known problems In the past 12 months,have you had to go without utilities?: No Have you or anyone in your house had to go without enough: No Transportation Issues: No Has anyone in your support network made you feel unsafe?: No Does the patient want assistance with any of the above?: No - Physical Exam Vital Signs: Vital Signs - 24 hr Temp Pulse Resp BP BP Pulse Ox 04/01/24 22:05 97 04/01/24 22:01 67 18 164/72 95 04/01/24 21:45 68 16 166/69 94 L 04/01/24 21:31 67 17 155/73 96 04/01/24 21:15 156/78 97 04/01/24 21:00 69 20 155/70 94 L 04/01/24 20:46 166/74 92 L 04/01/24 20:30 162/72 88 L 04/01/24 20:16 163/104 97 04/01/24 20:01 63 18 166/78 96 04/01/24 19:45 63 16 163/74 95 04/01/24 19:30 63 17 164/76 94 L 04/01/24 19:00 65 18 166/71 96 04/01/24 18:30 163/79 95 04/01/24 18:23 98.0 F 64 20 152/76 97 04/01/24 18:19 152/76 95 GENERAL: sitting up in bed in no acute distress HENT: atraumatic CV: regular rate & rhythm, no murmurs PULM: Clear to auscultation bilaterally ABD: non-tender, non-distended NEURO: alert, oriented x3, no focal deficits Results - Labs Lab/Micro Results: Lab Results-Last 24 Hours 04/01/24 04/01/24 04/01/24 Range/Units 19:15 19:15 19:49 WBC 8.8 (3.98-10.04) x10^3/uL RBC 3.15 L (3.93-5.22) x10^6/uL Hgb 10.2 L (11.2-15.7) g/dL Hct 31.2 L (34.1-44.9) % MCV 99.0 H (79.4-94.8) fL MCH 32.4 H (25.6-32.2) pg MCHC 32.7 (32.2-35.5) g/dL RDW 18.2 H (11.7-14.4) % Plt Count 118 L (182-369) x10^3/uL MPV 9.7 (9.4-12.3) fL Gran % 66.1 (34.0-71.1) % Immature Gran % (Auto) 2.3 H (0.001-0.429) % Nucleat RBC Rel Count 0.0 (0.00-0.2) % Eos # (Auto) 0.02 L (0.04-0.36) x10^3/uL Immature Gran # (Auto) 0.20 H (0.001-0.031) x10^3u/L Absolute Lymphs (auto) 1.81 (1.18-3.74) x10^3/uL Absolute Monos (auto) 0.90 H (0.24-0.86) x10^3/uL Absolute Nucleated RBC 0.00 (0.00-0.012) x10^3u/L Lymphocytes % 20.6 (19.3-51.7) % Monocytes % 10.2 (4.7-12.5) % Eosinophils % 0.2 L (0.7-5.8) % Basophils % 0.6 (0.1-1.2) % Absolute Granulocytes 5.81 (1.56-6.13) x10^3/uL Basophils # 0.05 (0.01-0.08) x10^3/uL Sodium 133 L (135-145) mmol/L Potassium 3.9 (3.5-5.1) mmol/L Chloride 104 (98-107) mmol/L Carbon Dioxide 18 L (22-30) mmol/L Anion Gap 14.4 (5-15) MEQ/L BUN 46 H (7-17) mg/dL Creatinine 3.55 H (0.52-1.04) mg/dL Estimated GFR 12.4 ML/MIN Glucose 59 L (74-106) mg/dL POC Glucometer 44 L* (50 to 500) mg/dL Calcium 8.3 L (8.4-10.2) mg/dL Total Bilirubin 0.90 (0.2-1.3) mg/dL AST 23 (14-36) U/L ALT 18 (0-35) U/L Alkaline Phosphatase 53 (38-126) U/L Serum Total Protein 5.8 L (6.3-8.2) g/dL Albumin 3.1 L (3.5-5.0) g/dL 04/01/24 04/01/24 Range/Units 20:54 21:28 WBC (3.98-10.04) x10^3/uL RBC (3.93-5.22) x10^6/uL Hgb (11.2-15.7) g/dL Hct (34.1-44.9) % MCV (79.4-94.8) fL MCH (25.6-32.2) pg MCHC (32.2-35.5) g/dL RDW (11.7-14.4) % Plt Count (182-369) x10^3/uL MPV (9.4-12.3) fL Gran % (34.0-71.1) % Immature Gran % (Auto) (0.001-0.429) % Nucleat RBC Rel Count (0.00-0.2) % Eos # (Auto) (0.04-0.36) x10^3/uL Immature Gran # (Auto) (0.001-0.031) x10^3u/L Absolute Lymphs (auto) (1.18-3.74) x10^3/uL Absolute Monos (auto) (0.24-0.86) x10^3/uL Absolute Nucleated RBC (0.00-0.012) x10^3u/L Lymphocytes % (19.3-51.7) % Monocytes % (4.7-12.5) % Eosinophils % (0.7-5.8) % Basophils % (0.1-1.2) % Absolute Granulocytes (1.56-6.13) x10^3/uL Basophils # (0.01-0.08) x10^3/uL Sodium (135-145) mmol/L Potassium (3.5-5.1) mmol/L Chloride (98-107) mmol/L Carbon Dioxide (22-30) mmol/L Anion Gap (5-15) MEQ/L BUN (7-17) mg/dL Creatinine (0.52-1.04) mg/dL Estimated GFR ML/MIN Glucose (74-106) mg/dL POC Glucometer 114 H 97 (50 to 500) mg/dL Calcium (8.4-10.2) mg/dL Total Bilirubin (0.2-1.3) mg/dL AST (14-36) U/L ALT (0-35) U/L Alkaline Phosphatase (38-126) U/L Serum Total Protein (6.3-8.2) g/dL Albumin (3.5-5.0) g/dL Accuchecks Date 04/01/24 Date 04/01/24 Date 04/01/24 Time 21:31 Time 18:17 Time 18:16 Assessment/Plan (1) Hypoglycemia Current Visit: Yes Status: Acute Assessment & Plan: 83 y/o F with h/o CKD3-4, HTN, DM2, and lupus, here with symptomatic hypoglycemia and possible BETTY on CKD ## DM2 with hypoglycemia - persistent hypoglycemia, despite multiple boluses of D50. Low again on the floor now, despite D5 drip. I suspect this is multifactorial in etiology, including her poor PO intake while on PO antibiotics, and continued use of glimepiride in setting of worsening renal function and poor intake. (Should be decreased in dose at her chronic renal function, and probably avoided at her current renal function level.) It is possible as well that taking too much Levaquin is affecting her glucose levels (see below), but the reports of Levaquin-induced hypoglycemia, while published, are rare. Because of the long half-life of glimepiride and its renal excretion, I will expect her to have persistent hypoglycemia at least through tomorrow. - place on D5NS at 100 ml/hr - give another D50 amp now due to Glc 45 - follow glc q2h - if drops again, will change to D10W at 100 ml/hr (patient has poor IV access and cannot tolerate increasing fluid rate, and the only D10 fluid is D10W) - will need to monitor closely until sulfonylurea is out of her system ## Acute kidney injury on chronic kidney disease - patient Cr on admission have been highly variable for the past year, but baseline Cr appears to be around 1.4-2, although she was down to 1.0 as recently as June of this year. Upon transfer out to [facility] last week, her Cr had risen to 2.9. Today she is higher still, with Cr 3.6. It is unclear if this is worse than discharge from [facility], or if patient peaked higher and is still improving. - Give D5NS as above to increase intravascular volume - if have to increase dextrose drip to D10 due to severe hypoglycemia (see abo ve), will have to move to D10W - hold lisinopril and Lasix from home - repeat BMP in AM - obtain records from [facility] to see trajectory of Cr after transfer there last week - if Cr still rising, patient will likely need to transfer still for further evaluation, although patient will likely refuse transfer to [facility]. Last year, patient was to go to [facility] to see her manager respiratory Dr. Sommer, although she refused transfer at that time as well. ## Recurrent cystitis - it is unclear where patient is on her timecourse of antibiotics, although she states she was still taking the Levaquin. Unfortunately, she was taking the 500 mg dose daily instead of every other day, which would be appropriate for her renal function. Her last dose was taken this morning. At her current renal function, she is covered through . - hold Levaquin for the moment; would not need to be restarted until - obtain records from [facility] to confirm patient was discharged on Levaquin and to confirm the end date ## Hypertension - patient mildly hypertensive on arrival. Asymptomatic elevated BP is a chronic problem, not an acute one (see this year's AHA statement on elevated BP in acute care setting), so do not need to aggressively lower this now. As well, could worsen her renal issues if quickly drop her BP. - hold Lasix and lisinopril as above - continue hydralazine, but change from 100 daily dosing to 50 mg q8h due to its short half-life - continue Coreg 25 BID ## Lupus - patient chronically on steroids - continue Medrol 2 mg BID - hold gabapentin due to worsening renal function Code status: Full code Prophylaxis: SQ heparin Diet: Diabetic Dispo: Place in observation, but if patient has worsening renal function, will need to transfer to higher level of care Code(s): E16.2 - HYPOGLYCEMIA, UNSPECIFIED Telemedicine Encounter - Telemedicine Encounter Telemedicine Encounter: "The entirety of this encounter was performed via Telemedicine" This visit was performed using real-time audio and video connection between my location and thepatients locationwith the assistance of a surrogateat the patients location. Written or verbal consent was obtained from the patient/guardian to [facility]. Any patient questions regarding the telemedicine interaction were answered.
[2024-04-02] MEDS: Apresoline 25 MG TABLET PO SCH ×2 (00:16→15:15)
[2024-04-02] MEDS: D50W 50 ml Abboject IV ONE ×2 (00:17→03:21)
[2024-04-02] MEDS: NON-FORMULARY ITEM (Hydralazine Hcl [Hydralazine Hcl] 50 MG Tablet) PO SCH (00:30)
[2024-04-02] MEDS ORDERED: DEXTROSE 10% 250 ML 250 ML IV ONE (03:15)
[2024-04-02] MEDS: DEXTROSE 10% 250 ML 250 ML IV SCH (03:35)
[2024-04-02 05:09] LABS: Hematocrit 29.3 % (34.1-44.9); Hemoglobin 9.4 g/dL (11.2-15.7); Mean Corpuscular Hemoglobin 31.8 pg (25.6-32.2); Mean Corpuscular Hgb Concent. 32.1 g/dL (32.2-35.5); Mean Platelet Volume 10.1 fL (9.4-12.3); Platelet Count 96 x10^3/uL (182-369); Red Blood Count 2.96 x10^6/uL (3.93-5.22); Red Cell Distribution Width 17.6 % (11.7-14.4); White Blood Count 7.7 x10^3/uL (3.98-10.04)
[2024-04-02 05:30] LABS: ANION GAP 13.4 MEQ/L (5-15); Calcium 7.7 mg/dL (8.4-10.2); Creatinine 1 3.3 mg/dL (0.52-1.04); EST GLOMERULAR FILTRATION RATE 13.5 ML/MIN; PREALBUMIN 22.27 mg/dL (17.6-36.0); Potassium 3.5 mmol/L (3.5-5.1)
--- NOTE | 2024-04-02 05:30 | PCM.NOTE ---
Date and Time: 04/02/24519 Subjective Assessment: is a 83 year old female hypertension, CKD, RA, stage III, DM2, lupus, Sjogren's, sick sinus syndrome,recurrent UTI's, anemia, CHF, and peripheral neuropathy admitted 04/02/24 with symptomatic hypoglycemia and BETTY on CKD. Of note patient had recent admission 03/21/24 which resulted in transfer to [facility] for which she was 03/30/24 due to worsening BETTY -patient states she had a bad experience there and does not wish to return. Records being obtained. Patient with persistent hypoglycemia despite multiple boluses of D50. BETTY with Cr level at 3.6 on admission, baseline appears to be around 1.4-2. Recurrent cystitis - patient on levaquin as OP- - she was taking 500mg daily instead of every other day due to kidney function- now being held until . 04/02/24: Met with patient bedside. States she is feeling better today but rather weak and has a dry -sore throat. Discussed case with Amanda García [employer] with nephrology (Rule), patient recently admitted to [facility] under the care of Dr. Lipscomb, patient's baseline around 2.8-3.3, recommends bicarb drip for acidosis. Recommends transfer with worsening creat to [place]. Patient requesting no transfer. Blood glucose levels still on the low end of normal. Will initiate bicarb drip with D5. Records requested from [facility] hospitalization and pending. Denies fever,cough, sob, cp, abdominal pain, BECERRA, dizziness, N/V/D. - Review of Systems Constitutional: No Symptoms Eyes: No Symptoms Ears, Nose, & Throat: Throat Pain Respiratory: No Symptoms Cardiac: No Symptoms Abdominal/Gastrointestinal: No Symptoms Genitourinary Symptoms: No Symptoms Musculoskeletal: No Symptoms Neurological: No Symptoms Psychological: No Symptoms Endocrine: No Symptoms Hematologic/Lymphatic: Easy Bruising Objective Exam General Appearance: no apparent distress Neurologic Exam: alert, oriented x 3, cooperative Skin Exam: ecchymosis (bilateral upper ext) Wound Assessment: Skin/Wound Assessment Wound/Incision Assessment Start: 04/02/24 00:50 Text: Status: Active Freq: Q6H Protocol: Document 04/01/24 23:00 KD (Rec: 04/02/24 04:55 KD [id number]) Wound/Incision Assessment Right Buttock Wound Assessment Admission Wound Type Pressure Ulcer Wound Stage Stage II Drainage Amount None Drainage Odor None/Absent Wound Bed Greatest Portion Dusky Red Surrounding Tissue Dark Red,Edges Rolled Topical Solution/Irrigant Medicated Ointment Primary Dressing Allevyn Life 6x6 dressing Left Buttock Wound Assessment Admission Wound Type Pressure Ulcer Wound Stage Stage II Drainage Amount None Drainage Odor None/Absent Wound Bed Greatest Portion Dusky Red Surrounding Tissue Dark Red,Edges Rolled Topical Solution/Irrigant Medicated Ointment Primary Dressing Allevyn Life 6x6 dressing Bilateral Abdominal Folds Wound Assessment Admission Wound Type gaulding Wound Stage Non Pressure Wound Drainage Amount None Drainage Odor None/Absent General Appearance Open to air,Reddened Surrounding Tissue [place] Topical Solution/Irrigant Medicated Ointment Comment zinc ointment applied Wound Photo Photo Taken Yes Date: 04/01/24 Time: 22:45 Eye Exam: PERRL Ears, Nose, Throat Exam: normal ENT inspection Neck Exam: normal inspection Respiratory Exam: normal breath sounds, lungs clear Cardiovascular Exam: regular rate/rhythm, normal heart sounds Gastrointestinal/Abdomen Exam: soft, normal bowel sounds Extremity Exam: normal inspection Back Exam: normal inspection Pelvic Exam: deferred Rectal Exam: deferred Objective Data Vital Signs: Vital Signs - 24 hr Temp Pulse Resp BP BP Pulse Ox 04/02/24 04:00 97.8 F 64 16 141/61 95 04/02/24 00:00 97.0 F 88 18 150/73 94 L 04/01/24 22:14 97.0 F 88 18 150/73 94 L 04/01/24 22:05 97 04/01/24 22:01 67 18 164/72 95 04/01/24 21:45 68 16 166/69 94 L 04/01/24 21:31 67 17 155/73 96 04/01/24 21:15 156/78 97 04/01/24 21:00 69 20 155/70 94 L 04/01/24 20:46 166/74 92 L 04/01/24 20:30 162/72 88 L 04/01/24 20:16 163/104 97 04/01/24 20:01 63 18 166/78 96 04/01/24 19:45 63 16 163/74 95 04/01/24 19:30 63 17 164/76 94 L 04/01/24 19:00 65 18 166/71 96 04/01/24 18:30 163/79 95 04/01/24 18:23 98.0 F 64 20 152/76 97 04/01/24 18:19 152/76 95 Pain Assessment - Last Documented Pain Intensity 0 Intake and Output: Intake & Output 03/30/24 03/31/24 04/01/24 04/02/24 11:59 11:59 11:59 11:59 Intake Total 551 Balance 551 Weight 80.1 kg Lab Results: Lab Results-Last 24 Hours 04/01/24 04/01/24 04/01/24 Range/Units 19:15 19:15 19:49 WBC 8.8 (3.98-10.04) x10^3/uL RBC 3.15 L (3.93-5.22) x10^6/uL Hgb 10.2 L (11.2-15.7) g/dL Hct 31.2 L (34.1-44.9) % MCV 99.0 H (79.4-94.8) fL MCH 32.4 H (25.6-32.2) pg MCHC 32.7 (32.2-35.5) g/dL RDW 18.2 H (11.7-14.4) % Plt Count 118 L (182-369) x10^3/uL MPV 9.7 (9.4-12.3) fL Gran % 66.1 (34.0-71.1) % Immature Gran % (Auto) 2.3 H (0.001-0.429) % Nucleat RBC Rel Count 0.0 (0.00-0.2) % Eos # (Auto) 0.02 L (0.04-0.36) x10^3/uL Immature Gran # (Auto) 0.20 H (0.001-0.031) x10^3u/L Absolute Lymphs (auto) 1.81 (1.18-3.74) x10^3/uL Absolute Monos (auto) 0.90 H (0.24-0.86) x10^3/uL Absolute Nucleated RBC 0.00 (0.00-0.012) x10^3u/L Lymphocytes % 20.6 (19.3-51.7) % Monocytes % 10.2 (4.7-12.5) % Eosinophils % 0.2 L (0.7-5.8) % Basophils % 0.6 (0.1-1.2) % Absolute Granulocytes 5.81 (1.56-6.13) x10^3/uL Basophils # 0.05 (0.01-0.08) x10^3/uL Sodium 133 L (135-145) mmol/L Potassium 3.9 (3.5-5.1) mmol/L Chloride 104 (98-107) mmol/L Carbon Dioxide 18 L (22-30) mmol/L Anion Gap 14.4 (5-15) MEQ/L BUN 46 H (7-17) mg/dL Creatinine 3.55 H (0.52-1.04) mg/dL Estimated GFR 12.4 ML/MIN Glucose 59 L (74-106) mg/dL POC Glucometer 44 L* (50 to 500) mg/dL Calcium 8.3 L (8.4-10.2) mg/dL Total Bilirubin 0.90 (0.2-1.3) mg/dL AST 23 (14-36) U/L ALT 18 (0-35) U/L Alkaline Phosphatase 53 (38-126) U/L Serum Total Protein 5.8 L (6.3-8.2) g/dL Albumin 3.1 L (3.5-5.0) g/dL 04/01/24 04/01/24 04/01/24 Range/Units 20:54 21:28 23:54 WBC (3.98-10.04) x10^3/uL RBC (3.93-5.22) x10^6/uL Hgb (11.2-15.7) g/dL Hct (34.1-44.9) % MCV (79.4-94.8) fL MCH (25.6-32.2) pg MCHC (32.2-35.5) g/dL RDW (11.7-14.4) % Plt Count (182-369) x10^3/uL MPV (9.4-12.3) fL Gran % (34.0-71.1) % Immature Gran % (Auto) (0.001-0.429) % Nucleat RBC Rel Count (0.00-0.2) % Eos # (Auto) (0.04-0.36) x10^3/uL Immature Gran # (Auto) (0.001-0.031) x10^3u/L Absolute Lymphs (auto) (1.18-3.74) x10^3/uL Absolute Monos (auto) (0.24-0.86) x10^3/uL Absolute Nucleated RBC (0.00-0.012) x10^3u/L Lymphocytes % (19.3-51.7) % Monocytes % (4.7-12.5) % Eosinophils % (0.7-5.8) % Basophils % (0.1-1.2) % Absolute Granulocytes (1.56-6.13) x10^3/uL Basophils # (0.01-0.08) x10^3/uL Sodium (135-145) mmol/L Potassium (3.5-5.1) mmol/L Chloride (98-107) mmol/L Carbon Dioxide (22-30) mmol/L Anion Gap (5-15) MEQ/L BUN (7-17) mg/dL Creatinine (0.52-1.04) mg/dL Estimated GFR ML/MIN Glucose (74-106) mg/dL POC Glucometer 114 H 97 51 L (50 to 500) mg/dL Calcium (8.4-10.2) mg/dL Total Bilirubin (0.2-1.3) mg/dL AST (14-36) U/L ALT (0-35) U/L Alkaline Phosphatase (38-126) U/L Serum Total Protein (6.3-8.2) g/dL Albumin (3.5-5.0) g/dL 04/01/24 04/02/24 04/02/24 Range/Units 23:58 02:00 03:05 WBC (3.98-10.04) x10^3/uL RBC (3.93-5.22) x10^6/uL Hgb (11.2-15.7) g/dL Hct (34.1-44.9) % MCV (79.4-94.8) fL MCH (25.6-32.2) pg MCHC (32.2-35.5) g/dL RDW (11.7-14.4) % Plt Count (182-369) x10^3/uL MPV (9.4-12.3) fL Gran % (34.0-71.1) % Immature Gran % (Auto) (0.001-0.429) % Nucleat RBC Rel Count (0.00-0.2) % Eos # (Auto) (0.04-0.36) x10^3/uL Immature Gran # (Auto) (0.001-0.031) x10^3u/L Absolute Lymphs (auto) (1.18-3.74) x10^3/uL Absolute Monos (auto) (0.24-0.86) x10^3/uL Absolute Nucleated RBC (0.00-0.012) x10^3u/L Lymphocytes % (19.3-51.7) % Monocytes % (4.7-12.5) % Eosinophils % (0.7-5.8) % Basophils % (0.1-1.2) % Absolute Granulocytes (1.56-6.13) x10^3/uL Basophils # (0.01-0.08) x10^3/uL Sodium (135-145) mmol/L Potassium (3.5-5.1) mmol/L Chloride (98-107) mmol/L Carbon Dioxide (22-30) mmol/L Anion Gap (5-15) MEQ/L BUN (7-17) mg/dL Creatinine (0.52-1.04) mg/dL Estimated GFR ML/MIN Glucose (74-106) mg/dL POC Glucometer 51 L 71 L 56 L (50 to 500) mg/dL Calcium (8.4-10.2) mg/dL Total Bilirubin (0.2-1.3) mg/dL AST (14-36) U/L ALT (0-35) U/L Alkaline Phosphatase (38-126) U/L Serum Total Protein (6.3-8.2) g/dL Albumin (3.5-5.0) g/dL 04/02/24 04/02/24 04/02/24 Range/Units 04:03 04:30 05:06 WBC 7.7 (3.98-10.04) x10^3/uL RBC 2.96 L (3.93-5.22) x10^6/uL Hgb 9.4 L (11.2-15.7) g/dL Hct 29.3 L (34.1-44.9) % MCV 99.0 H (79.4-94.8) fL MCH 31.8 (25.6-32.2) pg MCHC 32.1 L (32.2-35.5) g/dL RDW 17.6 H (11.7-14.4) % Plt Count 96 L (182-369) x10^3/uL MPV 10.1 (9.4-12.3) fL Gran % (34.0-71.1) % Immature Gran % (Auto) (0.001-0.429) % Nucleat RBC Rel Count (0.00-0.2) % Eos # (Auto) (0.04-0.36) x10^3/uL Immature Gran # (Auto) (0.001-0.031) x10^3u/L Absolute Lymphs (auto) (1.18-3.74) x10^3/uL Absolute Monos (auto) (0.24-0.86) x10^3/uL Absolute Nucleated RBC (0.00-0.012) x10^3u/L Lymphocytes % (19.3-51.7) % Monocytes % (4.7-12.5) % Eosinophils % (0.7-5.8) % Basophils % (0.1-1.2) % Absolute Granulocytes (1.56-6.13) x10^3/uL Basophils # (0.01-0.08) x10^3/uL Sodium (135-145) mmol/L Potassium (3.5-5.1) mmol/L Chloride (98-107) mmol/L Carbon Dioxide (22-30) mmol/L Anion Gap (5-15) MEQ/L BUN (7-17) mg/dL Creatinine (0.52-1.04) mg/dL Estimated GFR ML/MIN Glucose (74-106) mg/dL POC Glucometer 127 H 97 (50 to 500) mg/dL Calcium (8.4-10.2) mg/dL Total Bilirubin (0.2-1.3) mg/dL AST (14-36) U/L ALT (0-35) U/L Alkaline Phosphatase (38-126) U/L Serum Total Protein (6.3-8.2) g/dL Albumin (3.5-5.0) g/dL Assessment/Plan (1) Hypoglycemia Current Visit: Yes Status: Acute Assessment & Plan: -Bicarb drip with D5- blood glucose levels improved -accucheck q2h Code(s): E16.2 - HYPOGLYCEMIA, UNSPECIFIED (2) Acute kidney injury superimposed on CKD Current Visit: No Status: Acute Assessment & Plan: -Discussed case with patient's nephrology team Amanda García NP - recommends transfer with worsening creat above 2.8-3.3 - bicarb drip for acidosis - avoid neprotoxic medications - hold lisinopril and Lasix from home - [facility] records requested and pending - Consider transfer if Cr still rising - patient does not wish to transfer but will consider if labs are not improving Code(s): N17.9 - ACUTE KIDNEY FAILURE, UNSPECIFIED; N18.9 - CHRONIC KIDNEY DISEASE, UNSPECIFIED (3) Recurrent UTI Current Visit: Yes Status: Acute Assessment & Plan: -Hold levaquin - does not need due to kidney function again until 04/03 -[facility]btain [facility] -Obtain urine specimen Code(s): N39.0 - URINARY TRACT INFECTION, SITE NOT SPECIFIED (4) Lupus Current Visit: Yes Status: Acute Assessment & Plan: - continue Medrol 2 mg BID - home med - hold gabapentin due to worsening renal function Code(s): LJF2601 - (5) Chronic anemia Current Visit: Yes Status: Acute Assessment & Plan: -stable at 9.4, trend - if hgb < 7 transfuse Code(s): D64.9 - ANEMIA, UNSPECIFIED (6) Sick sinus syndrome Current Visit: Yes Status: Acute Assessment & Plan: -noted with pacemaker Code(s): I49.5 - SICK SINUS SYNDROME (7) Sjogren syndrome Current Visit: Yes Status: Acute Assessment & Plan: -continue home meds Code(s): M35.00 - SJOGREN SYNDROME, UNSPECIFIED (8) CHF (congestive heart failure) Current Visit: Yes Status: Acute Assessment & Plan: -Echo from 12/07/22 reviewed EF 50-55% IMPRESSION: 1) MILD TO MODERATE ASYMMETRIC LEFT VENTRICULAR HYPERTROPHY WITHOUT EVIDENCE OF LEFT VENTRICULAR OUTFLOW TRACT OBSTRUCTION. 2) LOW NORMAL LEFT VENTRICULAR SYSTOLIC FUNCTION. 3) CALCIFIC AORTIC SCLEROSIS WITHOUT EVIDENCE OF ANY STENOSIS. 4) MODERATE MITRAL REGURGITATION. 5) TRACE TRICUSPID REGURGITATION. -does not appear to be in exacerbation - no edema on exam -Daily weights- monitor I&O's -watch for fluid overload -Obtain echo from 03/21/24 Code(s): I50.9 - HEART FAILURE, UNSPECIFIED (9) Diabetes mellitus Current Visit: No Status: Chronic Qualifiers: Assessment & Plan: -ADA diet -Hold home meds for now -requiring D5 to maintain blood glucose levels - hold SSI -A1c 6.38- controlled Code(s): E11.9 - TYPE 2 DIABETES MELLITUS WITHOUT COMPLICATIONS (10) HTN (hypertension) Current Visit: No Status: Chronic Qualifiers: Hypertension type: essential hypertension Assessment & Plan: -stable - hold Lasix and lisinopril as above - continue hydralazine, but change from 100 daily dosing to 50 mg q8h due to its short half-life - continue Coreg 25 BID Code status: Full code Prophylaxis: SQ heparin Diet: Diabetic Dispo: Place in observation, but if patient has worsening renal function, will need to transfer to higher level of care Code(s): I10 - ESSENTIAL (PRIMARY) HYPERTENSION
[2024-04-02] MEDS: SODIUM BICARBONATE PO SCH (06:18)
[2024-04-02 07:00] LABS: Slide Review YES
[2024-04-02] MEDS: HEPARIN 5000 UNITS/0.5 ML (HIGH RISK MED) SQ SCH (09:12)
[2024-04-02] MEDS: MEDROL 4 MG PO SCH (09:12)
[2024-04-02] MEDS: ECOTRIN 81 MG PO SCH (09:12)
[2024-04-02] MEDS: Imdur 60MG PO SCH (09:12)
[2024-04-02] MEDS: FEOSOL 325 MG PO SCH (09:13)
[2024-04-02] MEDS: COREG 12.5 MG PO SCH (09:13)
[2024-04-02] MEDS: ZYLOPRIM 100 MG PO SCH (09:13)
[2024-04-02] MEDS: FOLATE 1 MG PO SCH (09:14)
[2024-04-02] MEDS ORDERED: NON-FORMULARY ITEM (Carvedilol [Carvedilol] 25 MG Tablet) PO SCH (10:00)
[2024-04-02] MEDS: Sodium Bicarbonate 50 MEQ/50 ML VIAL*** 150 MEQ in Dextrose 5%/Water IV Soln. 1000 ML 1... IV SCH (11:52)
[2024-04-02] MEDS ORDERED: D50W 50 ml Abboject IV PRN (12:20)
[2024-04-02 12:43] LABS: Appearance Cloudy (Clear); Bacteria None Seen /HPF (None Seen); Bilirubin Negative (Negative); Blood Negative (Negative); Epithelial Cells None Seen /HPF (None Seen); Glucose, Urine Negative (Negative); Hyaline Casts NONE SEEN /LPF (0-2); Ketones Negative (Negative); Leukocyte Esterase Large (Negative); Nitrite Negative (Negative); Ph 5.5 (4.6-8.0); Protein,Urine Dip 30 (Negative); Urobilinogen 0.2 mg/dL (0.2); WBC >100 /HPF (0-5)
[2024-04-02] MEDS: Glutose 15 GM ORAL GEL PO PRN (15:08)
--- NOTE | 2024-04-02 18:30 | XRAY ---
Indication: Bilateral upper extremity edema. Two-dimensional sonogram and color Doppler imaging major venous vessels left and right upper extremities performed. Comparison: None Nonvisualization both cephalic veins and distal right brachial vein due to overlying IV bandage. No thrombus seen in the remaining visualized left and right internal jugular, subclavian, axillary, basilic, radial, and ulnar veins. Visualized veins demonstrate normal compressibility and normal venous waveforms. Impression: 1. Nonvisualization both cephalic and right brachial vein. 2. Remaining left and right upper extremities negative for venous thrombosis.
[2024-04-02] MEDS ORDERED: NON-FORMULARY ITEM (Atorvastatin Calcium 20 MG Tab) PO SCH (22:00)
[2024-04-02] MEDS ORDERED: SODIUM BICARBONATE PO SCH (22:00)
[2024-04-02] MEDS: Zocor 10MG PO SCH (22:29)
[2024-04-02] MEDS: TYLENOL 325 MG PO PRN (22:35)
--- NOTE | 2024-04-03 05:25 | PCM.NOTE ---
Date and Time: 04/03/24523 Subjective Assessment: is a 83 year old female hypertension, CKD, RA, stage III, DM2, lupus, Sjogren's, sick sinus syndrome,recurrent UTI's, anemia, CHF, and peripheral neuropathy admitted 04/02/24 with symptomatic hypoglycemia and BETTY on CKD. Of note patient had recent admission 03/21/24 which resulted in transfer to [facility] for which she was 03/30/24 due to worsening BETTY -patient states she had a bad experience there and does not wish to return. Records being obtained. Patient with persistent hypoglycemia despite multiple boluses of D50. EBTTY with Cr level at 3.6 on admission, baseline appears to be around 1.4-2. Recurrent cystitis - patient on levaquin as OP- - she was taking 500mg daily instead of every other day due to kidney function- now being held until . 04/02/24: Met with patient bedside. States she is feeling better today but rather weak and has a dry -sore throat. Discussed case with Amanda García [employer] with nephrology ([place]), patient recently admitted to [facility] under the care of Dr. Lipscomb, patient's baseline around 2.8-3.3, recommends bicarb drip for acidosis. Recommends transfer with worsening creat to [place]. Patient requesting no transfer. Blood glucose levels still on the low end of normal. Will initiate bicarb drip with D5. Records requested from [facility] hospitalization and pending. Denies fever,cough, sob, cp, abdominal pain, BECERRA, dizziness, N/V/D. 04/03/24: No overnight events noted. Labwork improved with creat at 2.77 today. We have discontinued the bicarb drip/D5 this morning. Blood glucose levels are stabilizing. She is rather weak still. Physical therapy has evaluated her and recommends placement for which patient is agreeable. Plan to observe tonight with possible discharge to care home tomorrow. Patient has completed course of levaquin. - Review of Systems Constitutional: Weakness Eyes: No Symptoms Ears, Nose, & Throat: No Symptoms Respiratory: No Symptoms Cardiac: Edema (BLE 3+ BUE 2+ ) Abdominal/Gastrointestinal: No Symptoms Genitourinary Symptoms: No Symptoms Musculoskeletal: No Symptoms Skin: Other (multiple areas of bruising in various stages of healing to BUE ) Neurological: No Symptoms Psychological: No Symptoms Endocrine: No Symptoms Hematologic/Lymphatic: Anemia, Easy Bruising Immunological/Allergic: No Symptoms Objective Exam General Appearance: no apparent distress Neurologic Exam: alert, oriented x 3, cooperative Skin Exam: ecchymosis (BUE), pale Wound Assessment: Skin/Wound Assessment Wound/Incision Assessment Start: 04/02/24 00:50 Text: Status: Active Freq: Q6H Protocol: Document 04/03/24 05:00 LB (Rec: 04/03/24 05:10 LB [id number]) Wound/Incision Assessment Right Buttock Wound Assessment Shift Assessment Wound Type Pressure Ulcer Wound Stage Stage II Drainage Amount None Drainage Odor None/Absent Wound Bed Greatest Portion Dusky Red Surrounding Tissue Dark Red,Edges Rolled Topical Solution/Irrigant Medicated Ointment Primary Dressing Allevyn Life 6x6 dressing Comment dressing in place did not remove Left Buttock Wound Assessment Shift Assessment Wound Type Pressure Ulcer Wound Stage Stage II Drainage Amount None Drainage Odor None/Absent Wound Bed Greatest Portion Dusky Red Surrounding Tissue Dark Red,Edges Rolled Topical Solution/Irrigant Medicated Ointment Primary Dressing Allevyn Life 6x6 dressing Comment dressing in place, did not remove Bilateral Abdominal Folds Wound Assessment Shift Assessment Wound Type gaulding Wound Stage Non Pressure Wound Drainage Amount None Drainage Odor None/Absent General Appearance Open to air,Reddened Surrounding Tissue [place] Topical Solution/Irrigant Medicated Ointment Comment zinc ointment applied prn Wound Photo Photo Taken No Eye Exam: PERRL Ears, Nose, Throat Exam: normal ENT inspection Neck Exam: normal inspection Respiratory Exam: normal breath sounds, lungs clear Cardiovascular Exam: regular rate/rhythm, normal heart sounds Gastrointestinal/Abdomen Exam: soft, normal bowel sounds Extremity Exam: swelling (BLE 3+ BUE 2+) Back Exam: normal inspection Pelvic Exam: deferred Rectal Exam: deferred Objective Data Vital Signs: Vital Signs - 24 hr Temp Pulse Resp BP Pulse Ox 04/03/24 04:00 98.2 F 74 21 145/67 96 04/02/24 23:48 98.7 F 72 18 186/79 94 L 04/02/24 20:00 98.2 F 79 17 181/79 95 04/02/24 15:24 97.6 F 72 16 156/70 94 L 04/02/24 12:00 97.7 F 109 H 16 142/71 92 L 04/02/24 07:38 97.9 F 66 16 155/67 97 Pain Assessment - Last Documented Pain Intensity 0 Pain Scale Used 0-10 Pain Scale Intake and Output: Intake & Output 03/31/24 04/01/24 04/02/24 04/03/24 11:59 11:59 11:59 11:59 Intake Total 1671 680 Output Total 1000 Balance 1671 -320 Weight 80.1 kg Lab Results: Lab Results-Last 24 Hours 04/02/24 04/02/24 04/02/24 Range/Units 04:30 04:30 06:10 Sodium 130 L (135-145) mmol/L Potassium 3.5 (3.5-5.1) mmol/L Chloride 105 (98-107) mmol/L Carbon Dioxide 15 L* (22-30) mmol/L Anion Gap 13.4 (5-15) MEQ/L BUN 42 H (7-17) mg/dL Creatinine 3.30 H (0.52-1.04) mg/dL Estimated GFR 13.5 ML/MIN Glucose 116 H (74-106) mg/dL POC Glucometer 118 H (74 to 106) mg/dL Calcium 7.7 L (8.4-10.2) mg/dL Prealbumin 22.27 (17.6-36.0) mg/dL Urine Color (Yellow) Urine Appearance (Clear) Urine pH (4.6-8.0) Ur Specific [place] (1.005-1.030) Urine Protein (Negative) Urine Glucose (UA) (Negative) mg/dL Urine Ketones (Negative) Urine Blood (Negative) Urine Nitrite (Negative) Urine Bilirubin (Negative) Urine Urobilinogen (0.2) mg/dL Ur Leukocyte Esterase (Negative) U Hyaline Cast (Auto) (0-2) /LPF Urine Microscopic RBC (0-5) /HPF Urine Microscopic WBC (0-5) /HPF Ur Epithelial Cells (None Seen) /HPF Urine Bacteria (None Seen) /HPF Urine Culture Reflexed (NO) Slides for Path Review YES 04/02/24 04/02/24 04/02/24 Range/Units 07:11 10:09 11:52 Sodium (135-145) mmol/L Potassium (3.5-5.1) mmol/L Chloride (98-107) mmol/L Carbon Dioxide (22-30) mmol/L Anion Gap (5-15) MEQ/L BUN (7-17) mg/dL Creatinine (0.52-1.04) mg/dL Estimated GFR ML/MIN Glucose (74-106) mg/dL POC Glucometer 128 H 80 61 L (74 to 106) mg/dL Calcium (8.4-10.2) mg/dL Prealbumin (17.6-36.0) mg/dL Urine Color (Yellow) Urine Appearance (Clear) Urine pH (4.6-8.0) Ur Specific Lynx (1.005-1.030) Urine Protein (Negative) Urine Glucose (UA) (Negative) mg/dL Urine Ketones (Negative) Urine Blood (Negative) Urine Nitrite (Negative) Urine Bilirubin (Negative) Urine Urobilinogen (0.2) mg/dL Ur Leukocyte Esterase (Negative) U Hyaline Cast (Auto) (0-2) /LPF Urine Microscopic RBC (0-5) /HPF Urine Microscopic WBC (0-5) /HPF Ur Epithelial Cells (None Seen) /HPF Urine Bacteria (None Seen) /HPF Urine Culture Reflexed (NO) Slides for Path Review 04/02/24 04/02/24 04/02/24 Range/Units 12:31 15:05 15:39 Sodium (135-145) mmol/L Potassium (3.5-5.1) mmol/L Chloride (98-107) mmol/L Carbon Dioxide (22-30) mmol/L Anion Gap (5-15) MEQ/L BUN (7-17) mg/dL Creatinine (0.52-1.04) mg/dL Estimated GFR ML/MIN Glucose (74-106) mg/dL POC Glucometer 57 L 86 (74 to 106) mg/dL Calcium (8.4-10.2) mg/dL Prealbumin (17.6-36.0) mg/dL Urine Color Yellow (Yellow) Urine Appearance Cloudy A (Clear) Urine pH 5.5 (4.6-8.0) Ur Specific [place] 1.010 (1.005-1.030) Urine Protein 30 (Negative) Urine Glucose (UA) Negative (Negative) mg/dL Urine Ketones Negative (Negative) Urine Blood Negative (Negative) Urine Nitrite Negative (Negative) Urine Bilirubin Negative (Negative) Urine Urobilinogen 0.2 (0.2) mg/dL Ur Leukocyte Esterase Large A (Negative) U Hyaline Cast (Auto) NONE SEEN (0-2) /LPF Urine Microscopic RBC 3-5 (0-5) /HPF Urine Microscopic WBC >100 A (0-5) /HPF Ur Epithelial Cells None Seen (None Seen) /HPF Urine Bacteria None Seen (None Seen) /HPF Urine Culture Reflexed YES (NO) Slides for Path Review 04/02/24 04/02/24 04/02/24 Range/Units 17:47 19:50 22:02 Sodium (135-145) mmol/L Potassium (3.5-5.1) mmol/L Chloride (98-107) mmol/L Carbon Dioxide (22-30) mmol/L Anion Gap (5-15) MEQ/L BUN (7-17) mg/dL Creatinine (0.52-1.04) mg/dL Estimated GFR ML/MIN Glucose (74-106) mg/dL POC Glucometer 144 H 151 H 148 H (74 to 106) mg/dL Calcium (8.4-10.2) mg/dL Prealbumin (17.6-36.0) mg/dL Urine Color (Yellow) Urine Appearance (Clear) Urine pH (4.6-8.0) Ur Specific Lynx (1.005-1.030) Urine Protein (Negative) Urine Glucose (UA) (Negative) mg/dL Urine Ketones (Negative) Urine Blood (Negative) Urine Nitrite (Negative) Urine Bilirubin (Negative) Urine Urobilinogen (0.2) mg/dL Ur Leukocyte Esterase (Negative) U Hyaline Cast (Auto) (0-2) /LPF Urine Microscopic RBC (0-5) /HPF Urine Microscopic WBC (0-5) /HPF Ur Epithelial Cells (None Seen) /HPF Urine Bacteria (None Seen) /HPF Urine Culture Reflexed (NO) Slides for Path Review 04/02/24 04/03/24 04/03/24 Range/Units 23:59 01:54 04:04 Sodium (135-145) mmol/L Potassium (3.5-5.1) mmol/L Chloride (98-107) mmol/L Carbon Dioxide (22-30) mmol/L Anion Gap (5-15) MEQ/L BUN (7-17) mg/dL Creatinine (0.52-1.04) mg/dL Estimated GFR ML/MIN Glucose (74-106) mg/dL POC Glucometer 149 H 152 H 161 H (74 to 106) mg/dL Calcium (8.4-10.2) mg/dL Prealbumin (17.6-36.0) mg/dL Urine Color (Yellow) Urine Appearance (Clear) Urine pH (4.6-8.0) Ur Specific [place] (1.005-1.030) Urine Protein (Negative) Urine Glucose (UA) (Negative) mg/dL Urine Ketones (Negative) Urine Blood (Negative) Urine Nitrite (Negative) Urine Bilirubin (Negative) Urine Urobilinogen (0.2) mg/dL Ur Leukocyte Esterase (Negative) U Hyaline Cast (Auto) (0-2) /LPF Urine Microscopic RBC (0-5) /HPF Urine Microscopic WBC (0-5) /HPF Ur Epithelial Cells (None Seen) /HPF Urine Bacteria (None Seen) /HPF Urine Culture Reflexed (NO) Slides for Path Review Radiology Exams: Radiology Procedures Category Date Time Status VENOUS BILATERAL EXTREMITY [US] Stat Exams 04/02/24 15:30 Completed Multi-Disciplinary Progress Notes: Multi-Disciplinary Progress Notes 04/02/24 14:02 Case Management Note by Maki Shah DONE AT THIS TIME- NO LEVEL II REQUIRED. COPIES PL;ACED IN CHART FULL REFERRAL WITH [facility] FAXED TO [facility] Initialized on 04/02/24 14:02 - END OF NOTE 04/02/24 12:33 Case Management Note by Maki Shah REFERRAL WAS SENT TO [facility] AFTER LAST STAY ON 03/31. CALLED AND S/W THEM- THEY REPORT THEY DID NOT HAVE HER ON THE LIST TO SEE. IF NEEDED AT [place] THEY WILL NEED A FULL REFERRAL TO BE SURE THEY HAVE EVERYTHING Initialized on 04/02/24 12:33 - END OF NOTE 04/02/24 11:18 Pharmacy Note by Nicolás Alcantar All meds reviewed for renal dosing. Will decrease Zyloprim to 50mg po every other day. All other meds are ok. Initialized on 04/02/24 11:18 - END OF NOTE Assessment/Plan (1) Hypoglycemia Current Visit: Yes Status: Acute Assessment & Plan: -Bicarb drip with D5- blood glucose levels improved -accucheck q2h 04/03: -glucose levels returning to baseline - discontinue D5 - monitor closely Code(s): E16.2 - HYPOGLYCEMIA, UNSPECIFIED (2) Acute kidney injury superimposed on CKD Current Visit: No Status: Acute Assessment & Plan: -Discussed case with patient's nephrology team Amanda García NP - recommends transfer with worsening creat above 2.8-3.3 - bicarb drip for acidosis - avoid neprotoxic medications - hold lisinopril and Lasix from home - [facility] records requested and pending - Consider transfer if Cr still rising - patient does not wish to transfer but will consider if labs are not improving 04/03: -creat improving now at 2.77 baseline 2.8-3.3 -continue to hold lasix/lisinopril -[facility] records pending -dc to nursing facility most likely tomorrow for rehab Code(s): N17.9 - ACUTE KIDNEY FAILURE, UNSPECIFIED; N18.9 - CHRONIC KIDNEY DISEASE, UNSPECIFIED Weakness -PT eval recommending rehab -patient agreeable - has been accepted and can discharge when medically stable (3) Recurrent UTI Current Visit: Yes Status: Acute Assessment & Plan: -Hold levaquin - does not need due to kidney function again until 04/03 -[facility]btain [facility] -Obtain urine specimen 04/03: -patient has finished course of abx -current culture negative Code(s): N39.0 - URINARY TRACT INFECTION, SITE NOT SPECIFIED (4) Lupus Current Visit: Yes Status: Acute Assessment & Plan: - continue Medrol 2 mg BID - home med - hold gabapentin due to worsening renal function Code(s): [id number] - (5) Chronic anemia Current Visit: Yes Status: Acute Assessment & Plan: -stable at 9.4, trend - if hgb < 7 transfuse Code(s): D64.9 - ANEMIA, UNSPECIFIED (6) Sick sinus syndrome Current Visit: Yes Status: Acute Assessment & Plan: -noted with pacemaker Code(s): I49.5 - SICK SINUS SYNDROME (7) Sjogren syndrome Current Visit: Yes Status: Acute Assessment & Plan: -continue home meds Code(s): M35.00 - SJOGREN SYNDROME, UNSPECIFIED (8) CHF (congestive heart failure) Current Visit: Yes Status: Acute Assessment & Plan: -Echo from 12/07/22 reviewed EF 50-55% IMPRESSION: 1) MILD TO MODERATE ASYMMETRIC LEFT VENTRICULAR HYPERTROPHY WITHOUT EVIDENCE OF LEFT VENTRICULAR OUTFLOW TRACT OBSTRUCTION. 2) LOW NORMAL LEFT VENTRICULAR SYSTOLIC FUNCTION. 3) CALCIFIC AORTIC SCLEROSIS WITHOUT EVIDENCE OF ANY STENOSIS. 4) MODERATE MITRAL REGURGITATION. 5) TRACE TRICUSPID REGURGITATION. -does not appear to be in exacerbation - no edema on exam -Daily weights- monitor I&O's -watch for fluid overload -Obtain echo from 03/21/24 Code(s): I50.9 - HEART FAILURE, UNSPECIFIED (9) Diabetes mellitus Current Visit: No Status: Chronic Qualifiers: Assessment & Plan: -ADA diet -Hold home meds for now -requiring D5 to maintain blood glucose levels - hold SSI -A1c 6.38- controlled Code(s): E11.9 - TYPE 2 DIABETES MELLITUS WITHOUT COMPLICATIONS (10) HTN (hypertension) Current Visit: No Status: Chronic Qualifiers: Hypertension type: essential hypertension Assessment & Plan: -stable - hold Lasix and lisinopril as above - continue hydralazine, but change from 100 daily dosing to 50 mg q8h due to its short half-life - continue Coreg 25 BID Code status: Full code Prophylaxis: SQ heparin Diet: Diabetic Dispo: Place in observation, but if patient has worsening renal function, will need to transfer to higher level of care Code(s): E16.2 - HYPOGLYCEMIA, UNSPECIFIED (2) Acute kidney injury superimposed on CKD Current Visit: No Status: Acute Code(s): N17.9 - ACUTE KIDNEY FAILURE, UNSPECIFIED; N18.9 - CHRONIC KIDNEY DISEASE, UNSPECIFIED (3) Recurrent UTI Current Visit: Yes Status: Acute Code(s): N39.0 - URINARY TRACT INFECTION, SITE NOT SPECIFIED (4) Lupus Current Visit: Yes Status: Acute Code(s): SAP6194 - (5) Chronic anemia Current Visit: Yes Status: Acute Code(s): D64.9 - ANEMIA, UNSPECIFIED (6) Sick sinus syndrome Current Visit: Yes Status: Acute Code(s): I49.5 - SICK SINUS SYNDROME (7) Sjogren syndrome Current Visit: Yes Status: Acute Code(s): M35.00 - SJOGREN SYNDROME, UNSPECIFIED (8) CHF (congestive heart failure) Current Visit: Yes Status: Acute Code(s): I50.9 - HEART FAILURE, UNSPECIFIED (9) Diabetes mellitus Current Visit: No Status: Chronic Qualifiers: Code(s): E11.9 - TYPE 2 DIABETES MELLITUS WITHOUT COMPLICATIONS (10) HTN (hypertension) Current Visit: No Status: Chronic Qualifiers: Hypertension type: essential hypertension Code(s): I10 - ESSENTIAL (PRIMARY) HYPERTENSION
[2024-04-03 05:39] LABS: ALBUMIN 2.5 g/dL (3.5-5.0); ANION GAP 11.4 MEQ/L (5-15); BILIRUBIN,TOTAL 0.7 mg/dL (0.2-1.3); Calcium 7.4 mg/dL (8.4-10.2); Creatinine 1 2.77 mg/dL (0.52-1.04); EST GLOMERULAR FILTRATION RATE 16.7 ML/MIN; Potassium 3.7 mmol/L (3.5-5.1); Total Protein 4.9 g/dL (6.3-8.2)
[2024-04-03 05:54] LABS: Absolute Neutrophil Ct (ANC) 3.16 x10^3/uL (1.56-6.13); BASOPHIL % 0.4 % (0.1-1.2); Basophil (Absolute #) 0.02 x10^3/uL (0.01-0.08); Eosinophil % 0.6 % (0.7-5.8); Eosinophil (Absolute #) 0.03 x10^3/uL (0.04-0.36); Hematocrit 25.9 % (34.1-44.9); Hemoglobin 8.6 g/dL (11.2-15.7); IMMATURE GRAN # 0.08 x10^3u/L (0.001-0.031); IMMATURE GRAN % 1.5 % (0.001-0.429); Lymphocyte (Absolute #) 1.51 x10^3/uL (1.18-3.74); Lymphocytes % 27.8 % (19.3-51.7); Mean Cell Volume 97.4 fL (79.4-94.8); Mean Corpuscular Hemoglobin 32.3 pg (25.6-32.2); Mean Corpuscular Hgb Concent. 33.2 g/dL (32.2-35.5); Mean Platelet Volume 9.7 fL (9.4-12.3); Monocyte (Absolute #) 0.64 x10^3/uL (0.24-0.86); Monocytes % 11.8 % (4.7-12.5); Neutrophil % 57.9 % (34.0-71.1); Platelet Count 82 x10^3/uL (182-369); Red Blood Count 2.66 x10^6/uL (3.93-5.22); Red Cell Distribution Width 17.6 % (11.7-14.4); White Blood Count 5.4 x10^3/uL (3.98-10.04)
[2024-04-03] MEDS ORDERED: Levofloxacin 500 MG Tablet PO SCH (10:00)
[2024-04-03] MEDS: PHARMACY DOSING REQUEST MC ONE ×2 (10:40→16:44)
[2024-04-03] MEDS: NORCO 7.5/325 MG TAB PO PRN (10:47)
[2024-04-03] MEDS: HUMALOG SQ PRN (16:52)
--- NOTE | 2024-04-04 05:37 | PCM.DS ---
Discharge Summary Date of Admission: 04/01/24 22:10 Date of Discharge: 04/04/24 Admitting Physician: DEBBIE MOELLER MD Primary Care Provider: CORI HODGEYESH Allergies Allergies dapagliflozin [From Farxiga] Adverse Reaction (Unknown, Verified 04/01/24 18:16) doxazosin Adverse Reaction (Unknown, Verified 04/01/24 18:16) rituximab [From Rituxan] Adverse Reaction (Unknown, Verified 04/01/24 18:16) Hospital Summary - Hospital Course Hospital Course: ubjective Assessment: is a 83 year old female hypertension, CKD, RA, stage III, DM2, lupus, Sjogren's, sick sinus syndrome,recurrent UTI's, anemia, CHF, and peripheral neuropathy admitted 04/02/24 with symptomatic hypoglycemia and BETTY on CKD. Of note patient had recent admission 03/21/24 which resulted in transfer to [facility] for which she was 03/30/24 due to worsening BETTY -patient states she had a bad experience there and does not wish to return. Records being obtained. Patient with persistent hypoglycemia despite multiple boluses of D50. BETTY with Cr level at 3.6 on admission, baseline appears to be around 1.4-2. Recurrent cystitis - patient on levaquin as OP- - she was taking 500mg daily instead of every other day due to kidney function- patient has completed course. Urine culture negative. Discussed case with Amanda García, [employer] MACHINE OPERATOR with nephrology (Ruel), patient recently admitted to [facility] under the care of Dr. Lipscomb, patient's baseline around 2.8-3.3, recommends bicarb drip for acidosis. Recommended transfer with worsening creat to [facility]. Patient requesting no transfer. Creat level is now at 2.31. Hypoglycemia has resolved. Acidosis resolved. Patient continues to be weak with PT recommendations for inpatient rehab stay due to severe lower ext weakness and decreased independence with functional mobility that puts her at significant risks for falls. She is psychologically stable. Patient will discharge to nursing facility when medically stable. Nephrology wi ll follow the patient OP. Discharge Note 1) Hypoglycemia Current Visit: Yes Status: Acute Assessment & Plan: -Bicarb drip with D5- blood glucose levels improved -accucheck q2h 04/03: -glucose levels returning to baseline - discontinue D5 - monitor closely - resume glimeperide at 1mg Code(s): E16.2 - HYPOGLYCEMIA, UNSPECIFIED (2) Acute kidney injury superimposed on CKD Current Visit: No Status: Acute Assessment & Plan: -Discussed case with patient's nephrology team Amanda García NP - recommends transfer with worsening creat above 2.8-3.3 - bicarb drip for acidosis - avoid neprotoxic medications - hold lisinopril and Lasix from home - [facility] records requested and pending - Consider transfer if Cr still rising - patient does not wish to transfer but will consider if labs are not improving 04/03: -creat improving now at 2.77 baseline 2.8-3.3 -continue to hold lasix/lisinopril -[facility] records pending -dc to nursing facility most likely tomorrow for rehab Code(s): N17.9 - ACUTE KIDNEY FAILURE, UNSPECIFIED; N18.9 - CHRONIC KIDNEY DISEASE, UNSPECIFIED Weakness -PT eval recommending rehab -patient agreeable - has been accepted and can discharge when medically stable (3) Recurrent UTI Current Visit: Yes Status: Acute Assessment & Plan: -Hold levaquin - does not need due to kidney function again until 04/03 -[facility]btain [facility] -Obtain urine specimen 04/03: -patient has finished course of abx -current culture negative Code(s): N39.0 - URINARY TRACT INFECTION, SITE NOT SPECIFIED (4) Lupus Current Visit: Yes Status: Acute Assessment & Plan: - continue Medrol 2 mg BID - home med - hold gabapentin due to worsening renal function Code(s): [id number] - (5) Chronic anemia Current Visit: Yes Status: Acute Assessment & Plan: -stable at 9.4, trend - if hgb < 7 transfuse Code(s): D64.9 - ANEMIA, UNSPECIFIED (6) Sick sinus syndrome Current Visit: Yes Status: Acute Assessment & Plan: -noted with pacemaker Code(s): I49.5 - SICK SINUS SYNDROME (7) Sjogren syndrome Current Visit: Yes Status: Acute Assessment & Plan: -continue home meds Code(s): M35.00 - SJOGREN SYNDROME, UNSPECIFIED (8) CHF (congestive heart failure) Current Visit: Yes Status: Acute Assessment & Plan: -Echo from 12/07/22 reviewed EF 50-55% IMPRESSION: 1) MILD TO MODERATE ASYMMETRIC LEFT VENTRICULAR HYPERTROPHY WITHOUT EVIDENCE OF LEFT VENTRICULAR OUTFLOW TRACT OBSTRUCTION. 2) LOW NORMAL LEFT VENTRICULAR SYSTOLIC FUNCTION. 3) CALCIFIC AORTIC SCLEROSIS WITHOUT EVIDENCE OF ANY STENOSIS. 4) MODERATE MITRAL REGURGITATION. 5) TRACE TRICUSPID REGURGITATION. -does not appear to be in exacerbation - no edema on exam -Daily weights- monitor I&O's -watch for fluid overload -Obtain echo from 03/21/24 Code(s): I50.9 - HEART FAILURE, UNSPECIFIED (9) Diabetes mellitus Current Visit: No Status: Chronic Qualifiers: Assessment & Plan: -ADA diet -Hold home meds for now -requiring D5 to maintain blood glucose levels - hold SSI -A1c 6.38- controlled Code(s): E11.9 - TYPE 2 DIABETES MELLITUS WITHOUT COMPLICATIONS (10) HTN (hypertension) Current Visit: No Status: Chronic Qualifiers: Hypertension type: essential hypertension Assessment & Plan: -stable - hold Lasix and lisinopril as above - continue hydralazine, but change from 100 daily dosing to 50 mg q8h due to its short half-life - continue Coreg 25 BID Code status: Full code Prophylaxis: SQ heparin Diet: Diabetic Dispo: Place in observation, but if patient has worsening renal function, will need to transfer to higher level of care I spent 35 minutes [id number] with the patient on the day of discharge performing discharge exam, discussing hospital stay and discharge instructions with patient and caregivers, preparation of discharge records, prescriptions & referral forms and addressing any questions/concerns the patient had as documented above. - Vitals & Intake/Output Vital Signs: Vital Signs Temperature 98.3 F 04/04/24 04:00 Pulse Rate 75 04/04/24 04:00 Respiratory Rate 17 04/04/24 04:00 Blood Pressure 178/81 04/04/24 04:00 O2 Sat by Pulse Oximetry 95 04/04/24 04:00 Intake & Output: Intake & Output 04/01/24 04/02/24 04/03/24 04/04/24 11:59 11:59 11:59 11:59 Intake Total 6398 598 6639 Output Total 1650 Balance 1671 -850 1200 Weight 80.1 kg - Lab Result Diagrams: 04/04/24 04:55 04/04/24 04:55 Lab Results-Last 24 Hrs: Lab Results-Last 24 Hours 04/03/24 04/03/2404/03/24 Range/Units 05:11 05:11 05:45 WBC 5.4 (3.98-10.04) x10^3/uL RBC 2.66 L (3.93-5.22) x10^6/uL Hgb 8.6 L (11.2-15.7) g/dL Hct 25.9 L (34.1-44.9) % MCV 97.4 H (79.4-94.8) fL MCH 32.3 H (25.6-32.2) pg MCHC 33.2 (32.2-35.5) g/dL RDW 17.6 H (11.7-14.4) % Plt Count 82 L (182-369) x10^3/uL MPV 9.7 (9.4-12.3) fL Gran % 57.9 (34.0-71.1) % Immature Gran % (Auto) 1.5 H (0.001-0.429) % Nucleat RBC Rel Count 0.0 (0.00-0.2) % Eos # (Auto) 0.03 L (0.04-0.36) x10^3/uL Immature Gran # (Auto) 0.08 H (0.001-0.031) x10^3u/L Absolute Lymphs (auto) 1.51 (1.18-3.74) x10^3/uL Absolute Monos (auto) 0.64 (0.24-0.86) x10^3/uL Absolute Nucleated RBC 0.00 (0.00-0.012) x10^3u/L Lymphocytes % 27.8 (19.3-51.7) % Monocytes % 11.8 (4.7-12.5) % Eosinophils % 0.6 L (0.7-5.8) % Basophils % 0.4 (0.1-1.2) % Absolute Granulocytes 3.16 (1.56-6.13) x10^3/uL Basophils # 0.02 (0.01-0.08) x10^3/uL Sodium 132 L (135-145) mmol/L Potassium 3.7 (3.5-5.1) mmol/L Chloride 103 (98-107) mmol/L Carbon Dioxide 22 (22-30) mmol/L Anion Gap 11.4 (5-15) MEQ/L BUN 43 H (7-17) mg/dL Creatinine 2.77 H (0.52-1.04) mg/dL Estimated GFR 16.7 ML/MIN Glucose 170 H (74-106) mg/dL POC Glucometer 186 H (74 to 106) mg/dL Calcium 7.4 L (8.4-10.2) mg/dL Total Bilirubin 0.70 (0.2-1.3) mg/dL AST 21 (14-36) U/L ALT 16 (0-35) U/L Alkaline Phosphatase 49 (38-126) U/L Serum Total Protein 4.9 L (6.3-8.2) g/dL Albumin 2.5 L (3.5-5.0) g/dL 04/03/24 04/03/24 04/03/24 Range/Units 07:18 10:27 12:03 WBC (3.98-10.04) x10^3/uL RBC (3.93-5.22) x10^6/uL Hgb (11.2-15.7) g/dL Hct (34.1-44.9) % MCV (79.4-94.8) fL MCH (25.6-32.2) pg MCHC (32.2-35.5) g/dL RDW (11.7-14.4) % Plt Count (182-369) x10^3/uL MPV (9.4-12.3) fL Gran % (34.0-71.1) % Immature Gran % (Auto) (0.001-0.429) % Nucleat RBC Rel Count (0.00-0.2) % Eos # (Auto) (0.04-0.36) x10^3/uL Immature Gran # (Auto) (0.001-0.031) x10^3u/L Absolute Lymphs (auto) (1.18-3.74) x10^3/uL Absolute Monos (auto) (0.24-0.86) x10^3/uL Absolute Nucleated RBC (0.00-0.012) x10^3u/L Lymphocytes % (19.3-51.7) % Monocytes % (4.7-12.5) % Eosinophils % (0.7-5.8) % Basophils % (0.1-1.2) % Absolute Granulocytes (1.56-6.13) x10^3/uL Basophils # (0.01-0.08) x10^3/uL Sodium (135-145) mmol/L Potassium (3.5-5.1) mmol/L Chloride (98-107) mmol/L Carbon Dioxide (22-30) mmol/L Anion Gap (5-15) MEQ/L BUN (7-17) mg/dL Creatinine (0.52-1.04) mg/dL Estimated GFR ML/MIN Glucose (74-106) mg/dL POC Glucometer 188 H 199 H 185 H (74 to 106) mg/dL Calcium (8.4-10.2) mg/dL Total Bilirubin (0.2-1.3) mg/dL AST (14-36) U/L ALT (0-35) U/L Alkaline Phosphatase (38-126) U/L Serum Total Protein (6.3-8.2) g/dL Albumin (3.5-5.0) g/dL 04/03/24 04/03/24 04/03/24 Range/Units 13:56 16:06 21:02 WBC (3.98-10.04) x10^3/uL RBC (3.93-5.22) x10^6/uL Hgb (11.2-15.7) g/dL Hct (34.1-44.9) % MCV (79.4-94.8) fL MCH (25.6-32.2) pg MCHC (32.2-35.5) g/dL RDW (11.7-14.4) % Plt Count (182-369) x10^3/uL MPV (9.4-12.3) fL Gran % (34.0-71.1) % Immature Gran % (Auto) (0.001-0.429) % Nucleat RBC Rel Count (0.00-0.2) % Eos # (Auto) (0.04-0.36) x10^3/uL Immature Gran # (Auto) (0.001-0.031) x10^3u/L Absolute Lymphs (auto) (1.18-3.74) x10^3/uL Absolute Monos (auto) (0.24-0.86) x10^3/uL Absolute Nucleated RBC (0.00-0.012) x10^3u/L Lymphocytes % (19.3-51.7) % Monocytes % (4.7-12.5) % Eosinophils % (0.7-5.8) % Basophils % (0.1-1.2) % Absolute Granulocytes (1.56-6.13) x10^3/uL Basophils # (0.01-0.08) x10^3/uL Sodium (135-145) mmol/L Potassium (3.5-5.1) mmol/L Chloride (98-107) mmol/L Carbon Dioxide (22-30) mmol/L Anion Gap (5-15) MEQ/L BUN (7-17) mg/dL Creatinine (0.52-1.04) mg/dL Estimated GFR ML/MIN Glucose (74-106) mg/dL POC Glucometer 235 H 259 H 197 H (74 to 106) mg/dL Calcium (8.4-10.2) mg/dL Total Bilirubin (0.2-1.3) mg/dL AST (14-36) U/L ALT (0-35) U/L Alkaline Phosphatase (38-126) U/L Serum Total Protein (6.3-8.2) g/dL Albumin (3.5-5.0) g/dL 04/04/24 Range/Units 05:18 WBC (3.98-10.04) x10^3/uL RBC (3.93-5.22) x10^6/uL Hgb (11.2-15.7) g/dL Hct (34.1-44.9) % MCV (79.4-94.8) fL MCH (25.6-32.2) pg MCHC (32.2-35.5) g/dL RDW (11.7-14.4) % Plt Count (182-369) x10^3/uL MPV (9.4-12.3) fL Gran % (34.0-71.1) % Immature Gran % (Auto) (0.001-0.429) % Nucleat RBC Rel Count (0.00-0.2) % Eos # (Auto) (0.04-0.36) x10^3/uL Immature Gran # (Auto) (0.001-0.031) x10^3u/L Absolute Lymphs (auto) (1.18-3.74) x10^3/uL Absolute Monos (auto) (0.24-0.86) x10^3/uL Absolute Nucleated RBC (0.00-0.012) x10^3u/L Lymphocytes % (19.3-51.7) % Monocytes % (4.7-12.5) % Eosinophils % (0.7-5.8) % Basophils % (0.1-1.2) % Absolute Granulocytes (1.56-6.13) x10^3/uL Basophils # (0.01-0.08) x10^3/uL Sodium (135-145) mmol/L Potassium (3.5-5.1) mmol/L Chloride (98-107) mmol/L Carbon Dioxide (22-30) mmol/L Anion Gap (5-15) MEQ/L BUN (7-17) mg/dL Creatinine (0.52-1.04) mg/dL Estimated GFR ML/MIN Glucose (74-106) mg/dL POC Glucometer 175 H (74 to 106) mg/dL Calcium (8.4-10.2) mg/dL Total Bilirubin (0.2-1.3) mg/dL AST (14-36) U/L ALT (0-35) U/L Alkaline Phosphatase (38-126) U/L Serum Total Protein (6.3-8.2) g/dL Albumin (3.5-5.0) g/dL Micro Results-Entire Visit: Microbiology 04/02/24 12:31 Urine Culture - Preliminary Urine, Void <10K NORMAL SKIN TOSHIA PROBABLE SKIN CONTAMINANT Accuchecks Date 04/04/24 Date 04/03/24 Date 04/03/24 Date 04/03/24 Date 04/03/24 Date 04/03/24 Date 04/03/24 Date 04/03/24 Date 04/03/24 Time 05:20 Time 21:00 Time 05:47 - Radiology Exams Ordered Rad Exams-Entire Visit: Radiology Procedures Category Date Time Status VENOUS BILATERAL EXTREMITY [US] Stat Exams 04/02/24 15:30 Completed - Procedures and Test Procedures and Tests throughout Hospitalization: Therapy Orders & Screens 04/02/24 07:30 OT Screen per Nursing Assess ONCE Comment: Protocol Order Physician Instructions: Greater than 3 points order OT Admission Screening Reason For Exam: Triggered on Admission Diagnosis: Hypoglycemia Open Wound/Cellutlitis/Pressure Ulcers: Yes Acute Fx/ORIF/Change in wt bearing status: No Severe MUSCULOSKELETAL pain: No ADL Dysfunction: No Acute CVA w/Hemiparesis/Hemiplegia: No Decreased Functional Mobility/Strength: Yes Sprain/Strain: No Acute Post-op Mobility Dysfunction: No Total Points: 6 PT Screen per Nursing Assess ONCE Comment: Protocol Order Physician Instructions: Greater than 3 points order PT Admission Screenin Reason For Exam: Triggered on Admission Diagnosis: Hypoglycemia Open Wound/Cellutlitis/Pressure Ulcers: Yes Acute Fx/ORIF/Change in wt bearing status: No Severe MUSCULOSKELETAL pain: No ADL Dysfunction: No Acute CVA w/Hemiparesis/Hemiplegia: No Decreased Functional Mobility/Strength: Yes Sprain/Strain: No Acute Post-op Mobility Dysfunction: No Total Points: 6 04/03/24 10:28 PT Eval & Treat (MD Order) ONCE Reason for Eval:: weakness, possible NH placement Diagnosis: Hypoglycemia Discharge Exam General Appearance: no apparent distress Neurologic Exam: alert, oriented x 3, cooperative Eye Exam: PERRL Ears, Nose, Throat Exam: normal ENT inspection Neck Exam: normal inspection Respiratory Exam: normal breath sounds, lungs clear Cardiovascular Exam: regular rate/rhythm, normal heart sounds Gastrointestinal/Abdomen Exam: soft, normal bowel sounds Pelvic Exam: deferred Rectal Exam: deferred Back Exam: normal inspection Extremity Exam: normal inspection Skin Exam: ecchymosis (BUE), pale Wound Assessment: Skin/Wound Assessment Wound/Incision Assessment Start: 04/02/24 00:50 Text: Status: Active Freq: Q6H Protocol: Document 04/04/24 05:00 MP (Rec: 04/04/24 05:13 MP [id number]) Wound/Incision Assessment Lower Medial Other Wound Assessment Shift Assessment Wound Stage Non Pressure Wound Dressing Status Dry & Intact Drainage Amount None Drainage Odor None/Absent General Appearance Reddened Surrounding Tissue Kittrell Right Buttock Wound Assessment Shift Assessment Wound Type Pressure Ulcer Dressing Status Dry & Intact Drainage Amount None Comment dressing c/d/i Left Buttock Wound Assessment Shift Assessment Wound Type Pressure Ulcer Drainage Amount None Surrounding Tissue Edges Rolled Primary Dressing Diane Hartman 6x6 dressing Comment dressing c/d/i Bilateral Abdominal Folds Wound Assessment Shift Assessment Wound Type gaulding Wound Stage Non Pressure Wound Drainage Amount None Drainage Odor None/Absent General Appearance Open to air,Reddened Surrounding Tissue Kittrell Topical Solution/Irrigant Medicated Ointment Comment zinc ointment Wound Photo Photo Taken No Final Diagnosis/Problem List - Final Discharge Diagnosis/Problem (1) Hypoglycemia Current Visit: Yes Status: Resolved Code(s): E16.2 - HYPOGLYCEMIA, UNSPEC IFIED (2) Acute kidney injury superimposed on CKD Current Visit: No Status: Chronic Code(s): N17.9 - ACUTE KIDNEY FAILURE, UNSPECIFIED; N18.9 - CHRONIC KIDNEY DISEASE, UNSPECIFIED (3) Recurrent UTI Current Visit: Yes Status: Resolved Code(s): N39.0 - URINARY TRACT INFECTION, SITE NOT SPECIFIED (4) Lupus Current Visit: Yes Status: Chronic Code(s): [id number] - (5) Chronic anemia Current Visit: Yes Status: Chronic Code(s): D64.9 - ANEMIA, UNSPECIFIED (6) Sick sinus syndrome Current Visit: Yes Status: Chronic Code(s): I49.5 - SICK SINUS SYNDROME (7) Sjogren syndrome Current Visit: Yes Status: Chronic Code(s): M35.00 - SJOGREN SYNDROME, UNSPECIFIED (8) CHF (congestive heart failure) Current Visit: Yes Status: Chronic Code(s): I50.9 - HEART FAILURE, UNSPECIFIED (9) Diabetes mellitus Current Visit: No Status: Chronic Code(s): E11.9 - TYPE 2 DIABETES MELLITUS WITHOUT COMPLICATIONS (10) HTN (hypertension) Current Visit: No Status: Chronic Code(s): I10 - ESSENTIAL (PRIMARY) HYPERTENSION - Discharge Discharge Date: 04/04/24 Disposition: DC TO ANY "OTHER" LONG-TERM Condition: Stable Prescriptions: New Dextrose 15 gm Oral Gel [Glutose 15 GM ORAL GEL] 15 gm PO PRN PRN PRN Reason: Hypoglycemia Ondansetron HCl 4 mg/2 ml [Zofran 4 MG/2 ML VIAL] 4 mg IV Q6H PRN PRN PRN Reason: Nausea/Vomiting Allopurinol 100 mg [Zyloprim 100 mg] 50 mg PO QOD tablet Continue Atorvastatin Calcium [Lipitor 20MG Tablet] 10 mg PO HS Gabapentin [Neurontin] 300 mg PO TID Isosorbide Mononitrate [Isosorbide Mononitrate ER] 60 mg PO DAILY Aspirin EC 81 mg [Ecotrin 81 mg] 81 mg PO DAILY Folic Acid 1 mg [Folate 1 mg] 1 mg PO DAILY carvediloL [Carvedilol] 25 mg PO BID #60 tablet lisinopriL [Lisinopril] 10 mg PO DAILY Ferrous Sulfate 325 mg PO BID Furosemide [Lasix] 40 mg PO DAILY Hydralazine HCl 100 mg PO DAILY methylPREDNISolone [Methylprednisolone] 2 mg PO BID Hydrocodone/Acetaminophen [Hydrocodone-Acetamin 5-325 mg] 1 tab PO TID PRN PRN Reason: Pain Changed Glimepiride 1 mg PO DAILY #0 Discontinued allopurinoL [Zyloprim] 100 mg PO BID Levofloxacin [Levofloxacin 500 MG Tablet] 500 mg PO QOD tablet Additional Instructions: LONG-TERM ORDERS: cmp 04/05/24 Nephrology follow up [facility] [address] DI[address] AC HS ACCU CHECKS PT/OT EVAL AND TREAT SEE ATTACHED MED LIST Follow up with: KATHIE HODGE MD [Primary Care Provider] - AMBER BALES MD [CONSULTING PHYSICIAN] - (3-5 days)
[2024-04-04 05:43] LABS: Absolute Neutrophil Ct (ANC) 3.42 x10^3/uL (1.56-6.13); BASOPHIL % 0.2 % (0.1-1.2); Basophil (Absolute #) 0.01 x10^3/uL (0.01-0.08); Eosinophil % 0.2 % (0.7-5.8); Eosinophil (Absolute #) 0.01 x10^3/uL (0.04-0.36); Hematocrit 25.7 % (34.1-44.9); Hemoglobin 8.5 g/dL (11.2-15.7); IMMATURE GRAN # 0.07 x10^3u/L (0.001-0.031); IMMATURE GRAN % 1.3 % (0.001-0.429); Lymphocyte (Absolute #) 1.54 x10^3/uL (1.18-3.74); Lymphocytes % 28.7 % (19.3-51.7); Mean Cell Volume 98.1 fL (79.4-94.8); Mean Corpuscular Hemoglobin 32.4 pg (25.6-32.2); Mean Corpuscular Hgb Concent. 33.1 g/dL (32.2-35.5); Mean Platelet Volume 10.8 fL (9.4-12.3); Monocyte (Absolute #) 0.32 x10^3/uL (0.24-0.86); Neutrophil % 63.6 % (34.0-71.1); Platelet Count 83 x10^3/uL (182-369); Red Blood Count 2.62 x10^6/uL (3.93-5.22); Red Cell Distribution Width 17.3 % (11.7-14.4); White Blood Count 5.4 x10^3/uL (3.98-10.04)
[2024-04-04 05:47] LABS: ALBUMIN 2.7 g/dL (3.5-5.0); ANION GAP 10.8 MEQ/L (5-15); Calcium 7.9 mg/dL (8.4-10.2); Creatinine 1 2.31 mg/dL (0.52-1.04); EST GLOMERULAR FILTRATION RATE 20.7 ML/MIN; Total Protein 5.2 g/dL (6.3-8.2)
[2024-04-04 07:55] VITALS: BP 178/80; PULSE 76; RESP 18; TEMP 97.8; O2SAT 92
[2024-04-04] MEDS: Zofran 4 MG/2 ML VIAL IV PRN (08:35)
[2024-04-04] MEDS: ZYLOPRIM 100 MG PO SCH (09:56)
--- NOTE | 2024-04-04 10:29 | PCM.DCORD ---
- Discharge Disposition: DC TO ANY "OTHER" PENITENTIARY Condition: Stable Prescriptions: New Dextrose 15 gm Oral Gel [Glutose 15 GM ORAL GEL] 15 gm PO PRN PRN PRN Reason: Hypoglycemia Allopurinol 100 mg [Zyloprim 100 mg] 50 mg PO QOD tablet Ondansetron ODT 4 MG [Zofran Odt 4 mg] 4 mg PO Q6H PRN PRN 30 Days #30 tablet PRN Reason: Nausea Continue Atorvastatin Calcium [Lipitor 20MG Tablet] 10 mg PO HS Gabapentin [Neurontin] 300 mg PO TID Isosorbide Mononitrate [Isosorbide Mononitrate ER] 60 mg PO DAILY Aspirin EC 81 mg [Ecotrin 81 mg] 81 mg PO DAILY Folic Acid 1 mg [Folate 1 mg] 1 mg PO DAILY carvediloL [Carvedilol] 25 mg PO BID #60 tablet lisinopriL [Lisinopril] 10 mg PO DAILY Ferrous Sulfate 325 mg PO BID Furosemide [Lasix] 40 mg PO DAILY Hydralazine HCl 100 mg PO DAILY methylPREDNISolone [Methylprednisolone] 2 mg PO BID Hydrocodone/Acetaminophen [Hydrocodone-Acetamin 5-325 mg] 1 tab PO TID PRN PRN Reason: Pain Changed Glimepiride 1 mg PO DAILY #0 Discontinued allopurinoL [Zyloprim] 100 mg PO BID Levofloxacin [Levofloxacin 500 MG Tablet] 500 mg PO QOD tablet Additional Instructions: PENITENTIARY ORDERS: cmp 04/05/24 Nephrology follow up [facility] [address] DIET AC HS ACCU CHECKS PT/OT EVAL AND TREAT SEE ATTACHED MED LIST Follow up with: AMBER BALES MD [CONSULTING PHYSICIAN] - 04/07/24 3:50 pm ([place] [facility]ICE) KATHIE HODGE MD [Primary Care Provider] -
== END 2024-04-04 11:05 ==
LOC: ED 18:13 → MED SURG 22:10
PROVIDERS: ADMIT Internal Medicine; ATTEND Internal Medicine
DX: E16.2 Hypoglycemia, unspecified (principal); N17.9 Acute kidney failure, unspecified; E11.22 Type 2 diabetes mellitus with diabetic chronic kidney disease; I13.0 Hypertensive heart and chronic kidney disease with heart failure and stage 1 through stage 4 chronic kidney disease, or unspecified chronic kidney disease; I50.9 Heart failure, unspecified; N18.30 Chronic kidney disease, stage 3 unspecified; R60.0 Localized edema; N39.0 Urinary tract infection, site not specified; M32.9 Systemic lupus erythematosus, unspecified; D64.9 Anemia, unspecified; I49.5 Sick sinus syndrome; R55 Syncope and collapse; M35.00 Sjogren syndrome, unspecified; L89.312 Pressure ulcer of right buttock, stage 2; L89.322 Pressure ulcer of left buttock, stage 2; Z79.899 Other long term (current) drug therapy
CPT/HCPCS: 36000; 36410; 36415; 76942; 80048; 80053; 81001; 82947; 84134; 85025; 85027; 87086; 93005; 93268; 93970; 96374; 97161; 99285; G0378; Q3014; J1644; J1817; J2405; A9270-GY

== ENCOUNTER 2024-04-19 12:32 | Emergency (ER) | payer MEDICARE ==
--- NOTE | 2024-04-19 12:39 | ERPHSYRPT ---
- History of Present Illness Time Seen by Provider: 04/19/24 12:38 Historian: patient, EMS, old records Exam Limitations: no limitations Physician History: This is an 83-year-old white female patient who was brought to the emergency department by the resin coater service for multiple episodes of vomiting this morning. I reviewed the 2 most recent inpatient admissions and discharge summaries. One on 03/21/2024 to 03/27/2024. The second admission 04/01/2024 to 04/04/2024. Patient has received packed red blood cell transfusions within the last few weeks as well for symptomatic anemia. This is the patient's third visit to our emergency department in the last month. Patient has a history of cholecystectomy, bladder sling operation and hysterectomy in the past. She has a history of chronic renal disease, chronic anemia, recurrent UTIs, hyperlipidemia, diabetes, hypertension, gout, lupus, Sojourn's syndrome, CHF, peripheral neuropathy and has a pacemaker in place. Patient denies chest pain. Patient denies shortness of breath. She has generalized abdominal discomfort and rates this pain a 5 out of 10. Patient's primary care provider is Dr. Hodge, her ride attendant is Dr. Salomon, her business systems administrator is Dr. Lopez. Timing/Duration: today Quality: aching Abdominal Pain Onset Location: generalized abdomen Pain Radiation: no radiation Severity of Pain-Max: mild Severity of Pain-Current: mild Modifying Factors: Improves With: vomiting Associated Symptoms: nausea, vomiting, weakness, No chest pain, No fever/chills, No shortness of breath Previous symptoms: same symptoms as today, recently seen, recent hospitalization, recently treated Allergies/Adverse Reactions: dapagliflozin [From Farxiga] Adverse Reaction (Unknown, Verified 04/19/24 12:37) doxazosin Adverse Reaction (Unknown, Verified 04/19/24 12:37) rituximab [From Rituxan] Adverse Reaction (Unknown, Verified 04/19/24 12:37) Home Medications: Atorvastatin Calcium [Lipitor 20MG Tablet] 10 mg PO HS 04/11/17 [History] Gabapentin [Neurontin] 300 mg PO TID 04/11/17 [History] Isosorbide Mononitrate [Isosorbide Mononitrate ER] 60 mg PO DAILY 09/17/21 [History] Folic Acid 1 mg [Folate 1 mg] 1 mg PO DAILY 12/06/22 [History] Furosemide [Lasix] 60 mg PO DAILY 03/13/24 [History] Hydralazine HCl 100 mg PO TID 03/13/24 [History] Allopurinol 100 mg [Zyloprim 100 mg] 200 mg PO DAILY 04/19/24 [History] Ferrous Gluconate 324 mg PO DAILY 04/19/24 [History] Hydrocodone/Acetaminophen [Hydrocodone-Acetamin 5-325 mg] 1 tab PO Q6H PRN PRN MDD 6 04/19/24 [History] Hx Tetanus, Diphtheria Vaccination/Date Given: Yes Hx Influenza Vaccination/Date Given: Yes Hx Pneumococcal Vaccination/Date Given: No Travel Risk - Emerging Infectious Disease Are you exhibiting symptoms associated with any current EIDs: Yes Symptoms: Abdominal Pain, Vomitting - Review of Systems Constitutional: Weakness Eyes: No Symptoms Ears, Nose, & Throat: No Symptoms Respiratory: No Symptoms Cardiac: No Symptoms Abdominal/Gastrointestinal: Abdominal Pain, Nausea, Vomiting, Appetite Changes Genitourinary Symptoms: No Symptoms Musculoskeletal: No Symptoms Skin: No Symptoms Neurological: No Symptoms Psychological: No Symptoms Endocrine: No Symptoms Hematologic/Lymphatic: No Symptoms Immunological/Allergic: No Symptoms All Other Systems: Reviewed and Negative - Past Medical History Pertinent Past Medical History: Yes Neurological History: No Pertinent History ENT History: Cataracts Cardiac History: Arrhythmia, Hypertension, Other Respiratory History: No Pertinent History Endocrine Medical History: Diabetes Type II, Other Musculoskeletal History: Osteoarthritis GI Medical History: No Pertinent History History: Renal Disease Psycho-Social History: No Pertinent History Female Reproductive Disorders: No Pertinent History Other Medical History: L ANKLE FRACTURE, PACEMAKER. 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 No cardiac disease.) - Social History Smoking Status: Never smoker Exposure to second hand smoke: No Drug Use: none Patient Lives Alone: No - Social Determinants of Health Will the patient participate in the screening: Yes Do you worry about a steady place to live?: No In the past 12 months,have you had to go without utilities?: No Transportation Issues: No Has anyone in your support network made you feel unsafe?: No Have you or anyone in your house had to go without enough: No - Nursing Vital Signs Nursing Vital Signs: Initial Vital Signs Pulse Rate 71 04/19/24 12:36 Respiratory Rate 16 04/19/24 12:36 Blood Pressure 172/87 04/19/24 12:36 O2 Sat by Pulse Oximetry 96 04/19/24 12:36 Pain Scale Pain Intensity 0 - Physical Exam General Appearance: no apparent distress, lethargy (Mildly lethargic but quickly arousable) Eye Exam: PERRL/EOMI, eyes nml inspection Ears, Nose, Throat Exam: normal ENT inspection, dry mucous membranes Neck Exam: normal inspection, non-tender, supple, full range of motion Respiratory Exam: normal breath sounds, lungs clear, No chest tenderness, No respiratory distress Cardiovascular Exam: regular rate/rhythm, normal heart sounds, normal peripheral pulses Gastrointestinal/Abdomen Exam: soft, normal bowel sounds, tenderness (Mild diffuse), distention (Mild diffuse), No guarding Pelvic Exam: not done Rectal Exam: not done Back Exam: normal inspection, normal range of motion, No CVA tenderness, No vertebral tenderness Extremity Exam: normal inspection, normal range of motion, pelvis stable Neurologic Exam: oriented x 3, cooperative, general intern II-XII nml as tested, sensation nml Skin Exam: warm, dry, jaundice Lymphatic Exam: No adenopathy SpO2 Interpretation: normal O2 Delivery: Room Air Ordered Tests: Active Orders 24 hr Category Date Time Status Stephens [Catheter-[place] Stephens] STAT Care 04/19/24 16:37 Active IV Insertion STAT Care 04/19/24 13:01 Active ABDOMEN AND PELVIS W/0 CONTRAS [CT] Stat Exams 04/19/24 13:02 Completed AMYLASE Stat Lab 04/19/24 13:15 Completed BLOOD CULTURE Stat Lab 04/19/24 13:46 Received CBC W DIFF Stat Lab 04/19/24 13:15 Completed CMP Stat Lab 04/19/24 13:15 Completed CULTURE,URINE Routine Lab 04/19/24 16:40 Received CULTURE,URINE Stat Lab 04/19/24 13:18 Received LIPASE Stat Lab 04/19/24 13:15 Completed Lactic Acid Stat Lab 04/19/24 14:25 Completed MAGNESIUM Stat Lab 04/19/24 13:15 Completed MONO SCREEN Stat Lab 04/19/24 13:15 Completed UA W/RFX UR CULTURE Stat Lab 04/19/24 13:18 Completed Medication Summary Discontinued Medications Generic Name Dose Route Start Last Admin Trade Name Anuj PRN Reason Stop Dose Admin Sodium Chloride 500 mls @ 500 mls/hr 04/19/24 13:03 04/19/24 14:35 Sodium Chloride 0.9% 500 Ml IV 04/19/24 14:02 Infused .Q1H ONE Infusion Sodium Chloride Confirm 04/19/24 13:26 Sodium Chloride 0.9% 500 Ml Administered 04/19/24 13:27 Dose 500 mls @ ud IV .STK-MED ONE Ceftriaxone Sodium 2 gm in 100 mls @ 200 mls/hr 04/19/24 14:24 04/19/24 16:47 Rocephin 2 Gm/100 Ml Nacl IV 04/19/24 14:53 Infused STAT ONE Infusion Ceftriaxone Sodium Confirm 04/19/24 14:41 Rocephin 2 Gm/100 Ml Nacl Administered 04/19/24 14:42 Dose 2 gm in 100 mls @ ud IV .STK-MED ONE Ondansetron HCl 4 mg 04/19/24 13:01 04/19/24 13:27 Ondansetron Hcl 4 Mg/2 Ml Vial IV 04/19/24 13:02 4 mg STAT ONE Administration Ondansetron HCl Confirm 04/19/24 13:26 Ondansetron Hcl 4 Mg/2 Ml Vial Administered 04/19/24 13:27 Dose 4 mg .ROUTE .STK-MED ONE Lab/Rad Data: Laboratory Result Diagrams 04/19/24 13:15 04/19/24 13:15 Laboratory Results 04/19/24 04/19/24 04/19/24 Range/Units 14:50 14:25 13:18 WBC (3.98-10.04) x10^3/uL RBC (3.93-5.22) x10^6/uL Hgb (11.2-15.7) g/dL Hct (34.1-44.9) % MCV (79.4-94.8) fL MCH (25.6-32.2) pg MCHC (32.2-35.5) g/dL RDW (11.7-14.4) % Plt Count (182-369) x10^3/uL MPV (9.4-12.3) fL Gran % (34.0-71.1) % Immature Gran % (Auto) (0.001-0.429) % Nucleat RBC Rel Count (0.00-0.2) % Eos # (Auto) (0.04-0.36) x10^3/uL Immature Gran # (Auto) (0.001-0.031) x10^3u/L Absolute Lymphs (auto) (1.18-3.74) x10^3/uL Absolute Monos (auto) (0.24-0.86) x10^3/uL Absolute Nucleated RBC (0.00-0.012) x10^3u/L Lymphocytes % (19.3-51.7) % Monocytes % (4.7-12.5) % Eosinophils % (0.7-5.8) % Basophils % (0.1-1.2) % Absolute Granulocytes (1.56-6.13) x10^3/uL Basophils # (0.01-0.08) x10^3/uL Sodium (135-145) mmol/L Potassium (3.5-5.1) mmol/L Chloride (98-107) mmol/L Carbon Dioxide (22-30) mmol/L Anion Gap (5-15) MEQ/L BUN (7-17) mg/dL Creatinine (0.52-1.04) mg/dL Estimated GFR ML/MIN Glucose (74-106) mg/dL Lactic Acid 1.0 (0.4-2.0) Calcium (8.4-10.2) mg/dL Magnesium (1.6-2.3) mg/dL Total Bilirubin (0.2-1.3) mg/dL AST (14-36) U/L ALT (0-35) U/L Alkaline Phosphatase (38-126) U/L Ammonia < 9 L (9-30) umol/L Serum Total Protein (6.3-8.2) g/dL Albumin (3.5-5.0) g/dL Amylase (30-110) U/L Lipase (23-300) U/L Urine Color (Yellow) Urine Appearance (Clear) Urine pH (4.6-8.0) Ur Specific [place] (1.005-1.030) Urine Protein (Negative) Urine Glucose (UA) (Negative) mg/dL Urine Ketones (Negative) Urine Blood (Negative) Urine Nitrite (Negative) Urine Bilirubin (Negative) Urine Urobilinogen (0.2) mg/dL Ur Leukocyte Esterase (Negative) U Hyaline Cast (Auto) (0-2) /LPF Urine Microscopic RBC (0-5) /HPF Urine Microscopic WBC (0-5) /HPF Ur Epithelial Cells (None Seen) /HPF Urine Bacteria (None Seen) /HPF Urine Culture Reflexed (NO) Monoscreen (NEGATIVE) Influenza Type A Ag NEGATIVE (NEGATIVE) Influenza Type B Ag NEGATIVE (NEGATIVE) RSV (PCR) NEGATIVE (NEGATIVE) SARS-CoV-2 (PCR) NEGATIVE (NEGATIVE) 04/19/24 04/19/24 04/19/24 Range/Units 13:18 13:15 13:15 WBC (3.98-10.04) x10^3/uL RBC (3.93-5.22) x10^6/uL Hgb (11.2-15.7) g/dL Hct (34.1-44.9) % MCV (79.4-94.8) fL MCH (25.6-32.2) pg MCHC (32.2-35.5) g/dL RDW (11.7-14.4) % Plt Count (182-369) x10^3/uL MPV (9.4-12.3) fL Gran % (34.0-71.1) % Immature Gran % (Auto) (0.001-0.429) % Nucleat RBC Rel Count (0.00-0.2) % Eos # (Auto) (0.04-0.36) x10^3/uL Immature Gran # (Auto) (0.001-0.031) x10^3u/L Absolute Lymphs (auto) (1.18-3.74) x10^3/uL Absolute Monos (auto) (0.24-0.86) x10^3/uL Absolute Nucleated RBC (0.00-0.012) x10^3u/L Lymphocytes % (19.3-51.7) % Monocytes % (4.7-12.5) % Eosinophils % (0.7-5.8) % Basophils % (0.1-1.2) % Absolute Granulocytes (1.56-6.13) x10^3/uL Basophils # (0.01-0.08) x10^3/uL Sodium 131 L (135-145) mmol/L Potassium 4.7 (3.5-5.1) mmol/L Chloride 99 (98-107) mmol/L Carbon Dioxide 20 L (22-30) mmol/L Anion Gap 17.5 H (5-15) MEQ/L BUN 83 H (7-17) mg/dL Creatinine 6.06 H (0.52-1.04) mg/dL Estimated GFR 6.5 ML/MIN Glucose 95 (74-106) mg/dL Lactic Acid (0.4-2.0) Calcium 8.4 (8.4-10.2) mg/dL Magnesium 2.4 H (1.6-2.3) mg/dL Total Bilirubin 0.60 (0.2-1.3) mg/dL AST 22 (14-36) U/L ALT 15 (0-35) U/L Alkaline Phosphatase 58 (38-126) U/L Ammonia (9-30) umol/L Serum Total Protein 5.4 L (6.3-8.2) g/dL Albumin 3.0 L (3.5-5.0) g/dL Amylase 72 (30-110) U/L Lipase 502 H (23-300) U/L Urine Color Yellow (Yellow) Urine Appearance Turbid A (Clear) Urine pH 6.5 (4.6-8.0) Ur Specific Mc[place] 1.010 (1.005-1.030) Urine Protein 30 (Negative) Urine Glucose (UA) Negative (Negative) mg/dL Urine Ketones Negative (Negative) Urine Blood Trace (Negative) Urine Nitrite Negative (Negative) Urine Bilirubin Negative (Negative) Urine Urobilinogen 0.2 (0.2) mg/dL Ur Leukocyte Esterase Large A (Negative) U Hyaline Cast (Auto) NONE SEEN (0-2) /LPF Urine Microscopic RBC 0-2 (0-5) /HPF Urine Microscopic WBC >100 A (0-5) /HPF Ur Epithelial Cells Few (None Seen) /HPF Urine Bacteria Many A (None Seen) /HPF Urine Culture Reflexed ORDERED SEPARATELY (NO) Monoscreen NEGATIVE (NEGATIVE) Influenza Type A Ag (NEGATIVE) Influenza Type B Ag (NEGATIVE) RSV (PCR) (NEGATIVE) SARS-CoV-2 (PCR) (NEGATIVE) 04/19/24 Range/Units 13:15 WBC 8.4 (3.98-10.04) x10^3/uL RBC 2.71 L (3.93-5.22) x10^6/uL Hgb 8.9 L (11.2-15.7) g/dL Hct 27.7 L (34.1-44.9) % MCV 102.2 H (79.4-94.8) fL MCH 32.8 H (25.6-32.2) pg MCHC 32.1 L (32.2-35.5) g/dL RDW 15.6 H (11.7-14.4) % Plt Count 113 L (182-369) x10^3/uL MPV 11.2 (9.4-12.3) fL Gran % 48.6 (34.0-71.1) % Immature Gran % (Auto) 1.1 H (0.001-0.429) % Nucleat RBC Rel Count 0.0 (0.00-0.2) % Eos # (Auto) 0.15 (0.04-0.36) x10^3/uL Immature Gran # (Auto) 0.09 H (0.001-0.031) x10^3u/L Absolute Lymphs (auto) 3.24 (1.18-3.74) x10^3/uL Absolute Monos (auto) 0.78 (0.24-0.86) x10^3/uL Absolute Nucleated RBC 0.00 (0.00-0.012) x10^3u/L Lymphocytes % 38.6 (19.3-51.7) % Monocytes % 9.3 (4.7-12.5) % Eosinophils % 1.8 (0.7-5.8) % Basophils % 0.6 (0.1-1.2) % Absolute Granulocytes 4.09 (1.56-6.13) x10^3/uL Basophils # 0.05 (0.01-0.08) x10^3/uL Sodium (135-145) mmol/L Potassium (3.5-5.1) mmol/L Chloride (98-107) mmol/L Carbon Dioxide (22-30) mmol/L Anion Gap (5-15) MEQ/L BUN (7-17) mg/dL Creatinine (0.52-1.04) mg/dL Estimated GFR ML/MIN Glucose (74-106) mg/dL Lactic Acid (0.4-2.0) Calcium (8.4-10.2) mg/dL Magnesium (1.6-2.3) mg/dL Total Bilirubin (0.2-1.3) mg/dL AST (14-36) U/L ALT (0-35) U/L Alkaline Phosphatase (38-126) U/L Ammonia (9-30) umol/L Serum Total Protein (6.3-8.2) g/dL Albumin (3.5-5.0) g/dL Amylase (30-110) U/L Lipase (23-300) U/L Urine Color (Yellow) Urine Appearance (Clear) Urine pH (4.6-8.0) Ur Specific Mc[place] (1.005-1.030) Urine Protein (Negative) Urine Glucose (UA) (Negative) mg/dL Urine Ketones (Negative) Urine Blood (Negative) Urine Nitrite (Negative) Urine Bilirubin (Negative) Urine Urobilinogen (0.2) mg/dL Ur Leukocyte Esterase (Negative) U Hyaline Cast (Auto) (0-2) /LPF Urine Microscopic RBC (0-5) /HPF Urine Microscopic WBC (0-5) /HPF Ur Epithelial Cells (None Seen) /HPF Urine Bacteria (None Seen) /HPF Urine Culture Reflexed (NO) Monoscreen (NEGATIVE) Influenza Type A Ag (NEGATIVE) Influenza Type B Ag (NEGATIVE) RSV (PCR) (NEGATIVE) SARS-CoV-2 (PCR) (NEGATIVE) - Progress Progress: improved, re-examined Progress Note: 04/19/24 13:06 My medical decision making and the assignment of at least moderate complexity to this patient's medical issue today is based on review of the patient's past medical history, review of the patient's medication list, reviewed patient drug allergy list, history present illness and physical findings on examination. The workup in this patient includes placement of a intravenous line, infusion of crystalloid solution, infusion of Zofran, CBC, CMP, amylase, lipase, urinalysis, viral studies, monotest, magnesium level, CT scan of the abdomen pelvis without contrast 04/19/24 13:10 The differential diagnosis in this patient includes but is not limited to anemia, electrolyte abnormalities, dehydration, urinary tract infection, acute intra-abdominal/pelvic abnormality 04/19/24 16:12 I interpreted the patient's laboratory data results. Based on the laboratory data results, the patient has significant acute on chronic renal failure and a significant urinary tract infection. She also has a significant anemia but it is improved over lab value from 2 weeks ago. Today's value is 8.9. On 04/03/2024 her hemoglobin value was 8.5. Patient's platelet count is 113. The CT scan of the abdomen and pelvis was interpreted by the radiologist and I reviewed the impression. The impression states: 1. Right sided abdominal wall wide necked hernia containing fat, bowel and the inferior part of the right hepatic lobe. 2. Dilated common bile duct postcholecystectomy 3. Multiple noncomplicated colonic diverticula 4. Normal appendix. 5. No free air or free fluid 6. Lumbar spine scoliosis with spondylitic degenerative changes. 7. Chronic arteriosclerotic changes of the abdominal aorta. 8. No evidence of bowel obstruction or thickened bowel wall The patient and family would prefer us to attempt to transfer this patient to [facility] [place] [facility]. If there is a long wait before this patient can be transferred there, they are okay with transferring the patient to [facility] [place] [facility] 04/19/24 16:58 I spoke with the hospitalist at [facility]. I reviewed the patient history, chief complaint, workup and the results of our workup. Patient needs to be at a facility where there is a potential for dialysis on an urgent basis if needed. The hospitalist, Dr. Montilla, accepts the patient in transfer. I was told by the transfer center that they do expect a bed to open up this evening. Counseled pt/family regarding: lab results, diagnosis, rad results Medical Desision Making - Independent Historian Additional History obtained from: Spouse, Family - Diagnostic Testing Diagnostic test were ordered, analyzed, and reviewed by me: Yes Radiological Interpretation: Reviewed by me, Teleradiologist Report - Risk of complications The pt has a high risk of morbidity or mortality based on: Decision regarding hospitilization or escalation of hosp level of care - Departure Departure Disposition: Transfer Clinical Impression: Weakness, Lethargy, Chronic anemia, Acute on chronic renal failure, UTI (urinar y tract infection), Thrombocytopenia Condition: Fair Critical Care Time: No Referrals: KATHIE HODGE MD [Primary Care Provider] - Follow up/PCP as directed
[2024-04-19 12:46] VITALS: TEMP 95.9
[2024-04-19] MEDS ORDERED: Zofran 4 MG/2 ML VIAL ONE ×2 (13:26→17:11)
[2024-04-19] MEDS ORDERED: Sodium Chloride 0.9% 500 ML 500 ML IV ONE (13:26)
[2024-04-19] MEDS: Zofran 4 MG/2 ML VIAL IV ONE ×2 (13:27→17:15)
[2024-04-19] MEDS: Sodium Chloride 0.9% 500 ML 500 ML IV ONE (13:27)
[2024-04-19 14:04] LABS: Absolute Neutrophil Ct (ANC) 4.09 x10^3/uL (1.56-6.13); BASOPHIL % 0.6 % (0.1-1.2); Basophil (Absolute #) 0.05 x10^3/uL (0.01-0.08); Eosinophil % 1.8 % (0.7-5.8); Eosinophil (Absolute #) 0.15 x10^3/uL (0.04-0.36); Hematocrit 27.7 % (34.1-44.9); Hemoglobin 8.9 g/dL (11.2-15.7); IMMATURE GRAN # 0.09 x10^3u/L (0.001-0.031); IMMATURE GRAN % 1.1 % (0.001-0.429); Lymphocyte (Absolute #) 3.24 x10^3/uL (1.18-3.74); Lymphocytes % 38.6 % (19.3-51.7); Mean Cell Volume 102.2 fL (79.4-94.8); Mean Corpuscular Hemoglobin 32.8 pg (25.6-32.2); Mean Corpuscular Hgb Concent. 32.1 g/dL (32.2-35.5); Mean Platelet Volume 11.2 fL (9.4-12.3); Monocyte (Absolute #) 0.78 x10^3/uL (0.24-0.86); Monocytes % 9.3 % (4.7-12.5); Neutrophil % 48.6 % (34.0-71.1); Platelet Count 113 x10^3/uL (182-369); Red Blood Count 2.71 x10^6/uL (3.93-5.22); Red Cell Distribution Width 15.6 % (11.7-14.4); White Blood Count 8.4 x10^3/uL (3.98-10.04)
[2024-04-19 14:12] LABS: Appearance Turbid (Clear); Bacteria Many /HPF (None Seen); Bilirubin Negative (Negative); Blood Trace (Negative); Epithelial Cells Few /HPF (None Seen); Glucose, Urine Negative (Negative); Hyaline Casts NONE SEEN /LPF (0-2); Ketones Negative (Negative); Leukocyte Esterase Large (Negative); Nitrite Negative (Negative); Ph 6.5 (4.6-8.0); Protein,Urine Dip 30 (Negative); RBC 0-2 /HPF (0-5); Urobilinogen 0.2 mg/dL (0.2); WBC >100 /HPF (0-5)
[2024-04-19 14:19] LABS: ANION GAP 17.5 MEQ/L (5-15); BILIRUBIN,TOTAL 0.6 mg/dL (0.2-1.3); Calcium 8.4 mg/dL (8.4-10.2); Creatinine 1 6.06 mg/dL (0.52-1.04); EST GLOMERULAR FILTRATION RATE 6.5 ML/MIN; MAGNESIUM 2.4 mg/dL (1.6-2.3); Potassium 4.7 mmol/L (3.5-5.1); Total Protein 5.4 g/dL (6.3-8.2)
[2024-04-19] MEDS ORDERED: ROCEPHIN 2 GM/100 ML NACL 2 GM/100 ML IVPB IV ONE (14:41)
[2024-04-19 14:49] LABS: INFLUENZA A NEGATIVE (NEGATIVE); INFLUENZA B NEGATIVE (NEGATIVE); RESPIRATORY SYNCTIAL VIRUS NEGATIVE (NEGATIVE); SARS-CoV-2 Xpert Express NEGATIVE (NEGATIVE)
--- NOTE | 2024-04-19 15:35 | XRAY ---
CLINICAL HISTORY: ABD pain; vomiting COMPARISON: No prior studies are available for comparison. TECHNIQUE: Non-contrast CT of the abdomen and pelvis was performed, with the following protocol: axial images, and reconstructed coronal and sagittal images. No intravenous contrast was administered. One of the following dose reduction techniques was utilized for this exam: Automated exposure control, adjustment of the mA and/or kV according to patient size, and use of iterative reconstruction. FINDINGS: Abdomen: Liver: Normal in size, shape, and density. No focal lesions, cysts, or masses were identified. Gallbladder and Biliary System: Surgically removed with a clear surgical bed. CBD is dilated and measures 9 mm likely post-cholecystectomy. Pancreas: Pancreatic head, body, and tail are visualized and appear normal in size and density. No pancreatic masses or calcifications were noted. Spleen: Normal in size, shape, and density. No splenic lesions or masses were identified. Marked calcification of the splenic hilum vessels. Kidneys and Adrenal Glands: Both kidneys are normal in size, shape, and position. Bilateral cortical irregularity. Cortical thickness is within normal limits. No renal calculi or hydronephrosis. Bilateral non-specific perinephric fat stranding. Adrenal glands are unremarkable. Pelvis: Urinary Bladder: Normal in contour and wall thickness. A small calcification is seen intraluminally could be suggestive of a stone. Uterus: Hysterectomy with clear surgical bed Ovaries: Not well visualized Peritoneal and Retroperitoneal Structures: No free fluid or abnormal fluid collections were identified within the abdomen or pelvis. No lymphadenopathy was noted. Bowel: The visualized bowel loops are normal in caliber and appearance. No evidence of bowel obstruction or wall thickening. Multiple Non-complicated colonic diverticuae. Normal appendix. Bones and Soft Tissues: Right-sided abdominal wall wide neck hernia containing fat, bowel, and inferior part of the right hepatic lobe. Scoliotic deformity of the lumbar spine. Spondylodegenerative changes of the lumbar spine. Generalized decreased bone density. Mild subcutaneous edema at the left lower back is noted. Chronic atherosclerosis of the [place]. No fractures or abnormal masses were identified. Right lung lower lobe atelectatic changes. Bilateral minimal pleural effusion. Bilateral pleural thickening is noted. Subcutaneous small calcified mass measures 9 x 8 mm. IMPRESSION: 1. Right-sided abdominal wall wide neck hernia containing fat, bowel, and inferior part of the right hepatic lobe. 2. CBD is dilated and measures 9 mm likely post-cholecystectomy. 3. Marked calcification of the splenic hilum vessels. 4. Multiple Non-complicated colonic diverticuae. 5. Scoliotic deformity of the lumbar spine. Spondylodegenerative changes of the lumbar spine. 6. Generalized decreased bone density. 7. Chronic atherosclerosis of the [place]. Electronically Signed by: Didier King MD. (04/19/2024 15:31:19 EDT)
[2024-04-19] MEDS: ROCEPHIN 2 GM/100 ML NACL 2 GM/100 ML IVPB IV ONE (16:09)
[2024-04-19 17:05] LABS: Slide Review 1 YES
[2024-04-19] MEDS: NORCO 5/325 MG PO ONE (17:50)
[2024-04-19] MEDS ORDERED: NORCO 5/325 MG ONE (17:50)
[2024-04-19] MEDS ORDERED: MORPHINE SULFATE 2 MG INJ ONE (20:48)
[2024-04-19] MEDS: MORPHINE SULFATE 2 MG INJ IV ONE (20:48)
[2024-04-19 22:35] VITALS: BP 128/45; PULSE 67; RESP 24; O2SAT 92
== END 2024-04-19 22:50 | disposition short-term general hospital (02) ==
LOC: ED 12:32
DX: N39.0 Urinary tract infection, site not specified (principal); N17.9 Acute kidney failure, unspecified; E11.22 Type 2 diabetes mellitus with diabetic chronic kidney disease; I13.0 Hypertensive heart and chronic kidney disease with heart failure and stage 1 through stage 4 chronic kidney disease, or unspecified chronic kidney disease; N18.9 Chronic kidney disease, unspecified; R53.1 Weakness; R53.83 Other fatigue; D64.9 Anemia, unspecified; D69.6 Thrombocytopenia, unspecified; R11.2 Nausea with vomiting, unspecified; R10.84 Generalized abdominal pain; E78.5 Hyperlipidemia, unspecified; E11.42 Type 2 diabetes mellitus with diabetic polyneuropathy; I50.9 Heart failure, unspecified; Z79.891 Long term (current) use of opiate analgesic; Z79.899 Other long term (current) drug therapy
CPT/HCPCS: 0241U; 36000; 36415; 51702; 74176; 80053; 81001; 82140; 82150; 83605; 83690; 83735; 85025; 86308; 87040; 87077; 87086; 87186; 93005; 96360; 96365; 96374; 96375; 96376; 99285; J0696; J2270; J2405; A9270-GY

== ENCOUNTER 2024-07-12 15:06 | Emergency (ER) | payer MEDICARE ==
--- NOTE | 2024-07-12 15:12 | ERPHSYRPT ---
- History of Present Illness Time Seen by Provider: 07/12/24 15:12 Source: patient, EMS Exam Limitations: no limitations Physician History: This is an 83-year-old white female patient of Dr. Hodge who presents to the emergency department by the subsurface augmentee operator service secondary to losing her balance while attempting to make a cake for her . She was not dizzy. She denies chest pain. She was not symptomatic prior to or during making of the cake. However she did lose her balance and fell backwards hitting her head. She did not lose consciousness. She states that she does not have neck pain. There was bleeding present and pressure dressing is still present but no soiling noted at this time. Per protocol the paramedics did place the patient in a cervical collar. Patient arrives to the emergency department in no distress. Her vital signs are stable. She has no complaints of extremity pain or injury. And she continues to have no chest pain and no shortness of breath. Patient has a history of hyperlipidemia, hypertension, gout, arrhythmia, type 2 diabetes, chronic renal disease and a pacemaker in place. Occurred: just prior to arrival Reason for Fall: lost balance Injuries/Pain Location: head Loss of Consciousness: no loss of consciousness Severity of Pain-Max: mild Severity of Pain-Current: none Modifying Factors: Improves With: nothing Associated Symptoms (Fall): headache, No lightheadedness, No neck pain, No slurred speech, No vomiting, No vision changes Allergies/Adverse Reactions: dapagliflozin [From Farxiga] Adverse Reaction (Unknown, Verified 07/12/24 15:18) doxazosin Adverse Reaction (Unknown, Verified 07/12/24 15:18) rituximab [From Rituxan] Adverse Reaction (Unknown, Verified 07/12/24 15:18) Home Medications: Atorvastatin Calcium [Lipitor 20MG Tablet] 10 mg PO HS 04/11/17 [History] Gabapentin [Neurontin] 300 mg PO BID 04/11/17 [History] Isosorbide Mononitrate [Isosorbide Mononitrate ER] 60 mg PO DAILY 09/17/21 [History] Folic Acid 1 mg [Folate 1 mg] 1 mg PO DAILY 12/06/22 [History] Furosemide [Lasix] 20 mg PO TID 03/13/24 [History] Hydralazine HCl 100 mg PO TID 03/13/24 [History] Allopurinol 100 mg [Zyloprim 100 mg] 200 mg PO BID 04/19/24 [History] Hydrocodone/Acetaminophen [Hydrocodone-Acetamin 5-325 mg] 1 tab PO Q6H PRN PRN MDD 6 04/19/24 [History] Furosemide 20 mg [Lasix 20 mg] 20 mg PO BID 07/12/24 [History] Potassium Chloride Tab* [Klor Con] 40 meq PO BID 07/12/24 [History] Hx Tetanus, Diphtheria Vaccination/Date Given: Yes Hx Influenza Vaccination/Date Given: Yes Hx Pneumococcal Vaccination/Date Given: No Travel Risk - International Travel Have you traveled outside of the country in past 3 weeks: No - Emerging Infectious Disease Are you exhibiting symptoms associated with any current EIDs: Yes Symptoms: Abdominal Pain, Vomitting - Review of Systems Constitutional: No Symptoms Eyes: No Symptoms Ears, Nose, & Throat: No Symptoms Respiratory: No Symptoms Cardiac: No Symptoms Abdominal/Gastrointestinal: No Symptoms Genitourinary Symptoms: No Symptoms Musculoskeletal: No Symptoms Skin: No Symptoms Neurological: No Symptoms Psychological: No Symptoms Endocrine: No Symptoms Hematologic/Lymphatic: No Symptoms Immunological/Allergic: No Symptoms All Other Systems: Reviewed and Negative - Past Medical History Pertinent Past Medical History: Yes Neurological History: No Pertinent History ENT History: Cataracts Cardiac History: Arrhythmia, Hypertension, Other Respiratory History: No Pertinent History Endocrine Medical History: Diabetes Type II, Other Musculoskeletal History: Osteoarthritis GI Medical History: No Pertinent History History: Renal Disease Psycho-Social History: No Pertinent History Female Reproductive Disorders: No Pertinent History Other Medical History: L ANKLE FRACTURE, PACEMAKER. 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 No cardiac disease.) - Social History Smoking Status: Never smoker Exposure to second hand smoke: No Drug Use: none Patient Lives Alone: No - Social Determinants of Health Will the patient participate in the screening: Yes Do you worry about a steady place to live?: No In the past 12 months,have you had to go without utilities?: No Transportation Issues: No Has anyone in your support network made you feel unsafe?: No Have you or anyone in your house had to go without enough: No - Nursing Vital Signs Nursing Vital Signs: Initial Vital Signs Temperature 97.7 F 07/12/24 15:07 Pulse Rate 70 07/12/24 15:07 Respiratory Rate 17 07/12/24 15:07 Blood Pressure 173/78 07/12/24 15:07 O2 Sat by Pulse Oximetry 99 07/12/24 15:07 Pain Scale Pain Intensity 4 - [place] Coma Score Best Eye Response (Nissa): (4) open spontaneously Best Verbal Response (Nissa): (5) oriented Best Motor Response ([place]): (6) obeys commands Nissa Total: 15 - Physical Exam General Appearance: no apparent distress, alert Head Injury: contusions (Back of her head. Unable to perform a full examination of her scalp until after cervical spine cleared. Dressing in place), tenderness (Mild tenderness to the area of contusion) ENT Exam: airway nml, nml ext.inspection, No evidence of ENT injury Neck Exam: trachea midline, c-collar in place Respiratory/Chest Exam: normal breath sounds, No chest tenderness, No respiratory distress, No ecchymosis, No crepitus Cardiovascular Exam: normal heart sounds, regular rate/rhythm Gastrointestinal Exam: soft, normal bowel sounds, No tenderness Rectal Exam: not done Back Exam: normal inspection, normal range of motion, No CVA tenderness, No vertebral tenderness Extremity Exam: normal inspection, normal range of motion, pelvis stable, No deformities Neurologic Exam: alert, oriented x 3, cooperative, clinical specialist vascular II-XII nml as tested, normal mood/affect, sensation nml Skin Exam: normal color, warm, dry SpO2 Interpretation: normal O2 Delivery: Room Air Procedures - Laceration/Wound Repair Left Occipital Time of Procedure: 17:35 Wound Location: Left, head (Occipital region) Wound Length (cm): 1.5 Wound's Depth, Shape: superficial, linear Wound Explored: clean (Wound explored to the base in a bloodless field. No foreign bodies are noted.) Irrigated: Yes Hibiclens Prep: Yes Anesthesia: topical Wound Repaired With: Machias (2 single lucio were used for skin laceration closure) - Course Nursing assessment & vital signs reviewed: Yes Ordered Tests: Active Orders 24 hr Category Date Time Status CERVICAL SPINE WO CONTRAST [CT] Stat Exams 07/12/24 15:18 Completed HEAD WITHOUT CONTRAST [CT] Stat Exams 07/12/24 15:18 Completed Medication Summary Discontinued Medications Generic Name Dose Route Start Last Admin Trade Name Anuj PRN Reason Stop Dose Admin Lidocaine/Prilocaine 2.5 gm 07/12/24 17:10 07/12/24 17:12 Lidocaine/Prilocaine 5 Gm 5 Gm Tube TP 07/12/24 17:11 2.5 gm STAT ONE Administration Lidocaine/Prilocaine Confirm 07/12/24 17:11 Lidocaine/Prilocaine 5 Gm 5 Gm Tube Administered 07/12/24 17:12 Dose 5 gm TP .STK-MED ONE - Progress Progress: improved, pain not gone completely Progress Note: 07/12/24 16:09 My medical decision making and the assignment of low to moderate complexity is based on review of the patient's past medical history, review of the patient's medication list, reviewed patient drug allergy list, history present illness and physical findings on examination. The workup in this patient includes CT scan of the cervical spine and CT scan of the neck. Both without contrast. The patient and her spouse do not want anything else performed. They are not concerned about other issues. She is only concerned about her head. Differential diagnosis includes but is not limited to scalp laceration, scalp contusion, scalp abrasion, skull fracture, acute intracranial abnormality, fracture/subluxation cervical spine 07/12/24 17:[address] scan of the head without contrast was interpreted by the radiologist and I reviewed the impression. There is no evidence for acute ischemia or hemorrhage. There is evidence of right sphenoidal sinusitis. The CT scan of the cervical spine without contrast shows no fracture line. There is evidence of osteoarthritis. C6 shows a small hypodense vertebral body lesion. MRI follow-up is recommended. This was discussed with the patient and her spouse. There is posterior disc herniation of C5/6 07/12/24 17:11 There is approximately 1 and half centimeter transversely oriented, nonbleeding left side occipital region scalp laceration. We will place Emla cream on this and closed with lucio. Counseled pt/family regarding: diagnosis, need for follow-up, rad results Medical Desision Making - Independent Historian Additional History obtained from: Spouse - Diagnostic Testing Diagnostic test were ordered, analyzed, and reviewed by me: Yes Radiological Interpretation: Reviewed by me, Teleradiologist Report - Risk of complications Low Risk: Low risk of morbidity from additional dx testing or treatment - Departure Departure Disposition: Home Clinical Impression: Fall, Occipital scalp laceration, Vertebral body hemangioma Condition: Stable Critical Care Time: No Referrals: KATHIE HODGE MD [Primary Care Provider] - Follow up/PCP as directed Additional Instructions: If there are no contraindications, use Tylenol for pain control. Ice pack to tender area 3-4 times a day for the next 3 to 4 days. Weight 24 hours before showering. After 24 hours may shower daily. Use a astronomy department chair or blot dry the laceration repair site. Staple removal in 8 to 10 days. Call your primary care provider on 07/14/2024, to make arrangements for follow-up appointment to be seen in the next 3 to 5 days to follow-up on the cervical spine vertebral body lesion presumed to be a hemangioma.
[2024-07-12 15:30] VITALS: TEMP 97.7
--- NOTE | 2024-07-12 16:39 | XRAY ---
CLINICAL HISTORY: Fall injury COMPARISON: None. TECHNIQUE: An axial non-contrast CT scan of the brain was performed from the skull base to the high parietal region with coronal and sagittal reformats. One of the following dose reduction techniques was utilized for this exam: Automated exposure control, adjustment of the mA and/or kV according to patient size, and use of iterative reconstruction. CTDI: 67 mGy, DLP: 1331.6 mGy*cm . FINDINGS: Brain Parenchyma: Mild age-related cerebral involutional changes were noted. Normal attenuation of the cerebral hemispheres, cerebellum, and brainstem. No evidence of acute infarct, hemorrhage, or mass effect. No abnormal areas of hypo- or hyperattenuation. Ventricular System: Both lateral Ventricles are mildly dilated. Subarachnoid Spaces: The cortical sulci and cisterns are age-appropriate. No evidence of subarachnoid hemorrhage or extra-axial fluid collections. Cerebellum and Brainstem: Normal size and signal. No masses, lesions, or areas of abnormal density. Orbits: Normal appearance of the globes, optic nerves, and extraocular muscles. No evidence of orbital masses or abnormal density. Sinuses: Clear paranasal sinuses. Right sphenoidal sinusitis noted with hyperdense secretions may refer to fungal infection /chronic inflammatory condition. No evidence of sinusitis or mucosal thickening. Mastoid Air Cells: Clear mastoid air cells. No evidence of mastoiditis. Skull: Normal skull morphology. IMPRESSION: 1. Mild age-related cerebral involutional changes. 2. No evidence of acute ischemic or hemorrhagic insult is appreciated. 3. No fracture line was depicted. 4. Right sphenoidal sinusitis noted with hyperdense secretions may refer to fungal infection /chronic inflammatory condition. Electronically Signed by: Didier King MD. (07/12/2024 16:35:49 EST)
--- NOTE | 2024-07-12 16:53 | XRAY ---
CLINICAL HISTORY: Fall injury COMPARISON: No previous studies are available for comparison. TECHNIQUE: CT scan of the cervical spine was performed without the administration of intravenous contrast. Contiguous axial images were obtained from the skull base to the upper thoracic spine. Coronal and sagittal reformatted images were also reviewed. One of the following dose-reduction techniques was utilized for this exam. Automated exposure control, adjustment of the mA and/or kV according to patient size, and use of iterative reconstruction. CTDI: 68mGy, DLP: 1331.8 mGy-cm. FINDINGS: Vertebrae: C6 vertebral body shows a small osteolytic lesion along its right jose-portion with aggressive features. The vertebral bodies are normal in height and alignment. No evidence of acute fracture or dislocation. The cortical and trabecular bone patterns are normal. No signs of lytic or sclerotic lesions. Normal configuration of the posterior elements. Intervertebral Discs: C5-6 posterior disc herniation is seen compressing the ventral CSF space with a mild right side and moderate left side exit neural foraminal encroachment. C3-4 and C4-5 subtle posterior central disc protrusions were noted. The intervertebral disc spaces are preserved. No evidence of significant disc bulging or herniation. No calcifications or ossifications were noted within the discs. Facet Joints: Bilateral facet joint osteoarthritis involving C2-3, C3-4, and C4-5 levels was noted. Neural Foramina: The neural foramina is patent bilaterally at all levels. No evidence of foraminal narrowing or nerve root compression. Prevertebral Soft Tissues: The prevertebral soft tissues are normal in thickness without evidence of mass or abnormal fluid collection. 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 atherosclerotic mural clarifications noted. IMPRESSION: 1. No fractue line depcited. 2. Bilateral facet joint osteoarthritis involving C2-3, C3-4, and C4-5 levels was noted. 3. C6 small hypodense vertebral body lesion could be a small hemangioma, MRI follow-up is advised. 4. C5-6 posterior disc herniation noted. Electronically Signed by: Didier King MD. (07/12/2024 16:48:41 EST)
[2024-07-12] MEDS ORDERED: EMLA Cream 5 GM TP ONE (17:11)
[2024-07-12] MEDS: EMLA Cream 5 GM TP ONE (17:12)
[2024-07-12 17:16] VITALS: O2SAT 97
[2024-07-12 18:10] VITALS: BP 144/60; PULSE 68; RESP 17
== END 2024-07-12 18:17 | disposition home or self-care (01) ==
LOC: ED 15:06
DX: S01.01XA Laceration without foreign body of scalp, initial encounter (principal); D18.09 Hemangioma of other sites; W18.30XA Fall on same level, unspecified, initial encounter; E78.5 Hyperlipidemia, unspecified; I12.9 Hypertensive chronic kidney disease with stage 1 through stage 4 chronic kidney disease, or unspecified chronic kidney disease; E11.22 Type 2 diabetes mellitus with diabetic chronic kidney disease; N18.9 Chronic kidney disease, unspecified; Z79.899 Other long term (current) drug therapy
CPT/HCPCS: 12001; 70450; 72125; 99284; A9270-GY

== ENCOUNTER 2024-10-31 06:50 | Emergency (ER) | payer MEDICARE ==
[2024-10-31 07:54] VITALS: TEMP 97.5
[2024-10-31 08:11] LABS: BASOPHIL % 1.1 % (0.1-1.2); Basophil (Absolute #) 0.06 x10^3/uL (0.01-0.08); Eosinophil % 1.9 % (0.7-5.8); Hematocrit 29.9 % (34.1-44.9); Hemoglobin 9.6 g/dL (11.2-15.7); IMMATURE GRAN # 0.05 x10^3u/L (0.001-0.031); IMMATURE GRAN % 0.9 % (0.001-0.429); Lymphocyte (Absolute #) 1.69 x10^3/uL (1.18-3.74); Mean Cell Volume 94.3 fL (79.4-94.8); Mean Corpuscular Hemoglobin 30.3 pg (25.6-32.2); Mean Corpuscular Hgb Concent. 32.1 g/dL (32.2-35.5); Mean Platelet Volume 9.1 fL (9.4-12.3); Monocyte (Absolute #) 0.38 x10^3/uL (0.24-0.86); Monocytes % 7.2 % (4.7-12.5); Neutrophil % 56.9 % (34.0-71.1); Platelet Count 132 x10^3/uL (182-369); Red Blood Count 3.17 x10^6/uL (3.93-5.22); Red Cell Distribution Width 13.4 % (11.7-14.4); White Blood Count 5.3 x10^3/uL (3.98-10.04)
--- NOTE | 2024-10-31 08:17 | ERPHSYRPT ---
- History of Present Illness Time Seen by Provider: 10/31/24 07:18 Source: patient Exam Limitations: no limitations Patient Subjective Stated Complaint: pt reports she had minimal rectal bleeding last night, woke up this morning and while ambulated to restroom she passed a "a couple clots and the rest was just blood" on the floor. pt denies any pain/trauma/falls. Reports last bm this morning. Triage Nursing Assessment: Pt wheeled to ER cot by staff, transfered from chair to cot assist x1. Bruising noted throughout skin, warm/dry skin. Abdomen soft/round/nontender. Peritoneal catheter in place. Pt reports she is feeling weak and has hx of anemia. Accompanied by daughter and spouse. Respirations easy/nonlabored. Physician History: Rectal bleeding. Started last night into this morning. Patient does have a history of hemorrhoids. Bright red blood. Denies being on any blood thinners. No abdominal pain, falls, other trauma. No fever no chills. Patient states that she has not been going through more than 1 pad an hour. Patient feels it may be related to her hemorrhoids. She has no rectal pain. She has not tried anything to make this better or worse. She has not taken any medications. She does take a baby aspirin daily. Allergies/Adverse Reactions: dapagliflozin [From Farxiga] Adverse Reaction (Unknown, Verified 10/31/24 07:34) doxazosin Adverse Reaction (Unknown, Verified 10/31/24 07:34) rituximab [From Rituxan] Adverse Reaction (Unknown, Verified 10/31/24 07:34) Home Medications: Atorvastatin Calcium [Lipitor 20MG Tablet] 10 mg PO HS 04/11/17 [History] Gabapentin [Neurontin] 300 mg PO BID 04/11/17 [History] Isosorbide Mononitrate [Isosorbide Mononitrate ER] 60 mg PO DAILY 09/17/21 [History] Folic Acid 1 mg [Folate 1 mg] 1 mg PO DAILY 12/06/22 [History] Allopurinol 100 mg [Zyloprim 100 mg] 200 mg PO BID 04/19/24 [History] Hydrocodone/Acetaminophen [Hydrocodone-Acetamin 5-325 mg] 1 tab PO Q6H PRN PRN MDD 6 04/19/24 [History] Furosemide 20 mg [Lasix 20 mg] 20 mg PO DAILY 07/12/24 [History] Potassium Chloride Tab* [Klor Con] 40 meq PO DAILY 07/12/24 [History] Aspirin EC 81 mg [Ecotrin 81 mg] 1 tab PO DAILY 10/31/24 [History] Ciprofloxacin HCl [Cipro] See Rx Instructions .ROUTE .COMPLEX 10/31/24 [History] Ferrous Sulfate 325 mg [Feosol 325 mg] 1 tab PO DAILY 10/31/24 [History] carvediloL [Carvedilol] 12.5 mg PO BID 10/31/24 [History] Hx Tetanus, Diphtheria Vaccination/Date Given: Yes Hx Influenza Vaccination/Date Given: Yes Hx Pneumococcal Vaccination/Date Given: Yes Travel Risk - International Travel Have you traveled outside of the country in past 3 weeks: No - Emerging Infectious Disease Are you exhibiting symptoms associated with any current EIDs: No Symptoms: Abdominal Pain, Vomitting - Past Medical History Pertinent Past Medical History: Yes Neurological History: Peripheral Neuropathy ENT History: Cataracts Cardiac History: Arrhythmia, Hypertension Respiratory History: No Pertinent History Endocrine Medical History: Diabetes Type II Musculoskeletal History: Fractures, Osteoarthritis GI Medical History: Hemorrhoids History: Renal Disease Psycho-Social History: No Pertinent History Female Reproductive Disorders: No Pertinent History Other Medical History: Pacemaker, anemia, plate in left leg - Past Surgical History Past Surgical History: Yes Neuro Surgical History: No Pertinent History Cardiac: Cardiac Catheterization, Pacemaker Respiratory: No Pertinent History Gastrointestinal: Cholecystectomy Genitourinary: Other Musculoskeletal: No Pertinent History Female Surgical History: Hysterectomy Other Surgical History: bladder suspension, peritoneal catheter placed. Significant Family History: no pertinent family hx (No significant hypertension. No cardiac disease.) - Social History Smoking Status: Never smoker Drug Use: none - Social Determinants of Health Will the patient participate in the screening: Declined to provide - Nursing Vital Signs Nursing Vital Signs: Initial Vital Signs Temperature 97.5 F 10/31/24 07:23 Pulse Rate 61 10/31/24 07:23 Respiratory Rate 15 10/31/24 07:23 Blood Pressure 158/80 10/31/24 07:23 O2 Sat by Pulse Oximetry 99 10/31/24 07:23 Pain Scale Pain Intensity 0 - Physical Exam SpO2: 97 Comments: 10/31/24 08:15 Review of Systems Constitutional: Negative for fever. HENT: Negative for congestion. Respiratory: Negative for shortness of breath. Cardiovascular: Negative for chest pain. Gastrointestinal: Negative for abdominal pain. Genitourinary: Negative for dysuria. Musculoskeletal: Negative for back pain. Skin: Negative for rash. Neurological: Negative for headaches. Psychiatric/Behavioral: Negative for behavioral problems. All other systems reviewed and are negative. Physical Exam Vitals signs and nursing note reviewed. Constitutional: Appearance: Patient is well-developed. HENT: Head: Normocephalic and atraumatic. Eyes: Conjunctiva/sclera: Conjunctivae normal. Neck: Musculoskeletal: Normal range of motion. Trachea: No tracheal deviation. Cardiovascular: Rate and Rhythm: Normal rate. Heart sounds normal. Pulmonary: Effort: Pulmonary effort is normal. No respiratory distress. Abdominal: Palpations: Abdomen is soft. Musculoskeletal: General: No deformity. Skin: General: Skin is warm and dry. Neurological/ Psychiatric: Mental Status: Mental status, behavior, interaction with environment is appropriate for patient's age and condition Rectal exam chaperoned by nurse Hood. On external exam there are some hemorrhoids however none appear to be bleeding. On internal exam patient does have bright red blood, no tenderness on insertion of my finger. No masses, lumps, stool in rectal vault. - Course Nursing assessment & vital signs reviewed: Yes EKG Interpreted by Me: Sinus Rhythm Ordered Tests: Active Orders 24 hr Category Date Time Status EKG-ER Only STAT Care 10/31/24 07:32 Active IV Insertion STAT Care 10/31/24 07:32 Active ABDOMEN AND PELVIS W/0 CONTRAS [CT] Routine Exams 10/31/24 08:40 Completed CBC W DIFF Stat Lab 10/31/24 08:00 Completed CBC W DIFF Stat Lab 10/31/24 10:09 Completed CMP Stat Lab 10/31/24 08:00 Completed LIPASE Stat Lab 10/31/24 08:00 Completed Medication Summary Discontinued Medications Generic Name Dose Route Start Last Admin Trade Name Freq PRN Reason Stop Dose Admin Carvedilol 12.5 mg 10/31/24 09:49 10/31/24 10:00 Carvedilol 12.5 Mg Tablet PO 10/31/24 09:50 12.5 mg ONCE ONE Administration Lab/Rad Data: Laboratory Result Diagrams 10/31/24 10:09 10/31/24 08:00 Laboratory Results 10/31/24 10/31/24 10/31/24 Range/Units 10:09 08:00 08:00 WBC 4.9 (3.98-10.04) x10^3/uL RBC 2.98 L (3.93-5.22) x10^6/uL Hgb 9.1 L (11.2-15.7) g/dL Hct 30.6 L (34.1-44.9) % MCV 102.7 H D (79.4-94.8) fL MCH 30.5 (25.6-32.2) pg MCHC 29.7 L (32.2-35.5) g/dL RDW 13.6 (11.7-14.4) % Plt Count 128 L (182-369) x10^3/uL MPV 9.3 L (9.4-12.3) fL Gran % 53.3 (34.0-71.1) % Immature Gran % (Auto) 0.8 H (0.001-0.429) % Nucleat RBC Rel Count 0.0 (0.00-0.2) % Eos # (Auto) 0.09 (0.04-0.36) x10^3/uL Immature Gran # (Auto) 0.04 H (0.001-0.031) x10^3u/L Absolute Lymphs (auto) 1.77 (1.18-3.74) x10^3/uL Absolute Monos (auto) 0.34 (0.24-0.86) x10^3/uL Absolute Nucleated RBC 0.00 (0.00-0.012) x10^3u/L Lymphocytes % 36.0 (19.3-51.7) % Monocytes % 6.9 (4.7-12.5) % Eosinophils % 1.8 (0.7-5.8) % Basophils % 1.2 (0.1-1.2) % Absolute Granulocytes 2.61 (1.56-6.13) x10^3/uL Basophils # 0.06 (0.01-0.08) x10^3/uL Sodium 138 (135-145) mmol/L Potassium 3.7 (3.5-5.1) mmol/L Chloride 110 H (98-107) mmol/L Carbon Dioxide 21 L (22-30) mmol/L Anion Gap 10.4 (5-15) MEQ/L BUN 24 H (7-17) mg/dL Creatinine 2.31 H (0.52-1.04) mg/dL Estimated GFR 20.7 ML/MIN Glucose 151 H (74-106) mg/dL Calcium 8.7 (8.4-10.2) mg/dL Total Bilirubin 0.70 (0.2-1.3) mg/dL AST 22 (14-36) U/L ALT 12 (0-35) U/L Alkaline Phosphatase 89 (38-126) U/L Serum Total Protein 5.9 L (6.3-8.2) g/dL Albumin 3.2 L (3.5-5.0) g/dL Lipase 226 (23-300) U/L ABO Group O Rh Factor NEGATIVE Antibody Screen NEGATIVE (NEGATIVE) 10/31/24 Range/Units 08:00 WBC 5.3 (3.98-10.04) x10^3/uL RBC 3.17 L (3.93-5.22) x10^6/uL Hgb 9.6 L (11.2-15.7) g/dL Hct 29.9 L (34.1-44.9) % MCV 94.3 (79.4-94.8) fL MCH 30.3 (25.6-32.2) pg MCHC 32.1 L (32.2-35.5) g/dL RDW 13.4 (11.7-14.4) % Plt Count 132 L (182-369) x10^3/uL MPV 9.1 L (9.4-12.3) fL Gran % 56.9 (34.0-71.1) % Immature Gran % (Auto) 0.9 H (0.001-0.429) % Nucleat RBC Rel Count 0.0 (0.00-0.2) % Eos # (Auto) 0.10 (0.04-0.36) x10^3/uL Immature Gran # (Auto) 0.05 H (0.001-0.031) x10^3u/L Absolute Lymphs (auto) 1.69 (1.18-3.74) x10^3/uL Absolute Monos (auto) 0.38 (0.24-0.86) x10^3/uL Absolute Nucleated RBC 0.00 (0.00-0.012) x10^3u/L Lymphocytes % 32.0 (19.3-51.7) % Monocytes % 7.2 (4.7-12.5) % Eosinophils % 1.9 (0.7-5.8) % Basophils % 1.1 (0.1-1.2) % Absolute Granulocytes 3.00 (1.56-6.13) x10^3/uL Basophils # 0.06 (0.01-0.08) x10^3/uL Sodium (135-145) mmol/L Potassium (3.5-5.1) mmol/L Chloride (98-107) mmol/L Carbon Dioxide (22-30) mmol/L Anion Gap (5-15) MEQ/L BUN (7-17) mg/dL Creatinine (0.52-1.04) mg/dL Estimated GFR ML/MIN Glucose (74-106) mg/dL Calcium (8.4-10.2) mg/dL Total Bilirubin (0.2-1.3) mg/dL AST (14-36) U/L ALT (0-35) U/L Alkaline Phosphatase (38-126) U/L Serum Total Protein (6.3-8.2) g/dL Albumin (3.5-5.0) g/dL Lipase (23-300) U/L ABO Group Rh Factor Antibody Screen (NEGATIVE) - Progress Progress: improved Progress Note: 10/31/24 08:16 Differential diagnosis includes kidney stone, compression fracture, infection, UTI, triple AAA - basic labs including: CBC, lipase, CMP, - insert IV for symptom management - consider imaging: CT ab/pelvis or U/S Reevaluation Patient feels improved with medication. Labs demonstrate hemoglobin near baseline. Creatinine is elevated, history of chronic kidney disease. Currently undergoing peritoneal dialysis. 10/31/24 11:04 We did repeat a hemoglobin at the 3-hour nano. This remained similar to original hemoglobin. We did obtain a CT scan without contrast secondary to elevated creatinine. This did not demonstrate any obvious masses, sources of bleed, diverticulitis, perforation, other surgical emergencies. Given the overall picture, I did offer admission to the hospital for rectal bleeding and observation. This would be to trend H&H's, potential colonoscopy, transfuse blood as needed if counts did end up dropping. This could potentially require transfer to another hospital as we may not have a GI physician here on-call this weekend to do scopes. Given that hemoglobin was stable, patient has no hypotension, no tachycardia, appears to be patient's history of potential internal hemorrhoids, I did explain the risks and benefits of going home to the patient. This included a conversation with the patient's , adult daughter and the patient. I did describe the risks and benefits of staying versus going home. This could include worsening symptoms, hypotension, other issue. Ultimately, using shared decision making, the family elected to go home today and return for any new or changing symptoms. They will call their PCP to get a repeat hemoglobin check and to schedule an outpatient colonoscopy. I did go over strict return precautions including going through more than 1 pad every 30 minutes, chest pain, dizziness, pale, worsening pain, or other new or different symptoms. They state their understanding will follow-up as described or return here if worse. Counseled pt/family regarding: lab results, diagnosis, need for follow-up, rad results Medical Desision Making - Independent Historian Additional History obtained from: Relative/friend, Pipe Jeeper - Diagnostic Testing Diagnostic test were ordered, analyzed, and reviewed by me: Yes Radiological Interpretation: Reviewed by me - Risk of complications Minimal Risk: Minimal risk of morbidity - Departure Departure Disposition: Home Clinical Impression: Rectal bleeding Condition: Stable Critical Care Time: No Referrals: KATHIE HODGE MD [Primary Care Provider, [facility]] - Follow up/PCP as directed Instructions: Gastrointestinal Bleeding (DC) Additional Instructions: Should you have any new, worsening symptoms, feel lightheaded, dizziness, any chest pain., Worsening bleeding, going through more than 1 pad every 30 minutes, return to emergently to the closest ER or call 911 for the closest transport.
[2024-10-31 08:24] LABS: ALBUMIN 3.2 g/dL (3.5-5.0); ANION GAP 10.4 MEQ/L (5-15); BILIRUBIN,TOTAL 0.7 mg/dL (0.2-1.3); Calcium 8.7 mg/dL (8.4-10.2); Creatinine 1 2.31 mg/dL (0.52-1.04); EST GLOMERULAR FILTRATION RATE 20.7 ML/MIN; Potassium 3.7 mmol/L (3.5-5.1); Total Protein 5.9 g/dL (6.3-8.2)
[2024-10-31 08:56] LABS: ABO TYPING O; Antibody Screen NEGATIVE (NEGATIVE); RH TYPING NEGATIVE
[2024-10-31] MEDS: COREG 12.5 MG PO ONE (10:00)
[2024-10-31 10:11] LABS: Absolute Neutrophil Ct (ANC) 2.61 x10^3/uL (1.56-6.13); BASOPHIL % 1.2 % (0.1-1.2); Basophil (Absolute #) 0.06 x10^3/uL (0.01-0.08); Eosinophil % 1.8 % (0.7-5.8); Eosinophil (Absolute #) 0.09 x10^3/uL (0.04-0.36); Hematocrit 30.6 % (34.1-44.9); Hemoglobin 9.1 g/dL (11.2-15.7); IMMATURE GRAN # 0.04 x10^3u/L (0.001-0.031); IMMATURE GRAN % 0.8 % (0.001-0.429); Lymphocyte (Absolute #) 1.77 x10^3/uL (1.18-3.74); Mean Cell Volume 102.7 fL (79.4-94.8); Mean Corpuscular Hemoglobin 30.5 pg (25.6-32.2); Mean Corpuscular Hgb Concent. 29.7 g/dL (32.2-35.5); Mean Platelet Volume 9.3 fL (9.4-12.3); Monocyte (Absolute #) 0.34 x10^3/uL (0.24-0.86); Monocytes % 6.9 % (4.7-12.5); Neutrophil % 53.3 % (34.0-71.1); Platelet Count 128 x10^3/uL (182-369); Red Blood Count 2.98 x10^6/uL (3.93-5.22); Red Cell Distribution Width 13.6 % (11.7-14.4); White Blood Count 4.9 x10^3/uL (3.98-10.04)
--- NOTE | 2024-10-31 10:13 | XRAY ---
Indication: Rectal bleeding. Chronic kidney disease. Multiple contiguous axial images obtained through the abdomen and pelvis without contrast per Comparison: April 19, 2024 Lung bases again demonstrate minimal bibasilar subsegmental atelectasis/scarring less than before. No infiltrate or effusion. Heart remains borderline enlarged with incompletely visualized pacer leads. Noncontrasted stomach and bowel loops appear nonobstructed. Again scattered sigmoid diverticulosis without diverticulitis. Lesser curvature stomach demonstrates new 1.6 x 0.6 cm metallic density presumed iatrogenic/postsurgical. Pelvis demonstrates new peritoneal dialysis catheter coiled. Liver again appears cirrhotic without focal solid/cystic mass. No free fluid/air. Remaining liver, pancreas, spleen, adrenal glands, kidneys, ureters, and bladder are unremarkable for noncontrast exam. 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 Osseous structures intact again with osteopenia, minimal/mild multilevel degenerative spondylosis, and incompletely visualized mild double curvature scoliosis. Impression: 1. New gastric wall metallic density presumed iatrogenic/postsurgical. Correlate with surgical history. 2. New peritoneal dialysis catheter coiled in pelvis. 3. Again chronic findings including borderline cardiomegaly, sigmoid diverticulosis, cirrhotic liver, arteriosclerotic disease, and chronic bony findings. 4. Remaining CT abdomen/pelvis without contrast exam is negative.
[2024-10-31 11:03] VITALS: O2SAT 97
[2024-10-31 11:05] VITALS: BP 157/91; PULSE 64; RESP 21
== END 2024-10-31 11:43 | disposition home or self-care (01) ==
LOC: ED 06:50
DX: K62.5 Hemorrhage of anus and rectum (principal); I10 Essential (primary) hypertension; E11.42 Type 2 diabetes mellitus with diabetic polyneuropathy; Z79.899 Other long term (current) drug therapy
CPT/HCPCS: 36415; 74176; 80053; 83690; 85025; 86850; 86900; 86901; 93005; 99284; A9270-GY